=== PATIENT | male | born 1970 | race Caucasian/White ===

== ENCOUNTER 2016-11-04 14:49 | Emergency (ER) | payer MEDICARE ==
[2016-11-04] MEDS ORDERED: Adacel Vial IM ONE ×2 (14:58→15:15)
[2016-11-04] MEDS ORDERED: XYLOCAINE 1% HCL 20 ML MDV IJ ONE (15:23)
[2016-11-04 15:24] LABS: Mean Cell Volume 90.4 fl (78-100); Mean Corpuscular Hemoglobin 28.9 pg (26-32); Mean Platelet Volume 10.5 fl (6-9.5); Platelet Count 55 K/mm3 (150-450); Red Blood Count 3.56 M/mm3 (4.1-5.6); Red Cell Distribution Width 15.7 % (11.5-14.0)
--- NOTE | 2016-11-04 15:26 | XRAY ---
Indication: Laceration. Comparison: None 2 projections of the right lower leg demonstrates diffuse soft tissue swelling/edema, mild osteopenia, distal tibial enchondroma, moderate tricompartmental knee degenerative changes, pretibial soft tissue calcified granulomas, and posterior heel spur. No other bony, articular, or soft tissue abnormalities.
[2016-11-04 15:32] LABS: INR 1.47 (0.8-3.0); PROTIME 16.3 SECONDS (8.83-12.87)
[2016-11-04] MEDS ORDERED: XYLOCAINE 1% HCL 20 ML MDV ONE (15:33)
--- NOTE | 2016-11-04 15:33 | XRAY ---
Indication: Right rib injury. Laceration. Comparison: None Portable chest demonstrates cardiomegaly and vascular congestion concerning for mild/early cardiac decompensation. Left costophrenic angle not included. No consolidation or large effusion. Bony thorax intact. Impression: Limited portable chest with cardiomegaly and vascular congestion. Rule out mild/early cardiac decompensation. Superimposed pneumonia not completely excluded.
[2016-11-04 15:40] LABS: ALBUMIN 2.5 g/dL (3.4-5.0); ALKALINE PHOSPHATASE 157 U/L (46-116); ANION GAP 10.5 MEQ/L (5-15); BILIRUBIN,TOTAL 0.6 mg/dL (0.2-1.0); BLOOD UREA NITROGEN 6 mg/dL (9-20); CHLORIDE 105 mEq/L (98-107); Carbon Dioxide 27.8 mEq/L (21-32); Glucose 113 MG/DL (70-110); Potassium 3.5 mEq/L (3.5-5.1); SGOT/AST 35 U/L (15-37); SGPT/ALT 14 U/L (12-78); SODIUM 140 mEq/L (136-145); Total Protein 6.3 gm/dL (6.4-8.2)
[2016-11-04 15:49] LABS: BAND 1 % (0.0-2.0); Eosinophil 6 % (0.00-3.0); Total Cells Counted 100
--- NOTE | 2016-11-04 15:52 | ERPHSYRPT ---
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 He uses a walker at home. Fell today. Cut to the right leg. Family placed a dog leash for tourniquette. He has some pain in right ribs. No head injury today but hit his head 10 days ago.Chronic neck pain. He has no back pain. He has some pain at the right knee. Unsure last tetanus. No diff breathing. He has been recently in the hospital for his liver disease. Timing/Duration: today Allergies/Adverse Reactions: No Known Drug Allergies Allergy (Unverified 11/04/16 15:03) Home Medications: Atenolol 50 mg [Tenormin 50 mg] 50 mg PO DAILY 11/04/16 [History] Bumetanide 1 mg [Bumex 1 mg] 1 mg PO BID 11/04/16 [History] Gabapentin [Neurontin] 600 mg PO TID 11/04/16 [History] Levothyroxine Sodium [Synthroid] 200 mcg PO DAILY 11/04/16 [History] Lisinopril 10 mg [Zestril 10 MG] 10 mg PO DAILY 11/04/16 [History] Omeprazole 20 MG [Prilosec 20 mg] 20 mg PO BID 11/04/16 [History] Oxcarbazepine 300 mg [Trileptal 300 MG Tablet] 300 mg PO BID 11/04/16 [ History] Oxybutynin Chloride Xl 5 mg [Ditropan XL 5 MG] 5 mg PO BID 11/04/16 [ History] Oxycodone HCl Cr 20 mg [Oxycontin 20 MG] 20 mg PO UD 11/04/16 [History] Potassium Chloride 20 Meq [Klor-Con 20 MEQ] 20 meq PO BID 11/04/16 [History] Promethazine HCl 25 mg [Phenergan 25 mg] 25 mg PO UD 11/04/16 [History] Quetiapine Fumarate [Seroquel Xr] 300 mg PO HS 11/04/16 [History] Rifaximin [Xifaxan] 550 mg PO BID 11/04/16 [History] Sertraline HCl [Zoloft] 100 mg PO BID 11/04/16 [History] Tizanidine HCl 4 mg [Zanaflex 4 MG] 4 mg PO TID 11/04/16 [History] Hx Tetanus, Diphtheria Vaccination/Date Given: No Hx Influenza Vaccination/Date Given: Yes (2015) Hx Pneumococcal Vaccination/Date Given: No Immunizations Up to Date: Yes - Review of Systems Constitutional: No Fever, No Chills Eyes: No Symptoms Ears, Nose, & Throat: No Symptoms Respiratory: Dyspnea on Exertion ([place]) (chronic), No Cough Cardiac: Chest Pain (right ribs) Abdominal/Gastrointestinal: No Abdominal Pain, No Nausea, No Vomiting Musculoskeletal: Injury (right lower leg), No Back Pain, No Neck Pain Neurological: No Focal Weakness, No Headache, No Parasthesia All Other Systems: Reviewed and Negative - Past Medical History Pertinent Past Medical History: Yes Endocrine Medical History: Hypothyroidism GI Medical History: Cirrhosis, Hepatitis - Past Surgical History Past Surgical History: Yes Gastrointestinal: Cholecystectomy - Social History Smoking Status: Current every day smoker How long have you smoked: YRS Exposure to second hand smoke: No Drug Use: none Patient Lives Alone: No - Nursing Vital Signs Nursing Vital Signs: Initial Vital Signs Temperature 98.8 F Temperature Source Oral Pulse Rate 60 Respiratory Rate 22 Blood Pressure [] 106/58 Pain Intensity 0 - Physical Exam General Appearance: alert, obese, other (edematous with leaking fluid from legs) Eye Exam: PERRL/EOMI Ears, Nose, Throat Exam: moist mucous membranes Neck Exam: normal inspection, non-tender, supple, No midline tenderness Respiratory Exam: normal breath sounds, lungs clear Cardiovascular Exam: regular rate/rhythm Gastrointestinal/Abdomen Exam: soft, No tenderness, No distention Back Exam: normal inspection, No vertebral tenderness Extremity Exam: lacerations (2 verticle right lower pretibial lacerations) Neurologic Exam: alert, oriented x 3, cooperative, No motor deficits Skin Exam: warm, dry SpO2 Interpretation: normal SpO2: 96 Oxygen Delivery: Room Air Procedures - Laceration/Wound Repair right lower leg pretibial area Wound Location: Right, lower leg Wound Length (cm): 9 Wound's Depth, Shape: linear, into subcut Wound Explored: no foreign body noted Irrigated: Yes Hibiclens Prep: Yes Anesthesia: local, 1% Lidocaine Volume Anesthetic (ccs): 10 Wound Repaired With: sutures Suture Size/Type: 4-0, prolene Progress: 11/04/16 16:35 4 cm vertical laceration closed with 4-0 prolene simple interupted and horizontal mattress sutures #4. 5cm vertical laceration closed with 4-0 prolene simple interupted and horizontal mattress sutures #7. The leg is leaking large clear serous fluid from edematous state. - Course Nursing assessment & vital signs reviewed: Yes - Radiology Exams right lower leg X-ray Interpretation: Discussed w/ radiologist, No Fracture cxr X-ray Interpretation: Discussed w/ radiologist (CM with possible cardiac decompensation) - CT Exams head, cervical CT Interpretation: Negative, Tele-radiologist Report Ordered Tests: Active Orders 24 hr Category Date Time Status Clean Catch Urine Specimen STAT Care 11/04/16 18:21 Active IV Insertion STAT Care 11/04/16 14:58 Active Prepare for Sutures STAT Care 11/04/16 15:23 Active Sutures STAT Care 11/04/16 15:24 Active Wound Care STAT Care 11/04/16 14:58 Active CERVICAL SPINE WO CONTRAST [CT] Stat Exams 11/04/16 16:33 Completed CHEST 1 VIEW (PORTABLE) Stat Exams 11/04/16 14:58 Completed HEAD WITHOUT CONTRAST [CT] Stat Exams 11/04/16 16:32 Completed LOWER LEG Stat Exams 11/04/16 14:58 Completed CBC W DIFF Stat Lab 11/04/16 15:05 Completed CMP Stat Lab 11/04/16 15:05 Completed MAG [MAGNESIUM] Stat Lab 11/04/16 16:18 Completed Manual Differential NC Stat Lab 11/04/16 15:05 Completed PROTIME WITH INR Stat Lab 11/04/16 15:05 Completed PTT Stat Lab 11/04/16 15:05 Completed Urine Triage Profile Stat Lab 11/04/16 18:21 Ordered Medication Summary Discontinued Medications Generic Name Dose Route Start Last Admin Trade Name Lonnie PRN Reason Stop Dose Admin Diphtheria/Tetanus/Acell Pertussis 0.5 ml 11/04/16 14:58 11/04/16 15:16 Adacel Vial IM 11/04/16 14:59 0.5 ml .ONCE ONE Administration Diphtheria/Tetanus/Acell Pertussis Confirm 11/04/16 15:15 Adacel Vial Administered 11/04/16 15:16 Dose 0.5 ml IM .STK-MED ONE Doxycycline Hyclate 100 mg 11/04/16 18:07 11/04/16 18:22 Vibramycin 100 Mg PO 11/04/16 18:08 100 mg STAT ONE Administration Doxycycline Hyclate Confirm 11/04/16 18:20 Vibramycin 100 Mg Administered 11/04/16 18:21 Dose 100 mg .ROUTE .STK-MED ONE Lidocaine HCl 5 ml 11/04/16 15:23 11/04/16 15:35 Xylocaine 1% Hcl 20 Ml Mdv IJ 11/04/16 15:24 5 ml STAT ONE Administration Lidocaine HCl Confirm 11/04/16 15:33 Xylocaine 1% Hcl 20 Ml Mdv Administered 11/04/16 15:34 Dose 5 ml .ROUTE .STK-MED ONE Lab/Rad Data: Laboratory Result Diagrams 11/04/16 15:05 11/04/16 15:05 Laboratory Results 11/04/16 11/04/16 11/04/16 Range/Units 16:18 16:18 15:05 WBC (4.0-10.5) K/mm3 RBC (4.1-5.6) M/mm3 Hgb (12.5-18.0) gm/dl Hct (42-50) % MCV (78-100) fl MCH (26-32) pg MCHC (32-36) g/dl RDW (11.5-14.0) % Plt Count (150-450) K/mm3 MPV (6-9.5) fl Segmented Neutrophils (36.-66.) % Band Neutrophils (0.0-2.0) % Lymphocytes (Manual) (24-44) % Monocytes (Manual) (0.0-12.0) % Eosinophils (Manual) (0.00-3.0) % Differential Comment Platelet Estimate (NORMAL) INR 1.47 (0.8-3.0) PTT 38.0 H (24.1-36.1) SECONDS Sodium (136-145) mEq/L Potassium (3.5-5.1) mEq/L Chloride (98-107) mEq/L Carbon Dioxide (21-32) mEq/L Anion Gap (5-15) MEQ/L BUN (9-20) mg/dL Creatinine (0.55-1.30) mg/dl Estimated GFR ML/MIN Glucose (70-110) MG/DL Calcium (8.5-10.1) mg/dL Magnesium 1.5 L (1.8-2.4) mg/dL Total Bilirubin (0.2-1.0) mg/dL AST (15-37) U/L ALT (12-78) U/L Alkaline Phosphatase (46-116) U/L Ammonia 55 H (11-32) MMOL/l Serum Total Protein (6.4-8.2) gm/dL Albumin (3.4-5.0) g/dL 11/04/16 11/04/16 Range/Units 15:05 15:05 WBC 4.0 (4.0-10.5) K/mm3 RBC 3.56 L (4.1-5.6) M/mm3 Hgb 10.3 L (12.5-18.0) gm/dl Hct 32.2 L (42-50) % MCV 90.4 (78-100) fl MCH 28.9 (26-32) pg MCHC 32.0 (32-36) g/dl RDW 15.7 H (11.5-14.0) % Plt Count 55 L (150-450) K/mm3 MPV 10.5 H (6-9.5) fl Segmented Neutrophils 50 (36.-66.) % Band Neutrophils 1 (0.0-2.0) % Lymphocytes (Manual) 38 (24-44) % Monocytes (Manual) 5 (0.0-12.0) % Eosinophils (Manual) 6 H (0.00-3.0) % Differential Comment NORMAL Platelet Estimate DECREASED (NORMAL) INR (0.8-3.0) PTT (24.1-36.1) SECONDS Sodium 140 (136-145) mEq/L Potassium 3.5 (3.5-5.1) mEq/L Chloride 105 (98-107) mEq/L Carbon Dioxide 27.8 (21-32) mEq/L Anion Gap 10.5 (5-15) MEQ/L BUN 6 L (9-20) mg/dL Creatinine 0.81 (0.55-1.30) mg/dl Estimated GFR > 60 ML/MIN Glucose 113 H (70-110) MG/DL Calcium 7.8 L (8.5-10.1) mg/dL Magnesium (1.8-2.4) mg/dL Total Bilirubin 0.6 (0.2-1.0) mg/dL AST 35 (15-37) U/L ALT 14 (12-78) U/L Alkaline Phosphatase 157 H (46-116) U/L Ammonia (11-32) MMOL/l Serum Total Protein 6.3 L (6.4-8.2) gm/dL Albumin 2.5 L (3.4-5.0) g/dL - Progress Progress Note: 11/04/16 16:36 While closing wound he is drowsy and has some lethargy. Ammonia and CT ordered. 11/04/16 18:37 Pt father here. He is stable. Explained wound will have likely risk of infection and poor healing. He has C. Called Dr Dia who advised labs are stable and release home with C. He advised send urine tox and start doxycycline. Nurses have contacted patient's home health care. Counseled pt/family regarding: lab results, diagnosis, need for follow-up, rad results - Departure Time of Disposition: 18:38 Departure Disposition: Home Clinical Impression: Laceration of leg not thigh, right, complicated, Cirrhosis, Anasarca Condition: Fair Critical Care Time: No Referrals: RAFAEL FAGAN [Primary Care Provider] - DEEPALI DIA MD [COURTESY STAFF] - Instructions: Care for a Laceration After Repair Additional Instructions: Elevate legs. Home health to change dressings. Change leg dressings daily. Keep dry dressings on leg. Call DR Dia tomorrow for further instructions. Rx doxycycline next dose in AM. Return to ER for further concerns. Follow up with Dr Dia for wound care. Prescriptions: Doxycycline Hyclate 100 mg [Vibramycin 100 MG] 1 tab PO BID #20 tab
[2016-11-04 15:53] LABS: Platelet Estimate DECREASED (NORMAL)
--- NOTE | 2016-11-04 17:12 | XRAY ---
Indication: Acute mental status change. Posterior head injury 6 days ago following fall. Multiple contiguous axial images obtained through the cervical spine. Sagittal and coronal reformatted images obtained. Comparison: None Axial images negative for acute fracture, suspicious bony lesions, or spinal canal stenosis. Moderate atlantoaxial degenerative changes. Mild C5-C7 degenerative endplate spurring and minimal bilateral degenerative facet arthropathy. Sagittal and coronal reformatted images demonstrates lordotic reversal, positional versus paraspinal muscular spasm. C6-C7 disc space narrowing. Small inferior C2 and opposing C4-C5 Schmorl nodes. No acute compression fracture, subluxation, or jump facet. Normal appearing craniocervical junction. Visualized noncontrasted soft tissues including lung apices unremarkable. Patient is edentulous. CT had reported separately. Impression: 1. Lordotic reversal, positional versus paraspinal spasm. 2. Negative for acute fracture/subluxation. 3. C5-C7 degenerative disc disease. 4. C2/C4/C5 Schmorl nodes. CTDI 72.86
--- NOTE | 2016-11-04 17:13 | XRAY ---
Indication: Acute mental status change. Posterior head injury 6 days ago following fall. Multiple contiguous axial images obtained through the head without contrast. Comparison: None Lateral ventricles are mildly asymmetric presumed developmental. Acute intracranial hemorrhage, abnormal extra-axial fluid collection, or mass effect. Fourth ventricle is midline without hydrocephalus. Cote-white matter differentiation preserved. Bony calvarium intact. Minimal mucosal thickening of both ethmoid sinuses. Mastoid air cells are clear. Impression: No acute intracranial abnormalities. Minimal paranasal sinus disease. CTDI 51.90
[2016-11-04] MEDS ORDERED: Vibramycin 100 MG PO ONE (18:07)
[2016-11-04] MEDS ORDERED: Vibramycin 100 MG ONE (18:20)
[2016-11-04] MEDS ORDERED: Lasix 40 MG/4 ML ONE (18:40)
[2016-11-04 18:41] VITALS: O2SAT 96
[2016-11-04] MEDS ORDERED: Lasix 40 MG/4 ML IV ONE (18:41)
[2016-11-04 19:33] VITALS: BP 108/57; PULSE 90
== END 2016-11-04 19:33 | disposition home or self-care (01) ==
LOC: MERGE 14:49 → ED 14:49
PROC: 0HQKXZZ Repair Right Lower Leg Skin, External Approach (ICD-10-PCS; principal; 2016-11-04)
DX: S81.811A Laceration without foreign body, right lower leg, initial encounter (principal); W10.9XXA Fall (on) (from) unspecified stairs and steps, initial encounter; K74.60 Unspecified cirrhosis of liver; R60.1 Generalized edema
CPT/HCPCS: 99284; 36000; 85610; 85730; 36415; 83735; 82140; 85025; 80053; 71010; 73590; 70450; 72125; 12004; A9270; 90471; 90715; 96374; J1940

== ENCOUNTER 2016-11-08 20:36 | Emergency (ER) | payer MEDICARE ==
--- NOTE | 2016-11-08 21:18 | ERPHSYRPT ---
- History of Present Illness Time Seen by Provider: 11/08/16 21:00 Source: patient Exam Limitations: clinical condition Patient Subjective Stated Complaint: pt states he feeel on wednesday and had sutures put in his rt leg, states they busted open today Triage Nursing Assessment: pt alert and oriented, answers questions approp. respirations nonlabored. transfer to stretcher from wheelchair with asssist of 1 , limping gait noted. lower ext oz and tight with lacerations to rt le, weeping noted from lacs. open wound noted to top of lt foot. no drainage. Physician History: PATIENT FELL AND SUSTAINED LACERATIONS OVER HIS RIGHT MID SOLOMON, EVALUATED IN EMERGENCY NOVEMBER 04, 2016, HAD WOUNDS SUTURED, NOW STATES SOME STITCHES HAVE PULLED THROUGH THE WOUND. DENIES FEVER OR CHILLS. Method of Injury: fell (4 DAYS AGO) Severity of Pain-Max: mild Severity of Pain-Current: mild Lower Extremities Pain: leg: right Modifying Factors: Improves With: nothing Associated Symptoms: none Allergies/Adverse Reactions: No Known Drug Allergies Allergy (Verified 11/08/16 21:20) Home Medications: Atenolol 50 mg [Tenormin 50 mg] 50 mg PO DAILY 11/04/16 [History] Bumetanide 1 mg [Bumex 1 mg] 1 mg PO BID 11/04/16 [History] Gabapentin [Neurontin] 600 mg PO TID 11/04/16 [History] Levothyroxine Sodium [Synthroid] 200 mcg PO DAILY 11/04/16 [History] Lisinopril 10 mg [Zestril 10 MG] 10 mg PO DAILY 11/04/16 [History] Omeprazole 20 MG [Prilosec 20 mg] 20 mg PO BID 11/04/16 [History] Oxcarbazepine 300 mg [Trileptal 300 MG Tablet] 300 mg PO BID 11/04/16 [ History] Oxybutynin Chloride Xl 5 mg [Ditropan XL 5 MG] 5 mg PO BID 11/04/16 [ History] Oxycodone HCl Cr 20 mg [Oxycontin 20 MG] 20 mg PO UD 11/04/16 [History] Potassium Chloride 20 Meq [Klor-Con 20 MEQ] 20 meq PO BID 11/04/16 [History] Promethazine HCl 25 mg [Phenergan 25 mg] 25 mg PO UD 11/04/16 [History] Quetiapine Fumarate [Seroquel Xr] 300 mg PO HS 11/04/16 [History] Rifaximin [Xifaxan] 550 mg PO BID 11/04/16 [History] Sertraline HCl [Zoloft] 100 mg PO BID 11/04/16 [History] Tizanidine HCl 4 mg [Zanaflex 4 MG] 4 mg PO TID 11/04/16 [History] Hx Tetanus, Diphtheria Vaccination/Date Given: No Hx Influenza Vaccination/Date Given: Yes (2015) Hx Pneumococcal Vaccination/Date Given: No Immunizations Up to Date: Yes - Review of Systems Constitutional: No Fever, No Chills Eyes: No Symptoms Ears, Nose, & Throat: No Symptoms Respiratory: No Cough, No Dyspnea Cardiac: No Chest Pain, No Edema, No Syncope Abdominal/Gastrointestinal: No Abdominal Pain, No Nausea, No Vomiting, No Diarrhea Genitourinary Symptoms: No Dysuria Musculoskeletal: Other (WOUND DRAINAGE), No Back Pain, No Neck Pain Skin: No Rash Neurological: No Dizziness, No Focal Weakness, No Sensory Changes Psychological: No Symptoms Endocrine: No Symptoms All Other Systems: Reviewed and Negative - Past Medical History Pertinent Past Medical History: Yes Cardiac History: Coronary Artery Disease, Hypertension Endocrine Medical History: Hypothyroidism Musculoskeletal History: Osteoarthritis GI Medical History: Hepatitis, Cirrhosis Other Medical History: frequent cellutlitis in lower ext - Past Surgical History Past Surgical History: Yes Gastrointestinal: Cholecystectomy Musculoskeletal: Orthopedic Surgery - Social History Smoking Status: Current every day smoker How long have you smoked: YRS Exposure to second hand smoke: No Drug Use: none Patient Lives Alone: No - Nursing Vital Signs Nursing Vital Signs: Initial Vital Signs Temperature 98.7 F Temperature Source Oral Pulse Rate 63 Respiratory Rate 18 Blood Pressure [Right Arm] 110/48 Pain Intensity 9 - Physical Exam General Appearance: alert Eyes, Ears, Nose, Throat Exam: moist mucous membranes Neck Exam: non-tender, supple Cardiovascular/Respiratory Exam: chest non-tender, normal breath sounds, regular rate/rhythm, no respiratory distress Back Exam: No vertebral tenderness Legs Exam: right leg: other (RIGHT INCISIONAL WOUND EDGES INTACT, SOME OF STITCHES PULLED THROUGH WOUND EDGES, NO ERYTHEMA OF WOUND EDGES) Foot Exam: bilateral foot: other (BILATERAL PEDIS PULSES 2+) Neuro/Tendon Exam: normal sensation, normal motor functions Mental Status Exam: alert, oriented x 3, cooperative Skin Exam: normal color, warm, dry SpO2: 99 Oxygen Delivery: Room Air - Progress Counseled pt/family regarding: diagnosis, need for follow-up - Departure Time of Disposition: 21:35 Departure Disposition: Home Clinical Impression: WOUND RECHECK Condition: Stable Critical Care Time: No Referrals: RAFAEL FAGAN [Primary Care Provider] - Additional Instructions: CONTINUE ANTIBIOTIC PRESCRIBED. ELEVATE FEET WHILE SUPINE OR SITTING POSITION. CLEANSE WOUNDS WITH SOAP AND WATER TWICE DAILY. CONTINUE DRESSING CHANGES EVERY 6 HOURS NEEDED. MAY USE BACITRACIN OINTMENT OVER WOUND AFTER CLEANSING WITH SOAP AND WATER. CONSULT YOUR FAMILY PHYSICIAN FOR EVALUATION IN 4 -5 DAYS. RETURN TO EMERGENCY FOR ONSET OF FEVER OR CHILLS.
[2016-11-08 21:57] VITALS: BP 110/60; PULSE 64; O2SAT 100
== END 2016-11-08 21:57 | disposition home or self-care (01) ==
LOC: ED 20:36
DX: T81.33XA Disruption of traumatic injury wound repair, initial encounter (principal)
CPT/HCPCS: 99281

== ENCOUNTER 2016-12-26 23:36 | Emergency (ER) | payer MEDICARE ==
[2016-12-27] MEDS ORDERED: Hydromorphone 1 mg/ml Ampule IV ONE ×2 (00:29→03:29)
[2016-12-27] MEDS ORDERED: FEVERALL 650 MG PR STA (00:29)
[2016-12-27] MEDS ORDERED: Sodium Chloride 0.9% 1000 ML 1,000 ML IV SCH (00:30)
[2016-12-27] MEDS ORDERED: ROCEPHIN 2 Gm-D5w 50ML BAG** 50 ML IV ONE ×2 (00:33→00:48)
[2016-12-27] MEDS ORDERED: Zofran 4 MG/2 ML VIAL IV ONE (00:37)
--- NOTE | 2016-12-27 00:37 | ERPHSYRPT ---
- History of Present Illness Time Seen by Provider: 12/27/16 00:14 Historian: patient, family Patient Subjective Stated Complaint: states that he has had fever on and off for the last 9 days - nausea and vomiting x 3 days x multiple episodes - called liver specialist in [facility], who advised him to be seen - is awaiting a liver transplant - states that he also quit taking his Percocet and MS x 3 weeks ago Triage Nursing Assessment: wc to treatment area - assisted to cart per EMS personnel - moves all extremities with some rigidity. alert/oriented - flat affect. skin hot/dry - no rash - states that he fell a few days ago et has some injury on the left anterior foot as a result. res Physician History: CC: fever, abd pain Hx: 46 y/o male patient of Dr Pelaez/Minerv[place]. He has hx of stage 4 cirrhosis and ascites with hx of hepatic encephalopathy. He reports recent fall with rib fractures. He has had fevers for the past 9 nights. [facility] has visited. He now has abd pain. Decreased urination 3 times today and occasional incontinence. No shortness of breath. Not confused. Timing/Duration: today (worse) Severity of Pain-Max: moderate Severity of Pain-Current: moderate Allergies/Adverse Reactions: No Known Drug Allergies Allergy (Verified 12/26/16 23:46) Home Medications: Atenolol 50 mg [Tenormin 50 mg] 50 mg PO DAILY 11/04/16 [History] Bumetanide 1 mg [Bumex 1 mg] 1 mg PO BID 11/04/16 [History] Levothyroxine Sodium [Synthroid] 200 mcg PO DAILY 11/04/16 [History] Lisinopril 10 mg [Zestril 10 MG] 10 mg PO DAILY 11/04/16 [History] Omeprazole 20 MG [Prilosec 20 mg] 20 mg PO BID 11/04/16 [History] Oxcarbazepine 300 mg [Trileptal 300 MG Tablet] 300 mg PO BID 11/04/16 [ History] Oxybutynin Chloride Xl 5 mg [Ditropan XL 5 MG] 5 mg PO BID 11/04/16 [ History] Potassium Chloride 20 Meq [Klor-Con 20 MEQ] 40 meq PO BID 11/04/16 [History] Promethazine HCl 25 mg [Phenergan 25 mg] 25 mg PO UD PRN 11/04/16 [History ] Quetiapine Fumarate [Seroquel Xr] 75 mg PO DAILY 11/04/16 [History] Rifaximin [Xifaxan] 550 mg PO BID 11/04/16 [History] Tizanidine HCl 4 mg [Zanaflex 4 MG] 4 mg PO TID 11/04/16 [History] Cephalexin Monohydrate [Cephalexin] 500 mg PO QID 11/08/16 [History] Lactulose 10 gm PO QID 11/08/16 [History] Polyethylene Glycol 3350 17 gm [Miralax Powder 17GM PACKET] 17 gm PO QID 08/15 [History] Hx Tetanus, Diphtheria Vaccination/Date Given: Yes Hx Influenza Vaccination/Date Given: Yes Hx Pneumococcal Vaccination/Date Given: No Immunizations Up to Date: Yes - Review of Systems Constitutional: Fever, Chills, Fatigue, Malaise Eyes: No Symptoms Ears, Nose, & Throat: No Symptoms Respiratory: No Cough Cardiac: No Chest Pain Abdominal/Gastrointestinal: Abdominal Pain, Nausea, No Vomiting, No Diarrhea Genitourinary Symptoms: Incontinence, No Dysuria Musculoskeletal: No Back Pain Skin: No Rash Neurological: No Headache All Other Systems: Reviewed and Negative - Past Medical History Pertinent Past Medical History: Yes Cardiac History: Coronary Artery Disease, Hypertension Endocrine Medical History: Hypothyroidism Musculoskeletal History: Osteoarthritis GI Medical History: Hepatitis, Cirrhosis Other Medical History: frequent cellutlitis in lower ext - Past Surgical History Past Surgical History: Yes Gastrointestinal: Cholecystectomy Musculoskeletal: Orthopedic Surgery - Social History Smoking Status: Former smoker How long have you smoked: YRS Exposure to second hand smoke: No Drug Use: none Patient Lives Alone: No - Nursing Vital Signs Nursing Vital Signs: Initial Vital Signs Temperature 100.6 F Temperature Source Oral Pulse Rate 95 Respiratory Rate 20 Blood Pressure [] 142/73 Pain Intensity 0 - Physical Exam General Appearance: alert Eye Exam: PERRL/EOMI, No scleral icterus Ears, Nose, Throat Exam: normal ENT inspection, dry mucous membranes Neck Exam: normal inspection, supple Respiratory Exam: normal breath sounds, chest tenderness Cardiovascular Exam: regular rate/rhythm, No murmur Gastrointestinal/Abdomen Exam: soft, tenderness (diffuse without point tenderness) Male Genitalia Exam: No testicular tenderness Back Exam: normal inspection Extremity Exam: normal range of motion, pedal edema, other (brawny edema, no rosette cellulitis, venous stasis changes) Neurologic Exam: alert, oriented x 3, cooperative, welt beater II-XII nml as tested, sensation nml, No motor deficits Skin Exam: dry, other (hot skin) SpO2 Interpretation: normal SpO2: 94 Oxygen Delivery: Room Air - Course Nursing assessment & vital signs reviewed: Yes - Radiology Exams cxr X-ray Interpretation: Reviewed by me (mild congestion) - CT Exams abd/pelvis CT Interpretation: Tele-radiologist Report (cirrhosis, ascites, inflammation of dudodenum and pancreas, multiple healing rib fractures, severe splenomegaly) Ordered Tests: Active Orders 24 hr Category Date Time Status Catheter-[place] Reyes STAT Care 12/27/16 00:28 Active Clean Catch Urine Specimen STAT Care 12/27/16 00:19 Active IV Insertion STAT Care 12/27/16 00:19 Active NPO (ED) STAT Care 12/27/16 00:19 Active Rectal Temperature STAT Care 12/27/16 00:29 Active ABDOMEN AND PELVIS W/0 CONTRAS [CT] Stat Exams 12/27/16 00:29 Taken CHEST 1 VIEW (PORTABLE) Stat Exams 12/27/16 00:29 Taken BLOOD CULTURE Stat Lab 12/27/16 00:56 Received BMP Stat Lab 12/27/16 00:40 Completed CBC W DIFF Stat Lab 12/27/16 00:40 Completed CULTURE,URINE Stat Lab 12/27/16 01:30 Received HEPATIC FUNCTION PANEL Stat Lab 12/27/16 00:40 Completed LIPASE Stat Lab 12/27/16 00:40 Completed Lactic Acid Urgent Lab 12/27/16 00:45 Completed Manual Differential NC Stat Lab 12/27/16 00:40 Completed PROTIME WITH INR Stat Lab 12/27/16 00:40 Completed UA W/ MICROSCOPIC Stat Lab 12/27/16 01:30 Completed Medication Summary Generic Name Dose Route Start Last Admin Trade Name Freq PRN Reason Stop Dose Admin Sodium Chloride 1,000 mls @ 100 mls/hr 12/27/16 00:30 12/27/16 00:50 Sodium Chloride 0.9% 1000 Ml IV 01/26/17 00:29 100 mls/hr .Q10H MENDEL Administration Discontinued Medications Generic Name Dose Route Start Last Admin Trade Name Lonnie PRN Reason Stop Dose Admin Acetaminophen 975 mg 12/27/16 00:29 12/27/16 01:05 Feverall 650 Mg MD 12/27/16 00:30 975 mg STAT STA Administration Acetaminophen Confirm 12/27/16 00:48 Feverall 650 Mg Administered 12/27/16 00:49 Dose 1,300 mg .ROUTE .STK-MED ONE Famotidine 20 mg 12/27/16 01:56 12/27/16 02:01 Pepcid 20 Mg Vial IV 12/27/16 01:57 20 mg STAT ONE Administration Famotidine Confirm 12/27/16 01:59 Pepcid 20 Mg Vial Administered 12/27/16 02:00 Dose 20 mg IV .STK-MED ONE Hydromorphone HCl 1 mg 12/27/16 00:29 12/27/16 01:00 Hydromorphone 1 Mg/Ml Ampule IV 12/27/16 00:30 1 mg STAT ONE Administration Hydromorphone HCl Confirm 12/27/16 00:48 Hydromorphone 1 Mg/Ml Ampule Administered 12/27/16 00:49 Dose 1 mg .ROUTE .STK-MED ONE Ceftriaxone Sodium/Dextrose 50 mls @ 100 mls/hr 12/27/16 00:33 12/27/16 00:50 Rocephin 2 Gm-D5w 50ml Bag IV 12/27/16 01:02 100 mls/hr STAT ONE Administration Ceftriaxone Sodium/Dextrose Confirm 12/27/16 00:48 Rocephin 2 Gm-D5w 50ml Bag Administered 12/27/16 00:49 Dose 50 mls @ ud IV .STK-MED ONE Ondansetron HCl 4 mg 12/27/16 00:37 12/27/16 01:00 Zofran 4 Mg/2 Ml Vial IV 12/27/16 00:38 4 mg STAT ONE Administration Ondansetron HCl Confirm 12/27/16 00:48 Zofran 4 Mg/2 Ml Vial Administered 12/27/16 00:49 Dose 4 mg .ROUTE .STK-MED ONE Lab/Rad Data: Laboratory Result Diagrams 12/27/16 00:40 12/27/16 00:40 Laboratory Results 12/27/16 12/27/16 12/27/16 Range/Units 01:30 00:45 00:40 WBC (4.0-10.5) K/mm3 RBC (4.1-5.6) M/mm3 Hgb (12.5-18.0) gm/dl Hct (42-50) % MCV (78-100) fl MCH (26-32) pg MCHC (32-36) g/dl RDW (11.5-14.0) % Plt Count (150-450) K/mm3 MPV (6-9.5) fl Segmented Neutrophils (36.-66.) % Lymphocytes (Manual) (24-44) % Monocytes (Manual) (0.0-12.0) % Eosinophils (Manual) (0.00-3.0) % Differential Comment Platelet Estimate (NORMAL) INR (0.8-3.0) Sodium (136-145) mEq/L Potassium (3.5-5.1) mEq/L Chloride (98-107) mEq/L Carbon Dioxide (21-32) mEq/L Anion Gap (5-15) MEQ/L BUN (9-20) mg/dL Creatinine (0.55-1.30) mg/dl Estimated GFR ML/MIN Glucose (70-110) MG/DL Lactic Acid 1.1 (0.4-2.0) Calcium (8.5-10.1) mg/dL Total Bilirubin (0.2-1.0) mg/dL Direct Bilirubin (0.0-0.2) MG/DL AST (15-37) U/L ALT (12-78) U/L Alkaline Phosphatase (46-116) U/L Ammonia 28 (11-32) MMOL/l Serum Total Protein (6.4-8.2) gm/dL Albumin (3.4-5.0) g/dL Lipase (73-393) U/L Ur Collection Type CATH Urine Color KIERA (YELLOW) Urine Appearance CLEAR (CLEAR) Urine pH 9.0 (5-6) Ur Specific [place] 1.015 (1.005-1.025) Urine Protein 30 (Negative) Urine Glucose (UA) NEGATIVE (NEGATIVE) mg/dL Urine Ketones NEGATIVE (NEGATIVE) Urine Nitrite NEGATIVE (NEGATIVE) Urine Bilirubin NEGATIVE (NEGATIVE) Urine Urobilinogen 2 (0-1) mg/dL Urine WBC (Auto) NEGATIVE (NEGATIVE) Urine RBC (Auto) NEGATIVE (0-5) Christopher/ul Urine Bacteria RARE (NEGATIVE) /HPF Urine Mucus SLIGHT (NEGATIVE) /HPF Specimen Received 12/27/16:0130 12/27/16 12/27/16 12/27/16 Range/Units 00:40 00:40 00:40 WBC 9.1 (4.0-10.5) K/mm3 RBC 3.98 L (4.1-5.6) M/mm3 Hgb 11.3 L (12.5-18.0) gm/dl Hct 34.6 L (42-50) % MCV 86.9 (78-100) fl MCH 28.3 (26-32) pg MCHC 32.7 (32-36) g/dl RDW 16.8 H (11.5-14.0) % Plt Count 44 L (150-450) K/mm3 MPV 10.4 H (6-9.5) fl Segmented Neutrophils 86 H (36.-66.) % Lymphocytes (Manual) 6 L (24-44) % Monocytes (Manual) 6 (0.0-12.0) % Eosinophils (Manual) 2 (0.00-3.0) % Differential Comment NORMAL Platelet Estimate DECREASED (NORMAL) INR 1.46 (0.8-3.0) Sodium 138 (136-145) mEq/L Potassium 4.5 (3.5-5.1) mEq/L Chloride 105 (98-107) mEq/L Carbon Dioxide 27.3 (21-32) mEq/L Anion Gap 10.1 (5-15) MEQ/L BUN 6 L (9-20) mg/dL Creatinine 0.69 (0.55-1.30) mg/dl Estimated GFR > 60 ML/MIN Glucose 113 H (70-110) MG/DL Lactic Acid (0.4-2.0) Calcium 8.5 (8.5-10.1) mg/dL Total Bilirubin 1.3 H (0.2-1.0) mg/dL Direct Bilirubin 0.35 H (0.0-0.2) MG/DL AST 31 (15-37) U/L ALT 17 (12-78) U/L Alkaline Phosphatase 138 H (46-116) U/L Ammonia (11-32) MMOL/l Serum Total Protein 6.5 (6.4-8.2) gm/dL Albumin 2.4 L (3.4-5.0) g/dL Lipase 191 (73-393) U/L Ur Collection Type Urine Color (YELLOW) Urine Appearance (CLEAR) Urine pH (5-6) Ur Specific [place] (1.005-1.025) Urine Protein (Negative) Urine Glucose (UA) (NEGATIVE) mg/dL Urine Ketones (NEGATIVE) Urine Nitrite (NEGATIVE) Urine Bilirubin (NEGATIVE) Urine Urobilinogen (0-1) mg/dL Urine WBC (Auto) (NEGATIVE) Urine RBC (Auto) (0-5) Christopher/ul Urine Bacteria (NEGATIVE) /HPF Urine Mucus (NEGATIVE) /HPF Specimen Received - Progress Progress Note: 12/27/16 02:27 Pt stable here. He requests admission at [facility] as that is the hospital he usually goes to and he sees Dr Palma. Called [facility] one call and spoke to Dr Palma who advised pt should be admitted to hospitalist. Spoke to hospitalist Dr Patten who accepts pt. Cultures sent. Rocephin given. He needs coverage for SBP. Counseled pt/family regarding: lab results, diagnosis, need for follow-up, rad results - Departure Time of Disposition: 02:29 Departure Disposition: Transfer Clinical Impression: Spontaneous bacterial peritonitis, Cirrhosis, Fever Condition: Fair Critical Care Time: No
[2016-12-27] MEDS ORDERED: FEVERALL 650 MG ONE (00:48)
[2016-12-27] MEDS ORDERED: Hydromorphone 1 mg/ml Ampule ONE ×2 (00:48→04:05)
[2016-12-27] MEDS ORDERED: Sodium Chloride 0.9% 1000 ML 1,000 ML ONE (00:48)
[2016-12-27] MEDS ORDERED: Zofran 4 MG/2 ML VIAL ONE (00:48)
[2016-12-27 01:00] LABS: Mean Cell Volume 86.9 fl (78-100); Mean Platelet Volume 10.4 fl (6-9.5); Platelet Count 44 K/mm3 (150-450); Red Blood Count 3.98 M/mm3 (4.1-5.6); Red Cell Distribution Width 16.8 % (11.5-14.0); White Blood Count 9.1 K/mm3 (4.0-10.5)
[2016-12-27 01:06] LABS: Mean Corpuscular Hemoglobin 28.3 pg (26-32)
[2016-12-27 01:11] LABS: INR 1.46 (0.8-3.0); PROTIME 16.2 SECONDS (8.83-12.87)
[2016-12-27 01:20] LABS: ALBUMIN 2.4 g/dL (3.4-5.0); ALKALINE PHOSPHATASE 138 U/L (46-116); ANION GAP 10.1 MEQ/L (5-15); BILIRUBIN,TOTAL 1.3 mg/dL (0.2-1.0); BLOOD UREA NITROGEN 6 mg/dL (9-20); CHLORIDE 105 mEq/L (98-107); Carbon Dioxide 27.3 mEq/L (21-32); Direct Bilirubin 0.35 MG/DL (0.0-0.2); Glucose 113 MG/DL (70-110); LIPASE 191 U/L (73-393); Potassium 4.5 mEq/L (3.5-5.1); SGOT/AST 31 U/L (15-37); SGPT/ALT 17 U/L (12-78); SODIUM 138 mEq/L (136-145); Total Protein 6.5 gm/dL (6.4-8.2)
[2016-12-27 01:48] LABS: Bacteria RARE /HPF (NEGATIVE); COMPLETE URINE MICROSCOPIC? YES; Collection Type CATH; Mucus SLIGHT /HPF (NEGATIVE)
[2016-12-27 01:49] LABS: Eosinophil 2 % (0.00-3.0); Platelet Estimate DECREASED (NORMAL); Total Cells Counted 100
[2016-12-27] MEDS ORDERED: Pepcid 20 MG VIAL IV ONE ×2 (01:56→01:59)
[2016-12-27 02:05] VITALS: O2SAT 94
[2016-12-27 03:36] VITALS: BP 149/71; PULSE 94
--- NOTE | 2016-12-27 08:52 | XRAY ---
Indication: Fever and productive cough. Comparison: None Portable apical lordotic chest clear. Heart and mediastinal structures within normal limits. Bony thorax intact. Impression: Nonacute chest.
--- NOTE | 2016-12-27 08:57 | XRAY ---
Indication: Nausea and vomiting. Chronic intermittent fever for 9 months. Awaiting liver transplant. Multiple contiguous axial images obtained through the abdomen and pelvis without contrast as ordered. Comparison: None Study slightly degraded due to patient body habitus. Lung bases are clear. Heart is not enlarged. Diffusely cirrhotic liver with small abdominal/pelvic ascites predominantly around the liver. Diffuse mesenteric congestion. Spleen is enlarged measuring 20 cm in greatest axial dimension. No walled off fluid collection or free air. Stomach is distended with food/fluid. Noncontrasted bowel loops appear nonobstructed. There is moderate circumferential wall thickening involving the distal descending and transverse duodenum favoring duodenitis. Pancreatic head demonstrates subtle hypoattenuation suggesting pancreatitis. Previous cholecystectomy. Reyes catheter empties the bladder. Small centimeter/subcentimeter periaortic nodes. Scattered 1 cm inguinal lymph nodes bilaterally. Remaining adrenal glands, kidneys, ureters, and aorta appear unremarkable. Minimal iliac artery calcifications. Osseous structures intact with mild degenerative changes throughout the spine greatest at the L4-L5 level. Small multilevel Schmorl nodes, largest T8. Healing bilateral lower rib fractures. Impression: 1. Limited exam due to body habitus. 2. Inflammation involving the head of the pancreas and duodenum as detailed favoring duodenitis and pancreatitis. 3. Cirrhotic liver with abdominal/pelvic ascites, mesenteric congestion, and splenomegaly. 4. Nonspecific scattered small periaortic and bilateral inguinal lymph nodes. Comment: Preliminary interpretation was made by C. No critical discrepancy CTDI 23.68
== END 2016-12-27 04:35 | disposition short-term general hospital (02) ==
LOC: ED 23:36
DX: K65.2 Spontaneous bacterial peritonitis (principal); K74.60 Unspecified cirrhosis of liver; R50.9 Fever, unspecified; I25.10 Atherosclerotic heart disease of native coronary artery without angina pectoris; I10 Essential (primary) hypertension; E03.9 Hypothyroidism, unspecified; Z79.899 Other long term (current) drug therapy; M19.90 Unspecified osteoarthritis, unspecified site
CPT/HCPCS: 36000; 36415; 51702; 71010; 74176; 80048; 80076; 81000; 82140; 83605; 83690; 85025; 85610; 87040; 87086; 96360; 96365; 96374; 96375; 96376; 99285; J0696; J1170; J2405; A9270-GY

== ENCOUNTER 2018-11-03 19:23 | Observation (INO) | payer MEDICARE ==
[2018-11-03] MEDS ORDERED: Zofran 4 MG/2 ML VIAL IV ONE (20:01)
[2018-11-03] MEDS ORDERED: Pepcid 20 MG VIAL IV ONE ×2 (20:01→20:38)
[2018-11-03] MEDS ORDERED: Sodium Chloride 0.9% 1000 ML 1,000 ML IV STA ×2 (20:01→21:29)
--- NOTE | 2018-11-03 20:01 | ERPHSYRPT ---
- History of Present Illness Time Seen by Provider: 11/03/18 20:00 Historian: patient, family Exam Limitations: no limitations Physician History: 48 y/o white male presents with 9 days nausea, vomiting and diarrhea. pt has had a mild cough. sx not improving. pt began with fever today. pt has not taken any meds to tx fever. no cp, no abd pain. denies earaches, denies sore throat. Timing/Duration: day(s) (9 n/v/d.) Abdominal Pain Onset Location: other (no abd pain) Severity of Pain-Max: none Severity of Pain-Current: none Modifying Factors: Improves With: coughing, vomiting Associated Symptoms: diarrhea, loss of appetite, nausea, vomiting, weakness, No shortness of breath Previous symptoms: no prior history Allergies/Adverse Reactions: nitrofurantoin [From Macrobid] Allergy (Verified 11/03/18 19:35) Home Medications: Atenolol 50 mg [Tenormin 50 mg] 50 mg PO DAILY 11/04/16 [History] Bumetanide 1 mg [Bumex 1 mg] 1 mg PO BID 11/04/16 [History] Levothyroxine Sodium [Synthroid] 200 mcg PO DAILY 11/04/16 [History] Lisinopril 10 mg [Zestril 10 MG] 10 mg PO DAILY 11/04/16 [History] Omeprazole 20 MG [Prilosec 20 mg] 20 mg PO BID 11/04/16 [History] Oxcarbazepine 300 mg [Trileptal 300 MG Tablet] 300 mg PO BID 11/04/16 [ History] Oxybutynin Chloride Xl 5 mg [Ditropan XL 5 MG] 5 mg PO BID 11/04/16 [ History] Potassium Chloride 20 Meq [Klor-Con 20 MEQ] 40 meq PO BID 11/04/16 [History] Promethazine HCl 25 mg [Phenergan 25 mg] 25 mg PO UD PRN 11/04/16 [History ] Quetiapine Fumarate [Seroquel Xr] 75 mg PO DAILY 11/04/16 [History] Rifaximin [Xifaxan] 550 mg PO BID 11/04/16 [History] Tizanidine HCl 4 mg [Zanaflex 4 MG] 4 mg PO TID 11/04/16 [History] Cephalexin Monohydrate [Cephalexin] 500 mg PO QID 11/08/16 [History] Lactulose 10 gm PO QID 11/08/16 [History] Polyethylene Glycol 3350 17 gm [Miralax Powder 17GM PACKET] 17 gm PO QID 08/15 [History] Hx Tetanus, Diphtheria Vaccination/Date Given: Yes Hx Influenza Vaccination/Date Given: Yes Hx Pneumococcal Vaccination/Date Given: No - Review of Systems Constitutional: Fever, Weakness Eyes: No Symptoms Ears, Nose, & Throat: No Symptoms Respiratory: Cough Cardiac: No Symptoms Abdominal/Gastrointestinal: Nausea, Vomiting, Diarrhea, No Abdominal Pain Genitourinary Symptoms: No Symptoms, No Dysuria, No Frequency, No Hematuria Musculoskeletal: Arthralgias, Myalgias Neurological: No Symptoms Psychological: No Symptoms Endocrine: No Symptoms Hematologic/Lymphatic: No Symptoms Immunological/Allergic: No Symptoms All Other Systems: Reviewed and Negative - Past Medical History Pertinent Past Medical History: Yes Neurological History: No Pertinent History ENT History: No Pertinent History Cardiac History: Coronary Artery Disease, Hypertension Respiratory History: No Pertinent History Endocrine Medical History: Hypothyroidism Musculoskeletal History: Osteoarthritis GI Medical History: Hepatitis, Cirrhosis History: No Pertinent History Psycho-Social History: No Pertinent History Other Medical History: frequent cellutlitis in lower ext - Past Surgical History Past Surgical History: Yes Neuro Surgical History: No Pertinent History Cardiac: No Pertinent History Respiratory: No Pertinent History Gastrointestinal: Cholecystectomy Musculoskeletal: Orthopedic Surgery - Social History Smoking Status: Former smoker How long have you smoked: YRS Exposure to second hand smoke: No Drug Use: none Patient Lives Alone: No - Nursing Vital Signs Nursing Vital Signs: Initial Vital Signs Temperature 101.7 F 11/03/18 19:35 Pulse Rate 58 L 11/03/18 19:35 Respiratory Rate 20 11/03/18 19:35 Blood Pressure 176/90 11/03/18 19:35 O2 Sat by Pulse Oximetry 95 11/03/18 19:35 Pain Scale Pain Intensity 6 - Physical Exam General Appearance: mild distress, alert, anxiety Eye Exam: PERRL/EOMI, eyes nml inspection Ears, Nose, Throat Exam: normal ENT inspection, TMs normal, pharynx normal, dry mucous membranes Neck Exam: normal inspection, non-tender, supple, full range of motion Respiratory Exam: normal breath sounds, lungs clear, airway intact, No chest tenderness, No respiratory distress, No diminished breath sounds, No accessory muscle use Cardiovascular Exam: regular rate/rhythm, normal heart sounds, normal peripheral pulses Gastrointestinal/Abdomen Exam: soft, normal bowel sounds, No tenderness, No guarding, No rebound Rectal Exam: not done Back Exam: normal inspection, normal range of motion, No CVA tenderness, No vertebral tenderness Extremity Exam: normal inspection, normal range of motion, pelvis stable Neurologic Exam: alert, oriented x 3, cooperative, jewelry setter II-XII nml as tested Skin Exam: normal color, warm, dry Lymphatic Exam: No adenopathy SpO2 Interpretation: normal O2 Delivery: Room Air - Course Nursing assessment & vital signs reviewed: Yes Ordered Tests: Active Orders 24 hr Category Date Time Status Clean Catch Urine Specimen STAT Care 11/03/18 20:01 Active IV Insertion STAT Care 11/03/18 20:01 Active CHEST 1 VIEW (PORTABLE) Stat Exams 11/03/18 20:02 Taken AMYLASE Stat Lab 11/03/18 20:44 Completed BLOOD CULTURE Stat Lab 11/03/18 20:44 Received CBC W DIFF Stat Lab 11/03/18 20:44 Completed CMP Stat Lab 11/03/18 20:44 Completed LIPASE Stat Lab 11/03/18 20:44 Completed Lactic Acid Stat Lab 11/03/18 20:37 Completed Mccormick Screen Stat Lab 11/03/18 20:44 Completed UA W/RFX UR CULTURE Stat Lab 11/03/18 20:34 Completed Peak Expiratory Flow Rate DAILY RT 11/03/18 21:55 Active Respiratory Therapy Assessment DAILY RT 11/03/18 21:56 Active Medication Summary Discontinued Medications Generic Name Dose Route Start Last Admin Trade Name Freq PRN Reason Stop Dose Admin Hydrocodone Bitart/Acetaminophen 10 ml 11/03/18 20:28 11/03/18 20:42 Hydrocodone-Acetamin 2.5-108/5 Ml Solution PO 11/03/18 20:29 10 ml STAT STA Administration Hydrocodone Bitart/Acetaminophen Confirm 11/03/18 20:38 Hydrocodone-Acetamin 2.5-108/5 Ml Solution Administered 11/03/18 20:39 Dose 10 ml .ROUTE .STK-MED ONE Albuterol/Ipratropium 3 ml 11/03/18 21:50 11/03/18 21:53 Duoneb 0.5-3 Mg/3 Ml Neb IH 11/03/18 21:51 3 ml STAT ONE Administration Albuterol/Ipratropium Confirm 11/03/18 21:52 Duoneb 0.5-3 Mg/3 Ml Neb Administered 11/03/18 21:53 Dose 3 ml IH .STK-MED ONE Famotidine 40 mg 11/03/18 20:01 11/03/18 20:43 Pepcid 20 Mg Vial IV 11/03/18 20:02 40 mg STAT ONE Administration Famotidine Confirm 11/03/18 20:38 Pepcid 20 Mg Vial Administered 11/03/18 20:39 Dose 40 mg IV .STK-MED ONE Sodium Chloride 1,000 mls @ 999 mls/hr 11/03/18 20:01 11/03/18 21:45 Sodium Chloride 0.9% 1000 Ml IV 11/03/18 21:01 Infused .Q1H1M STA Infusion Sodium Chloride Confirm 11/03/18 20:38 Sodium Chloride 0.9% 1000 Ml Administered 11/03/18 20:39 Dose 1,000 mls @ ud .ROUTE .STK-MED ONE Sodium Chloride 1,000 mls @ 999 mls/hr 11/03/18 21:29 11/03/18 22:38 Sodium Chloride 0.9% 1000 Ml IV 11/03/18 22:29 Infused .Q1H1M STA Infusion Sodium Chloride Confirm 11/03/18 21:34 Sodium Chloride 0.9% 1000 Ml Administered 11/03/18 21:35 Dose 1,000 mls @ ud .ROUTE .STK-MED ONE Ibuprofen 600 mg 11/03/18 20:27 11/03/18 20:42 Motrin 600 Mg PO 11/03/18 20:28 600 mg STAT ONE Administration Ibuprofen Confirm 11/03/18 20:38 Motrin 600 Mg Administered 11/03/18 20:39 Dose 600 mg .ROUTE .STK-MED ONE Ondansetron HCl 4 mg 11/03/18 20:01 11/03/18 20:43 Zofran 4 Mg/2 Ml Vial IV 11/03/18 20:02 4 mg STAT ONE Administration Ondansetron HCl Confirm 11/03/18 20:37 Zofran 4 Mg/2 Ml Vial Administered 11/03/18 20:38 Dose 4 mg .[facility]TE [facility] Oseltamivir Phosphate 75 mg 11/03/18 21:28 11/03/18 21:37 Tamiflu 75mg Capsule PO 11/03/18 21:29 75 mg STAT ONE Administration Oseltamivir Phosphate Confirm 11/03/18 21:34 Tamiflu 75mg Capsule Administered 11/03/18 21:35 Dose 75 mg PO .[employer] ONE Lab/Rad Data: Laboratory Result Diagrams 11/03/18 20:44 11/03/18 20:44 Laboratory Results 11/03/18 11/03/18 11/03/18 Range/Units 20:44 20:44 20:44 WBC (4.0-10.5) K/mm3 RBC (4.1-5.6) M/mm3 Hgb (12.5-18.0) gm/dl Hct (42-50) % MCV (78-100) fl MCH (26-32) pg MCHC (32-36) g/dl RDW (11.5-14.0) % Plt Count (150-450) K/mm3 MPV (6-9.5) fl Gran % (36.0-66.0) % Eos # (Auto) (0-0.5) Absolute Lymphs (auto) (1.0-4.6) Absolute Monos (auto) (0.0-1.3) Lymphocytes % (24.0-44.0) % Monocytes % (0.0-12.0) % Eosinophils % (0.00-5.0) % Basophils % (0.0-0.4) % Absolute Granulocytes (1.4-6.9) Basophils # (0-0.4) Sodium 137 (137-145) mmol/L Potassium 3.8 (3.5-5.1) mmol/L Chloride 99 (98-107) mmol/L Carbon Dioxide 32 H (22-30) mmol/L Anion Gap 10.2 (5-15) MEQ/L BUN 6 L (9-20) mg/dL Creatinine 0.62 L (0.66-1.25) mg/dL Estimated GFR > 60.0 ML/MIN Glucose 96 (74-106) mg/dL Lactic Acid (0.4-2.0) Calcium 8.1 L (8.4-10.2) mg/dL Total Bilirubin 1.10 (0.2-1.3) mg/dL AST 75 H (17-59) U/L ALT 30 (0-50) U/L Alkaline Phosphatase 98 (38-126) U/L Serum Total Protein 7.1 (6.3-8.2) g/dL Albumin 3.3 L (3.5-5.0) g/dL Amylase 72 (30-110) U/L Lipase 108 (23-300) U/L Urine Color (YELLOW) Urine Appearance (CLEAR) Urine pH (5-6) Ur Specific Monarch (1.005-1.025) Urine Protein (Negative) Urine Ketones (NEGATIVE) Urine Blood (0-5) Christopher/ul Urine Nitrite (NEGATIVE) Urine Bilirubin (NEGATIVE) Urine Urobilinogen (0-1) mg/dL Ur Leukocyte Esterase (NEGATIVE) Urine WBC (Auto) (0-5) /HPF Urine RBC (Auto) (0-2) /HPF U Epithel Cells (Auto) (FEW) /HPF Urine Mucus (Auto) (NEGATIVE) /HPF Urine Culture Reflexed (NO) Urine Glucose (NEGATIVE) mg/dL Monoscreen POSITIVE (Negative) Influenza Type A Ag POSITIVE (NEGATIVE) Influenza Type B Ag NEGATIVE (NEGATIVE) RSV (PCR) NEGATIVE (Negative) Group A Strep Antibody NEGATIVE (NEGATIVE) Slides for Path Review 11/03/18 11/03/18 11/03/18 Range/Units 20:44 20:37 20:34 WBC 4.2 (4.0-10.5) K/mm3 RBC 4.33 (4.1-5.6) M/mm3 Hgb 13.1 (12.5-18.0) gm/dl Hct 40.5 L (42-50) % MCV 93.5 (78-100) fl MCH 30.3 (26-32) pg MCHC 32.3 (32-36) g/dl RDW 17.2 H (11.5-14.0) % Plt Count 36 L (150-450) K/mm3 MPV 11.3 H (6-9.5) fl Gran % 63.4 (36.0-66.0) % Eos # (Auto) 0.02 (0-0.5) Absolute Lymphs (auto) 0.92 L (1.0-4.6) Absolute Monos (auto) 0.60 (0.0-1.3) Lymphocytes % 21.7 L (24.0-44.0) % Monocytes % 14.2 H (0.0-12.0) % Eosinophils % 0.5 (0.00-5.0) % Basophils % 0.2 (0.0-0.4) % Absolute Granulocytes 2.68 (1.4-6.9) Basophils # 0.01 (0-0.4) Sodium (137-145) mmol/L Potassium (3.5-5.1) mmol/L Chloride (98-107) mmol/L Carbon Dioxide (22-30) mmol/L Anion Gap (5-15) MEQ/L BUN (9-20) mg/dL Creatinine (0.66-1.25) mg/dL Estimated GFR ML/MIN Glucose (74-106) mg/dL Lactic Acid 1.6 (0.4-2.0) Calcium (8.4-10.2) mg/dL Total Bilirubin (0.2-1.3) mg/dL AST (17-59) U/L ALT (0-50) U/L Alkaline Phosphatase (38-126) U/L Serum Total Protein (6.3-8.2) g/dL Albumin (3.5-5.0) g/dL Amylase (30-110) U/L Lipase (23-300) U/L Urine Color YELLOW (YELLOW) Urine Appearance CLEAR (CLEAR) Urine pH 7.0 (5-6) Ur Specific Monarch 1.008 (1.005-1.025) Urine Protein NEGATIVE (Negative) Urine Ketones NEGATIVE (NEGATIVE) Urine Blood NEGATIVE (0-5) Christopher/ul Urine Nitrite NEGATIVE (NEGATIVE) Urine Bilirubin NEGATIVE (NEGATIVE) Urine Urobilinogen 4 (0-1) mg/dL Ur Leukocyte Esterase NEGATIVE (NEGATIVE) Urine WBC (Auto) NONE (0-5) /HPF Urine RBC (Auto) NONE (0-2) /HPF U Epithel Cells (Auto) NONE (FEW) /HPF Urine Mucus (Auto) SLIGHT (NEGATIVE) /HPF Urine Culture Reflexed NO (NO) Urine Glucose NEGATIVE (NEGATIVE) mg/dL Monoscreen (Negative) Influenza Type A Ag (NEGATIVE) Influenza Type B Ag (NEGATIVE) RSV (PCR) (Negative) Group A Strep Antibody (NEGATIVE) Slides for Path Review YES - Progress Progress: improved, re-examined Progress Note: 11/03/18 23:07 cxr-increased bilat bronchial markings. cardiomegaly. Counseled pt/family regarding: lab results, diagnosis, need for follow-up, rad results - Departure Time of Disposition: 23:08 Departure Disposition: Home, Observation Clinical Impression: Influenza A H1N1 infection, Mononucleosis, Vomiting Condition: Stable Critical Care Time: No Referrals: KETAN ECHEVARRIA [Primary Care Provider] -
[2018-11-03] MEDS ORDERED: MOTRIN 600 MG PO ONE (20:27)
[2018-11-03] MEDS ORDERED: HYDROCODONE-ACETAMIN 2.5-108/5 ML SOLUTION PO STA (20:28)
[2018-11-03 20:35] LABS: BASOPHIL % 0.2 % (0.0-0.4); Basophil (Absolute #) 0.01 (0-0.4); Eosinophil % 0.5 % (0.00-5.0); Eosinophil (Absolute #) 0.02 (0-0.5); Granulocyte Absolute (ANC) 2.68 (1.4-6.9); Granulocytes % 63.4 % (36.0-66.0); Hematocrit 40.5 % (42-50); Hemoglobin 13.1 gm/dl (12.5-18.0); Lymphocyte (Absolute #) 0.92 (1.0-4.6); Lymphocytes % 21.7 % (24.0-44.0); Mean Cell Volume 93.5 fl (78-100); Mean Corpuscular Hemoglobin 30.3 pg (26-32); Mean Corpuscular Hgb Concent. 32.3 g/dl (32-36); Mean Platelet Volume 11.3 fl (6-9.5); Monocytes % 14.2 % (0.0-12.0); Platelet Count 36 K/mm3 (150-450); Red Blood Count 4.33 M/mm3 (4.1-5.6); Red Cell Distribution Width 17.2 % (11.5-14.0); White Blood Count 4.2 K/mm3 (4.0-10.5)
[2018-11-03] MEDS ORDERED: Zofran 4 MG/2 ML VIAL ONE (20:37)
[2018-11-03] MEDS ORDERED: HYDROCODONE-ACETAMIN 2.5-108/5 ML SOLUTION ONE (20:38)
[2018-11-03] MEDS ORDERED: Sodium Chloride 0.9% 1000 ML 1,000 ML ONE ×2 (20:38→21:34)
[2018-11-03] MEDS ORDERED: MOTRIN 600 MG ONE (20:38)
[2018-11-03 20:58] LABS: Appearance CLEAR (CLEAR); Bilirubin NEGATIVE (NEGATIVE); Blood NEGATIVE Ery/ul (0-5); Glucose NEGATIVE (NEGATIVE); Ketones NEGATIVE (NEGATIVE); Leukocyte Esterase NEGATIVE (NEGATIVE); Mucus SLIGHT /HPF (NEGATIVE); Nitrite NEGATIVE (NEGATIVE); Protein,Urine Dip NEGATIVE (Negative); Specific Gravity 1.008 (1.005-1.025); Urobilinogen 4 mg/dL (0-1)
[2018-11-03 21:03] LABS: ALBUMIN 3.3 g/dL (3.5-5.0); ALKALINE PHOSPHATASE 98 U/L (38-126); AMYLASE 72 U/L (30-110); ANION GAP 10.2 MEQ/L (5-15); BLOOD UREA NITROGEN 6 mg/dL (9-20); CHLORIDE 99 mmol/L (98-107); Calcium 8.1 mg/dL (8.4-10.2); Carbon Dioxide 32 mmol/L (22-30); Creatinine 1 0.62 mg/dL (0.66-1.25); Glucose 96 mg/dL (74-106); LIPASE 108 U/L (23-300); Potassium 3.8 mmol/L (3.5-5.1); SGOT/AST 75 U/L (17-59); SGPT/ALT 30 U/L (0-50); SODIUM 137 mmol/L (137-145); Total Protein 7.1 g/dL (6.3-8.2)
[2018-11-03 21:25] LABS: Group A Strep NEGATIVE (NEGATIVE); INFLUENZA B NEGATIVE (NEGATIVE); RESPIRATORY SYNCTIAL VIRUS NEGATIVE (Negative)
[2018-11-03 21:26] LABS: INFLUENZA A POSITIVE (NEGATIVE)
[2018-11-03] MEDS ORDERED: Tamiflu 75MG Capsule PO ONE ×2 (21:28→21:34)
[2018-11-03] MEDS ORDERED: DUONEB 0.5-3 MG/3 ml Neb IH ONE ×2 (21:50→21:52)
[2018-11-03 22:40] LABS: Slide Review 1 YES
[2018-11-03] MEDS ORDERED: TYLENOL 325 MG PO PRN (23:23)
[2018-11-03] MEDS ORDERED: Zofran 4 MG/2 ML VIAL IV PRN (23:23)
[2018-11-03] MEDS: Sodium Chloride 0.9% 1000 ML 1,000 ML IV SCH (23:31)
[2018-11-04] MEDS ORDERED: DUONEB 0.5-3 MG/3 ml Neb IH PRN (00:39)
[2018-11-04 05:58] LABS: BASOPHIL % 0.3 % (0.0-0.4); Basophil (Absolute #) 0.01 (0-0.4); Eosinophil % 1.3 % (0.00-5.0); Eosinophil (Absolute #) 0.04 (0-0.5); Granulocyte Absolute (ANC) 1.51 (1.4-6.9); Granulocytes % 50.8 % (36.0-66.0); Hematocrit 38.8 % (42-50); Hemoglobin 12.4 gm/dl (12.5-18.0); Lymphocyte (Absolute #) 0.91 (1.0-4.6); Lymphocytes % 30.5 % (24.0-44.0); Mean Cell Volume 94.2 fl (78-100); Mean Platelet Volume 11.9 fl (6-9.5); Monocyte (Absolute #) 0.51 (0.0-1.3); Monocytes % 17.1 % (0.0-12.0); Platelet Count 33 K/mm3 (150-450); Red Blood Count 4.12 M/mm3 (4.1-5.6); Red Cell Distribution Width 17.1 % (11.5-14.0)
[2018-11-04 06:14] LABS: ALBUMIN 2.9 g/dL (3.5-5.0); ALKALINE PHOSPHATASE 91 U/L (38-126); ANION GAP 8.5 MEQ/L (5-15); BLOOD UREA NITROGEN 5 mg/dL (9-20); CHLORIDE 104 mmol/L (98-107); Calcium 7.7 mg/dL (8.4-10.2); Carbon Dioxide 30 mmol/L (22-30); Creatinine 1 0.63 mg/dL (0.66-1.25); Glucose 97 mg/dL (74-106); Potassium 3.7 mmol/L (3.5-5.1); SGOT/AST 69 U/L (17-59); SGPT/ALT 29 U/L (0-50); SODIUM 138 mmol/L (137-145); Total Protein 6.7 g/dL (6.3-8.2)
[2018-11-04] MEDS ORDERED: ZOFRAN ODT 4 MG PO PRN (09:12)
[2018-11-04] MEDS ORDERED: LACTULOSE PO PRN (09:12)
[2018-11-04] MEDS ORDERED: NON-FORMULARY ITEM (Prochlorperazine Maleate 10 Mg [Compazine 10 Mg] 10 MG) PO PRN (09:12)
[2018-11-04] MEDS ORDERED: PHENERGAN 25 MG PO PRN (09:12)
--- NOTE | 2018-11-04 09:13 | XRAY ---
Indication: Fever and cough. Comparison: December 27, 2016. Portable chest demonstrates new bilateral interstitial alveolar opacities without consolidation/large effusion. Heart is not enlarged for AP portable technique. Bony thorax intact.
[2018-11-04] MEDS ORDERED: LACTULOSE 20 GM/30ML UD CUP PO PRN (09:19)
[2018-11-04] MEDS ORDERED: Compazine 5 MG PO PRN (09:21)
[2018-11-04] MEDS ORDERED: ZINC SULFATE 220 MG PO SCH (10:00)
[2018-11-04] MEDS ORDERED: NON-FORMULARY ITEM (Propranolol Hcl [Propranolol Hcl] 40 MG) PO SCH (10:00)
[2018-11-04] MEDS: solu-MEDROL 125 MG IV SCH ×2 (10:00→16:48)
[2018-11-04] MEDS: Xifaxan 200 MG PO SCH ×2 (10:01→21:25)
[2018-11-04] MEDS: BUMEX 1 MG PO SCH ×2 (10:02→16:47)
[2018-11-04] MEDS: Inderal 20 MG PO SCH (10:02)
--- NOTE | 2018-11-04 10:02 | HP ---
CHIEF COMPLAINT: Vomiting, diarrhea, weakness. HISTORY OF PRESENT ILLNESS: The patient is a 48 year-old white male patient who reports that over the past week he has been having problems with nausea and vomiting. He reports he had gotten somewhat better and thought he had it whooped until yesterday when he began having fever again and felt bad enough to present to the emergency room. PAST MEDICAL/SURGICAL HISTORY: Nonalcoholic fatty liver disease. He has low platelets routinely in the 30,000 range. He has history of asthma as well and he is currently actively wheezing as well. MEDICATIONS: His home medications are Tenormin 50 mg a day, Bumex 1 mg b.i.d., Synthroid 100 mcg daily, Zestril 10 mg a day, omeprazole 20 mg a day, Trileptal 300 mg b.i.d., Ditropan 5 mg b.i.d., potassium 20 mEq 2 tablets b.i.d., promethazine 25 mg PRN for nausea, Seroquel 75 mg at night, rifaximin 550 mg b.i.d., Zanaflex 4 mg a day, cephalexin 500 mg four times a day, lactulose 10 mg four times a day, MiraLAX. ALLERGIES: NITROFURANTOIN. PHYSICAL EXAMINATION: Vital signs on admission showed temperature 101.7F, pulse 58, respiratory rate 20, blood pressure 176/90. O2 saturation 95% on room air. HEENT: Normocephalic, atraumatic. Pupils equal round reactive to light. Oropharynx is pink and moist. NECK: Supple without lymphadenopathy, thyromegaly or JVD. CHEST: Reveals bilateral wheezes throughout expiration. HEART: Currently regular rate and rhythm. ABDOMEN: No palpable masses were felt. EXTREMITIES: Without significant cyanosis, clubbing or edema. NEUROLOGIC: The patient is alert and oriented x3. LAB DATA AND TESTS: His laboratory data has shown him to be positive for mononucleosis with 17.1% monocytes. He is somewhat pancytopenic which a white count of 3,000 and hemoglobin 12.4. The patient was also swabbed for flu and being found to be positive influenza A as well. The patient's metabolic panel showed glucose 97, BUN 5, creatinine 0.63. Electrolytes were normal. Liver enzymes were slightly elevated at 69 on AST, bilirubin was 1.5. ASSESSMENT: The patient has been admitted to the hospital due to the recent fever that he has developed even though he has been for a week. We offered to treat him with Tamiflu 75 mg b.i.d. for the positive influenza A due to his wheezing bilaterally and mononucleosis. We decided to treat him with Solu-Medrol 80 mg every 8 hours to help him. He will also receive nebulizer treatments as well. He is receiving IV fluids for rehydration. He will be kept on his usual home medications.
[2018-11-04] MEDS: Oxycontin 10 MG ER PO SCH ×2 (10:03→21:25)
[2018-11-04] MEDS: Tamiflu 75MG Capsule PO SCH ×2 (10:03→21:25)
[2018-11-04] MEDS: SYNTHROID 100 MCG PO SCH (10:03)
[2018-11-04] MEDS: Neurontin 400 MG PO SCH ×2 (10:03→21:25)
[2018-11-04] MEDS: Pepcid 20 MG PO SCH ×2 (10:03→21:25)
[2018-11-04] MEDS: MAG-OX 400 PO SCH (10:03)
[2018-11-04] MEDS: Zinc Gluconate 50 MG PO SCH ×2 (10:03→21:33)
[2018-11-04] MEDS: DUONEB 0.5-3 MG/3 ml Neb IH SCH ×4 (11:21→23:27)
[2018-11-04] MEDS: HYDROCODONE-ACETAMIN 2.5-108/5 ML SOLUTION PO PRN ×2 (13:54→21:26)
[2018-11-04] MEDS: Sodium Chloride 0.9% 1000 ML 1,000 ML IV SCH (16:48)
[2018-11-04] MEDS: Seroquel 25 MG PO SCH (21:24)
[2018-11-04] MEDS: DESYREL 50 MG PO SCH (21:24)
[2018-11-05] MEDS: solu-MEDROL 125 MG IV SCH ×3 (00:12→17:32)
[2018-11-05] MEDS: DUONEB 0.5-3 MG/3 ml Neb IH SCH ×6 (03:44→22:45)
[2018-11-05 05:39] LABS: Basophil (Absolute #) 0 (0-0.4); Eosinophil (Absolute #) 0 (0-0.5); Granulocytes % 80.3 % (36.0-66.0); Hematocrit 43.1 % (42-50); Lymphocyte (Absolute #) 0.51 (1.0-4.6); Lymphocytes % 12.4 % (24.0-44.0); Mean Cell Volume 92.7 fl (78-100); Mean Corpuscular Hemoglobin 30.1 pg (26-32); Mean Corpuscular Hgb Concent. 32.5 g/dl (32-36); Mean Platelet Volume 10.8 fl (6-9.5); Monocytes % 7.3 % (0.0-12.0); Platelet Count 50 K/mm3 (150-450); Red Blood Count 4.65 M/mm3 (4.1-5.6); Red Cell Distribution Width 16.5 % (11.5-14.0); White Blood Count 4.1 K/mm3 (4.0-10.5)
[2018-11-05 05:59] LABS: ALBUMIN 3.5 g/dL (3.5-5.0); ALKALINE PHOSPHATASE 112 U/L (38-126); ANION GAP 12.1 MEQ/L (5-15); BLOOD UREA NITROGEN 6 mg/dL (9-20); CHLORIDE 100 mmol/L (98-107); Calcium 8.2 mg/dL (8.4-10.2); Carbon Dioxide 32 mmol/L (22-30); Creatinine 1 0.58 mg/dL (0.66-1.25); Glucose 148 mg/dL (74-106); Potassium 3.7 mmol/L (3.5-5.1); SGOT/AST 54 U/L (17-59); SGPT/ALT 32 U/L (0-50); SODIUM 141 mmol/L (137-145); Total Protein 7.7 g/dL (6.3-8.2)
[2018-11-05 09:06] LABS: Slide Review 1 YES
[2018-11-05] MEDS: Neurontin 400 MG PO SCH ×2 (09:27→21:52)
[2018-11-05] MEDS: Tamiflu 75MG Capsule PO SCH ×2 (09:27→21:52)
[2018-11-05] MEDS: Oxycontin 10 MG ER PO SCH ×2 (09:27→21:51)
[2018-11-05] MEDS: Inderal 20 MG PO SCH (09:27)
[2018-11-05] MEDS: MAG-OX 400 PO SCH (09:27)
[2018-11-05] MEDS: BUMEX 1 MG PO SCH ×3 (09:28→17:43)
[2018-11-05] MEDS: SYNTHROID 100 MCG PO SCH (09:28)
[2018-11-05] MEDS: Pepcid 20 MG PO SCH ×2 (09:28→21:52)
[2018-11-05] MEDS: Xifaxan 200 MG PO SCH ×2 (09:28→21:52)
[2018-11-05] MEDS: Zinc Gluconate 50 MG PO SCH ×2 (09:29→21:54)
--- NOTE | 2018-11-05 11:04 | PCM.NOTE ---
Date and Time: 11/05/18 1059 Subjective Assessment: Patient reports he does not wear oxygen at home. He states they tried to wean it yesterday but he needed it during the night. He reports he did not sleep well .He has some mild right abdominal pain which he attributes to his liver problems. - Review of Systems Constitutional: Fatigue Eyes: No Symptoms Ears, Nose, & Throat: No Symptoms Respiratory: Short Of Breath Cardiac: No Symptoms Abdominal/Gastrointestinal: Abdominal Pain, No Nausea, No Vomiting, No Diarrhea Genitourinary Symptoms: No Symptoms Musculoskeletal: No Symptoms Skin: Other (chronic discoloration of lower extremities) Objective Exam General Appearance: no apparent distress, alert, other (on oxygen by NC) Neurologic Exam: alert, cooperative Skin Exam: normal color, warm, dry, other (dark colored skin from just below knees to entire feet bilat) Respiratory Exam: normal breath sounds, lungs clear, No accessory muscle use, No crackles/rales, No rhonchi Cardiovascular Exam: regular rate/rhythm, normal heart sounds, No murmur, No friction rub, No gallop Gastrointestinal/Abdomen Exam: soft, normal bowel sounds, tenderness, No distention, No mass, No guarding Extremity Exam: normal inspection, other (no c/c/e) OBJECTIVE DATA Vital Signs: Vital Signs - 24 hr Temp Pulse Resp BP Pulse Ox 11/05/18 08:00 98.6 F 60 24 145/74 92 L 11/05/18 07:44 67 18 97 11/05/18 04:53 66 20 91 L 11/05/18 04:00 98.6 F 60 20 151/72 93 L 11/05/18 00:00 99.0 F 69 20 159/72 92 L 11/04/18 23:30 86 20 92 L 11/04/18 21:05 95 11/04/18 20:00 98.7 F 58 L 20 155/78 95 11/04/18 19:50 58 L 20 95 11/04/18 16:12 98.7 F 58 L 20 140/68 96 11/04/18 15:10 56 L 18 96 11/04/18 12:14 98.5 F 52 L 20 142/78 94 L 11/04/18 11:22 54 L 20 95 Oxygen-Last 24 hours O2 Percentage 3 Liters = 32% Pain Assessment - Last Documented Pain Intensity 0 Pain Scale Used 0-10 Pain Scale Intake and Output: Intake & Output 11/03/18 11/04/18 11/05/18 11/06/18 06:59 06:59 06:59 07:59 Intake Total 1171 3825 Output Total 2250 1715 500 Balance -1079 450 -500 Weight 157.9 kg 153 kg Lab Results: Lab Results-Last 24 Hours 11/05/18 11/05/18 Range/Units 05:34 05:34 WBC 4.1 (4.0-10.5) K/mm3 RBC 4.65 (4.1-5.6) M/mm3 Hgb 14.0 (12.5-18.0) gm/dl Hct 43.1 (42-50) % MCV 92.7 (78-100) fl MCH 30.1 (26-32) pg MCHC 32.5 (32-36) g/dl RDW 16.5 H (11.5-14.0) % Plt Count 50 L D (150-450) K/mm3 MPV 10.8 H (6-9.5) fl Gran % 80.3 H (36.0-66.0) % Eos # (Auto) 0 (0-0.5) Absolute Lymphs (auto) 0.51 L (1.0-4.6) Absolute Monos (auto) 0.30 (0.0-1.3) Lymphocytes % 12.4 L (24.0-44.0) % Monocytes % 7.3 (0.0-12.0) % Eosinophils % 0.0 (0.00-5.0) % Basophils % 0.0 (0.0-0.4) % Absolute Granulocytes 3.30 (1.4-6.9) Basophils # 0 (0-0.4) Sodium 141 (137-145) mmol/L Potassium 3.7 (3.5-5.1) mmol/L Chloride 100 (98-107) mmol/L Carbon Dioxide 32 H (22-30) mmol/L Anion Gap 12.1 (5-15) MEQ/L BUN 6 L (9-20) mg/dL Creatinine 0.58 L (0.66-1.25) mg/dL Estimated GFR > 60.0 ML/MIN Glucose 148 H (74-106) mg/dL Calcium 8.2 L (8.4-10.2) mg/dL Total Bilirubin 1.30 (0.2-1.3) mg/dL AST 54 (17-59) U/L ALT 32 (0-50) U/L Alkaline Phosphatase 112 (38-126) U/L Serum Total Protein 7.7 (6.3-8.2) g/dL Albumin 3.5 (3.5-5.0) g/dL Slides for Path Review YES Radiology Exams: Radiology Procedures Category Date Time Status CHEST 1 VIEW (PORTABLE) Stat Exams 11/03/18 20:02 Completed Assessment/Plan (1) Influenza A H1N1 infection Current Visit: Yes Status: Acute Assessment & Plan: Continue [place] and symptomatic treatment; wean oxygen if tolerated. Pt reports he did have a flu immunization this flu season. Code(s): J10.1 - FLU DUE TO OTH IDENT INFLUENZA VIRUS W OTH RESP MANIFEST (2) Mononucleosis Current Visit: Yes Status: Acute Assessment & Plan: Continue symptomatic treatment. Code(s): B27.90 - INFECTIOUS MONONUCLEOSIS, UNSPECIFIED WITHOUT COMPLICATION (3) Cirrhosis Current Visit: No Status: Chronic Assessment & Plan: Continue home medications. (4) Thrombocytopenia Current Visit: Yes Status: Acute Assessment & Plan: Due to liver disease; improved today.
[2018-11-05] MEDS: HYDROCODONE-ACETAMIN 2.5-108/5 ML SOLUTION PO PRN ×2 (15:38→21:54)
[2018-11-05] MEDS: Sodium Chloride 0.9% 1000 ML 1,000 ML IV SCH (17:41)
[2018-11-05] MEDS: Seroquel 25 MG PO SCH (21:51)
[2018-11-05] MEDS: DESYREL 50 MG PO SCH (21:52)
[2018-11-06] MEDS ORDERED: ENOXAPARIN SODIUM ONE (00:24)
[2018-11-06] MEDS: solu-MEDROL 125 MG IV SCH ×3 (00:47→17:08)
[2018-11-06] MEDS ORDERED: ENOXAPARIN SODIUM SQ SCH (01:00)
[2018-11-06] MEDS: DUONEB 0.5-3 MG/3 ml Neb IH SCH ×7 (03:35→23:30)
[2018-11-06] MEDS: Inderal 20 MG PO SCH (10:09)
[2018-11-06] MEDS: Neurontin 400 MG PO SCH ×2 (10:09→21:13)
[2018-11-06] MEDS: SYNTHROID 100 MCG PO SCH (10:09)
[2018-11-06] MEDS: Tamiflu 75MG Capsule PO SCH ×2 (10:09→21:09)
[2018-11-06] MEDS: MAG-OX 400 PO SCH (10:09)
[2018-11-06] MEDS: BUMEX 1 MG PO SCH ×3 (10:09→17:15)
[2018-11-06] MEDS: Oxycontin 10 MG ER PO SCH ×2 (10:09→21:09)
[2018-11-06] MEDS: Pepcid 20 MG PO SCH ×2 (10:09→21:13)
[2018-11-06] MEDS: Xifaxan 200 MG PO SCH ×2 (10:10→21:13)
[2018-11-06] MEDS: Zinc Gluconate 50 MG PO SCH ×2 (10:10→21:13)
[2018-11-06] MEDS: HYDROCODONE-ACETAMIN 2.5-108/5 ML SOLUTION PO PRN ×2 (10:51→21:09)
--- NOTE | 2018-11-06 11:36 | PCM.NOTE ---
Date and Time: 11/06/18 1133 Subjective Assessment: Patient reports he is feeling a little bit better. He states he is thinking about quitting smoking and only smokes 2 cig per day. He states he was stressed when he asked to go outside and smoke. He declines nicotine patch. He reports continued cough and generalized weakness. - Review of Systems Constitutional: Weakness Eyes: No Symptoms Ears, Nose, & Throat: No Symptoms Respiratory: Cough Cardiac: No Symptoms Abdominal/Gastrointestinal: No Symptoms Genitourinary Symptoms: No Symptoms Musculoskeletal: No Symptoms Skin: Other (discoloration of lower extremities) Objective Exam General Appearance: no apparent distress, other (+ frequent cough) Neurologic Exam: alert, cooperative, normal mood/affect Skin Exam: normal color, warm, dry, other (lower legs with dark discoloration ( brown)) Respiratory Exam: airway intact, other (few scattered wheezes, equal breath sounds), No respiratory distress, No accessory muscle use, No crackles/rales, No rhonchi Cardiovascular Exam: regular rate/rhythm, normal heart sounds, No murmur, No friction rub, No gallop Gastrointestinal/Abdomen Exam: soft, normal bowel sounds, No tenderness, No distention, No mass OBJECTIVE DATA Vital Signs: Vital Signs - 24 hr Temp Pulse Resp BP Pulse Ox 11/06/18 11:31 64 18 94 L 11/06/18 07:37 98.1 F 58 L 18 139/76 94 L 11/06/18 07:26 68 16 94 L 11/06/18 04:32 98.2 F 65 12 140/67 92 L 11/06/18 03:45 72 22 91 L 11/06/18 00:00 97.7 F 79 12 141/61 96 11/05/18 22:49 95 11/05/18 20:00 99.2 F 60 24 148/68 94 L 11/05/18 18:59 63 20 99 11/05/18 16:00 99.1 F 63 20 158/75 94 L 11/05/18 15:36 63 20 97 11/05/18 12:00 98.4 F 56 L 20 142/68 94 L Oxygen-Last 24 hours O2 Percentage 3 Liters = 32% O2 Percentage 3 Liters = 32% Pain Assessment - Last Documented Pain Intensity 4 Pain Scale Used 0-10 Pain Scale,FLACC Intake and Output: Intake & Output 11/04/18 11/05/18 11/06/18 11/07/18 05:59 05:59 06:59 06:59 Intake Total Output Total 1400 Balance -1400 Weight Assessment/Plan (1) Influenza A H1N1 infection Current Visit: Yes Status: Acute Assessment & Plan: Continue with Tamiflu and supportive care. He is currently off of oxygen at this time. Code(s): J10.1 - FLU DUE TO OTH IDENT INFLUENZA VIRUS W OTH RESP MANIFEST (2) Mononucleosis Current Visit: Yes Status: Acute Assessment & Plan: Continue with supportive care. Code(s): B27.90 - INFECTIOUS MONONUCLEOSIS, UNSPECIFIED WITHOUT COMPLICATION (3) Cirrhosis Current Visit: No Status: Chronic Assessment & Plan: Stable at this time. Continue home medications. (4) Thrombocytopenia Current Visit: Yes Status: Acute Assessment & Plan: Stable. (5) Tobacco abuse Current Visit: Yes Status: Acute Assessment & Plan: Patient counseled that he should completely quit smoking. Code(s): Z72.0 - TOBACCO USE
[2018-11-06] MEDS: Sodium Chloride 0.9% 1000 ML 1,000 ML IV SCH (14:46)
[2018-11-06] MEDS: DESYREL 50 MG PO SCH (21:09)
[2018-11-06] MEDS: Seroquel 25 MG PO SCH (21:12)
[2018-11-07] MEDS: solu-MEDROL 125 MG IV SCH (01:09)
[2018-11-07] MEDS: DUONEB 0.5-3 MG/3 ml Neb IH SCH ×6 (03:30→23:52)
[2018-11-07 08:42] LABS: ALBUMIN 3.1 g/dL (3.5-5.0); ALKALINE PHOSPHATASE 174 U/L (38-126); ANION GAP 7.7 MEQ/L (5-15); BLOOD UREA NITROGEN 5 mg/dL (9-20); CHLORIDE 101 mmol/L (98-107); Calcium 8.4 mg/dL (8.4-10.2); Carbon Dioxide 35 mmol/L (22-30); Creatinine 1 0.47 mg/dL (0.66-1.25); Glucose 128 mg/dL (74-106); Potassium 3.7 mmol/L (3.5-5.1); SGOT/AST 95 U/L (17-59); SGPT/ALT 72 U/L (0-50); SODIUM 140 mmol/L (137-145)
--- NOTE | 2018-11-07 09:15 | XRAY ---
Indication: Follow-up infiltrates. Comparison: November 03, 2018. PA/lateral chest demonstrates mild improvement of previous bilateral interstitial alveolar opacities again without consolidation/large effusion. Heart is not enlarged. No new cardiopulmonary abnormalities.
[2018-11-07 09:18] LABS: Hematocrit 42.7 % (42-50); Mean Cell Volume 93.6 fl (78-100); Mean Corpuscular Hemoglobin 30.7 pg (26-32); Mean Corpuscular Hgb Concent. 32.8 g/dl (32-36); Mean Platelet Volume 10.3 fl (6-9.5); Platelet Count 59 K/mm3 (150-450); Red Blood Count 4.56 M/mm3 (4.1-5.6); Red Cell Distribution Width 16.6 % (11.5-14.0); White Blood Count 5.5 K/mm3 (4.0-10.5)
[2018-11-07] MEDS: Tamiflu 75MG Capsule PO SCH ×2 (09:30→22:49)
[2018-11-07] MEDS: DELTASONE 10 MG PO SCH (09:30)
[2018-11-07] MEDS: Inderal 20 MG PO SCH (09:30)
[2018-11-07] MEDS: Xifaxan 200 MG PO SCH ×2 (09:31→22:49)
[2018-11-07] MEDS: Neurontin 400 MG PO SCH ×2 (09:31→22:49)
[2018-11-07] MEDS: SYNTHROID 100 MCG PO SCH (09:31)
[2018-11-07] MEDS: MAG-OX 400 PO SCH (09:31)
[2018-11-07] MEDS: Pepcid 20 MG PO SCH ×2 (09:31→22:49)
[2018-11-07] MEDS: Oxycontin 10 MG ER PO SCH ×2 (09:31→22:48)
[2018-11-07] MEDS: Zinc Gluconate 50 MG PO SCH ×2 (09:32→22:49)
[2018-11-07] MEDS: BUMEX 1 MG PO SCH ×2 (09:40→17:01)
[2018-11-07] MEDS: HYDROCODONE-ACETAMIN 2.5-108/5 ML SOLUTION PO PRN (10:08)
[2018-11-07 10:19] LABS: ANISOCYTOSIS 1+; ATYPICAL LYMPHS 1 %; Lymphocytes 13 % (24-44); Monocyte 2 % (0.0-12.0); Neutrophils 84 % (36.-66.); Platelet Estimate DECREASED (NORMAL); Total Cells Counted 100
[2018-11-07] MEDS: Seroquel 25 MG PO SCH (22:48)
[2018-11-07] MEDS: DESYREL 50 MG PO SCH (22:49)
[2018-11-07] MEDS: Tessalon Perles 100 MG PO PRN (22:49)
[2018-11-08] MEDS: DUONEB 0.5-3 MG/3 ml Neb IH SCH ×2 (05:01→06:52)
[2018-11-08 05:04] VITALS: O2SAT 95
[2018-11-08 07:40] VITALS: BP 136/59; PULSE 55
[2018-11-08] MEDS: Neurontin 400 MG PO SCH (08:57)
[2018-11-08] MEDS: DELTASONE 10 MG PO SCH (08:57)
[2018-11-08] MEDS: Inderal 20 MG PO SCH (08:57)
[2018-11-08] MEDS: Pepcid 20 MG PO SCH (08:58)
[2018-11-08] MEDS: Tamiflu 75MG Capsule PO SCH (08:58)
[2018-11-08] MEDS: Oxycontin 10 MG ER PO SCH (08:58)
[2018-11-08] MEDS: MAG-OX 400 PO SCH (08:58)
[2018-11-08] MEDS: Zinc Gluconate 50 MG PO SCH (08:58)
[2018-11-08] MEDS: Xifaxan 200 MG PO SCH (08:58)
[2018-11-08] MEDS: SYNTHROID 100 MCG PO SCH (08:58)
[2018-11-08] MEDS: Tessalon Perles 100 MG PO PRN (09:20)
--- NOTE | 2018-11-08 12:50 | DS ---
DISCHARGE DIAGNOSES: 1) INFLUENZA. 2) MONONUCLEOSIS. 3) LIVER CIRRHOSIS FROM NONALCOHOLIC FATTY LIVER DISEASE. HOSPITAL COURSE: The patient is a 48 year-old white male patient who began having problems with nausea and vomiting. His health is precarious anyway as he is medically frail from his cirrhosis. The patient was brought into the hospital after he was found to be positive for influenza. He was given IV fluids and IV antiemetic. Being positive for influenza he was given Tamiflu 75 mg b.i.d. as well as IV fluids and IV antiemetic. The patient was slow to recover since he was also positive for mononucleosis on top of his advanced liver disease. He did slowly improve with the above treatment to feel that he was finally ready for discharge home by the morning of 11/08/2018. He was well hydrated by that time. He was afebrile with a pulse of 58, respiratory rate 16, blood pressure 129/69. O2 saturation 95% on room air. The patient's recent laboratory study showed his blood cultures to be no growth. His most recent CBC showed hemoglobin 14.0, white blood cell count 5,500, PLT count 59,000. He is chronically thrombocytopenic as well. His glucose was 128, BUN 5, creatinine 0.47. Electrolytes were normal. Liver enzymes were chronically elevated with AST of 95 and ALT 72 and alkaline phosphatase 174. The patient had a chest x-ray showing bilateral interstitial alveolar opacities without consolidation. His discharge medications were to be essentially to resume his home medications atenolol 50 mg daily, Bumex 1 mg b.i.d., Synthroid 100 mcg daily, lisinopril 10 mg daily, omeprazole 20 mg a day, Trileptal 300 mg b.i.d., Ditropan 5 mg b.i.d., potassium 20 mEq 2 tablets b.i.d., Promethazine 25 mg PRN for nausea, Seroquel 75 mg at night. rifaximin 550 b.i.d., Zanaflex 4 mg a day, lactulose 10 mg four times a day, MiraLAX PRN. He will have follow up appointment in my office in one week and he is to call if he has any further problems in the interim.
== END 2018-11-08 09:40 | disposition home or self-care (01) ==
LOC: ED 19:23 → MED SURG 23:20
PROVIDERS: ADMIT Family Medicine; ATTEND Family Medicine
DX: J10.1 Influenza due to other identified influenza virus with other respiratory manifestations (principal); B27.90 Infectious mononucleosis, unspecified without complication; K74.69 Other cirrhosis of liver; D69.6 Thrombocytopenia, unspecified; R19.7 Diarrhea, unspecified; R53.1 Weakness; R11.2 Nausea with vomiting, unspecified; Z79.899 Other long term (current) drug therapy; R10.9 Unspecified abdominal pain; F17.200 Nicotine dependence, unspecified, uncomplicated
CPT/HCPCS: 36000; 36415; 71045; 71046; 80053; 81001; 82150; 83605; 83690; 85025; 86308; 87040; 87631; 87651; 94150; 94640; 94760; 96360; 96361; 96374; 96375; 99285; G0378; J1650; J2405; J2930; A9270-GY

== ENCOUNTER 2020-04-16 05:59 | Day surgery (SDC) | payer MEDICARE ==
[2020-04-16] MEDS ORDERED: Lactated Ringers 1,000 ML IV SCH (06:30)
[2020-04-16 06:38] LABS: Hematocrit 51.3 % (42-50); Hemoglobin 16.7 gm/dl (12.5-18.0); Mean Cell Volume 93.4 fl (78-100); Mean Corpuscular Hemoglobin 30.4 pg (26-32); Mean Corpuscular Hgb Concent. 32.6 g/dl (32-36); Mean Platelet Volume 12.4 fl (7.5-11.0); Platelet Count 96 K/mm3 (150-450); Red Blood Count 5.49 M/mm3 (4.1-5.6); Red Cell Distribution Width 16.2 % (11.5-14.0); White Blood Count 11.1 K/mm3 (4.0-10.5)
[2020-04-16 06:46] LABS: INR 1.2 (0.8-3.0); PROTIME 13.6 SECONDS (8.83-12.87)
[2020-04-16 06:48] LABS: PTT 35.5 SECONDS (24.1-36.1)
[2020-04-16 06:50] LABS: ALBUMIN 4.2 g/dL (3.5-5.0); ALKALINE PHOSPHATASE 101 U/L (38-126); ANION GAP 9.4 MEQ/L (5-15); BLOOD UREA NITROGEN 7 mg/dL (9-20); CHLORIDE 105 mmol/L (98-107); Calcium 9.4 mg/dL (8.4-10.2); Carbon Dioxide 30 mmol/L (22-30); Creatinine 1 0.65 mg/dL (0.66-1.25); Glucose 64 mg/dL (74-106); Potassium 4.6 mmol/L (3.5-5.1); SGOT/AST 39 U/L (17-59); SGPT/ALT 25 U/L (0-50); SODIUM 140 mmol/L (137-145); Total Protein 8.2 g/dL (6.3-8.2)
[2020-04-16] MEDS ORDERED: D50W 50ML Vial IV ONE (07:03)
[2020-04-16] MEDS ORDERED: DIPRIVAN 200 MG/20 ML IV ONE ×3 (07:21→07:58)
[2020-04-16 08:56] VITALS: BP 145/95; PULSE 55; O2SAT 98
[2020-04-16 11:54] LABS: Slide Review YES
--- NOTE | 2020-04-16 14:23 | OP ---
SURGERY DATE/TIME: 04/16/2020 0740 PREOPERATIVE DIAGNOSES: 1) History of esophageal varices and liver cirrhosis. 2) Screening exam for colon neoplasia. POSTOPERATIVE DIAGNOSES: 1) Hiatal hernia. 2) Mild gastritis. 3) Normal colon. PROCEDURES: 1) Esophagogastroduodenoscopy. 2) Colonoscopy. SURGEON: Dr. Stern. ANESTHESIA: Medications were given by the anesthesia department. HISTORY: The patient is a 49 year old white male patient with history of cirrhosis. He previously had esophageal banding performed and concerned about follow up for this. The patient is also a candidate for liver replacement and needs screening colonoscopy prior to this procedure. The patient was appraised of the risks of the procedure including the risk of perforation, phlebitis, untoward reaction to medication, bleeding and missed lesions. The patient verbalized his understanding and desired to have the procedure performed. DESCRIPTION OF PROCEDURE: The patient was given the medications by the anesthesia department. He had continuous pulse oximetry, ECG monitoring, intermittent blood pressure monitoring and tidal CO2 monitoring during the examination. He was placed in the left lateral decubitus position. A bite block was placed and the flexible Olympus gastroscope was used to intubate the oropharynx. A view of the larynx was obtained and was normal. The scope was easily introduced in the esophagus which appeared to be normal without any significant esophageal varices. The stomach was entered where normal gastric rugal folds were seen and these distended nicely with insufflation of air. The scope was passed along the greater curvature of the stomach which appeared to be mildly erythematous but no erosions or ulcerations were noted. The pylorus encountered and intubated. The duodenum inspected and found to be normal. The scope is withdrawn towards the stomach. Again, a retroflex view was obtained of the lesser curvature, fundus and cardia regions of the stomach and there appeared to be the present of hiatal hernia but otherwise no significant pathology. The scope was then removed from the patient. Next, a digital rectal examination was performed and revealed normal anal sphincter tone, no masses and normal prostate. The flexible Olympus pediatric colonoscope was used to intubate the rectum. A view of the colon was developed sequentially to the cecum. Upon insertion and withdrawal including retroflex view in the rectum, no mucosal lesions were encountered. The scope was removed from the patient who tolerated the procedure well and was sent back to OP recovery in good condition. The prep was noted to be fair throughout the colon.
== END 2020-04-16 09:05 | disposition home or self-care (01) ==
LOC: SDC 05:59
PROVIDERS: ATTEND Family Medicine
DX: Z12.11 Encounter for screening for malignant neoplasm of colon (principal); K44.9 Diaphragmatic hernia without obstruction or gangrene; K29.70 Gastritis, unspecified, without bleeding; E11.9 Type 2 diabetes mellitus without complications; I10 Essential (primary) hypertension; E03.9 Hypothyroidism, unspecified; I25.10 Atherosclerotic heart disease of native coronary artery without angina pectoris; Z87.19 Personal history of other diseases of the digestive system; Z79.899 Other long term (current) drug therapy
CPT/HCPCS: 36415; 80053; 82962; 85027; 85610; 85730; J2704

== ENCOUNTER 2020-06-03 09:22 | Emergency (ER) | payer MEDICARE ==
--- NOTE | 2020-06-03 09:54 | ERPHSYRPT ---
- History of Present Illness Time Seen by Provider: 06/03/20 09:40 Historian: patient Exam Limitations: no limitations Patient Subjective Stated Complaint: Pt states "I am having horrible pain this morning. I usually have a continuous ache, I have end stage fatty liver. I go to [facility]. The pain is horrible today." Triage Nursing Assessment: Pt presented alert and oriented X 3, skin pwd pt ambulates with an upright steady gait, able to speak in clear ufll sentences pt in no apparent respiratory distress. Physician History: This is a 49-year-old obese white male who has "liver disease" described as stage IV fatty liver and presents with sudden onset of right upper quadrant abdominal pain that is lasted for 2 hours. Patient is joking and laughing. Patient states he has intermittent dull aches in his right upper quadrant but today the pain is more sharp and is lasted for 2 hours rather than short-lived. He has had no vomiting no diarrhea but he has had some nausea. He has no chest pain he has no shortness of breath. Activities at Onset: none Quality: sharpness, stabbing Abdominal Pain Onset Location: RUQ Pain Radiation: no radiation Severity of Pain-Max: moderate Severity of Pain-Current: moderate Modifying Factors: Improves With: nothing Associated Symptoms: nausea Previous symptoms: same symptoms as today (Same location however today the pain is sharp instead of dull and the pain has persisted instead of brief), recently seen Allergies/Adverse Reactions: nitrofurantoin [From Macrobid] Allergy (Verified 04/16/20 06:16) Home Medications: Albuterol Common Canister [Ventolin Common Canister] 2 puffs IH Q4HPRN PRN 11/04/18 [History] Bumetanide 2 mg PO BID 11/04/18 [History] Lactulose 15 ml PO QID PRN PRN 11/04/18 [History] Levothyroxine Sodium 200 mcg PO DAILY 11/04/18 [History] Propranolol HCl 40 mg PO DAILY 11/04/18 [History] Rifaximin [Xifaxan] 550 mg PO BID 11/04/18 [History] Diphenhydramine HCl [Benadryl Allergy] 50 mg PO HS PRN PRN 04/11/20 [History] Potassium Chloride [Klor-Con 8] 8 meq PO UD 04/11/20 [History] Hx Tetanus, Diphtheria Vaccination/Date Given: No Hx Influenza Vaccination/Date Given: No Hx Pneumococcal Vaccination/Date Given: No Immunizations Up to Date: Yes Travel Risk - International Travel Have you traveled outside of the country in past 3 weeks: No - Coronavirus Screening Are you exhibiting any of the following symptoms?: No Close contact with a COVID-19 positive Pt in past 14-21 Days: No - Review of Systems Constitutional: No Symptoms Eyes: No Symptoms Ears, Nose, & Throat: No Symptoms Respiratory: No Symptoms Cardiac: No Symptoms Abdominal/Gastrointestinal: Abdominal Pain (Right upper quadrant), Nausea, No Vomiting, No Diarrhea, No Constipation Genitourinary Symptoms: No Symptoms Musculoskeletal: No Symptoms Skin: No Symptoms Neurological: No Symptoms Psychological: No Symptoms Endocrine: No Symptoms Hematologic/Lymphatic: No Symptoms Immunological/Allergic: No Symptoms All Other Systems: Reviewed and Negative - Past Medical History Pertinent Past Medical History: Yes Neurological History: No Pertinent History ENT History: No Pertinent History Cardiac History: Coronary Artery Disease, Hypertension Respiratory History: No Pertinent History Endocrine Medical History: Hypothyroidism Musculoskeletal History: Osteoarthritis GI Medical History: Hepatitis, Cirrhosis History: No Pertinent History Psycho-Social History: No Pertinent History Male Reproductive Disorders: No Pertinent History Other Medical History: frequent cellulitis in lower ext - Past Surgical History Past Surgical History: Yes Neuro Surgical History: No Pertinent History Cardiac: No Pertinent History Respiratory: No Pertinent History Gastrointestinal: Cholecystectomy Genitourinary: No Pertinent History Musculoskeletal: Orthopedic Surgery Male Surgical History: No Pertinent History Other Surgical History: rt knee, - Social History Smoking Status: Current every day smoker How long have you smoked: years Exposure to second hand smoke: Yes Drug Use: none Patient Lives Alone: No - Nursing Vital Signs Nursing Vital Signs: Initial Vital Signs Temperature 98.2 F 06/03/20 09:26 Pulse Rate 64 06/03/20 09:26 Respiratory Rate 22 06/03/20 09:26 Blood Pressure 127/76 06/03/20 09:26 O2 Sat by Pulse Oximetry 96 06/03/20 09:26 Pain Scale Pain Intensity 10 - Physical Exam General Appearance: no apparent distress Eye Exam: PERRL/EOMI, eyes nml inspection Ears, Nose, Throat Exam: normal ENT inspection, moist mucous membranes Neck Exam: normal inspection, non-tender, supple, full range of motion Respiratory Exam: normal breath sounds, lungs clear, airway intact, No chest tenderness, No respiratory distress Cardiovascular Exam: regular rate/rhythm, normal heart sounds, normal peripheral pulses Gastrointestinal/Abdomen Exam: soft, normal bowel sounds, tenderness (Right upper quadrant), No guarding Rectal Exam: not done Back Exam: normal inspection, normal range of motion, No CVA tenderness, No vertebral tenderness Extremity Exam: normal inspection, normal range of motion, pelvis stable Neurologic Exam: alert, oriented x 3, cooperative, etl application developer II-XII nml as tested, normal mood/affect, nml cerebellar function, nml station & gait, sensation nml Skin Exam: normal color, warm, dry Lymphatic Exam: No adenopathy SpO2 Interpretation: normal SpO2: 96 Ordered Tests: Active Orders 24 hr Category Date Time Status IV Insertion STAT Care 06/03/20 09:55 Active ABDOMEN AND PELVIS W/0 CONTRAS [CT] Stat Exams 06/03/20 09:57 Completed AMYLASE Stat Lab 06/03/20 09:36 Completed CBC W DIFF Stat Lab 06/03/20 09:36 Completed CMP Stat Lab 06/03/20 09:36 Completed LIPASE Stat Lab 06/03/20 09:36 Completed Lactic Acid Stat Lab 06/03/20 10:06 Completed UA W/RFX UR CULTURE Stat Lab 06/03/20 09:56 Uncollected Medication Summary Discontinued Medications Generic Name Dose Route Start Last Admin Trade Name Freq PRN Reason Stop Dose Admin Hydromorphone HCl 1 mg 06/03/20 09:55 06/03/20 10:07 Hydromorphone 1 Mg/Ml Injection IV 06/03/20 09:56 1 mg STAT ONE Administration Hydromorphone HCl Confirm 06/03/20 10:05 Hydromorphone 1 Mg/Ml Injection Administered 06/03/20 10:06 Dose 1 mg .ROUTE .STK-MED ONE Sodium Chloride 1,000 mls @ 999 mls/hr 06/03/20 09:55 06/03/20 10:07 Sodium Chloride 0.9% 1000 Ml IV 06/03/20 10:55 999 mls/hr .Q1H1M STA Administration Sodium Chloride Confirm 06/03/20 10:05 Sodium Chloride 0.9% 1000 Ml Administered 06/03/20 10:06 Dose 1,000 mls @ ud .ROUTE .STK-MED ONE Ondansetron HCl 4 mg 06/03/20 09:55 06/03/20 10:07 Zofran 4 Mg/2 Ml Vial IV 06/03/20 09:56 4 mg STAT ONE Administration Ondansetron HCl Confirm 06/03/20 10:05 Zofran 4 Mg/2 Ml Vial Administered 06/03/20 10:06 Dose 4 mg .ROUTE .[facility] ONE Lab/Rad Data: Laboratory Result Diagrams 06/03/20 09:36 06/03/20 09:36 Laboratory Results 06/03/20 06/03/20 06/03/20 Range/Units 10:06 09:36 09:36 WBC 7.3 (4.0-10.5) K/mm3 RBC 5.26 (4.1-5.6) M/mm3 Hgb 16.4 (12.5-18.0) gm/dl Hct 48.5 (42-50) % MCV 92.2 (78-100) fl MCH 31.2 (26-32) pg MCHC 33.8 (32-36) g/dl RDW 16.0 H (11.5-14.0) % Plt Count 75 L (150-450) K/mm3 MPV 12.4 H (7.5-11.0) fl Gran % 60.4 (36.0-66.0) % Eos # (Auto) 0.22 (0-0.5) Absolute Lymphs (auto) 1.78 (1.0-4.6) Absolute Monos (auto) 0.85 (0.0-1.3) Lymphocytes % 24.3 (24.0-44.0) % Monocytes % 11.6 (0.0-12.0) % Eosinophils % 3.0 (0.00-5.0) % Basophils % 0.7 (0.0-0.4) % Absolute Granulocytes 4.44 (1.4-6.9) Basophils # 0.05 (0-0.4) Sodium 135 L (137-145) mmol/L Potassium 3.8 (3.5-5.1) mmol/L Chloride 105 (98-107) mmol/L Carbon Dioxide 25 (22-30) mmol/L Anion Gap 10.7 (5-15) MEQ/L BUN 12 (9-20) mg/dL Creatinine 0.65 L (0.66-1.25) mg/dL Estimated GFR > 60.0 ML/MIN Glucose 102 (74-106) mg/dL Lactic Acid 0.9 (0.4-2.0) Calcium 9.1 (8.4-10.2) mg/dL Total Bilirubin 2.60 H (0.2-1.3) mg/dL AST 96 H (17-59) U/L ALT 29 (0-50) U/L Alkaline Phosphatase 124 (38-126) U/L Serum Total Protein 9.0 H (6.3-8.2) g/dL Albumin 4.6 (3.5-5.0) g/dL Amylase 79 (30-110) U/L Lipase 149 (23-300) U/L Slides for Path Review YES - Progress Progress: improved, pain not gone completely, re-examined Progress Note: 06/03/20 11:08 CAT scan of the abdomen and pelvis shows cirrhotic liver with distal esophageal varices. There are some enlarged mesenteric lymph nodes consistent with mesenteric adenitis. Counseled pt/family regarding: lab results, diagnosis, need for follow-up, rad results - Departure Departure Disposition: Home Clinical Impression: Mesenteric adenitis, Cirrhosis of liver, Esophageal varices in cirrhosis Condition: Stable Critical Care Time: No Referrals: KETAN ECHEVARRIA [Primary Care Provider] - Additional Instructions: Drink plenty of fluids. Follow-up with your primary care doctor and housekeeping worker as well as liver specialist for further management. Prescriptions: Ondansetron HCl [Zofran] 4 mg PO TID PRN #10 tablet PRN Reason: Nausea/Vomiting
[2020-06-03] MEDS ORDERED: Hydromorphone 1 mg/ml Injection IV ONE ×2 (09:55→12:01)
[2020-06-03] MEDS ORDERED: Sodium Chloride 0.9% 1000 ML 1,000 ML IV STA (09:55)
[2020-06-03] MEDS ORDERED: Zofran 4 MG/2 ML VIAL IV ONE ×2 (09:55→12:12)
[2020-06-03] MEDS ORDERED: Sodium Chloride 0.9% 1000 ML 1,000 ML ONE (10:05)
[2020-06-03] MEDS ORDERED: Hydromorphone 1 mg/ml Injection ONE ×2 (10:05→12:08)
[2020-06-03] MEDS ORDERED: Zofran 4 MG/2 ML VIAL ONE ×2 (10:05→12:08)
[2020-06-03 10:10] LABS: Absolute Neutrophil Ct (ANC) 4.44 (1.4-6.9); BASOPHIL % 0.7 % (0.0-0.4); Basophil (Absolute #) 0.05 (0-0.4); Eosinophil (Absolute #) 0.22 (0-0.5); Hematocrit 48.5 % (42-50); Hemoglobin 16.4 gm/dl (12.5-18.0); Lymphocyte (Absolute #) 1.78 (1.0-4.6); Lymphocytes % 24.3 % (24.0-44.0); Mean Cell Volume 92.2 fl (78-100); Mean Corpuscular Hemoglobin 31.2 pg (26-32); Mean Corpuscular Hgb Concent. 33.8 g/dl (32-36); Mean Platelet Volume 12.4 fl (7.5-11.0); Monocyte (Absolute #) 0.85 (0.0-1.3); Monocytes % 11.6 % (0.0-12.0); Neutrophil % 60.4 % (36.0-66.0); Platelet Count 75 K/mm3 (150-450); Red Blood Count 5.26 M/mm3 (4.1-5.6); White Blood Count 7.3 K/mm3 (4.0-10.5)
[2020-06-03 10:26] LABS: ALBUMIN 4.6 g/dL (3.5-5.0); ALKALINE PHOSPHATASE 124 U/L (38-126); AMYLASE 79 U/L (30-110); ANION GAP 10.7 MEQ/L (5-15); BLOOD UREA NITROGEN 12 mg/dL (9-20); CHLORIDE 105 mmol/L (98-107); Calcium 9.1 mg/dL (8.4-10.2); Carbon Dioxide 25 mmol/L (22-30); Creatinine 1 0.65 mg/dL (0.66-1.25); EST GLOMERULAR FILTRATION RATE > 60.0 ML/MIN; Glucose 102 mg/dL (74-106); LIPASE 149 U/L (23-300); SGOT/AST 96 U/L (17-59); SGPT/ALT 29 U/L (0-50); SODIUM 135 mmol/L (137-145)
[2020-06-03 10:29] LABS: Slide Review 1 YES
--- NOTE | 2020-06-03 10:41 | XRAY ---
Indication: Right upper quadrant and right flank pain. Multiple contiguous axial images obtained through the abdomen and pelvis without contrast as ordered. Comparison: December 27, 2016. Lung bases remain clear. Heart is not enlarged. Distal esophagus again demonstrates paraesophageal varices. Noncontrasted stomach and bowel loops appear nonobstructed. Normal appendix. There remains cirrhotic liver, 20 cm splenomegaly, splenorenal varices, and cholecystectomy. No free fluid/air. There remains several subcentimeter midabdomen mesenteric nodes with now minimal stranding favoring adenitis. Remaining liver, pancreas, spleen, adrenal glands, kidneys, ureters, bladder, and aorta appear unremarkable for noncontrast exam. Stable minimal bilateral iliac artery calcifications. Osseous structures intact again with mild degenerative changes throughout the spine, small multilevel thoracolumbar Schmorl nodes, and old bilateral lower rib fractures. Impression: 1. Again cirrhotic liver, splenomegaly, splenorenal varices, and distal paraesophageal varices. No ascites. 2. Several small midabdomen mesenteric nodes with now minimal stranding favoring mesenteric adenitis. 3. Chronic bony findings. 4. Remaining CT abdomen/pelvis without contrast exam is negative.
[2020-06-03 11:01] LABS: Potassium 3.8 mmol/L (3.5-5.1)
[2020-06-03 11:23] VITALS: BP 132/71; PULSE 52; O2SAT 98
[2020-06-03 11:56] LABS: Appearance CLEAR (CLEAR); Bilirubin NEGATIVE (NEGATIVE); Blood NEGATIVE Ery/ul (0-5); Glucose NEGATIVE (NEGATIVE); Ketones NEGATIVE (NEGATIVE); Leukocyte Esterase NEGATIVE (NEGATIVE); Mucus SLIGHT /HPF (NEGATIVE); Nitrite NEGATIVE (NEGATIVE); Protein,Urine Dip NEGATIVE (Negative); Specific Gravity 1.009 (1.005-1.025); Urobilinogen NEGATIVE mg/dL (0-1)
== END 2020-06-03 12:21 | disposition home or self-care (01) ==
LOC: ED 09:22
DX: I88.0 Nonspecific mesenteric lymphadenitis (principal)
CPT/HCPCS: 36415; 74176; 80053; 81001; 82150; 83605; 83690; 85025; 93925; 96374; 96375; 96376; 99284; J1170; J2405

== ENCOUNTER 2020-08-30 18:35 | Observation (INO) | payer MEDICARE ==
[2020-08-30] MEDS: Sodium Chloride 0.9% 1000 ML 1,000 ML IV SCH (19:15)
--- NOTE | 2020-08-30 19:24 | ERPHSYRPT ---
- History of Present Illness Time Seen by Provider: 08/30/20 18:50 Source: patient Exam Limitations: no limitations Patient Subjective Stated Complaint: Confusion Triage Nursing Assessment: Patient ambulated back to ED and transferred self to bed. Patient Alert to self only. Patient's skin pale and clammy. Patient's nephew states patient has became increasinly confused over the past week. Patient has been paranoid thinking people were trying to kill him. Patient's nephew states patient has not been taking his meds correctly and has a hx of c irrhosis. Physician History: Patient is a 50-year-old male with a history of hepatitis and cirrhosis bipolar presents to our ED with his cousin for evaluation of confusion. Patient is here with his cousin. He states that patient lives with his parents. Patient's parents called cousin and informed them that patient is confused. Patient reports that he has not slept in 6 days. Family states that patient is paranoid. Patient states that people are trying to kill him. Patient states he is bipolar. Patient has not been compliant with his home medication regimen. Patient admits that he has not taken his home medications as required. Patient denies pain. No chest pain or shortness of breath. No nausea vomiting or diaphoresis. No fever. Allergies/Adverse Reactions: nitrofurantoin [From Macrobid] Allergy (Verified 08/30/20 18:43) Home Medications: Albuterol Common Canister [Ventolin Common Canister] 2 puffs IH Q4HPRN PRN 11/04/18 [History] Bumetanide 2 mg PO BID 11/04/18 [History] Lactulose 15 ml PO QID PRN PRN 11/04/18 [History] Levothyroxine Sodium 200 mcg PO DAILY 11/04/18 [History] Propranolol HCl 40 mg PO DAILY 11/04/18 [History] Rifaximin [Xifaxan] 550 mg PO BID 11/04/18 [History] Diphenhydramine HCl [Benadryl Allergy] 50 mg PO HS PRN PRN 04/11/20 [History] Potassium Chloride [Klor-Con 8] 8 meq PO UD 04/11/20 [History] Hx Tetanus, Diphtheria Vaccination/Date Given: No Hx Influenza Vaccination/Date Given: Yes Hx Pneumococcal Vaccination/Date Given: No Immunizations Up to Date: Yes Travel Risk - International Travel Have you traveled outside of the country in past 3 weeks: No - Coronavirus Screening Are you exhibiting any of the following symptoms?: No Close contact with a COVID-19 positive Pt in past 14-21 Days: No - Review of Systems All Other Systems: Unable due to condition - Past Medical History Pertinent Past Medical History: Yes Neurological History: No Pertinent History ENT History: No Pertinent History Cardiac History: Coronary Artery Disease, Hypertension Respiratory History: No Pertinent History Endocrine Medical History: Hypothyroidism Musculoskeletal History: Osteoarthritis GI Medical History: Hepatitis, Cirrhosis History: No Pertinent History Psycho-Social History: No Pertinent History Male Reproductive Disorders: No Pertinent History Other Medical History: frequent cellulitis in lower ext - Past Surgical History Past Surgical History: Yes Neuro Surgical History: No Pertinent History Cardiac: No Pertinent History Respiratory: No Pertinent History Gastrointestinal: Cholecystectomy Genitourinary: No Pertinent History Musculoskeletal: Orthopedic Surgery Male Surgical History: No Pertinent History Other Surgical History: rt knee, - Social History Smoking Status: Current every day smoker How long have you smoked: years Exposure to second hand smoke: No Drug Use: marijuana Patient Lives Alone: No - Nursing Vital Signs Nursing Vital Signs: Initial Vital Signs Temperature 98.9 F 08/30/20 18:49 Pulse Rate 127 H 08/30/20 18:49 Respiratory Rate 18 08/30/20 18:49 Blood Pressure 126/90 08/30/20 18:49 O2 Sat by Pulse Oximetry 95 08/30/20 18:49 Pain Scale Pain Intensity 0 - Physical Exam General Appearance: no apparent distress, alert Eye Exam: PERRL/EOMI, eyes nml inspection Ears, Nose, Throat Exam: normal ENT inspection, TMs normal, pharynx normal, moist mucous membranes Neck Exam: normal inspection, non-tender, supple, full range of motion Respiratory Exam: normal breath sounds, lungs clear, No respiratory distress Cardiovascular Exam: regular rate/rhythm, normal heart sounds, normal peripheral pulses Gastrointestinal/Abdomen Exam: soft, normal bowel sounds, No tenderness, No mass Back Exam: normal inspection, normal range of motion, other (Lipoma upper back), No CVA tenderness, No vertebral tenderness Extremity Exam: normal inspection, normal range of motion, pelvis stable, other (Hyperpigmented bilateral lower extremity. Patient attributes this to chronic recurrent cellulitis. No cellulitis currently. Extremity otherwise neurovascular tact distally.) Neurologic Exam: alert, oriented x 3, cooperative, hair weaver II-XII nml as tested, normal mood/affect, nml cerebellar function, nml station & gait, sensation nml, No motor deficits, No sensory deficit, No disoriented (Patient is A&Ox4), No uncooperative, No intoxicated appearance, No facial droop, No slurred speech, No aphasia, No dysarthria, No abnormal gait (Patient ambulated throughout our ED. Patient displayed normal gait pattern no unsteady gait.), No abnormal hair weaver II- XII, No EOM palsy Skin Exam: normal color, warm, dry, No rash Lymphatic Exam: No adenopathy SpO2 Interpretation: normal SpO2: 95 O2 Delivery: Room Air - Course Nursing assessment & vital signs reviewed: Yes EKG Interpreted by Me: RATE (125), A-fib, NORMAL AXIS, NORMAL INTERVALS - CT Exams Head CT Interpretation: Tele-radiologist Report (No acute findings. No significant interval change.) Ordered Tests: Active Orders 24 hr Category Date Time Status Bedrest ROUTINE Activity 08/30/20 22:49 Active Code Status Order ROUTINE Care 08/30/20 22:49 Active EKG-ER Only STAT Care 08/30/20 19:09 Completed IV Care Q6H Care 08/30/20 22:49 Active IV Insertion STAT Care 08/30/20 19:09 Completed Neuro Checks Q4H Care 08/30/20 22:[address] in Observation ROUTINE Care 08/30/20 22:49 Active Telemetry q6h Care 08/30/20 22:49 Active Heart-Healthy Diet Diet 08/30/20 Breakfast Active HEAD WITHOUT CONTRAST [CT] Stat Exams 08/30/20 19:13 Completed ABG [ARTERIAL BLOOD GASES] Stat Lab 08/30/20 19:53 Completed ACETAMINOPHEN Stat Lab 08/30/20 19:20 Completed CBC W DIFF AM.LAB Lab 08/31/20 04:00 Ordered CBC W DIFF Stat Lab 08/30/20 19:20 Completed CMP AM.LAB Lab 08/31/20 04:00 Ordered CMP Stat Lab 08/30/20 19:20 Completed ETHYL ALCOHOL Stat Lab 08/30/20 19:20 Completed LIPASE Stat Lab 08/30/20 19:20 Completed Lactic Acid Stat Lab 08/30/20 19:53 Completed MAGNESIUM Stat Lab 08/30/20 18:40 Completed POCT GLUCOSE Stat Lab 08/30/20 19:11 Completed PROTIME WITH INR Stat Lab 08/30/20 18:40 Completed PTT Stat Lab 08/30/20 18:40 Completed SALICYLATE Stat Lab 08/30/20 19:20 Completed TROPONIN Q3H Lab 08/30/20 19:20 Completed TROPONIN Q3H Lab 08/30/20 22:05 Completed TROPONIN Q3H Lab 08/31/20 01:15 Ordered TROPONIN Q3H Lab 08/31/20 04:15 Ordered TROPONIN Q3H Lab 08/31/20 07:15 Ordered UA W/RFX UR CULTURE Stat Lab 08/30/20 19:12 Completed Urine Triage Profile Stat Lab 08/30/20 19:16 Completed Pulse Oximetry CONTINUOUS RT 08/30/20 22:49 Active Transfer Order Routine Transfer 08/30/20 Completed Medication Summary Generic Name Dose Route Start Last Admin Trade Name Freq PRN Reason Stop Dose Admin Sodium Chloride 1,000 mls @ 100 mls/hr 08/30/20 19:15 08/30/20 19:15 Sodium Chloride 0.9% 1000 Ml IV 09/29/20 19:14 100 mls/hr .Q10H MENDEL Administration Diltiazem HCl 100 mls @ 10 mls/hr 08/30/20 20:22 08/30/20 20:29 Cardizem Drip 100 Mg/100 Ml D5w IV 09/29/20 20:21 10 mg/hr .Q10H PRN 10 mls/hr HEART RATE/ A-FIB Administration Protocol 10 MG/HR Magnesium Sulfate/Dextrose 100 mls @ 100 mls/hr 08/30/20 22:15 08/30/20 22:45 Magnesium 1 Gm / 100 Ml D5w IV 08/31/20 00:14 100 mls/hr Q1H MENDEL Administration Morphine Sulfate 2 mg 08/30/20 22:49 Morphine Sulfate 2 Mg Inj IV 09/04/20 22:48 Q4H PRN PRN PAIN Ondansetron HCl 4 mg 08/30/20 22:49 Zofran 4 Mg/2 Ml Vial IV 09/29/20 22:48 Q6H PRN PRN NAUSEA/VOMITING Discontinued Medications Generic Name Dose Route Start Last Admin Trade Name Freq PRN Reason Stop Dose Admin Diltiazem HCl 15 mg 08/30/20 20:23 08/30/20 20:29 Cardizem Iv 50 Mg/10 Ml IV 08/30/20 20:24 15 mg STAT ONE Administration Diltiazem HCl Confirm 08/30/20 20:28 Cardizem Iv 50 Mg/10 Ml Administered 08/30/20 20:29 Dose 50 mg IV .STK-MED ONE Diphenhydramine HCl 25 mg 08/30/20 22:42 Benadryl 50 Mg/Ml IV 08/30/20 22:43 STAT ONE Enoxaparin Sodium 80 mg 08/30/20 20:27 08/30/20 20:38 Enoxaparin Sodium SQ 08/30/20 20:28 80 mg STAT ONE Administration Enoxaparin Sodium Confirm 08/30/20 20:38 Enoxaparin Sodium Administered 08/30/20 20:39 Dose 80 mg SQ .STK-MED ONE Ceftriaxone Sodium/Dextrose 1 g in 50 mls @ 100 mls/hr 08/30/20 21:47 08/30/20 22:22 Rocephin 1 Gm-D5w 50 Ml Bag IV 08/30/20 22:16 100 mls/hr STAT STA 100 mls/hr Administration Ceftriaxone Sodium/Dextrose Confirm 08/30/20 22:10 Rocephin 1 Gm-D5w 50 Ml Bag Administered 08/30/20 22:11 Dose 1 g in 50 mls @ ud IV .STK-MED ONE Magnesium Sulfate 2 gm 08/30/20 20:58 Magnesium Sulfate 1 Gm/2 Ml Vial IV 08/30/20 20:59 ONCE STA Magnesium Sulfate Confirm 08/30/20 22:10 Magnesium Sulfate 1 Gm/2 Ml Vial Administered 08/30/20 22:11 Dose 1 gm .ROUTE .STK-MED ONE Lab/Rad Data: Laboratory Result Diagrams 08/30/20 19:20 08/30/20 19:20 Laboratory Results 08/30/20 08/30/20 08/30/20 Range/Units 22:05 19:53 19:53 WBC (4.0-10.5) K/mm3 RBC (4.1-5.6) M/mm3 Hgb (12.5-18.0) gm/dl Hct (42-50) % MCV (78-100) fl MCH (26-32) pg MCHC (32-36) g/dl RDW (11.5-14.0) % Plt Count (150-450) K/mm3 MPV (7.5-11.0) fl Gran % (36.0-66.0) % Eos # (Auto) (0-0.5) Absolute Lymphs (auto) (1.0-4.6) Absolute Monos (auto) (0.0-1.3) Lymphocytes % (24.0-44.0) % Monocytes % (0.0-12.0) % Eosinophils % (0.00-5.0) % Basophils % (0.0-0.4) % Absolute Granulocytes (1.4-6.9) Basophils # (0-0.4) PT (8.83-12.87) SECONDS INR (0.8-3.0) APTT (24.1-36.1) SECONDS Puncture Site RIGHT BRACHIAL pCO2 36 (35-45) mmHg pO2 76 (75-100) mmHg Base Excess 1.3 (-2.0-2.0) O2 Saturation 89.0 L (94-100) g/dF ABG pH 7.45 (7.35-7.45) ABG HCO3 25.0 (22-28) ABG O2 Sat (Measured) 97.1 (95-100) % Gideon Test NO A-a Gradient 29 a/A Ratio 0.72 Hemoglobin 18.9 Carboxyhemoglobin 7.0 H* (0.0-6.9) % THgb Methemoglobin 1.3 L (1.4-1.5) % Temperature 37.0 C POC O2 Flow Rate 21 % Sodium (137-145) mmol/L Potassium 3.2 L (3.5-5.1) mmol/L Chloride (98-107) mmol/L Carbon Dioxide (22-30) mmol/L Anion Gap (5-15) MEQ/L BUN (9-20) mg/dL Creatinine (0.66-1.25) mg/dL Estimated GFR ML/MIN Glucose (74-106) mg/dL POC Glucometer (74 to 106) mg/dL Lactic Acid 1.2 (0.4-2.0) Calcium (8.4-10.2) mg/dL Magnesium (1.6-2.3) mg/dL Total Bilirubin (0.2-1.3) mg/dL AST (17-59) U/L ALT (0-50) U/L Alkaline Phosphatase (38-126) U/L Ammonia (9-30) umol/L Troponin I < 0.012 (0.000-0.034) ng/mL Serum Total Protein (6.3-8.2) g/dL Albumin (3.5-5.0) g/dL Lipase (23-300) U/L Urine Color (YELLOW) Urine Appearance (CLEAR) Urine pH (5-6) Ur Specific [place] (1.005-1.025) Urine Protein (Negative) Urine Ketones (NEGATIVE) Urine Blood (0-5) Christopher/ul Urine Nitrite (NEGATIVE) Urine Bilirubin (NEGATIVE) Urine Urobilinogen (0-1) mg/dL Ur Leukocyte Esterase (NEGATIVE) Urine WBC (Auto) (0-5) /HPF Urine RBC (Auto) (0-2) /HPF U Hyaline Cast (Auto) (0-2) /LPF U Epithel Cells (Auto) (FEW) /HPF Urine Bacteria (Auto) (NEGATIVE) /HPF Calcium Oxalate Crystal (NEGATIVE) /HPF Urine Mucus (Auto) (NEGATIVE) /HPF Urine Culture Reflexed (NO) Urine Glucose (NEGATIVE) mg/dL Salicylates (2-20) mg/dL Urine Opiates Level (NEGATIVE) Ur Methadone (NEGATIVE) Acetaminophen (10-30) ug/ml Urine Barbiturates (NEGATIVE) Ur Phencyclidine (PCP) (NEGATIVE) Urine Amphetamine (NEGATIVE) U Benzodiazepine Level (NEGATIVE) Urine Cocaine (NEGATIVE) Urine Marijuana (THC) (NEGATIVE) Ethyl Alcohol (0-10) mg/dL 08/30/20 08/30/20 08/30/20 Range/Units 19:40 19:20 19:20 WBC (4.0-10.5) K/mm3 RBC (4.1-5.6) M/mm3 Hgb (12.5-18.0) gm/dl Hct (42-50) % MCV (78-100) fl MCH (26-32) pg MCHC (32-36) g/dl RDW (11.5-14.0) % Plt Count (150-450) K/mm3 MPV (7.5-11.0) fl Gran % (36.0-66.0) % Eos # (Auto) (0-0.5) Absolute Lymphs (auto) (1.0-4.6) Absolute Monos (auto) (0.0-1.3) Lymphocytes % (24.0-44.0) % Monocytes % (0.0-12.0) % Eosinophils % (0.00-5.0) % Basophils % (0.0-0.4) % Absolute Granulocytes (1.4-6.9) Basophils # (0-0.4) PT (8.83-12.87) SECONDS INR (0.8-3.0) APTT (24.1-36.1) SECONDS Puncture Site pCO2 (35-45) mmHg pO2 (75-100) mmHg Base Excess (-2.0-2.0) O2 Saturation (94-100) g/dF ABG pH (7.35-7.45) ABG HCO3 (22-28) ABG O2 Sat (Measured) (95-100) % Gideon Test A-a Gradient a/A Ratio Hemoglobin Carboxyhemoglobin (0.0-6.9) % THgb Methemoglobin (1.4-1.5) % Temperature C POC O2 Flow Rate % Sodium (137-145) mmol/L Potassium (3.5-5.1) mmol/L Chloride (98-107) mmol/L Carbon Dioxide (22-30) mmol/L Anion Gap (5-15) MEQ/L BUN (9-20) mg/dL Creatinine (0.66-1.25) mg/dL Estimated GFR ML/MIN Glucose (74-106) mg/dL POC Glucometer (74 to 106) mg/dL Lactic Acid (0.4-2.0) Calcium (8.4-10.2) mg/dL Magnesium (1.6-2.3) mg/dL Total Bilirubin (0.2-1.3) mg/dL AST (17-59) U/L ALT (0-50) U/L Alkaline Phosphatase (38-126) U/L Ammonia 22 (9-30) umol/L Troponin I < 0.012 (0.000-0.034) ng/mL Serum Total Protein (6.3-8.2) g/dL Albumin (3.5-5.0) g/dL Lipase (23-300) U/L Urine Color (YELLOW) Urine Appearance (CLEAR) Urine pH (5-6) Ur Specific [place] (1.005-1.025) Urine Protein (Negative) Urine Ketones (NEGATIVE) Urine Blood (0-5) Christopher/ul Urine Nitrite (NEGATIVE) Urine Bilirubin (NEGATIVE) Urine Urobilinogen (0-1) mg/dL Ur Leukocyte Esterase (NEGATIVE) Urine WBC (Auto) (0-5) /HPF Urine RBC (Auto) (0-2) /HPF U Hyaline Cast (Auto) (0-2) /LPF U Epithel Cells (Auto) (FEW) /HPF Urine Bacteria (Auto) (NEGATIVE) /HPF Calcium Oxalate Crystal (NEGATIVE) /HPF Urine Mucus (Auto) (NEGATIVE) /HPF Urine Culture Reflexed (NO) Urine Glucose (NEGATIVE) mg/dL Salicylates < 1.0 L (2-20) mg/dL Urine Opiates Level (NEGATIVE) Ur Methadone (NEGATIVE) Acetaminophen < 10 L (10-30) ug/ml Urine Barbiturates (NEGATIVE) Ur Phencyclidine (PCP) (NEGATIVE) Urine Amphetamine (NEGATIVE) U Benzodiazepine Level (NEGATIVE) Urine Cocaine (NEGATIVE) Urine Marijuana (THC) (NEGATIVE) Ethyl Alcohol < 10 (0-10) mg/dL 08/30/20 08/30/20 08/30/20 Range/Units 19:20 19:20 19:16 WBC 8.4 (4.0-10.5) K/mm3 RBC 6.20 H* (4.1-5.6) M/mm3 Hgb 19.3 H (12.5-18.0) gm/dl Hct 55.0 H (42-50) % MCV 88.7 (78-100) fl MCH 31.1 (26-32) pg MCHC 35.1 (32-36) g/dl RDW 16.8 H (11.5-14.0) % Plt Count 128 L (150-450) K/mm3 MPV 12.4 H (7.5-11.0) fl Gran % 57.1 (36.0-66.0) % Eos # (Auto) 0.19 (0-0.5) Absolute Lymphs (auto) 2.25 (1.0-4.6) Absolute Monos (auto) 1.06 (0.0-1.3) Lymphocytes % 26.9 (24.0-44.0) % Monocytes % 12.7 H (0.0-12.0) % Eosinophils % 2.3 (0.00-5.0) % Basophils % 1.0 (0.0-0.4) % Absolute Granulocytes 4.77 (1.4-6.9) Basophils # 0.08 (0-0.4) PT (8.83-12.87) SECONDS INR (0.8-3.0) APTT (24.1-36.1) SECONDS Puncture Site pCO2 (35-45) mmHg pO2 (75-100) mmHg Base Excess (-2.0-2.0) O2 Saturation (94-100) g/dF ABG pH (7.35-7.45) ABG HCO3 (22-28) ABG O2 Sat (Measured) (95-100) % Gideon Test A-a Gradient a/A Ratio Hemoglobin Carboxyhemoglobin (0.0-6.9) % THgb Methemoglobin (1.4-1.5) % Temperature C POC O2 Flow Rate % Sodium 137 (137-145) mmol/L Potassium 3.5 (3.5-5.1) mmol/L Chloride 107 (98-107) mmol/L Carbon Dioxide 24 (22-30) mmol/L Anion Gap 9.5 (5-15) MEQ/L BUN 14 (9-20) mg/dL Creatinine 0.58 L (0.66-1.25) mg/dL Estimated GFR > 60.0 ML/MIN Glucose 122 H (74-106) mg/dL POC Glucometer (74 to 106) mg/dL Lactic Acid (0.4-2.0) Calcium 9.3 (8.4-10.2) mg/dL Magnesium (1.6-2.3) mg/dL Total Bilirubin 1.00 (0.2-1.3) mg/dL AST 39 (17-59) U/L ALT 30 (0-50) U/L Alkaline Phosphatase 123 (38-126) U/L Ammonia (9-30) umol/L Troponin I (0.000-0.034) ng/mL Serum Total Protein 6.9 (6.3-8.2) g/dL Albumin 3.5 (3.5-5.0) g/dL Lipase 162 (23-300) U/L Urine Color (YELLOW) Urine Appearance (CLEAR) Urine pH (5-6) Ur Specific [place] (1.005-1.025) Urine Protein (Negative) Urine Ketones (NEGATIVE) Urine Blood (0-5) Christopher/ul Urine Nitrite (NEGATIVE) Urine Bilirubin (NEGATIVE) Urine Urobilinogen (0-1) mg/dL Ur Leukocyte Esterase (NEGATIVE) Urine WBC (Auto) (0-5) /HPF Urine RBC (Auto) (0-2) /HPF U Hyaline Cast (Auto) (0-2) /LPF U Epithel Cells (Auto) (FEW) /HPF Urine Bacteria (Auto) (NEGATIVE) /HPF Calcium Oxalate Crystal (NEGATIVE) /HPF Urine Mucus (Auto) (NEGATIVE) /HPF Urine Culture Reflexed (NO) Urine Glucose (NEGATIVE) mg/dL Salicylates (2-20) mg/dL Urine Opiates Level NEGATIVE (NEGATIVE) Ur Methadone NEGATIVE (NEGATIVE) Acetaminophen (10-30) ug/ml Urine Barbiturates NEGATIVE (NEGATIVE) Ur Phencyclidine (PCP) NEGATIVE (NEGATIVE) Urine Amphetamine NEGATIVE (NEGATIVE) U Benzodiazepine Level NEGATIVE (NEGATIVE) Urine Cocaine NEGATIVE (NEGATIVE) Urine Marijuana (THC) POSITIVE (NEGATIVE) Ethyl Alcohol (0-10) mg/dL 08/30/20 08/30/20 08/30/20 Range/Units 19:12 19:11 18:40 WBC (4.0-10.5) K/mm3 RBC (4.1-5.6) M/mm3 Hgb (12.5-18.0) gm/dl Hct (42-50) % MCV (78-100) fl MCH (26-32) pg MCHC (32-36) g/dl RDW (11.5-14.0) % Plt Count (150-450) K/mm3 MPV (7.5-11.0) fl Gran % (36.0-66.0) % Eos # (Auto) (0-0.5) Absolute Lymphs (auto) (1.0-4.6) Absolute Monos (auto) (0.0-1.3) Lymphocytes % (24.0-44.0) % Monocytes % (0.0-12.0) % Eosinophils % (0.00-5.0) % Basophils % (0.0-0.4) % Absolute Granulocytes (1.4-6.9) Basophils # (0-0.4) PT (8.83-12.87) SECONDS INR (0.8-3.0) APTT (24.1-36.1) SECONDS Puncture Site pCO2 (35-45) mmHg pO2 (75-100) mmHg Base Excess (-2.0-2.0) O2 Saturation (94-100) g/dF ABG pH (7.35-7.45) ABG HCO3 (22-28) ABG O2 Sat (Measured) (95-100) % Gideon Test A-a Gradient a/A Ratio Hemoglobin Carboxyhemoglobin (0.0-6.9) % THgb Methemoglobin (1.4-1.5) % Temperature C POC O2 Flow Rate % Sodium (137-145) mmol/L Potassium (3.5-5.1) mmol/L Chloride (98-107) mmol/L Carbon Dioxide (22-30) mmol/L Anion Gap (5-15) MEQ/L BUN (9-20) mg/dL Creatinine (0.66-1.25) mg/dL Estimated GFR ML/MIN Glucose (74-106) mg/dL POC Glucometer 119 H (74 to 106) mg/dL Lactic Acid (0.4-2.0) Calcium (8.4-10.2) mg/dL Magnesium 1.6 (1.6-2.3) mg/dL Total Bilirubin (0.2-1.3) mg/dL AST (17-59) U/L ALT (0-50) U/L Alkaline Phosphatase (38-126) U/L Ammonia (9-30) umol/L Troponin I (0.000-0.034) ng/mL Serum Total Protein (6.3-8.2) g/dL Albumin (3.5-5.0) g/dL Lipase (23-300) U/L Urine Color KIERA (YELLOW) Urine Appearance CLOUDY (CLEAR) Urine pH 5.0 (5-6) Ur Specific [place] 1.029 (1.005-1.025) Urine Protein 100 (Negative) Urine Ketones TRACE (NEGATIVE) Urine Blood NEGATIVE (0-5) Christopher/ul Urine Nitrite NEGATIVE (NEGATIVE) Urine Bilirubin NEGATIVE (NEGATIVE) Urine Urobilinogen 4 (0-1) mg/dL Ur Leukocyte Esterase NEGATIVE (NEGATIVE) Urine WBC (Auto) 6-10 (0-5) /HPF Urine RBC (Auto) 11-15 (0-2) /HPF U Hyaline Cast (Auto) 3-5 (0-2) /LPF U Epithel Cells (Auto) FEW (FEW) /HPF Urine Bacteria (Auto) NONE (NEGATIVE) /HPF Calcium Oxalate Crystal 11-25 (NEGATIVE) /HPF Urine Mucus (Auto) SLIGHT (NEGATIVE) /HPF Urine Culture Reflexed NO (NO) Urine Glucose NEGATIVE (NEGATIVE) mg/dL Salicylates (2-20) mg/dL Urine Opiates Level (NEGATIVE) Ur Methadone (NEGATIVE) Acetaminophen (10-30) ug/ml Urine Barbiturates (NEGATIVE) Ur Phencyclidine (PCP) (NEGATIVE) Urine Amphetamine (NEGATIVE) U Benzodiazepine Level (NEGATIVE) Urine Cocaine (NEGATIVE) Urine Marijuana (THC) (NEGATIVE) Ethyl Alcohol (0-10) mg/dL 08/30/20 Range/Units 18:40 WBC (4.0-10.5) K/mm3 RBC (4.1-5.6) M/mm3 Hgb (12.5-18.0) gm/dl Hct (42-50) % MCV (78-100) fl MCH (26-32) pg MCHC (32-36) g/dl RDW (11.5-14.0) % Plt Count (150-450) K/mm3 MPV (7.5-11.0) fl Gran % (36.0-66.0) % Eos # (Auto) (0-0.5) Absolute Lymphs (auto) (1.0-4.6) Absolute Monos (auto) (0.0-1.3) Lymphocytes % (24.0-44.0) % Monocytes % (0.0-12.0) % Eosinophils % (0.00-5.0) % Basophils % (0.0-0.4) % Absolute Granulocytes (1.4-6.9) Basophils # (0-0.4) PT 14.1 H (8.83-12.87) SECONDS INR 1.25 (0.8-3.0) APTT 32.6 (24.1-36.1) SECONDS Puncture Site pCO2 (35-45) mmHg pO2 (75-100) mmHg Base Excess (-2.0-2.0) O2 Saturation (94-100) g/dF ABG pH (7.35-7.45) ABG HCO3 (22-28) ABG O2 Sat (Measured) (95-100) % Gideon Test A-a Gradient a/A Ratio Hemoglobin Carboxyhemoglobin (0.0-6.9) % THgb Methemoglobin (1.4-1.5) % Temperature C POC O2 Flow Rate % Sodium (137-145) mmol/L Potassium (3.5-5.1) mmol/L Chloride (98-107) mmol/L Carbon Dioxide (22-30) mmol/L Anion Gap (5-15) MEQ/L BUN (9-20) mg/dL Creatinine (0.66-1.25) mg/dL Estimated GFR ML/MIN Glucose (74-106) mg/dL POC Glucometer (74 to 106) mg/dL Lactic Acid (0.4-2.0) Calcium (8.4-10.2) mg/dL Magnesium (1.6-2.3) mg/dL Total Bilirubin (0.2-1.3) mg/dL AST (17-59) U/L ALT (0-50) U/L Alkaline Phosphatase (38-126) U/L Ammonia (9-30) umol/L Troponin I (0.000-0.034) ng/mL Serum Total Protein (6.3-8.2) g/dL Albumin (3.5-5.0) g/dL Lipase (23-300) U/L Urine Color (YELLOW) Urine Appearance (CLEAR) Urine pH (5-6) Ur Specific [place] (1.005-1.025) Urine Protein (Negative) Urine Ketones (NEGATIVE) Urine Blood (0-5) Christopher/ul Urine Nitrite (NEGATIVE) Urine Bilirubin (NEGATIVE) Urine Urobilinogen (0-1) mg/dL Ur Leukocyte Esterase (NEGATIVE) Urine WBC (Auto) (0-5) /HPF Urine RBC (Auto) (0-2) /HPF U Hyaline Cast (Auto) (0-2) /LPF U Epithel Cells (Auto) (FEW) /HPF Urine Bacteria (Auto) (NEGATIVE) /HPF Calcium Oxalate Crystal (NEGATIVE) /HPF Urine Mucus (Auto) (NEGATIVE) /HPF Urine Culture Reflexed (NO) Urine Glucose (NEGATIVE) mg/dL Salicylates (2-20) mg/dL Urine Opiates Level (NEGATIVE) Ur Methadone (NEGATIVE) Acetaminophen (10-30) ug/ml Urine Barbiturates (NEGATIVE) Ur Phencyclidine (PCP) (NEGATIVE) Urine Amphetamine (NEGATIVE) U Benzodiazepine Level (NEGATIVE) Urine Cocaine (NEGATIVE) Urine Marijuana (THC) (NEGATIVE) Ethyl Alcohol (0-10) mg/dL - Progress Progress: improved Progress Note: 08/30/20 21:55 Patient is a 50-year-old male presents to our ED via private vehicle for evaluation of confusion. Patient was found to be in A. fib with RVR. Diltiazem initiated. Neuro exam was normal. Due to reports of confusion CT head was performed. CT head negative for acute pathology. Patient reported that he has not slept in 6 days. Patient has been noncompliant with his medications. We will give patient a dose of Benadryl to help him sleep. UA suggestive of urinary tract infection. Ceftriaxone ordered. EKG suggestive of prolonged QT. Magnesium 1.6. Magnesium replaced with 2 g magnesium sulfate. Case discussed with Dr. Valenzuela covering Dr. Stern. Dr. Valenzuela advised that we admit patient to Dr. Stern however DR. Valenzuela will take call throughout the night. Dr. Valenzuela plan of care discussed with patient. He agrees to admission to [facility] for further evaluation and treatment. Discussed with : Mika - Departure Departure Disposition: Observation Clinical Impression: Tachycardia, Insomnia, Confusion, Atrial fibrillation with rapid ventricular response, Thrombocytopenia, Marijuana use, Prolonged Q-T interval on ECG, Paranoid, UTI (urinary tract infection), Nonadherence to medication Condition: Stable Critical Care Time: No
[2020-08-30 19:28] LABS: Absolute Neutrophil Ct (ANC) 4.77 (1.4-6.9); Basophil (Absolute #) 0.08 (0-0.4); Eosinophil % 2.3 % (0.00-5.0); Eosinophil (Absolute #) 0.19 (0-0.5); Hemoglobin 19.3 gm/dl (12.5-18.0); Lymphocyte (Absolute #) 2.25 (1.0-4.6); Lymphocytes % 26.9 % (24.0-44.0); Mean Cell Volume 88.7 fl (78-100); Mean Corpuscular Hemoglobin 31.1 pg (26-32); Mean Corpuscular Hgb Concent. 35.1 g/dl (32-36); Mean Platelet Volume 12.4 fl (7.5-11.0); Monocyte (Absolute #) 1.06 (0.0-1.3); Monocytes % 12.7 % (0.0-12.0); Neutrophil % 57.1 % (36.0-66.0); Platelet Count 128 K/mm3 (150-450); Red Cell Distribution Width 16.8 % (11.5-14.0); White Blood Count 8.4 K/mm3 (4.0-10.5)
[2020-08-30 19:29] LABS: Appearance CLOUDY (CLEAR); Bilirubin NEGATIVE (NEGATIVE); Blood NEGATIVE Ery/ul (0-5); Epithelial Cells FEW /HPF (FEW); Glucose NEGATIVE (NEGATIVE); Ketones TRACE (NEGATIVE); Leukocyte Esterase NEGATIVE (NEGATIVE); Mucus SLIGHT /HPF (NEGATIVE); Nitrite NEGATIVE (NEGATIVE); Protein,Urine Dip 100 (Negative); Specific Gravity 1.029 (1.005-1.025); Urobilinogen 4 mg/dL (0-1)
[2020-08-30 19:38] LABS: ACETAMINOPHEN < 10 ug/ml (10-30); ETHYL ALCOHOL < 10 mg/dL (0-10); SALICYLATE < 1.0 mg/dL (2-20)
[2020-08-30 19:39] LABS: Amphetamine,Urine NEGATIVE (NEGATIVE); Barbiturate,Urine NEGATIVE (NEGATIVE); Benzodiazepine,Urine NEGATIVE (NEGATIVE); Cocaine,Urine NEGATIVE (NEGATIVE); Methadone,Urine NEGATIVE (NEGATIVE); Opiate,Urine NEGATIVE (NEGATIVE); PCP,Urine NEGATIVE (NEGATIVE); THC,Urine POSITIVE (NEGATIVE)
[2020-08-30 19:54] LABS: ALBUMIN 3.5 g/dL (3.5-5.0); ALKALINE PHOSPHATASE 123 U/L (38-126); ANION GAP 9.5 MEQ/L (5-15); BLOOD UREA NITROGEN 14 mg/dL (9-20); CHLORIDE 107 mmol/L (98-107); Calcium 9.3 mg/dL (8.4-10.2); Carbon Dioxide 24 mmol/L (22-30); Creatinine 1 0.58 mg/dL (0.66-1.25); EST GLOMERULAR FILTRATION RATE > 60.0 ML/MIN; Glucose 122 mg/dL (74-106); LIPASE 162 U/L (23-300); Potassium 3.5 mmol/L (3.5-5.1); SGOT/AST 39 U/L (17-59); SGPT/ALT 30 U/L (0-50); SODIUM 137 mmol/L (137-145); Total Protein 6.9 g/dL (6.3-8.2)
[2020-08-30 19:57] LABS: A-aADO2 29; ABG HEMOGLOBIN 18.9; ABG POTASSIUM 3.2 (3.5-5.1); ARTERIAL BLD GAS O2 SATURATION 97.1 % (95-100); ARTERIAL BLOOD GAS BASE EXCESS 1.3 (-2.0-2.0); ARTERIAL BLOOD GAS FIO2 21 %; ARTERIAL BLOOD GAS PCO2 36 mmHg (35-45); ARTERIAL BLOOD GAS PO2 76 mmHg (75-100); ARTERIAL BLOOD GAS pH 7.45 (7.35-7.45); Methhemoglobin 1.3 % (1.4-1.5); paO2 pAO1 0.72
[2020-08-30 19:59] LABS: ABG SITE RIGHT BRACHIAL; ALLEN TEST OK? NO
[2020-08-30] MEDS ORDERED: Cardizem IV 50 MG/10 ML IV ONE ×2 (20:23→20:28)
[2020-08-30] MEDS ORDERED: ENOXAPARIN SODIUM SQ ONE ×2 (20:27→20:38)
[2020-08-30] MEDS: CARDIZEM DRIP 100 MG/100 ML D5W 100 ML IV PRN (20:29)
[2020-08-30 20:40] LABS: INR 1.25 (0.8-3.0); PROTIME 14.1 SECONDS (8.83-12.87)
[2020-08-30 20:43] LABS: PTT 32.6 SECONDS (24.1-36.1)
[2020-08-30] MEDS ORDERED: Magnesium Sulfate 1 GM/2 ML VIAL IV STA (20:58)
[2020-08-30] MEDS ORDERED: ROCEPHIN 1 Gm-D5w 50 ml Bag** 1 G/50 ML IVPB IV STA (21:47)
--- NOTE | 2020-08-30 21:55 | XRAY ---
Indication: Confusion. Multiple contiguous axial images obtained through the head without contrast. Comparison: November 04, 2016. Stable lateral ventricle asymmetry again right larger than left. No acute intracranial hemorrhage, abnormal extra-axial fluid collection, or mass effect. Fourth ventricle is midline without hydrocephalus. Cote-white matter differentiation preserved. Bony calvarium intact.. Visualized paranasal sinuses and mastoid air cells are clear. Impression: Continued negative CT head without contrast exam. Comment: Preliminary interpretation was made by [facility]. No critical discrepancy.
[2020-08-30] MEDS ORDERED: ROCEPHIN 1 Gm-D5w 50 ml Bag** 1 G/50 ML IVPB IV ONE (22:10)
[2020-08-30] MEDS ORDERED: Magnesium Sulfate 1 GM/2 ML VIAL ONE (22:10)
[2020-08-30] MEDS ORDERED: BENADRYL 50 MG/ML IV ONE (22:42)
[2020-08-30] MEDS: Magnesium 1 Gm / 100 Ml D5W*** 100 ML IV SCH (22:45)
[2020-08-30] MEDS ORDERED: Zofran 4 MG/2 ML VIAL IV PRN (22:49)
[2020-08-30] MEDS ORDERED: MORPHINE SULFATE 2 MG INJ IV PRN (22:49)
[2020-08-30] MEDS ORDERED: FLUZONE QUAD 2020-2021 SYRINGE IM ONE (23:38)
[2020-08-31] MEDS: Magnesium 1 Gm / 100 Ml D5W*** 100 ML IV SCH (00:01)
[2020-08-31] MEDS ORDERED: BENADRYL 25 MG CAPSULE PO PRN (01:21)
[2020-08-31] MEDS: CARDIZEM DRIP 100 MG/100 ML D5W 100 ML IV PRN (03:38)
[2020-08-31 05:01] LABS: Absolute Neutrophil Ct (ANC) 4.24 (1.4-6.9); BASOPHIL % 0.6 % (0.0-0.4); Basophil (Absolute #) 0.05 (0-0.4); Eosinophil % 2.1 % (0.00-5.0); Eosinophil (Absolute #) 0.16 (0-0.5); Hematocrit 51.3 % (42-50); Hemoglobin 17.6 gm/dl (12.5-18.0); Lymphocyte (Absolute #) 2.29 (1.0-4.6); Lymphocytes % 29.6 % (24.0-44.0); Mean Cell Volume 89.5 fl (78-100); Mean Corpuscular Hemoglobin 30.7 pg (26-32); Mean Corpuscular Hgb Concent. 34.3 g/dl (32-36); Mean Platelet Volume 11.2 fl (7.5-11.0); Monocytes % 12.9 % (0.0-12.0); Neutrophil % 54.8 % (36.0-66.0); Platelet Count 91 K/mm3 (150-450); Red Blood Count 5.73 M/mm3 (4.1-5.6); Red Cell Distribution Width 16.2 % (11.5-14.0); White Blood Count 7.7 K/mm3 (4.0-10.5)
[2020-08-31 05:27] LABS: ALBUMIN 3.2 g/dL (3.5-5.0); ALKALINE PHOSPHATASE 88 U/L (38-126); ANION GAP 7.7 MEQ/L (5-15); BLOOD UREA NITROGEN 10 mg/dL (9-20); CHLORIDE 108 mmol/L (98-107); Calcium 8.7 mg/dL (8.4-10.2); Carbon Dioxide 23 mmol/L (22-30); Creatinine 1 0.47 mg/dL (0.66-1.25); EST GLOMERULAR FILTRATION RATE > 60.0 ML/MIN; Glucose 111 mg/dL (74-106); Potassium 3.2 mmol/L (3.5-5.1); SGOT/AST 42 U/L (17-59); SGPT/ALT 27 U/L (0-50); SODIUM 136 mmol/L (137-145); Total Protein 6.3 g/dL (6.3-8.2)
[2020-08-31] MEDS: Sodium Chloride 0.9% 1000 ML 1,000 ML IV SCH (05:48)
[2020-08-31 06:59] LABS: Slide Review 1 YES
[2020-08-31] MEDS: VENTOLIN COMMON CANISTER IH SCH ×4 (07:05→19:26)
--- NOTE | 2020-08-31 07:27 | PCM.HP ---
History of Present Illness - Chief Complaint Chief Complaint: Afib with RVR History of Present Illness: is a 50 year old male.Patient with a history of hepatitis and cirrhosis bipolar presents to our ED with his cousin for evaluation of confusion. Patient is here with his cousin. He states that patient lives with his parents. Patient's parents called cousin and informed them that patient is confused. Patient reports that he has not slept in 6 days. Family states that patient is paranoid. Patient states that people are trying to kill him. Patient states he is bipolar. Patient has not been compliant with his home medication regimen. Patient admits that he has not taken his home medications as required. Patient denies pain. No chest pain or shortness of breath. No nausea vomiting or diaphoresis. No fever. Patient has been depressed recently. - Review of Systems Constitutional: Weakness, No Fever, No Chills Eyes: No Symptoms Ears, Nose, & Throat: No Symptoms Respiratory: No Cough, No Short Of Breath Cardiac: No Chest Pain, No Edema, No Syncope Abdominal/Gastrointestinal: No Abdominal Pain, No Nausea, No Vomiting, No Diarrhea Genitourinary Symptoms: No Dysuria Musculoskeletal: No Back Pain, No Neck Pain Skin: No Rash Neurological: No Dizziness, No Focal Weakness, No Sensory Changes Psychological: Anxiety, Depression, Suicidal Ideations, Emotional Lability, Hallucinations, Mood Changes Endocrine: No Symptoms Hematologic/Lymphatic: No Symptoms Immunological/Allergic: No Symptoms Medications & Allergies Home Medications: Home Medication List Albuterol Common Canister [Ventolin Common Canister] 2 puffs IH Q4HPRN PRN 11/04/18 [History Confirmed 08/31/20] Bumetanide 2 mg PO BID 11/04/18 [History Confirmed 08/31/20] Lactulose 15 ml PO QID PRN PRN 11/04/18 [History Confirmed 08/31/20] Levothyroxine Sodium 200 mcg PO DAILY 11/04/18 [History Confirmed 08/31/20] Propranolol HCl 40 mg PO DAILY 11/04/18 [History Confirmed 08/31/20] Rifaximin [Xifaxan] 550 mg PO BID 11/04/18 [History Confirmed 08/31/20] Diphenhydramine HCl [Benadryl Allergy] 50 mg PO HS PRN PRN 04/11/20 [History Confirmed 08/31/20] Potassium Chloride [Klor-Con 8] 8 meq PO UD 04/11/20 [History Confirmed 08/31/20] Ondansetron HCl [Zofran] 4 mg PO TID PRN #10 tablet 06/03/20 [Rx Confirmed 08/31/20] Allergies/Adverse Reactions: Allergies Allergy/AdvReac Type Severity Reaction Status Date / Time nitrofurantoin Allergy Verified 08/30/20 18:43 [From Macrobid] - Past Medical History Past Medical History: Yes Neurological History: No Pertinent History, Stroke ENT History: No Pertinent History Cardiac History: Coronary Artery Disease, Hypertension Respiratory History: No Pertinent History Endocrine Medical History: Hypothyroidism Musculoskelatal History: Osteoarthritis GI Medical History: Hepatitis, Cirrhosis History: No Pertinent History Pyscho-Social History: Anxiety, Bipolar, Depression Male Reproductive Disorders: No Pertinent History Comment: frequent cellulitis in lower extremities - Past Surgical History Past Surgical History: Yes Neuro Surgical History: No Pertinent History Cardiac History: No Pertinent History, Cardiac Catheterization Respiratory Surgery: No Pertinent History GI Surgical History: Cholecystectomy Genitourinary Surgical Hx: No Pertinent History Musculskeletal Surgical Hx: Orthopedic Surgery Male Surgical History: No Pertinent History Other Surgical History: rt knee,. had cath 5 or 6 years ago. - Social History Smoking Status: Current every day smoker How long have you smoked: years Exposure to second hand smoke: No Alcohol: None Drug Use: marijuana - Physical Exam Vital Signs: Vital Signs - 24 hr Temp Pulse Resp BP BP Pulse Ox 08/31/20 07:06 90 16 94 L 08/31/20 06:00 93 H 18 122/87 939 H 08/31/20 05:00 99.0 F 88 18 135/84 94 L 08/31/20 04:00 92 H 08/31/20 03:38 92 H 17 131/94 08/31/20 03:00 94 H 17 131/94 94 L 08/31/20 02:00 99.0 F 95 H 19 117/70 96 08/31/20 01:51 96 H 14 97 08/31/20 01:00 98 H 17 136/97 93 L 08/31/20 00:00 98.7 F 98 H 19 147/80 95 08/30/20 23:51 98.7 F 98 H 17 129/98 95 08/30/20 23:38 93 H 18 147/80 08/30/20 23:12 95 08/30/20 23:00 99 F 98 H 20 120/89 94 L 08/30/20 22:49 95 08/30/20 22:26 108 H 18 148/84 96 08/30/20 20:29 128 H 20 134/71 08/30/20 20:26 128 H 20 134/71 95 08/30/20 20:05 124 H 18 104/82 94 L 08/30/20 19:19 140 H 20 134/104 08/30/20 18:49 98.9 F 127 H 18 126/90 95 General Appearance: no apparent distress, alert Neurologic Exam: alert, oriented x 3, cooperative, normal mood/affect, nml cerebellar function, nml station & gait, sensation nml, No motor deficits Eye Exam: PERRL/EOMI, eyes nml inspection Ears, Nose, Throat Exam: normal ENT inspection, TMs normal, pharynx normal, moist mucous membranes Neck Exam: normal inspection, non-tender, supple, full range of motion Respiratory Exam: normal breath sounds, lungs clear, No respiratory distress Cardiovascular Exam: normal peripheral pulses, tachycardia Gastrointestinal/Abdomen Exam: soft, normal bowel sounds, No tenderness, No mass Back Exam: normal inspection, normal range of motion, No CVA tenderness, No vertebral tenderness Extremity Exam: normal inspection, normal range of motion, pelvis stable Skin Exam: normal color, warm, dry, No rash Lymphatic Exam: No adenopathy Results - Labs Lab/Micro Results: Lab Results-Last 24 Hours 08/30/20 08/30/20 08/30/20 Range/Units 18:40 18:40 19:11 WBC (4.0-10.5) K/mm3 RBC (4.1-5.6) M/mm3 Hgb (12.5-18.0) gm/dl Hct (42-50) % MCV (78-100) fl MCH (26-32) pg MCHC (32-36) g/dl RDW (11.5-14.0) % Plt Count (150-450) K/mm3 MPV (7.5-11.0) fl Gran % (36.0-66.0) % Eos # (Auto) (0-0.5) Absolute Lymphs (auto) (1.0-4.6) Absolute Monos (auto) (0.0-1.3) Lymphocytes % (24.0-44.0) % Monocytes % (0.0-12.0) % Eosinophils % (0.00-5.0) % Basophils % (0.0-0.4) % Absolute Granulocytes (1.4-6.9) Basophils # (0-0.4) PT 14.1 H (8.83-12.87) SECONDS INR 1.25 (0.8-3.0) APTT 32.6 (24.1-36.1) SECONDS Puncture Site pCO2 (35-45) mmHg pO2 (75-100) mmHg Base Excess (-2.0-2.0) O2 Saturation (94-100) g/dF ABG pH (7.35-7.45) ABG HCO3 (22-28) ABG O2 Sat (Measured) (95-100) % Gideon Test A-a Gradient a/A Ratio Hemoglobin Carboxyhemoglobin (0.0-6.9) % THgb Methemoglobin (1.4-1.5) % Temperature C POC O2 Flow Rate % Sodium (137-145) mmol/L Potassium (3.5-5.1) mmol/L Chloride (98-107) mmol/L Carbon Dioxide (22-30) mmol/L Anion Gap (5-15) MEQ/L BUN (9-20) mg/dL Creatinine (0.66-1.25) mg/dL Estimated GFR ML/MIN Glucose (74-106) mg/dL POC Glucometer 119 H (74 to 106) mg/dL Lactic Acid (0.4-2.0) Calcium (8.4-10.2) mg/dL Magnesium 1.6 (1.6-2.3) mg/dL Total Bilirubin (0.2-1.3) mg/dL AST (17-59) U/L ALT (0-50) U/L Alkaline Phosphatase (38-126) U/L Ammonia (9-30) umol/L Troponin I (0.000-0.034) ng/mL Serum Total Protein (6.3-8.2) g/dL Albumin (3.5-5.0) g/dL Lipase (23-300) U/L Urine Color (YELLOW) Urine Appearance (CLEAR) Urine pH (5-6) Ur Specific [place] (1.005-1.025) Urine Protein (Negative) Urine Ketones (NEGATIVE) Urine Blood (0-5) Christopher/ul Urine Nitrite (NEGATIVE) Urine Bilirubin (NEGATIVE) Urine Urobilinogen (0-1) mg/dL Ur Leukocyte Esterase (NEGATIVE) Urine WBC (Auto) (0-5) /HPF Urine RBC (Auto) (0-2) /HPF U Hyaline Cast (Auto) (0-2) /LPF U Epithel Cells (Auto) (FEW) /HPF Urine Bacteria (Auto) (NEGATIVE) /HPF Calcium Oxalate Crystal (NEGATIVE) /HPF Urine Mucus (Auto) (NEGATIVE) /HPF Urine Culture Reflexed (NO) Urine Glucose (NEGATIVE) mg/dL Salicylates (2-20) mg/dL Urine Opiates Level (NEGATIVE) Ur Methadone (NEGATIVE) Acetaminophen (10-30) ug/ml Urine Barbiturates (NEGATIVE) Ur Phencyclidine (PCP) (NEGATIVE) Urine Amphetamine (NEGATIVE) U Benzodiazepine Level (NEGATIVE) Urine Cocaine (NEGATIVE) Urine Marijuana (THC) (NEGATIVE) Ethyl Alcohol (0-10) mg/dL Slides for Path Review 08/30/20 08/30/20 08/30/20 Range/Units 19:12 19:16 19:20 WBC 8.4 (4.0-10.5) K/mm3 RBC 6.20 H* (4.1-5.6) M/mm3 Hgb 19.3 H (12.5-18.0) gm/dl Hct 55.0 H (42-50) % MCV 88.7 (78-100) fl MCH 31.1 (26-32) pg MCHC 35.1 (32-36) g/dl RDW 16.8 H (11.5-14.0) % Plt Count 128 L (150-450) K/mm3 MPV 12.4 H (7.5-11.0) fl Gran % 57.1 (36.0-66.0) % Eos # (Auto) 0.19 (0-0.5) Absolute Lymphs (auto) 2.25 (1.0-4.6) Absolute Monos (auto) 1.06 (0.0-1.3) Lymphocytes % 26.9 (24.0-44.0) % Monocytes % 12.7 H (0.0-12.0) % Eosinophils % 2.3 (0.00-5.0) % Basophils % 1.0 (0.0-0.4) % Absolute Granulocytes 4.77 (1.4-6.9) Basophils # 0.08 (0-0.4) PT (8.83-12.87) SECONDS INR (0.8-3.0) APTT (24.1-36.1) SECONDS Puncture Site pCO2 (35-45) mmHg pO2 (75-100) mmHg Base Excess (-2.0-2.0) O2 Saturation (94-100) g/dF ABG pH (7.35-7.45) ABG HCO3 (22-28) ABG O2 Sat (Measured) (95-100) % Gideon Test A-a Gradient a/A Ratio Hemoglobin Carboxyhemoglobin (0.0-6.9) % THgb Methemoglobin (1.4-1.5) % Temperature C POC O2 Flow Rate % Sodium (137-145) mmol/L Potassium (3.5-5.1) mmol/L Chloride (98-107) mmol/L Carbon Dioxide (22-30) mmol/L Anion Gap (5-15) MEQ/L BUN (9-20) mg/dL Creatinine (0.66-1.25) mg/dL Estimated GFR ML/MIN Glucose (74-106) mg/dL POC Glucometer (74 to 106) mg/dL Lactic Acid (0.4-2.0) Calcium (8.4-10.2) mg/dL Magnesium (1.6-2.3) mg/dL Total Bilirubin (0.2-1.3) mg/dL AST (17-59) U/L ALT (0-50) U/L Alkaline Phosphatase (38-126) U/L Ammonia (9-30) umol/L Troponin I (0.000-0.034) ng/mL Serum Total Protein (6.3-8.2) g/dL Albumin (3.5-5.0) g/dL Lipase (23-300) U/L Urine Color KIERA (YELLOW) Urine Appearance CLOUDY (CLEAR) Urine pH 5.0 (5-6) Ur Specific [place] 1.029 (1.005-1.025) Urine Protein 100 (Negative) Urine Ketones TRACE (NEGATIVE) Urine Blood NEGATIVE (0-5) Christopher/ul Urine Nitrite NEGATIVE (NEGATIVE) Urine Bilirubin NEGATIVE (NEGATIVE) Urine Urobilinogen 4 (0-1) mg/dL Ur Leukocyte Esterase NEGATIVE (NEGATIVE) Urine WBC (Auto) 6-10 (0-5) /HPF Urine RBC (Auto) 11-15 (0-2) /HPF U Hyaline Cast (Auto) 3-5 (0-2) /LPF U Epithel Cells (Auto) FEW (FEW) /HPF Urine Bacteria (Auto) NONE (NEGATIVE) /HPF Calcium Oxalate Crystal 11-25 (NEGATIVE) /HPF Urine Mucus (Auto) SLIGHT (NEGATIVE) /HPF Urine Culture Reflexed NO (NO) Urine Glucose NEGATIVE (NEGATIVE) mg/dL Salicylates (2-20) mg/dL Urine Opiates Level NEGATIVE (NEGATIVE) Ur Methadone NEGATIVE (NEGATIVE) Acetaminophen (10-30) ug/ml Urine Barbiturates NEGATIVE (NEGATIVE) Ur Phencyclidine (PCP) NEGATIVE (NEGATIVE) Urine Amphetamine NEGATIVE (NEGATIVE) U Benzodiazepine Level NEGATIVE (NEGATIVE) Urine Cocaine NEGATIVE (NEGATIVE) Urine Marijuana (THC) POSITIVE (NEGATIVE) Ethyl Alcohol (0-10) mg/dL Slides for Path Review 08/30/20 08/30/20 08/30/20 Range/Units 19:20 19:20 19:20 WBC (4.0-10.5) K/mm3 RBC (4.1-5.6) M/mm3 Hgb (12.5-18.0) gm/dl Hct (42-50) % MCV (78-100) fl MCH (26-32) pg MCHC (32-36) g/dl RDW (11.5-14.0) % Plt Count (150-450) K/mm3 MPV (7.5-11.0) fl Gran % (36.0-66.0) % Eos # (Auto) (0-0.5) Absolute Lymphs (auto) (1.0-4.6) Absolute Monos (auto) (0.0-1.3) Lymphocytes % (24.0-44.0) % Monocytes % (0.0-12.0) % Eosinophils % (0.00-5.0) % Basophils % (0.0-0.4) % Absolute Granulocytes (1.4-6.9) Basophils # (0-0.4) PT (8.83-12.87) SECONDS INR (0.8-3.0) APTT (24.1-36.1) SECONDS Puncture Site pCO2 (35-45) mmHg pO2 (75-100) mmHg Base Excess (-2.0-2.0) O2 Saturation (94-100) g/dF ABG pH (7.35-7.45) ABG HCO3 (22-28) ABG O2 Sat (Measured) (95-100) % Gideon Test A-a Gradient a/A Ratio Hemoglobin Carboxyhemoglobin (0.0-6.9) % THgb Methemoglobin (1.4-1.5) % Temperature C POC O2 Flow Rate % Sodium 137 (137-145) mmol/L Potassium 3.5 (3.5-5.1) mmol/L Chloride 107 (98-107) mmol/L Carbon Dioxide 24 (22-30) mmol/L Anion Gap 9.5 (5-15) MEQ/L BUN 14 (9-20) mg/dL Creatinine 0.58 L (0.66-1.25) mg/dL Estimated GFR > 60.0 ML/MIN Glucose 122 H (74-106) mg/dL POC Glucometer (74 to 106) mg/dL Lactic Acid (0.4-2.0) Calcium 9.3 (8.4-10.2) mg/dL Magnesium (1.6-2.3) mg/dL Total Bilirubin 1.00 (0.2-1.3) mg/dL AST 39 (17-59) U/L ALT 30 (0-50) U/L Alkaline Phosphatase 123 (38-126) U/L Ammonia (9-30) umol/L Troponin I < 0.012 (0.000-0.034) ng/mL Serum Total Protein 6.9 (6.3-8.2) g/dL Albumin 3.5 (3.5-5.0) g/dL Lipase 162 (23-300) U/L Urine Color (YELLOW) Urine Appearance (CLEAR) Urine pH (5-6) Ur Specific [place] (1.005-1.025) Urine Protein (Negative) Urine Ketones (NEGATIVE) Urine Blood (0-5) Christopher/ul Urine Nitrite (NEGATIVE) Urine Bilirubin (NEGATIVE) Urine Urobilinogen (0-1) mg/dL Ur Leukocyte Esterase (NEGATIVE) Urine WBC (Auto) (0-5) /HPF Urine RBC (Auto) (0-2) /HPF U Hyaline Cast (Auto) (0-2) /LPF U Epithel Cells (Auto) (FEW) /HPF Urine Bacteria (Auto) (NEGATIVE) /HPF Calcium Oxalate Crystal (NEGATIVE) /HPF Urine Mucus (Auto) (NEGATIVE) /HPF Urine Culture Reflexed (NO) Urine Glucose (NEGATIVE) mg/dL Salicylates < 1.0 L (2-20) mg/dL Urine Opiates Level (NEGATIVE) Ur Methadone (NEGATIVE) Acetaminophen < 10 L (10-30) ug/ml Urine Barbiturates (NEGATIVE) Ur Phencyclidine (PCP) (NEGATIVE) Urine Amphetamine (NEGATIVE) U Benzodiazepine Level (NEGATIVE) Urine Cocaine (NEGATIVE) Urine Marijuana (THC) (NEGATIVE) Ethyl Alcohol < 10 (0-10) mg/dL Slides for Path Review 08/30/20 08/30/20 08/30/20 Range/Units 19:40 19:53 19:53 WBC (4.0-10.5) K/mm3 RBC (4.1-5.6) M/mm3 Hgb (12.5-18.0) gm/dl Hct (42-50) % MCV (78-100) fl MCH (26-32) pg MCHC (32-36) g/dl RDW (11.5-14.0) % Plt Count (150-450) K/mm3 MPV (7.5-11.0) fl Gran % (36.0-66.0) % Eos # (Auto) (0-0.5) Absolute Lymphs (auto) (1.0-4.6) Absolute Monos (auto) (0.0-1.3) Lymphocytes % (24.0-44.0) % Monocytes % (0.0-12.0) % Eosinophils % (0.00-5.0) % Basophils % (0.0-0.4) % Absolute Granulocytes (1.4-6.9) Basophils # (0-0.4) PT (8.83-12.87) SECONDS INR (0.8-3.0) APTT (24.1-36.1) SECONDS Puncture Site RIGHT BRACHIAL pCO2 36 (35-45) mmHg pO2 76 (75-100) mmHg Base Excess 1.3 (-2.0-2.0) O2 Saturation 89.0 L (94-100) g/dF ABG pH 7.45 (7.35-7.45) ABG HCO3 25.0 (22-28) ABG O2 Sat (Measured) 97.1 (95-100) % Gideon Test NO A-a Gradient 29 a/A Ratio 0.72 Hemoglobin 18.9 Carboxyhemoglobin 7.0 H* (0.0-6.9) % THgb Methemoglobin 1.3 L (1.4-1.5) % Temperature 37.0 C POC O2 Flow Rate 21 % Sodium (137-145) mmol/L Potassium 3.2 L (3.5-5.1) mmol/L Chloride (98-107) mmol/L Carbon Dioxide (22-30) mmol/L Anion Gap (5-15) MEQ/L BUN (9-20) mg/dL Creatinine (0.66-1.25) mg/dL Estimated GFR ML/MIN Glucose (74-106) mg/dL POC Glucometer (74 to 106) mg/dL Lactic Acid 1.2 (0.4-2.0) Calcium (8.4-10.2) mg/dL Magnesium (1.6-2.3) mg/dL Total Bilirubin (0.2-1.3) mg/dL AST (17-59) U/L ALT (0-50) U/L Alkaline Phosphatase (38-126) U/L Ammonia 22 (9-30) umol/L Troponin I (0.000-0.034) ng/mL Serum Total Protein (6.3-8.2) g/dL Albumin (3.5-5.0) g/dL Lipase (23-300) U/L Urine Color (YELLOW) Urine Appearance (CLEAR) Urine pH (5-6) Ur Specific [place] (1.005-1.025) Urine Protein (Negative) Urine Ketones (NEGATIVE) Urine Blood (0-5) Christopher/ul Urine Nitrite (NEGATIVE) Urine Bilirubin (NEGATIVE) Urine Urobilinogen (0-1) mg/dL Ur Leukocyte Esterase (NEGATIVE) Urine WBC (Auto) (0-5) /HPF Urine RBC (Auto) (0-2) /HPF U Hyaline Cast (Auto) (0-2) /LPF U Epithel Cells (Auto) (FEW) /HPF Urine Bacteria (Auto) (NEGATIVE) /HPF Calcium Oxalate Crystal (NEGATIVE) /HPF Urine Mucus (Auto) (NEGATIVE) /HPF Urine Culture Reflexed (NO) Urine Glucose (NEGATIVE) mg/dL Salicylates (2-20) mg/dL Urine Opiates Level (NEGATIVE) Ur Methadone (NEGATIVE) Acetaminophen (10-30) ug/ml Urine Barbiturates (NEGATIVE) Ur Phencyclidine (PCP) (NEGATIVE) Urine Amphetamine (NEGATIVE) U Benzodiazepine Level (NEGATIVE) Urine Cocaine (NEGATIVE) Urine Marijuana (THC) (NEGATIVE) Ethyl Alcohol (0-10) mg/dL Slides for Path Review 08/30/20 08/31/20 08/31/20 Range/Units 22:05 01:10 04:10 WBC (4.0-10.5) K/mm3 RBC (4.1-5.6) M/mm3 Hgb (12.5-18.0) gm/dl Hct (42-50) % MCV (78-100) fl MCH (26-32) pg MCHC (32-36) g/dl RDW (11.5-14.0) % Plt Count (150-450) K/mm3 MPV (7.5-11.0) fl Gran % (36.0-66.0) % Eos # (Auto) (0-0.5) Absolute Lymphs (auto) (1.0-4.6) Absolute Monos (auto) (0.0-1.3) Lymphocytes % (24.0-44.0) % Monocytes % (0.0-12.0) % Eosinophils % (0.00-5.0) % Basophils % (0.0-0.4) % Absolute Granulocytes (1.4-6.9) Basophils # (0-0.4) PT (8.83-12.87) SECONDS INR (0.8-3.0) APTT (24.1-36.1) SECONDS Puncture Site pCO2 (35-45) mmHg pO2 (75-100) mmHg Base Excess (-2.0-2.0) O2 Saturation (94-100) g/dF ABG pH (7.35-7.45) ABG HCO3 (22-28) ABG O2 Sat (Measured) (95-100) % Gideon Test A-a Gradient a/A Ratio Hemoglobin Carboxyhemoglobin (0.0-6.9) % THgb Methemoglobin (1.4-1.5) % Temperature C POC O2 Flow Rate % Sodium (137-145) mmol/L Potassium (3.5-5.1) mmol/L Chloride (98-107) mmol/L Carbon Dioxide (22-30) mmol/L Anion Gap (5-15) MEQ/L BUN (9-20) mg/dL Creatinine (0.66-1.25) mg/dL Estimated GFR ML/MIN Glucose (74-106) mg/dL POC Glucometer (74 to 106) mg/dL Lactic Acid (0.4-2.0) Calcium (8.4-10.2) mg/dL Magnesium (1.6-2.3) mg/dL Total Bilirubin (0.2-1.3) mg/dL AST (17-59) U/L ALT (0-50) U/L Alkaline Phosphatase (38-126) U/L Ammonia (9-30) umol/L Troponin I < 0.012 < 0.012 < 0.012 (0.000-0.034) ng/mL Serum Total Protein (6.3-8.2) g/dL Albumin (3.5-5.0) g/dL Lipase (23-300) U/L Urine Color (YELLOW) Urine Appearance (CLEAR) Urine pH (5-6) Ur Specific [place] (1.005-1.025) Urine Protein (Negative) Urine Ketones (NEGATIVE) Urine Blood (0-5) Christopher/ul Urine Nitrite (NEGATIVE) Urine Bilirubin (NEGATIVE) Urine Urobilinogen (0-1) mg/dL Ur Leukocyte Esterase (NEGATIVE) Urine WBC (Auto) (0-5) /HPF Urine RBC (Auto) (0-2) /HPF U Hyaline Cast (Auto) (0-2) /LPF U Epithel Cells (Auto) (FEW) /HPF Urine Bacteria (Auto) (NEGATIVE) /HPF Calcium Oxalate Crystal (NEGATIVE) /HPF Urine Mucus (Auto) (NEGATIVE) /HPF Urine Culture Reflexed (NO) Urine Glucose (NEGATIVE) mg/dL Salicylates (2-20) mg/dL Urine Opiates Level (NEGATIVE) Ur Methadone (NEGATIVE) Acetaminophen (10-30) ug/ml Urine Barbiturates (NEGATIVE) Ur Phencyclidine (PCP) (NEGATIVE) Urine Amphetamine (NEGATIVE) U Benzodiazepine Level (NEGATIVE) Urine Cocaine (NEGATIVE) Urine Marijuana (THC) (NEGATIVE) Ethyl Alcohol (0-10) mg/dL Slides for Path Review 08/31/20 08/31/20 Range/Units 04:10 04:10 WBC 7.7 (4.0-10.5) K/mm3 RBC 5.73 H (4.1-5.6) M/mm3 Hgb 17.6 (12.5-18.0) gm/dl Hct 51.3 H (42-50) % MCV 89.5 (78-100) fl MCH 30.7 (26-32) pg MCHC 34.3 (32-36) g/dl RDW 16.2 H (11.5-14.0) % Plt Count 91 L (150-450) K/mm3 MPV 11.2 H (7.5-11.0) fl Gran % 54.8 (36.0-66.0) % Eos # (Auto) 0.16 (0-0.5) Absolute Lymphs (auto) 2.29 (1.0-4.6) Absolute Monos (auto) 1.00 (0.0-1.3) Lymphocytes % 29.6 (24.0-44.0) % Monocytes % 12.9 H (0.0-12.0) % Eosinophils % 2.1 (0.00-5.0) % Basophils % 0.6 (0.0-0.4) % Absolute Granulocytes 4.24 (1.4-6.9) Basophils # 0.05 (0-0.4) PT (8.83-12.87) SECONDS INR (0.8-3.0) APTT (24.1-36.1) SECONDS Puncture Site pCO2 (35-45) mmHg pO2 (75-100) mmHg Base Excess (-2.0-2.0) O2 Saturation (94-100) g/dF ABG pH (7.35-7.45) ABG HCO3 (22-28) ABG O2 Sat (Measured) (95-100) % Gideon Test A-a Gradient a/A Ratio Hemoglobin Carboxyhemoglobin (0.0-6.9) % THgb Methemoglobin (1.4-1.5) % Temperature C POC O2 Flow Rate % Sodium 136 L (137-145) mmol/L Potassium 3.2 L (3.5-5.1) mmol/L Chloride 108 H (98-107) mmol/L Carbon Dioxide 23 (22-30) mmol/L Anion Gap 7.7 (5-15) MEQ/L BUN 10 (9-20) mg/dL Creatinine 0.47 L (0.66-1.25) mg/dL Estimated GFR > 60.0 ML/MIN Glucose 111 H (74-106) mg/dL POC Glucometer (74 to 106) mg/dL Lactic Acid (0.4-2.0) Calcium 8.7 (8.4-10.2) mg/dL Magnesium (1.6-2.3) mg/dL Total Bilirubin 1.30 (0.2-1.3) mg/dL AST 42 (17-59) U/L ALT 27 (0-50) U/L Alkaline Phosphatase 88 (38-126) U/L Ammonia (9-30) umol/L Troponin I (0.000-0.034) ng/mL Serum Total Protein 6.3 (6.3-8.2) g/dL Albumin 3.2 L (3.5-5.0) g/dL Lipase (23-300) U/L Urine Color (YELLOW) Urine Appearance (CLEAR) Urine pH (5-6) Ur Specific [place] (1.005-1.025) Urine Protein (Negative) Urine Ketones (NEGATIVE) Urine Blood (0-5) Christopher/ul Urine Nitrite (NEGATIVE) Urine Bilirubin (NEGATIVE) Urine Urobilinogen (0-1) mg/dL Ur Leukocyte Esterase (NEGATIVE) Urine WBC (Auto) (0-5) /HPF Urine RBC (Auto) (0-2) /HPF U Hyaline Cast (Auto) (0-2) /LPF U Epithel Cells (Auto) (FEW) /HPF Urine Bacteria (Auto) (NEGATIVE) /HPF Calcium Oxalate Crystal (NEGATIVE) /HPF Urine Mucus (Auto) (NEGATIVE) /HPF Urine Culture Reflexed (NO) Urine Glucose (NEGATIVE) mg/dL Salicylates (2-20) mg/dL Urine Opiates Level (NEGATIVE) Ur Methadone (NEGATIVE) Acetaminophen (10-30) ug/ml Urine Barbiturates (NEGATIVE) Ur Phencyclidine (PCP) (NEGATIVE) Urine Amphetamine (NEGATIVE) U Benzodiazepine Level (NEGATIVE) Urine Cocaine (NEGATIVE) Urine Marijuana (THC) (NEGATIVE) Ethyl Alcohol (0-10) mg/dL Slides for Path Review YES Accuchecks Date 08/30/20 Time 19:11 - Radiology Impressions Radiology Exams & Impressions: Radiology Procedures Category Date Time Status HEAD WITHOUT CONTRAST [CT] Stat Exams 08/30/20 19:13 Completed - Other Procedures and Tests Respiratory Therapy 08/31/20 01:51 Respiratory Therapy Assessment DAILY Assessment/Plan (1) Atrial fibrillation with rapid ventricular response Current Visit: Yes Status: Acute Assessment & Plan: Chief Complaint Diagnosis Afib with RVR Allergies Allergy/AdvReac Type Severity Reaction Status Date / Time nitrofurantoin Allergy Verified 08/30/20 18:43 [From Macrobid] Vital Signs (Last 24 hours) Temp Pulse Resp BP BP Pulse Ox 08/31/20 07:06 90 16 94 L 08/31/20 06:00 93 H 18 122/87 939 H 08/31/20 05:00 99.0 F 88 18 135/84 94 L 08/31/20 04:00 92 H 08/31/20 03:38 92 H 17 131/94 08/31/20 03:00 94 H 17 131/94 94 L 08/31/20 02:00 99.0 F 95 H 19 117/70 96 08/31/20 01:51 96 H 14 97 08/31/20 01:00 98 H 17 136/97 93 L 08/31/20 00:00 98.7 F 98 H 19 147/80 95 08/30/20 23:51 98.7 F 98 H 17 129/98 95 08/30/20 23:38 93 H 18 147/80 08/30/20 23:12 95 08/30/20 23:00 99 F 98 H 20 120/89 94 L 08/30/20 22:49 95 08/30/20 22:26 108 H 18 148/84 96 08/30/20 20:29 128 H 20 134/71 08/30/20 20:26 128 H 20 134/71 95 08/30/20 20:05 124 H 18 104/82 94 L 08/30/20 19:19 140 H 20 134/104 08/30/20 18:49 98.9 F 127 H 18 126/90 95 Home Medications Medication Instructions Recorded Confirmed Last Taken Type Fluoxetine HCl 20 mg [Prozac 20 20 mg PO DAILY 08/31/20 08/31/20 Unknown History MG] Current Medications Generic Name Dose Route Start Last Admin Trade Name Freq PRN Reason Stop Dose Admin Albuterol Sulfate 4 puff 08/31/20 07:00 08/31/20 07:05 Ventolin Common Canister IH 09/30/20 06:59 4 puff QIDRT MENEDL Administration Diphenhydramine HCl 50 mg 08/31/20 01:21 Benadryl 25 Mg Capsule PO 09/30/20 01:20 HS PRN PRN INSOMNIA Sodium Chloride 1,000 mls @ 100 mls/hr 08/30/20 19:15 08/31/20 05:48 Sodium Chloride 0.9% 1000 Ml IV 09/29/20 19:14 100 mls/hr .Q10H MENDEL Administration Diltiazem HCl 100 mls @ 10 mls/hr 08/30/20 20:22 08/31/20 03:38 Cardizem Drip 100 Mg/100 Ml D5w IV 09/29/20 20:21 10 mg/hr .Q10H PRN 10 mls/hr HEART RATE/ A-FIB Administration Protocol 10 MG/HR Magnesium Sulfate/Dextrose 100 mls @ 100 mls/hr 08/30/20 22:15 08/31/20 00:01 Magnesium 1 Gm / 100 Ml D5w IV 08/31/20 00:14 100 mls/hr Q1H MENDEL Administration Morphine Sulfate 2 mg 08/30/20 22:49 Morphine Sulfate 2 Mg Inj IV 09/04/20 22:48 Q4H PRN PRN PAIN Ondansetron HCl 4 mg 08/30/20 22:49 Zofran 4 Mg/2 Ml Vial IV 09/29/20 22:48 Q6H PRN PRN NAUSEA/VOMITING Discontinued Medications Generic Name Dose Route Start Last Admin Trade Name Freq PRN Reason Stop Dose Admin Diltiazem HCl 15 mg 08/30/20 20:23 08/30/20 20:29 Cardizem Iv 50 Mg/10 Ml IV 08/30/20 20:24 15 mg STAT ONE Administration Diltiazem HCl Confirm 08/30/20 20:28 Cardizem Iv 50 Mg/10 Ml Administered 08/30/20 20:29 Dose 50 mg IV .STK-MED ONE Diphenhydramine HCl 25 mg 08/30/20 22:42 08/31/20 01:40 Benadryl 50 Mg/Ml IV 08/30/20 22:43 Not Given STAT ONE Enoxaparin Sodium 80 mg 08/30/20 20:27 08/30/20 20:38 Enoxaparin Sodium SQ 08/30/20 20:28 80 mg STAT ONE Administration Enoxaparin Sodium Confirm 08/30/20 20:38 Enoxaparin Sodium Administered 08/30/20 20:39 Dose 80 mg SQ .STK-MED ONE Ceftriaxone Sodium/Dextrose 1 g in 50 mls @ 100 mls/hr 08/30/20 21:47 08/30/20 22:22 Rocephin 1 Gm-D5w 50 Ml Bag IV 08/30/20 22:16 100 mls/hr STAT STA 100 mls/hr Administration Ceftriaxone Sodium/Dextrose Confirm 08/30/20 22:10 Rocephin 1 Gm-D5w 50 Ml Bag Administered 08/30/20 22:11 Dose 1 g in 50 mls @ ud IV .STK-MED ONE Magnesium Sulfate 2 gm 08/30/20 20:58 Magnesium Sulfate 1 Gm/2 Ml Vial IV 08/30/20 20:59 ONCE STA Magnesium Sulfate Confirm 08/30/20 22:10 Magnesium Sulfate 1 Gm/2 Ml Vial Administered 08/30/20 22:11 Dose 1 gm .ROUTE .STK-MED ONE Intake & Output (Last 24 hours) 08/28/20 08/29/20 08/30/20 08/31/20 11:59 11:59 11:59 11:59 Intake Total 3598 Output Total 800 Balance 2798 Weight 290 kg Laboratory Results (Last 24 hours) 08/31/20 08/31/20 08/31/20 06:50 04:10 04:10 WBC 7.7 RBC 5.73 H Hgb 17.6 Hct 51.3 H MCV 89.5 MCH 30.7 MCHC 34.3 RDW 16.2 H Plt Count 91 L MPV 11.2 H Gran % 54.8 Eos # (Auto) 0.16 Absolute Lymphs (auto) 2.29 Absolute Monos (auto) 1.00 Lymphocytes % 29.6 Monocytes % 12.9 H Eosinophils % 2.1 Basophils % 0.6 Absolute Granulocytes 4.24 Basophils # 0.05 PT INR APTT Puncture Site pCO2 pO2 Base Excess O2 Saturation ABG pH ABG HCO3 ABG O2 Sat (Measured) Gideon Test A-a Gradient a/A Ratio Hemoglobin Carboxyhemoglobin Methemoglobin Temperature POC O2 Flow Rate Sodium 136 L Potassium 3.2 L Chloride 108 H Carbon Dioxide 23 Anion Gap 7.7 BUN 10 Creatinine 0.47 L Estimated GFR > 60.0 Glucose 111 H POC Glucometer Lactic Acid Calcium 8.7 Magnesium Total Bilirubin 1.30 AST 42 ALT 27 Alkaline Phosphatase 88 Ammonia Troponin I < 0.012 Serum Total Protein 6.3 Albumin 3.2 L Lipase Urine Color Urine Appearance Urine pH Ur Specific [place] Urine Protein Urine Ketones Urine Blood Urine Nitrite Urine Bilirubin Urine Urobilinogen Ur Leukocyte Esterase Urine WBC (Auto) Urine RBC (Auto) U Hyaline Cast (Auto) U Epithel Cells (Auto) Urine Bacteria (Auto) Calcium Oxalate Crystal Urine Mucus (Auto) Urine Culture Reflexed Urine Glucose Salicylates Urine Opiates Level Ur Methadone Acetaminophen Urine Barbiturates Ur Phencyclidine (PCP) Urine Amphetamine U Benzodiazepine Level Urine Cocaine Urine Marijuana (THC) Ethyl Alcohol Slides for Path Review YES 08/31/20 08/31/20 08/30/20 04:10 01:10 22:05 WBC RBC Hgb Hct MCV MCH MCHC RDW Plt Count MPV Gran % Eos # (Auto) Absolute Lymphs (auto) Absolute Monos (auto) Lymphocytes % Monocytes % Eosinophils % Basophils % Absolute Granulocytes Basophils # PT INR APTT Puncture Site pCO2 pO2 Base Excess O2 Saturation ABG pH ABG HCO3 ABG O2 Sat (Measured) Gideon Test A-a Gradient a/A Ratio Hemoglobin Carboxyhemoglobin Methemoglobin Temperature POC O2 Flow Rate Sodium Potassium Chloride Carbon Dioxide Anion Gap BUN Creatinine Estimated GFR Glucose POC Glucometer Lactic Acid Calcium Magnesium Total Bilirubin AST ALT Alkaline Phosphatase Ammonia Troponin I < 0.012 < 0.012 < 0.012 Serum Total Protein Albumin Lipase Urine Color Urine Appearance Urine pH Ur Specific [place] Urine Protein Urine Ketones Urine Blood Urine Nitrite Urine Bilirubin Urine Urobilinogen Ur Leukocyte Esterase Urine WBC (Auto) Urine RBC (Auto) U Hyaline Cast (Auto) U Epithel Cells (Auto) Urine Bacteria (Auto) Calcium Oxalate Crystal Urine Mucus (Auto) Urine Culture Reflexed Urine Glucose Salicylates Urine Opiates Level Ur Methadone Acetaminophen Urine Barbiturates Ur Phencyclidine (PCP) Urine Amphetamine U Benzodiazepine Level Urine Cocaine Urine Marijuana (THC) Ethyl Alcohol Slides for Path Review 08/30/20 08/30/20 08/30/20 19:53 19:53 19:40 WBC RBC Hgb Hct MCV MCH MCHC RDW Plt Count MPV Gran % Eos # (Auto) Absolute Lymphs (auto) Absolute Monos (auto) Lymphocytes % Monocytes % Eosinophils % Basophils % Absolute Granulocytes Basophils # PT INR APTT Puncture Site RIGHT BRACHIAL pCO2 36 pO2 76 Base Excess 1.3 O2 Saturation 89.0 L ABG pH 7.45 ABG HCO3 25.0 ABG O2 Sat (Measured) 97.1 Gideon Test NO A-a Gradient 29 a/A Ratio 0.72 Hemoglobin 18.9 Carboxyhemoglobin 7.0 H* Methemoglobin 1.3 L Temperature 37.0 POC O2 Flow Rate 21 Sodium Potassium 3.2 L Chloride Carbon Dioxide Anion Gap BUN Creatinine Estimated GFR Glucose POC Glucometer Lactic Acid 1.2 Calcium Magnesium Total Bilirubin AST ALT Alkaline Phosphatase Ammonia 22 Troponin I Serum Total Protein Albumin Lipase Urine Color Urine Appearance Urine pH Ur Specific [place] Urine Protein Urine Ketones Urine Blood Urine Nitrite Urine Bilirubin Urine Urobilinogen Ur Leukocyte Esterase Urine WBC (Auto) Urine RBC (Auto) U Hyaline Cast (Auto) U Epithel Cells (Auto) Urine Bacteria (Auto) Calcium Oxalate Crystal Urine Mucus (Auto) Urine Culture Reflexed Urine Glucose Salicylates Urine Opiates Level Ur Methadone Acetaminophen Urine Barbiturates Ur Phencyclidine (PCP) Urine Amphetamine U Benzodiazepine Level Urine Cocaine Urine Marijuana (THC) Ethyl Alcohol Slides for Path Review 08/30/20 08/30/20 08/30/20 19:20 19:20 19:20 WBC RBC Hgb Hct MCV MCH MCHC RDW Plt Count MPV Gran % Eos # (Auto) Absolute Lymphs (auto) Absolute Monos (auto) Lymphocytes % Monocytes % Eosinophils % Basophils % Absolute Granulocytes Basophils # PT INR APTT Puncture Site pCO2 pO2 Base Excess O2 Saturation ABG pH ABG HCO3 ABG O2 Sat (Measured) Gideon Test A-a Gradient a/A Ratio Hemoglobin Carboxyhemoglobin Methemoglobin Temperature POC O2 Flow Rate Sodium 137 Potassium 3.5 Chloride 107 Carbon Dioxide 24 Anion Gap 9.5 BUN 14 Creatinine 0.58 L Estimated GFR > 60.0 Glucose 122 H POC Glucometer Lactic Acid Calcium 9.3 Magnesium Total Bilirubin 1.00 AST 39 ALT 30 Alkaline Phosphatase 123 Ammonia Troponin I < 0.012 Serum Total Protein 6.9 Albumin 3.5 Lipase 162 Urine Color Urine Appearance Urine pH Ur Specific [place] Urine Protein Urine Ketones Urine Blood Urine Nitrite Urine Bilirubin Urine Urobilinogen Ur Leukocyte Esterase Urine WBC (Auto) Urine RBC (Auto) U Hyaline Cast (Auto) U Epithel Cells (Auto) Urine Bacteria (Auto) Calcium Oxalate Crystal Urine Mucus (Auto) Urine Culture Reflexed Urine Glucose Salicylates < 1.0 L Urine Opiates Level Ur Methadone Acetaminophen < 10 L Urine Barbiturates Ur Phencyclidine (PCP) Urine Amphetamine U Benzodiazepine Level Urine Cocaine Urine Marijuana (THC) Ethyl Alcohol < 10 Slides for Path Review 08/30/20 08/30/20 08/30/20 19:20 19:16 19:12 WBC 8.4 RBC 6.20 H* Hgb 19.3 H Hct 55.0 H MCV 88.7 MCH 31.1 MCHC 35.1 RDW 16.8 H Plt Count 128 L MPV 12.4 H Gran % 57.1 Eos # (Auto) 0.19 Absolute Lymphs (auto) 2.25 Absolute Monos (auto) 1.06 Lymphocytes % 26.9 Monocytes % 12.7 H Eosinophils % 2.3 Basophils % 1.0 Absolute Granulocytes 4.77 Basophils # 0.08 PT INR APTT Puncture Site pCO2 pO2 Base Excess O2 Saturation ABG pH ABG HCO3 ABG O2 Sat (Measured) Gideon Test A-a Gradient a/A Ratio Hemoglobin Carboxyhemoglobin Methemoglobin Temperature POC O2 Flow Rate Sodium Potassium Chloride Carbon Dioxide Anion Gap BUN Creatinine Estimated GFR Glucose POC Glucometer Lactic Acid Calcium Magnesium Total Bilirubin AST ALT Alkaline Phosphatase Ammonia Troponin I Serum Total Protein Albumin Lipase Urine Color KIERA Urine Appearance CLOUDY Urine pH 5.0 Ur Specific [place] 1.029 Urine Protein 100 Urine Ketones TRACE Urine Blood NEGATIVE Urine Nitrite NEGATIVE Urine Bilirubin NEGATIVE Urine Urobilinogen 4 Ur Leukocyte Esterase NEGATIVE Urine WBC (Auto) 6-10 Urine RBC (Auto) 11-15 U Hyaline Cast (Auto) 3-5 U Epithel Cells (Auto) FEW Urine Bacteria (Auto) NONE Calcium Oxalate Crystal 11-25 Urine Mucus (Auto) SLIGHT Urine Culture Reflexed NO Urine Glucose NEGATIVE Salicylates Urine Opiates Level NEGATIVE Ur Methadone NEGATIVE Acetaminophen Urine Barbiturates NEGATIVE Ur Phencyclidine (PCP) NEGATIVE Urine Amphetamine NEGATIVE U Benzodiazepine Level NEGATIVE Urine Cocaine NEGATIVE Urine Marijuana (THC) POSITIVE Ethyl Alcohol Slides for Path Review 08/30/20 08/30/20 08/30/20 19:11 18:40 18:40 WBC RBC Hgb Hct MCV MCH MCHC RDW Plt Count MPV Gran % Eos # (Auto) Absolute Lymphs (auto) Absolute Monos (auto) Lymphocytes % Monocytes % Eosinophils % Basophils % Absolute Granulocytes Basophils # PT 14.1 H INR 1.25 APTT 32.6 Puncture Site pCO2 pO2 Base Excess O2 Saturation ABG pH ABG HCO3 ABG O2 Sat (Measured) Gideon Test A-a Gradient a/A Ratio Hemoglobin Carboxyhemoglobin Methemoglobin Temperature POC O2 Flow Rate Sodium Potassium Chloride Carbon Dioxide Anion Gap BUN Creatinine Estimated GFR Glucose POC Glucometer 119 H Lactic Acid Calcium Magnesium 1.6 Total Bilirubin AST ALT Alkaline Phosphatase Ammonia Troponin I Serum Total Protein Albumin Lipase Urine Color Urine Appearance Urine pH Ur Specific [place] Urine Protein Urine Ketones Urine Blood Urine Nitrite Urine Bilirubin Urine Urobilinogen Ur Leukocyte Esterase Urine WBC (Auto) Urine RBC (Auto) U Hyaline Cast (Auto) U Epithel Cells (Auto) Urine Bacteria (Auto) Calcium Oxalate Crystal Urine Mucus (Auto) Urine Culture Reflexed Urine Glucose Salicylates Urine Opiates Level Ur Methadone Acetaminophen Urine Barbiturates Ur Phencyclidine (PCP) Urine Amphetamine U Benzodiazepine Level Urine Cocaine Urine Marijuana (THC) Ethyl Alcohol Slides for Path Review Orders (Last 24 hours) Category Date Time Status Bedrest ROUTINE Activity 08/30/20 22:49 Active Code Status Order ROUTINE Care 08/30/20 22:49 Active EKG-ER Only STAT Care 08/30/20 19:09 Completed IV Care Q1H Care 08/30/20 22:49 Active IV Insertion STAT Care 08/30/20 19:09 Completed Neuro Checks Q4H Care 08/30/20 22:[address] in Observation ROUTINE Care 08/30/20 22:49 Active Telemetry q6h Care 08/30/20 22:49 Active V/Stol Landing Signal Officer/Discharge Plan ROUTINE Cons 08/30/20 23:38 Active Heart-Healthy Diet Diet 08/30/20 Breakfast Active HEAD WITHOUT CONTRAST [CT] Stat Exams 08/30/20 19:13 Completed ABG [ARTERIAL BLOOD GASES] Stat Lab 08/30/20 19:53 Completed ACETAMINOPHEN Stat Lab 08/30/20 19:20 Completed AMMONIA Stat Lab 08/30/20 19:40 Completed CBC W DIFF AM.LAB Lab 08/31/20 04:10 Completed CBC W DIFF Stat Lab 08/30/20 19:20 Completed CMP AM.LAB Lab 08/31/20 04:10 Completed CMP Stat Lab 08/30/20 19:20 Completed ETHYL ALCOHOL Stat Lab 08/30/20 19:20 Completed LIPASE Stat Lab 08/30/20 19:20 Completed Lactic Acid Stat Lab 08/30/20 19:53 Completed MAGNESIUM Stat Lab 08/30/20 18:40 Completed POCT GLUCOSE Stat Lab 08/30/20 19:11 Completed PROTIME WITH INR Stat Lab 08/30/20 18:40 Completed PTT Stat Lab 08/30/20 18:40 Completed SALICYLATE Stat Lab 08/30/20 19:20 Completed TROPONIN Q3H Lab 08/30/20 19:20 Completed TROPONIN Q3H Lab 08/30/20 22:05 Completed TROPONIN Q3H Lab 08/31/20 01:10 Completed TROPONIN Q3H Lab 08/31/20 04:10 Completed TROPONIN Q3H Lab 08/31/20 06:50 Completed UA W/RFX UR CULTURE Stat Lab 08/30/20 19:12 Completed Urine Triage Profile Stat Lab 08/30/20 19:16 Completed Albuterol Common Canister [Ventolin Common Canister* Med 08/31/20 07:00 Ordered ] 4 puff IH QIDRT Ceftriaxone 1 GM/50 ML PREMIX* [ROCEPHIN 1 Gm-D5w 50 ml Med 08/30/20 21:47 Discontinued Bag] 1 g in 50 ml IV STAT Ceftriaxone 1 GM/50 ML PREMIX* [ROCEPHIN 1 Gm-D5w 50 ml Med 08/30/20 22:10 Discontinued Bag] 1 g in 50 ml IV UD Diltiazem HCl 100 mg/100 ml [Cardizem Drip 100 mg/100 Med 08/30/20 20:22 Ordered ml D5w] 100 ml IV 10 mg/hr Diltiazem HCl 50 mg/10 ml [Cardizem IV 50 MG/10 ML Med 08/30/20 20:23 Discontinued *] 15 mg IV STAT ONE Diltiazem HCl 50 mg/10 ml [Cardizem IV 50 MG/10 ML Med 08/30/20 20:28 Discontinued *] 50 mg IV .STK-MED ONE Diphenhydramine HCl 25 mg [Benadryl 25 mg Capsule Med 08/31/20 01:21 Ordered ] 50 mg PO HS PRN PRN Diphenhydramine HCl 50 mg/ml [Benadryl 50 mg/ml] Med 08/30/20 22:42 Discontinued 25 mg IV STAT ONE Enoxaparin Sodium [Enoxaparin Sodium] Med 08/30/20 20:38 Discontinued 80 mg SQ .STK-MED ONE Enoxaparin Sodium [Enoxaparin Sodium] Med 08/30/20 20:27 Discontinued 80 mg SQ STAT ONE Flu Vacc [id number](6Mos Up)/Pf [Fluzone Quad Med 08/30/20 23:38 Discontinued Syringe] 60 mcg IM .ONCE ONE Magnesium Sulfate 1 gm/100 ml* [Magnesium 1 Gm / 100 Ml Med 08/30/20 22:15 Ordered D5W] 100 ml IV Q1H Magnesium Sulfate 1 gm/2 ml [Magnesium Sulfate 1 GM/ Med 08/30/20 22:10 Discontinued 2 ML VIAL] 1 gm .ROUTE .STK-MED ONE Magnesium Sulfate 1 gm/2 ml [Magnesium Sulfate 1 GM/ Med 08/30/20 20:58 Discontinued 2 ML VIAL] 2 gm IV ONCE STA Morphine Sulfate 2 mg Inj Med 08/30/20 22:49 Ordered 2 mg IV Q4H PRN PRN NaCl 0.9% 1000 ml [Sodium Chloride 0.9% 1000 ML] 1,000 Med 08/30/20 19:15 Ordered ml IV 100 mls/hr Ondansetron HCl 4 mg/2 ml [Zofran 4 MG/2 ML VIAL] Med 08/30/20 22:49 Ordered 4 mg IV Q6H PRN PRN Pulse Oximetry CONTINUOUS RT 01/01/21 22:49 Active RT Screen per Nursing Assess ONCE RT 08/31/20 00:19 Completed Respiratory Therapy Assessment DAILY RT 08/31/20 01:51 Active Smoking Cessation Education ONCE RT 08/31/20 00:19 Completed Code(s): I48.91 - UNSPECIFIED ATRIAL FIBRILLATION (2) Confusion Current Visit: Yes Status: Acute Code(s): R41.0 - DISORIENTATION, UNSPECIFIED (3) Insomnia Current Visit: Yes Status: Acute Code(s): G47.00 - INSOMNIA, UNSPECIFIED (4) Nonadherence to medication Current Visit: Yes Status: Acute Code(s): Z91.14 - PATIENT'S OTHER NONCOMPLIANCE WITH MEDICATION REGIMEN
[2020-08-31] MEDS ORDERED: LACTULOSE PO PRN (07:59)
[2020-08-31] MEDS ORDERED: NON-FORMULARY ITEM (Ondansetron Hcl [Zofran] 4 MG) PO PRN (07:59)
[2020-08-31] MEDS ORDERED: NON-FORMULARY ITEM (Potassium Chloride [Klor-Con 8] 8 MEQ) PO SCH (08:00)
[2020-08-31] MEDS ORDERED: LACTULOSE 20 GM/30ML UD CUP PO PRN (08:12)
[2020-08-31] MEDS ORDERED: ZOFRAN ODT 4 MG PO PRN (08:14)
[2020-08-31] MEDS: Cardizem CD 120 MG PO SCH ×2 (08:23→09:08)
[2020-08-31] MEDS ORDERED: MEDICATION INTERVENTION MC SCH ×2 (08:30→08:45)
[2020-08-31] MEDS: BUMEX 1 MG PO SCH ×2 (09:07→17:44)
--- NOTE | 2020-08-31 09:10 | PCM.DS ---
Discharge Summary Date of Admission: 08/30/20 22:11 Admitting Physician: KETAN ECHEVARRIA Primary Care Provider: KETAN ECHEVARRIA Allergies Allergies nitrofurantoin [From Macrobid] Allergy (Verified 08/30/20 18:43) Hospital Summary - Hospital Course Hospital Course: Chief Complaint Diagnosis Afib with RVR Allergies Allergy/AdvReac Type Severity Reaction Status Date / Time nitrofurantoin Allergy Verified 08/30/20 18:43 [From Macrobid] Vital Signs (Last 24 hours) Temp Pulse Resp BP BP Pulse Ox 08/31/20 08:00 102 H 15 119/85 08/31/20 07:06 90 16 94 L 08/31/20 07:00 98.5 F 103 H 18 122/83 94 L 08/31/20 06:00 93 H 18 122/87 939 H 08/31/20 05:00 99.0 F 88 18 135/84 94 L 08/31/20 04:00 92 H 08/31/20 03:38 92 H 17 131/94 08/31/20 03:00 94 H 17 131/94 94 L 08/31/20 02:00 99.0 F 95 H 19 117/70 96 08/31/20 01:51 96 H 14 97 08/31/20 01:00 98 H 17 136/97 93 L 08/31/20 00:00 98.7 F 98 H 19 147/80 95 08/30/20 23:51 98.7 F 98 H 17 129/98 95 08/30/20 23:38 93 H 18 147/80 08/30/20 23:12 95 08/30/20 23:00 99 F 98 H 20 120/89 94 L 08/30/20 22:49 95 08/30/20 22:26 108 H 18 148/84 96 08/30/20 20:29 128 H 20 134/71 08/30/20 20:26 128 H 20 134/71 95 08/30/20 20:05 124 H 18 104/82 94 L 08/30/20 19:19 140 H 20 134/104 08/30/20 18:49 98.9 F 127 H 18 126/90 95 Home Medications Medication Instructions Recorded Confirmed Last Taken Type Fluoxetine HCl 20 mg [Prozac 20 20 mg PO DAILY 08/31/20 08/31/20 Unknown History MG] Current Medications Generic Name Dose Route Start Last Admin Trade Name Freq PRN Reason Stop Dose Admin Albuterol Sulfate 4 puff 08/31/20 07:00 08/31/20 07:05 Ventolin Common Canister IH 09/30/20 06:59 4 puff QIDRT MENDEL Administration Bumetanide 2 mg 08/31/20 10:00 Bumex 1 Mg PO 09/30/20 09:59 BID DIURETIC MENDEL Diltiazem HCl 120 mg 08/31/20 08:07 08/31/20 08:23 Cardizem Cd 120 Mg PO 09/30/20 08:06 120 mg DAILY MENDEL Administration Diphenhydramine HCl 50 mg 08/31/20 01:21 Benadryl 25 Mg Capsule PO 09/30/20 01:20 HS PRN PRN INSOMNIA Fluoxetine HCl 20 mg 08/31/20 10:00 Prozac 20 Mg PO 09/30/20 09:59 DAILY MENDEL Sodium Chloride 1,000 mls @ 100 mls/hr 08/30/20 19:15 08/31/20 05:48 Sodium Chloride 0.9% 1000 Ml IV 09/29/20 19:14 100 mls/hr .Q10H MENDEL Administration Diltiazem HCl 100 mls @ 10 mls/hr 08/30/20 20:22 08/31/20 03:38 Cardizem Drip 100 Mg/100 Ml D5w IV 09/29/20 20:21 10 mg/hr .Q10H PRN 10 mls/hr HEART RATE/ A-FIB Administration Protocol 10 MG/HR Lactulose 10 gm 08/31/20 08:12 Lactulose 20 Gm/30ml Ud Cup PO 09/30/20 08:11 QID PRN PRN AGITATION Levothyroxine Sodium 200 mcg 08/31/20 10:00 Synthroid 100 Mcg PO 09/30/20 09:59 DAILY MENDEL Miscellaneous Information 0 each 08/31/20 08:30 Medication Intervention 09/30/20 08:29 .RN TO CLARIFY MENDEL Miscellaneous Information 0 each 08/31/20 08:45 Medication Intervention 09/30/20 08:44 .RN TO CHECK WITH PT MENDEL Morphine Sulfate 2 mg 08/30/20 22:49 Morphine Sulfate 2 Mg Inj IV 09/04/20 22:48 Q4H PRN PRN PAIN Ondansetron HCl 4 mg 08/30/20 22:49 Zofran 4 Mg/2 Ml Vial IV 09/29/20 22:48 Q6H PRN PRN NAUSEA/VOMITING Ondansetron HCl 4 mg 08/31/20 08:14 Zofran Odt 4 Mg PO 09/30/20 08:13 TID PRN PRN Propranolol HCl 40 mg 08/31/20 10:00 Inderal 20 Mg PO 09/30/20 09:59 DAILY MENDEL Discontinued Medications Generic Name Dose Route Start Last Admin Trade Name Freq PRN Reason Stop Dose Admin Diltiazem HCl 15 mg 08/30/20 20:23 08/30/20 20:29 Cardizem Iv 50 Mg/10 Ml IV 08/30/20 20:24 15 mg STAT ONE Administration Diltiazem HCl Confirm 08/30/20 20:28 Cardizem Iv 50 Mg/10 Ml Administered 08/30/20 20:29 Dose 50 mg IV .STK-MED ONE Diphenhydramine HCl 25 mg 08/30/20 22:42 08/31/20 01:40 Benadryl 50 Mg/Ml IV 08/30/20 22:43 Not Given STAT ONE Enoxaparin Sodium 80 mg 08/30/20 20:27 08/30/20 20:38 Enoxaparin Sodium SQ 08/30/20 20:28 80 mg STAT ONE Administration Enoxaparin Sodium Confirm 08/30/20 20:38 Enoxaparin Sodium Administered 08/30/20 20:39 Dose 80 mg SQ .STK-MED ONE Ceftriaxone Sodium/Dextrose 1 g in 50 mls @ 100 mls/hr 08/30/20 21:47 08/30/20 22:22 Rocephin 1 Gm-D5w 50 Ml Bag IV 08/30/20 22:16 100 mls/hr STAT STA 100 mls/hr Administration Ceftriaxone Sodium/Dextrose Confirm 08/30/20 22:10 Rocephin 1 Gm-D5w 50 Ml Bag Administered 08/30/20 22:11 Dose 1 g in 50 mls @ ud IV .STK-MED ONE Magnesium Sulfate/Dextrose 100 mls @ 100 mls/hr 08/30/20 22:15 08/31/20 00:01 Magnesium 1 Gm / 100 Ml D5w IV 08/31/20 00:14 100 mls/hr Q1H MENDEL Administration Magnesium Sulfate 2 gm 08/30/20 20:58 Magnesium Sulfate 1 Gm/2 Ml Vial IV 08/30/20 20:59 ONCE STA Magnesium Sulfate Confirm 08/30/20 22:10 Magnesium Sulfate 1 Gm/2 Ml Vial Administered 08/30/20 22:11 Dose 1 gm .ROUTE .STK-MED ONE Rifaximin 550 mg 08/31/20 10:00 Xifaxan 200 Mg PO 09/30/20 09:59 BID MENDEL Intake & Output (Last 24 hours) 08/28/20 08/29/20 08/30/20 08/31/20 11:59 11:59 11:59 11:59 Intake Total 3598 Output Total 800 Balance 2798 Weight 290 kg Laboratory Results (Last 24 hours) 08/31/20 08/31/20 08/31/20 06:50 04:10 04:10 WBC 7.7 RBC 5.73 H Hgb 17.6 Hct 51.3 H MCV 89.5 MCH 30.7 MCHC 34.3 RDW 16.2 H Plt Count 91 L MPV 11.2 H Gran % 54.8 Eos # (Auto) 0.16 Absolute Lymphs (auto) 2.29 Absolute Monos (auto) 1.00 Lymphocytes % 29.6 Monocytes % 12.9 H Eosinophils % 2.1 Basophils % 0.6 Absolute Granulocytes 4.24 Basophils # 0.05 PT INR APTT Puncture Site pCO2 pO2 Base Excess O2 Saturation ABG pH ABG HCO3 ABG O2 Sat (Measured) Gideon Test A-a Gradient a/A Ratio Hemoglobin Carboxyhemoglobin Methemoglobin Temperature POC O2 Flow Rate Sodium 136 L Potassium 3.2 L Chloride 108 H Carbon Dioxide 23 Anion Gap 7.7 BUN 10 Creatinine 0.47 L Estimated GFR > 60.0 Glucose 111 H POC Glucometer Lactic Acid Calcium 8.7 Magnesium Total Bilirubin 1.30 AST 42 ALT 27 Alkaline Phosphatase 88 Ammonia Troponin I < 0.012 Serum Total Protein 6.3 Albumin 3.2 L Lipase Urine Color Urine Appearance Urine pH Ur Specific [place] Urine Protein Urine Ketones Urine Blood Urine Nitrite Urine Bilirubin Urine Urobilinogen Ur Leukocyte Esterase Urine WBC (Auto) Urine RBC (Auto) U Hyaline Cast (Auto) U Epithel Cells (Auto) Urine Bacteria (Auto) Calcium Oxalate Crystal Urine Mucus (Auto) Urine Culture Reflexed Urine Glucose Salicylates Urine Opiates Level Ur Methadone Acetaminophen Urine Barbiturates Ur Phencyclidine (PCP) Urine Amphetamine U Benzodiazepine Level Urine Cocaine Urine Marijuana (THC) Ethyl Alcohol Slides for Path Review YES 08/31/20 08/31/20 08/30/20 04:10 01:10 22:05 WBC RBC Hgb Hct MCV MCH MCHC RDW Plt Count MPV Gran % Eos # (Auto) Absolute Lymphs (auto) Absolute Monos (auto) Lymphocytes % Monocytes % Eosinophils % Basophils % Absolute Granulocytes Basophils # PT INR APTT Puncture Site pCO2 pO2 Base Excess O2 Saturation ABG pH ABG HCO3 ABG O2 Sat (Measured) Gideon Test A-a Gradient a/A Ratio Hemoglobin Carboxyhemoglobin Methemoglobin Temperature POC O2 Flow Rate Sodium Potassium Chloride Carbon Dioxide Anion Gap BUN Creatinine Estimated GFR Glucose POC Glucometer Lactic Acid Calcium Magnesium Total Bilirubin AST ALT Alkaline Phosphatase Ammonia Troponin I < 0.012 < 0.012 < 0.012 Serum Total Protein Albumin Lipase Urine Color Urine Appearance Urine pH Ur Specific [place] Urine Protein Urine Ketones Urine Blood Urine Nitrite Urine Bilirubin Urine Urobilinogen Ur Leukocyte Esterase Urine WBC (Auto) Urine RBC (Auto) U Hyaline Cast (Auto) U Epithel Cells (Auto) Urine Bacteria (Auto) Calcium Oxalate Crystal Urine Mucus (Auto) Urine Culture Reflexed Urine Glucose Salicylates Urine Opiates Level Ur Methadone Acetaminophen Urine Barbiturates Ur Phencyclidine (PCP) Urine Amphetamine U Benzodiazepine Level Urine Cocaine Urine Marijuana (THC) Ethyl Alcohol Slides for Path Review 08/30/20 08/30/20 08/30/20 19:53 19:53 19:40 WBC RBC Hgb Hct MCV MCH MCHC RDW Plt Count MPV Gran % Eos # (Auto) Absolute Lymphs (auto) Absolute Monos (auto) Lymphocytes % Monocytes % Eosinophils % Basophils % Absolute Granulocytes Basophils # PT INR APTT Puncture Site RIGHT BRACHIAL pCO2 36 pO2 76 Base Excess 1.3 O2 Saturation 89.0 L ABG pH 7.45 ABG HCO3 25.0 ABG O2 Sat (Measured) 97.1 Gideon Test NO A-a Gradient 29 a/A Ratio 0.72 Hemoglobin 18.9 Carboxyhemoglobin 7.0 H* Methemoglobin 1.3 L Temperature 37.0 POC O2 Flow Rate 21 Sodium Potassium 3.2 L Chloride Carbon Dioxide Anion Gap BUN Creatinine Estimated GFR Glucose POC Glucometer Lactic Acid 1.2 Calcium Magnesium Total Bilirubin AST ALT Alkaline Phosphatase Ammonia 22 Troponin I Serum Total Protein Albumin Lipase Urine Color Urine Appearance Urine pH Ur Specific [place] Urine Protein Urine Ketones Urine Blood Urine Nitrite Urine Bilirubin Urine Urobilinogen Ur Leukocyte Esterase Urine WBC (Auto) Urine RBC (Auto) U Hyaline Cast (Auto) U Epithel Cells (Auto) Urine Bacteria (Auto) Calcium Oxalate Crystal Urine Mucus (Auto) Urine Culture Reflexed Urine Glucose Salicylates Urine Opiates Level Ur Methadone Acetaminophen Urine Barbiturates Ur Phencyclidine (PCP) Urine Amphetamine U Benzodiazepine Level Urine Cocaine Urine Marijuana (THC) Ethyl Alcohol Slides for Path Review 08/30/20 08/30/20 08/30/20 19:20 19:20 19:20 WBC RBC Hgb Hct MCV MCH MCHC RDW Plt Count MPV Gran % Eos # (Auto) Absolute Lymphs (auto) Absolute Monos (auto) Lymphocytes % Monocytes % Eosinophils % Basophils % Absolute Granulocytes Basophils # PT INR APTT Puncture Site pCO2 pO2 Base Excess O2 Saturation ABG pH ABG HCO3 ABG O2 Sat (Measured) Gideon Test A-a Gradient a/A Ratio Hemoglobin Carboxyhemoglobin Methemoglobin Temperature POC O2 Flow Rate Sodium 137 Potassium 3.5 Chloride 107 Carbon Dioxide 24 Anion Gap 9.5 BUN 14 Creatinine 0.58 L Estimated GFR > 60.0 Glucose 122 H POC Glucometer Lactic Acid Calcium 9.3 Magnesium Total Bilirubin 1.00 AST 39 ALT 30 Alkaline Phosphatase 123 Ammonia Troponin I < 0.012 Serum Total Protein 6.9 Albumin 3.5 Lipase 162 Urine Color Urine Appearance Urine pH Ur Specific [place] Urine Protein Urine Ketones Urine Blood Urine Nitrite Urine Bilirubin Urine Urobilinogen Ur Leukocyte Esterase Urine WBC (Auto) Urine RBC (Auto) U Hyaline Cast (Auto) U Epithel Cells (Auto) Urine Bacteria (Auto) Calcium Oxalate Crystal Urine Mucus (Auto) Urine Culture Reflexed Urine Glucose Salicylates < 1.0 L Urine Opiates Level Ur Methadone Acetaminophen < 10 L Urine Barbiturates Ur Phencyclidine (PCP) Urine Amphetamine U Benzodiazepine Level Urine Cocaine Urine Marijuana (THC) Ethyl Alcohol < 10 Slides for Path Review 08/30/20 08/30/2008/30/21 19:20 19:16 19:12 WBC 8.4 RBC 6.20 H* Hgb 19.3 H Hct 55.0 H MCV 88.7 MCH 31.1 MCHC 35.1 RDW 16.8 H Plt Count 128 L MPV 12.4 H Gran % 57.1 Eos # (Auto) 0.19 Absolute Lymphs (auto) 2.25 Absolute Monos (auto) 1.06 Lymphocytes % 26.9 Monocytes % 12.7 H Eosinophils % 2.3 Basophils % 1.0 Absolute Granulocytes 4.77 Basophils # 0.08 PT INR APTT Puncture Site pCO2 pO2 Base Excess O2 Saturation ABG pH ABG HCO3 ABG O2 Sat (Measured) Gideon Test A-a Gradient a/A Ratio Hemoglobin Carboxyhemoglobin Methemoglobin Temperature POC O2 Flow Rate Sodium Potassium Chloride Carbon Dioxide Anion Gap BUN Creatinine Estimated GFR Glucose POC Glucometer Lactic Acid Calcium Magnesium Total Bilirubin AST ALT Alkaline Phosphatase Ammonia Troponin I Serum Total Protein Albumin Lipase Urine Color KIERA Urine Appearance CLOUDY Urine pH 5.0 Ur Specific [place] 1.029 Urine Protein 100 Urine Ketones TRACE Urine Blood NEGATIVE Urine Nitrite NEGATIVE Urine Bilirubin NEGATIVE Urine Urobilinogen 4 Ur Leukocyte Esterase NEGATIVE Urine WBC (Auto) 6-10 Urine RBC (Auto) 11-15 U Hyaline Cast (Auto) 3-5 U Epithel Cells (Auto) FEW Urine Bacteria (Auto) NONE Calcium Oxalate Crystal 11-25 Urine Mucus (Auto) SLIGHT Urine Culture Reflexed NO Urine Glucose NEGATIVE Salicylates Urine Opiates Level NEGATIVE Ur Methadone NEGATIVE Acetaminophen Urine Barbiturates NEGATIVE Ur Phencyclidine (PCP) NEGATIVE Urine Amphetamine NEGATIVE U Benzodiazepine Level NEGATIVE Urine Cocaine NEGATIVE Urine Marijuana (THC) POSITIVE Ethyl Alcohol Slides for Path Review 08/30/20 08/30/20 08/30/20 19:11 18:40 18:40 WBC RBC Hgb Hct MCV MCH MCHC RDW Plt Count MPV Gran % Eos # (Auto) Absolute Lymphs (auto) Absolute Monos (auto) Lymphocytes % Monocytes % Eosinophils % Basophils % Absolute Granulocytes Basophils # PT 14.1 H INR 1.25 APTT 32.6 Puncture Site pCO2 pO2 Base Excess O2 Saturation ABG pH ABG HCO3 ABG O2 Sat (Measured) Gideon Test A-a Gradient a/A Ratio Hemoglobin Carboxyhemoglobin Methemoglobin Temperature POC O2 Flow Rate Sodium Potassium Chloride Carbon Dioxide Anion Gap BUN Creatinine Estimated GFR Glucose POC Glucometer 119 H Lactic Acid Calcium Magnesium 1.6 Total Bilirubin AST ALT Alkaline Phosphatase Ammonia Troponin I Serum Total Protein Albumin Lipase Urine Color Urine Appearance Urine pH Ur Specific [place] Urine Protein Urine Ketones Urine Blood Urine Nitrite Urine Bilirubin Urine Urobilinogen Ur Leukocyte Esterase Urine WBC (Auto) Urine RBC (Auto) U Hyaline Cast (Auto) U Epithel Cells (Auto) Urine Bacteria (Auto) Calcium Oxalate Crystal Urine Mucus (Auto) Urine Culture Reflexed Urine Glucose Salicylates Urine Opiates Level Ur Methadone Acetaminophen Urine Barbiturates Ur Phencyclidine (PCP) Urine Amphetamine U Benzodiazepine Level Urine Cocaine Urine Marijuana (THC) Ethyl Alcohol Slides for Path Review Orders (Last 24 hours) Category Date Time Status Bedrest ROUTINE Activity 08/30/20 22:49 Active Code Status Order ROUTINE Care 08/30/20 22:49 Active EKG-ER Only STAT Care 08/30/20 19:09 Completed IV Care Q1H Care 08/30/20 22:49 Active IV Insertion STAT Care 08/30/20 19:09 Completed Neuro Checks Q4H Care 08/30/20 22:[address] in Observation ROUTINE Care 08/30/20 22:49 Active Telemetry q6h Care 08/30/20 22:49 Active Certified Paralegal/Discharge Plan ROUTINE Cons 08/30/20 23:38 Active House Regular Diet Diet 08/31/20 Breakfast Active HEAD WITHOUT CONTRAST [CT] Stat Exams 08/30/20 19:13 Completed ABG [ARTERIAL BLOOD GASES] Stat Lab 08/30/20 19:53 Completed ACETAMINOPHEN Stat Lab 08/30/20 19:20 Completed AMMONIA Stat Lab 08/30/20 19:40 Completed CBC W DIFF AM.LAB Lab 08/31/20 04:10 Completed CBC W DIFF Stat Lab 08/30/20 19:20 Completed CMP AM.LAB Lab 08/31/20 04:10 Completed CMP Stat Lab 08/30/20 19:20 Completed ETHYL ALCOHOL Stat Lab 08/30/20 19:20 Completed LIPASE Stat Lab 08/30/20 19:20 Completed Lactic Acid Stat Lab 08/30/20 19:53 Completed MAGNESIUM Stat Lab 08/30/20 18:40 Completed POCT GLUCOSE Stat Lab 08/30/20 19:11 Completed PROTIME WITH INR Stat Lab 08/30/20 18:40 Completed PTT Stat Lab 08/30/20 18:40 Completed SALICYLATE Stat Lab 08/30/20 19:20 Completed TROPONIN Q3H Lab 08/30/20 19:20 Completed TROPONIN Q3H Lab 08/30/20 22:05 Completed TROPONIN Q3H Lab 08/31/20 01:10 Completed TROPONIN Q3H Lab 08/31/20 04:10 Completed TROPONIN Q3H Lab 08/31/20 06:50 Completed UA W/RFX UR CULTURE Stat Lab 08/30/20 19:12 Completed Urine Triage Profile Stat Lab 08/30/20 19:16 Completed Albuterol Common Canister [Ventolin Common Canister* Med 08/31/20 07:00 Active ] 4 puff IH QIDRT Bumetanide 1 mg [Bumex 1 mg] Med 08/31/20 10:00 Active 2 mg PO BID DIURETIC Ceftriaxone 1 GM/50 ML PREMIX* [ROCEPHIN 1 Gm-D5w 50 ml Med 08/30/20 21:47 Discontinued Bag] 1 g in 50 ml IV STAT Ceftriaxone 1 GM/50 ML PREMIX* [ROCEPHIN 1 Gm-D5w 50 ml Med 08/30/20 22:10 Discontinued Bag] 1 g in 50 ml IV UD Diltiazem HCl 100 mg/100 ml [Cardizem Drip 100 mg/100 Med 08/30/20 20:22 Active ml D5w] 100 ml IV 10 mg/hr Diltiazem HCl 120 mg [Cardizem CD 120 MG] Med 08/31/20 08:07 Active 120 mg PO DAILY Diltiazem HCl 50 mg/10 ml [Cardizem IV 50 MG/10 ML Med 08/30/20 20:23 D iscontinued *] 15 mg IV STAT ONE Diltiazem HCl 50 mg/10 ml [Cardizem IV 50 MG/10 ML Med 08/30/20 20:28 Discontinued *] 50 mg IV .STK-MED ONE Diphenhydramine HCl 25 mg [Benadryl 25 mg Capsule Med 08/31/20 01:21 Active ] 50 mg PO HS PRN PRN Diphenhydramine HCl 50 mg/ml [Benadryl 50 mg/ml] Med 08/30/20 22:42 Discontinued 25 mg IV STAT ONE Enoxaparin Sodium [Enoxaparin Sodium] Med 08/30/20 20:38 Discontinued 80 mg SQ .STK-MED ONE Enoxaparin Sodium [Enoxaparin Sodium] Med 08/30/20 20:27 Discontinued 80 mg SQ STAT ONE Flu Vacc [id number](6Mos Up)/Pf [Fluzone Quad Med 08/30/20 23:38 Discontinued Syringe] 60 mcg IM .ONCE ONE Fluoxetine HCl 20 mg [Prozac 20 MG] Med 08/31/20 10:00 Active 20 mg PO DAILY Lactulose [Lactulose 20 gm/30Ml Ud Cup] Med 08/31/20 08:12 Active 10 gm PO QID PRN PRN Levothyroxine Sodium 100 Mcg [Synthroid 100 Mcg] Med 08/31/20 10:00 Active 200 mcg PO DAILY Magnesium Sulfate 1 gm/100 ml* [Magnesium 1 Gm / 100 Ml Med 08/30/20 22:15 Discontinued D5W] 100 ml IV Q1H Magnesium Sulfate 1 gm/2 ml [Magnesium Sulfate 1 GM/ Med 08/30/20 22:10 Discontinued 2 ML VIAL] 1 gm .ROUTE .STK-MED ONE Magnesium Sulfate 1 gm/2 ml [Magnesium Sulfate 1 GM/ Med 08/30/20 20:58 Discontinued 2 ML VIAL] 2 gm IV ONCE STA Medication Intervention Med 08/31/20 08:45 Active 0 each MC .RN TO CHECK WITH PT Medication Intervention Med 08/31/20 08:30 Active 0 each MC .RN TO CLARIFY Morphine Sulfate 2 mg Inj Med 08/30/20 22:49 Active 2 mg IV Q4H PRN PRN NaCl 0.9% 1000 ml [Sodium Chloride 0.9% 1000 ML] 1,000 Med 08/30/20 19:15 Active ml IV 100 mls/hr Ondansetron HCl 4 mg/2 ml [Zofran 4 MG/2 ML VIAL] Med 08/30/20 22:49 Active 4 mg IV Q6H PRN PRN Ondansetron ODT 4 MG [Zofran Odt 4 mg] Med 08/31/20 08:14 Active 4 mg PO TID PRN PRN Propranolol HCl 20 mg [Inderal 20 MG] Med 08/31/20 10:00 Active 40 mg PO DAILY Rifaximin 200 MG [Xifaxan 200 MG] Med 08/31/20 10:00 Discontinued 550 mg PO BID Pulse Oximetry CONTINUOUS RT 08/30/20 22:49 Active RT Screen per Nursing Assess ONCE RT 08/31/20 00:19 Completed Respiratory Therapy Assessment DAILY RT 08/31/20 01:51 Active Smoking Cessation Education ONCE RT 08/31/20 00:19 Completed - Vitals & Intake/Output Vital Signs: Vital Signs Temperature 98.5 F 08/31/20 07:00 Pulse Rate 102 H 08/31/20 08:00 Respiratory Rate 15 08/31/20 08:00 Blood Pressure 119/85 08/31/20 08:00 O2 Sat by Pulse Oximetry 94 L 08/31/20 07:06 Intake & Output: Intake & Output 08/28/20 08/29/20 08/30/20 08/31/20 11:59 11:59 11:59 11:59 Intake Total 3598 Output Total 800 Balance 2798 Weight 290 kg - Lab Result Diagrams: 08/31/20 04:10 08/31/20 16:25 Lab Results-Last 24 Hrs: Lab Results-Last 24 Hours 08/30/20 08/30/20 08/30/20 Range/Units 18:40 18:40 19:11 WBC (4.0-10.5) K/mm3 RBC (4.1-5.6) M/mm3 Hgb (12.5-18.0) gm/dl Hct (42-50) % MCV (78-100) fl MCH (26-32) pg MCHC (32-36) g/dl RDW (11.5-14.0) % Plt Count (150-450) K/mm3 MPV (7.5-11.0) fl Gran % (36.0-66.0) % Eos # (Auto) (0-0.5) Absolute Lymphs (auto) (1.0-4.6) Absolute Monos (auto) (0.0-1.3) Lymphocytes % (24.0-44.0) % Monocytes % (0.0-12.0) % Eosinophils % (0.00-5.0) % Basophils % (0.0-0.4) % Absolute Granulocytes (1.4-6.9) Basophils # (0-0.4) PT 14.1 H (8.83-12.87) SECONDS INR 1.25 (0.8-3.0) APTT 32.6 (24.1-36.1) SECONDS Puncture Site pCO2 (35-45) mmHg pO2 (75-100) mmHg Base Excess (-2.0-2.0) O2 Saturation (94-100) g/dF ABG pH (7.35-7.45) ABG HCO3 (22-28) ABG O2 Sat (Measured) (95-100) % Gideon Test A-a Gradient a/A Ratio Hemoglobin Carboxyhemoglobin (0.0-6.9) % THgb Methemoglobin (1.4-1.5) % Temperature C POC O2 Flow Rate % Sodium (137-145) mmol/L Potassium (3.5-5.1) mmol/L Chloride (98-107) mmol/L Carbon Dioxide (22-30) mmol/L Anion Gap (5-15) MEQ/L BUN (9-20) mg/dL Creatinine (0.66-1.25) mg/dL Estimated GFR ML/MIN Glucose (74-106) mg/dL POC Glucometer 119 H (74 to 106) mg/dL Lactic Acid (0.4-2.0) Calcium (8.4-10.2) mg/dL Magnesium 1.6 (1.6-2.3) mg/dL Total Bilirubin (0.2-1.3) mg/dL AST (17-59) U/L ALT (0-50) U/L Alkaline Phosphatase (38-126) U/L Ammonia (9-30) umol/L Troponin I (0.000-0.034) ng/mL Serum Total Protein (6.3-8.2) g/dL Albumin (3.5-5.0) g/dL Lipase (23-300) U/L Urine Color (YELLOW) Urine Appearance (CLEAR) Urine pH (5-6) Ur Specific [place] (1.005-1.025) Urine Protein (Negative) Urine Ketones (NEGATIVE) Urine Blood (0-5) Christopher/ul Urine Nitrite (NEGATIVE) Urine Bilirubin (NEGATIVE) Urine Urobilinogen (0-1) mg/dL Ur Leukocyte Esterase (NEGATIVE) Urine WBC (Auto) (0-5) /HPF Urine RBC (Auto) (0-2) /HPF U Hyaline Cast (Auto) (0-2) /LPF U Epithel Cells (Auto) (FEW) /HPF Urine Bacteria (Auto) (NEGATIVE) /HPF Calcium Oxalate Crystal (NEGATIVE) /HPF Urine Mucus (Auto) (NEGATIVE) /HPF Urine Culture Reflexed (NO) Urine Glucose (NEGATIVE) mg/dL Salicylates (2-20) mg/dL Urine Opiates Level (NEGATIVE) Ur Methadone (NEGATIVE) Acetaminophen (10-30) ug/ml Urine Barbiturates (NEGATIVE) Ur Phencyclidine (PCP) (NEGATIVE) Urine Amphetamine (NEGATIVE) U Benzodiazepine Level (NEGATIVE) Urine Cocaine (NEGATIVE) Urine Marijuana (THC) (NEGATIVE) Ethyl Alcohol (0-10) mg/dL Slides for Path Review 08/30/20 08/30/20 08/30/20 Range/Units 19:12 19:16 19:20 WBC 8.4 (4.0-10.5) K/mm3 RBC 6.20 H* (4.1-5.6) M/mm3 Hgb 19.3 H (12.5-18.0) gm/dl Hct 55.0 H (42-50) % MCV 88.7 (78-100) fl MCH 31.1 (26-32) pg MCHC 35.1 (32-36) g/dl RDW 16.8 H (11.5-14.0) % Plt Count 128 L (150-450) K/mm3 MPV 12.4 H (7.5-11.0) fl Gran % 57.1 (36.0-66.0) % Eos # (Auto) 0.19 (0-0.5) Absolute Lymphs (auto) 2.25 (1.0-4.6) Absolute Monos (auto) 1.06 (0.0-1.3) Lymphocytes % 26.9 (24.0-44.0) % Monocytes % 12.7 H (0.0-12.0) % Eosinophils % 2.3 (0.00-5.0) % Basophils % 1.0 (0.0-0.4) % Absolute Granulocytes 4.77 (1.4-6.9) Basophils # 0.08 (0-0.4) PT (8.83-12.87) SECONDS INR (0.8-3.0) APTT (24.1-36.1) SECONDS Puncture Site pCO2 (35-45) mmHg pO2 (75-100) mmHg Base Excess (-2.0-2.0) O2 Saturation (94-100) g/dF ABG pH (7.35-7.45) ABG HCO3 (22-28) ABG O2 Sat (Measured) (95-100) % Gideon Test A-a Gradient a/A Ratio Hemoglobin Carboxyhemoglobin (0.0-6.9) % THgb Methemoglobin (1.4-1.5) % Temperature C POC O2 Flow Rate % Sodium (137-145) mmol/L Potassium (3.5-5.1) mmol/L Chloride (98-107) mmol/L Carbon Dioxide (22-30) mmol/L Anion Gap (5-15) MEQ/L BUN (9-20) mg/dL Creatinine (0.66-1.25) mg/dL Estimated GFR ML/MIN Glucose (74-106) mg/dL POC Glucometer (74 to 106) mg/dL Lactic Acid (0.4-2.0) Calcium (8.4-10.2) mg/dL Magnesium (1.6-2.3) mg/dL Total Bilirubin (0.2-1.3) mg/dL AST (17-59) U/L ALT (0-50) U/L Alkaline Phosphatase (38-126) U/L Ammonia (9-30) umol/L Troponin I (0.000-0.034) ng/mL Serum Total Protein (6.3-8.2) g/dL Albumin (3.5-5.0) g/dL Lipase (23-300) U/L Urine Color KIERA (YELLOW) Urine Appearance CLOUDY (CLEAR) Urine pH 5.0 (5-6) Ur Specific [place] 1.029 (1.005-1.025) Urine Protein 100 (Negative) Urine Ketones TRACE (NEGATIVE) Urine Blood NEGATIVE (0-5) Christopher/ul Urine Nitrite NEGATIVE (NEGATIVE) Urine Bilirubin NEGATIVE (NEGATIVE) Urine Urobilinogen 4 (0-1) mg/dL Ur Leukocyte Esterase NEGATIVE (NEGATIVE) Urine WBC (Auto) 6-10 (0-5) /HPF Urine RBC (Auto) 11-15 (0-2) /HPF U Hyaline Cast (Auto) 3-5 (0-2) /LPF U Epithel Cells (Auto) FEW (FEW) /HPF Urine Bacteria (Auto) NONE (NEGATIVE) /HPF Calcium Oxalate Crystal 11-25 (NEGATIVE) /HPF Urine Mucus (Auto) SLIGHT (NEGATIVE) /HPF Urine Culture Reflexed NO (NO) Urine Glucose NEGATIVE (NEGATIVE) mg/dL Salicylates (2-20) mg/dL Urine Opiates Level NEGATIVE (NEGATIVE) Ur Methadone NEGATIVE (NEGATIVE) Acetaminophen (10-30) ug/ml Urine Barbiturates NEGATIVE (NEGATIVE) Ur Phencyclidine (PCP) NEGATIVE (NEGATIVE) Urine Amphetamine NEGATIVE (NEGATIVE) U Benzodiazepine Level NEGATIVE (NEGATIVE) Urine Cocaine NEGATIVE (NEGATIVE) Urine Marijuana (THC) POSITIVE (NEGATIVE) Ethyl Alcohol (0-10) mg/dL Slides for Path Review 08/30/20 08/30/20 08/30/20 Range/Units 19:20 19:20 19:20 WBC (4.0-10.5) K/mm3 RBC (4.1-5.6) M/mm3 Hgb (12.5-18.0) gm/dl Hct (42-50) % MCV (78-100) fl MCH (26-32) pg MCHC (32-36) g/dl RDW (11.5-14.0) % Plt Count (150-450) K/mm3 MPV (7.5-11.0) fl Gran % (36.0-66.0) % Eos # (Auto) (0-0.5) Absolute Lymphs (auto) (1.0-4.6) Absolute Monos (auto) (0.0-1.3) Lymphocytes % (24.0-44.0) % Monocytes % (0.0-12.0) % Eosinophils % (0.00-5.0) % Basophils % (0.0-0.4) % Absolute Granulocytes (1.4-6.9) Basophils # (0-0.4) PT (8.83-12.87) SECONDS INR (0.8-3.0) APTT (24.1-36.1) SECONDS Puncture Site pCO2 (35-45) mmHg pO2 (75-100) mmHg Base Excess (-2.0-2.0) O2 Saturation (94-100) g/dF ABG pH (7.35-7.45) ABG HCO3 (22-28) ABG O2 Sat (Measured) (95-100) % Gideon Test A-a Gradient a/A Ratio Hemoglobin Carboxyhemoglobin (0.0-6.9) % THgb Methemoglobin (1.4-1.5) % Temperature C POC O2 Flow Rate % Sodium 137 (137-145) mmol/L Potassium 3.5 (3.5-5.1) mmol/L Chloride 107 (98-107) mmol/L Carbon Dioxide 24 (22-30) mmol/L Anion Gap 9.5 (5-15) MEQ/L BUN 14 (9-20) mg/dL Creatinine 0.58 L (0.66-1.25) mg/dL Estimated GFR > 60.0 ML/MIN Glucose 122 H (74-106) mg/dL POC Glucometer (74 to 106) mg/dL Lactic Acid (0.4-2.0) Calcium 9.3 (8.4-10.2) mg/dL Magnesium (1.6-2.3) mg/dL Total Bilirubin 1.00 (0.2-1.3) mg/dL AST 39 (17-59) U/L ALT 30 (0-50) U/L Alkaline Phosphatase 123 (38-126) U/L Ammonia (9-30) umol/L Troponin I < 0.012 (0.000-0.034) ng/mL Serum Total Protein 6.9 (6.3-8.2) g/dL Albumin 3.5 (3.5-5.0) g/dL Lipase 162 (23-300) U/L Urine Color (YELLOW) Urine Appearance (CLEAR) Urine pH (5-6) Ur Specific [place] (1.005-1.025) Urine Protein (Negative) Urine Ketones (NEGATIVE) Urine Blood (0-5) Christopher/ul Urine Nitrite (NEGATIVE) Urine Bilirubin (NEGATIVE) Urine Urobilinogen (0-1) mg/dL Ur Leukocyte Esterase (NEGATIVE) Urine WBC (Auto) (0-5) /HPF Urine RBC (Auto) (0-2) /HPF U Hyaline Cast (Auto) (0-2) /LPF U Epithel Cells (Auto) (FEW) /HPF Urine Bacteria (Auto) (NEGATIVE) /HPF Calcium Oxalate Crystal (NEGATIVE) /HPF Urine Mucus (Auto) (NEGATIVE) /HPF Urine Culture Reflexed (NO) Urine Glucose (NEGATIVE) mg/dL Salicylates < 1.0 L (2-20) mg/dL Urine Opiates Level (NEGATIVE) Ur Methadone (NEGATIVE) Acetaminophen < 10 L (10-30) ug/ml Urine Barbiturates (NEGATIVE) Ur Phencyclidine (PCP) (NEGATIVE) Urine Amphetamine (NEGATIVE) U Benzodiazepine Level (NEGATIVE) Urine Cocaine (NEGATIVE) Urine Marijuana (THC) (NEGATIVE) Ethyl Alcohol < 10 (0-10) mg/dL Slides for Path Review 08/30/20 08/30/20 08/30/20 Range/Units 19:40 19:53 19:53 WBC (4.0-10.5) K/mm3 RBC (4.1-5.6) M/mm3 Hgb (12.5-18.0) gm/dl Hct (42-50) % MCV (78-100) fl MCH (26-32) pg MCHC (32-36) g/dl RDW (11.5-14.0) % Plt Count (150-450) K/mm3 MPV (7.5-11.0) fl Gran % (36.0-66.0) % Eos # (Auto) (0-0.5) Absolute Lymphs (auto) (1.0-4.6) Absolute Monos (auto) (0.0-1.3) Lymphocytes % (24.0-44.0) % Monocytes % (0.0-12.0) % Eosinophils % (0.00-5.0) % Basophils % (0.0-0.4) % Absolute Granulocytes (1.4-6.9) Basophils # (0-0.4) PT (8.83-12.87) SECONDS INR (0.8-3.0) APTT (24.1-36.1) SECONDS Puncture Site RIGHT BRACHIAL pCO2 36 (35-45) mmHg pO2 76 (75-100) mmHg Base Excess 1.3 (-2.0-2.0) O2 Saturation 89.0 L (94-100) g/dF ABG pH 7.45 (7.35-7.45) ABG HCO3 25.0 (22-28) ABG O2 Sat (Measured) 97.1 (95-100) % Gideon Test NO A-a Gradient 29 a/A Ratio 0.72 Hemoglobin 18.9 Carboxyhemoglobin 7.0 H* (0.0-6.9) % THgb Methemoglobin 1.3 L (1.4-1.5) % Temperature 37.0 C POC O2 Flow Rate 21 % Sodium (137-145) mmol/L Potassium 3.2 L (3.5-5.1) mmol/L Chloride (98-107) mmol/L Carbon Dioxide (22-30) mmol/L Anion Gap (5-15) MEQ/L BUN (9-20) mg/dL Creatinine (0.66-1.25) mg/dL Estimated GFR ML/MIN Glucose (74-106) mg/dL POC Glucometer (74 to 106) mg/dL Lactic Acid 1.2 (0.4-2.0) Calcium (8.4-10.2) mg/dL Magnesium (1.6-2.3) mg/dL Total Bilirubin (0.2-1.3) mg/dL AST (17-59) U/L ALT (0-50) U/L Alkaline Phosphatase (38-126) U/L Ammonia 22 (9-30) umol/L Troponin I (0.000-0.034) ng/mL Serum Total Protein (6.3-8.2) g/dL Albumin (3.5-5.0) g/dL Lipase (23-300) U/L Urine Color (YELLOW) Urine Appearance (CLEAR) Urine pH (5-6) Ur Specific [place] (1.005-1.025) Urine Protein (Negative) Urine Ketones (NEGATIVE) Urine Blood (0-5) Christopher/ul Urine Nitrite (NEGATIVE) Urine Bilirubin (NEGATIVE) Urine Urobilinogen (0-1) mg/dL Ur Leukocyte Esterase (NEGATIVE) Urine WBC (Auto) (0-5) /HPF Urine RBC (Auto) (0-2) /HPF U Hyaline Cast (Auto) (0-2) /LPF U Epithel Cells (Auto) (FEW) /HPF Urine Bacteria (Auto) (NEGATIVE) /HPF Calcium Oxalate Crystal (NEGATIVE) /HPF Urine Mucus (Auto) (NEGATIVE) /HPF Urine Culture Reflexed (NO) Urine Glucose (NEGATIVE) mg/dL Salicylates (2-20) mg/dL Urine Opiates Level (NEGATIVE) Ur Methadone (NEGATIVE) Acetaminophen (10-30) ug/ml Urine Barbiturates (NEGATIVE) Ur Phencyclidine (PCP) (NEGATIVE) Urine Amphetamine (NEGATIVE) U Benzodiazepine Level (NEGATIVE) Urine Cocaine (NEGATIVE) Urine Marijuana (THC) (NEGATIVE) Ethyl Alcohol (0-10) mg/dL Slides for Path Review 08/30/20 08/31/20 08/31/20 Range/Units 22:05 01:10 04:10 WBC (4.0-10.5) K/mm3 RBC (4.1-5.6) M/mm3 Hgb (12.5-18.0) gm/dl Hct (42-50) % MCV (78-100) fl MCH (26-32) pg MCHC (32-36) g/dl RDW (11.5-14.0) % Plt Count (150-450) K/mm3 MPV (7.5-11.0) fl Gran % (36.0-66.0) % Eos # (Auto) (0-0.5) Absolute Lymphs (auto) (1.0-4.6) Absolute Monos (auto) (0.0-1.3) Lymphocytes % (24.0-44.0) % Monocytes % (0.0-12.0) % Eosinophils % (0.00-5.0) % Basophils % (0.0-0.4) % Absolute Granulocytes (1.4-6.9) Basophils # (0-0.4) PT (8.83-12.87) SECONDS INR (0.8-3.0) APTT (24.1-36.1) SECONDS Puncture Site pCO2 (35-45) mmHg pO2 (75-100) mmHg Base Excess (-2.0-2.0) O2 Saturation (94-100) g/dF ABG pH (7.35-7.45) ABG HCO3 (22-28) ABG O2 Sat (Measured) (95-100) % Gideon Test A-a Gradient a/A Ratio Hemoglobin Carboxyhemoglobin (0.0-6.9) % THgb Methemoglobin (1.4-1.5) % Temperature C POC O2 Flow Rate % Sodium (137-145) mmol/L Potassium (3.5-5.1) mmol/L Chloride (98-107) mmol/L Carbon Dioxide (22-30) mmol/L Anion Gap (5-15) MEQ/L BUN (9-20) mg/dL Creatinine (0.66-1.25) mg/dL Estimated GFR ML/MIN Glucose (74-106) mg/dL POC Glucometer (74 to 106) mg/dL Lactic Acid (0.4-2.0) Calcium (8.4-10.2) mg/dL Magnesium (1.6-2.3) mg/dL Total Bilirubin (0.2-1.3) mg/dL AST (17-59) U/L ALT (0-50) U/L Alkaline Phosphatase (38-126) U/L Ammonia (9-30) umol/L Troponin I < 0.012 < 0.012 < 0.012 (0.000-0.034) ng/mL Serum Total Protein (6.3-8.2) g/dL Albumin (3.5-5.0) g/dL Lipase (23-300) U/L Urine Color (YELLOW) Urine Appearance (CLEAR) Urine pH (5-6) Ur Specific [place] (1.005-1.025) Urine Protein (Negative) Urine Ketones (NEGATIVE) Urine Blood (0-5) Christopher/ul Urine Nitrite (NEGATIVE) Urine Bilirubin (NEGATIVE) Urine Urobilinogen (0-1) mg/dL Ur Leukocyte Esterase (NEGATIVE) Urine WBC (Auto) (0-5) /HPF Urine RBC (Auto) (0-2) /HPF U Hyaline Cast (Auto) (0-2) /LPF U Epithel Cells (Auto) (FEW) /HPF Urine Bacteria (Auto) (NEGATIVE) /HPF Calcium Oxalate Crystal (NEGATIVE) /HPF Urine Mucus (Auto) (NEGATIVE) /HPF Urine Culture Reflexed (NO) Urine Glucose (NEGATIVE) mg/dL Salicylates (2-20) mg/dL Urine Opiates Level (NEGATIVE) Ur Methadone (NEGATIVE) Acetaminophen (10-30) ug/ml Urine Barbiturates (NEGATIVE) Ur Phencyclidine (PCP) (NEGATIVE) Urine Amphetamine (NEGATIVE) U Benzodiazepine Level (NEGATIVE) Urine Cocaine (NEGATIVE) Urine Marijuana (THC) (NEGATIVE) Ethyl Alcohol (0-10) mg/dL Slides for Path Review 08/31/20 08/31/20 08/31/20 Range/Units 04:10 04:10 06:50 WBC 7.7 (4.0-10.5) K/mm3 RBC 5.73 H (4.1-5.6) M/mm3 Hgb 17.6 (12.5-18.0) gm/dl Hct 51.3 H (42-50) % MCV 89.5 (78-100) fl MCH 30.7 (26-32) pg MCHC 34.3 (32-36) g/dl RDW 16.2 H (11.5-14.0) % Plt Count 91 L (150-450) K/mm3 MPV 11.2 H (7.5-11.0) fl Gran % 54.8 (36.0-66.0) % Eos # (Auto) 0.16 (0-0.5) Absolute Lymphs (auto) 2.29 (1.0-4.6) Absolute Monos (auto) 1.00 (0.0-1.3) Lymphocytes % 29.6 (24.0-44.0) % Monocytes % 12.9 H (0.0-12.0) % Eosinophils % 2.1 (0.00-5.0) % Basophils % 0.6 (0.0-0.4) % Absolute Granulocytes 4.24 (1.4-6.9) Basophils # 0.05 (0-0.4) PT (8.83-12.87) SECONDS INR (0.8-3.0) APTT (24.1-36.1) SECONDS Puncture Site pCO2 (35-45) mmHg pO2 (75-100) mmHg Base Excess (-2.0-2.0) O2 Saturation (94-100) g/dF ABG pH (7.35-7.45) ABG HCO3 (22-28) ABG O2 Sat (Measured) (95-100) % Gideon Test A-a Gradient a/A Ratio Hemoglobin Carboxyhemoglobin (0.0-6.9) % THgb Methemoglobin (1.4-1.5) % Temperature C POC O2 Flow Rate % Sodium 136 L (137-145) mmol/L Potassium 3.2 L (3.5-5.1) mmol/L Chloride 108 H (98-107) mmol/L Carbon Dioxide 23 (22-30) mmol/L Anion Gap 7.7 (5-15) MEQ/L BUN 10 (9-20) mg/dL Creatinine 0.47 L (0.66-1.25) mg/dL Estimated GFR > 60.0 ML/MIN Glucose 111 H (74-106) mg/dL POC Glucometer (74 to 106) mg/dL Lactic Acid (0.4-2.0) Calcium 8.7 (8.4-10.2) mg/dL Magnesium (1.6-2.3) mg/dL Total Bilirubin 1.30 (0.2-1.3) mg/dL AST 42 (17-59) U/L ALT 27 (0-50) U/L Alkaline Phosphatase 88 (38-126) U/L Ammonia (9-30) umol/L Troponin I < 0.012 (0.000-0.034) ng/mL Serum Total Protein 6.3 (6.3-8.2) g/dL Albumin 3.2 L (3.5-5.0) g/dL Lipase (23-300) U/L Urine Color (YELLOW) Urine Appearance (CLEAR) Urine pH (5-6) Ur Specific [place] (1.005-1.025) Urine Protein (Negative) Urine Ketones (NEGATIVE) Urine Blood (0-5) Christopher/ul Urine Nitrite (NEGATIVE) Urine Bilirubin (NEGATIVE) Urine Urobilinogen (0-1) mg/dL Ur Leukocyte Esterase (NEGATIVE) Urine WBC (Auto) (0-5) /HPF Urine RBC (Auto) (0-2) /HPF U Hyaline Cast (Auto) (0-2) /LPF U Epithel Cells (Auto) (FEW) /HPF Urine Bacteria (Auto) (NEGATIVE) /HPF Calcium Oxalate Crystal (NEGATIVE) /HPF Urine Mucus (Auto) (NEGATIVE) /HPF Urine Culture Reflexed (NO) Urine Glucose (NEGATIVE) mg/dL Salicylates (2-20) mg/dL Urine Opiates Level (NEGATIVE) Ur Methadone (NEGATIVE) Acetaminophen (10-30) ug/ml Urine Barbiturates (NEGATIVE) Ur Phencyclidine (PCP) (NEGATIVE) Urine Amphetamine (NEGATIVE) U Benzodiazepine Level (NEGATIVE) Urine Cocaine (NEGATIVE) Urine Marijuana (THC) (NEGATIVE) Ethyl Alcohol (0-10) mg/dL Slides for Path Review YES Micro Results-Entire Visit: Accuchecks Date 08/30/20 Time 19:11 - Radiology Exams Ordered Rad Exams-Entire Visit: Radiology Procedures Category Date Time Status HEAD WITHOUT CONTRAST [CT] Stat Exams 08/30/20 19:13 Completed - Procedures and Test Procedures and Tests throughout Hospitalization: Therapy Orders & Screens 08/31/20 00:19 RT Screen per Nursing Assess ONCE Comment: Protocol Order Physician Instructions: Greater than 3 points order RT Admission Screen Reason For Exam: Triggered on Admission Diagnosis: Afib with RVR Diagnosis: Afib with RVR Home O2: No Asthma: Yes Home Nebs/MDI: Yes Total Points: 9 Smoking Cessation Education ONCE Comment: Diagnosis: Afib with RVR Smoking Status: Current every day smoker How long have you smoked: years Have you smoked in the past 12 months: Yes Approximately how many cigarettes per day: 2 pks a day. Do you dip or chew tobacco: No 08/31/20 01:51 Respiratory Therapy Assessment DAILY Comment: Diagnosis: Afib with RVR Discharge Exam General Appearance: no apparent distress, alert Neurologic Exam: alert, oriented x 3, cooperative, normal mood/affect, nml cerebellar function, sensation nml, No motor deficits Eye Exam: PERRL, EOMI, eyes nml inspection Ears, Nose, Throat Exam: normal ENT inspection, pharynx normal, moist mucous membranes Neck Exam: normal inspection, non-tender, supple, full range of motion Respiratory Exam: normal breath sounds, lungs clear, No respiratory distress Cardiovascular Exam: regular rate/rhythm, normal heart sounds Gastrointestinal/Abdomen Exam: soft, No tenderness, No mass Male Genitalia Exam: deferred Rectal Exam: deferred Back Exam: normal inspection, normal range of motion, No CVA tenderness, No vertebral tenderness Extremity Exam: normal inspection, normal range of motion Skin Exam: normal color, warm, dry Final Diagnosis/Problem List - Final Discharge Diagnosis/Problem (1) Atrial fibrillation with rapid ventricular response Current Visit: Yes Status: Resolved Priority: High Assessment & Plan: will start him on cardizem cd 120 mg daily Code(s): I48.91 - UNSPECIFIED ATRIAL FIBRILLATION (2) Confusion Current Visit: Yes Status: Resolved Code(s): R41.0 - DISORIENTATION, UNSPECIFIED (3) Insomnia Current Visit: Yes Status: Chronic Code(s): G47.00 - INSOMNIA, UNSPECIFIED (4) Nonadherence to medication Current Visit: Yes Status: Acute Code(s): Z91.14 - PATIENT'S OTHER NONCOMPLIANCE WITH MEDICATION REGIMEN (5) Liver disease, chronic, with cirrhosis Current Visit: Yes Status: Chronic Code(s): K74.60 - UNSPECIFIED CIRRHOSIS OF LIVER; K76.9 - LIVER DISEASE, UNSPECIFIED (6) Depression, major, in partial remission Current Visit: Yes Status: Acute Code(s): F32.4 - MAJOR DEPRESSV DISORDER, SINGLE EPISODE, IN PARTIAL REMIS - Discharge Discharge Date: 08/31/20 Disposition: XFER OTHER Condition: Stable Prescriptions: New Bumetanide 1 mg [Bumex 1 mg] 2 mg PO BID DIURETIC 30 Days #60 tablet Diltiazem HCl 120 mg [Cardizem CD 120 MG] 120 mg PO DAILY 30 Days #30 cap.sr.24h Continue Propranolol HCl 40 mg PO DAILY Diphenhydramine HCl [Benadryl Allergy] 50 mg PO HS PRN PRN PRN Reason: Insomnia Potassium Chloride [Klor-Con 8] 8 meq PO UD 30 Days #30 tablet Lactulose 15 ml PO QID PRN PRN 30 Days #500 ml PRN Reason: Agitation Levothyroxine Sodium 200 mcg PO DAILY #30 tablet Fluoxetine HCl 20 mg [Prozac 20 MG] 20 mg PO DAILY 30 Days #30 cap Albuterol Common Canister [Ventolin Common Canister] 2 puffs IH Q4HPRN PRN 30 Days #1 puff PRN Reason: Shortness Of Breath/Wheezing Rifaximin [Xifaxan] 550 mg PO BID 30 Days #60 tablet Ondansetron HCl [Zofran] 4 mg PO TID PRN #10 tablet PRN Reason: Nausea/Vomiting Follow up with: KETAN ECHEVARRIA [Primary Care Provider] - 5 Days
[2020-08-31] MEDS ORDERED: SYNTHROID 100 MCG PO SCH (10:00)
[2020-08-31] MEDS ORDERED: Prozac 20 MG PO SCH (10:00)
[2020-08-31] MEDS ORDERED: Xifaxan 200 MG PO SCH (10:00)
[2020-08-31] MEDS ORDERED: NON-FORMULARY ITEM (Propranolol Hcl [Propranolol Hcl] 40 MG) PO SCH (10:00)
[2020-08-31] MEDS ORDERED: Inderal 20 MG PO SCH (10:00)
[2020-08-31 16:39] LABS: ALBUMIN 3.4 g/dL (3.5-5.0); ALKALINE PHOSPHATASE 120 U/L (38-126); ANION GAP 5.7 MEQ/L (5-15); BLOOD UREA NITROGEN 9 mg/dL (9-20); CHLORIDE 105 mmol/L (98-107); Calcium 8.5 mg/dL (8.4-10.2); Carbon Dioxide 31 mmol/L (22-30); Creatinine 1 0.63 mg/dL (0.66-1.25); EST GLOMERULAR FILTRATION RATE > 60.0 ML/MIN; Glucose 105 mg/dL (74-106); Potassium 3.2 mmol/L (3.5-5.1); SGOT/AST 37 U/L (17-59); SGPT/ALT 29 U/L (0-50); SODIUM 138 mmol/L (137-145); Total Protein 6.4 g/dL (6.3-8.2)
[2020-08-31 19:33] VITALS: PULSE 91
[2020-08-31 20:00] VITALS: BP 120/92; O2SAT 93
[2020-08-31 20:39] LABS: Appearance CLEAR (CLEAR); Bilirubin NEGATIVE (NEGATIVE); Blood NEGATIVE Ery/ul (0-5); Glucose NEGATIVE (NEGATIVE); Ketones NEGATIVE (NEGATIVE); Leukocyte Esterase NEGATIVE (NEGATIVE); Mucus SLIGHT /HPF (NEGATIVE); Nitrite NEGATIVE (NEGATIVE); Protein,Urine Dip NEGATIVE (Negative); Urobilinogen 4 mg/dL (0-1)
== END 2020-08-31 22:10 ==
LOC: ED 18:35 → MED SURG 22:11 → ICU 22:12
PROVIDERS: ADMIT Family Medicine; ATTEND Family Medicine
DX: I48.91 Unspecified atrial fibrillation (principal); R41.0 Disorientation, unspecified; Z79.899 Other long term (current) drug therapy; I10 Essential (primary) hypertension; E03.9 Hypothyroidism, unspecified; I25.10 Atherosclerotic heart disease of native coronary artery without angina pectoris; Z91.14 Patient's other noncompliance with medication regimen; G47.00 Insomnia, unspecified; K74.60 Unspecified cirrhosis of liver; K76.9 Liver disease, unspecified; F32.4 Major depressive disorder, single episode, in partial remission
CPT/HCPCS: 36000; 36415; 36600; 70450; 80053; 80307; 81001; 82140; 82375; 82803; 82947; 83605; 83690; 83735; 84484; 85025; 85610; 85730; 90791; 93005; 93268; 94640; 94762; 96360; 96365; 96366; 96372; 96374; 99285; G0378; G0480; Q3014; J0696; J1650; J3475; A9270-GY

== ENCOUNTER 2021-03-05 06:50 | Inpatient (IN) | payer MEDICARE ==
[2021-03-05 07:40] LABS: Absolute Neutrophil Ct (ANC) 2.73 (1.4-6.9); BASOPHIL % 1.1 % (0.0-0.4); Basophil (Absolute #) 0.05 (0-0.4); Eosinophil % 2.4 % (0.00-5.0); Eosinophil (Absolute #) 0.11 (0-0.5); Hematocrit 50.7 % (42-50); Hemoglobin 15.9 gm/dl (12.5-18.0); Lymphocyte (Absolute #) 1.18 (1.0-4.6); Lymphocytes % 25.3 % (24.0-44.0); Mean Cell Volume 95.3 fl (78-100); Mean Corpuscular Hemoglobin 29.9 pg (26-32); Mean Corpuscular Hgb Concent. 31.4 g/dl (32-36); Mean Platelet Volume 11.8 fl (7.5-11.0); Monocytes % 12.8 % (0.0-12.0); Neutrophil % 58.4 % (36.0-66.0); Platelet Count 68 K/mm3 (150-450); Red Blood Count 5.32 M/mm3 (4.1-5.6); Red Cell Distribution Width 17.3 % (11.5-14.0); White Blood Count 4.7 K/mm3 (4.0-10.5)
[2021-03-05 08:00] LABS: ALBUMIN 3.6 g/dL (3.5-5.0); ALKALINE PHOSPHATASE 116 U/L (38-126); ANION GAP 34.5 MEQ/L (5-15); BLOOD UREA NITROGEN 5 mg/dL (9-20); CHLORIDE 104 mmol/L (98-107); Calcium 8.9 mg/dL (8.4-10.2); Carbon Dioxide 28 mmol/L (22-30); Creatinine 1 0.55 mg/dL (0.66-1.25); EST GLOMERULAR FILTRATION RATE > 60.0 ML/MIN; Glucose 178 mg/dL (74-106); MAGNESIUM 1.7 mg/dL (1.6-2.3); NT PRO BNP 483 pg/mL (0-900); Potassium 3.5 mmol/L (3.5-5.1); SGOT/AST 26 U/L (17-59); SGPT/ALT 14 U/L (0-50); Total Protein 6.8 g/dL (6.3-8.2)
--- NOTE | 2021-03-05 08:05 | ERPHSYRPT ---
- History of Present Illness Time Seen by Provider: 03/05/21 07:10 Source: patient Patient Subjective Stated Complaint: "I was sob x2 days but much worse this morning". Triage Nursing Assessment: Pt c/o sob x2 days, but it has gotten much worse and he did not sleep at all last night. Lungs coarse with rhonchi ant/post bilat. Pt has prod cough with thick clear sputum. Physician History: Patient is a 50-year-old male presents to our emergency department for evaluation of shortness of breath. Symptoms started 2 days ago and have been progressive. Patient states that he could not sleep last night. No chest pain. Patient admits to a cough productive of clear sputum. No nausea or vomiting. No diaphoresis. Symptoms are moderate in intensity. No specific worsening or improving factors. Patient denies syncope. Patient voices no other complaints or concerns at this time. Timing/Duration: day(s) (2 days) Activities at Onset: rest Severity of Dyspnea-Max: moderate Severity of Dyspnea-Current: mild Possible Cause: no prior episodes Modifying Factors: Improves With: activity Associated Symptoms: cough, insomnia, No edema, No heaviness, No lightheadedness, No muscle spasms feet Allergies/Adverse Reactions: nitrofurantoin [From Macrobid] Allergy (Verified 03/05/21 07:02) Rash Home Medications: Propranolol HCl 40 mg PO DAILY 11/04/18 [History] Alprazolam [Xanax] 0.5 mg PO BID PRN 03/05/21 [History] Levothyroxine Sodium 175 mcg PO DAILY 03/05/21 [History] OLANZapine [Zyprexa] 50 mg PO HS 03/05/21 [History] Potassium Chloride [Klor-Con 8] 8 meq PO BID 03/05/21 [History] Hx Tetanus, Diphtheria Vaccination/Date Given: Yes Hx Influenza Vaccination/Date Given: Yes Hx Pneumococcal Vaccination/Date Given: No Immunizations Up to Date: Yes Travel Risk - International Travel Have you traveled outside of the country in past 3 weeks: No - Coronavirus Screening Are you exhibiting any of the following symptoms?: No Close contact with a COVID-19 positive Pt in past 14-21 Days: No - Vaccine Status Have you recieved a Covid-19 vaccination: No - Review of Systems Constitutional: No Symptoms, No Fever, No Chills Eyes: No Symptoms Ears, Nose, & Throat: No Symptoms Respiratory: No Symptoms, No Cough, No Dyspnea Cardiac: No Symptoms, No Chest Pain, No Edema, No Syncope Abdominal/Gastrointestinal: No Symptoms, No Abdominal Pain, No Nausea, No Vomiting, No Diarrhea Genitourinary Symptoms: No Symptoms, No Dysuria Musculoskeletal: No Symptoms, No Back Pain, No Neck Pain Skin: No Symptoms, No Rash Neurological: No Symptoms, No Dizziness, No Focal Weakness, No Sensory Changes Psychological: No Symptoms Endocrine: No Symptoms Hematologic/Lymphatic: No Symptoms Immunological/Allergic: No Symptoms All Other Systems: Reviewed and Negative - Past Medical History Pertinent Past Medical History: Yes Neurological History: No Pertinent History, Stroke ENT History: No Pertinent History Cardiac History: Arrhythmia, Coronary Artery Disease, Hypertension Respiratory History: Asthma, Bronchitis, CHF, Pneumonia Endocrine Medical History: Hypothyroidism Musculoskeletal History: Osteoarthritis GI Medical History: Hepatitis, Cirrhosis History: No Pertinent History Psycho-Social History: Anxiety, Bipolar, Depression Male Reproductive Disorders: No Pertinent History Other Medical History: frequent cellulitis in lower extremities - Past Surgical History Past Surgical History: Yes Neuro Surgical History: No Pertinent History Cardiac: No Pertinent History, Cardiac Catheterization Respiratory: No Pertinent History Gastrointestinal: Cholecystectomy Genitourinary: No Pertinent History Musculoskeletal: Orthopedic Surgery Male Surgical History: No Pertinent History Other Surgical History: rt knee,. had cath 5 or 6 years ago. - Social History Smoking Status: Current every day smoker How long have you smoked: 20 yrs Exposure to second hand smoke: Yes Drug Use: none Patient Lives Alone: Yes - Nursing Vital Signs Nursing Vital Signs: Initial Vital Signs Temperature 97.3 F 03/05/21 06:51 Pulse Rate 132 H 03/05/21 06:51 Respiratory Rate 26 H 03/05/21 06:51 Blood Pressure 106/82 03/05/21 06:51 O2 Sat by Pulse Oximetry 95 03/05/21 06:51 Pain Scale Pain Intensity 0 - Physical Exam General Appearance: no apparent distress, alert Eye Exam: PERRL/EOMI Neck Exam: normal inspection, supple Respiratory Exam: prolonged expirations, rhonchi, No lungs clear, No accessory muscle use, No wheezing Cardiovascular/Chest Exam: normal heart sounds, regular rate/rhythm Abdominal/Gastrointestinal Exam: soft, No tenderness, No distention, No mass Extremity Exam: non-tender, normal range of motion, normal inspection, no calf tenderness, no pedal edema Peripheral Pulses Exam: dorsalis-pedis (R): 2+, dorsalis-pedis (L): 2+ Neurologic Exam: alert, oriented x 3, cooperative, beauty counselor II-XII nml as tested, sensation nml, No motor deficits Skin Exam: normal color, warm, No dry SpO2 Interpretation: normal SpO2: 95 O2 Delivery: Room Air - Course Nursing assessment & vital signs reviewed: Yes EKG Interpreted by Me: RATE (132), A-fib, NORMAL AXIS, prolonged QT interval - Radiology Exams Chest X-ray Interpretation: Teleradiologist Report (Portable chest demonstrates bilateral mid to lower lung interstitial alveolar opacities again without consolidation or large effusion. Heart not enlarged. Bony thorax intact with mild degenerative changes.) Ordered Tests: Active Orders 24 hr Category Date Time Status Bedrest with BRP/BSC ROUTINE Activity 03/05/21 11:40 Active Hops Farmworker STAT Care 03/05/21 07:25 Completed Code Status Order ROUTINE Care 03/05/21 11:40 Active EKG-ER Only STAT Care 03/05/21 07:25 Completed IV Care Q6H Care 03/05/21 11:40 Active IV Insertion STAT Care 03/05/21 07:25 Completed Implement Chest Pain Pathway ROUTINE Care 03/05/21 11:[address] in Observation ROUTINE Care 03/05/21 11:40 Active Pulse Oximetry (ED) STAT Care 03/05/21 07:25 Completed Ryann Andrews ROUTINE Care 03/05/21 11:40 Active Weight,Daily 0600 Care 03/05/21 11:40 Active Consistent Carbohydrate Diet 2000 Calorie Diet 03/05/21 Dinner Active CHEST 1 VIEW (PORTABLE) Stat Exams 03/05/21 07:25 Completed ACETAMINOPHEN Stat Lab 03/05/21 09:00 Completed ARTERIAL BLOOD GASES Stat Lab 03/05/21 09:48 Results BLOOD CULTURE Stat Lab 03/05/21 10:10 Received CBC W DIFF Stat Lab 03/05/21 07:00 Completed CMP Stat Lab 03/05/21 07:00 Completed ETHYL ALCOHOL Stat Lab 03/05/21 09:00 Completed LIPID PROFILE AM.LAB Lab 03/06/21 04:00 Ordered Lactic Acid Stat Lab 03/05/21 09:48 Results MAGNESIUM Stat Lab 03/05/21 07:00 Completed NT PRO BNP Stat Lab 03/05/21 07:00 Completed SALICYLATE Stat Lab 03/05/21 09:00 Completed TROPONIN Q3H Lab 03/05/21 07:00 Completed TROPONIN Q3H Lab 03/05/21 10:05 Completed TROPONIN Q3H Lab 03/05/21 13:46 Received TROPONIN Q3H Lab 03/05/21 16:30 Ordered TROPONIN Q3H Lab 03/05/21 19:30 Ordered UA W/RFX UR CULTURE Stat Lab 03/05/21 07:25 Ordered Urine Triage Profile Stat Lab 03/05/21 09:47 Ordered EKG Q8HX2,QAMX3,PRN RT 03/05/21 11:40 Completed Pulse Oximetry Q4H RT 03/05/21 11:40 Active Transfer Order Routine Transfer 03/05/21 Completed Medication Summary Generic Name Dose Route Start Last Admin Trade Name Freq PRN Reason Stop Dose Admin Acetaminophen 650 mg 03/05/21 11:40 Tylenol 325 Mg PO 04/04/21 11:39 Q4H PRN PRN PAIN AND/OR FEVER Al Hydrox/Mg Hydrox/Simethicone 30 ml 03/05/21 11:40 Maalox Es 30 Ml Unit Dose PO 04/04/21 11:39 Q4H PRN PRN INDIGESTION Heparin Sodium (Beef Lung) 0 unit 03/05/21 12:47 Heparin 5000 Units/0.5 Ml (High Risk Med) IV 04/04/21 12:46 UD PRN Diltiazem HCl 100 mls @ 5 mls/hr 03/05/21 09:40 03/05/21 13:23 Cardizem Drip 100 Mg/100 Ml D5w IV 04/04/21 09:39 2 mg/hr .Q20H PRN 2 mls/hr HEART RATE/ A-FIB Titration Protocol 5 MG/HR Heparin Sodium/Dextrose 25,000 units in 250 mls @ 10 mls/hr 03/05/21 13:00 Heparin 25,000 Units/D5w 250ml Premix IV 04/04/21 12:59 .Q24H MENDEL Magnesium Hydroxide 30 - 60 ml 03/05/21 11:40 Milk Of Magnesia 30 Ml PO 04/04/21 11:39 QDP PRN CONSTIPATION Ondansetron HCl 4 mg 03/05/21 11:40 Zofran 4 Mg/2 Ml Vial IV 04/04/21 11:39 Q4H PRN PRN NAUSEA/VOMITING Senna/Docusate Sodium 2 udtab 03/05/21 11:40 Senokot-S Tablet PO 04/04/21 11:39 BID PRN PRN CONSTIPATION Discontinued Medications Generic Name Dose Route Start Last Admin Trade Name Freq PRN Reason Stop Dose Admin Albuterol/Ipratropium 3 ml 03/05/21 09:50 03/05/21 10:08 Duoneb 0.5-3 Mg/3 Ml Neb IH 03/05/21 09:51 3 ml STAT ONE Administration Albuterol/Ipratropium Confirm 03/05/21 10:02 Duoneb 0.5-3 Mg/3 Ml Neb Administered 03/05/21 10:03 Dose 3 ml IH .STK-MED ONE Diltiazem HCl 15 mg 03/05/21 09:40 03/05/21 09:55 Cardizem Iv 50 Mg/10 Ml IV 03/05/21 09:41 15 mg STAT ONE Administration Diltiazem HCl Confirm 03/05/21 09:52 Cardizem Iv 50 Mg/10 Ml Administered 03/05/21 09:53 Dose 50 mg IV .STK-MED ONE Heparin Sodium (Beef Lung) 5,000 unit 03/05/21 12:30 Heparin 5000 Units/0.5 Ml (High Risk Med) IV 03/05/21 12:31 STAT ONE Ceftriaxone Sodium/Dextrose 2 g in 50 mls @ 100 mls/hr 03/05/21 10:37 03/05/21 10:48 Rocephin 2 Gm-D5w 50ml Bag IV 03/05/21 11:06 100 ml/hr STAT STA 100 mls/hr Administration Azithromycin 500 mg in 250 mls @ 250 mls/hr 03/05/21 10:37 03/05/21 13:19 Zithromax 500 Mg/ 250 Ml Nacl Premix IV 03/05/21 11:36 250 mls/hr STAT STA Administration Ceftriaxone Sodium/Dextrose Confirm 03/05/21 10:46 Rocephin 2 Gm-D5w 50ml Bag Administered 03/05/21 10:47 Dose 2 g in 50 mls @ ud IV .STK-MED ONE Methylprednisolone Sodium Succinate 125 mg 03/05/21 09:48 03/05/21 09:55 Solu-Medrol 125 Mg IV 03/05/21 09:49 125 mg STAT ONE Administration Methylprednisolone Sodium Succinate Confirm 03/05/21 09:51 Solu-Medrol 125 Mg Administered 03/05/21 09:52 Dose 125 mg .ROUTE .STK-MED ONE Morphine Sulfate 2 mg 03/05/21 09:10 03/05/21 09:14 Morphine Sulfate 2 Mg Inj IV 03/05/21 09:11 2 mg STAT ONE Administration Morphine Sulfate Confirm 03/05/21 09:12 Morphine Sulfate 2 Mg Inj Administered 03/05/21 09:13 Dose 2 mg .ROUTE .STK-MED ONE Sterile Water Confirm 03/05/21 09:52 Sterile H2o 10 Ml Administered 03/05/21 09:53 Dose 10 ml IJ .STK-MED ONE Lab/Rad Data: Laboratory Result Diagrams 03/05/21 07:00 03/05/21 07:00 Laboratory Results 03/05/21 03/05/21 03/05/21 Range/Units 10:05 09:48 09:00 WBC (4.0-10.5) K/mm3 RBC (4.1-5.6) M/mm3 Hgb (12.5-18.0) gm/dl Hct (42-50) % MCV (78-100) fl MCH (26-32) pg MCHC (32-36) g/dl RDW (11.5-14.0) % Plt Count (150-450) K/mm3 MPV (7.5-11.0) fl Gran % (36.0-66.0) % Eos # (Auto) (0-0.5) Absolute Lymphs (auto) (1.0-4.6) Absolute Monos (auto) (0.0-1.3) Lymphocytes % (24.0-44.0) % Monocytes % (0.0-12.0) % Eosinophils % (0.00-5.0) % Basophils % (0.0-0.4) % Absolute Granulocytes (1.4-6.9) Basophils # (0-0.4) Puncture Site Pending pCO2 50 H (35-45) mmHg pO2 62 L (75-100) mmHg Base Excess 3.4 H (-2.0-2.0) O2 Saturation 88.5 L (94-100) g/dF ABG pH 7.38 (7.35-7.45) ABG HCO3 29.6 H* (22-28) ABG O2 Sat (Measured) 94.9 L (95-100) % Gideon Test RB A-a Gradient 75 a/A Ratio 0.45 Hemoglobin 16.5 Carboxyhemoglobin 5.7 (0.0-6.9) % THgb Methemoglobin 1.0 L (1.4-1.5) % Temperature 37.0 C POC O2 Flow Rate 28 % Sodium (137-145) mmol/L Potassium 3.7 (3.5-5.1) mmol/L Chloride (98-107) mmol/L Carbon Dioxide (22-30) mmol/L Anion Gap (5-15) MEQ/L BUN (9-20) mg/dL Creatinine (0.66-1.25) mg/dL Estimated GFR ML/MIN Glucose (74-106) mg/dL Lactic Acid 1.3 (0.4-2.0) Calcium (8.4-10.2) mg/dL Magnesium (1.6-2.3) mg/dL Total Bilirubin (0.2-1.3) mg/dL AST (17-59) U/L ALT (0-50) U/L Alkaline Phosphatase (38-126) U/L Troponin I < 0.012 (0.000-0.034) ng/mL NT-Pro-B Natriuret Pep (0-900) pg/mL Serum Total Protein (6.3-8.2) g/dL Albumin (3.5-5.0) g/dL Salicylates < 1.0 L (2-20) mg/dL Acetaminophen < 10 L (10-30) ug/ml Ethyl Alcohol < 10 (0-10) mg/dL SARS-CoV-2 (PCR) (NEGATIVE) Slides for Path Review 03/05/21 03/05/21 03/05/21 Range/Units 08:01 07:00 07:00 WBC (4.0-10.5) K/mm3 RBC (4.1-5.6) M/mm3 Hgb (12.5-18.0) gm/dl Hct (42-50) % MCV (78-100) fl MCH (26-32) pg MCHC (32-36) g/dl RDW (11.5-14.0) % Plt Count (150-450) K/mm3 MPV (7.5-11.0) fl Gran % (36.0-66.0) % Eos # (Auto) (0-0.5) Absolute Lymphs (auto) (1.0-4.6) Absolute Monos (auto) (0.0-1.3) Lymphocytes % (24.0-44.0) % Monocytes % (0.0-12.0) % Eosinophils % (0.00-5.0) % Basophils % (0.0-0.4) % Absolute Granulocytes (1.4-6.9) Basophils # (0-0.4) Puncture Site pCO2 (35-45) mmHg pO2 (75-100) mmHg Base Excess (-2.0-2.0) O2 Saturation (94-100) g/dF ABG pH (7.35-7.45) ABG HCO3 (22-28) ABG O2 Sat (Measured) (95-100) % Gideon Test A-a Gradient a/A Ratio Hemoglobin Carboxyhemoglobin (0.0-6.9) % THgb Methemoglobin (1.4-1.5) % Temperature C POC O2 Flow Rate % Sodium 139 (137-145) mmol/L Potassium 3.5 (3.5-5.1) mmol/L Chloride 104 (98-107) mmol/L Carbon Dioxide 28 (22-30) mmol/L Anion Gap 34.5 H (5-15) MEQ/L BUN 5 L (9-20) mg/dL Creatinine 0.55 L (0.66-1.25) mg/dL Estimated GFR > 60.0 ML/MIN Glucose 178 H (74-106) mg/dL Lactic Acid (0.4-2.0) Calcium 8.9 (8.4-10.2) mg/dL Magnesium 1.7 (1.6-2.3) mg/dL Total Bilirubin 0.50 (0.2-1.3) mg/dL AST 26 (17-59) U/L ALT 14 (0-50) U/L Alkaline Phosphatase 116 (38-126) U/L Troponin I < 0.012 (0.000-0.034) ng/mL NT-Pro-B Natriuret Pep 483 (0-900) pg/mL Serum Total Protein 6.8 (6.3-8.2) g/dL Albumin 3.6 (3.5-5.0) g/dL Salicylates (2-20) mg/dL Acetaminophen (10-30) ug/ml Ethyl Alcohol (0-10) mg/dL SARS-CoV-2 (PCR) NEGATIVE (NEGATIVE) Slides for Path Review 03/05/21 Range/Units 07:00 WBC 4.7 (4.0-10.5) K/mm3 RBC 5.32 (4.1-5.6) M/mm3 Hgb 15.9 (12.5-18.0) gm/dl Hct 50.7 H (42-50) % MCV 95.3 (78-100) fl MCH 29.9 (26-32) pg MCHC 31.4 L (32-36) g/dl RDW 17.3 H (11.5-14.0) % Plt Count 68 L (150-450) K/mm3 MPV 11.8 H (7.5-11.0) fl Gran % 58.4 (36.0-66.0) % Eos # (Auto) 0.11 (0-0.5) Absolute Lymphs (auto) 1.18 (1.0-4.6) Absolute Monos (auto) 0.60 (0.0-1.3) Lymphocytes % 25.3 (24.0-44.0) % Monocytes % 12.8 H (0.0-12.0) % Eosinophils % 2.4 (0.00-5.0) % Basophils % 1.1 (0.0-0.4) % Absolute Granulocytes 2.73 (1.4-6.9) Basophils # 0.05 (0-0.4) Puncture Site pCO2 (35-45) mmHg pO2 (75-100) mmHg Base Excess (-2.0-2.0) O2 Saturation (94-100) g/dF ABG pH (7.35-7.45) ABG HCO3 (22-28) ABG O2 Sat (Measured) (95-100) % Gideon Test A-a Gradient a/A Ratio Hemoglobin Carboxyhemoglobin (0.0-6.9) % THgb Methemoglobin (1.4-1.5) % Temperature C POC O2 Flow Rate % Sodium (137-145) mmol/L Potassium (3.5-5.1) mmol/L Chloride (98-107) mmol/L Carbon Dioxide (22-30) mmol/L Anion Gap (5-15) MEQ/L BUN (9-20) mg/dL Creatinine (0.66-1.25) mg/dL Estimated GFR ML/MIN Glucose (74-106) mg/dL Lactic Acid (0.4-2.0) Calcium (8.4-10.2) mg/dL Magnesium (1.6-2.3) mg/dL Total Bilirubin (0.2-1.3) mg/dL AST (17-59) U/L ALT (0-50) U/L Alkaline Phosphatase (38-126) U/L Troponin I (0.000-0.034) ng/mL NT-Pro-B Natriuret Pep (0-900) pg/mL Serum Total Protein (6.3-8.2) g/dL Albumin (3.5-5.0) g/dL Salicylates (2-20) mg/dL Acetaminophen (10-30) ug/ml Ethyl Alcohol (0-10) mg/dL SARS-CoV-2 (PCR) (NEGATIVE) Slides for Path Review YES - Progress Progress: improved Air Movement: good Progress Note: Patient reassessed. He feels better. Patient received 2 mg of morphine. Patient in A. fib with RVR. Cardizem administered. Patient currently on a heparin drip. Patient has an elevated anion gap acidosis. Unclear cause at this point. ABG shows patient is mildly hypoxic. Patient currently on 2 L nasal cannula. Thrombocytopenia observed. Urine tox results pending. Blood cultures obtained. Patient feels better. We will admit to observation. 03/05/21 10:30 03/05/21 10:38 Chest x-ray reveals pulmonary opacities. Blood cultures obtained. Antibiotics infused. Case discussed with Dr. Narvaez covering Dr. Stern who accepts admission to observation. Plan of care discussed with patient. He agrees to admission at [facility] for further evaluation and treatment. 03/05/21 10:52 Patient states that he has had atrial fibrillation in the past. The A. fib resolved spontaneously. It is a likely possibility that patient's A. fib may be triggered by his pneumonia/hypoxemia. Aspirin withheld due to low platelet. 03/05/21 11:08 Patient will be admitted to the ICU as he is on a Cardizem drip. Blood Culture(s) Obtained: No Antibiotics given: No Discussed with DrEva: Shayy Will see patient in: hospital (observation) Counseled pt/family regarding: lab results, diagnosis, rad results - Departure Departure Disposition: Observation Clinical Impression: Thrombocytopenia, High anion gap metabolic acidosis, SOB (shortness of breath), Atrial fibrillation, Bronchitis, Opacity of lung on imaging study, Hypoxemia, Pneumonia Condition: Stable Critical Care Time: No
[2021-03-05 08:14] LABS: SODIUM 139 mmol/L (137-145)
[2021-03-05] MEDS ORDERED: MORPHINE SULFATE 2 MG INJ IV ONE (09:10)
[2021-03-05] MEDS ORDERED: MORPHINE SULFATE 2 MG INJ ONE (09:12)
--- NOTE | 2021-03-05 09:18 | XRAY ---
Indication: Short of breath. Comparison: November 07, 2018. Portable chest again demonstrates bilateral mid to lower lung interstitial alveolar opacities again without consolidation/large effusion. Heart not enlarged. Bony thorax intact with mild degenerative changes.
[2021-03-05 09:37] LABS: Slide Review 1 YES
[2021-03-05] MEDS ORDERED: Cardizem IV 50 MG/10 ML IV ONE ×2 (09:40→09:52)
[2021-03-05] MEDS ORDERED: CARDIZEM DRIP 100 MG/100 ML D5W 100 ML IV PRN (09:40)
[2021-03-05] MEDS ORDERED: solu-MEDROL IV ONE (09:48)
[2021-03-05] MEDS ORDERED: DUONEB 0.5-3 MG/3 ml Neb IH ONE ×2 (09:50→10:02)
[2021-03-05] MEDS ORDERED: solu-MEDROL ONE (09:51)
[2021-03-05] MEDS ORDERED: Sterile H2O 10 ml IJ ONE (09:52)
[2021-03-05 10:04] LABS: ACETAMINOPHEN < 10 ug/ml (10-30); ETHYL ALCOHOL < 10 mg/dL (0-10); SALICYLATE < 1.0 mg/dL (2-20)
[2021-03-05 10:14] LABS: A-aADO2 75; ABG HEMOGLOBIN 16.5; ABG POTASSIUM 3.7 (3.5-5.1); ARTERIAL BLD GAS O2 SATURATION 94.9 % (95-100); ARTERIAL BLOOD GAS BASE EXCESS 3.4 (-2.0-2.0); ARTERIAL BLOOD GAS FIO2 28 %; ARTERIAL BLOOD GAS PCO2 50 mmHg (35-45); ARTERIAL BLOOD GAS PO2 62 mmHg (75-100); ARTERIAL BLOOD GAS pH 7.38 (7.35-7.45); CARBOXYHEMOGLOBIN 5.7 % THgb (0.0-6.9); HCO3- 29.6 (22-28); HGB O2 SAT 88.5 g/dF (94-100); Lactic Acid 1.3 (0.4-2.0)
[2021-03-05] MEDS ORDERED: ROCEPHIN 2 Gm-D5w 50ML BAG** 2 G/50 ML IVPB IV STA (10:37)
[2021-03-05] MEDS ORDERED: Zithromax 500 MG/ 250 ML NaCl Premix 500 MG/250 ML IVPB IV STA (10:37)
[2021-03-05] MEDS ORDERED: ROCEPHIN 2 Gm-D5w 50ML BAG** 2 G/50 ML IVPB IV ONE (10:46)
[2021-03-05] MEDS ORDERED: TYLENOL 325 MG PO PRN (11:40)
[2021-03-05] MEDS ORDERED: MILK OF MAGNESIA 30 ML PO PRN (11:40)
[2021-03-05] MEDS ORDERED: MAALOX ES 30 ML UNIT DOSE PO PRN (11:40)
[2021-03-05] MEDS ORDERED: Zofran 4 MG/2 ML VIAL IV PRN (11:40)
[2021-03-05] MEDS ORDERED: Heparin 5000 UNITS/0.5 ML (HIGH RISK MED) IV ONE (12:30)
[2021-03-05] MEDS ORDERED: Heparin 5000 UNITS/0.5 ML (HIGH RISK MED) IV PRN (12:47)
[2021-03-05] MEDS ORDERED: Heparin 25,000 units/D5W 250ML PREMIX 25,000 UNITS/250 ML BAG IV SCH (13:00)
[2021-03-05 14:26] LABS: INR 1.18 (0.8-3.0); PROTIME 13.9 SECONDS (9.4-12.5)
[2021-03-05 14:29] LABS: PTT 35.5 SECONDS (25.1-36.5)
[2021-03-05] MEDS ORDERED: LACTULOSE PO PRN (15:54)
[2021-03-05] MEDS ORDERED: VENTOLIN COMMON CANISTER IH PRN (15:54)
[2021-03-05 16:16] LABS: Appearance CLEAR (CLEAR); Bilirubin NEGATIVE (NEGATIVE); Blood NEGATIVE Ery/ul (0-5); Glucose NEGATIVE (NEGATIVE); Ketones NEGATIVE (NEGATIVE); Leukocyte Esterase NEGATIVE (NEGATIVE); Nitrite NEGATIVE (NEGATIVE); Protein,Urine Dip NEGATIVE (Negative); Specific Gravity 1.004 (1.005-1.025); Urobilinogen NEGATIVE mg/dL (0-1)
[2021-03-05] MEDS: Inderal 20 MG PO SCH (16:25)
[2021-03-05] MEDS: BUMEX 1 MG PO SCH (16:26)
[2021-03-05] MEDS: SYNTHROID 75 MCG PO SCH (16:26)
[2021-03-05] MEDS: SYNTHROID 100 MCG PO SCH (16:26)
[2021-03-05] MEDS: Prozac 20 MG PO SCH (16:27)
[2021-03-05] MEDS: MORPHINE SULFATE 2 MG INJ IV PRN ×2 (16:29→20:23)
[2021-03-05 16:30] LABS: Amphetamine,Urine NEGATIVE (NEGATIVE); Barbiturate,Urine NEGATIVE (NEGATIVE); Benzodiazepine,Urine POSITIVE (NEGATIVE); Cocaine,Urine NEGATIVE (NEGATIVE); Methadone,Urine NEGATIVE (NEGATIVE); Opiate,Urine NEGATIVE (NEGATIVE); PCP,Urine NEGATIVE (NEGATIVE); THC,Urine NEGATIVE (NEGATIVE)
[2021-03-05] MEDS: ENOXAPARIN SODIUM SQ SCH ×2 (16:40)
[2021-03-05 18:18] LABS: ABG SITE RIGHT BRACHIAL
[2021-03-05 18:19] LABS: ALLEN TEST OK? RB
[2021-03-05] MEDS: Klor Con 10 MEQ PO SCH (21:01)
[2021-03-05] MEDS: zyPREXA 5MG TABLET PO SCH (21:01)
[2021-03-05] MEDS: xanAX 0.5 MG PO PRN (21:01)
[2021-03-05] MEDS: NEURONTIN 300 MG PO SCH (21:06)
[2021-03-05] MEDS ORDERED: OLANZAPINE PO SCH (22:00)
[2021-03-05] MEDS ORDERED: NON-FORMULARY ITEM (Potassium Chloride [Klor-Con 8] 8 MEQ) PO SCH (22:00)
[2021-03-06] MEDS: MORPHINE SULFATE 2 MG INJ IV PRN ×3 (02:59→20:36)
[2021-03-06] MEDS: ENOXAPARIN SODIUM SQ SCH ×2 (04:33)
[2021-03-06 05:24] LABS: Risk Ratio 3.3
[2021-03-06 05:37] LABS: Absolute Neutrophil Ct (ANC) 5.59 (1.4-6.9); BASOPHIL % 0.1 % (0.0-0.4); Basophil (Absolute #) 0.01 (0-0.4); Eosinophil % 0.1 % (0.00-5.0); Eosinophil (Absolute #) 0.01 (0-0.5); Hematocrit 51.7 % (42-50); Hemoglobin 16.5 gm/dl (12.5-18.0); Lymphocyte (Absolute #) 0.69 (1.0-4.6); Lymphocytes % 10.3 % (24.0-44.0); Mean Cell Volume 94.3 fl (78-100); Mean Corpuscular Hemoglobin 30.1 pg (26-32); Mean Corpuscular Hgb Concent. 31.9 g/dl (32-36); Mean Platelet Volume 12.6 fl (7.5-11.0); Monocyte (Absolute #) 0.43 (0.0-1.3); Monocytes % 6.4 % (0.0-12.0); Neutrophil % 83.1 % (36.0-66.0); Platelet Count 66 K/mm3 (150-450); Red Blood Count 5.48 M/mm3 (4.1-5.6); Red Cell Distribution Width 17.2 % (11.5-14.0); White Blood Count 6.7 K/mm3 (4.0-10.5)
[2021-03-06 05:41] LABS: ALBUMIN 3.4 g/dL (3.5-5.0); ALKALINE PHOSPHATASE 93 U/L (38-126); ANION GAP 12.1 MEQ/L (5-15); BLOOD UREA NITROGEN 9 mg/dL (9-20); CHLORIDE 101 mmol/L (98-107); Calcium 8.5 mg/dL (8.4-10.2); Carbon Dioxide 31 mmol/L (22-30); Creatinine 1 0.63 mg/dL (0.66-1.25); EST GLOMERULAR FILTRATION RATE > 60.0 ML/MIN; Glucose 140 mg/dL (74-106); SGOT/AST 25 U/L (17-59); SGPT/ALT 15 U/L (0-50); SODIUM 139 mmol/L (137-145); Total Protein 6.7 g/dL (6.3-8.2)
[2021-03-06] MEDS: VENTOLIN COMMON CANISTER IH PRN ×2 (08:56→19:43)
[2021-03-06] MEDS: Prozac 20 MG PO SCH (09:07)
[2021-03-06] MEDS: NEURONTIN 300 MG PO SCH ×2 (09:07→20:35)
[2021-03-06] MEDS: BUMEX 1 MG PO SCH ×2 (09:07→16:10)
[2021-03-06] MEDS: Cardizem CD 120 MG PO SCH (09:07)
[2021-03-06] MEDS: ELIQUIS 2.5 MG TABLET PO SCH ×2 (09:08→20:35)
[2021-03-06] MEDS: SYNTHROID 75 MCG PO SCH (09:08)
[2021-03-06] MEDS: SYNTHROID 100 MCG PO SCH (09:08)
[2021-03-06] MEDS: Klor Con 10 MEQ PO SCH ×2 (09:08→20:35)
[2021-03-06] MEDS: Inderal 20 MG PO SCH (09:09)
[2021-03-06] MEDS ORDERED: NON-FORMULARY ITEM (Propranolol Hcl [Propranolol Hcl] 40 MG) PO SCH (10:00)
--- NOTE | 2021-03-06 13:52 | XRAY ---
Indication: Bilateral abdomen pain, short of breath, and liver failure. Multiple contiguous images obtained through the chest using 100 cc Isovue 370 contrast and PE protocol. Comparison: None There is adequate opacification of the pulmonary arteries to include the lobar and segmental branches. No pulmonary embolus. Heart is not enlarged. Aorta is minimally arteriosclerotic without aneurysm/dissection. A few tiny mediastinal and left hilar calcified nodes. No pathologic mediastinal/hilar lymphadenopathy. Distal esophagus demonstrates paraesophageal varices. Lungs demonstrates subsegmental atelectasis in the right lower lobe with lesser degree lingula. Patchy groundglass airspace disease seen in both upper lobes. No effusion. Bony thorax demonstrates mild/moderate degenerative changes throughout the spine. Incidental bilateral gynecomastia. CT abdomen/pelvis reported separately. Impression: 1. Negative pulmonary embolus. 2. Patchy groundglass airspace disease in both upper lobes. 3. Incidental chronic bony findings, bilateral gynecomastia, distal paraesophageal varices, and old granulomatous disease.
--- NOTE | 2021-03-06 13:55 | XRAY ---
Indication: Bilateral abdomen pain, short of breath, and liver failure. Multiple contiguous images obtained through the abdomen and pelvis using 100 cc Isovue 370 contrast. Comparison: June 03, 2020. CT chest reported separately. Noncontrasted stomach and bowel loops are nonobstructed. Normal appendix. Midabdomen again demonstrates mesenteric nodes with stranding favoring adenitis. Again incidental cirrhotic liver, 20 cm splenomegaly, splenorenal varices, and cholecystectomy clips. No free fluid/air. Remaining adrenal glands, kidneys, ureters, bladder, and aorta are unremarkable. There remains several tiny periaortic nodes, none pathologically enlarged. Stable minimal bilateral iliac artery calcifications. Osseous structures again demonstrates mild/moderate degenerative changes throughout the thoracolumbar spine and small multilevel thoracolumbar Schmorl nodes. Impression: 1. Again small midabdomen mesenteric nodes with stranding commonly seen with mesenteric atelectasis. 2. Again incidental cirrhotic liver, splenomegaly, splenorenal varices, tiny nonspecific periaortic nodes, and chronic bony findings.
[2021-03-06] MEDS: solu-MEDROL 40 MG IV SCH ×2 (15:53→20:35)
[2021-03-06] MEDS: Levofloxacin 500MG/100ML D5W 500 MG/100 ML BAG IV SCH (15:53)
[2021-03-06] MEDS: TORAdol 30 mg Injection IV PRN (18:44)
[2021-03-06] MEDS: zyPREXA 5MG TABLET PO SCH (20:35)
[2021-03-06] MEDS: xanAX 0.5 MG PO PRN (20:35)
[2021-03-07] MEDS: MORPHINE SULFATE 2 MG INJ IV PRN ×4 (01:57→21:17)
[2021-03-07] MEDS: TORAdol 30 mg Injection IV PRN ×3 (05:06→18:58)
[2021-03-07] MEDS: solu-MEDROL 40 MG IV SCH (05:07)
[2021-03-07 05:46] LABS: Absolute Neutrophil Ct (ANC) 5.08 (1.4-6.9); BASOPHIL % 0.2 % (0.0-0.4); Basophil (Absolute #) 0.01 (0-0.4); Eosinophil (Absolute #) 0 (0-0.5); Hematocrit 50.2 % (42-50); Hemoglobin 15.8 gm/dl (12.5-18.0); Lymphocyte (Absolute #) 0.63 (1.0-4.6); Lymphocytes % 10.6 % (24.0-44.0); Mean Cell Volume 94.9 fl (78-100); Mean Corpuscular Hemoglobin 29.9 pg (26-32); Mean Corpuscular Hgb Concent. 31.5 g/dl (32-36); Mean Platelet Volume 11.9 fl (7.5-11.0); Monocyte (Absolute #) 0.22 (0.0-1.3); Monocytes % 3.7 % (0.0-12.0); Neutrophil % 85.5 % (36.0-66.0); Platelet Count 59 K/mm3 (150-450); Red Blood Count 5.29 M/mm3 (4.1-5.6); Red Cell Distribution Width 17.2 % (11.5-14.0); White Blood Count 5.9 K/mm3 (4.0-10.5)
[2021-03-07 06:24] LABS: ALBUMIN 3.4 g/dL (3.5-5.0); ALKALINE PHOSPHATASE 96 U/L (38-126); ANION GAP 13.1 MEQ/L (5-15); BLOOD UREA NITROGEN 15 mg/dL (9-20); CHLORIDE 101 mmol/L (98-107); Calcium 8.9 mg/dL (8.4-10.2); Carbon Dioxide 31 mmol/L (22-30); EST GLOMERULAR FILTRATION RATE > 60.0 ML/MIN; Glucose 129 mg/dL (74-106); Potassium 4.5 mmol/L (3.5-5.1); SGOT/AST 22 U/L (17-59); SGPT/ALT 15 U/L (0-50); SODIUM 140 mmol/L (137-145); Total Protein 6.7 g/dL (6.3-8.2)
[2021-03-07] MEDS ORDERED: HUMALOG SQ PRN (07:20)
[2021-03-07] MEDS: VENTOLIN COMMON CANISTER IH PRN ×2 (08:24→20:24)
--- NOTE | 2021-03-07 08:42 | XRAY ---
Indication: Follow-up pneumonia. Comparison: March 05, 2021. PA/lateral chest unchanged again demonstrating bilateral mid to lower lung interstitial opacities without focal infiltrate, consolidation, or effusion. Heart and mediastinal structures within normal limits. No new cardiopulmonary abnormalities.
[2021-03-07] MEDS: LACTULOSE 20 GM/30ML UD CUP PO PRN ×2 (09:23→17:18)
[2021-03-07] MEDS: DELTASONE 20 MG PO SCH (09:25)
[2021-03-07] MEDS: SYNTHROID 100 MCG PO SCH (09:25)
[2021-03-07] MEDS: Cardizem CD 120 MG PO SCH (09:25)
[2021-03-07] MEDS: NEURONTIN 300 MG PO SCH ×2 (09:25→21:10)
[2021-03-07] MEDS: Prozac 20 MG PO SCH (09:25)
[2021-03-07] MEDS: SYNTHROID 75 MCG PO SCH (09:25)
[2021-03-07] MEDS: ELIQUIS 2.5 MG TABLET PO SCH ×2 (09:26→21:11)
[2021-03-07] MEDS: Inderal 20 MG PO SCH (09:26)
[2021-03-07] MEDS: BUMEX 1 MG PO SCH ×2 (09:26→17:18)
[2021-03-07] MEDS: Klor Con 10 MEQ PO SCH ×2 (09:26→21:10)
[2021-03-07] MEDS: Levofloxacin 500MG/100ML D5W 500 MG/100 ML BAG IV SCH (10:50)
--- NOTE | 2021-03-07 11:10 | HP ---
CHIEF COMPLAINT: Shortness of breath. HISTORY OF PRESENT ILLNESS: The patient is a 50 year-old white male patient presenting with complaints of shortness of breath for the past couple of days, unable to sleep. He did not have any chest pain although he did report a productive cough with clear sputum. The patient has a medical history significant for liver failure. He has esophageal varices. He apparently had been tested recently and his viral titers were essentially undetectable. He is apparently from what he says on a transplantation list for a liver at [facility]. The patient reports he recently missed a visit there. PAST MEDICAL/SURGICAL HISTORY: The patient reports previous history otherwise of stroke. We found the patient does have a history of atrial fibrillation. He has coronary artery disease, hypertension, asthma, bronchitis, congestive heart failure, pneumonia, hypothyroid, osteoarthritis, hepatitis with cirrhosis, anxiety, depression. HOME MEDICATIONS: Propranolol 40 mg a day, alprazolam 0.5 mg b.i.d., levothyroxine 175 mcg daily, Zyprexa 50 mg at night, potassium 8 mEq b.i.d. ALLERGIES: NITROFURANTOIN. PHYSICAL EXAMINATION: The patient's vital signs on admission showed his temperature 97.3F, pulse 132, respiratory rate 26 and blood pressure 106/82. O2 95% on room air. The patient found on rhythm tracing to be in atrial fibrillation with rapid ventricular response. HEENT: Normocephalic, atraumatic. Pupils equal round reactive to light. Extraocular movements intact. Oropharynx is pink and moist. NECK: Supple without lymphadenopathy or JVD. CHEST: Essentially clear. HEART: Irregular. The patient is on a Cardizem drip currently at a rate of 100. ABDOMEN: Soft. No palpable masses. EXTREMITIES: Without cyanosis, clubbing or edema. NEUROLOGIC: The patient is alert and oriented x3. LAB DATA AND TESTS: His lab studies otherwise show procalcitonin at 0.043 and 0.049 both under normal limits with concern for bacterial infection. The patient's metabolic panel showed a sugar 140, BUN 9, creatinine 0.63. His liver enzymes are not elevated. His albumin was slightly low at 3.4. His white count 6,700, hemoglobin 16.5. His PLT count however is low at 66,000. The patient has had persistent thrombocytopenia. His troponin is less than 0.012. Lipid panel showed a triglyceride of 128, HDL 53, LDL 93. His pH on admission showed 7.38, pCO2 of 50, pO2 of 62. Lactic acid 1.3. A second troponin was less than 0.012. Lab data showed him to be positive for benzodiazepine but otherwise negative on his drug screen. UA was normal. He did have a chest x-ray showing some patchy possible infiltrates. CT scan followed and showed a ground-glass appearance. We did obtain a consultation with Dr. Felice Gallegos who placed the patient on IV steroids and IV antibiotics. His test was negative for pulmonary embolism and showed a patchy ground-glass airspace disease in both upper lobes. ASSESSMENT: The patient currently is being weaned off his Cardizem drip to Cardizem orally. He currently still maintains heart rhythm of atrial fibrillation but the rate is currently in the 60's. The patient has been placed on some medication by the business control specialist who reports that he cannot actually see the patient until 03/08/2021 if he is still in the hospital at that time but he did initiate treatment over the phone.
[2021-03-07] MEDS: Senokot-S Tablet PO PRN (12:31)
[2021-03-07] MEDS: zyPREXA 5MG TABLET PO SCH (21:11)
[2021-03-07] MEDS: xanAX 0.5 MG PO PRN (21:15)
[2021-03-08] MEDS: MORPHINE SULFATE 2 MG INJ IV PRN ×2 (01:50→07:51)
[2021-03-08] MEDS: TORAdol 30 mg Injection IV PRN (05:16)
[2021-03-08] MEDS: Senokot-S Tablet PO PRN (05:17)
[2021-03-08] MEDS: LACTULOSE 20 GM/30ML UD CUP PO PRN (05:18)
[2021-03-08 06:13] LABS: Absolute Neutrophil Ct (ANC) 5.31 (1.4-6.9); BASOPHIL % 0.3 % (0.0-0.4); Basophil (Absolute #) 0.02 (0-0.4); Eosinophil % 0.1 % (0.00-5.0); Eosinophil (Absolute #) 0.01 (0-0.5); Hematocrit 48.3 % (42-50); Hemoglobin 15.1 gm/dl (12.5-18.0); Lymphocyte (Absolute #) 0.96 (1.0-4.6); Lymphocytes % 13.4 % (24.0-44.0); Mean Cell Volume 94.7 fl (78-100); Mean Corpuscular Hemoglobin 29.6 pg (26-32); Mean Corpuscular Hgb Concent. 31.3 g/dl (32-36); Mean Platelet Volume 11.1 fl (7.5-11.0); Monocyte (Absolute #) 0.88 (0.0-1.3); Monocytes % 12.3 % (0.0-12.0); Neutrophil % 73.9 % (36.0-66.0); Platelet Count 64 K/mm3 (150-450); Red Cell Distribution Width 17.3 % (11.5-14.0); White Blood Count 7.2 K/mm3 (4.0-10.5)
[2021-03-08 07:04] LABS: ALBUMIN 3.5 g/dL (3.5-5.0); ALKALINE PHOSPHATASE 104 U/L (38-126); ANION GAP 9.1 MEQ/L (5-15); BLOOD UREA NITROGEN 19 mg/dL (9-20); CHLORIDE 101 mmol/L (98-107); Calcium 8.7 mg/dL (8.4-10.2); Carbon Dioxide 33 mmol/L (22-30); Creatinine 1 0.69 mg/dL (0.66-1.25); EST GLOMERULAR FILTRATION RATE > 60.0 ML/MIN; Glucose 120 mg/dL (74-106); Potassium 4.1 mmol/L (3.5-5.1); SGOT/AST 22 U/L (17-59); SGPT/ALT 16 U/L (0-50); SODIUM 139 mmol/L (137-145); Total Protein 6.8 g/dL (6.3-8.2)
[2021-03-08 07:49] LABS: Slide Review 1 YES
[2021-03-08 08:03] VITALS: BP 119/80
[2021-03-08 08:56] VITALS: PULSE 83; O2SAT 93
[2021-03-08 09:17] LABS: HBsAg Screen Negative (Negative); Hep A Ab, IgM Negative (Negative); Hep B Core Ab, IgM Negative (Negative)
[2021-03-08] MEDS: Levofloxacin 500MG/100ML D5W 500 MG/100 ML BAG IV SCH (09:41)
[2021-03-08] MEDS: BUMEX 1 MG PO SCH (09:42)
[2021-03-08] MEDS: DELTASONE 20 MG PO SCH (09:42)
[2021-03-08] MEDS: SYNTHROID 100 MCG PO SCH (09:42)
[2021-03-08] MEDS: NEURONTIN 300 MG PO SCH (09:42)
[2021-03-08] MEDS: Klor Con 10 MEQ PO SCH (09:42)
[2021-03-08] MEDS: Prozac 20 MG PO SCH (09:42)
[2021-03-08] MEDS: SYNTHROID 75 MCG PO SCH (09:42)
[2021-03-08] MEDS: ELIQUIS 2.5 MG TABLET PO SCH (09:42)
[2021-03-08] MEDS: Cardizem CD 120 MG PO SCH (09:42)
[2021-03-08] MEDS: Inderal 20 MG PO SCH (09:42)
--- NOTE | 2021-03-08 11:25 | PCM.DS ---
Discharge Summary Date of Admission: 03/06/21 17:01 Admitting Physician: BILLY OWEN Consults: Consults on Case 03/06/21 08:41 Consult Pulmonology ROUTINE Primary Care Provider: KETAN ECHEVARRIA Allergies Allergies nitrofurantoin [From Macrobid] Allergy (Verified 03/05/21 07:02) [facility] Summary - Hospital Course Hospital Course: patient was admitted with new onset a fib with rvr, rate controlled on po cardi zem and started on eliquis. he is feeling well, not requiring any oxygen, started on levaquin for groundglass opacity on ct, he is feeling well and requesting discharge today, has a history of cirrhosis and is hemodynamically stable - Vitals & Intake/Output Vital Signs: Vital Signs Temperature 97.8 F 03/08/21 08:00 Pulse Rate 83 03/08/21 08:53 Respiratory Rate 18 03/08/21 08:53 Blood Pressure 119/80 03/08/21 08:00 O2 Sat by Pulse Oximetry 93 L 03/08/21 08:53 Intake & Output: Intake & Output 03/05/21 03/06/21 03/07/21 03/08/21 11:59 11:59 11:59 11:59 Intake Total 3066 3040 1680 Output Total 7150 3450 2200 Balance -7156 -534 -149 Weight 181.8 kg 183 kg 187.9 kg - Lab Result Diagrams: 03/08/21 05:54 03/08/21 05:54 Lab Results-Last 24 Hrs: Lab Results-Last 24 Hours 03/07/21 03/07/21 03/07/21 Range/Units 11:30 16:14 20:33 WBC (4.0-10.5) K/mm3 RBC (4.1-5.6) M/mm3 Hgb (12.5-18.0) gm/dl Hct (42-50) % MCV (78-100) fl MCH (26-32) pg MCHC (32-36) g/dl RDW (11.5-14.0) % Plt Count (150-450) K/mm3 MPV (7.5-11.0) fl Gran % (36.0-66.0) % Eos # (Auto) (0-0.5) Absolute Lymphs (auto) (1.0-4.6) Absolute Monos (auto) (0.0-1.3) Lymphocytes % (24.0-44.0) % Monocytes % (0.0-12.0) % Eosinophils % (0.00-5.0) % Basophils % (0.0-0.4) % Absolute Granulocytes (1.4-6.9) Basophils # (0-0.4) Sodium (137-145) mmol/L Potassium (3.5-5.1) mmol/L Chloride (98-107) mmol/L Carbon Dioxide (22-30) mmol/L Anion Gap (5-15) MEQ/L BUN (9-20) mg/dL Creatinine (0.66-1.25) mg/dL Estimated GFR ML/MIN Glucose (74-106) mg/dL POC Glucometer 198 H 254 H 375 H (74 to 106) mg/dL Calcium (8.4-10.2) mg/dL Total Bilirubin (0.2-1.3) mg/dL AST (17-59) U/L ALT (0-50) U/L Alkaline Phosphatase (38-126) U/L Serum Total Protein (6.3-8.2) g/dL Albumin (3.5-5.0) g/dL Slides for Path Review 03/08/21 03/08/21 03/08/21 Range/Units 05:54 05:54 07:24 WBC 7.2 (4.0-10.5) K/mm3 RBC 5.10 (4.1-5.6) M/mm3 Hgb 15.1 (12.5-18.0) gm/dl Hct 48.3 (42-50) % MCV 94.7 (78-100) fl MCH 29.6 (26-32) pg MCHC 31.3 L (32-36) g/dl RDW 17.3 H (11.5-14.0) % Plt Count 64 L (150-450) K/mm3 MPV 11.1 H (7.5-11.0) fl Gran % 73.9 H (36.0-66.0) % Eos # (Auto) 0.01 (0-0.5) Absolute Lymphs (auto) 0.96 L (1.0-4.6) Absolute Monos (auto) 0.88 (0.0-1.3) Lymphocytes % 13.4 L (24.0-44.0) % Monocytes % 12.3 H (0.0-12.0) % Eosinophils % 0.1 (0.00-5.0) % Basophils % 0.3 (0.0-0.4) % Absolute Granulocytes 5.31 (1.4-6.9) Basophils # 0.02 (0-0.4) Sodium 139 (137-145) mmol/L Potassium 4.1 (3.5-5.1) mmol/L Chloride 101 (98-107) mmol/L Carbon Dioxide 33 H (22-30) mmol/L Anion Gap 9.1 (5-15) MEQ/L BUN 19 (9-20) mg/dL Creatinine 0.69 (0.66-1.25) mg/dL Estimated GFR > 60.0 ML/MIN Glucose 120 H (74-106) mg/dL POC Glucometer 111 H (74 to 106) mg/dL Calcium 8.7 (8.4-10.2) mg/dL Total Bilirubin 0.40 (0.2-1.3) mg/dL AST 22 (17-59) U/L ALT 16 (0-50) U/L Alkaline Phosphatase 104 (38-126) U/L Serum Total Protein 6.8 (6.3-8.2) g/dL Albumin 3.5 (3.5-5.0) g/dL Slides for Path Review YES Micro Results-Entire Visit: Microbiology 03/05/21 10:10 Blood Culture - Preliminary Blood NO GROWTH TO DATE 03/05/21 10:05 Blood Culture - Preliminary Blood NO GROWTH TO DATE Accuchecks Date 03/07/21 Date 03/07/21 Date 03/07/21 - Radiology Exams Ordered Rad Exams-Entire Visit: Radiology Procedures Category Date Time Status ABDOMEN AND PELVIS W CONTRAST [CT] Routine Exams 03/06/21 10:24 Completed CHEST 2 VIEWS (PA AND LAT) DAILY Exams 03/07/21 06:00 Completed CHEST WITH CONTRAST [CT] Routine Exams 03/06/21 10:24 Completed - Procedures and Test Procedures and Tests throughout Hospitalization: Therapy Orders & Screens 03/05/21 10:17 Respiratory Therapy Assessment DAILY Comment: 03/05/21 11:40 EKG Q8HX2,QAMX3,PRN Comment: 03/05/21 12:29 Smoking Cessation Education ONCE Comment: Diagnosis: Atrial fibrillation with RVR Smoking Status: Current every day smoker How long have you smoked: 20yrs Have you smoked in the past 12 months: Yes Approximately how many cigarettes per day: 20 Do you dip or chew tobacco: No 03/05/21 15:45 Oxygen NASAL CANNULA 2 lpm Comment: O2 SAT 88% ON RM AIR Diagnosis: Atrial fibrillation with RVR 03/05/21 16:00 EKG ONCE Comment: Diagnosis: Atrial fibrillation with RVR 03/06/21 05:00 EKG ONCE Comment: Diagnosis: Atrial fibrillation with RVR 03/06/21 15:24 BiPap/CPAP ROUTINE Comment: bipap as needed Diagnosis: Atrial fibrillation with RVR 03/07/21 05:00 EKG ONCE Comment: Diagnosis: Atrial fibrillation with RVR 03/08/21 05:00 EKG ONCE Comment: Diagnosis: Atrial fibrillation with RVR Discharge Exam General Appearance: no apparent distress, obese Neurologic Exam: alert, oriented x 3 Respiratory Exam: normal breath sounds, lungs clear, No respiratory distress Cardiovascular Exam: irregular Gastrointestinal/Abdomen Exam: soft, No tenderness, No mass Extremity Exam: normal inspection, normal range of motion Skin Exam: normal color, warm, dry Final Diagnosis/Problem List - Final Discharge Diagnosis/Problem (1) Atrial fibrillation Current Visit: Yes Status: Acute Assessment & Plan: continue cardizem and eliquis, doing well Code(s): I48.91 - UNSPECIFIED ATRIAL FIBRILLATION (2) Pneumonia Current Visit: Yes Status: Acute Assessment & Plan: home on levaquin, no oxygen requirment, afebrile and feeling better Code(s): J18.9 - PNEUMONIA, UNSPECIFIED ORGANISM (3) Cirrhosis Current Visit: No Status: Chronic Assessment & Plan: stable - Discharge Disposition: Home, Self-Care Condition: Stable Prescriptions: New Diltiazem HCl 120 mg [Cardizem CD 120 MG] 240 mg PO DAILY #30 cap.sr.24h Prednisone 20 mg [Deltasone 20 mg] 20 mg PO DAILY #7 tablet Apixaban [Eliquis] 5 mg PO BID #60 tablet Levofloxacin [Levaquin] 500 mg PO DAILY #7 tablet Continue Propranolol HCl 40 mg PO DAILY Bumetanide 1 mg [Bumex 1 mg] 2 mg PO BID DIURETIC 30 Days #60 tablet Lactulose 15 ml PO QID PRN PRN 30 Days #500 ml PRN Reason: Agitation Fluoxetine HCl 20 mg [Prozac 20 MG] 20 mg PO DAILY 30 Days #30 cap Albuterol Common Canister [Ventolin Common Canister] 2 puffs IH Q4HPRN PRN 30 Days #1 puff PRN Reason: Shortness Of Breath/Wheezing Rifaximin [Xifaxan] 550 mg PO BID 30 Days #60 tablet Potassium Chloride [Klor-Con 8] 8 meq PO BID Levothyroxine Sodium 175 mcg PO DAILY OLANZapine [Zyprexa] 50 mg PO HS Alprazolam [Xanax] 0.5 mg PO BID PRN Gabapentin 300 mg [Neurontin 300 mg] 600 mg PO TID PRN PRN Reason: Pain Follow up with: KETAN ECHEVARRIA [Primary Care Provider] - 03/14/21 1:15 pm
[2021-03-08 13:51] LABS: HIV Screen 4th Generation wRfx Non Reactive (Non Reactive); Hep C Virus Ab >11.0 s/co ratio (0.0-0.9)
== END 2021-03-08 12:34 | disposition home or self-care (01) | DRG 308 ==
LOC: ED 06:50 → ICU 11:34 → OBSVTOIN 03-06 17:01
PROVIDERS: ADMIT Family Medicine; ATTEND Family Medicine
DX: I48.91 Unspecified atrial fibrillation (principal); J18.9 Pneumonia, unspecified organism; D69.6 Thrombocytopenia, unspecified; K74.60 Unspecified cirrhosis of liver; Z79.899 Other long term (current) drug therapy; E03.9 Hypothyroidism, unspecified; I10 Essential (primary) hypertension; Z86.79 Personal history of other diseases of the circulatory system; F17.200 Nicotine dependence, unspecified, uncomplicated; Z20.828 Contact with and (suspected) exposure to other viral communicable diseases; Z79.01 Long term (current) use of anticoagulants
CPT/HCPCS: 36000; 36415; 36600; 71045; 71046; 71260; 74177; 80053; 80061; 80074; 80307; 81001; 82140; 82375; 82803; 82947; 83036; 83605; 83721; 83735; 83880; 84145; 84484; 85025; 85610; 85730; 87040; 87389; 93005; 93041; 93268; 94002; 94003; 94640; 94760; 94762; 96365; 96367; 96374; 96375; 96376; 99285; G0378; G0480; U0003; J0456; J0696; J1650; J1817; J1885; J1956; J2270; J2920; J2930; A9270-GY

== ENCOUNTER 2021-03-10 06:02 | Emergency (ER) | payer MEDICARE ==
[2021-03-10] MEDS ORDERED: DUONEB 0.5-3 MG/3 ml Neb IH ONE ×2 (06:16→06:37)
[2021-03-10] MEDS ORDERED: solu-MEDROL 125 MG, Sterile H2O 10 ml 2 ML IV ONE ×2 (06:16)
[2021-03-10] MEDS ORDERED: solu-MEDROL ONE (06:35)
--- NOTE | 2021-03-10 06:45 | ERPHSYRPT ---
- History of Present Illness Time Seen by Provider: 03/10/21 06:06 Source: patient Exam Limitations: no limitations Patient Subjective Stated Complaint: pt states he was dc'd from [facility] on wednesday after being diagnosed with pne. states he has been getting progressively short of breath since Triage Nursing Assessment: pt alert and oriented, answers questions approp. pt back per wheelchair, transfers to stretcher per self. pt short of breath with exertion. exp wheezes noted. skin warm and dry. Physician History: 50 years old male with history of cirrhosis, recently diagnosed atrial fibrillation on Cardizem/Eliquis, COPD, tobacco abuse, congestive heart failure who was admitted last week for shortness of breath with bilateral pneumonia, dischargeD 2 days ago presented back with increasing shortness of breath paulie cially with lying down, exertion and cough productive of clear to yellow sputum. Patient reports minimal chest discomfort. Denies fever or chills. Timing/Duration: week(s) (1), gradual onset, worse Activities at Onset: rest Severity of Dyspnea-Max: moderate Severity of Dyspnea-Current: moderate Modifying Factors: Improves With: lying down Associated Symptoms: cough, chest pain/discomfort, edema, ankle swelling, tightness Allergies/Adverse Reactions: nitrofurantoin [From Macrobid] Allergy (Verified 03/05/21 07:02) Rash Home Medications: Propranolol HCl 40 mg PO DAILY 11/04/18 [History] Alprazolam [Xanax] 0.5 mg PO BID PRN 03/05/21 [History] Gabapentin 300 mg [Neurontin 300 mg] 600 mg PO TID PRN 03/05/21 [History] Levothyroxine Sodium 175 mcg PO DAILY 03/05/21 [History] OLANZapine [Zyprexa] 50 mg PO HS 03/05/21 [History] Potassium Chloride [Klor-Con 8] 8 meq PO BID 03/05/21 [History] Hx Tetanus, Diphtheria Vaccination/Date Given: Yes Hx Influenza Vaccination/Date Given: Yes Hx Pneumococcal Vaccination/Date Given: No Immunizations Up to Date: Yes Travel Risk - International Travel Have you traveled outside of the country in past 3 weeks: No - Coronavirus Screening Are you exhibiting any of the following symptoms?: No Close contact with a COVID-19 positive Pt in past 14-21 Days: No - Vaccine Status Have you recieved a Covid-19 vaccination: No - Review of Systems Constitutional: Fatigue, Weakness Eyes: No Symptoms Ears, Nose, & Throat: No Symptoms Respiratory: Cough, Dyspnea, Dyspnea on Exertion ([place]), Wheezing Cardiac: Edema, Palpitations Abdominal/Gastrointestinal: Abdominal Pain (Right upper quadrant chronic) Genitourinary Symptoms: No Symptoms Musculoskeletal: No Symptoms Skin: No Symptoms Neurological: No Symptoms Psychological: No Symptoms Hematologic/Lymphatic: No Symptoms Immunological/Allergic: No Symptoms - Past Medical History Pertinent Past Medical History: Yes Neurological History: No Pertinent History ENT History: No Pertinent History Cardiac History: Arrhythmia, Coronary Artery Disease, Hypertension Respiratory History: Asthma, Bronchitis, CHF, Pneumonia Endocrine Medical History: Hypothyroidism Musculoskeletal History: Osteoarthritis GI Medical History: Hepatitis, Cirrhosis History: No Pertinent History Psycho-Social History: Anxiety, Bipolar, Depression Male Reproductive Disorders: No Pertinent History Other Medical History: frequent cellulitis in lower extremities - Past Surgical History Past Surgical History: Yes Neuro Surgical History: No Pertinent History Cardiac: No Pertinent History, Cardiac Catheterization Respiratory: No Pertinent History Gastrointestinal: Cholecystectomy Genitourinary: No Pertinent History Musculoskeletal: Orthopedic Surgery Male Surgical History: No Pertinent History Other Surgical History: rt knee,. had cath 5 or 6 years ago. - Social History Smoking Status: Current every day smoker How long have you smoked: 20 yrs Exposure to second hand smoke: Yes Drug Use: none Patient Lives Alone: No - Nursing Vital Signs Nursing Vital Signs: Initial Vital Signs Temperature 98.1 F 03/10/21 06:13 Pulse Rate 106 H 03/10/21 06:13 Respiratory Rate 22 03/10/21 06:13 Blood Pressure 130/76 03/10/21 06:13 O2 Sat by Pulse Oximetry 95 03/10/21 06:13 Pain Scale Pain Intensity 6 - Physical Exam General Appearance: no apparent distress, alert, anxiety Eye Exam: PERRL/EOMI, eyes nml inspection Ears, Nose, Throat Exam: hearing grossly normal, pharyngeal erythema Neck Exam: normal inspection, non-tender, full range of motion Respiratory Exam: diminished breath sounds, rhonchi, wheezing Cardiovascular/Chest Exam: normal heart sounds, tachycardia, irregular Abdominal/Gastrointestinal Exam: soft, normal bowel sounds, tenderness (Right upper quadrant) Extremity Exam: non-tender, normal range of motion, swelling (Chronic venous stasis bilaterally) Neurologic Exam: alert, oriented x 3, cooperative Skin Exam: normal color SpO2 Interpretation: normal SpO2: 95 O2 Delivery: Room Air - Course EKG Interpreted by Me: RATE (108), A-fib, NORMAL AXIS, prolonged QT interval, Non-specific ST Changes Ordered Tests: Medication Summary Discontinued Medications Generic Name Dose Route Start Last Admin Trade Name Lonnie PRN Reason Stop Dose Admin Albuterol/Ipratropium 3 ml 03/10/21 06:16 03/10/21 06:50 Duoneb 0.5-3 Mg/3 Ml Neb IH 03/10/21 06:17 3 ml STAT ONE Administration Albuterol/Ipratropium Confirm 03/10/21 06:37 Duoneb 0.5-3 Mg/3 Ml Neb Administered 03/10/21 06:38 Dose 3 ml IH .STK-MED ONE Methylprednisolone Sodium 0 mg 03/10/21 06:16 03/10/21 06:39 Succinate 125 mg/ Sterile IV 03/10/21 06:17 125 mg Water 2 ml STAT ONE Administration Furosemide 20 mg 03/10/21 09:21 03/10/21 09:57 Lasix 20 Mg/2 Ml IV 03/10/21 09:22 20 mg ONCE STA Administration Furosemide Confirm 03/10/21 09:56 Lasix 40 Mg/4 Ml Administered 03/10/21 09:57 Dose 40 mg .ROUTE .STK-MED ONE Sodium Chloride 1,000 mls @ 999 mls/hr 03/10/21 07:30 03/10/21 07:38 Sodium Chloride 0.9% 1000 Ml IV 03/10/21 08:30 999 mls/hr .Q1H1M STA Administration Sodium Chloride Confirm 03/10/21 07:36 Sodium Chloride 0.9% 1000 Ml Administered 03/10/21 07:37 Dose 1,000 mls @ ud .ROUTE .STK-MED ONE Methylprednisolone Sodium Succinate Confirm 03/10/21 06:35 Solu-Medrol Administered 03/10/21 06:36 Dose 125 mg .ROUTE .STK-MED ONE Morphine Sulfate 4 mg 03/10/21 07:12 03/10/21 07:31 Morphine Sulfate 4 Mg Inj IV 03/10/21 07:13 4 mg STAT ONE Administration Morphine Sulfate Confirm 03/10/21 07:27 Morphine Sulfate 4 Mg Inj Administered 03/10/21 07:28 Dose 4 mg .ROUTE .STK-MED ONE Potassium Chloride 40 meq 03/10/21 07:14 03/10/21 07:31 Klor Con 10 Meq PO 03/10/21 07:15 40 meq STAT ONE Administration Potassium Chloride Confirm 03/10/21 07:26 Klor Con 10 Meq Administered 03/10/21 07:27 Dose 40 meq PO .STK-MED ONE Lab/Rad Data: Laboratory Result Diagrams 03/10/21 06:40 03/10/21 06:40 Laboratory Results 03/10/21 03/10/21 03/10/21 Range/Units 09:05 09:00 09:00 WBC (4.0-10.5) K/mm3 RBC (4.1-5.6) M/mm3 Hgb (12.5-18.0) gm/dl Hct (42-50) % MCV (78-100) fl MCH (26-32) pg MCHC (32-36) g/dl RDW (11.5-14.0) % Plt Count (150-450) K/mm3 MPV (7.5-11.0) fl Gran % (36.0-66.0) % Eos # (Auto) (0-0.5) Absolute Lymphs (auto) (1.0-4.6) Absolute Monos (auto) (0.0-1.3) Lymphocytes % (24.0-44.0) % Monocytes % (0.0-12.0) % Eosinophils % (0.00-5.0) % Basophils % (0.0-0.4) % Absolute Granulocytes (1.4-6.9) Basophils # (0-0.4) pO2/FiO2 Ratio 21.0 % VBG pH 7.46 H (7.32-7.42) VBG pCO2 at Pat Temp 50 (42-55) mm/Hg VBG pO2 at Pat Temp 56 H (25-40) mm/Hg VBG HCO3 35.6 H* (22-28) meq/L VBG O2 Sat (Tom) 93.3 L (95-100) VBG Base Excess 10.1 H (-2.0-2.0) VBG Hemoglobin 16.0 VBG Carboxyhemoglobin 7.7 H* (0.0-6.9) % T HGB POC Potassium 3.6 (3.5-5.1) Sodium (137-145) mmol/L Potassium (3.5-5.1) mmol/L Chloride (98-107) mmol/L Carbon Dioxide (22-30) mmol/L Anion Gap (5-15) MEQ/L BUN (9-20) mg/dL Creatinine (0.66-1.25) mg/dL Estimated GFR ML/MIN Glucose (74-106) mg/dL Lactic Acid 1.4 (0.4-2.0) Calcium (8.4-10.2) mg/dL Magnesium (1.6-2.3) mg/dL Total Bilirubin (0.2-1.3) mg/dL AST (17-59) U/L ALT (0-50) U/L Alkaline Phosphatase (38-126) U/L Troponin I < 0.012 (0.000-0.034) ng/mL NT-Pro-B Natriuret Pep (0-900) pg/mL Serum Total Protein (6.3-8.2) g/dL Albumin (3.5-5.0) g/dL Slides for Path Review 03/10/21 03/10/21 03/10/21 Range/Units 06:55 06:40 06:40 WBC (4.0-10.5) K/mm3 RBC (4.1-5.6) M/mm3 Hgb (12.5-18.0) gm/dl Hct (42-50) % MCV (78-100) fl MCH (26-32) pg MCHC (32-36) g/dl RDW (11.5-14.0) % Plt Count (150-450) K/mm3 MPV (7.5-11.0) fl Gran % (36.0-66.0) % Eos # (Auto) (0-0.5) Absolute Lymphs (auto) (1.0-4.6) Absolute Monos (auto) (0.0-1.3) Lymphocytes % (24.0-44.0) % Monocytes % (0.0-12.0) % Eosinophils % (0.00-5.0) % Basophils % (0.0-0.4) % Absolute Granulocytes (1.4-6.9) Basophils # (0-0.4) pO2/FiO2 Ratio % VBG pH (7.32-7.42) VBG pCO2 at Pat Temp (42-55) mm/Hg VBG pO2 at Pat Temp (25-40) mm/Hg VBG HCO3 (22-28) meq/L VBG O2 Sat (Tom) (95-100) VBG Base Excess (-2.0-2.0) VBG Hemoglobin VBG Carboxyhemoglobin (0.0-6.9) % T HGB POC Potassium (3.5-5.1) Sodium 145 (137-145) mmol/L Potassium 2.9 L* (3.5-5.1) mmol/L Chloride 95 L (98-107) mmol/L Carbon Dioxide 38 H (22-30) mmol/L Anion Gap 15.1 H (5-15) MEQ/L BUN 16 (9-20) mg/dL Creatinine 0.65 L (0.66-1.25) mg/dL Estimated GFR > 60.0 ML/MIN Glucose 144 H (74-106) mg/dL Lactic Acid 2.4 H (0.4-2.0) Calcium 8.8 (8.4-10.2) mg/dL Magnesium 1.9 (1.6-2.3) mg/dL Total Bilirubin 0.40 (0.2-1.3) mg/dL AST 26 (17-59) U/L ALT 20 (0-50) U/L Alkaline Phosphatase 142 H (38-126) U/L Troponin I < 0.012 (0.000-0.034) ng/mL NT-Pro-B Natriuret Pep 265 (0-900) pg/mL Serum Total Protein 6.7 (6.3-8.2) g/dL Albumin 3.5 (3.5-5.0) g/dL Slides for Path Review 03/10/21 Range/Units 06:40 WBC 6.7 (4.0-10.5) K/mm3 RBC 5.10 (4.1-5.6) M/mm3 Hgb 15.2 (12.5-18.0) gm/dl Hct 47.3 (42-50) % MCV 92.7 (78-100) fl MCH 29.8 (26-32) pg MCHC 32.1 (32-36) g/dl RDW 16.9 H (11.5-14.0) % Plt Count 70 L (150-450) K/mm3 MPV 11.0 (7.5-11.0) fl Gran % 65.3 (36.0-66.0) % Eos # (Auto) 0.16 (0-0.5) Absolute Lymphs (auto) 1.31 (1.0-4.6) Absolute Monos (auto) 0.82 (0.0-1.3) Lymphocytes % 19.6 L (24.0-44.0) % Monocytes % 12.3 H (0.0-12.0) % Eosinophils % 2.4 (0.00-5.0) % Basophils % 0.4 (0.0-0.4) % Absolute Granulocytes 4.37 (1.4-6.9) Basophils # 0.03 (0-0.4) pO2/FiO2 Ratio % VBG pH (7.32-7.42) VBG pCO2 at Pat Temp (42-55) mm/Hg VBG pO2 at Pat Temp (25-40) mm/Hg VBG HCO3 (22-28) meq/L VBG O2 Sat (Tom) (95-100) VBG Base Excess (-2.0-2.0) VBG Hemoglobin VBG Carboxyhemoglobin (0.0-6.9) % T HGB POC Potassium (3.5-5.1) Sodium (137-145) mmol/L Potassium (3.5-5.1) mmol/L Chloride (98-107) mmol/L Carbon Dioxide (22-30) mmol/L Anion Gap (5-15) MEQ/L BUN (9-20) mg/dL Creatinine (0.66-1.25) mg/dL Estimated GFR ML/MIN Glucose (74-106) mg/dL Lactic Acid (0.4-2.0) Calcium (8.4-10.2) mg/dL Magnesium (1.6-2.3) mg/dL Total Bilirubin (0.2-1.3) mg/dL AST (17-59) U/L ALT (0-50) U/L Alkaline Phosphatase (38-126) U/L Troponin I (0.000-0.034) ng/mL NT-Pro-B Natriuret Pep (0-900) pg/mL Serum Total Protein (6.3-8.2) g/dL Albumin (3.5-5.0) g/dL Slides for Path Review YES - Progress Progress Note: 03/10/21 06:54 Is given Solu-Medrol/neb treatment. EKG showed atrial fibrillation without any acute ischemic changes. Rest of the work-up is pending, care is transferred to Dr. He at shift change - Departure Clinical Impression: SOB (shortness of breath), Thrombocytopenia, Lactic acidosis, Hypokalemia, H ypoxia Condition: Stable Referrals: KETAN ECHEVARRIA [Primary Care Provider] -
[2021-03-10 06:47] LABS: Absolute Neutrophil Ct (ANC) 4.37 (1.4-6.9); BASOPHIL % 0.4 % (0.0-0.4); Basophil (Absolute #) 0.03 (0-0.4); Eosinophil % 2.4 % (0.00-5.0); Eosinophil (Absolute #) 0.16 (0-0.5); Hematocrit 47.3 % (42-50); Hemoglobin 15.2 gm/dl (12.5-18.0); Lymphocyte (Absolute #) 1.31 (1.0-4.6); Lymphocytes % 19.6 % (24.0-44.0); Mean Cell Volume 92.7 fl (78-100); Mean Corpuscular Hemoglobin 29.8 pg (26-32); Mean Corpuscular Hgb Concent. 32.1 g/dl (32-36); Monocyte (Absolute #) 0.82 (0.0-1.3); Monocytes % 12.3 % (0.0-12.0); Neutrophil % 65.3 % (36.0-66.0); Platelet Count 70 K/mm3 (150-450); Red Cell Distribution Width 16.9 % (11.5-14.0); White Blood Count 6.7 K/mm3 (4.0-10.5)
[2021-03-10 07:08] LABS: ALBUMIN 3.5 g/dL (3.5-5.0); ALKALINE PHOSPHATASE 142 U/L (38-126); ANION GAP 15.1 MEQ/L (5-15); BLOOD UREA NITROGEN 16 mg/dL (9-20); CHLORIDE 95 mmol/L (98-107); Calcium 8.8 mg/dL (8.4-10.2); Carbon Dioxide 38 mmol/L (22-30); Creatinine 1 0.65 mg/dL (0.66-1.25); EST GLOMERULAR FILTRATION RATE > 60.0 ML/MIN; Glucose 144 mg/dL (74-106); MAGNESIUM 1.9 mg/dL (1.6-2.3); NT PRO BNP 265 pg/mL (0-900); SGOT/AST 26 U/L (17-59); SGPT/ALT 20 U/L (0-50); SODIUM 145 mmol/L (137-145); Total Protein 6.7 g/dL (6.3-8.2)
[2021-03-10 07:12] LABS: Slide Review 1 YES
[2021-03-10] MEDS ORDERED: MORPHINE SULFATE 4 MG INJ IV ONE (07:12)
[2021-03-10 07:14] LABS: Potassium 2.9 mmol/L (3.5-5.1)
[2021-03-10] MEDS ORDERED: Klor Con 10 MEQ PO ONE ×2 (07:14→07:26)
[2021-03-10] MEDS ORDERED: MORPHINE SULFATE 4 MG INJ ONE (07:27)
[2021-03-10] MEDS ORDERED: Sodium Chloride 0.9% 1000 ML 1,000 ML IV STA (07:30)
[2021-03-10] MEDS ORDERED: Sodium Chloride 0.9% 1000 ML 1,000 ML ONE (07:36)
[2021-03-10] MEDS ORDERED: Lasix 20 MG/2 ML IV STA (09:21)
[2021-03-10 09:47] LABS: VBG BASE EXCESS 10.1 (-2.0-2.0); VBG CARBOXYHEMOGLOBIN 7.7 % T HGB (0.0-6.9); VBG HCO3- 35.6 meq/L (22-28); VBG O2 SATURATION 93.3 (95-100); VBG POTASSIUM 3.6 (3.5-5.1); VBG pH 7.46 (7.32-7.42)
[2021-03-10] MEDS ORDERED: Lasix 40 MG/4 ML ONE (09:56)
--- NOTE | 2021-03-10 09:59 | XRAY ---
Exam: AP upright portable chest film from 03/10/2021 Comparison: Two-view chest from 03/07/2021. Indication: Shortness of breath. Findings: Lung volumes appear toward the lower limits of normal. The heart size is within normal limits for this AP portable technique. Mild vascular congestive changes seen within the lower lung sims on 03/07/2021 appear slightly improved. I see no air space infiltrates, pneumothorax, or pleural fluid. No gross skeletal abnormality is seen. Impression: 1. Slight improvement of bilateral lower lung field mild vascular congestive changes seen on 03/07/2021. I detect no new air space infiltrates or pleural fluid. Heart size remains within normal limits.
[2021-03-10 10:41] VITALS: BP 124/84; PULSE 88
[2021-03-12 17:40] VITALS: O2SAT 95
== END 2021-03-10 10:41 | disposition short-term general hospital (02) ==
LOC: ED 06:02
DX: I50.9 Heart failure, unspecified (principal); D69.6 Thrombocytopenia, unspecified; E87.2 Acidosis; E87.6 Hypokalemia; R09.02 Hypoxemia; I48.91 Unspecified atrial fibrillation; Z79.01 Long term (current) use of anticoagulants; Z79.899 Other long term (current) drug therapy; J44.9 Chronic obstructive pulmonary disease, unspecified; F17.200 Nicotine dependence, unspecified, uncomplicated
CPT/HCPCS: 36000; 36415; 71045; 80053; 82805; 83605; 83735; 83880; 84484; 85025; 87040; 93005; 94640; 96374; 96375; 96376; 99285; J1940; J2270; J2930; A9270-GY

== ENCOUNTER 2022-03-17 10:33 | Emergency (ER) | payer MEDICARE ==
--- NOTE | 2022-03-17 11:07 | ERPHSYRPT ---
- History of Present Illness Time Seen by Provider: 03/17/22 11:06 Source: patient Exam Limitations: no limitations Patient Subjective Stated Complaint: sob and cough since last night Triage Nursing Assessment: . Physician History: This is a morbidly obese 51-year-old white male patient of Dr. Stern who stated that he had cough, shortness of breath and fever of 102.0 F that began last night. Patient denies chest pain. Patient has right upper quadrant abdominal pain. He has had no nausea vomiting or diarrhea. He has no known exposures to individuals with similar symptoms or with viral illness. Patient is a daily smoker of cigarettes. He has had a COVID vaccination in the past. He does have a history of atrial fibrillation. Patient's room air oxygen saturation levels 96%. Patient has a history of coronary artery disease, hypertension, CHF, asthma, bronchitis, cirrhosis and bipolar disorder. Timing/Duration: yesterday Activities at Onset: none Severity of Dyspnea-Max: mild Severity of Dyspnea-Current: mild Possible Cause: occasional episodes Associated Symptoms: cough (Nonproductive), fever Allergies/Adverse Reactions: nitrofurantoin [From Macrobid] Allergy (Verified 03/05/21 07:02) Rash Home Medications: Propranolol HCl 40 mg PO DAILY 11/04/18 [History] Alprazolam [Xanax] 0.5 mg PO BID PRN 03/05/21 [History] Gabapentin [Neurontin ] 600 mg PO TID PRN 03/05/21 [History] Levothyroxine Sodium 175 mcg PO DAILY 03/05/21 [History] OLANZapine [Zyprexa] 50 mg PO HS 03/05/21 [History] Potassium Chloride [Klor-Con 8] 8 meq PO BID 03/05/21 [History] Hx Tetanus, Diphtheria Vaccination/Date Given: Yes Hx Influenza Vaccination/Date Given: Yes Hx Pneumococcal Vaccination/Date Given: No Travel Risk - International Travel Have you traveled outside of the country in past 3 weeks: No - Coronavirus Screening Are you exhibiting any of the following symptoms?: Yes Symptoms: Cough: New Onset, Shortness of Breath - Vaccine Status Have you recieved a Covid-19 vaccination: Yes 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: [employer] - Vaccination Dates Date of 2cond Vaccination (if applicable): 2020 - Review of Systems Constitutional: Fever (At home but not here) Eyes: No Symptoms Ears, Nose, & Throat: No Symptoms Respiratory: Cough, Dyspnea on Exertion ([place]) Cardiac: No Symptoms Abdominal/Gastrointestinal: Abdominal Pain (Right upper quadrant) Genitourinary Symptoms: No Symptoms Musculoskeletal: No Symptoms Skin: No Symptoms Neurological: No Symptoms Psychological: No Symptoms Endocrine: No Symptoms Hematologic/Lymphatic: No Symptoms Immunological/Allergic: No Symptoms All Other Systems: Reviewed and Negative - Past Medical History Pertinent Past Medical History: Yes Neurological History: No Pertinent History ENT History: No Pertinent History Cardiac History: Arrhythmia, Coronary Artery Disease, Hypertension Respiratory History: Asthma, Bronchitis, CHF, Pneumonia Endocrine Medical History: Hypothyroidism Musculoskeletal History: Osteoarthritis GI Medical History: Hepatitis, Cirrhosis History: No Pertinent History Psycho-Social History: Anxiety, Bipolar, Depression Male Reproductive Disorders: No Pertinent History Other Medical History: frequent cellulitis in lower extremities - Past Surgical History Past Surgical History: Yes Neuro Surgical History: No Pertinent History Cardiac: No Pertinent History, Cardiac Catheterization Respiratory: No Pertinent History Gastrointestinal: Cholecystectomy Genitourinary: No Pertinent History Musculoskeletal: Orthopedic Surgery Male Surgical History: No Pertinent History Other Surgical History: rt knee,. had cath 5 or 6 years ago. - Social History Smoking Status: Current every day smoker How long have you smoked: 20 yrs Exposure to second hand smoke: Yes Drug Use: none Patient Lives Alone: No - Nursing Vital Signs Nursing Vital Signs: Initial Vital Signs Temperature 98.5 F 03/17/22 10:35 Pulse Rate 104 H 03/17/22 10:35 Respiratory Rate 22 03/17/22 10:35 Blood Pressure 160/117 03/17/22 10:35 O2 Sat by Pulse Oximetry 94 L 03/17/22 10:35 Pain Scale Pain Intensity 4 - Physical Exam General Appearance: no apparent distress, alert, anxiety, obese Eye Exam: PERRL/EOMI, eyes nml inspection Ears, Nose, Throat Exam: hearing grossly normal Neck Exam: normal inspection, non-tender, supple, full range of motion Respiratory Exam: normal breath sounds, lungs clear, airway intact, No chest tenderness, No respiratory distress Cardiovascular/Chest Exam: irregular Abdominal/Gastrointestinal Exam: soft, normal bowel sounds, tenderness (Mild to palpation right upper quadrant), No guarding, No rebound Rectal Exam: not done Extremity Exam: non-tender, normal range of motion, normal inspection Neurologic Exam: alert, oriented x 3, cooperative, 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, normal mood/affect, nml cerebellar function, nml station & gait, sensation nml Skin Exam: normal color, warm, dry Lymphatic Exam: No adenopathy SpO2 Interpretation: borderline oxygenation SpO2: 94 O2 Delivery: Room Air - Course Nursing assessment & vital signs reviewed: Yes EKG Interpreted by Me: RATE (103), A-fib, Other (No acute ischemic changes on today's EKG.) Ordered Tests: Active Orders 24 hr Category Date Time Status Produce Weigher STAT Care 03/17/22 11:18 Active EKG-ER Only STAT Care 03/17/22 11:18 Active IV Insertion STAT Care 03/17/22 11:18 Active Pulse Oximetry (ED) STAT Care 03/17/22 11:18 Active CHEST 1 VIEW (PORTABLE) Stat Exams 03/17/22 11:18 Completed CHEST WITH CONTRAST [CT] Stat Exams 03/17/22 13:06 Completed BLOOD CULTURE Stat Lab 03/17/22 12:41 Received CBC W DIFF Stat Lab 03/17/22 12:00 Completed CMP Stat Lab 03/17/22 12:00 Completed D-DIMER QUANTITATIVE Stat Lab 03/17/22 12:00 Completed Lactic Acid Stat Lab 03/17/22 11:18 Completed [place] Screen Stat Lab 03/17/22 12:00 Completed NT PRO BNP Stat Lab 03/17/22 12:00 Completed TROPONIN Q3H Lab 03/17/22 12:00 Completed TROPONIN Q3H Lab 03/17/22 14:30 Ordered TROPONIN Q3H Lab 03/17/22 17:30 Ordered TROPONIN Q3H Lab 03/17/22 20:30 Ordered TROPONIN Q3H Lab 03/17/22 23:30 Ordered Medication Summary Discontinued Medications Generic Name Dose Route Start Last Admin Trade Name Freq PRN Reason Stop Dose Admin Hydrocodone Bitart/Acetaminophen 10 ml 03/17/22 11:58 03/17/22 12:08 Hydrocodone/Acetaminophen 5 Ml Udcup PO 03/17/22 11:59 10 ml STAT STA Administration Hydrocodone Bitart/Acetaminophen Confirm 03/17/22 12:07 Hydrocodone/Acetaminophen 5 Ml Udcup Administered 03/17/22 12:08 Dose 10 ml .ROUTE .STK-MED ONE Sodium Chloride 500 mls @ 500 mls/hr 03/17/22 13:06 03/17/22 13:09 Sodium Chloride 0.9% 500 Ml IV 03/17/22 14:05 500 mls/hr .Q1H ONE Administration Sodium Chloride Confirm 03/17/22 13:08 Sodium Chloride 0.9% 500 Ml Administered 03/17/22 13:09 Dose 500 mls @ ud IV .STK-MED ONE Lab/Rad Data: Laboratory Result Diagrams 03/17/22 12:00 03/17/22 12:00 Laboratory Results 03/17/22 03/17/22 03/17/22 Range/Units 12:00 12:00 12:00 WBC (4.0-10.5) x10^3/uL RBC (4.1-5.6) x10^6/uL Hgb (12.5-18.0) g/dL Hct (42-50) % MCV (78-100) fL MCH (26-32) pg MCHC (32-36) g/dL RDW (11.5-14.0) % Plt Count (150-450) x10^3/uL MPV (7.5-11.0) fL Gran % (36.0-66.0) % Immature Gran % (Auto) (0.00-0.4) % Nucleat RBC Rel Count (0.00-0.1) % Eos # (Auto) (0-0.5) x10^3/uL Immature Gran # (Auto) (0.00-0.03) x10^3u/L Absolute Lymphs (auto) (1.0-4.6) x10^3/uL Absolute Monos (auto) (0.0-1.3) x10^3/uL Absolute Nucleated RBC (0.00-0.01) x10^3u/L Lymphocytes % (24.0-44.0) % Monocytes % (0.0-12.0) % Eosinophils % (0.00-5.0) % Basophils % (0.0-0.4) % Absolute Granulocytes (1.4-6.9) x10^3/uL Basophils # (0-0.4) x10^3/uL D-Dimer (0.0-0.50) mg/L Sodium (137-145) mmol/L Potassium (3.5-5.1) mmol/L Chloride (98-107) mmol/L Carbon Dioxide (22-30) mmol/L Anion Gap (5-15) MEQ/L BUN (9-20) mg/dL Creatinine (0.66-1.25) mg/dL Estimated GFR ML/MIN Glucose (74-106) mg/dL Lactic Acid (0.4-2.0) Calcium (8.4-10.2) mg/dL Total Bilirubin (0.2-1.3) mg/dL AST (17-59) U/L ALT (0-50) U/L Alkaline Phosphatase (38-126) U/L Troponin I (0.000-0.034) ng/mL NT-Pro-B Natriuret Pep (0-900) pg/mL Serum Total Protein (6.3-8.2) g/dL Albumin (3.5-5.0) g/dL Monoscreen NEGATIVE (Negative) Influenza Type A Ag NEGATIVE (NEGATIVE) Influenza Type B Ag NEGATIVE (NEGATIVE) RSV (PCR) NEGATIVE (Negative) SARS-CoV-2 (PCR) NEGATIVE (NEGATIVE) Group A Strep Antibody NOT DETECTED (NEGATIVE) 03/17/22 03/17/22 03/17/22 Range/Units 12:00 12:00 12:00 WBC (4.0-10.5) x10^3/uL RBC (4.1-5.6) x10^6/uL Hgb (12.5-18.0) g/dL Hct (42-50) % MCV (78-100) fL MCH (26-32) pg MCHC (32-36) g/dL RDW (11.5-14.0) % Plt Count (150-450) x10^3/uL MPV (7.5-11.0) fL Gran % (36.0-66.0) % Immature Gran % (Auto) (0.00-0.4) % Nucleat RBC Rel Count (0.00-0.1) % Eos # (Auto) (0-0.5) x10^3/uL Immature Gran # (Auto) (0.00-0.03) x10^3u/L Absolute Lymphs (auto) (1.0-4.6) x10^3/uL Absolute Monos (auto) (0.0-1.3) x10^3/uL Absolute Nucleated RBC (0.00-0.01) x10^3u/L Lymphocytes % (24.0-44.0) % Monocytes % (0.0-12.0) % Eosinophils % (0.00-5.0) % Basophils % (0.0-0.4) % Absolute Granulocytes (1.4-6.9) x10^3/uL Basophils # (0-0.4) x10^3/uL D-Dimer 0.95 H* (0.0-0.50) mg/L Sodium 137 (137-145) mmol/L Potassium 3.8 (3.5-5.1) mmol/L Chloride 106 (98-107) mmol/L Carbon Dioxide 27 (22-30) mmol/L Anion Gap 8.8 (5-15) MEQ/L BUN 8 L (9-20) mg/dL Creatinine 0.63 L (0.66-1.25) mg/dL Estimated GFR > 60.0 ML/MIN Glucose 109 H (74-106) mg/dL Lactic Acid (0.4-2.0) Calcium 9.0 (8.4-10.2) mg/dL Total Bilirubin 1.20 (0.2-1.3) mg/dL AST 29 (17-59) U/L ALT 17 (0-50) U/L Alkaline Phosphatase 120 (38-126) U/L Troponin I < 0.012 (0.000-0.034) ng/mL NT-Pro-B Natriuret Pep 397 (0-900) pg/mL Serum Total Protein 7.0 (6.3-8.2) g/dL Albumin 3.3 L (3.5-5.0) g/dL Monoscreen (Negative) Influenza Type A Ag (NEGATIVE) Influenza Type B Ag (NEGATIVE) RSV (PCR) (Negative) SARS-CoV-2 (PCR) (NEGATIVE) Group A Strep Antibody (NEGATIVE) 03/17/22 03/17/22 Range/Units 12:00 11:18 WBC 5.7 (4.0-10.5) x10^3/uL RBC 5.44 (4.1-5.6) x10^6/uL Hgb 17.2 (12.5-18.0) g/dL Hct 51.3 H (42-50) % MCV 94.3 (78-100) fL MCH 31.6 (26-32) pg MCHC 33.5 (32-36) g/dL RDW 14.5 H (11.5-14.0) % Plt Count 82 L (150-450) x10^3/uL MPV 11.1 H (7.5-11.0) fL Gran % 58.9 (36.0-66.0) % Immature Gran % (Auto) 0.4 (0.00-0.4) % Nucleat RBC Rel Count 0.0 (0.00-0.1) % Eos # (Auto) 0.19 (0-0.5) x10^3/uL Immature Gran # (Auto) 0.02 (0.00-0.03) x10^3u/L Absolute Lymphs (auto) 1.52 (1.0-4.6) x10^3/uL Absolute Monos (auto) 0.51 (0.0-1.3) x10^3/uL Absolute Nucleated RBC 0.00 (0.00-0.01) x10^3u/L Lymphocytes % 26.9 (24.0-44.0) % Monocytes % 9.0 (0.0-12.0) % Eosinophils % 3.4 (0.00-5.0) % Basophils % 1.4 (0.0-0.4) % Absolute Granulocytes 3.33 (1.4-6.9) x10^3/uL Basophils # 0.08 (0-0.4) x10^3/uL D-Dimer (0.0-0.50) mg/L Sodium (137-145) mmol/L Potassium (3.5-5.1) mmol/L Chloride (98-107) mmol/L Carbon Dioxide (22-30) mmol/L Anion Gap (5-15) MEQ/L BUN (9-20) mg/dL Creatinine (0.66-1.25) mg/dL Estimated GFR ML/MIN Glucose (74-106) mg/dL Lactic Acid 1.3 (0.4-2.0) Calcium (8.4-10.2) mg/dL Total Bilirubin (0.2-1.3) mg/dL AST (17-59) U/L ALT (0-50) U/L Alkaline Phosphatase (38-126) U/L Troponin I (0.000-0.034) ng/mL NT-Pro-B Natriuret Pep (0-900) pg/mL Serum Total Protein (6.3-8.2) g/dL Albumin (3.5-5.0) g/dL Monoscreen (Negative) Influenza Type A Ag (NEGATIVE) Influenza Type B Ag (NEGATIVE) RSV (PCR) (Negative) SARS-CoV-2 (PCR) (NEGATIVE) Group A Strep Antibody (NEGATIVE) - Progress Progress: improved, re-examined Air Movement: good Progress Note: 03/17/22 12:16 Chest x-ray shows no acute cardiopulmonary process. 03/17/22 14:11 CTA of the chest shows no pulmonary embolus. There is recurrent patchy groundglass appearance in bilateral upper lobes. The radiologist mentions that there are pills within the stomach. He mentions overdose. However, the patient took his oral medication just prior to arrival to the emergency department. This was discussed with the patient and he denies any attempt of overdose. 03/17/22 14:13 Medical decision making: The patient's COVID test is negative. However, there is the patient's symptoms of cough and mild shortness of breath. He does have patchy groundglass appearance in bilateral upper lobes which is recurrent. I will treat this patient as an outpatient with a Z-You and prednisone. Patient can follow-up with his primary care physician for further evaluation and management. Blood Culture(s) Obtained: Yes Counseled pt/family regarding: lab results, diagnosis, need for follow-up, rad results - Departure Departure Disposition: Home Clinical Impression: Pulmonary infiltrate on chest x-ray Condition: Stable Critical Care Time: No Referrals: KETAN STERN [Primary Care Provider] - Follow up/PCP as directed Additional Instructions: Take your medications as prescribed. Call your primary care physician's office today to make arrangements for follow-up appointment for further evaluation and management. Prescriptions: Prednisone 10 mg [Deltasone 10 mg] 10 mg PO TID #12 tablet Azithromycin 250 mg [Zithromax 250 MG TABLET] 250 mg PO ZPACK #6 tablet
--- NOTE | 2022-03-17 11:44 | XRAY ---
Indication: Short of breath. Asthma. Comparison: March 10, 2021 Portable apical lordotic chest clear. Heart and mediastinal structures within normal limits. Bony thorax intact again with mild osteopenia. Impression: Nonacute chest.
[2022-03-17] MEDS ORDERED: HYDROCODONE-ACETAMIN 2.5-108/5 ML SOLUTION PO STA (11:58)
[2022-03-17] MEDS ORDERED: HYDROCODONE-ACETAMIN 2.5-108/5 ML SOLUTION ONE (12:07)
[2022-03-17 12:18] LABS: Absolute Neutrophil Ct (ANC) 3.33 x10^3/uL (1.4-6.9); Basophil (Absolute #) 0.08 x10^3/uL (0-0.4); Eosinophil % 3.4 % (0.00-5.0); Eosinophil (Absolute #) 0.19 x10^3/uL (0-0.5); Hematocrit 51.3 % (42-50); Hemoglobin 17.2 g/dL (12.5-18.0); Lymphocyte (Absolute #) 1.52 x10^3/uL (1.0-4.6); Lymphocytes % 26.9 % (24.0-44.0); Mean Cell Volume 94.3 fL (78-100); Mean Corpuscular Hemoglobin 31.6 pg (26-32); Mean Corpuscular Hgb Concent. 33.5 g/dL (32-36); Mean Platelet Volume 11.1 fL (7.5-11.0); Monocyte (Absolute #) 0.51 x10^3/uL (0.0-1.3); Neutrophil % 58.9 % (36.0-66.0); Platelet Count 82 x10^3/uL (150-450); Red Blood Count 5.44 x10^6/uL (4.1-5.6); Red Cell Distribution Width 14.5 % (11.5-14.0); White Blood Count 5.7 x10^3/uL (4.0-10.5)
[2022-03-17 12:43] LABS: ALBUMIN 3.3 g/dL (3.5-5.0); ALKALINE PHOSPHATASE 120 U/L (38-126); ANION GAP 8.8 MEQ/L (5-15); BLOOD UREA NITROGEN 8 mg/dL (9-20); CHLORIDE 106 mmol/L (98-107); Carbon Dioxide 27 mmol/L (22-30); Creatinine 1 0.63 mg/dL (0.66-1.25); EST GLOMERULAR FILTRATION RATE > 60.0 ML/MIN; Glucose 109 mg/dL (74-106); NT PRO BNP 397 pg/mL (0-900); Potassium 3.8 mmol/L (3.5-5.1); SGOT/AST 29 U/L (17-59); SGPT/ALT 17 U/L (0-50); SODIUM 137 mmol/L (137-145)
[2022-03-17 12:58] LABS: INFLUENZA A NEGATIVE (NEGATIVE); INFLUENZA B NEGATIVE (NEGATIVE); RESPIRATORY SYNCTIAL VIRUS NEGATIVE (Negative); SARS-CoV-2 Xpert Express NEGATIVE (NEGATIVE)
[2022-03-17] MEDS ORDERED: Sodium Chloride 0.9% 500 ML 500 ML IV ONE ×2 (13:06→13:08)
--- NOTE | 2022-03-17 13:57 | XRAY ---
Indication: Short of breath. Elevated d-dimer. Multiple contiguous axial images obtained through the chest using 100 cc Isovue 370 contrast and PE protocol. Comparison: March 06, 2021. Good opacification of the pulmonary arteries to include the lobar and segmental branches. No pulmonary embolus. Heart not enlarged. Aorta normal in course and caliber. Stable tiny mediastinal and left hilar calcified nodes. No pathologic mediastinal/hilar lymphadenopathy. Stable distal paraesophageal varices. Lungs again demonstrate minimal patchy groundglass airspace disease in both upper lobes anteriorly without consolidation/effusion. Bony thorax intact again with degenerative changes throughout the thoracolumbar spine, small multilevel thoracic Schmorl nodes, remote T7 superior endplate fracture, and remote bilateral anterior rib fractures. Again bilateral gynecomastia Limited upper abdomen again demonstrates cirrhotic liver, splenorenal varices, and 16.5 cm splenomegaly. Stomach now demonstrates numerous medications/pills. Impression: 1. Continued negative pulmonary embolus. 2. Recurrent minimal bilaterally patchy groundglass airspace disease in both upper lobes. 3. Numerous medications/pills in stomach. Rule out overdose. 4. Chronic findings including cirrhosis, splenomegaly, distal paraesophageal varices, chronic bony findings, and bilateral gynecomastia.
[2022-03-17 14:30] VITALS: BP 160/112; PULSE 88; O2SAT 96
[2022-03-17 14:50] LABS: Slide Review 1 YES
== END 2022-03-17 14:37 | disposition home or self-care (01) ==
LOC: ED 10:33
DX: R91.8 Other nonspecific abnormal finding of lung field (principal); R05.9 Cough, unspecified; R06.02 Shortness of breath; R50.9 Fever, unspecified; R10.31 Right lower quadrant pain; I11.0 Hypertensive heart disease with heart failure; I50.9 Heart failure, unspecified; Z72.0 Tobacco use; Z79.899 Other long term (current) drug therapy; Z79.52 Long term (current) use of systemic steroids
CPT/HCPCS: 0241U; 36000; 36415; 71045; 71260; 80053; 83605; 83880; 84484; 85025; 85379; 86308; 87040; 87651; 93005; 93041; 94760; 99284; A9270-GY

== ENCOUNTER 2022-03-31 10:16 | Day surgery (SDC) | payer MEDICARE | END 2022-03-31 11:00 | disposition home or self-care (01) | LOC: SDC 10:16 | PROVIDERS: ATTEND Podiatrist Foot & Ankle Surgery | DX: Z53.8 Procedure and treatment not carried out for other reasons (principal) ==

== ENCOUNTER 2022-05-01 12:08 | Inpatient (IN) | payer MEDICARE ==
[2022-05-01] MEDS ORDERED: solu-MEDROL 125 MG, Sterile H2O 10 ml 2 ML IV ONE ×2 (12:34)
[2022-05-01] MEDS ORDERED: DUONEB 0.5-3 MG/3 ml Neb IH ONE ×2 (12:34→12:39)
[2022-05-01] MEDS ORDERED: solu-MEDROL ONE (12:37)
[2022-05-01] MEDS ORDERED: Sterile H2O 10 ml IJ ONE (12:37)
[2022-05-01 12:59] LABS: Absolute Neutrophil Ct (ANC) 3.12 x10^3/uL (1.4-6.9); Basophil (Absolute #) 0.08 x10^3/uL (0-0.4); Eosinophil % 2.3 % (0.00-5.0); Eosinophil (Absolute #) 0.13 x10^3/uL (0-0.5); Hematocrit 51.3 % (42-50); Hemoglobin 16.6 g/dL (12.5-18.0); Lymphocyte (Absolute #) 1.62 x10^3/uL (1.0-4.6); Lymphocytes % 28.8 % (24.0-44.0); Mean Cell Volume 95.9 fL (78-100); Mean Corpuscular Hgb Concent. 32.4 g/dL (32-36); Mean Platelet Volume 10.8 fL (7.5-11.0); Monocyte (Absolute #) 0.63 x10^3/uL (0.0-1.3); Monocytes % 11.2 % (0.0-12.0); Neutrophil % 55.6 % (36.0-66.0); Platelet Count 79 x10^3/uL (150-450); Red Blood Count 5.35 x10^6/uL (4.1-5.6); Red Cell Distribution Width 15.9 % (11.5-14.0); White Blood Count 5.6 x10^3/uL (4.0-10.5)
[2022-05-01 13:20] LABS: ALBUMIN 3.5 g/dL (3.5-5.0); ALKALINE PHOSPHATASE 106 U/L (38-126); BLOOD UREA NITROGEN 9 mg/dL (9-20); CHLORIDE 106 mmol/L (98-107); Calcium 8.3 mg/dL (8.4-10.2); Carbon Dioxide 30 mmol/L (22-30); Creatinine 1 0.81 mg/dL (0.66-1.25); EST GLOMERULAR FILTRATION RATE > 60.0 ML/MIN; Glucose 122 mg/dL (74-106); MAGNESIUM 1.7 mg/dL (1.6-2.3); NT PRO BNP 1040 pg/mL (0-900); Potassium 4.2 mmol/L (3.5-5.1); SGOT/AST 31 U/L (17-59); SGPT/ALT 15 U/L (0-50); SODIUM 140 mmol/L (137-145); Total Protein 7.1 g/dL (6.3-8.2)
--- NOTE | 2022-05-01 13:26 | XRAY ---
Indication: Short of breath. Comparison: March 17, 2022 Portable chest demonstrates new hazy right infrahilar interstitial alveolar opacity without consolidation/large effusion. Remaining heart, left lung, and bony thorax unremarkable.
--- NOTE | 2022-05-01 13:29 | ERPHSYRPT ---
- History of Present Illness Time Seen by Provider: 05/01/22 12:24 Source: patient Exam Limitations: no limitations Patient Subjective Stated Complaint: Pt was SOB and so he went to [facility] and then they sent him to the ER, pt was 89% on room air and 89-90% on 2 L NC, Pt had began feeling SOB since Wednesday Triage Nursing Assessment: Pt brought to the ER by his dad, hypoxic, rates "liver" pain as 04/08, states that he is in stage 4 liver failure, right side lungs coarse and crackles, clear thick sputum, tight chato lower ext without pitting, afib, can hear his lungs from across the room whistling Physician History: 51 years old morbidly obese male with history of atrial fibrillation on Eliquis, COPD, tobacco abuse presented in the ER with chief complaint of worsening shortness of breath and cough for the last 5 days. Patient reports cough productive of clear to yellow sputum moderate in amount with increasing shortness of breath especially with activity and partial relief with resting. Patient was seen earlier today at [facility], oxygen saturation was dropping and upper 80s, sent in here for further evaluation. Patient is currently on 4 L oxygen with sats around 93%. Has bilateral rhonchi wheezing. No fever or chills reported. Timing/Duration: day(s) (5), gradual onset, worse Severity of Dyspnea-Max: moderate Severity of Dyspnea-Current: moderate Possible Cause: unknown cause Modifying Factors: Improves With: oxygen. Worsens With: coughing, exertion Associated Symptoms: cough, chest pain/discomfort, edema, wheezing, productive cough, tightness, No fever Allergies/Adverse Reactions: nitrofurantoin [From Macrobid] Allergy (Verified 05/01/22 15:55) Rash adhesive tape Adverse Reaction (Verified 05/01/22 15:55) Home Medications: Propranolol HCl 40 mg PO DAILY 11/04/18 [History] Alprazolam [Xanax] 0.5 mg PO TID 03/05/21 [History] Levothyroxine Sodium 175 mcg PO DAILY 03/05/21 [History] OLANZapine [Zyprexa] 20 mg PO HS 03/05/21 [History] Potassium Chloride [Klor-Con 8] 8 meq PO DAILY PRN PRN 03/05/21 [History] Bumetanide 1 mg [Bumex 1 mg] 2 mg PO BID 03/24/22 [History] Cholestyramine (with Sugar) [Questran Powder] 1 scoop PO DAILY PRN PRN 03/24/22 [History] Promethazine HCl 25 mg [Phenergan 25 mg] 25 mg PO DAILY 03/24/22 [History] Gabapentin 600 mg PO TID 05/01/22 [History] Hydroxyzine HCl 25 mg [Atarax 25 mg] 25 mg PO TID PRN 05/01/22 [History] Metoprolol Tartrate 50 mg [Lopressor 50 MG] 50 mg PO BID 05/01/22 [History] Tizanidine HCl 4 mg [Zanaflex 4 MG] 4 mg PO Q8H PRN 05/01/22 [History] Hx Tetanus, Diphtheria Vaccination/Date Given: Yes Hx Influenza Vaccination/Date Given: Yes Hx Pneumococcal Vaccination/Date Given: No Travel Risk - International Travel Have you traveled outside of the country in past 3 weeks: No - Coronavirus Screening Are you exhibiting any of the following symptoms?: Yes Symptoms: Cough: New Onset, Shortness of Breath Close contact with a COVID-19 positive Pt in past 14-21 Days: No - Vaccine Status Have you recieved a Covid-19 vaccination: Yes 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 - Vaccination Dates Date of 2cond Vaccination (if applicable): 2020 - Review of Systems Constitutional: No Symptoms Eyes: No Symptoms Ears, Nose, & Throat: No Symptoms Respiratory: Cough, Dyspnea, Dyspnea on Exertion ([place]), Wheezing Cardiac: Edema Abdominal/Gastrointestinal: No Symptoms Genitourinary Symptoms: No Symptoms Musculoskeletal: No Symptoms Skin: No Symptoms Neurological: No Symptoms Psychological: No Symptoms Endocrine: No Symptoms Hematologic/Lymphatic: No Symptoms Immunological/Allergic: No Symptoms - Past Medical History Pertinent Past Medical History: Yes Neurological History: No Pertinent History ENT History: No Pertinent History Cardiac History: Arrhythmia, Coronary Artery Disease, Hypertension Respiratory History: Asthma, Bronchitis, CHF, COPD, Pneumonia Endocrine Medical History: Hypothyroidism Musculoskeletal History: Osteoarthritis GI Medical History: Hepatitis, Cirrhosis History: No Pertinent History Psycho-Social History: Anxiety, Bipolar, Depression Male Reproductive Disorders: No Pertinent History Other Medical History: frequent cellulitis in lower extremities - Past Surgical History Past Surgical History: Yes Neuro Surgical History: No Pertinent History Cardiac: No Pertinent History, Cardiac Catheterization Respiratory: No Pertinent History Gastrointestinal: Cholecystectomy Genitourinary: No Pertinent History Musculoskeletal: Orthopedic Surgery Male Surgical History: No Pertinent History Other Surgical History: rt knee,. had cath 5 or 6 years ago. - Social History Smoking Status: Current every day smoker How long have you smoked: 20 yrs Exposure to second hand smoke: Yes Drug Use: none Patient Lives Alone: No - Nursing Vital Signs Nursing Vital Signs: Initial Vital Signs Temperature 97.9 F 05/01/22 12:17 Pulse Rate 94 H 05/01/22 12:17 Respiratory Rate 20 05/01/22 12:17 Blood Pressure 122/85 05/01/22 12:17 O2 Sat by Pulse Oximetry 89 L 05/01/22 12:17 Pain Scale Pain Intensity 8 - Physical Exam General Appearance: no apparent distress, alert Eye Exam: PERRL/EOMI, eyes nml inspection Ears, Nose, Throat Exam: hearing grossly normal, normal ENT inspection Neck Exam: normal inspection, non-tender, full range of motion Respiratory Exam: diminished breath sounds, rhonchi, wheezing Cardiovascular/Chest Exam: normal heart sounds, irregular Abdominal/Gastrointestinal Exam: soft, No tenderness Extremity Exam: non-tender, normal range of motion Neurologic Exam: alert, oriented x 3, cooperative Skin Exam: normal color SpO2 Interpretation: O2 applied SpO2: 94 O2 Delivery: Nasal Cannula (4 L) - Course EKG Interpreted by Me: RATE (83), A-fib, NORMAL AXIS, NORMAL INTERVALS, Non- specific ST Changes Ordered Tests: Active Orders 24 hr Category Date Time Status Bedrest ROUTINE Activity 05/01/22 15:39 Active Up With Assistance ROUTINE Activity 05/01/22 15:39 Active Admit as Inpatient ROUTINE Care 05/01/22 15:39 Active Edging Machine Feeder STAT Care 05/01/22 12:51 Completed Code Status Order ROUTINE Care 05/01/22 15:39 Active EKG-ER Only STAT Care 05/01/22 12:51 Completed Fall Protocol Q1H Care 05/01/22 15:39 Active IV Care Q6H Care 05/01/22 15:39 Active IV Insertion STAT Care 05/01/22 12:51 Completed Oxygen-ED Only Nasal Cannula 4 lpm Care 05/01/22 12:51 Completed Mauro Phelan, Apply ROUTINE Care 05/01/22 15:39 Active Weight,Daily 0600 Care 05/01/22 15:39 Active Heart-Healthy Diet Diet 05/01/22 Dinner Active CHEST 1 VIEW (PORTABLE) Stat Exams 05/01/22 13:14 Completed BLOOD CULTURE Stat Lab 05/01/22 12:55 Received CBC W DIFF AM.LAB Lab 05/02/22 04:00 Ordered CBC W DIFF Stat Lab 05/01/22 12:56 Completed CMP AM.LAB Lab 05/02/22 04:00 Ordered CMP Stat Lab 05/01/22 12:56 Completed CULTURE,URINE Stat Lab 05/01/22 13:52 Received Lactic Acid Stat Lab 05/01/22 12:51 Completed MAGNESIUM Stat Lab 05/01/22 12:56 Completed NT PRO BNP Stat Lab 05/01/22 12:56 Completed PROCALCITONIN Stat Lab 05/01/22 12:56 Completed TROPONIN Q4H Lab 05/01/22 12:56 Completed TROPONIN Q4H Lab 05/01/22 17:50 Completed TROPONIN Q4H Lab 05/01/22 21:45 Received UA W/RFX CULTURE Stat Lab 05/01/22 13:52 Completed Respiratory Therapy Assessment DAILY RT 05/01/22 12:43 Completed Transfer Order Routine Transfer 05/01/22 Completed Medication Summary Generic Name Dose Route Start Last Admin Trade Name Freq PRN Reason Stop Dose Admin Acetaminophen 650 mg 05/01/22 15:39 Acetaminophen 325 Mg Tablet PO 05/31/22 15:38 Q4H PRN PRN PAIN AND/OR FEVER Albuterol Sulfate 4 puff 05/01/22 19:00 05/01/22 19:10 Albuterol Common Canister Inhaler IH 05/31/22 18:59 4 puff QIDRT MENDEL Administration Alprazolam 0.5 mg 05/01/22 22:00 05/01/22 21:43 Alprazolam 0.5 Mg Tablet PO 05/31/22 21:59 0.5 mg TID MENDEL Administration Apixaban 5 mg 05/01/22 22:00 05/01/22 21:43 Apixaban 2.5 Mg Tablet PO 05/31/22 21:59 5 mg BID MENDEL Administration Bumetanide 2 mg 05/01/22 17:00 05/01/22 17:30 Bumetanide 1 Mg Tablet PO 05/31/22 16:59 Not Given BID DIURETIC MENDEL Bumetanide 2 mg 05/01/22 17:36 Bumetanide 1 Mg Tablet PO 05/31/22 17:35 BIDPRN PRN EDEMA Cholestyramine Resin 4 gm 05/01/22 17:04 Cholestyramine Light 4 Gm Packet PO 05/31/22 17:03 DAILY PRN PRN DIARRHEA Methylprednisolone Sodium 0 mg 05/01/22 18:00 05/01/22 17:41 Succinate 60 mg/ Sterile Water IV 05/31/22 17:59 60 mg 2 ml Q6HT MENDEL Administration Fluoxetine HCl 20 mg 05/01/22 10:00 05/01/22 17:30 Fluoxetine Hcl 20 Mg Cap PO 05/31/22 09:59 Not Given DAILY MENDEL Gabapentin 600 mg 05/01/22 22:00 05/01/22 21:43 Gabapentin 300 Mg Capsule PO 05/31/22 21:59 600 mg TID MENDEL Administration Hydroxyzine HCl 25 mg 05/01/22 16:43 Hydroxyzine Hcl 25 Mg Tablet PO 05/31/22 16:42 TIDPRN PRN ITCHING Azithromycin 500 mg in 250 mls @ 250 mls/hr 05/02/22 10:00 Zithromax 500 Mg/ 250 Ml Nacl Premix IV 06/01/22 09:59 Q24H10 MENDEL Ceftriaxone Sodium/Dextrose 2 g in 50 mls @ 100 mls/hr 05/02/22 10:00 Rocephin 2 Gm-D5w 50ml Bag IV 05/05/22 09:59 Q24H10 MENDEL Levothyroxine Sodium 150 mcg 05/02/22 10:00 Levothyroxine Sodium 150 Mcg Tablet PO 06/01/22 09:59 DAILY MENDEL Levothyroxine Sodium 25 mcg 05/02/22 10:00 Levothyroxine Sodium 25 Mcg Tablet PO 06/01/22 09:59 DAILY MENDEL Metoprolol Tartrate 50 mg 05/01/22 22:00 05/01/22 21:43 Metoprolol Tartrate 50 Mg Tablet PO 05/31/22 21:59 50 mg BID MENDEL Administration Miscellaneous Information 1 each 05/01/22 18:30 Medication Intervention 1 Each Each 05/31/22 18:29 .RN TO CHECK MENDEL Morphine Sulfate 2 mg 05/01/22 15:39 Morphine Sulfate 2 Mg/Ml Inj IV 05/06/22 15:38 Q4H PRN PRN PAIN Olanzapine 20 mg 05/01/22 22:00 05/01/22 21:43 Olanzapine 5 Mg Tab PO 05/31/22 21:59 20 mg HS MENDEL Administration Ondansetron HCl 4 mg 05/01/22 15:39 Ondansetron Hcl 4 Mg/2 Ml Vial IV 05/31/22 15:38 Q6H PRN PRN NAUSEA/VOMITING Pantoprazole Sodium 40 mg 05/01/22 16:30 05/01/22 17:30 Pantoprazole 40 Mg Vial IV 05/31/22 16:29 Not Given Q24H10 MENDEL Potassium Chloride 10 meq 05/01/22 17:38 Potassium Chloride Tab 10 Meq Tab PO 05/31/22 17:37 BIDPRN PRN WITH DIURETIC Promethazine HCl 25 mg 05/01/22 10:00 05/01/22 17:29 Promethazine Hcl 25 Mg Tablet PO 05/31/22 09:59 Not Given DAILY MENDEL Propranolol HCl 40 mg 05/02/22 10:00 Propranolol Hcl 20 Mg Tablet PO 06/01/22 09:59 DAILY MENDEL Fluticasone/Salmeterol 2 puff 05/01/22 19:00 05/01/22 19:10 Fluticasone/Salmeterol 115/21 - 120 Puff Common Canister IH 05/31/22 18:59 2 puff BIDRT MENDEL Administration Tizanidine HCl 4 mg 05/01/22 16:43 Tizanidine Hcl 4 Mg Tablet PO 05/31/22 16:42 Q8HPRN PRN PAIN Discontinued Medications Generic Name Dose Route Start Last Admin Trade Name Freq PRN Reason Stop Dose Admin Albuterol/Ipratropium 3 ml 05/01/22 12:34 05/01/22 12:40 Ipratropium/Albuterol Sulfate 3 Ml Ampul.Neb IH 05/01/22 12:35 3 ml STAT ONE Administration Albuterol/Ipratropium Confirm 05/01/22 12:39 Ipratropium/Albuterol Sulfate 3 Ml Ampul.Neb Administered 05/01/22 12:40 Dose 3 ml IH .STK-MED ONE Methylprednisolone Sodium 0 mg 05/01/22 12:34 05/01/22 12:41 Succinate 125 mg/ Sterile IV 05/01/22 12:35 125 mg Water 2 ml STAT ONE Administration Fluoxetine HCl 20 mg 05/01/22 17:00 05/01/22 17:40 Fluoxetine Hcl 20 Mg Cap PO 05/31/22 16:59 Not Given DAILY MENDEL Furosemide 40 mg 05/01/22 14:54 05/01/22 14:55 Furosemide 40 Mg/4 Ml Vial IV 05/01/22 14:55 40 mg STAT ONE Administration Furosemide Confirm 05/01/22 14:53 Furosemide 40 Mg/4 Ml Vial Administered 05/01/22 14:54 Dose 40 mg .ROUTE .STK-MED ONE Azithromycin 500 mg in 250 mls @ 250 mls/hr 05/01/22 13:32 05/01/22 14:55 Zithromax 500 Mg/ 250 Ml Nacl Premix IV 05/01/22 14:31 250 ml/hr STAT STA 250 mls/hr Administration Ceftriaxone Sodium/Dextrose 2 g in 50 mls @ 100 mls/hr 05/01/22 13:32 05/01/22 14:46 Rocephin 2 Gm-D5w 50ml Bag IV 05/01/22 14:01 Infused STAT STA Infusion Ceftriaxone Sodium/Dextrose Confirm 05/01/22 14:15 Rocephin 2 Gm-D5w 50ml Bag Administered 05/01/22 14:16 Dose 2 g in 50 mls @ ud IV .STK-MED ONE Azithromycin Confirm 05/01/22 14:49 Zithromax 500 Mg/ 250 Ml Nacl Premix Administered 05/01/22 14:50 Dose 500 mg in 250 mls @ ud IV .STK-MED ONE Methylprednisolone Sodium Succinate Confirm 05/01/22 12:37 Methylprednis Sod Succ 125 Mg/2 Ml Vial Administered 05/01/22 12:38 Dose 125 mg .ROUTE .STK-MED ONE Promethazine HCl 25 mg 05/01/22 17:00 05/01/22 17:40 Promethazine Hcl 25 Mg Tablet PO 05/31/22 16:59 Not Given DAILY MENDEL Rifaximin 550 mg 05/01/22 22:00 Rifaximin 200 Mg Tablet PO 05/31/22 21:59 BID MENDEL Sterile Water Confirm 05/01/22 12:37 Water For Injection,Sterile 10 Ml Vial Administered 05/01/22 12:38 Dose 10 ml IJ .K-MED ONE Lab/Rad Data: Laboratory Result Diagrams 05/01/22 12:56 05/01/22 12:56 Laboratory Results 05/01/22 05/01/22 05/01/22 Range/Units 15:00 13:52 12:56 WBC (4.0-10.5) x10^3/uL RBC (4.1-5.6) x10^6/uL Hgb (12.5-18.0) g/dL Hct (42-50) % MCV (78-100) fL MCH (26-32) pg MCHC (32-36) g/dL RDW (11.5-14.0) % Plt Count (150-450) x10^3/uL MPV (7.5-11.0) fL Gran % (36.0-66.0) % Immature Gran % (Auto) (0.00-0.4) % Nucleat RBC Rel Count (0.00-0.1) % Eos # (Auto) (0-0.5) x10^3/uL Immature Gran # (Auto) (0.00-0.03) x10^3u/L Absolute Lymphs (auto) (1.0-4.6) x10^3/uL Absolute Monos (auto) (0.0-1.3) x10^3/uL Absolute Nucleated RBC (0.00-0.01) x10^3u/L Lymphocytes % (24.0-44.0) % Monocytes % (0.0-12.0) % Eosinophils % (0.00-5.0) % Basophils % (0.0-0.4) % Absolute Granulocytes (1.4-6.9) x10^3/uL Basophils # (0-0.4) x10^3/uL Sodium (137-145) mmol/L Potassium (3.5-5.1) mmol/L Chloride (98-107) mmol/L Carbon Dioxide (22-30) mmol/L Anion Gap (5-15) MEQ/L BUN (9-20) mg/dL Creatinine (0.66-1.25) mg/dL Estimated GFR ML/MIN Glucose (74-106) mg/dL Lactic Acid (0.4-2.0) Calcium (8.4-10.2) mg/dL Magnesium (1.6-2.3) mg/dL Total Bilirubin (0.2-1.3) mg/dL AST (17-59) U/L ALT (0-50) U/L Alkaline Phosphatase (38-126) U/L Troponin I (0.000-0.034) ng/mL NT-Pro-B Natriuret Pep (0-900) pg/mL Serum Total Protein (6.3-8.2) g/dL Albumin (3.5-5.0) g/dL Procalcitonin 0.119 H (0.030-0.080) ng/mL Urinalys Dipstick Clnc MAIN LAB Urine Color YELLOW (YELLOW) Urine Appearance CLEAR (CLEAR) Urine pH 7.5 (5-6) Ur Specific [place] 1.015 (1.005-1.025) POC Urine Protein Conf >=300 (Negative) Urine Ketones NEGATIVE (NEGATIVE) Urine Nitrite NEGATIVE (NEGATIVE) Urine Bilirubin NEGATIVE (NEGATIVE) Urine Urobilinogen 0.2 (0-1) mg/dL Urine Leukocytes NEGATIVE (NEGATIVE) Urine WBC (Auto) 6-10 (0-5) /HPF Urine RBC (Auto) 0-2 (0-2) /HPF U Epithel Cells (Auto) NONE (FEW) /HPF Urine Bacteria (Auto) NONE (NEGATIVE) /HPF Urine RBC MODERATE (0-5) Christopher/ul Unidentified Crystals 2-5 (NEGATIVE) /HPF Ur Culture Indicated? YES Urine Glucose NEGATIVE (NEGATIVE) mg/dL Influenza Type A Ag NEGATIVE (NEGATIVE) Influenza Type B Ag NEGATIVE (NEGATIVE) RSV (PCR) NEGATIVE (Negative) SARS-CoV-2 (PCR) NEGATIVE (NEGATIVE) Slides for Path Review 05/01/22 05/01/22 05/01/22 Range/Units 12:56 12:56 12:56 WBC 5.6 (4.0-10.5) x10^3/uL RBC 5.35 (4.1-5.6) x10^6/uL Hgb 16.6 (12.5-18.0) g/dL Hct 51.3 H (42-50) % MCV 95.9 (78-100) fL MCH 31.0 (26-32) pg MCHC 32.4 (32-36) g/dL RDW 15.9 H (11.5-14.0) % Plt Count 79 L (150-450) x10^3/uL MPV 10.8 (7.5-11.0) fL Gran % 55.6 (36.0-66.0) % Immature Gran % (Auto) 0.7 H (0.00-0.4) % Nucleat RBC Rel Count 0.0 (0.00-0.1) % Eos # (Auto) 0.13 (0-0.5) x10^3/uL Immature Gran # (Auto) 0.04 H (0.00-0.03) x10^3u/L Absolute Lymphs (auto) 1.62 (1.0-4.6) x10^3/uL Absolute Monos (auto) 0.63 (0.0-1.3) x10^3/uL Absolute Nucleated RBC 0.00 (0.00-0.01) x10^3u/L Lymphocytes % 28.8 (24.0-44.0) % Monocytes % 11.2 (0.0-12.0) % Eosinophils % 2.3 (0.00-5.0) % Basophils % 1.4 (0.0-0.4) % Absolute Granulocytes 3.12 (1.4-6.9) x10^3/uL Basophils # 0.08 (0-0.4) x10^3/uL Sodium 140 (137-145) mmol/L Potassium 4.2 (3.5-5.1) mmol/L Chloride 106 (98-107) mmol/L Carbon Dioxide 30 (22-30) mmol/L Anion Gap 8.0 (5-15) MEQ/L BUN 9 (9-20) mg/dL Creatinine 0.81 (0.66-1.25) mg/dL Estimated GFR > 60.0 ML/MIN Glucose 122 H (74-106) mg/dL Lactic Acid (0.4-2.0) Calcium 8.3 L (8.4-10.2) mg/dL Magnesium 1.7 (1.6-2.3) mg/dL Total Bilirubin 1.00 (0.2-1.3) mg/dL AST 31 (17-59) U/L ALT 15 (0-50) U/L Alkaline Phosphatase 106 (38-126) U/L Troponin I < 0.012 (0.000-0.034) ng/mL NT-Pro-B Natriuret Pep 1040 H (0-900) pg/mL Serum Total Protein 7.1 (6.3-8.2) g/dL Albumin 3.5 (3.5-5.0) g/dL Procalcitonin (0.030-0.080) ng/mL Urinalys Dipstick Clnc Urine Color (YELLOW) Urine Appearance (CLEAR) Urine pH (5-6) Ur Specific [place] (1.005-1.025) POC Urine Protein Conf (Negative) Urine Ketones (NEGATIVE) Urine Nitrite (NEGATIVE) Urine Bilirubin (NEGATIVE) Urine Urobilinogen (0-1) mg/dL Urine Leukocytes (NEGATIVE) Urine WBC (Auto) (0-5) /HPF Urine RBC (Auto) (0-2) /HPF U Epithel Cells (Auto) (FEW) /HPF Urine Bacteria (Auto) (NEGATIVE) /HPF Urine RBC (0-5) Christopher/ul Unidentified Crystals (NEGATIVE) /HPF Ur Culture Indicated? Urine Glucose (NEGATIVE) mg/dL Influenza Type A Ag (NEGATIVE) Influenza Type B Ag (NEGATIVE) RSV (PCR) (Negative) SARS-CoV-2 (PCR) (NEGATIVE) Slides for Path Review YES 05/01/22 Range/Units 12:51 WBC (4.0-10.5) x10^3/uL RBC (4.1-5.6) x10^6/uL Hgb (12.5-18.0) g/dL Hct (42-50) % MCV (78-100) fL MCH (26-32) pg MCHC (32-36) g/dL RDW (11.5-14.0) % Plt Count (150-450) x10^3/uL MPV (7.5-11.0) fL Gran % (36.0-66.0) % Immature Gran % (Auto) (0.00-0.4) % Nucleat RBC Rel Count (0.00-0.1) % Eos # (Auto) (0-0.5) x10^3/uL Immature Gran # (Auto) (0.00-0.03) x10^3u/L Absolute Lymphs (auto) (1.0-4.6) x10^3/uL Absolute Monos (auto) (0.0-1.3) x10^3/uL Absolute Nucleated RBC (0.00-0.01) x10^3u/L Lymphocytes % (24.0-44.0) % Monocytes % (0.0-12.0) % Eosinophils % (0.00-5.0) % Basophils % (0.0-0.4) % Absolute Granulocytes (1.4-6.9) x10^3/uL Basophils # (0-0.4) x10^3/uL Sodium (137-145) mmol/L Potassium (3.5-5.1) mmol/L Chloride (98-107) mmol/L Carbon Dioxide (22-30) mmol/L Anion Gap (5-15) MEQ/L BUN (9-20) mg/dL Creatinine (0.66-1.25) mg/dL Estimated GFR ML/MIN Glucose (74-106) mg/dL Lactic Acid 1.3 (0.4-2.0) Calcium (8.4-10.2) mg/dL Magnesium (1.6-2.3) mg/dL Total Bilirubin (0.2-1.3) mg/dL AST (17-59) U/L ALT (0-50) U/L Alkaline Phosphatase (38-126) U/L Troponin I (0.000-0.034) ng/mL NT-Pro-B Natriuret Pep (0-900) pg/mL Serum Total Protein (6.3-8.2) g/dL Albumin (3.5-5.0) g/dL Procalcitonin (0.030-0.080) ng/mL Urinalys Dipstick Clnc Urine Color (YELLOW) Urine Appearance (CLEAR) Urine pH (5-6) Ur Specific [place] (1.005-1.025) POC Urine Protein Conf (Negative) Urine Ketones (NEGATIVE) Urine Nitrite (NEGATIVE) Urine Bilirubin (NEGATIVE) Urine Urobilinogen (0-1) mg/dL Urine Leukocytes (NEGATIVE) Urine WBC (Auto) (0-5) /HPF Urine RBC (Auto) (0-2) /HPF U Epithel Cells (Auto) (FEW) /HPF Urine Bacteria (Auto) (NEGATIVE) /HPF Urine RBC (0-5) Christopher/ul Unidentified Crystals (NEGATIVE) /HPF Ur Culture Indicated? Urine Glucose (NEGATIVE) mg/dL Influenza Type A Ag (NEGATIVE) Influenza Type B Ag (NEGATIVE) RSV (PCR) (Negative) SARS-CoV-2 (PCR) (NEGATIVE) Slides for Path Review - Progress Progress: re-examined Air Movement: fair Progress Note: 05/01/22 13:36 51 years old is evaluated for worsening shortness of breath and cough. Patient was hypoxic on presentation, placed on 4 L oxygen. Has normal white count, elevated procalcitonin with chest x-ray showing some opacities, started on antibiotics. Has normal lactate. Negative initial troponin. Patient is on Eliquis. Discussed with Dr. Gaona, Reviewed history, work-up and patient is excepted for admission. 05/01/22 13:45 Blood Culture(s) Obtained: Yes Antibiotics given: Yes Discussed with Dr.: Brennan Counseled pt/family regarding: lab results, diagnosis, rad results - Departure Departure Disposition: In-patient Admission Clinical Impression: Respiratory failure Qualifiers: Chronicity: acute Respiratory failure complication: hypoxia Qualified Code(s): J96.01 - Acute respiratory failure with hypoxia Pneumonia Qualifiers: Pneumonia type: due to Pneumococcus Laterality: bilateral Lung location: lower lobe of lung Qualified Code(s): J13 - Pneumonia due to Streptococcus pneumoniae Condition: Stable Critical Care Time: No
[2022-05-01] MEDS ORDERED: ROCEPHIN 2 Gm-D5w 50ML BAG** 2 G/50 ML IVPB IV STA (13:32)
[2022-05-01] MEDS ORDERED: Zithromax 500 MG/ 250 ML NaCl Premix 500 MG/250 ML IVPB IV STA (13:32)
[2022-05-01 14:09] LABS: RBC 0-2 /HPF (0-2)
[2022-05-01 14:10] LABS: Appearance CLEAR (CLEAR); Bilirubin NEGATIVE (NEGATIVE); Dipstick done @ ? MAIN LAB; Glucose NEGATIVE (NEGATIVE); Ketones NEGATIVE (NEGATIVE); Nitrite NEGATIVE (NEGATIVE); Ph 7.5 (5-6); Protein,Urine Dip >=300 (Negative); RBC MODERATE Ery/ul (0-5); Specific Gravity 1.015 (1.005-1.025); Urobilinogen 0.2 mg/dL (0-1)
[2022-05-01] MEDS ORDERED: ROCEPHIN 2 Gm-D5w 50ML BAG** 2 G/50 ML IVPB IV ONE (14:15)
[2022-05-01 14:20] LABS: Urine Cultured Indicated? YES
[2022-05-01] MEDS ORDERED: Zithromax 500 MG/ 250 ML NaCl Premix 500 MG/250 ML IVPB IV ONE (14:49)
[2022-05-01] MEDS ORDERED: Lasix 40 MG/4 ML ONE (14:53)
[2022-05-01] MEDS ORDERED: Lasix 40 MG/4 ML IV ONE (14:54)
[2022-05-01 15:19] LABS: INFLUENZA A NEGATIVE (NEGATIVE); INFLUENZA B NEGATIVE (NEGATIVE); RESPIRATORY SYNCTIAL VIRUS NEGATIVE (Negative); SARS-CoV-2 Xpert Express NEGATIVE (NEGATIVE)
[2022-05-01] MEDS ORDERED: TYLENOL 325 MG PO PRN (15:39)
[2022-05-01] MEDS ORDERED: Zofran 4 MG/2 ML VIAL IV PRN (15:39)
[2022-05-01 15:54] LABS: Slide Review 1 YES
[2022-05-01] MEDS ORDERED: [UNRECOGNIZED DRUG - OTHER] PO PRN (16:43)
[2022-05-01] MEDS ORDERED: ATARAX 25 MG PO PRN (16:43)
[2022-05-01] MEDS ORDERED: Zanaflex 4 MG PO PRN (16:43)
[2022-05-01] MEDS ORDERED: CHOLESTYRAMINE 378 GM PO PRN (16:43)
[2022-05-01] MEDS ORDERED: NON-FORMULARY ITEM (Potassium Chloride [Klor-Con 8] 8 MEQ Tablet.Er) PO PRN (16:43)
[2022-05-01] MEDS ORDERED: Prozac 20 MG PO SCH (17:00)
[2022-05-01] MEDS ORDERED: PHENERGAN 25 MG PO SCH (17:00)
[2022-05-01] MEDS ORDERED: QUESTRAN Light 4 GM Packet PO PRN (17:04)
[2022-05-01] MEDS: PHENERGAN 25 MG PO SCH (17:29)
[2022-05-01] MEDS: PROTONIX 40 MG IV IV SCH (17:30)
[2022-05-01] MEDS: Prozac 20 MG PO SCH (17:30)
[2022-05-01] MEDS: BUMEX 1 MG PO SCH (17:30)
[2022-05-01] MEDS: MORPHINE SULFATE 2 MG INJ IV PRN ×2 (17:32→17:35)
[2022-05-01] MEDS ORDERED: BUMEX 1 MG PO PRN (17:36)
[2022-05-01] MEDS ORDERED: Klor Con PO PRN (17:38)
[2022-05-01] MEDS: solu-MEDROL 60 MG, Sterile H2O 10 ml 2 ML IV SCH ×4 (17:41→23:48)
--- NOTE | 2022-05-01 18:21 | PCM.HP ---
History of Present Illness - Chief Complaint Chief Complaint: shortness of breath and fever for 2-3 days History of Present Illness: is a 51 year old male.morbidly obese male with history of atrial fibrillation on Eliquis, COPD, tobacco abuse presented in the ER with chief complaint of worsening shortness of breath and cough for the last 5 days. Patient reports cough productive of clear to yellow sputum moderate in amount with increasing shortness of breath especially with activity and partial relief with resting. Patient was seen earlier today at [facility], oxygen saturation was dropping and upper 80s, sent in here for further evaluation. Patient is currently on 4 L oxygen with sats around 93%. Has bilateral rhonchi wheezing. No fever or chills reported. Timing/Duration: day(s) (5), gradual onset, worse Severity of Dyspnea-Max: moderate Severity of Dyspnea-Current: moderate Possible Cause: unknown cause Modifying Factors: Improves With: oxygen. Worsens With: coughing, exertion Associated Symptoms: cough, chest pain/discomfort, edema, wheezing, productive cough, tightness, No fever - Review of Systems Constitutional: Fever, Chills Eyes: No Symptoms Ears, Nose, & Throat: No Symptoms Respiratory: Cough, Short Of Breath Cardiac: No Chest Pain, No Edema, No Syncope Abdominal/Gastrointestinal: No Abdominal Pain, No Nausea, No Vomiting, No Diarrhea Genitourinary Symptoms: No Dysuria Musculoskeletal: No Back Pain, No Neck Pain Skin: No Rash Neurological: No Dizziness, No Focal Weakness, No Sensory Changes Psychological: No Symptoms Endocrine: No Symptoms Hematologic/Lymphatic: No Symptoms Immunological/Allergic: No Symptoms Medications & Allergies Home Medications: Home Medication List Propranolol HCl 40 mg PO DAILY 11/04/18 [History Confirmed 05/01/22] Albuterol Common Canister [Ventolin Common Canister] 2 puffs IH Q4HPRN PRN 30 Days #1 puff 08/31/20 [Rx Confirmed 05/01/22] Fluoxetine HCl 20 mg [Prozac 20 MG] 20 mg PO DAILY 30 Days #30 cap 08/31/20 [Rx Confirmed 05/01/22] Rifaximin [Xifaxan] 550 mg PO BID 30 Days #60 tablet 08/31/20 [Rx Confirmed 05/01/22] Alprazolam [Xanax] 0.5 mg PO TID 03/05/21 [History Confirmed 05/01/22] Levothyroxine Sodium 175 mcg PO DAILY 03/05/21 [History Confirmed 05/01/22] OLANZapine [Zyprexa] 20 mg PO HS 03/05/21 [History Confirmed 05/01/22] Potassium Chloride [Klor-Con 8] 8 meq PO DAILY PRN PRN 03/05/21 [History Confirmed 05/01/22] Apixaban [Eliquis] 5 mg PO BID #60 tablet 03/08/21 [Rx Confirmed 05/01/22] Bumetanide 1 mg [Bumex 1 mg] 2 mg PO BID 03/24/22 [History Confirmed 05/01/22] Cholestyramine (with Sugar) [Questran Powder] 1 scoop PO DAILY PRN PRN 03/24/22 [History Confirmed 05/01/22] Promethazine HCl 25 mg [Phenergan 25 mg] 25 mg PO DAILY 03/24/22 [History Confirmed 05/01/22] Gabapentin 600 mg PO TID 05/01/22 [History Confirmed 05/01/22] Hydroxyzine HCl 25 mg [Atarax 25 mg] 25 mg PO TID PRN 05/01/22 [History Confirmed 05/01/22] Metoprolol Tartrate 50 mg [Lopressor 50 MG] 50 mg PO BID 05/01/22 [History Confirmed 05/01/22] Tizanidine HCl 4 mg [Zanaflex 4 MG] 4 mg PO Q8H PRN 05/01/22 [History Confi rmed 05/01/22] Allergies/Adverse Reactions: Allergies Allergy/AdvReac Type Severity Reaction Status Date / Time nitrofurantoin Allergy Rash Verified 05/01/22 15:55 [From Macrobid] adhesive tape AdvReac Verified 05/01/22 15:55 - Past Medical History Past Medical History: Yes Neurological History: No Pertinent History ENT History: No Pertinent History Cardiac History: Arrhythmia, Coronary Artery Disease, Hypertension Respiratory History: Asthma, Bronchitis, CHF, COPD, Pneumonia Endocrine Medical History: Hypothyroidism Musculoskelatal History: Osteoarthritis GI Medical History: Hepatitis, Cirrhosis History: No Pertinent History Pyscho-Social History: Anxiety, Bipolar, Depression Male Reproductive Disorders: No Pertinent History Comment: frequent cellulitis in lower extremities - Past Surgical History Past Surgical History: Yes Neuro Surgical History: No Pertinent History Cardiac History: No Pertinent History, Cardiac Catheterization Respiratory Surgery: No Pertinent History GI Surgical History: Cholecystectomy Genitourinary Surgical Hx: No Pertinent History Musculskeletal Surgical Hx: Orthopedic Surgery Male Surgical History: No Pertinent History Other Surgical History: rt knee,. had cath 5 or 6 years ago. - Social History Smoking Status: Current every day smoker How long have you smoked: 20 yrs Exposure to second hand smoke: Yes Alcohol: None Drug Use: none - Physical Exam Vital Signs: Vital Signs - 24 hr Temp Pulse Resp BP Pulse Ox 05/01/22 16:52 100 H 18 91 L 05/01/22 15:57 97.1 F 87 21 137/83 90 L 05/01/22 14:29 98 H 17 135/109 94 L 05/01/22 13:48 94 L 05/01/22 12:43 98 H 18 94 L 05/01/22 12:17 97.9 F 94 H 20 122/85 92 L General Appearance: no apparent distress, alert Neurologic Exam: alert, oriented x 3, cooperative, normal mood/affect, sensation nml, No motor deficits Eye Exam: PERRL/EOMI, eyes nml inspection Ears, Nose, Throat Exam: normal ENT inspection, TMs normal, pharynx normal, moist mucous membranes Neck Exam: normal inspection, non-tender, supple, full range of motion Respiratory Exam: diminished breath sounds, crackles/rales, rhonchi, wheezing, No respiratory distress Cardiovascular Exam: regular rate/rhythm, normal heart sounds, normal peripheral pulses Gastrointestinal/Abdomen Exam: soft, normal bowel sounds, No tenderness, No mass Back Exam: normal inspection, normal range of motion, No CVA tenderness, No vertebral tenderness Extremity Exam: normal inspection, normal range of motion, pelvis stable Skin Exam: normal color, warm, dry, No rash Lymphatic Exam: No adenopathy Results - Labs Lab/Micro Results: Lab Results-Last 24 Hours 05/01/22 05/01/22 05/01/22 Range/Units 12:51 12:56 12:56 WBC 5.6 (4.0-10.5) x10^3/uL RBC 5.35 (4.1-5.6) x10^6/uL Hgb 16.6 (12.5-18.0) g/dL Hct 51.3 H (42-50) % MCV 95.9 (78-100) fL MCH 31.0 (26-32) pg MCHC 32.4 (32-36) g/dL RDW 15.9 H (11.5-14.0) % Plt Count 79 L (150-450) x10^3/uL MPV 10.8 (7.5-11.0) fL Gran % 55.6 (36.0-66.0) % Immature Gran % (Auto) 0.7 H (0.00-0.4) % Nucleat RBC Rel Count 0.0 (0.00-0.1) % Eos # (Auto) 0.13 (0-0.5) x10^3/uL Immature Gran # (Auto) 0.04 H (0.00-0.03) x10^3u/L Absolute Lymphs (auto) 1.62 (1.0-4.6) x10^3/uL Absolute Monos (auto) 0.63 (0.0-1.3) x10^3/uL Absolute Nucleated RBC 0.00 (0.00-0.01) x10^3u/L Lymphocytes % 28.8 (24.0-44.0) % Monocytes % 11.2 (0.0-12.0) % Eosinophils % 2.3 (0.00-5.0) % Basophils % 1.4 (0.0-0.4) % Absolute Granulocytes 3.12 (1.4-6.9) x10^3/uL Basophils # 0.08 (0-0.4) x10^3/uL Sodium 140 (137-145) mmol/L Potassium 4.2 (3.5-5.1) mmol/L Chloride 106 (98-107) mmol/L Carbon Dioxide 30 (22-30) mmol/L Anion Gap 8.0 (5-15) MEQ/L BUN 9 (9-20) mg/dL Creatinine 0.81 (0.66-1.25) mg/dL Estimated GFR > 60.0 ML/MIN Glucose 122 H (74-106) mg/dL Lactic Acid 1.3 (0.4-2.0) Calcium 8.3 L (8.4-10.2) mg/dL Magnesium 1.7 (1.6-2.3) mg/dL Total Bilirubin 1.00 (0.2-1.3) mg/dL AST 31 (17-59) U/L ALT 15 (0-50) U/L Alkaline Phosphatase 106 (38-126) U/L Troponin I (0.000-0.034) ng/mL NT-Pro-B Natriuret Pep 1040 H (0-900) pg/mL Serum Total Protein 7.1 (6.3-8.2) g/dL Albumin 3.5 (3.5-5.0) g/dL Procalcitonin (0.030-0.080) ng/mL Urinalys Dipstick Clnc Urine Color (YELLOW) Urine Appearance (CLEAR) Urine pH (5-6) Ur Specific Vass (1.005-1.025) POC Urine Protein Conf (Negative) Urine Ketones (NEGATIVE) Urine Nitrite (NEGATIVE) Urine Bilirubin (NEGATIVE) Urine Urobilinogen (0-1) mg/dL Urine Leukocytes (NEGATIVE) Urine WBC (Auto) (0-5) /HPF Urine RBC (Auto) (0-2) /HPF U Epithel Cells (Auto) (FEW) /HPF Urine Bacteria (Auto) (NEGATIVE) /HPF Urine RBC (0-5) Christopher/ul Unidentified Crystals (NEGATIVE) /HPF Ur Culture Indicated? Urine Glucose (NEGATIVE) mg/dL Influenza Type A Ag (NEGATIVE) Influenza Type B Ag (NEGATIVE) RSV (PCR) (Negative) SARS-CoV-2 (PCR) (NEGATIVE) Slides for Path Review YES 05/01/22 05/01/22 05/01/22 Range/Units 12:56 12:56 13:52 WBC (4.0-10.5) x10^3/uL RBC (4.1-5.6) x10^6/uL Hgb (12.5-18.0) g/dL Hct (42-50) % MCV (78-100) fL MCH (26-32) pg MCHC (32-36) g/dL RDW (11.5-14.0) % Plt Count (150-450) x10^3/uL MPV (7.5-11.0) fL Gran % (36.0-66.0) % Immature Gran % (Auto) (0.00-0.4) % Nucleat RBC Rel Count (0.00-0.1) % Eos # (Auto) (0-0.5) x10^3/uL Immature Gran # (Auto) (0.00-0.03) x10^3u/L Absolute Lymphs (auto) (1.0-4.6) x10^3/uL Absolute Monos (auto) (0.0-1.3) x10^3/uL Absolute Nucleated RBC (0.00-0.01) x10^3u/L Lymphocytes % (24.0-44.0) % Monocytes % (0.0-12.0) % Eosinophils % (0.00-5.0) % Basophils % (0.0-0.4) % Absolute Granulocytes (1.4-6.9) x10^3/uL Basophils # (0-0.4) x10^3/uL Sodium (137-145) mmol/L Potassium (3.5-5.1) mmol/L Chloride (98-107) mmol/L Carbon Dioxide (22-30) mmol/L Anion Gap (5-15) MEQ/L BUN (9-20) mg/dL Creatinine (0.66-1.25) mg/dL Estimated GFR ML/MIN Glucose (74-106) mg/dL Lactic Acid (0.4-2.0) Calcium (8.4-10.2) mg/dL Magnesium (1.6-2.3) mg/dL Total Bilirubin (0.2-1.3) mg/dL AST (17-59) U/L ALT (0-50) U/L Alkaline Phosphatase (38-126) U/L Troponin I < 0.012 (0.000-0.034) ng/mL NT-Pro-B Natriuret Pep (0-900) pg/mL Serum Total Protein (6.3-8.2) g/dL Albumin (3.5-5.0) g/dL Procalcitonin 0.119 H (0.030-0.080) ng/mL Urinalys Dipstick Clnc MAIN LAB Urine Color YELLOW (YELLOW) Urine Appearance CLEAR (CLEAR) Urine pH 7.5 (5-6) Ur Specific Vass 1.015 (1.005-1.025) POC Urine Protein Conf >=300 (Negative) Urine Ketones NEGATIVE (NEGATIVE) Urine Nitrite NEGATIVE (NEGATIVE) Urine Bilirubin NEGATIVE (NEGATIVE) Urine Urobilinogen 0.2 (0-1) mg/dL Urine Leukocytes NEGATIVE (NEGATIVE) Urine WBC (Auto) 6-10 (0-5) /HPF Urine RBC (Auto) 0-2 (0-2) /HPF U Epithel Cells (Auto) NONE (FEW) /HPF Urine Bacteria (Auto) NONE (NEGATIVE) /HPF Urine RBC MODERATE (0-5) Christopher/ul Unidentified Crystals 2-5 (NEGATIVE) /HPF Ur Culture Indicated? YES Urine Glucose NEGATIVE (NEGATIVE) mg/dL Influenza Type A Ag (NEGATIVE) Influenza Type B Ag (NEGATIVE) RSV (PCR) (Negative) SARS-CoV-2 (PCR) (NEGATIVE) Slides for Path Review 05/01/22 Range/Units 15:00 WBC (4.0-10.5) x10^3/uL RBC (4.1-5.6) x10^6/uL Hgb (12.5-18.0) g/dL Hct (42-50) % MCV (78-100) fL MCH (26-32) pg MCHC (32-36) g/dL RDW (11.5-14.0) % Plt Count (150-450) x10^3/uL MPV (7.5-11.0) fL Gran % (36.0-66.0) % Immature Gran % (Auto) (0.00-0.4) % Nucleat RBC Rel Count (0.00-0.1) % Eos # (Auto) (0-0.5) x10^3/uL Immature Gran # (Auto) (0.00-0.03) x10^3u/L Absolute Lymphs (auto) (1.0-4.6) x10^3/uL Absolute Monos (auto) (0.0-1.3) x10^3/uL Absolute Nucleated RBC (0.00-0.01) x10^3u/L Lymphocytes % (24.0-44.0) % Monocytes % (0.0-12.0) % Eosinophils % (0.00-5.0) % Basophils % (0.0-0.4) % Absolute Granulocytes (1.4-6.9) x10^3/uL Basophils # (0-0.4) x10^3/uL Sodium (137-145) mmol/L Potassium (3.5-5.1) mmol/L Chloride (98-107) mmol/L Carbon Dioxide (22-30) mmol/L Anion Gap (5-15) MEQ/L BUN (9-20) mg/dL Creatinine (0.66-1.25) mg/dL Estimated GFR ML/MIN Glucose (74-106) mg/dL Lactic Acid (0.4-2.0) Calcium (8.4-10.2) mg/dL Magnesium (1.6-2.3) mg/dL Total Bilirubin (0.2-1.3) mg/dL AST (17-59) U/L ALT (0-50) U/L Alkaline Phosphatase (38-126) U/L Troponin I (0.000-0.034) ng/mL NT-Pro-B Natriuret Pep (0-900) pg/mL Serum Total Protein (6.3-8.2) g/dL Albumin (3.5-5.0) g/dL Procalcitonin (0.030-0.080) ng/mL Urinalys Dipstick Clnc Urine Color (YELLOW) Urine Appearance (CLEAR) Urine pH (5-6) Ur Specific Vass (1.005-1.025) POC Urine Protein Conf (Negative) Urine Ketones (NEGATIVE) Urine Nitrite (NEGATIVE) Urine Bilirubin (NEGATIVE) Urine Urobilinogen (0-1) mg/dL Urine Leukocytes (NEGATIVE) Urine WBC (Auto) (0-5) /HPF Urine RBC (Auto) (0-2) /HPF U Epithel Cells (Auto) (FEW) /HPF Urine Bacteria (Auto) (NEGATIVE) /HPF Urine RBC (0-5) Christopher/ul Unidentified Crystals (NEGATIVE) /HPF Ur Culture Indicated? Urine Glucose (NEGATIVE) mg/dL Influenza Type A Ag NEGATIVE (NEGATIVE) Influenza Type B Ag NEGATIVE (NEGATIVE) RSV (PCR) NEGATIVE (Negative) SARS-CoV-2 (PCR) NEGATIVE (NEGATIVE) Slides for Path Review - Radiology Impressions Radiology Exams & Impressions: Radiology Procedures Category Date Time Status CHEST 1 VIEW (PORTABLE) Stat Exams 05/01/22 13:14 Completed - Other Procedures and Tests Respiratory Therapy 05/01/22 15:58 Respiratory Therapy Assessment DAILY 05/01/22 15:59 Oxygen Nasal Cannula 1 lpm Assessment/Plan (1) Respiratory failure Current Visit: Yes Status: Acute Qualifiers: Chronicity: acute Respiratory failure complication: hypoxia Qualified Code(s): J96.01 - Acute respiratory failure with hypoxia Assessment & Plan: Chief Complaint Diagnosis Respiratory failure Allergies Allergy/AdvReac Type Severity Reaction Status Date / Time nitrofurantoin Allergy Rash Verified 05/01/22 15:55 [From Macrobid] adhesive tape AdvReac Verified 05/01/22 15:55 Vital Signs (Last 24 hours) Temp Pulse Resp BP Pulse Ox 05/01/22 16:52 100 H 18 91 L 05/01/22 15:57 97.1 F 87 21 137/83 90 L 05/01/22 14:29 98 H 17 135/109 94 L 05/01/22 13:48 94 L 05/01/22 12:43 98 H 18 94 L 05/01/22 12:17 97.9 F 94 H 20 122/85 92 L Home Medications Medication Instructions Recorded Confirmed Last Taken Type Gabapentin 600 mg PO TID 05/01/22 05/01/22 05/01/22 09:00 History Hydroxyzine HCl 25 mg [Atarax 25 mg PO TID PRN 05/01/22 05/01/22 Unknown History 25 mg] Metoprolol Tartrate 50 mg 50 mg PO BID 05/01/22 05/01/22 05/01/22 09:00 History [Lopressor 50 MG] Tizanidine HCl 4 mg [Zanaflex 4 4 mg PO Q8H PRN 05/01/22 05/01/22 04/30/22 21:00 History MG] Current Medications Generic Name Dose Route Start Last Admin Trade Name Freq PRN Reason Stop Dose Admin Acetaminophen 650 mg 05/01/22 15:39 Acetaminophen 325 Mg Tablet PO 05/31/22 15:38 Q4H PRN PRN PAIN AND/OR FEVER Albuterol Sulfate 4 puff 05/01/22 19:00 Albuterol Common Canister Inhaler 05/31/22 18:59 QIDRT MENDEL Albuterol/Ipratropium 3 ml 05/01/22 19:00 Ipratropium/Albuterol Sulfate 3 Ml Ampul.Neb IH 05/31/22 18:59 Q6HRT MENDEL Alprazolam 0.5 mg 05/01/22 22:00 Alprazolam 0.5 Mg Tablet PO 05/31/22 21:59 TID MENDEL Apixaban 5 mg 05/01/22 22:00 Apixaban 2.5 Mg Tablet PO 05/31/22 21:59 BID MENDEL Bumetanide 2 mg 05/01/22 17:00 05/01/22 17:30 Bumetanide 1 Mg Tablet PO 05/31/22 16:59 Not Given BID DIURETIC MENDEL Bumetanide 2 mg 05/01/22 17:36 Bumetanide 1 Mg Tablet PO 05/31/22 17:35 BIDPRN PRN EDEMA Cholestyramine Resin 4 gm 05/01/22 17:04 Cholestyramine Light 4 Gm Packet PO 05/31/22 17:03 DAILY PRN PRN DIARRHEA Methylprednisolone Sodium 0 mg 05/01/22 18:00 05/01/22 17:41 Succinate 60 mg/ Sterile Water IV 05/31/22 17:59 60 mg 2 ml Q6HT MENDEL Administration Fluoxetine HCl 20 mg 05/01/22 10:00 05/01/22 17:30 Fluoxetine Hcl 20 Mg Cap PO 05/31/22 09:59 Not Given DAILY MENDEL Gabapentin 600 mg 05/01/22 22:00 Gabapentin 300 Mg Capsule PO 05/31/22 21:59 TID MENDEL Hydroxyzine HCl 25 mg 05/01/22 16:43 Hydroxyzine Hcl 25 Mg Tablet PO 05/31/22 16:42 TIDPRN PRN ITCHING Azithromycin 500 mg in 250 mls @ 250 mls/hr 05/02/22 10:00 Zithromax 500 Mg/ 250 Ml Nacl Premix IV 06/01/22 09:59 Q24H10 MENDEL Ceftriaxone Sodium/Dextrose 2 g in 50 mls @ 100 mls/hr 05/02/22 10:00 Rocephin 2 Gm-D5w 50ml Bag IV 05/05/22 09:59 Q24H10 MENDEL Levothyroxine Sodium 150 mcg 05/02/22 10:00 Levothyroxine Sodium 150 Mcg Tablet PO 06/01/22 09:59 DAILY MENDEL Levothyroxine Sodium 25 mcg 05/02/22 10:00 Levothyroxine Sodium 25 Mcg Tablet PO 06/01/22 09:59 DAILY MENDEL Metoprolol Tartrate 50 mg 05/01/22 22:00 Metoprolol Tartrate 50 Mg Tablet PO 05/31/22 21:59 BID MENDEL Morphine Sulfate 2 mg 05/01/22 15:39 Morphine Sulfate 2 Mg/Ml Inj IV 05/06/22 15:38 Q4H PRN PRN PAIN Olanzapine 20 mg 05/01/22 22:00 Olanzapine 5 Mg Tab PO 05/31/22 21:59 HS MENDEL Ondansetron HCl 4 mg 05/01/22 15:39 Ondansetron Hcl 4 Mg/2 Ml Vial IV 05/31/22 15:38 Q6H PRN PRN NAUSEA/VOMITING Pantoprazole Sodium 40 mg 05/01/22 16:30 05/01/22 17:30 Pantoprazole 40 Mg Vial IV 05/31/22 16:29 Not Given Q24H10 MENDEL Potassium Chloride 10 meq 05/01/22 17:38 Potassium Chloride Tab 10 Meq Tab PO 05/31/22 17:37 BIDPRN PRN WITH DIURETIC Promethazine HCl 25 mg 05/01/22 10:00 05/01/22 17:29 Promethazine Hcl 25 Mg Tablet PO 05/31/22 09:59 Not Given DAILY MENDEL Propranolol HCl 40 mg 05/02/22 10:00 Propranolol Hcl 20 Mg Tablet PO 06/01/22 09:59 DAILY MENDEL Rifaximin 550 mg 05/01/22 22:00 Rifaximin 200 Mg Tablet PO 05/31/22 21:59 BID MENDEL Fluticasone/Salmeterol 2 puff 05/01/22 19:00 Fluticasone/Salmeterol 115/21 - 120 Puff Common Canister IH 05/31/22 18:59 BIDRT MENDEL Tizanidine HCl 4 mg 05/01/22 16:43 Tizanidine Hcl 4 Mg Tablet PO 05/31/22 16:42 Q8HPRN PRN PAIN Discontinued Medications Generic Name Dose Route Start Last Admin Trade Name Freq PRN Reason Stop Dose Admin Albuterol/Ipratropium 3 ml 05/01/22 12:34 05/01/22 12:40 Ipratropium/Albuterol Sulfate 3 Ml Ampul.Neb IH 05/01/22 12:35 3 ml STAT ONE Administration Albuterol/Ipratropium Confirm 05/01/22 12:39 Ipratropium/Albuterol Sulfate 3 Ml Ampul.Neb Administered 05/01/22 12:40 Dose 3 ml IH .STK-MED ONE Methylprednisolone Sodium 0 mg 05/01/22 12:34 05/01/22 12:41 Succinate 125 mg/ Sterile IV 05/01/22 12:35 125 mg Water 2 ml STAT ONE Administration Fluoxetine HCl 20 mg 05/01/22 17:00 05/01/22 17:40 Fluoxetine Hcl 20 Mg Cap PO 05/31/22 16:59 Not Given DAILY MENDEL Furosemide 40 mg 05/01/22 14:54 05/01/22 14:55 Furosemide 40 Mg/4 Ml Vial IV 05/01/22 14:55 40 mg STAT ONE Administration Furosemide Confirm 05/01/22 14:53 Furosemide 40 Mg/4 Ml Vial Administered 05/01/22 14:54 Dose 40 mg .ROUTE .STK-MED ONE Azithromycin 500 mg in 250 mls @ 250 mls/hr 05/01/22 13:32 05/01/22 14:55 Zithromax 500 Mg/ 250 Ml Nacl Premix IV 05/01/22 14:31 250 ml/hr STAT STA 250 mls/hr Administration Ceftriaxone Sodium/Dextrose 2 g in 50 mls @ 100 mls/hr 05/01/22 13:32 05/01/22 14:46 Rocephin 2 Gm-D5w 50ml Bag IV 05/01/22 14:01 Infused STAT STA Infusion Ceftriaxone Sodium/Dextrose Confirm 05/01/22 14:15 Rocephin 2 Gm-D5w 50ml Bag Administered 05/01/22 14:16 Dose 2 g in 50 mls @ ud IV .STK-MED ONE Azithromycin Confirm 05/01/22 14:49 Zithromax 500 Mg/ 250 Ml Nacl Premix Administered 05/01/22 14:50 Dose 500 mg in 250 mls @ ud IV .STK-MED ONE Methylprednisolone Sodium Succinate Confirm 05/01/22 12:37 Methylprednis Sod Succ 125 Mg/2 Ml Vial Administered 05/01/22 12:38 Dose 125 mg .ROUTE .STK-MED ONE Promethazine HCl 25 mg 05/01/22 17:00 05/01/22 17:40 Promethazine Hcl 25 Mg Tablet PO 05/31/22 16:59 Not Given DAILY MENDEL Sterile Water Confirm 05/01/22 12:37 Water For Injection,Sterile 10 Ml Vial Administered 05/01/22 12:38 Dose 10 ml IJ .STK-MED ONE Intake & Output (Last 24 hours) 04/29/22 04/30/22 05/01/22 05/02/22 11:59 11:59 11:59 11:59 Intake Total 480 Output Total 1700 Balance -1220 Weight 203.5 kg Microbiology Results (Last 24 hours) 05/01/22 13:52 Urine, Void Urine Culture - Pending 05/01/22 12:55 Blood Blood Culture Gram Stain - Pending 05/01/22 12:55 Blood Blood Culture - Pending 05/01/22 13:00 Blood Blood Culture Gram Stain - Pending 05/01/22 13:00 Blood Blood Culture - Pending Laboratory Results (Last 24 hours) 05/01/22 05/01/22 05/01/22 15:00 13:52 12:56 WBC RBC Hgb Hct MCV MCH MCHC RDW Plt Count MPV Gran % Immature Gran % (Auto) Nucleat RBC Rel Count Eos # (Auto) Immature Gran # (Auto) Absolute Lymphs (auto) Absolute Monos (auto) Absolute Nucleated RBC Lymphocytes % Monocytes % Eosinophils % Basophils % Absolute Granulocytes Basophils # Sodium Potassium Chloride Carbon Dioxide Anion Gap BUN Creatinine Estimated GFR Glucose Lactic Acid Calcium Magnesium Total Bilirubin AST ALT Alkaline Phosphatase Troponin I NT-Pro-B Natriuret Pep Serum Total Protein Albumin Procalcitonin 0.119 H Urinalys Dipstick Clnc MAIN LAB Urine Color YELLOW Urine Appearance CLEAR Urine pH 7.5 Ur Specific Vass 1.015 POC Urine Protein Conf >=300 Urine Ketones NEGATIVE Urine Nitrite NEGATIVE Urine Bilirubin NEGATIVE Urine Urobilinogen 0.2 Urine Leukocytes NEGATIVE Urine WBC (Auto) 6-10 Urine RBC (Auto) 0-2 U Epithel Cells (Auto) NONE Urine Bacteria (Auto) NONE Urine RBC MODERATE Unidentified Crystals 2-5 Ur Culture Indicated? YES Urine Glucose NEGATIVE Influenza Type A Ag NEGATIVE Influenza Type B Ag NEGATIVE RSV (PCR) NEGATIVE SARS-CoV-2 (PCR) NEGATIVE Slides for Path Review 05/01/22 05/01/22 05/01/22 12:56 12:56 12:56 WBC 5.6 RBC 5.35 Hgb 16.6 Hct 51.3 H MCV 95.9 MCH 31.0 MCHC 32.4 RDW 15.9 H Plt Count 79 L MPV 10.8 Gran % 55.6 Immature Gran % (Auto) 0.7 H Nucleat RBC Rel Count 0.0 Eos # (Auto) 0.13 Immature Gran # (Auto) 0.04 H Absolute Lymphs (auto) 1.62 Absolute Monos (auto) 0.63 Absolute Nucleated RBC 0.00 Lymphocytes % 28.8 Monocytes % 11.2 Eosinophils % 2.3 Basophils % 1.4 Absolute Granulocytes 3.12 Basophils # 0.08 Sodium 140 Potassium 4.2 Chloride 106 Carbon Dioxide 30 Anion Gap 8.0 BUN 9 Creatinine 0.81 Estimated GFR > 60.0 Glucose 122 H Lactic Acid Calcium 8.3 L Magnesium 1.7 Total Bilirubin 1.00 AST 31 ALT 15 Alkaline Phosphatase 106 Troponin I < 0.012 NT-Pro-B Natriuret Pep 1040 H Serum Total Protein 7.1 Albumin 3.5 Procalcitonin Urinalys Dipstick Clnc Urine Color Urine Appearance Urine pH Ur Specific Vass POC Urine Protein Conf Urine Ketones Urine Nitrite Urine Bilirubin Urine Urobilinogen Urine Leukocytes Urine WBC (Auto) Urine RBC (Auto) U Epithel Cells (Auto) Urine Bacteria (Auto) Urine RBC Unidentified Crystals Ur Culture Indicated? Urine Glucose Influenza Type A Ag Influenza Type B Ag RSV (PCR) SARS-CoV-2 (PCR) Slides for Path Review YES 05/01/22 12:51 WBC RBC Hgb Hct MCV MCH MCHC RDW Plt Count MPV Gran % Immature Gran % (Auto) Nucleat RBC Rel Count Eos # (Auto) Immature Gran # (Auto) Absolute Lymphs (auto) Absolute Monos (auto) Absolute Nucleated RBC Lymphocytes % Monocytes % Eosinophils % Basophils % Absolute Granulocytes Basophils # Sodium Potassium Chloride Carbon Dioxide Anion Gap BUN Creatinine Estimated GFR Glucose Lactic Acid 1.3 Calcium Magnesium Total Bilirubin AST ALT Alkaline Phosphatase Troponin I NT-Pro-B Natriuret Pep Serum Total Protein Albumin Procalcitonin Urinalys Dipstick Clnc Urine Color Urine Appearance Urine pH Ur Specific Vass POC Urine Protein Conf Urine Ketones Urine Nitrite Urine Bilirubin Urine Urobilinogen Urine Leukocytes Urine WBC (Auto) Urine RBC (Auto) U Epithel Cells (Auto) Urine Bacteria (Auto) Urine RBC Unidentified Crystals Ur Culture Indicated? 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 STAT Care 05/01/22 12:51 Completed Code Status Order ROUTINE Care 05/01/22 15:39 Active EKG-ER Only STAT Care 05/01/22 12:51 Completed Fall Protocol Q1H Care 05/01/22 15:39 Active IV Care Q6H Care 05/01/22 15:39 Active IV Insertion STAT Care 05/01/22 12:51 Completed Oxygen-ED Only Nasal Cannula 4 lpm Care 05/01/22 12:51 Completed Mauro Brunildae, Apply ROUTINE Care 05/01/22 15:39 Active Telemetry q6h Care 05/01/22 15:36 Active Weight,Daily 0600 Care 05/01/22 15:39 Active Heart-Healthy Diet Diet 05/01/22 Dinner Active CHEST 1 VIEW (PORTABLE) Stat Exams 05/01/22 13:14 Completed BLOOD CULTURE Stat Lab 05/01/22 12:55 Received CBC W DIFF AM.LAB Lab 05/02/22 04:00 Ordered CBC W DIFF Stat Lab 05/01/22 12:56 Completed CMP AM.LAB Lab 05/02/22 04:00 Ordered CMP Stat Lab 05/01/22 12:56 Completed COVID/FLU/RSV Panel Stat Lab 05/01/22 15:00 Completed CULTURE,URINE Stat Lab 05/01/22 13:52 Received Lactic Acid Stat Lab 05/01/22 12:51 Completed MAGNESIUM Stat Lab 05/01/22 12:56 Completed NT PRO BNP Stat Lab 05/01/22 12:56 Completed PROCALCITONIN Stat Lab 05/01/22 12:56 Completed TROPONIN Q4H Lab 05/01/22 12:56 Completed TROPONIN Q4H Lab 05/01/22 17:50 Received TROPONIN Q4H Lab 05/01/22 21:00 Ordered UA W/RFX CULTURE Stat Lab 05/01/22 13:52 Completed ALPRAZolam 0.5 MG [xanAX 0.5 MG] Med 05/01/22 22:00 Active 0.5 mg PO TID Acetaminophen 325 mg [Tylenol 325 mg] Med 05/01/22 15:39 Active 650 mg PO Q4H PRN PRN Albuterol Common Canister [Ventolin Common Canister* Med 05/01/22 19:00 Active ] 4 puff IH QIDRT Albuterol/Ipratropium 3ml Neb* [DUONEB 0.5-3 MG/3 ml Med 05/01/22 12:39 Discontinued Neb] 3 ml IH .STK-MED ONE Albuterol/Ipratropium 3ml Neb* [DUONEB 0.5-3 MG/3 ml Med 05/01/22 19:00 Active Neb] 3 ml IH Q6HRT Albuterol/Ipratropium 3ml Neb* [DUONEB 0.5-3 MG/3 ml Med 05/01/22 12:34 Discontinued Neb] 3 ml IH STAT ONE Apixaban [Eliquis 2.5 mg Tablet] Med 05/01/22 22:00 Active 5 mg PO BID Azithromycin 500 mg/250 ml [Zithromax 500 MG/ 250 ML Med 05/02/22 10:00 Active NaCl Premix] 500 mg in 250 ml IV Q24H10 Azithromycin 500 mg/250 ml [Zithromax 500 MG/ 250 ML Med 05/01/22 13:32 Discontinued NaCl Premix] 500 mg in 250 ml IV STAT Azithromycin 500 mg/250 ml [Zithromax 500 MG/ 250 ML Med 05/01/22 14:49 Discontinued NaCl Premix] 500 mg in 250 ml IV UD Bumetanide 1 mg [Bumex 1 mg] Med 05/01/22 17:00 Active 2 mg PO BID DIURETIC Bumetanide 1 mg [Bumex 1 mg] Med 05/01/22 17:36 Active 2 mg PO BIDPRN PRN Ceftriaxone 2 GM/50 ML PREMIX* [ROCEPHIN 2 Gm-D5w 50ML Med 05/02/22 10:00 Active BAG] 2 g in 50 ml IV Q24H10 Ceftriaxone 2 GM/50 ML PREMIX* [ROCEPHIN 2 Gm-D5w 50ML Med 05/01/22 13:32 Discontinued BAG] 2 g in 50 ml IV STAT Ceftriaxone 2 GM/50 ML PREMIX* [ROCEPHIN 2 Gm-D5w 50ML Med 05/01/22 14:15 Discontinued BAG] 2 g in 50 ml IV UD Cholestyramine Light 4 gm [QUESTRAN Light 4 GM Med 05/01/22 17:04 Active Packet] 4 gm PO DAILY PRN PRN Fluoxetine HCl 20 mg [Prozac 20 MG] Med 05/01/22 10:00 Active 20 mg PO DAILY Fluoxetine HCl 20 mg [Prozac 20 MG] Med 05/01/22 17:00 Discontinued 20 mg PO DAILY Fluticasone/Salmeterol 115/21 [Advair Hfa 115/21 Common Med 05/01/22 19:00 Active canister*] 2 puff IH BIDRT Furosemide 40 mg/4 ml [Lasix 40 MG/4 ML] Med 05/01/22 14:53 Discontinued 40 mg .ROUTE .STK-MED ONE Furosemide 40 mg/4 ml [Lasix 40 MG/4 ML] Med 05/01/22 14:54 Discontinued 40 mg IV STAT ONE Gabapentin [Neurontin ] Med 05/01/22 22:00 Active 600 mg PO TID Hydroxyzine HCl 25 mg [Atarax 25 mg] Med 05/01/22 16:43 Active 25 mg PO TIDPRN PRN Levothyroxine Sodium 150 Mcg [Synthroid 150 Mcg] Med 05/02/22 10:00 Active 150 mcg PO DAILY Levothyroxine Sodium 25 Mcg [Synthroid 25 Mcg] Med 05/02/22 10:00 Active 25 mcg PO DAILY Methylprednis Sod Succ 125 mg* [solu-MEDROL] Med 05/01/22 12:37 Discontinued 125 mg .ROUTE .STK-MED ONE Methylprednis Sod Succ 125 mg* [solu-MEDROL] 125 mg Med 05/01/22 12:34 Discontinued Water For Injection,Sterile [Sterile H2O 10 ml] 2 ml IV STAT Methylprednis Sod Succ 125 mg* [solu-MEDROL] 60 mg Med 05/01/22 18:00 Active Water For Injection,Sterile [Sterile H2O 10 ml] 2 ml IV Q6HT Metoprolol Tartrate 50 mg [Lopressor 50 MG] Med 05/01/22 22:00 Active 50 mg PO BID Morphine Sulfate 2 mg Inj Med 05/01/22 15:39 Active 2 mg IV Q4H PRN PRN Olanzapine 5 mg [zyPREXA 5MG TABLET] Med 05/01/22 22:00 Active 20 mg PO HS Ondansetron HCl 4 mg/2 ml [Zofran 4 MG/2 ML VIAL] Med 05/01/22 15:39 Active 4 mg IV Q6H PRN PRN Pantoprazole 40 mg [Protonix 40 mg IV] Med 05/01/22 16:30 Active 40 mg IV Q24H10 Potassium Chloride Tab* [Klor Con] Med 05/01/22 17:38 Active 10 meq PO BIDPRN PRN Promethazine HCl 25 mg [Phenergan 25 mg] Med 05/01/22 10:00 Active 25 mg PO DAILY Promethazine HCl 25 mg [Phenergan 25 mg] Med 05/01/22 17:00 Discontinued 25 mg PO DAILY Propranolol HCl [Inderal ] Med 05/02/22 10:00 Active 40 mg PO DAILY Rifaximin 200 MG [Xifaxan 200 MG] Med 05/01/22 22:00 Active 550 mg PO BID Tizanidine HCl 4 mg [Zanaflex 4 MG] Med 05/01/22 16:43 Active 4 mg PO Q8HPRN PRN Water For Injection,Sterile [Sterile H2O 10 ml] Med 05/01/22 12:37 Discontinued 10 ml IJ .STK-MED ONE Oxygen Nasal Cannula 1 lpm RT 05/01/22 15:59 Active Pulse Oximetry .continuos RT 05/01/22 16:00 Active Respiratory Therapy Assessment DAILY RT 05/01/22 12:43 Completed Respiratory Therapy Assessment DAILY RT 05/01/22 15:58 Active Transfer Order Routine Transfer 05/01/22 Completed Code(s): J96.90 - RESPIRATORY FAILURE, UNSP, UNSP W HYPOXIA OR HYPERCAPNIA (2) Pneumonia Current Visit: Yes Status: Acute Qualifiers: Pneumonia type: due to Pneumococcus Laterality: bilateral Lung location: lower lobe of lung Qualified Code(s): J13 - Pneumonia due to Streptococcus pneumoniae Code(s): J18.9 - PNEUMONIA, UNSPECIFIED ORGANISM (3) Atrial fibrillation Current Visit: Yes Status: Chronic Qualifiers: Atrial fibrillation type: paroxysmal Qualified Code(s): I48.0 - Paroxysmal atrial fibrillation Code(s): I48.91 - UNSPECIFIED ATRIAL FIBRILLATION
[2022-05-01] MEDS ORDERED: MEDICATION INTERVENTION MC SCH (18:30)
[2022-05-01] MEDS ORDERED: DUONEB 0.5-3 MG/3 ml Neb IH SCH (19:00)
[2022-05-01] MEDS: Advair Hfa 115/21 Common canister IH SCH (19:10)
[2022-05-01] MEDS: VENTOLIN COMMON CANISTER IH SCH (19:10)
[2022-05-01] MEDS: NEURONTIN PO SCH (21:43)
[2022-05-01] MEDS: Lopressor 50 MG PO SCH (21:43)
[2022-05-01] MEDS: ELIQUIS 2.5 MG TABLET PO SCH (21:43)
[2022-05-01] MEDS: xanAX 0.5 MG PO SCH (21:43)
[2022-05-01] MEDS ORDERED: NON-FORMULARY ITEM (Rifaximin [Xifaxan] 550 MG Tablet) PO SCH (22:00)
[2022-05-01] MEDS ORDERED: zyPREXA 5MG TABLET PO SCH (22:00)
[2022-05-01] MEDS ORDERED: Xifaxan 200 MG PO SCH (22:00)
[2022-05-01] MEDS ORDERED: NON-FORMULARY ITEM (Apixaban [Eliquis] 5 MG Tablet) PO SCH (22:00)
[2022-05-01] MEDS ORDERED: OLANZAPINE 20 MG PO SCH (22:00)
[2022-05-02] MEDS: solu-MEDROL 60 MG, Sterile H2O 10 ml 2 ML IV SCH ×4 (05:46→13:01)
[2022-05-02 06:29] LABS: Absolute Neutrophil Ct (ANC) 4.47 x10^3/uL (1.4-6.9); Basophil (Absolute #) 0.01 x10^3/uL (0-0.4); Eosinophil (Absolute #) 0 x10^3/uL (0-0.5); Hematocrit 51.3 % (42-50); Hemoglobin 16.7 g/dL (12.5-18.0); Lymphocyte (Absolute #) 0.63 x10^3/uL (1.0-4.6); Lymphocytes % 11.9 % (24.0-44.0); Mean Cell Volume 95.5 fL (78-100); Mean Corpuscular Hemoglobin 31.1 pg (26-32); Mean Corpuscular Hgb Concent. 32.6 g/dL (32-36); Mean Platelet Volume 11.8 fL (7.5-11.0); Monocyte (Absolute #) 0.17 x10^3/uL (0.0-1.3); Monocytes % 3.2 % (0.0-12.0); Neutrophil % 84.1 % (36.0-66.0); Platelet Count 62 x10^3/uL (150-450); Red Blood Count 5.37 x10^6/uL (4.1-5.6); Red Cell Distribution Width 15.8 % (11.5-14.0); White Blood Count 5.3 x10^3/uL (4.0-10.5)
[2022-05-02 06:47] LABS: ALBUMIN 3.3 g/dL (3.5-5.0); ALKALINE PHOSPHATASE 107 U/L (38-126); ANION GAP 7.5 MEQ/L (5-15); BLOOD UREA NITROGEN 7 mg/dL (9-20); CHLORIDE 106 mmol/L (98-107); Calcium 8.3 mg/dL (8.4-10.2); Carbon Dioxide 30 mmol/L (22-30); Creatinine 1 0.68 mg/dL (0.66-1.25); EST GLOMERULAR FILTRATION RATE > 60.0 ML/MIN; Glucose 238 mg/dL (74-106); Potassium 4.1 mmol/L (3.5-5.1); SGOT/AST 24 U/L (17-59); SGPT/ALT 16 U/L (0-50); SODIUM 140 mmol/L (137-145); Total Protein 6.9 g/dL (6.3-8.2)
[2022-05-02] MEDS: VENTOLIN COMMON CANISTER IH SCH ×2 (07:09→11:18)
[2022-05-02] MEDS ORDERED: PROVENTIL 2.5 MG/3 ML NEB IH ONE (07:09)
[2022-05-02] MEDS: Advair Hfa 115/21 Common canister IH SCH (07:10)
[2022-05-02] MEDS ORDERED: Inderal PO SCH (10:00)
[2022-05-02] MEDS ORDERED: SYNTHROID 25 MCG PO SCH (10:00)
[2022-05-02] MEDS ORDERED: ROCEPHIN 2 Gm-D5w 50ML BAG** 2 G/50 ML IVPB IV SCH (10:00)
[2022-05-02] MEDS ORDERED: LEVOTHYROXINE SODIUM 200 MCG PO SCH (10:00)
[2022-05-02] MEDS ORDERED: SYNTHROID 150 MCG PO SCH (10:00)
[2022-05-02] MEDS ORDERED: Zithromax 500 MG/ 250 ML NaCl Premix 500 MG/250 ML IVPB IV SCH (10:00)
[2022-05-02] MEDS ORDERED: PROPRANOLOL HCL 40 MG PO SCH (10:00)
[2022-05-02] MEDS: Prozac 20 MG PO SCH (10:06)
[2022-05-02] MEDS: NEURONTIN PO SCH (10:06)
[2022-05-02] MEDS: ELIQUIS 2.5 MG TABLET PO SCH (10:06)
[2022-05-02] MEDS: xanAX 0.5 MG PO SCH (10:06)
[2022-05-02] MEDS: BUMEX 1 MG PO SCH (10:06)
[2022-05-02] MEDS: Lopressor 50 MG PO SCH (10:06)
[2022-05-02] MEDS: PHENERGAN 25 MG PO SCH (10:07)
[2022-05-02] MEDS: PROTONIX 40 MG IV IV SCH (10:07)
[2022-05-02 12:09] VITALS: BP 130/90; PULSE 101; O2SAT 90
--- NOTE | 2022-05-02 13:14 | PCM.DS ---
Discharge Summary Date of Admission: 05/01/22 15:36 Admitting Physician: KIRA ELKINS Primary Care Provider: KETAN ECHEVARRIA Allergies Allergies nitrofurantoin [From Macrobid] Allergy (Verified 05/01/22 15:55) Rash adhesive tape Adverse Reaction (Verified 05/01/22 15:55) Hospital Summary - Hospital Course Hospital Course: Chief Complaint Diagnosis shortness of breath and fever for 2-3 days Allergies Allergy/AdvReac Type Severity Reaction Status Date / Time nitrofurantoin Allergy Rash Verified 05/01/22 15:55 [From Macrobid] adhesive tape AdvReac Verified 05/01/22 15:55 Vital Signs (Last 24 hours) Temp Pulse Resp BP Pulse Ox 05/02/22 12:08 97.3 F 101 H 18 130/90 90 L 05/02/22 11:20 108 H 18 93 L 05/02/22 07:52 96.9 F 98 H 20 129/78 91 L 05/02/22 07:11 105 H 20 91 L 05/02/22 05:45 97.1 F 96 H 20 118/79 93 L 05/02/22 00:00 98.9 F 89 20 105/66 90 L 05/01/22 22:40 94 L 05/01/22 20:00 96.6 F 103 H 20 163/11 95 05/01/22 19:10 88 20 90 L 05/01/22 16:52 100 H 18 91 L 05/01/22 15:57 97.1 F 87 21 137/83 90 L 05/01/22 14:29 98 H 17 135/109 94 L Home Medications Medication Instructions Recorded Confirmed Last Taken Type Gabapentin 600 mg PO TID 05/01/22 05/01/22 05/01/22 09:00 History Hydroxyzine HCl 25 mg [Atarax 25 mg PO TID PRN 05/01/22 05/01/22 Unknown History 25 mg] Metoprolol Tartrate 50 mg 50 mg PO BID 05/01/22 05/01/22 05/01/22 09:00 History [Lopressor 50 MG] Tizanidine HCl 4 mg [Zanaflex 4 4 mg PO Q8H PRN 05/01/22 05/01/22 04/30/22 21:00 History MG] Levofloxacin [Levofloxacin 500 500 mg PO DAILY #7 tablet 05/02/22 Unknown Rx MG Tablet] Methylprednisolone Packet 4 mg PO DAILY #1 packet 05/02/22 Unknown Rx [Medrol Dosepack] Current Medications Discontinued Medications Generic Name Dose Route Start Last Admin Trade Name Freq PRN Reason Stop Dose Admin Acetaminophen 650 mg 05/01/22 15:39 Acetaminophen 325 Mg Tablet PO 05/31/22 15:38 Q4H PRN PRN PAIN AND/OR FEVER Albuterol Sulfate 4 puff 05/01/22 19:00 05/02/22 11:18 Albuterol Common Canister Inhaler IH 05/31/22 18:59 4 puff QIDRT MENDEL Administration Albuterol Sulfate Confirm 05/02/22 07:09 Albuterol Sulfate 2.5 Mg/3 Ml Neb Administered 05/02/22 07:10 Dose 2.5 mg IH .STK-MED ONE Albuterol/Ipratropium 3 ml 05/01/22 12:34 05/01/22 12:40 Ipratropium/Albuterol Sulfate 3 Ml Ampul.Neb IH 05/01/22 12:35 3 ml STAT ONE Administration Albuterol/Ipratropium Confirm 05/01/22 12:39 Ipratropium/Albuterol Sulfate 3 Ml Ampul.Neb Administered 05/01/22 12:40 Dose 3 ml IH .STK-MED ONE Alprazolam 0.5 mg 05/01/22 22:00 05/02/22 10:06 Alprazolam 0.5 Mg Tablet PO 05/31/22 21:59 Not Given TID MENDEL Apixaban 5 mg 05/01/22 22:00 05/02/22 10:06 Apixaban 2.5 Mg Tablet PO 05/31/22 21:59 5 mg BID MENDEL Administration Bumetanide 2 mg 05/01/22 17:00 05/02/22 10:06 Bumetanide 1 Mg Tablet PO 05/31/22 16:59 Not Given BID DIURETIC MENDEL Bumetanide 2 mg 05/01/22 17:36 Bumetanide 1 Mg Tablet PO 05/31/22 17:35 BIDPRN PRN EDEMA Cholestyramine Resin 4 gm 05/01/22 17:04 Cholestyramine Light 4 Gm Packet PO 05/31/22 17:03 DAILY PRN PRN DIARRHEA Methylprednisolone Sodium 0 mg 05/01/22 12:34 05/01/22 12:41 Succinate 125 mg/ Sterile IV 05/01/22 12:35 125 mg Water 2 ml STAT ONE Administration Methylprednisolone Sodium 0 mg 05/01/22 18:00 05/02/22 13:01 Succinate 60 mg/ Sterile Water IV 05/31/22 17:59 Not Given 2 ml Q6HT MENDEL Fluoxetine HCl 20 mg 05/01/22 17:00 05/01/22 17:40 Fluoxetine Hcl 20 Mg Cap PO 05/31/22 16:59 Not Given DAILY MENDEL Fluoxetine HCl 20 mg 05/01/22 10:00 05/02/22 10:06 Fluoxetine Hcl 20 Mg Cap PO 05/31/22 09:59 20 mg DAILY MENDEL Administration Furosemide 40 mg 05/01/22 14:54 05/01/22 14:55 Furosemide 40 Mg/4 Ml Vial IV 05/01/22 14:55 40 mg STAT ONE Administration Furosemide Confirm 05/01/22 14:53 Furosemide 40 Mg/4 Ml Vial Administered 05/01/22 14:54 Dose 40 mg .ROUTE .STK-MED ONE Gabapentin 600 mg 05/01/22 22:00 05/02/22 10:06 Gabapentin 300 Mg Capsule PO 05/31/22 21:59 600 mg TID MENDEL Administration Hydroxyzine HCl 25 mg 05/01/22 16:43 Hydroxyzine Hcl 25 Mg Tablet PO 05/31/22 16:42 TIDPRN PRN ITCHING Azithromycin 500 mg in 250 mls @ 250 mls/hr 05/01/22 13:32 05/01/22 14:55 Zithromax 500 Mg/ 250 Ml Nacl Premix IV 05/01/22 14:31 250 ml/hr STAT STA 250 mls/hr Administration Ceftriaxone Sodium/Dextrose 2 g in 50 mls @ 100 mls/hr 05/01/22 13:32 05/01/22 14:46 Rocephin 2 Gm-D5w 50ml Bag IV 05/01/22 14:01 Infused STAT STA Infusion Ceftriaxone Sodium/Dextrose Confirm 05/01/22 14:15 Rocephin 2 Gm-D5w 50ml Bag Administered 05/01/22 14:16 Dose 2 g in 50 mls @ ud IV .STK-MED ONE Azithromycin Confirm 05/01/22 14:49 Zithromax 500 Mg/ 250 Ml Nacl Premix Administered 05/01/22 14:50 Dose 500 mg in 250 mls @ ud IV .STK-MED ONE Azithromycin 500 mg in 250 mls @ 250 mls/hr 05/02/22 10:00 05/02/22 10:13 Zithromax 500 Mg/ 250 Ml Nacl Premix IV 06/01/22 09:59 Not Given Q24H10 MENDEL Ceftriaxone Sodium/Dextrose 2 g in 50 mls @ 100 mls/hr 05/02/22 10:00 05/02/22 10:12 Rocephin 2 Gm-D5w 50ml Bag IV 05/05/22 09:59 Not Given Q24H10 MENDEL Levothyroxine Sodium 150 mcg 05/02/22 10:00 05/02/22 10:07 Levothyroxine Sodium 150 Mcg Tablet PO 06/01/22 09:59 150 mcg DAILY MENDEL Administration Levothyroxine Sodium 25 mcg 05/02/22 10:00 05/02/22 10:06 Levothyroxine Sodium 25 Mcg Tablet PO 06/01/22 09:59 25 mcg DAILY MENDEL Administration Methylprednisolone Sodium Succinate Confirm 05/01/22 12:37 Methylprednis Sod Succ 125 Mg/2 Ml Vial Administered 05/01/22 12:38 Dose 125 mg .ROUTE .STK-MED ONE Metoprolol Tartrate 50 mg 05/01/22 22:00 05/02/22 10:06 Metoprolol Tartrate 50 Mg Tablet PO 05/31/22 21:59 50 mg BID MENDEL Administration Miscellaneous Information 1 each 05/01/22 18:30 Medication Intervention 1 Each Each 05/31/22 18:29 .RN TO CHECK MENDEL Morphine Sulfate 2 mg 05/01/22 15:39 Morphine Sulfate 2 Mg/Ml Inj IV 05/06/22 15:38 Q4H PRN PRN PAIN Olanzapine 20 mg 05/01/22 22:00 05/01/22 21:43 Olanzapine 5 Mg Tab PO 05/31/22 21:59 20 mg HS MENDEL Administration Ondansetron HCl 4 mg 05/01/22 15:39 Ondansetron Hcl 4 Mg/2 Ml Vial IV 05/31/22 15:38 Q6H PRN PRN NAUSEA/VOMITING Pantoprazole Sodium 40 mg 05/01/22 16:30 05/02/22 10:07 Pantoprazole 40 Mg Vial IV 05/31/22 16:29 Not Given Q24H10 MENDEL Potassium Chloride 10 meq 05/01/22 17:38 Potassium Chloride Tab 10 Meq Tab PO 05/31/22 17:37 BIDPRN PRN WITH DIURETIC Promethazine HCl 25 mg 05/01/22 17:00 05/01/22 17:40 Promethazine Hcl 25 Mg Tablet PO 05/31/22 16:59 Not Given DAILY MENDEL Promethazine HCl 25 mg 05/01/22 10:00 05/02/22 10:07 Promethazine Hcl 25 Mg Tablet PO 05/31/22 09:59 Not Given DAILY MENDEL Propranolol HCl 40 mg 05/02/22 10:00 05/02/22 10:06 Propranolol Hcl 20 Mg Tablet PO 06/01/22 09:59 40 mg DAILY MENDEL Administration Rifaximin 550 mg 05/01/22 22:00 Rifaximin 200 Mg Tablet PO 05/31/22 21:59 BID MENDEL Fluticasone/Salmeterol 2 puff 05/01/22 19:00 05/02/22 07:10 Fluticasone/Salmeterol 115/21 - 120 Puff Common Canister IH 05/31/22 18:59 2 puff BIDRT MENDEL Administration Sterile Water Confirm 05/01/22 12:37 Water For Injection,Sterile 10 Ml Vial Administered 05/01/22 12:38 Dose 10 ml IJ .STK-MED ONE Tizanidine HCl 4 mg 05/01/22 16:43 Tizanidine Hcl 4 Mg Tablet PO 05/31/22 16:42 Q8HPRN PRN PAIN Intake & Output (Last 24 hours) 04/30/22 05/01/22 05/02/22 05/03/22 11:59 11:59 11:59 11:59 Intake Total 720 240 Output Total 4100 Balance -3380 240 Weight 202.5 kg Microbiology Results (Last 24 hours) 05/01/22 13:52 Urine, Void Urine Culture - Pending 05/01/22 12:55 Blood Blood Culture Gram Stain - Pending 05/01/22 12:55 Blood Blood Culture - Pending 05/01/22 13:00 Blood Blood Culture Gram Stain - Pending 05/01/22 13:00 Blood Blood Culture - Pending Laboratory Results (Last 24 hours) 05/02/22 05/02/22 05/01/22 06:02 06:02 21:45 WBC 5.3 RBC 5.37 Hgb 16.7 Hct 51.3 H MCV 95.5 MCH 31.1 MCHC 32.6 RDW 15.8 H Plt Count 62 L MPV 11.8 H Gran % 84.1 H Immature Gran % (Auto) 0.6 H Nucleat RBC Rel Count 0.0 Eos # (Auto) 0 Immature Gran # (Auto) 0.03 Absolute Lymphs (auto) 0.63 L Absolute Monos (auto) 0.17 Absolute Nucleated RBC 0.00 Lymphocytes % 11.9 L Monocytes % 3.2 Eosinophils % 0.0 Basophils % 0.2 Absolute Granulocytes 4.47 Basophils # 0.01 Sodium 140 Potassium 4.1 Chloride 106 Carbon Dioxide 30 Anion Gap 7.5 BUN 7 L Creatinine 0.68 Estimated GFR > 60.0 Glucose 238 H Calcium 8.3 L Magnesium Total Bilirubin 0.60 AST 24 ALT 16 Alkaline Phosphatase 107 Troponin I < 0.012 NT-Pro-B Natriuret Pep Serum Total Protein 6.9 Albumin 3.3 L Procalcitonin Urinalys Dipstick Clnc Urine Color Urine Appearance Urine pH Ur Specific [place] POC Urine Protein Conf Urine Ketones Urine Nitrite Urine Bilirubin Urine Urobilinogen Urine Leukocytes Urine WBC (Auto) Urine RBC (Auto) U Epithel Cells (Auto) Urine Bacteria (Auto) Urine RBC Unidentified Crystals Ur Culture Indicated? Urine Glucose Influenza Type A Ag Influenza Type B Ag RSV (PCR) SARS-CoV-2 (PCR) Slides for Path Review 05/01/22 05/01/22 05/01/22 17:50 15:00 13:52 WBC RBC Hgb Hct MCV MCH MCHC RDW Plt Count MPV Gran % Immature Gran % (Auto) Nucleat RBC Rel Count Eos # (Auto) Immature Gran # (Auto) Absolute Lymphs (auto) Absolute Monos (auto) Absolute Nucleated RBC Lymphocytes % Monocytes % Eosinophils % Basophils % Absolute Granulocytes Basophils # Sodium Potassium Chloride Carbon Dioxide Anion Gap BUN Creatinine Estimated GFR Glucose Calcium Magnesium Total Bilirubin AST ALT Alkaline Phosphatase Troponin I < 0.012 NT-Pro-B Natriuret Pep Serum Total Protein Albumin Procalcitonin Urinalys Dipstick Clnc MAIN LAB Urine Color YELLOW Urine Appearance CLEAR Urine pH 7.5 Ur Specific [place] 1.015 POC Urine Protein Conf >=300 Urine Ketones NEGATIVE Urine Nitrite NEGATIVE Urine Bilirubin NEGATIVE Urine Urobilinogen 0.2 Urine Leukocytes NEGATIVE Urine WBC (Auto) 6-10 Urine RBC (Auto) 0-2 U Epithel Cells (Auto) NONE Urine Bacteria (Auto) NONE Urine RBC MODERATE Unidentified Crystals 2-5 Ur Culture Indicated? YES Urine Glucose NEGATIVE Influenza Type A Ag NEGATIVE Influenza Type B Ag NEGATIVE RSV (PCR) NEGATIVE SARS-CoV-2 (PCR) NEGATIVE Slides for Path Review 05/01/22 05/01/22 05/01/22 12:56 12:56 12:56 WBC RBC Hgb Hct MCV MCH MCHC RDW Plt Count MPV Gran % Immature Gran % (Auto) Nucleat RBC Rel Count Eos # (Auto) Immature Gran # (Auto) Absolute Lymphs (auto) Absolute Monos (auto) Absolute Nucleated RBC Lymphocytes % Monocytes % Eosinophils % Basophils % Absolute Granulocytes Basophils # Sodium 140 Potassium 4.2 Chloride 106 Carbon Dioxide 30 Anion Gap 8.0 BUN 9 Creatinine 0.81 Estimated GFR > 60.0 Glucose 122 H Calcium 8.3 L Magnesium 1.7 Total Bilirubin 1.00 AST 31 ALT 15 Alkaline Phosphatase 106 Troponin I < 0.012 NT-Pro-B Natriuret Pep 1040 H Serum Total Protein 7.1 Albumin 3.5 Procalcitonin 0.119 H Urinalys Dipstick Clnc Urine Color Urine Appearance Urine pH Ur Specific [place] POC Urine Protein Conf Urine Ketones Urine Nitrite Urine Bilirubin Urine Urobilinogen Urine Leukocytes Urine WBC (Auto) Urine RBC (Auto) U Epithel Cells (Auto) Urine Bacteria (Auto) Urine RBC Unidentified Crystals Ur Culture Indicated? Urine Glucose Influenza Type A Ag Influenza Type B Ag RSV (PCR) SARS-CoV-2 (PCR) Slides for Path Review 05/01/22 12:56 WBC RBC Hgb Hct MCV MCH MCHC RDW Plt Count MPV Gran % Immature Gran % (Auto) Nucleat RBC Rel Count Eos # (Auto) Immature Gran # (Auto) Absolute Lymphs (auto) Absolute Monos (auto) Absolute Nucleated RBC Lymphocytes % Monocytes % Eosinophils % Basophils % Absolute Granulocytes Basophils # Sodium Potassium Chloride Carbon Dioxide Anion Gap BUN Creatinine Estimated GFR Glucose Calcium Magnesium Total Bilirubin AST ALT Alkaline Phosphatase Troponin I NT-Pro-B Natriuret Pep Serum Total Protein Albumin Procalcitonin Urinalys Dipstick Clnc Urine Color Urine Appearance Urine pH Ur Specific [place] POC Urine Protein Conf Urine Ketones Urine Nitrite Urine Bilirubin Urine Urobilinogen Urine Leukocytes Urine WBC (Auto) Urine RBC (Auto) U Epithel Cells (Auto) Urine Bacteria (Auto) Urine RBC Unidentified Crystals Ur Culture Indicated? Urine Glucose Influenza Type A Ag Influenza Type B Ag RSV (PCR) SARS-CoV-2 (PCR) Slides for Path Review YES Orders (Last 24 hours) Category Date Time Status Bedrest ROUTINE Activity 05/01/22 15:39 Completed Up With Assistance ROUTINE Activity 05/01/22 15:39 Completed Admit as Inpatient ROUTINE Care 05/01/22 15:39 Completed Sole Stitcher Hand STAT Care 05/01/22 12:51 Completed Code Status Order ROUTINE Care 05/01/22 15:39 Completed EKG-ER Only STAT Care 05/01/22 12:51 Completed Fall Protocol Q1H Care 05/01/22 15:39 Completed IV Care Q6H Care 05/01/22 15:39 Completed IV Insertion STAT Care 05/01/22 12:51 Completed Oxygen-ED Only Nasal Cannula 4 lpm Care 05/01/22 12:51 Completed Mauro Hose, Apply ROUTINE Care 05/01/22 15:39 Completed Telemetry q6h Care 05/01/22 15:36 Completed Weight,Daily 0600 Care 05/01/22 15:39 Completed Heart-Healthy Diet Diet 05/01/22 Dinner Completed Discharge Routine Discharge 05/02/22 Ordered CHEST 1 VIEW (PORTABLE) Stat Exams 05/01/22 13:14 Completed BLOOD CULTURE Stat Lab 05/01/22 12:55 Received CBC W DIFF AM.LAB Lab 05/02/22 06:02 Completed CBC W DIFF Stat Lab 05/01/22 12:56 Completed CMP AM.LAB Lab 05/02/22 06:02 Completed CMP Stat Lab 05/01/22 12:56 Completed COVID/FLU/RSV Panel Stat Lab 05/01/22 15:00 Completed CULTURE,URINE Stat Lab 05/01/22 13:52 Received Lactic Acid Stat Lab 05/01/22 12:51 Completed MAGNESIUM Stat Lab 05/01/22 12:56 Completed NT PRO BNP Stat Lab 05/01/22 12:56 Completed PROCALCITONIN Stat Lab 05/01/22 12:56 Completed TROPONIN Q4H Lab 05/01/22 12:56 Completed TROPONIN Q4H Lab 05/01/22 17:50 Completed TROPONIN Q4H Lab 05/01/22 21:45 Completed UA W/RFX CULTURE Stat Lab 05/01/22 13:52 Completed ALPRAZolam 0.5 MG [xanAX 0.5 MG] Med 05/01/22 22:00 Discontinued 0.5 mg PO TID Acetaminophen 325 mg [Tylenol 325 mg] Med 05/01/22 15:39 Discontinued 650 mg PO Q4H PRN PRN Albuterol 2.5 mg/3 ml Neb [Proventil 2.5 mg/3 ml Neb Med 05/02/22 07:09 Discontinued ] 2.5 mg IH .STK-MED ONE Albuterol Common Canister [Ventolin Common Canister* Med 05/01/22 19:00 Discontinued ] 4 puff IH QIDRT Albuterol/Ipratropium 3ml Neb* [DUONEB 0.5-3 MG/3 ml Med 05/01/22 12:39 Di scontinued Neb] 3 ml IH .STK-MED ONE Albuterol/Ipratropium 3ml Neb* [DUONEB 0.5-3 MG/3 ml Med 05/01/22 12:34 Discontinued Neb] 3 ml IH STAT ONE Apixaban [Eliquis 2.5 mg Tablet] Med 05/01/22 22:00 Discontinued 5 mg PO BID Azithromycin 500 mg/250 ml [Zithromax 500 MG/ 250 ML Med 05/02/22 10:00 Discontinued NaCl Premix] 500 mg in 250 ml IV Q24H10 Azithromycin 500 mg/250 ml [Zithromax 500 MG/ 250 ML Med 05/01/22 13:32 Discontinued NaCl Premix] 500 mg in 250 ml IV STAT Azithromycin 500 mg/250 ml [Zithromax 500 MG/ 250 ML Med 05/01/22 14:49 Discontinued NaCl Premix] 500 mg in 250 ml IV UD Bumetanide 1 mg [Bumex 1 mg] Med 05/01/22 17:00 Discontinued 2 mg PO BID DIURETIC Bumetanide 1 mg [Bumex 1 mg] Med 05/01/22 17:36 Discontinued 2 mg PO BIDPRN PRN Ceftriaxone 2 GM/50 ML PREMIX* [ROCEPHIN 2 Gm-D5w 50ML Med 05/02/22 10:00 Discontinued BAG] 2 g in 50 ml IV Q24H10 Ceftriaxone 2 GM/50 ML PREMIX* [ROCEPHIN 2 Gm-D5w 50ML Med 05/01/22 13:32 Discontinued BAG] 2 g in 50 ml IV STAT Ceftriaxone 2 GM/50 ML PREMIX* [ROCEPHIN 2 Gm-D5w 50ML Med 05/01/22 14:15 Discontinued BAG] 2 g in 50 ml IV UD Cholestyramine Light 4 gm [QUESTRAN Light 4 GM Med 05/01/22 17:04 Discontinued Packet] 4 gm PO DAILY PRN PRN Fluoxetine HCl 20 mg [Prozac 20 MG] Med 05/01/22 17:00 Discontinued 20 mg PO DAILY Fluticasone/Salmeterol [Advair Hfa 115/21 Common Med 05/01/22 19:00 Discontinued canister*] 2 puff IH BIDRT Furosemide 40 mg/4 ml [Lasix 40 MG/4 ML] Med 05/01/22 14:53 Discontinued 40 mg .ROUTE .STK-MED ONE Furosemide 40 mg/4 ml [Lasix 40 MG/4 ML] Med 05/01/22 14:54 Discontinued 40 mg IV STAT ONE Gabapentin [Neurontin ] Med 05/01/22 22:00 Discontinued 600 mg PO TID Hydroxyzine HCl 25 mg [Atarax 25 mg] Med 05/01/22 16:43 Discontinued 25 mg PO TIDPRN PRN Levothyroxine Sodium 150 Mcg [Synthroid 150 Mcg] Med 05/02/22 10:00 Discontinued 150 mcg PO DAILY Levothyroxine Sodium 25 Mcg [Synthroid 25 Mcg] Med 05/02/22 10:00 Discontinued 25 mcg PO DAILY Medication Intervention Med 05/01/22 18:30 Discontinued 1 each MC .RN TO CHECK Methylprednis Sod Succ 125 mg* [solu-MEDROL] Med 05/01/22 12:37 Discontinued 125 mg .ROUTE .STK-MED ONE Methylprednis Sod Succ 125 mg* [solu-MEDROL] 125 mg Med 05/01/22 12:34 Discontinued Water For Injection,Sterile [Sterile H2O 10 ml] 2 ml IV STAT Methylprednis Sod Succ 125 mg* [solu-MEDROL] 60 mg Med 05/01/22 18:00 Discontinued Water For Injection,Sterile [Sterile H2O 10 ml] 2 ml IV Q6HT Metoprolol Tartrate 50 mg [Lopressor 50 MG] Med 05/01/22 22:00 Discontinued 50 mg PO BID Morphine Sulfate 2 mg Inj Med 05/01/22 15:39 Discontinued 2 mg IV Q4H PRN PRN Olanzapine 5 mg [zyPREXA 5MG TABLET] Med 05/01/22 22:00 Discontinued 20 mg PO HS Ondansetron HCl 4 mg/2 ml [Zofran 4 MG/2 ML VIAL] Med 05/01/22 15:39 Discontinued 4 mg IV Q6H PRN PRN Pantoprazole 40 mg [Protonix 40 mg IV] Med 05/01/22 16:30 Discontinued 40 mg IV Q24H10 Potassium Chloride Tab* [Klor Con] Med 05/01/22 17:38 Discontinued 10 meq PO BIDPRN PRN Promethazine HCl 25 mg [Phenergan 25 mg] Med 05/01/22 17:00 Discontinued 25 mg PO DAILY Propranolol HCl [Inderal ] Med 05/02/22 10:00 Discontinued 40 mg PO DAILY Rifaximin 200 MG [Xifaxan 200 MG] Med 05/01/22 22:00 Discontinued 550 mg PO BID Tizanidine HCl 4 mg [Zanaflex 4 MG] Med 05/01/22 16:43 Discontinued 4 mg PO Q8HPRN PRN Water For Injection,Sterile [Sterile H2O 10 ml] Med 05/01/22 12:37 Discontinued 10 ml IJ .STK-MED ONE Oxygen Nasal Cannula 1 lpm RT 05/01/22 15:59 Completed Pulse Oximetry .continuos RT 05/01/22 16:00 Completed Respiratory Therapy Assessment DAILY RT 05/01/22 12:43 Completed Respiratory Therapy Assessment DAILY RT 05/01/22 15:58 Completed - Vitals & Intake/Output Vital Signs: Vital Signs Temperature 97.3 F 05/02/22 12:08 Pulse Rate 101 H 05/02/22 12:08 Respiratory Rate 18 05/02/22 12:08 Blood Pressure 130/90 05/02/22 12:08 O2 Sat by Pulse Oximetry 90 L 05/02/22 12:08 Intake & Output: Intake & Output 04/30/22 05/01/22 05/02/22 05/03/22 11:59 11:59 11:59 11:59 Intake Total 720 240 Output Total 4100 Balance -3380 240 Weight 202.5 kg - Lab Result Diagrams: 05/02/22 06:02 05/02/22 06:02 Lab Results-Last 24 Hrs: Lab Results-Last 24 Hours 05/01/22 05/01/22 05/01/22 Range/Units 12:56 12:56 12:56 WBC (4.0-10.5) x10^3/uL RBC (4.1-5.6) x10^6/uL Hgb (12.5-18.0) g/dL Hct (42-50) % MCV (78-100) fL MCH (26-32) pg MCHC (32-36) g/dL RDW (11.5-14.0) % Plt Count (150-450) x10^3/uL MPV (7.5-11.0) fL Gran % (36.0-66.0) % Immature Gran % (Auto) (0.00-0.4) % Nucleat RBC Rel Count (0.00-0.1) % Eos # (Auto) (0-0.5) x10^3/uL Immature Gran # (Auto) (0.00-0.03) x10^3u/L Absolute Lymphs (auto) (1.0-4.6) x10^3/uL Absolute Monos (auto) (0.0-1.3) x10^3/uL Absolute Nucleated RBC (0.00-0.01) x10^3u/L Lymphocytes % (24.0-44.0) % Monocytes % (0.0-12.0) % Eosinophils % (0.00-5.0) % Basophils % (0.0-0.4) % Absolute Granulocytes (1.4-6.9) x10^3/uL Basophils # (0-0.4) x10^3/uL Sodium 140 (137-145) mmol/L Potassium 4.2 (3.5-5.1) mmol/L Chloride 106 (98-107) mmol/L Carbon Dioxide 30 (22-30) mmol/L Anion Gap 8.0 (5-15) MEQ/L BUN 9 (9-20) mg/dL Creatinine 0.81 (0.66-1.25) mg/dL Estimated GFR > 60.0 ML/MIN Glucose 122 H (74-106) mg/dL Calcium 8.3 L (8.4-10.2) mg/dL Magnesium 1.7 (1.6-2.3) mg/dL Total Bilirubin 1.00 (0.2-1.3) mg/dL AST 31 (17-59) U/L ALT 15 (0-50) U/L Alkaline Phosphatase 106 (38-126) U/L Troponin I < 0.012 (0.000-0.034) ng/mL NT-Pro-B Natriuret Pep 1040 H (0-900) pg/mL Serum Total Protein 7.1 (6.3-8.2) g/dL Albumin 3.5 (3.5-5.0) g/dL Procalcitonin (0.030-0.080) ng/mL Urinalys Dipstick Clnc Urine Color (YELLOW) Urine Appearance (CLEAR) Urine pH (5-6) Ur Specific [place] (1.005-1.025) POC Urine Protein Conf (Negative) Urine Ketones (NEGATIVE) Urine Nitrite (NEGATIVE) Urine Bilirubin (NEGATIVE) Urine Urobilinogen (0-1) mg/dL Urine Leukocytes (NEGATIVE) Urine WBC (Auto) (0-5) /HPF Urine RBC (Auto) (0-2) /HPF U Epithel Cells (Auto) (FEW) /HPF Urine Bacteria (Auto) (NEGATIVE) /HPF Urine RBC (0-5) Christopher/ul Unidentified Crystals (NEGATIVE) /HPF Ur Culture Indicated? Urine Glucose (NEGATIVE) mg/dL Influenza Type A Ag (NEGATIVE) Influenza Type B Ag (NEGATIVE) RSV (PCR) (Negative) SARS-CoV-2 (PCR) (NEGATIVE) Slides for Path Review YES 05/01/22 05/01/22 05/01/22 Range/Units 12:56 13:52 15:00 WBC (4.0-10.5) x10^3/uL RBC (4.1-5.6) x10^6/uL Hgb (12.5-18.0) g/dL Hct (42-50) % MCV (78-100) fL MCH (26-32) pg MCHC (32-36) g/dL RDW (11.5-14.0) % Plt Count (150-450) x10^3/uL MPV (7.5-11.0) fL Gran % (36.0-66.0) % Immature Gran % (Auto) (0.00-0.4) % Nucleat RBC Rel Count (0.00-0.1) % Eos # (Auto) (0-0.5) x10^3/uL Immature Gran # (Auto) (0.00-0.03) x10^3u/L Absolute Lymphs (auto) (1.0-4.6) x10^3/uL Absolute Monos (auto) (0.0-1.3) x10^3/uL Absolute Nucleated RBC (0.00-0.01) x10^3u/L Lymphocytes % (24.0-44.0) % Monocytes % (0.0-12.0) % Eosinophils % (0.00-5.0) % Basophils % (0.0-0.4) % Absolute Granulocytes (1.4-6.9) x10^3/uL Basophils # (0-0.4) x10^3/uL Sodium (137-145) mmol/L Potassium (3.5-5.1) mmol/L Chloride (98-107) mmol/L Carbon Dioxide (22-30) mmol/L Anion Gap (5-15) MEQ/L BUN (9-20) mg/dL Creatinine (0.66-1.25) mg/dL Estimated GFR ML/MIN Glucose (74-106) mg/dL Calcium (8.4-10.2) mg/dL Magnesium (1.6-2.3) mg/dL Total Bilirubin (0.2-1.3) mg/dL AST (17-59) U/L ALT (0-50) U/L Alkaline Phosphatase (38-126) U/L Troponin I (0.000-0.034) ng/mL NT-Pro-B Natriuret Pep (0-900) pg/mL Serum Total Protein (6.3-8.2) g/dL Albumin (3.5-5.0) g/dL Procalcitonin 0.119 H (0.030-0.080) ng/mL Urinalys Dipstick Clnc MAIN LAB Urine Color YELLOW (YELLOW) Urine Appearance CLEAR (CLEAR) Urine pH 7.5 (5-6) Ur Specific [place] 1.015 (1.005-1.025) POC Urine Protein Conf >=300 (Negative) Urine Ketones NEGATIVE (NEGATIVE) Urine Nitrite NEGATIVE (NEGATIVE) Urine Bilirubin NEGATIVE (NEGATIVE) Urine Urobilinogen 0.2 (0-1) mg/dL Urine Leukocytes NEGATIVE (NEGATIVE) Urine WBC (Auto) 6-10 (0-5) /HPF Urine RBC (Auto) 0-2 (0-2) /HPF U Epithel Cells (Auto) NONE (FEW) /HPF Urine Bacteria (Auto) NONE (NEGATIVE) /HPF Urine RBC MODERATE (0-5) Christopher/ul Unidentified Crystals 2-5 (NEGATIVE) /HPF Ur Culture Indicated? YES Urine Glucose NEGATIVE (NEGATIVE) mg/dL Influenza Type A Ag NEGATIVE (NEGATIVE) Influenza Type B Ag NEGATIVE (NEGATIVE) RSV (PCR) NEGATIVE (Negative) SARS-CoV-2 (PCR) NEGATIVE (NEGATIVE) Slides for Path Review 05/01/22 05/01/22 05/02/22 Range/Units 17:50 21:45 06:02 WBC 5.3 (4.0-10.5) x10^3/uL RBC 5.37 (4.1-5.6) x10^6/uL Hgb 16.7 (12.5-18.0) g/dL Hct 51.3 H (42-50) % MCV 95.5 (78-100) fL MCH 31.1 (26-32) pg MCHC 32.6 (32-36) g/dL RDW 15.8 H (11.5-14.0) % Plt Count 62 L (150-450) x10^3/uL MPV 11.8 H (7.5-11.0) fL Gran % 84.1 H (36.0-66.0) % Immature Gran % (Auto) 0.6 H (0.00-0.4) % Nucleat RBC Rel Count 0.0 (0.00-0.1) % Eos # (Auto) 0 (0-0.5) x10^3/uL Immature Gran # (Auto) 0.03 (0.00-0.03) x10^3u/L Absolute Lymphs (auto) 0.63 L (1.0-4.6) x10^3/uL Absolute Monos (auto) 0.17 (0.0-1.3) x10^3/uL Absolute Nucleated RBC 0.00 (0.00-0.01) x10^3u/L Lymphocytes % 11.9 L (24.0-44.0) % Monocytes % 3.2 (0.0-12.0) % Eosinophils % 0.0 (0.00-5.0) % Basophils % 0.2 (0.0-0.4) % Absolute Granulocytes 4.47 (1.4-6.9) x10^3/uL Basophils # 0.01 (0-0.4) x10^3/uL Sodium (137-145) mmol/L Potassium (3.5-5.1) mmol/L Chloride (98-107) mmol/L Carbon Dioxide (22-30) mmol/L Anion Gap (5-15) MEQ/L BUN (9-20) mg/dL Creatinine (0.66-1.25) mg/dL Estimated GFR ML/MIN Glucose (74-106) mg/dL Calcium (8.4-10.2) mg/dL Magnesium (1.6-2.3) mg/dL Total Bilirubin (0.2-1.3) mg/dL AST (17-59) U/L ALT (0-50) U/L Alkaline Phosphatase (38-126) U/L Troponin I < 0.012 < 0.012 (0.000-0.034) ng/mL NT-Pro-B Natriuret Pep (0-900) pg/mL Serum Total Protein (6.3-8.2) g/dL Albumin (3.5-5.0) g/dL Procalcitonin (0.030-0.080) ng/mL Urinalys Dipstick Clnc Urine Color (YELLOW) Urine Appearance (CLEAR) Urine pH (5-6) Ur Specific [place] (1.005-1.025) POC Urine Protein Conf (Negative) Urine Ketones (NEGATIVE) Urine Nitrite (NEGATIVE) Urine Bilirubin (NEGATIVE) Urine Urobilinogen (0-1) mg/dL Urine Leukocytes (NEGATIVE) Urine WBC (Auto) (0-5) /HPF Urine RBC (Auto) (0-2) /HPF U Epithel Cells (Auto) (FEW) /HPF Urine Bacteria (Auto) (NEGATIVE) /HPF Urine RBC (0-5) Christopher/ul Unidentified Crystals (NEGATIVE) /HPF Ur Culture Indicated? Urine Glucose (NEGATIVE) mg/dL Influenza Type A Ag (NEGATIVE) Influenza Type B Ag (NEGATIVE) RSV (PCR) (Negative) SARS-CoV-2 (PCR) (NEGATIVE) Slides for Path Review 05/02/22 Range/Units 06:02 WBC (4.0-10.5) x10^3/uL RBC (4.1-5.6) x10^6/uL Hgb (12.5-18.0) g/dL Hct (42-50) % MCV (78-100) fL MCH (26-32) pg MCHC (32-36) g/dL RDW (11.5-14.0) % Plt Count (150-450) x10^3/uL MPV (7.5-11.0) fL Gran % (36.0-66.0) % Immature Gran % (Auto) (0.00-0.4) % Nucleat RBC Rel Count (0.00-0.1) % Eos # (Auto) (0-0.5) x10^3/uL Immature Gran # (Auto) (0.00-0.03) x10^3u/L Absolute Lymphs (auto) (1.0-4.6) x10^3/uL Absolute Monos (auto) (0.0-1.3) x10^3/uL Absolute Nucleated RBC (0.00-0.01) x10^3u/L Lymphocytes % (24.0-44.0) % Monocytes % (0.0-12.0) % Eosinophils % (0.00-5.0) % Basophils % (0.0-0.4) % Absolute Granulocytes (1.4-6.9) x10^3/uL Basophils # (0-0.4) x10^3/uL Sodium 140 (137-145) mmol/L Potassium 4.1 (3.5-5.1) mmol/L Chloride 106 (98-107) mmol/L Carbon Dioxide 30 (22-30) mmol/L Anion Gap 7.5 (5-15) MEQ/L BUN 7 L (9-20) mg/dL Creatinine 0.68 (0.66-1.25) mg/dL Estimated GFR > 60.0 ML/MIN Glucose 238 H (74-106) mg/dL Calcium 8.3 L (8.4-10.2) mg/dL Magnesium (1.6-2.3) mg/dL Total Bilirubin 0.60 (0.2-1.3) mg/dL AST 24 (17-59) U/L ALT 16 (0-50) U/L Alkaline Phosphatase 107 (38-126) U/L Troponin I (0.000-0.034) ng/mL NT-Pro-B Natriuret Pep (0-900) pg/mL Serum Total Protein 6.9 (6.3-8.2) g/dL Albumin 3.3 L (3.5-5.0) g/dL Procalcitonin (0.030-0.080) ng/mL Urinalys Dipstick Clnc Urine Color (YELLOW) Urine Appearance (CLEAR) Urine pH (5-6) Ur Specific [place] (1.005-1.025) POC Urine Protein Conf (Negative) Urine Ketones (NEGATIVE) Urine Nitrite (NEGATIVE) Urine Bilirubin (NEGATIVE) Urine Urobilinogen (0-1) mg/dL Urine Leukocytes (NEGATIVE) Urine WBC (Auto) (0-5) /HPF Urine RBC (Auto) (0-2) /HPF U Epithel Cells (Auto) (FEW) /HPF Urine Bacteria (Auto) (NEGATIVE) /HPF Urine RBC (0-5) Christopher/ul Unidentified Crystals (NEGATIVE) /HPF Ur Culture Indicated? Urine Glucose (NEGATIVE) mg/dL Influenza Type A Ag (NEGATIVE) Influenza Type B Ag (NEGATIVE) RSV (PCR) (Negative) SARS-CoV-2 (PCR) (NEGATIVE) Slides for Path Review - Radiology Exams Ordered Rad Exams-Entire Visit: Radiology Procedures Category Date Time Status CHEST 1 VIEW (PORTABLE) Stat Exams 05/01/22 13:14 Completed - Procedures and Test Procedures and Tests throughout Hospitalization: Therapy Orders & Screens 05/01/22 12:43 Respiratory Therapy Assessment DAILY Comment: 05/01/22 15:58 Respiratory Therapy Assessment DAILY Comment: Diagnosis: Respiratory failure 05/01/22 15:59 Oxygen Nasal Cannula 1 lpm Comment: Diagnosis: Respiratory failure Discharge Exam General Appearance: no apparent distress, alert Neurologic Exam: alert, oriented x 3, cooperative, normal mood/affect, nml cerebellar function, sensation nml, No motor deficits Eye Exam: PERRL, EOMI, eyes nml inspection Ears, Nose, Throat Exam: normal ENT inspection, pharynx normal, moist mucous membranes Neck Exam: normal inspection, non-tender, supple, full range of motion Respiratory Exam: normal breath sounds, lungs clear, No respiratory distress Cardiovascular Exam: regular rate/rhythm, normal heart sounds Gastrointestinal/Abdomen Exam: soft, No tenderness, No mass Male Genitalia Exam: deferred Rectal Exam: deferred Back Exam: normal inspection, normal range of motion, No CVA tenderness, No vertebral tenderness Extremity Exam: normal inspection, normal range of motion Skin Exam: normal color, warm, dry Final Diagnosis/Problem List - Final Discharge Diagnosis/Problem (1) Respiratory failure Status: Resolved Code(s): J96.90 - RESPIRATORY FAILURE, UNSP, UNSP W HYPOXIA OR HYPERCAPNIA (2) Pneumonia Status: Acute Assessment & Plan: improved. doing much better Code(s): J18.9 - PNEUMONIA, UNSPECIFIED ORGANISM (3) Atrial fibrillation Status: Chronic Code(s): I48.91 - UNSPECIFIED ATRIAL FIBRILLATION - Discharge Discharge Date: 05/02/22 Disposition: Home, Self-Care Condition: Stable Prescriptions: New Levofloxacin [Levofloxacin 500 MG Tablet] 500 mg PO DAILY #7 tablet Methylprednisolone Packet [Medrol Dosepack] 4 mg PO DAILY #1 packet Continue Propranolol HCl 40 mg PO DAILY Fluoxetine HCl 20 mg [Prozac 20 MG] 20 mg PO DAILY 30 Days #30 cap Albuterol Common Canister [Ventolin Common Canister] 2 puffs IH Q4HPRN PRN 30 Days #1 puff PRN Reason: Shortness Of Breath/Wheezing Rifaximin [Xifaxan] 550 mg PO BID 30 Days #60 tablet Potassium Chloride [Klor-Con 8] 8 meq PO DAILY PRN PRN PRN Reason: Muscle Spasms Levothyroxine Sodium 175 mcg PO DAILY OLANZapine [Zyprexa] 20 mg PO HS Alprazolam [Xanax] 0.5 mg PO TID Apixaban [Eliquis] 5 mg PO BID #60 tablet Bumetanide 1 mg [Bumex 1 mg] 2 mg PO BID Promethazine HCl 25 mg [Phenergan 25 mg] 25 mg PO DAILY Cholestyramine (with Sugar) [Questran Powder] 1 scoop PO DAILY PRN PRN PRN Reason: Diarrhea Metoprolol Tartrate 50 mg [Lopressor 50 MG] 50 mg PO BID Tizanidine HCl 4 mg [Zanaflex 4 MG] 4 mg PO Q8H PRN PRN Reason: Pain Hydroxyzine HCl 25 mg [Atarax 25 mg] 25 mg PO TID PRN PRN Reason: Itching Gabapentin 600 mg PO TID Instructions: Pneumonia, Adult (DC) Follow up with: KETAN ECHEVARRIA [Primary Care Provider] - 05/11/22 9:30 am
== END 2022-05-02 11:05 | disposition home or self-care (01) | DRG 189 ==
LOC: ED 12:08 → MED SURG 15:36
PROVIDERS: ADMIT General Practice; ATTEND General Practice
DX: J96.90 Respiratory failure, unspecified, unspecified whether with hypoxia or hypercapnia (principal); J18.9 Pneumonia, unspecified organism; I48.91 Unspecified atrial fibrillation; I25.10 Atherosclerotic heart disease of native coronary artery without angina pectoris; I10 Essential (primary) hypertension; J44.9 Chronic obstructive pulmonary disease, unspecified; Z79.899 Other long term (current) drug therapy; Z20.828 Contact with and (suspected) exposure to other viral communicable diseases; Z79.01 Long term (current) use of anticoagulants; Z72.0 Tobacco use
CPT/HCPCS: 0241U; 36000; 36415; 71045; 80053; 81015; 83605; 83735; 83880; 84145; 84484; 85025; 87040; 87086; 93005; 93041; 94640; 94760; 94762; 96374; 96375; 99285; J0456; J0696; J1940; J2270; J2930; J7609; A9270-GY

== ENCOUNTER 2022-05-06 16:32 | Inpatient (IN) | payer MEDICARE ==
--- NOTE | 2022-05-06 16:38 | ERPHSYRPT ---
- History of Present Illness Source: patient Exam Limitations: no limitations Timing/Duration: worse Activities at Onset: activity Severity of Dyspnea-Max: moderate Severity of Dyspnea-Current: moderate Possible Cause: frequent episodes Modifying Factors: Improves With: activity (Worsens) Associated Symptoms: ankle swelling, No chest pain/discomfort Hx Tetanus, Diphtheria Vaccination/Date Given: Yes Hx Influenza Vaccination/Date Given: Yes Hx Pneumococcal Vaccination/Date Given: No - History of Present Illness Time Seen by Provider: 05/06/22 16:38 Physician History: This is a morbidly obese 51-year-old white male patient of Who has had a COVID-19 vaccination in the past. Patient was discharged to home a few days ago from the hospital after being in the hospital for couple days. He was diagnosed with a pneumonia. In the last 30 days, patient states he has gained 33 pounds. He does have a history of atrial fibrillation, coronary artery disease, hypertension, CHF, asthma, bronchitis, cirrhosis, hypothyroidism and bipolar disorder. Patient smokes cigarettes daily. Patient states he is not feeling any better. He does not have chest pain or abdominal pain. Patient states that he was given Rocephin and azithromycin antibiotics in the hospital. However, he was discharged with Levaquin. He still has a few pills remaining to take. (TD MONDRAGON) Allergies/Adverse Reactions: nitrofurantoin [From Macrobid] Allergy (Verified 05/01/22 15:55) Rash adhesive tape Adverse Reaction (Verified 05/01/22 15:55) Home Medications: Propranolol HCl 40 mg PO DAILY 11/04/18 [History] Alprazolam [Xanax] 0.5 mg PO TID 03/05/21 [History] Levothyroxine Sodium 175 mcg PO DAILY 03/05/21 [History] OLANZapine [Zyprexa] 20 mg PO HS 03/05/21 [History] Potassium Chloride [Klor-Con 8] 8 meq PO DAILY PRN PRN 03/05/21 [History] Bumetanide 1 mg [Bumex 1 mg] 2 mg PO BID 03/24/22 [History] Cholestyramine (with Sugar) [Questran Powder] 1 scoop PO DAILY PRN PRN 03/24/22 [History] Promethazine HCl 25 mg [Phenergan 25 mg] 25 mg PO DAILY 03/24/22 [History] Gabapentin 600 mg PO TID 05/01/22 [History] Hydroxyzine HCl 25 mg [Atarax 25 mg] 25 mg PO TID PRN 05/01/22 [History] Metoprolol Tartrate 50 mg [Lopressor 50 MG] 50 mg PO BID 05/01/22 [History] Tizanidine HCl 4 mg [Zanaflex 4 MG] 4 mg PO Q8H PRN 05/01/22 [History] Travel Risk - International Travel Have you traveled outside of the country in past 3 weeks: No - Coronavirus Screening Are you exhibiting any of the following symptoms?: No Close contact with a COVID-19 positive Pt in past 14-21 Days: No - Vaccine Status Have you recieved a Covid-19 vaccination: Yes 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[employer] - Vaccination Dates Date of 2cond Vaccination (if applicable): 2020 - Review of Systems Constitutional: No Symptoms Eyes: No Symptoms Ears, Nose, & Throat: No Symptoms Respiratory: Dyspnea on Exertion ([place]) Cardiac: No Symptoms Abdominal/Gastrointestinal: No Symptoms Genitourinary Symptoms: No Symptoms Musculoskeletal: No Symptoms Skin: No Symptoms Neurological: No Symptoms Psychological: No Symptoms Endocrine: No Symptoms Hematologic/Lymphatic: No Symptoms Immunological/Allergic: No Symptoms All Other Systems: Reviewed and Negative - Past Medical History Pertinent Past Medical History: Yes Neurological History: No Pertinent History ENT History: No Pertinent History Cardiac History: Arrhythmia, Coronary Artery Disease, Hypertension Respiratory History: Asthma, Bronchitis, CHF, COPD, Pneumonia Endocrine Medical History: Hypothyroidism Musculoskeletal History: Osteoarthritis GI Medical History: Hepatitis, Cirrhosis History: No Pertinent History Psycho-Social History: Anxiety, Bipolar, Depression Male Reproductive Disorders: No Pertinent History Other Medical History: frequent cellulitis in lower extremities - Past Surgical History Past Surgical History: Yes Neuro Surgical History: No Pertinent History Cardiac: No Pertinent History, Cardiac Catheterization Respiratory: No Pertinent History Gastrointestinal: Cholecystectomy Genitourinary: No Pertinent History Musculoskeletal: Orthopedic Surgery Male Surgical History: No Pertinent History Other Surgical History: rt knee,. had cath 5 or 6 years ago. - Social History Smoking Status: Current every day smoker How long have you smoked: 20 yrs Exposure to second hand smoke: Yes Drug Use: none Patient Lives Alone: No - Physical Exam General Appearance: mild distress, alert, anxiety, obese Eye Exam: PERRL/EOMI, eyes nml inspection Ears, Nose, Throat Exam: hearing grossly normal, normal ENT inspection, normal pharynx Neck Exam: normal inspection, non-tender, supple, full range of motion Respiratory Exam: normal breath sounds, lungs clear, airway intact, No chest tenderness, No respiratory distress Cardiovascular/Chest Exam: irregular Abdominal/Gastrointestinal Exam: soft, normal bowel sounds, No tenderness Rectal Exam: not done Extremity Exam: non-tender, normal range of motion, pedal edema (Patient has significant below the knee bilateral chronic venous stasis disease.) Neurologic Exam: alert, oriented x 3, cooperative, 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 as tested, normal mood/affect, nml cerebellar function, nml station & gait, sensation nml Skin Exam: other (Bilateral chronic venous stasis discoloration/disease) Lymphatic Exam: No adenopathy SpO2 Interpretation: borderline oxygenation O2 Delivery: Room Air - Nursing Vital Signs Nursing Vital Signs: Initial Vital Signs Temperature 98.3 F 05/06/22 16:33 Pulse Rate 118 H 05/06/22 16:33 Respiratory Rate 26 H 05/06/22 16:33 Blood Pressure 136/94 05/06/22 16:33 O2 Sat by Pulse Oximetry 92 L 05/06/22 16:33 Pain Scale Pain Intensity 0 - Course Nursing assessment & vital signs reviewed: Yes EKG Interpreted by Me: RATE (118), A-fib, prolonged QT interval, NORMAL QRS, NORMAL ST-T, Other (No acute ischemic changes on today's EKG. I do not appreciate the minimal ST depression in the inferior leads that the EKG is interpreting by the computer. No significant change from the EKG dated 03/17/2022) Ordered Tests: Active Orders 24 hr Category Date Time Status Dye Line Operator STAT Care 05/06/22 16:53 Active EKG-ER Only STAT Care 05/06/22 16:53 Active IV Insertion STAT Care 05/06/22 16:53 Active Pulse Oximetry (ED) STAT Care 05/06/22 16:53 Active CHEST 1 VIEW (PORTABLE) Stat Exams 05/06/22 17:08 Completed CHEST WITH CONTRAST [CT] Stat Exams 05/06/22 19:13 Taken BLOOD CULTURE Stat Lab 05/06/22 17:10 Received CBC W DIFF Stat Lab 05/06/22 16:50 Completed CMP Stat Lab 05/06/22 16:50 Completed CULTURE,SPUTUM Stat Lab 05/06/22 16:53 Ordered D-DIMER QUANTITATIVE Stat Lab 05/06/22 16:50 Completed Lactic Acid Stat Lab 05/06/22 16:53 Completed Lactic Acid Stat Lab 05/06/22 19:09 Received NT PRO BNP Stat Lab 05/06/22 16:50 Completed TROPONIN Q4H Lab 05/06/22 16:50 Completed TROPONIN Q4H Lab 05/06/22 21:00 Ordered TROPONIN Q4H Lab 05/07/22 01:00 Ordered Medication Summary Generic Name Dose Route Start Last Admin Trade Name Freq PRN Reason Stop Dose Admin Vancomycin HCl 1 gm in 200 mls @ 125 mls/hr 05/06/22 20:37 Vancomycin 1 Gram/200 Ml Bag IV 05/06/22 22:12 STAT ONE Piperacillin Sod/Tazobactam 100 mls @ 200 mls/hr 05/06/22 20:38 05/06/22 20:44 Sod 3.375 gm/ Sodium Chloride IV 05/06/22 21:07 200 mls/hr STAT ONE Administration Discontinued Medications Generic Name Dose Route Start Last Admin Trade Name Freq PRN Reason Stop Dose Admin Bumetanide 2 mg 05/06/22 17:34 05/06/22 19:28 Bumetanide 0.25 Mg/Ml 4ml Vial IV 05/06/22 17:35 2 mg STAT STA Administration Bumetanide Confirm 05/06/22 19:23 Bumetanide 0.25 Mg/Ml 4ml Vial Administered 05/06/22 19:24 Dose 2 mg .ROUTE .STK-MED ONE Sodium Chloride 500 mls @ 500 mls/hr 05/06/22 19:14 05/06/22 20:13 Sodium Chloride 0.9% 500 Ml IV 05/06/22 20:13 500 mls/hr .Q1H ONE Administration Sodium Chloride Confirm 05/06/22 20:12 Sodium Chloride 0.9% 500 Ml Administered 05/06/22 20:13 Dose 500 mls @ ud IV .STK-MED ONE Sodium Chloride Confirm 05/06/22 20:43 Sodium Chloride 100ml Mini-Bag Plus Administered 05/06/22 20:44 Dose 100 mls @ ud IV .STK-MED ONE Vancomycin HCl Confirm 05/06/22 20:43 Vancomycin 1 Gram/200 Ml Bag Administered 05/06/22 20:44 Dose 1 gm in 200 mls @ ud IV .STK-MED ONE Metoprolol Tartrate 5 mg 05/06/22 17:34 05/06/22 19:27 Metoprolol Tartrate 5 Mg/5 Ml Vial IV 05/06/22 17:35 5 mg STAT ONE Administration Metoprolol Tartrate Confirm 05/06/22 19:23 Metoprolol Tartrate 5 Mg/5 Ml Vial Administered 05/06/22 19:24 Dose 5 mg IV .STK-MED ONE Piperacillin Sod/Tazobactam Sod Confirm 05/06/22 20:42 Piperacillin/Tazobactam Sodium 3.375 Gm Vial Administered 05/06/22 20:43 Dose 3.375 gm IV .STK-MED ONE Piperacillin Sod/Tazobactam Sod Confirm 05/06/22 20:43 Piperacillin/Tazobactam Sodium 3.375 Gm Vial Administered 05/06/22 20:44 Dose 3.375 gm IV .STK-MED ONE Lab/Rad Data: Laboratory Result Diagrams 05/06/22 16:50 05/06/22 16:50 Laboratory Results 05/06/22 05/06/22 05/06/22 Range/Units 18:00 16:53 16:50 WBC (4.0-10.5) x10^3/uL RBC (4.1-5.6) x10^6/uL Hgb (12.5-18.0) g/dL Hct (42-50) % MCV (78-100) fL MCH (26-32) pg MCHC (32-36) g/dL RDW (11.5-14.0) % Plt Count (150-450) x10^3/uL MPV (7.5-11.0) fL Gran % (36.0-66.0) % Immature Gran % (Auto) (0.00-0.4) % Nucleat RBC Rel Count (0.00-0.1) % Eos # (Auto) (0-0.5) x10^3/uL Immature Gran # (Auto) (0.00-0.03) x10^3u/L Absolute Lymphs (auto) (1.0-4.6) x10^3/uL Absolute Monos (auto) (0.0-1.3) x10^3/uL Absolute Nucleated RBC (0.00-0.01) x10^3u/L Lymphocytes % (24.0-44.0) % Monocytes % (0.0-12.0) % Eosinophils % (0.00-5.0) % Basophils % (0.0-0.4) % Absolute Granulocytes (1.4-6.9) x10^3/uL Basophils # (0-0.4) x10^3/uL D-Dimer (0.0-0.50) mg/L Sodium (137-145) mmol/L Potassium (3.5-5.1) mmol/L Chloride (98-107) mmol/L Carbon Dioxide (22-30) mmol/L Anion Gap (5-15) MEQ/L BUN (9-20) mg/dL Creatinine (0.66-1.25) mg/dL Estimated GFR ML/MIN Glucose (74-106) mg/dL Lactic Acid 2.3 H (0.4-2.0) Calcium (8.4-10.2) mg/dL Total Bilirubin (0.2-1.3) mg/dL AST (17-59) U/L ALT (0-50) U/L Alkaline Phosphatase (38-126) U/L Troponin I < 0.012 (0.000-0.034) ng/mL NT-Pro-B Natriuret Pep (0-900) pg/mL Serum Total Protein (6.3-8.2) g/dL Albumin (3.5-5.0) g/dL Influenza Type A Ag NEGATIVE (NEGATIVE) Influenza Type B Ag NEGATIVE (NEGATIVE) RSV (PCR) NEGATIVE (Negative) SARS-CoV-2 (PCR) NEGATIVE (NEGATIVE) 05/06/22 05/06/22 05/06/22 Range/Units 16:50 16:50 16:50 WBC 8.0 (4.0-10.5) x10^3/uL RBC 5.43 (4.1-5.6) x10^6/uL Hgb 16.9 (12.5-18.0) g/dL Hct 53.1 H (42-50) % MCV 97.8 (78-100) fL MCH 31.1 (26-32) pg MCHC 31.8 L (32-36) g/dL RDW 15.9 H (11.5-14.0) % Plt Count 72 L (150-450) x10^3/uL MPV 11.1 H (7.5-11.0) fL Gran % 82.5 H (36.0-66.0) % Immature Gran % (Auto) 0.6 H (0.00-0.4) % Nucleat RBC Rel Count 0.0 (0.00-0.1) % Eos # (Auto) 0.05 (0-0.5) x10^3/uL Immature Gran # (Auto) 0.05 H (0.00-0.03) x10^3u/L Absolute Lymphs (auto) 0.78 L (1.0-4.6) x10^3/uL Absolute Monos (auto) 0.50 (0.0-1.3) x10^3/uL Absolute Nucleated RBC 0.00 (0.00-0.01) x10^3u/L Lymphocytes % 9.7 L (24.0-44.0) % Monocytes % 6.2 (0.0-12.0) % Eosinophils % 0.6 (0.00-5.0) % Basophils % 0.4 (0.0-0.4) % Absolute Granulocytes 6.60 (1.4-6.9) x10^3/uL Basophils # 0.03 (0-0.4) x10^3/uL D-Dimer 1.74 H* (0.0-0.50) mg/L Sodium 139 (137-145) mmol/L Potassium 3.6 (3.5-5.1) mmol/L Chloride 102 (98-107) mmol/L Carbon Dioxide 33 H (22-30) mmol/L Anion Gap 7.9 (5-15) MEQ/L BUN 11 (9-20) mg/dL Creatinine 0.70 (0.66-1.25) mg/dL Estimated GFR > 60.0 ML/MIN Glucose 149 H (74-106) mg/dL Lactic Acid (0.4-2.0) Calcium 8.5 (8.4-10.2) mg/dL Total Bilirubin 0.80 (0.2-1.3) mg/dL AST 34 (17-59) U/L ALT 21 (0-50) U/L Alkaline Phosphatase 128 H (38-126) U/L Troponin I (0.000-0.034) ng/mL NT-Pro-B Natriuret Pep 343 (0-900) pg/mL Serum Total Protein 7.0 (6.3-8.2) g/dL Albumin 3.4 L (3.5-5.0) g/dL Influenza Type A Ag (NEGATIVE) Influenza Type B Ag (NEGATIVE) RSV (PCR) (Negative) SARS-CoV-2 (PCR) (NEGATIVE) - Progress Progress: improved, re-examined Air Movement: fair Blood Culture(s) Obtained: Yes Antibiotics given: Yes Counseled pt/family regarding: lab results, diagnosis, rad results - Progress Progress Note: 05/06/22 17:32 Chest x-ray shows worsening right infrahilar airspace disease with new patchy left lung hazy airspace disease. 05/06/22 19:15 Patient care being transferred to Dr. Richard He at shift change. He will follow-up on test results and make final disposition. (TD MONDRAGON) Patient endorsed to Dr. He at approximately [address] He advised to follow- up on pending CTA chest. Patient is a 51-year-old male presents to our ED with shortness of breath. Patient was seen last in our ED. He was diagnosed with pneumonia. Patient was treated with Levaquin on outpatient basis. In spite of this treatment patient symptoms progressed. Today's chest x-ray reveals worsening pneumonia. D-dimer positive. CTA ordered and pending. Blood cultures obtained. Antibiotics infusing. Patient will require admission for further evaluation and treatment of shortness of breath and pneumonia. COVID-negative. Plan of care discussed with patient. He agrees to admission to [facility] for further evaluation and treatment. Dr. Haile will be notified pending results of CTA chest. 05/06/22 20:45 CTA chest reveals mild respiration artifact which limits PE evaluation. No obvious PE. No infiltrate or effusion. Stable cirrhosis, splenomegaly and distal periesophageal varices. New small abdominal ascites 05/06/22 20:[address] Haile accepts admission to observation. Patient has a history of COPD. On exam today patient is wheezing. Solu-Medrol and breathing treatments added to his regimen. Portions of this note were created with voice recognition technology. There may be grammatical, spelling, punctuation or sound alike errors 05/06/22 20:58 (RICHARD HE) - Departure Departure Disposition: In-patient Admission Critical Care Time: No - Departure Clinical Impression: Pneumonia, Thrombocytopenia, Lactic acidosis, Abdominal ascites, Wheezing, COPD exacerbation, tachycardia , SOB (shortness of breath) Condition: Stable Referrals: KETAN ECHEVARRIA [Primary Care Provider] - Follow up/PCP as directed Instructions: Chronic Obstructive Pulmonary Disease
--- NOTE | 2022-05-06 17:20 | XRAY ---
Indication: Cough and short of breath. Comparison: May 01, 2022 Portable chest demonstrates minimally worsening right infrahilar airspace disease with new diffuse patchy left lung hazy air space disease. Again no consolidation/large effusion. Heart not enlarged.
[2022-05-06 17:24] LABS: Basophil (Absolute #) 0.03 x10^3/uL (0-0.4); Eosinophil % 0.6 % (0.00-5.0); Eosinophil (Absolute #) 0.05 x10^3/uL (0-0.5); Hematocrit 53.1 % (42-50); Hemoglobin 16.9 g/dL (12.5-18.0); Lymphocyte (Absolute #) 0.78 x10^3/uL (1.0-4.6); Lymphocytes % 9.7 % (24.0-44.0); Mean Cell Volume 97.8 fL (78-100); Mean Corpuscular Hemoglobin 31.1 pg (26-32); Mean Corpuscular Hgb Concent. 31.8 g/dL (32-36); Mean Platelet Volume 11.1 fL (7.5-11.0); Monocytes % 6.2 % (0.0-12.0); Neutrophil % 82.5 % (36.0-66.0); Platelet Count 72 x10^3/uL (150-450); Red Blood Count 5.43 x10^6/uL (4.1-5.6); Red Cell Distribution Width 15.9 % (11.5-14.0)
[2022-05-06] MEDS ORDERED: LOPRESSOR INJECTION IV ONE ×2 (17:34→19:23)
[2022-05-06] MEDS ORDERED: BUMEX 1 MG IV STA (17:34)
[2022-05-06 18:13] LABS: ALBUMIN 3.4 g/dL (3.5-5.0); ALKALINE PHOSPHATASE 128 U/L (38-126); ANION GAP 7.9 MEQ/L (5-15); BLOOD UREA NITROGEN 11 mg/dL (9-20); CHLORIDE 102 mmol/L (98-107); Calcium 8.5 mg/dL (8.4-10.2); Carbon Dioxide 33 mmol/L (22-30); EST GLOMERULAR FILTRATION RATE > 60.0 ML/MIN; Glucose 149 mg/dL (74-106); NT PRO BNP 343 pg/mL (0-900); Potassium 3.6 mmol/L (3.5-5.1); SGOT/AST 34 U/L (17-59); SGPT/ALT 21 U/L (0-50); SODIUM 139 mmol/L (137-145)
[2022-05-06 18:26] LABS: INFLUENZA A NEGATIVE (NEGATIVE); INFLUENZA B NEGATIVE (NEGATIVE); RESPIRATORY SYNCTIAL VIRUS NEGATIVE (Negative); SARS-CoV-2 Xpert Express NEGATIVE (NEGATIVE)
[2022-05-06] MEDS ORDERED: Sodium Chloride 0.9% 500 ML 500 ML IV ONE ×2 (19:14→20:12)
[2022-05-06] MEDS ORDERED: BUMEX 1 MG ONE (19:23)
[2022-05-06] MEDS ORDERED: VANCOMYCIN 1 GRAM/200 ML BAG 1 GM/200 ML PIGGYBACK IV ONE ×2 (20:37→20:43)
[2022-05-06] MEDS ORDERED: PIPERACILLIN/TAZOBACTAM 3.375 GM in Sodium Chloride 100ML MINI-BAG PLUS 100 ML IV ONE (20:38)
[2022-05-06] MEDS ORDERED: PIPERACILLIN/TAZOBACTAM IV ONE ×2 (20:42→20:43)
[2022-05-06] MEDS ORDERED: Sodium Chloride 100ML MINI-BAG PLUS 100 ML IV ONE (20:43)
[2022-05-06] MEDS ORDERED: PROVENTIL 2.5 MG/3 ML NEB IH ONE ×2 (20:50→21:23)
[2022-05-06] MEDS ORDERED: solu-MEDROL 125 MG, Sterile H2O 10 ml 2 ML IV ONE ×2 (20:52)
[2022-05-06] MEDS ORDERED: solu-MEDROL ONE (21:51)
[2022-05-06] MEDS ORDERED: Sterile H2O 10 ml IJ ONE (21:51)
[2022-05-06] MEDS ORDERED: VANCOMYCIN 1 GRAM/200 ML BAG 1 GM/200 ML PIGGYBACK IV SCH (21:58)
[2022-05-06] MEDS ORDERED: ATARAX 25 MG PO PRN (23:25)
[2022-05-06] MEDS ORDERED: Zanaflex 4 MG PO PRN (23:27)
[2022-05-06] MEDS: PROVENTIL 2.5 MG/3 ML NEB IH SCH (23:30)
[2022-05-06] MEDS: Prozac 20 MG PO SCH (23:42)
[2022-05-06] MEDS: xanAX 0.5 MG PO SCH (23:42)
[2022-05-06 23:59] LABS: Slide Review 1 YES
[2022-05-07] MEDS: solu-MEDROL 80 MG, Sterile H2O 10 ml 2 ML IV SCH ×10 (00:46→23:43)
[2022-05-07] MEDS: PIPERACILLIN/TAZOBACTAM 3.375 GM in Sodium Chloride 100ML MINI-BAG PLUS 100 ML IV SCH ×2 (01:21→06:22)
[2022-05-07] MEDS: PROVENTIL 2.5 MG/3 ML NEB IH SCH ×6 (03:39→22:33)
[2022-05-07] MEDS ORDERED: Sterile H2O 10 ml IJ ONE (05:25)
[2022-05-07] MEDS ORDERED: solu-MEDROL ONE (05:25)
[2022-05-07] MEDS ORDERED: PIPERACILLIN/TAZOBACTAM IV ONE (06:15)
[2022-05-07] MEDS ORDERED: Sodium Chloride 100ML MINI-BAG PLUS 100 ML IV ONE (06:16)
[2022-05-07 07:03] LABS: Hematocrit 53.4 % (42-50); Hemoglobin 16.9 g/dL (12.5-18.0); Mean Cell Volume 98.2 fL (78-100); Mean Corpuscular Hemoglobin 31.1 pg (26-32); Mean Corpuscular Hgb Concent. 31.6 g/dL (32-36); Mean Platelet Volume 10.8 fL (7.5-11.0); Platelet Count 54 x10^3/uL (150-450); Red Blood Count 5.44 x10^6/uL (4.1-5.6); Red Cell Distribution Width 15.9 % (11.5-14.0); White Blood Count 5.3 x10^3/uL (4.0-10.5)
[2022-05-07] MEDS: Advair Hfa 115/21 Common canister IH SCH ×2 (07:12→18:42)
--- NOTE | 2022-05-07 08:39 | PCM.HP ---
History of Present Illness - Chief Complaint Chief Complaint: PNE History of Present Illness: is a 51 year old male who presented to the ER with cough and worsening shortness of breath, he normally follows with Dr Stern. He is morbidly obese and a smoker, has a history of copd. has oxygen 1L he uses at night PRN, dry cough, no fever but shortness of breath and wheezing. xray shows pneumonia, he has been on levaquin, chest ct negative for PE and no true infiltrate. - Review of Systems Constitutional: No Fever, No Chills Respiratory: Cough, Short Of Breath, Wheezing Cardiac: No Chest Pain, No Edema, No Syncope Abdominal/Gastrointestinal: No Abdominal Pain, No Nausea, No Vomiting, No Diarrhea Genitourinary Symptoms: No Dysuria Skin: No Rash Neurological: No Dizziness, No Focal Weakness, No Sensory Changes Medications & Allergies Home Medications: Home Medication List Propranolol HCl 40 mg PO DAILY 11/04/18 [History Confirmed 05/06/22] Albuterol Common Canister [Ventolin Common Canister] 2 puffs IH Q4HPRN PRN 30 Days #1 puff 08/31/20 [Rx Confirmed 05/06/22] Rifaximin [Xifaxan] 550 mg PO BID 30 Days #60 tablet 08/31/20 [Rx Confirmed 05/06/22] Alprazolam [Xanax] 0.5 mg PO TID 03/05/21 [History Confirmed 05/06/22] Levothyroxine Sodium 175 mcg PO DAILY 03/05/21 [History Confirmed 05/06/22] OLANZapine [Zyprexa] 20 mg PO DAILY 03/05/21 [History Confirmed 05/06/22] Potassium Chloride [Klor-Con 8] 8 meq PO DAILY PRN PRN 03/05/21 [History Confirmed 05/06/22] Apixaban [Eliquis] 5 mg PO BID #60 tablet 03/08/21 [Rx Confirmed 05/06/22] Bumetanide 1 mg [Bumex 1 mg] 2 mg PO BID 03/24/22 [History Confirmed 05/06/22] Cholestyramine (with Sugar) [Questran Powder] 1 scoop PO DAILY PRN PRN 03/24/22 [History Confirmed 05/06/22] Promethazine HCl 25 mg [Phenergan 25 mg] 25 mg PO Q4H PRN PRN 03/24/22 [History Confirmed 05/06/22] Gabapentin 600 mg PO TID 05/01/22 [History Confirmed 05/06/22] Hydroxyzine HCl 25 mg [Atarax 25 mg] 25 mg PO TID PRN 05/01/22 [History Confirmed 05/06/22] Metoprolol Tartrate 50 mg [Lopressor 50 MG] 50 mg PO BID 05/01/22 [History Confirmed 05/06/22] Tizanidine HCl 4 mg [Zanaflex 4 MG] 4 mg PO Q8H PRN 05/01/22 [History Confirmed 05/06/22] Fluoxetine HCl 20 mg [Prozac 20 MG] 20 mg PO HS 05/06/22 [History Confirmed 05/06/22] Allergies/Adverse Reactions: Allergies Allergy/AdvReac Type Severity Reaction Status Date / Time nitrofurantoin Allergy Rash Verified 05/01/22 15:55 [From Macrobid] adhesive tape AdvReac Verified 05/01/22 15:55 - Past Medical History Past Medical History: Yes Neurological History: No Pertinent History ENT History: No Pertinent History Cardiac History: Arrhythmia, Coronary Artery Disease, Hypertension Respiratory History: Asthma, Bronchitis, CHF, COPD, Pneumonia Endocrine Medical History: Hypothyroidism Musculoskelatal History: Osteoarthritis GI Medical History: Hepatitis, Cirrhosis History: No Pertinent History Pyscho-Social History: Anxiety, Bipolar, Depression Male Reproductive Disorders: No Pertinent History Comment: frequent cellulitis in lower extremities - Past Surgical History Past Surgical History: Yes Neuro Surgical History: No Pertinent History Cardiac History: No Pertinent History, Cardiac Catheterization Respiratory Surgery: No Pertinent History GI Surgical History: Cholecystectomy Genitourinary Surgical Hx: No Pertinent History Musculskeletal Surgical Hx: Orthopedic Surgery Male Surgical History: No Pertinent History Other Surgical History: rt knee,. had cath 5 or 6 years ago. - Social History Smoking Status: Current every day smoker How long have you smoked: 20 yrs Exposure to second hand smoke: Yes Alcohol: None Drug Use: none - Physical Exam Vital Signs: Vital Signs - 24 hr Temp Pulse Resp BP Pulse Ox 05/07/22 07:18 107 H 18 87 L 05/07/22 06:57 96.2 F 98 H 20 129/92 92 L 05/07/22 06:00 91 L 05/07/22 04:00 96.8 F 104 H 23 134/94 91 L 05/07/22 03:39 104 H 23 91 L 05/06/22 23:32 102 H 19 90 L 05/06/22 23:28 94 L 05/06/22 22:36 97.8 F 120 H 26 H 110/75 93 L 05/06/22 21:27 72 24 93 L 05/06/22 16:33 98.3 F 118 H 26 H 136/94 90 L General Appearance: no apparent distress, obese Neurologic Exam: alert, oriented x 3 Respiratory Exam: wheezing Cardiovascular Exam: regular rate/rhythm, normal heart sounds, normal peripheral pulses Gastrointestinal/Abdomen Exam: soft, normal bowel sounds, No tenderness, No mass Extremity Exam: normal inspection, normal range of motion, pelvis stable Skin Exam: normal color, warm, dry, No rash Results - Labs Lab/Micro Results: Lab Results-Last 24 Hours 05/06/22 05/06/22 05/06/22 Range/Units 16:50 16:50 16:50 WBC 8.0 (4.0-10.5) x10^3/uL RBC 5.43 (4.1-5.6) x10^6/uL Hgb 16.9 (12.5-18.0) g/dL Hct 53.1 H (42-50) % MCV 97.8 (78-100) fL MCH 31.1 (26-32) pg MCHC 31.8 L (32-36) g/dL RDW 15.9 H (11.5-14.0) % Plt Count 72 L (150-450) x10^3/uL MPV 11.1 H (7.5-11.0) fL Gran % 82.5 H (36.0-66.0) % Immature Gran % (Auto) 0.6 H (0.00-0.4) % Nucleat RBC Rel Count 0.0 (0.00-0.1) % Eos # (Auto) 0.05 (0-0.5) x10^3/uL Immature Gran # (Auto) 0.05 H (0.00-0.03) x10^3u/L Absolute Lymphs (auto) 0.78 L (1.0-4.6) x10^3/uL Absolute Monos (auto) 0.50 (0.0-1.3) x10^3/uL Absolute Nucleated RBC 0.00 (0.00-0.01) x10^3u/L Lymphocytes % 9.7 L (24.0-44.0) % Monocytes % 6.2 (0.0-12.0) % Eosinophils % 0.6 (0.00-5.0) % Basophils % 0.4 (0.0-0.4) % Absolute Granulocytes 6.60 (1.4-6.9) x10^3/uL Basophils # 0.03 (0-0.4) x10^3/uL D-Dimer 1.74 H* (0.0-0.50) mg/L Sodium 139 (137-145) mmol/L Potassium 3.6 (3.5-5.1) mmol/L Chloride 102 (98-107) mmol/L Carbon Dioxide 33 H (22-30) mmol/L Anion Gap 7.9 (5-15) MEQ/L BUN 11 (9-20) mg/dL Creatinine 0.70 (0.66-1.25) mg/dL Estimated GFR > 60.0 ML/MIN Glucose 149 H (74-106) mg/dL Lactic Acid (0.4-2.0) Calcium 8.5 (8.4-10.2) mg/dL Total Bilirubin 0.80 (0.2-1.3) mg/dL AST 34 (17-59) U/L ALT 21 (0-50) U/L Alkaline Phosphatase 128 H (38-126) U/L Troponin I (0.000-0.034) ng/mL NT-Pro-B Natriuret Pep 343 (0-900) pg/mL Serum Total Protein 7.0 (6.3-8.2) g/dL Albumin 3.4 L (3.5-5.0) g/dL Influenza Type A Ag (NEGATIVE) Influenza Type B Ag (NEGATIVE) RSV (PCR) (Negative) SARS-CoV-2 (PCR) (NEGATIVE) Slides for Path Review YES 05/06/22 05/06/22 05/06/22 Range/Units 16:50 16:53 18:00 WBC (4.0-10.5) x10^3/uL RBC (4.1-5.6) x10^6/uL Hgb (12.5-18.0) g/dL Hct (42-50) % MCV (78-100) fL MCH (26-32) pg MCHC (32-36) g/dL RDW (11.5-14.0) % Plt Count (150-450) x10^3/uL MPV (7.5-11.0) fL Gran % (36.0-66.0) % Immature Gran % (Auto) (0.00-0.4) % Nucleat RBC Rel Count (0.00-0.1) % Eos # (Auto) (0-0.5) x10^3/uL Immature Gran # (Auto) (0.00-0.03) x10^3u/L Absolute Lymphs (auto) (1.0-4.6) x10^3/uL Absolute Monos (auto) (0.0-1.3) x10^3/uL Absolute Nucleated RBC (0.00-0.01) x10^3u/L Lymphocytes % (24.0-44.0) % Monocytes % (0.0-12.0) % Eosinophils % (0.00-5.0) % Basophils % (0.0-0.4) % Absolute Granulocytes (1.4-6.9) x10^3/uL Basophils # (0-0.4) x10^3/uL D-Dimer (0.0-0.50) mg/L Sodium (137-145) mmol/L Potassium (3.5-5.1) mmol/L Chloride (98-107) mmol/L Carbon Dioxide (22-30) mmol/L Anion Gap (5-15) MEQ/L BUN (9-20) mg/dL Creatinine (0.66-1.25) mg/dL Estimated GFR ML/MIN Glucose (74-106) mg/dL Lactic Acid 2.3 H (0.4-2.0) Calcium (8.4-10.2) mg/dL Total Bilirubin (0.2-1.3) mg/dL AST (17-59) U/L ALT (0-50) U/L Alkaline Phosphatase (38-126) U/L Troponin I < 0.012 (0.000-0.034) ng/mL NT-Pro-B Natriuret Pep (0-900) pg/mL Serum Total Protein (6.3-8.2) g/dL Albumin (3.5-5.0) g/dL Influenza Type A Ag NEGATIVE (NEGATIVE) Influenza Type B Ag NEGATIVE (NEGATIVE) RSV (PCR) NEGATIVE (Negative) SARS-CoV-2 (PCR) NEGATIVE (NEGATIVE) Slides for Path Review 05/06/22 05/07/22 05/07/22 Range/Units 21:25 02:20 06:58 WBC 5.3 (4.0-10.5) x10^3/uL RBC 5.44 (4.1-5.6) x10^6/uL Hgb 16.9 (12.5-18.0) g/dL Hct 53.4 H (42-50) % MCV 98.2 (78-100) fL MCH 31.1 (26-32) pg MCHC 31.6 L (32-36) g/dL RDW 15.9 H (11.5-14.0) % Plt Count 54 L (150-450) x10^3/uL MPV 10.8 (7.5-11.0) fL Gran % (36.0-66.0) % Immature Gran % (Auto) (0.00-0.4) % Nucleat RBC Rel Count (0.00-0.1) % Eos # (Auto) (0-0.5) x10^3/uL Immature Gran # (Auto) (0.00-0.03) x10^3u/L Absolute Lymphs (auto) (1.0-4.6) x10^3/uL Absolute Monos (auto) (0.0-1.3) x10^3/uL Absolute Nucleated RBC (0.00-0.01) x10^3u/L Lymphocytes % (24.0-44.0) % Monocytes % (0.0-12.0) % Eosinophils % (0.00-5.0) % Basophils % (0.0-0.4) % Absolute Granulocytes (1.4-6.9) x10^3/uL Basophils # (0-0.4) x10^3/uL D-Dimer (0.0-0.50) mg/L Sodium (137-145) mmol/L Potassium (3.5-5.1) mmol/L Chloride (98-107) mmol/L Carbon Dioxide (22-30) mmol/L Anion Gap (5-15) MEQ/L BUN (9-20) mg/dL Creatinine (0.66-1.25) mg/dL Estimated GFR ML/MIN Glucose (74-106) mg/dL Lactic Acid (0.4-2.0) Calcium (8.4-10.2) mg/dL Total Bilirubin (0.2-1.3) mg/dL AST (17-59) U/L ALT (0-50) U/L Alkaline Phosphatase (38-126) U/L Troponin I < 0.012 < 0.012 (0.000-0.034) ng/mL NT-Pro-B Natriuret Pep (0-900) pg/mL Serum Total Protein (6.3-8.2) g/dL Albumin (3.5-5.0) g/dL Influenza Type A Ag (NEGATIVE) Influenza Type B Ag (NEGATIVE) RSV (PCR) (Negative) SARS-CoV-2 (PCR) (NEGATIVE) Slides for Path Review - Radiology Impressions Radiology Exams & Impressions: Radiology Procedures Category Date Time Status CHEST 1 VIEW (PORTABLE) Stat Exams 05/06/22 17:08 Completed CHEST WITH CONTRAST [CT] Stat Exams 05/06/22 19:13 Taken - Other Procedures and Tests Respiratory Therapy 05/06/22 21:27 Respiratory Therapy Assessment DAILY 05/06/22 23:32 Oxygen Nasal Cannula 3 lpm Assessment/Plan (1) COPD exacerbation Current Visit: Yes Status: Acute Assessment & Plan: IV solu medrol, nebs and rocephin/zithromax. will d/c vanc and zosyn as I feel he is a true copd exacerbation as opposed to pneumonia based on CT findings. Code(s): J44.1 - CHRONIC OBSTRUCTIVE PULMONARY DISEASE W (ACUTE) EXACERBATION (2) Atrial fibrillation Current Visit: No Status: Chronic Qualifiers: Assessment & Plan: continue eliquis and metoprolol. no changes Code(s): I48.91 - UNSPECIFIED ATRIAL FIBRILLATION (3) Morbid obesity Current Visit: Yes Status: Acute Code(s): E66.01 - MORBID (SEVERE) OBESITY DUE TO EXCESS CALORIES
--- NOTE | 2022-05-07 08:44 | XRAY ---
Indication: Short of breath and cough. Elevated d-dimer. Multiple contiguous axial images obtained through the chest using 125 cc Isovue 370 contrast and PE protocol. Comparison: March 17, 2022 Adequate opacification of the pulmonary arteries. However mild diffuse respiration artifact limits evaluation of the more distal lobar and segmental branches. No obvious pulmonary embolus. Heart not enlarged. Aorta is normal in course and caliber. Stable tiny mediastinal and left hilar calcified nodes. No pathologic mediastinal/hilar lymphadenopathy. Grossly stable distal paraesophageal varices. Lungs again demonstrate minimal bilateral peripheral fibrosis/scarring. No suspicious pulmonary mass, infiltrate, consolidation, or effusion. Bony thorax intact again with mild/moderate degenerative changes throughout the thoracolumbar spine, remote T7 superior endplate fracture, and remote bilateral rib fractures. Again incidental bilateral gynecomastia. Limited upper abdomen again demonstrates cirrhotic liver and 17 cm splenomegaly. New incompletely visualized small abdominal ascites. Impression: 1. Pulmonary most evaluation limited by respiration artifact. No obvious pulmonary embolus. 2. No new/acute cardiopulmonary abnormalities. 3. Again cirrhotic liver, splenomegaly, and distal paraesophageal varices. New incompletely visualized ascites. 4. Chronic findings including pulmonary fibrosis/scarring, chronic bony findings, bilateral gynecomastia, and old granulomatous disease.
[2022-05-07 09:11] LABS: Slide Review YES
[2022-05-07] MEDS ORDERED: NON-FORMULARY ITEM (Potassium Chloride [Klor-Con 8] 8 MEQ Tablet.Er) PO PRN (09:17)
[2022-05-07] MEDS ORDERED: Klor Con PO PRN (09:34)
[2022-05-07 09:39] LABS: ALBUMIN 3.4 g/dL (3.5-5.0); ALKALINE PHOSPHATASE 124 U/L (38-126); ANION GAP 10.1 MEQ/L (5-15); BLOOD UREA NITROGEN 13 mg/dL (9-20); CHLORIDE 98 mmol/L (98-107); Calcium 8.1 mg/dL (8.4-10.2); Carbon Dioxide 35 mmol/L (22-30); Creatinine 1 0.66 mg/dL (0.66-1.25); EST GLOMERULAR FILTRATION RATE > 60.0 ML/MIN; Glucose 288 mg/dL (74-106); Potassium 3.7 mmol/L (3.5-5.1); SGOT/AST 28 U/L (17-59); SGPT/ALT 23 U/L (0-50); SODIUM 139 mmol/L (137-145); Total Protein 6.9 g/dL (6.3-8.2)
[2022-05-07] MEDS ORDERED: MEDICATION INTERVENTION MC SCH (09:45)
[2022-05-07] MEDS ORDERED: VANCOMYCIN 2 GRAM/400 ML BAG 2 GM/400 ML PIGGYBACK IV SCH (10:00)
[2022-05-07] MEDS ORDERED: OLANZAPINE 20 MG PO SCH (10:00)
[2022-05-07] MEDS ORDERED: NON-FORMULARY ITEM (Rifaximin [Xifaxan] 550 MG Tablet) PO SCH (10:00)
[2022-05-07] MEDS ORDERED: LEVOTHYROXINE SODIUM 200 MCG PO SCH (10:00)
[2022-05-07] MEDS ORDERED: PROPRANOLOL HCL 40 MG PO SCH (10:00)
[2022-05-07] MEDS ORDERED: FLUZONE QUAD 2022-2023 SYRINGE IM ONE ×2 (10:00→13:19)
[2022-05-07] MEDS ORDERED: NON-FORMULARY ITEM (Apixaban [Eliquis] 5 MG Tablet) PO SCH (10:00)
[2022-05-07] MEDS: BUMEX 1 MG PO SCH ×2 (10:19→21:10)
[2022-05-07] MEDS: ELIQUIS 2.5 MG TABLET PO SCH ×2 (10:20→21:10)
[2022-05-07] MEDS: NEURONTIN PO SCH ×3 (10:20→21:10)
[2022-05-07] MEDS: Lopressor 50 MG PO SCH ×2 (10:20→21:10)
[2022-05-07] MEDS: Inderal PO SCH (10:20)
[2022-05-07] MEDS: Zithromax 500 MG/ 250 ML NaCl Premix 500 MG/250 ML IVPB IV SCH (10:21)
[2022-05-07] MEDS: ROCEPHIN 1 Gm-D5w 50 ml Bag** 1 G/50 ML IVPB IV SCH (10:21)
[2022-05-07] MEDS: SYNTHROID 100 MCG PO SCH (10:21)
[2022-05-07] MEDS: SYNTHROID 75 MCG PO SCH (10:21)
[2022-05-07] MEDS: zyPREXA 5MG TABLET PO SCH (10:21)
[2022-05-07] MEDS: xanAX 0.5 MG PO SCH ×3 (10:22→21:10)
[2022-05-07] MEDS ORDERED: PIPERACILLIN/TAZOBACTAM 3.375 GM in Sodium Chloride 100ML MINI-BAG PLUS 100 ML IV SCH (12:00)
[2022-05-07] MEDS: Prozac 20 MG PO SCH (21:10)
[2022-05-07] MEDS: Zanaflex 4 MG PO PRN (23:47)
[2022-05-08] MEDS: PROVENTIL 2.5 MG/3 ML NEB IH SCH ×6 (03:10→22:56)
[2022-05-08 06:07] LABS: Absolute Neutrophil Ct (ANC) 6.33 x10^3/uL (1.4-6.9); Basophil (Absolute #) 0.01 x10^3/uL (0-0.4); Eosinophil (Absolute #) 0 x10^3/uL (0-0.5); Hematocrit 51.8 % (42-50); Hemoglobin 16.6 g/dL (12.5-18.0); Lymphocyte (Absolute #) 0.45 x10^3/uL (1.0-4.6); Lymphocytes % 6.3 % (24.0-44.0); Mean Cell Volume 95.7 fL (78-100); Mean Corpuscular Hemoglobin 30.7 pg (26-32); Mean Platelet Volume 10.7 fL (7.5-11.0); Monocyte (Absolute #) 0.33 x10^3/uL (0.0-1.3); Monocytes % 4.6 % (0.0-12.0); Neutrophil % 88.4 % (36.0-66.0); Platelet Count 55 x10^3/uL (150-450); Red Blood Count 5.41 x10^6/uL (4.1-5.6); White Blood Count 7.2 x10^3/uL (4.0-10.5)
[2022-05-08] MEDS: solu-MEDROL 80 MG, Sterile H2O 10 ml 2 ML IV SCH ×6 (06:13→18:45)
[2022-05-08] MEDS: Advair Hfa 115/21 Common canister IH SCH ×2 (06:46→19:03)
[2022-05-08 06:47] LABS: ALBUMIN 3.2 g/dL (3.5-5.0); ALKALINE PHOSPHATASE 125 U/L (38-126); BLOOD UREA NITROGEN 13 mg/dL (9-20); CHLORIDE 96 mmol/L (98-107); Calcium 8.2 mg/dL (8.4-10.2); Creatinine 1 0.53 mg/dL (0.66-1.25); EST GLOMERULAR FILTRATION RATE > 60.0 ML/MIN; Glucose 179 mg/dL (74-106); Potassium 3.7 mmol/L (3.5-5.1); SGOT/AST 24 U/L (17-59); SGPT/ALT 24 U/L (0-50); SODIUM 137 mmol/L (137-145); Total Protein 6.5 g/dL (6.3-8.2)
[2022-05-08 06:54] LABS: Carbon Dioxide 37 mmol/L (22-30)
[2022-05-08 06:55] LABS: ANION GAP 7.7 MEQ/L (5-15)
[2022-05-08 08:09] LABS: Slide Review 1 YES
--- NOTE | 2022-05-08 08:22 | PCM.NOTE ---
Date and Time: 05/08/22820 Subjective Assessment: patient notes improvement in his dyspnea, oxygen decreased from 5L to 4L this am. able to go to restroom easier with his breathing and walk short distances etc Objective Exam General Appearance: no apparent distress, obese Neurologic Exam: alert, oriented x 3 Respiratory Exam: prolonged expirations, wheezing Cardiovascular Exam: regular rate/rhythm, normal heart sounds Gastrointestinal/Abdomen Exam: soft, No tenderness, No mass Extremity Exam: normal inspection, normal range of motion OBJECTIVE DATA Vital Signs: Vital Signs - 24 hr Temp Pulse Resp BP Pulse Ox 05/08/22 07:58 97.3 F 88 17 144/87 94 L 05/08/22 06:47 82 18 92 L 05/08/22 03:52 97.3 F 91 H 26 H 131/88 94 L 05/08/22 03:24 96 H 20 94 L 05/08/22 00:00 97.3 F 86 20 135/97 95 05/07/22 22:33 96 H 18 93 L 05/07/22 20:00 97.1 F 100 H 20 159/101 90 L 05/07/22 18:42 103 H 18 93 L 05/07/22 16:00 97.1 F 93 H 18 139/98 90 L 05/07/22 14:59 103 H 17 91 L 05/07/22 11:58 97.3 F 96 H 20 147/86 92 L 05/07/22 10:59 119 H 19 93 L Pain Assessment - Last Documented Pain Intensity 2 Intake and Output: Intake & Output 05/05/22 05/06/22 05/07/22 05/08/22 11:59 11:59 11:59 11:59 Intake Total 600 4460 Output Total 1800 8650 Balance -1200 -4190 Weight 202 kg Lab Results: Lab Results-Last 24 Hours 05/07/22 05/07/22 05/08/22 Range/Units 06:58 06:58 05:25 WBC 7.2 (4.0-10.5) x10^3/uL RBC 5.41 (4.1-5.6) x10^6/uL Hgb 16.6 (12.5-18.0) g/dL Hct 51.8 H (42-50) % MCV 95.7 (78-100) fL MCH 30.7 (26-32) pg MCHC 32.0 (32-36) g/dL RDW 16.0 H (11.5-14.0) % Plt Count 55 L (150-450) x10^3/uL MPV 10.7 (7.5-11.0) fL Gran % 88.4 H (36.0-66.0) % Immature Gran % (Auto) 0.6 H (0.00-0.4) % Nucleat RBC Rel Count 0.0 (0.00-0.1) % Eos # (Auto) 0 (0-0.5) x10^3/uL Immature Gran # (Auto) 0.04 H (0.00-0.03) x10^3u/L Absolute Lymphs (auto) 0.45 L (1.0-4.6) x10^3/uL Absolute Monos (auto) 0.33 (0.0-1.3) x10^3/uL Absolute Nucleated RBC 0.00 (0.00-0.01) x10^3u/L Lymphocytes % 6.3 L (24.0-44.0) % Monocytes % 4.6 (0.0-12.0) % Eosinophils % 0.0 (0.00-5.0) % Basophils % 0.1 (0.0-0.4) % Absolute Granulocytes 6.33 (1.4-6.9) x10^3/uL Basophils # 0.01 (0-0.4) x10^3/uL Sodium 139 (137-145) mmol/L Potassium 3.7 (3.5-5.1) mmol/L Chloride 98 (98-107) mmol/L Carbon Dioxide 35 H (22-30) mmol/L Anion Gap 10.1 (5-15) MEQ/L BUN 13 (9-20) mg/dL Creatinine 0.66 (0.66-1.25) mg/dL Estimated GFR > 60.0 ML/MIN Glucose 288 H (74-106) mg/dL Calcium 8.1 L (8.4-10.2) mg/dL Total Bilirubin 0.70 (0.2-1.3) mg/dL AST 28 (17-59) U/L ALT 23 (0-50) U/L Alkaline Phosphatase 124 (38-126) U/L Serum Total Protein 6.9 (6.3-8.2) g/dL Albumin 3.4 L (3.5-5.0) g/dL Slides for Path Review YES YES 05/08/22 Range/Units 05:25 WBC (4.0-10.5) x10^3/uL RBC (4.1-5.6) x10^6/uL Hgb (12.5-18.0) g/dL Hct (42-50) % MCV (78-100) fL MCH (26-32) pg MCHC (32-36) g/dL RDW (11.5-14.0) % Plt Count (150-450) x10^3/uL MPV (7.5-11.0) fL Gran % (36.0-66.0) % Immature Gran % (Auto) (0.00-0.4) % Nucleat RBC Rel Count (0.00-0.1) % Eos # (Auto) (0-0.5) x10^3/uL Immature Gran # (Auto) (0.00-0.03) x10^3u/L Absolute Lymphs (auto) (1.0-4.6) x10^3/uL Absolute Monos (auto) (0.0-1.3) x10^3/uL Absolute Nucleated RBC (0.00-0.01) x10^3u/L Lymphocytes % (24.0-44.0) % Monocytes % (0.0-12.0) % Eosinophils % (0.00-5.0) % Basophils % (0.0-0.4) % Absolute Granulocytes (1.4-6.9) x10^3/uL Basophils # (0-0.4) x10^3/uL Sodium 137 (137-145) mmol/L Potassium 3.7 (3.5-5.1) mmol/L Chloride 96 L (98-107) mmol/L Carbon Dioxide 37 H (22-30) mmol/L Anion Gap 7.7 (5-15) MEQ/L BUN 13 (9-20) mg/dL Creatinine 0.53 L (0.66-1.25) mg/dL Estimated GFR > 60.0 ML/MIN Glucose 179 H (74-106) mg/dL Calcium 8.2 L (8.4-10.2) mg/dL Total Bilirubin 0.60 (0.2-1.3) mg/dL AST 24 (17-59) U/L ALT 24 (0-50) U/L Alkaline Phosphatase 125 (38-126) U/L Serum Total Protein 6.5 (6.3-8.2) g/dL Albumin 3.2 L (3.5-5.0) g/dL Slides for Path Review Radiology Exams: Radiology Procedures Category Date Time Status CHEST 1 VIEW (PORTABLE) Stat Exams 05/06/22 17:08 Completed CHEST WITH CONTRAST [CT] Stat Exams 05/06/22 19:13 Completed Multi-Disciplinary Progress Notes: Multi-Disciplinary Progress Notes 05/07/22 17:27 Physical Therapy Note by Adelaida(L#[id number]),Alka Aguayo HELD @ THIS TIME D/T DECLINE IN MEDICAL STATUS. Initialized on 05/07/22 17:27 - END OF NOTE 05/07/22 11:16 Case Management Note by Charmaine Barahona THIS NURSE TRIED TO TALK WITH PATIENT ABOUT DC NEEDS- PATIENT UNABLE TO STAY AWAKE FOR CONVERSATION. NURSE NOTIFIED TO LET CM KNOW WHEN PATIENT IS MORE AWAKE Initialized on 05/07/22 11:16 - END OF NOTE Assessment/Plan (1) COPD exacerbation Current Visit: Yes Status: Acute Assessment & Plan: continue IV steroids, nebs and rocephin/zithromax. clinically improving slowly. Code(s): J44.1 - CHRONIC OBSTRUCTIVE PULMONARY DISEASE W (ACUTE) EXACERBATION (2) Atrial fibrillation Current Visit: No Status: Chronic Qualifiers: Assessment & Plan: stable, continue home meds. Code(s): I48.91 - UNSPECIFIED ATRIAL FIBRILLATION (3) Morbid obesity Current Visit: Yes Status: Acute Code(s): E66.01 - MORBID (SEVERE) OBESITY DUE TO EXCESS CALORIES
[2022-05-08] MEDS: ELIQUIS 2.5 MG TABLET PO SCH ×2 (10:36→21:27)
[2022-05-08] MEDS: NEURONTIN PO SCH ×3 (10:36→21:27)
[2022-05-08] MEDS: BUMEX 1 MG PO SCH ×2 (10:36→21:27)
[2022-05-08] MEDS: Lopressor 50 MG PO SCH ×2 (10:36→21:27)
[2022-05-08] MEDS: Inderal PO SCH (10:36)
[2022-05-08] MEDS: SYNTHROID 75 MCG PO SCH (10:37)
[2022-05-08] MEDS: ROCEPHIN 1 Gm-D5w 50 ml Bag** 1 G/50 ML IVPB IV SCH (10:37)
[2022-05-08] MEDS: SYNTHROID 100 MCG PO SCH (10:37)
[2022-05-08] MEDS: Zithromax 500 MG/ 250 ML NaCl Premix 500 MG/250 ML IVPB IV SCH (10:37)
[2022-05-08] MEDS: xanAX 0.5 MG PO SCH ×4 (10:37→21:28)
[2022-05-08] MEDS: zyPREXA 5MG TABLET PO SCH (10:38)
[2022-05-08] MEDS: Zanaflex 4 MG PO PRN (16:35)
[2022-05-08] MEDS: Prozac 20 MG PO SCH (21:28)
[2022-05-09] MEDS: Zanaflex 4 MG PO PRN ×2 (00:27→21:37)
[2022-05-09] MEDS: solu-MEDROL 80 MG, Sterile H2O 10 ml 2 ML IV SCH ×6 (00:28→12:27)
[2022-05-09] MEDS: PROVENTIL 2.5 MG/3 ML NEB IH SCH ×6 (03:15→23:20)
[2022-05-09] MEDS ORDERED: solu-MEDROL ONE ×2 (05:21→21:07)
[2022-05-09 06:10] LABS: Absolute Neutrophil Ct (ANC) 5.25 x10^3/uL (1.4-6.9); Basophil (Absolute #) 0 x10^3/uL (0-0.4); Eosinophil (Absolute #) 0 x10^3/uL (0-0.5); Hematocrit 50.8 % (42-50); Hemoglobin 16.1 g/dL (12.5-18.0); Lymphocyte (Absolute #) 0.47 x10^3/uL (1.0-4.6); Lymphocytes % 7.6 % (24.0-44.0); Mean Cell Volume 96.4 fL (78-100); Mean Corpuscular Hemoglobin 30.6 pg (26-32); Mean Corpuscular Hgb Concent. 31.7 g/dL (32-36); Monocyte (Absolute #) 0.36 x10^3/uL (0.0-1.3); Monocytes % 5.8 % (0.0-12.0); Neutrophil % 85.3 % (36.0-66.0); Platelet Count 67 x10^3/uL (150-450); Red Blood Count 5.27 x10^6/uL (4.1-5.6); Red Cell Distribution Width 15.9 % (11.5-14.0); White Blood Count 6.2 x10^3/uL (4.0-10.5)
[2022-05-09 07:10] LABS: BLOOD UREA NITROGEN 15 mg/dL (9-20); CHLORIDE 94 mmol/L (98-107); Calcium 8.1 mg/dL (8.4-10.2); Creatinine 1 0.59 mg/dL (0.66-1.25); EST GLOMERULAR FILTRATION RATE > 60.0 ML/MIN; Glucose 167 mg/dL (74-106); Potassium 3.6 mmol/L (3.5-5.1); SODIUM 138 mmol/L (137-145)
[2022-05-09 07:30] LABS: Carbon Dioxide 37 mmol/L (22-30)
[2022-05-09] MEDS: Advair Hfa 115/21 Common canister IH SCH ×2 (07:42→19:15)
[2022-05-09 07:48] LABS: ANION GAP 10.6 MEQ/L (5-15)
[2022-05-09 08:11] LABS: Slide Review 1 YES
[2022-05-09] MEDS: SYNTHROID 100 MCG PO SCH (08:39)
[2022-05-09] MEDS: BUMEX 1 MG PO SCH ×2 (08:39→18:50)
[2022-05-09] MEDS: ELIQUIS 2.5 MG TABLET PO SCH ×2 (08:40→21:37)
[2022-05-09] MEDS: xanAX 0.5 MG PO SCH ×3 (08:40→21:36)
[2022-05-09] MEDS: ROCEPHIN 1 Gm-D5w 50 ml Bag** 1 G/50 ML IVPB IV SCH (08:40)
[2022-05-09] MEDS: SYNTHROID 75 MCG PO SCH (08:40)
[2022-05-09] MEDS: Lopressor 50 MG PO SCH ×2 (08:40→21:37)
[2022-05-09] MEDS: zyPREXA 5MG TABLET PO SCH (08:40)
[2022-05-09] MEDS: Inderal PO SCH (08:40)
[2022-05-09] MEDS: NEURONTIN PO SCH ×3 (08:40→21:38)
[2022-05-09] MEDS: Zithromax 500 MG/ 250 ML NaCl Premix 500 MG/250 ML IVPB IV SCH (10:14)
--- NOTE | 2022-05-09 16:54 | PCM.NOTE ---
Date and Time: 05/09/22 165 Subjective Assessment: Pt is feeling much better. Has 1 L O2 prn at home (which he typically doesn't wear). Is maurizio po. - Review of Systems Constitutional: No Fever Respiratory: Short Of Breath Objective Exam General Appearance: no apparent distress, alert, obese (morbidly) Skin Exam: normal color, warm, dry, No rash Eye Exam: eyes nml inspection Ears, Nose, Throat Exam: moist mucous membranes Neck Exam: normal inspection Respiratory Exam: diminished breath sounds (good air exchange), wheezing (faint exp, scattered), No crackles/rales, No rhonchi Cardiovascular Exam: regular rate/rhythm, normal heart sounds, No murmur Gastrointestinal/Abdomen Exam: soft, normal bowel sounds, No tenderness, No mass, No guarding, No rebound Extremity Exam: swelling (trace pretibial edema), No normal inspection (chronic venous stasis change) OBJECTIVE DATA Vital Signs: Vital Signs - 24 hr Temp Pulse Resp BP Pulse Ox 05/09/22 16:00 97.1 F 88 24 124/83 94 L 05/09/22 15:54 94 L 05/09/22 15:40 76 18 91 L 05/09/22 11:43 73 18 91 L 05/09/22 11:00 97.1 F 86 21 144/77 91 L 05/09/22 07:18 71 18 91 L 05/09/22 07:00 96.9 F 73 23 113/77 92 L 05/09/22 03:15 98 H 20 91 L 05/09/22 03:00 97.3 F 81 24 129/86 98 05/08/22 23:00 97.8 F 99 H 20 119/81 92 L 05/08/22 22:57 99 H 20 92 L 05/08/22 19:00 97.7 F 100 H 20 117/76 90 L 05/08/22 18:51 100 H 20 90 L Pain Assessment - Last Documented Pain Intensity 0 Intake and Output: Intake & Output 05/07/22 05/08/22 05/09/22 05/10/22 11:59 11:59 11:59 11:59 Intake Total 600 4460 1942 360 Output Total 1800 9750 1400 2000 Balance -1200 -1330 542 -1640 Weight 202 kg 202 kg 201.8 kg Lab Results: Lab Results-Last 24 Hours 05/09/22 05/09/22 05/09/22 Range/Units 05:30 05:30 05:30 WBC 6.2 (4.0-10.5) x10^3/uL RBC 5.27 (4.1-5.6) x10^6/uL Hgb 16.1 (12.5-18.0) g/dL Hct 50.8 H (42-50) % MCV 96.4 (78-100) fL MCH 30.6 (26-32) pg MCHC 31.7 L (32-36) g/dL RDW 15.9 H (11.5-14.0) % Plt Count 67 L (150-450) x10^3/uL MPV 11.0 (7.5-11.0) fL Gran % 85.3 H (36.0-66.0) % Immature Gran % (Auto) 1.3 H (0.00-0.4) % Nucleat RBC Rel Count 0.0 (0.00-0.1) % Eos # (Auto) 0 (0-0.5) x10^3/uL Immature Gran # (Auto) 0.08 H (0.00-0.03) x10^3u/L Absolute Lymphs (auto) 0.47 L (1.0-4.6) x10^3/uL Absolute Monos (auto) 0.36 (0.0-1.3) x10^3/uL Absolute Nucleated RBC 0.00 (0.00-0.01) x10^3u/L Lymphocytes % 7.6 L (24.0-44.0) % Monocytes % 5.8 (0.0-12.0) % Eosinophils % 0.0 (0.00-5.0) % Basophils % 0.0 (0.0-0.4) % Absolute Granulocytes 5.25 (1.4-6.9) x10^3/uL Basophils # 0 (0-0.4) x10^3/uL Sodium 138 (137-145) mmol/L Potassium 3.6 (3.5-5.1) mmol/L Chloride 94 L (98-107) mmol/L Carbon Dioxide 37 H (22-30) mmol/L Anion Gap 10.6 (5-15) MEQ/L BUN 15 (9-20) mg/dL Creatinine 0.59 L (0.66-1.25) mg/dL Estimated GFR > 60.0 ML/MIN Glucose 167 H (74-106) mg/dL Hemoglobin A1c 5.85 (4.5-6.0) % Calcium 8.1 L (8.4-10.2) mg/dL Slides for Path Review YES Assessment/Plan (1) COPD exacerbation Current Visit: Yes Status: Acute Assessment & Plan: On rocephin and zithromax day #3. On steroids 80mg IV q6 - decreasing to 40mg IV q8h. If doing well tomorrow, may be able to d/c to home. Code(s): J44.1 - CHRONIC OBSTRUCTIVE PULMONARY DISEASE W (ACUTE) EXACERBATION (2) Morbid obesity Current Visit: Yes Status: Chronic Code(s): E66.01 - MORBID (SEVERE) OBESITY DUE TO EXCESS CALORIES (3) Liver disease, chronic, with cirrhosis Current Visit: No Status: Chronic Code(s): K74.60 - UNSPECIFIED CIRRHOSIS OF LIVER; K76.9 - LIVER DISEASE, UNSPECIFIED (4) Thrombocytopenia Current Visit: Yes Status: Chronic Assessment & Plan: likely related to liver dz
[2022-05-09] MEDS ORDERED: Sterile H2O 10 ml IJ ONE (21:08)
[2022-05-09] MEDS: solu-MEDROL 40 MG, Sterile H2O 10 ml 1 ML IV SCH ×2 (21:36)
[2022-05-09] MEDS: Prozac 20 MG PO SCH (21:38)
[2022-05-10] MEDS: PROVENTIL 2.5 MG/3 ML NEB IH SCH ×4 (03:15→15:08)
[2022-05-10] MEDS ORDERED: Sterile H2O 10 ml IJ ONE (05:37)
[2022-05-10] MEDS ORDERED: solu-MEDROL ONE (05:37)
[2022-05-10 06:01] LABS: Absolute Neutrophil Ct (ANC) 5.06 x10^3/uL (1.4-6.9); Basophil (Absolute #) 0.01 x10^3/uL (0-0.4); Eosinophil (Absolute #) 0 x10^3/uL (0-0.5); Hematocrit 49.1 % (42-50); Hemoglobin 16.1 g/dL (12.5-18.0); Lymphocyte (Absolute #) 0.37 x10^3/uL (1.0-4.6); Lymphocytes % 6.1 % (24.0-44.0); Mean Cell Volume 94.8 fL (78-100); Mean Corpuscular Hemoglobin 31.1 pg (26-32); Mean Corpuscular Hgb Concent. 32.8 g/dL (32-36); Mean Platelet Volume 11.4 fL (7.5-11.0); Monocyte (Absolute #) 0.53 x10^3/uL (0.0-1.3); Monocytes % 8.7 % (0.0-12.0); Neutrophil % 83.4 % (36.0-66.0); Platelet Count 64 x10^3/uL (150-450); Red Blood Count 5.18 x10^6/uL (4.1-5.6); Red Cell Distribution Width 16.3 % (11.5-14.0); White Blood Count 6.1 x10^3/uL (4.0-10.5)
[2022-05-10] MEDS: solu-MEDROL 40 MG, Sterile H2O 10 ml 1 ML IV SCH ×4 (06:21→15:19)
[2022-05-10 06:36] LABS: BLOOD UREA NITROGEN 18 mg/dL (9-20); CHLORIDE 94 mmol/L (98-107); Calcium 8.1 mg/dL (8.4-10.2); Creatinine 1 0.58 mg/dL (0.66-1.25); EST GLOMERULAR FILTRATION RATE > 60.0 ML/MIN; Glucose 204 mg/dL (74-106); Potassium 3.6 mmol/L (3.5-5.1); SODIUM 135 mmol/L (137-145)
[2022-05-10 06:42] LABS: Carbon Dioxide 36 mmol/L (22-30); Slide Review 1 YES
[2022-05-10 06:54] LABS: ANION GAP 8.6 MEQ/L (5-15)
[2022-05-10] MEDS: Advair Hfa 115/21 Common canister IH SCH (07:15)
[2022-05-10] MEDS: ELIQUIS 2.5 MG TABLET PO SCH (07:55)
[2022-05-10] MEDS: NEURONTIN PO SCH ×2 (07:55→16:07)
[2022-05-10] MEDS: Lopressor 50 MG PO SCH (07:55)
[2022-05-10] MEDS: zyPREXA 5MG TABLET PO SCH (07:55)
[2022-05-10] MEDS: SYNTHROID 100 MCG PO SCH (07:56)
[2022-05-10] MEDS: BUMEX 1 MG PO SCH (07:56)
[2022-05-10] MEDS: xanAX 0.5 MG PO SCH ×2 (07:56→16:07)
[2022-05-10] MEDS: Inderal PO SCH (07:56)
[2022-05-10] MEDS: SYNTHROID 75 MCG PO SCH (07:56)
[2022-05-10] MEDS: ROCEPHIN 1 Gm-D5w 50 ml Bag** 1 G/50 ML IVPB IV SCH (07:56)
[2022-05-10] MEDS: Zithromax 500 MG/ 250 ML NaCl Premix 500 MG/250 ML IVPB IV SCH (08:57)
[2022-05-10 12:41] VITALS: BP 127/81
--- NOTE | 2022-05-10 14:00 | PCM.DS ---
Discharge Summary Date of Admission: 05/06/22 21:54 Admitting Physician: MEEK HERR Primary Care Provider: KETAN STERN Allergies Allergies nitrofurantoin [From Macrobid] Allergy (Verified 05/01/22 15:55) Rash adhesive tape Adverse Reaction (Verified 05/01/22 15:55) Hospital Summary - Hospital Course Hospital Course: Pt is a [address] pt [address] Stern'rachel, admitted by Dr. Herr, with COPD, chronic liver disease, and morbid obesity (has 1L O2 for night time use but rarely uses). Was admitted through ER with COPD exacerbation. Had been on levaquin so was started on IV rocephin and zithromax; today is day #4. He is feeling better, was on 5L NC initially but now down to 2L NC. Tolerating po well. His platelets were low throughout his stay (64 today). Will discharge to home on po augmentin, with prednisone. F/u with Dr. Stern in 1 week. - Vitals & Intake/Output Vital Signs: Vital Signs Temperature 97.5 F 05/10/22 12:00 Pulse Rate 92 H 05/10/22 12:00 Respiratory Rate 16 05/10/22 12:00 Blood Pressure 127/81 05/10/22 12:00 O2 Sat by Pulse Oximetry 92 L 05/10/22 12:00 Intake & Output: Intake & Output 05/08/22 05/09/22 05/10/22 05/11/22 11:59 11:59 11:59 11:59 Intake Total 4460 1942 3720 360 Output Total 9750 1400 1999 Balance -5290 542 1720 360 Weight 202 kg 201.8 kg 204.7 kg - Lab Result Diagrams: 05/10/22 05:05 05/10/22 05:05 Lab Results-Last 24 Hrs: Lab Results-Last 24 Hours 05/10/22 05/10/22 Range/Units 05:05 05:05 WBC 6.1 (4.0-10.5) x10^3/uL RBC 5.18 (4.1-5.6) x10^6/uL Hgb 16.1 (12.5-18.0) g/dL Hct 49.1 (42-50) % MCV 94.8 (78-100) fL MCH 31.1 (26-32) pg MCHC 32.8 (32-36) g/dL RDW 16.3 H (11.5-14.0) % Plt Count 64 L (150-450) x10^3/uL MPV 11.4 H (7.5-11.0) fL Gran % 83.4 H (36.0-66.0) % Immature Gran % (Auto) 1.6 H (0.00-0.4) % Nucleat RBC Rel Count 0.0 (0.00-0.1) % Eos # (Auto) 0 (0-0.5) x10^3/uL Immature Gran # (Auto) 0.10 H (0.00-0.03) x10^3u/L Absolute Lymphs (auto) 0.37 L (1.0-4.6) x10^3/uL Absolute Monos (auto) 0.53 (0.0-1.3) x10^3/uL Absolute Nucleated RBC 0.00 (0.00-0.01) x10^3u/L Lymphocytes % 6.1 L (24.0-44.0) % Monocytes % 8.7 (0.0-12.0) % Eosinophils % 0.0 (0.00-5.0) % Basophils % 0.2 (0.0-0.4) % Absolute Granulocytes 5.06 (1.4-6.9) x10^3/uL Basophils # 0.01 (0-0.4) x10^3/uL Sodium 135 L (137-145) mmol/L Potassium 3.6 (3.5-5.1) mmol/L Chloride 94 L (98-107) mmol/L Carbon Dioxide 36 H (22-30) mmol/L Anion Gap 8.6 (5-15) MEQ/L BUN 18 (9-20) mg/dL Creatinine 0.58 L (0.66-1.25) mg/dL Estimated GFR > 60.0 ML/MIN Glucose 204 H (74-106) mg/dL Calcium 8.1 L (8.4-10.2) mg/dL Slides for Path Review YES Micro Results-Entire Visit: Microbiology 05/06/22 17:10 Blood Culture - Preliminary Blood NO GROWTH TO DATE 05/06/22 16:50 Blood Culture - Preliminary Blood NO GROWTH TO DATE - Procedures and Test Procedures and Tests throughout Hospitalization: Therapy Orders & Screens 05/06/22 21:27 Respiratory Therapy Assessment DAILY Comment: 05/06/22 22:49 RT Screen per Nursing Assess ONCE Comment: Protocol Order Physician Instructions: Greater than 3 points order RT Admission Screen Reason For Exam: Triggered on Admission Diagnosis: PNE Diagnosis: PNE Pneumonia: Yes Home O2: Yes Asthma: No CHF: No Home CPAP/BIPAP: No Home Nebs/MDI: Yes Total Points: 13 05/06/22 23:32 Oxygen Nasal Cannula 3 lpm Comment: Diagnosis: PNE 05/07/22 09:19 Smoking Cessation Education ONCE Comment: Diagnosis: PNE Smoking Status: Current every day smoker How long have you smoked: 20 yrs Have you smoked in the past 12 months: Yes Approximately how many cigarettes per day: 20 Do you dip or chew tobacco: No If,Former Smoker,when did you quit: 5 days ago Discharge Exam General Appearance: no apparent distress, obese (morbidly), other (sitting on side of bed, eating lunch) Neurologic Exam: oriented x 3, cooperative, normal mood/affect Eye Exam: eyes nml inspection Ears, Nose, Throat Exam: moist mucous membranes Neck Exam: normal inspection Respiratory Exam: normal breath sounds, lungs clear, No crackles/rales, No rhonchi, No wheezing Cardiovascular Exam: regular rate/rhythm, normal heart sounds, No murmur Gastrointestinal/Abdomen Exam: soft, normal bowel sounds Extremity Exam: No normal inspection (chronic venous stasis changes bilat) Final Diagnosis/Problem List - Final Discharge Diagnosis/Problem (1) COPD exacerbation Current Visit: Yes Status: Acute Assessment & Plan: Much improved, d/c on augmentin with lactobacillus. Prednisone x 7d. Code(s): J44.1 - CHRONIC OBSTRUCTIVE PULMONARY DISEASE W (ACUTE) EXACERBATION (2) Morbid obesity Current Visit: Yes Status: Chronic Code(s): E66.01 - MORBID (SEVERE) OBESITY DUE TO EXCESS CALORIES (3) Liver disease, chronic, with cirrhosis Current Visit: No Status: Chronic Code(s): K74.60 - UNSPECIFIED CIRRHOSIS OF LIVER; K76.9 - LIVER DISEASE, UNSPECIFIED (4) Thrombocytopenia Current Visit: Yes Status: Chronic - Discharge Disposition: Home, Self-Care Condition: Good Prescriptions: New Lactobacillus Acidophilus [Acidophilus TABLET] 1 tab PO BID #8 tablet Fluticasone/Salmeterol 115/21 [Advair Hfa 115/21 Common canister*] 2 puff IH BIDRT #1 inhaler Amox Tr/Potass Clav. 875 mg [Augmentin 875-125 Tablet] 875 mg PO BID #8 tablet Prednisone 20 mg [Deltasone 20 mg] 20 mg PO DAILY 7 Days #17 tablet Continue Propranolol HCl 40 mg PO DAILY Albuterol Common Canister [Ventolin Common Canister] 2 puffs IH Q4HPRN PRN 30 Days #1 puff PRN Reason: Shortness Of Breath/Wheezing Rifaximin [Xifaxan] 550 mg PO BID 30 Days #60 tablet Potassium Chloride [Klor-Con 8] 8 meq PO DAILY PRN PRN PRN Reason: Muscle Spasms Levothyroxine Sodium 175 mcg PO DAILY OLANZapine [Zyprexa] 20 mg PO DAILY Alprazolam [Xanax] 0.5 mg PO TID Apixaban [Eliquis] 5 mg PO BID #60 tablet Bumetanide 1 mg [Bumex 1 mg] 2 mg PO BID Promethazine HCl 25 mg [Phenergan 25 mg] 25 mg PO Q4H PRN PRN PRN Reason: Nausea Cholestyramine (with Sugar) [Questran Powder] 1 scoop PO DAILY PRN PRN PRN Reason: Diarrhea Metoprolol Tartrate 50 mg [Lopressor 50 MG] 50 mg PO BID Tizanidine HCl 4 mg [Zanaflex 4 MG] 4 mg PO Q8H PRN PRN Reason: Pain Hydroxyzine HCl 25 mg [Atarax 25 mg] 25 mg PO TID PRN PRN Reason: Itching Gabapentin 600 mg PO TID Fluoxetine HCl 20 mg [Prozac 20 MG] 20 mg PO HS Follow up with: KETAN STERN [Primary Care Provider] -
[2022-05-10 15:12] VITALS: PULSE 89; O2SAT 91
== END 2022-05-10 16:02 | disposition home or self-care (01) | DRG 192 ==
LOC: ED 16:32 → MED SURG 21:54
PROVIDERS: ADMIT Family Medicine; ATTEND Family Medicine
DX: J44.1 Chronic obstructive pulmonary disease with (acute) exacerbation (principal); E66.01 Morbid (severe) obesity due to excess calories; K74.60 Unspecified cirrhosis of liver; D69.6 Thrombocytopenia, unspecified; Z79.899 Other long term (current) drug therapy
CPT/HCPCS: 0241U; 36415; 71045; 71260; 80048; 80053; 83036; 83605; 83880; 84484; 85025; 85027; 85379; 87040; 87070; 94640; 94762; 96360; 96365; 96374; 96375; 99284; G0008; 90686; J0456; J0696; J2920; J2930; J7609; A9270-GY; J3370

== ENCOUNTER 2022-05-21 17:54 | Emergency (ER) | payer MEDICARE ==
[2022-05-21] MEDS ORDERED: DUONEB 0.5-3 MG/3 ml Neb IH ONE ×4 (17:57→18:51)
--- NOTE | 2022-05-21 17:59 | ERPHSYRPT ---
- History of Present Illness Time Seen by Provider: 05/21/22 17:58 Source: patient Exam Limitations: no limitations Physician History: This is a morbidly obese 51-year-old white male patient of Dr. Stern who has history of atrial fibrillation, hypertension, coronary artery disease, asthma, bronchitis, CHF, COPD, recurrent pneumonias, hepatitis, cirrhosis, bipolar dis ease, anxiety, hypothyroidism and hyperlipidemia and presents with 2-week history of intermittent shortness of breath and recurrent pneumonias. His symptoms of shortness of breath worsened today. He has completed his antibiotic treatment. Patient was last discharged to home on May 10, 2022. Patient does not have chest pain. He denies abdominal pain. He said no fevers. He has had no nausea vomiting or diarrhea. Patient presents to the emergency department with hypoxia and his room air oxygenation level in the 83 to 89% range. Patient is taking Eliquis. His client account assistant is Keenan Fierro Timing/Duration: week(s), intermittent, worse Severity of Dyspnea-Max: moderate Severity of Dyspnea-Current: moderate Possible Cause: frequent episodes Modifying Factors: Improves With: albuterol nebulizer, oxygen, rest Associated Symptoms: anxiety, heart racing, No chest pain/discomfort Allergies/Adverse Reactions: nitrofurantoin [From Macrobid] Allergy (Verified 05/21/22 17:56) Rash adhesive tape Adverse Reaction (Verified 05/21/22 17:56) Home Medications: Propranolol HCl 40 mg PO DAILY 11/04/18 [History] Alprazolam [Xanax] 0.5 mg PO TID 03/05/21 [History] Levothyroxine Sodium 175 mcg PO DAILY 03/05/21 [History] OLANZapine [Zyprexa] 20 mg PO DAILY 03/05/21 [History] Potassium Chloride [Klor-Con 8] 8 meq PO DAILY PRN PRN 03/05/21 [History] Bumetanide 1 mg [Bumex 1 mg] 2 mg PO BID 03/24/22 [History] Cholestyramine (with Sugar) [Questran Powder] 1 scoop PO DAILY PRN PRN 03/24/22 [History] Gabapentin 600 mg PO TID 05/01/22 [History] Hydroxyzine HCl 25 mg [Atarax 25 mg] 25 mg PO TID PRN 05/01/22 [History] Metoprolol Tartrate 50 mg [Lopressor 50 MG] 50 mg PO BID 05/01/22 [History] Tizanidine HCl 4 mg [Zanaflex 4 MG] 4 mg PO Q8H PRN 05/01/22 [History] Fluoxetine HCl 20 mg [Prozac 20 MG] 20 mg PO HS 05/06/22 [History] Hx Tetanus, Diphtheria Vaccination/Date Given: Yes Hx Influenza Vaccination/Date Given: Yes Hx Pneumococcal Vaccination/Date Given: No Travel Risk - International Travel Have you traveled outside of the country in past 3 weeks: No - Coronavirus Screening Are you exhibiting any of the following symptoms?: No Close contact with a COVID-19 positive Pt in past 14-21 Days: No - Vaccine Status Have you recieved a Covid-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[employer]: [employer] - Vaccination Dates Date of 2cond Vaccination (if applicable): 2020 - Review of Systems Constitutional: No Symptoms Eyes: No Symptoms Ears, Nose, & Throat: No Symptoms Respiratory: Dyspnea Cardiac: Palpitations Abdominal/Gastrointestinal: No Symptoms Genitourinary Symptoms: No Symptoms Musculoskeletal: No Symptoms Skin: No Symptoms Neurological: No Symptoms Psychological: No Symptoms Endocrine: No Symptoms Hematologic/Lymphatic: No Symptoms Immunological/Allergic: No Symptoms All Other Systems: Reviewed and Negative - Past Medical History Pertinent Past Medical History: Yes Neurological History: No Pertinent History ENT History: No Pertinent History Cardiac History: Arrhythmia, Coronary Artery Disease, Hypertension Respiratory History: Asthma, Bronchitis, CHF, COPD, Pneumonia Endocrine Medical History: Hypothyroidism Musculoskeletal History: Osteoarthritis GI Medical History: Hepatitis, Cirrhosis History: No Pertinent History Psycho-Social History: Anxiety, Bipolar, Depression Male Reproductive Disorders: No Pertinent History Other Medical History: frequent cellulitis in lower extremities - Past Surgical History Past Surgical History: Yes Neuro Surgical History: No Pertinent History Cardiac: No Pertinent History, Cardiac Catheterization Respiratory: No Pertinent History Gastrointestinal: Cholecystectomy Genitourinary: No Pertinent History Musculoskeletal: Orthopedic Surgery Male Surgical History: No Pertinent History Other Surgical History: rt knee,. had cath 5 or 6 years ago. - Social History Smoking Status: Current every day smoker How long have you smoked: 20 yrs Exposure to second hand smoke: Yes Drug Use: none Patient Lives Alone: No - Nursing Vital Signs Nursing Vital Signs: Initial Vital Signs Temperature 97.2 F 05/21/22 17:59 Pulse Rate 101 H 05/21/22 17:59 Blood Pressure 180/166 05/21/22 17:59 O2 Sat by Pulse Oximetry 83 L 05/21/22 17:59 Pain Scale Pain Intensity 0 - Physical Exam General Appearance: mild distress, alert, anxiety, obese Eye Exam: PERRL/EOMI, eyes nml inspection Ears, Nose, Throat Exam: hearing grossly normal, normal ENT inspection, normal pharynx Neck Exam: normal inspection, non-tender, supple, full range of motion Respiratory Exam: respiratory distress, airway intact, diminished breath sounds (Bilateral bases), No chest tenderness Cardiovascular/Chest Exam: tachycardia Abdominal/Gastrointestinal Exam: soft, normal bowel sounds, No tenderness Rectal Exam: not done Extremity Exam: non-tender, normal range of motion, pedal edema (Patient has significant bilateral lower extremity chronic venous stasis disease) Neurologic Exam: alert, oriented x 3, cooperative, insurance claims clerk II-XII nml as tested, other (Anxious) Skin Exam: normal color, warm, dry Lymphatic Exam: No adenopathy SpO2 Interpretation: normal O2 Delivery: Room Air - Course Nursing assessment & vital signs reviewed: Yes EKG Interpreted by Me: RATE (98), A-fib, NORMAL INTERVALS, NORMAL QRS, NORMAL ST-T, Other (No acute ischemic changes) Ordered Tests: Active Orders 24 hr Category Date Time Status Licensed Psychiatric Technician STAT Care 05/21/22 18:12 Active EKG-ER Only STAT Care 05/21/22 18:12 Active IV Insertion STAT Care 05/21/22 18:12 Active Pulse Oximetry (ED) STAT Care 05/21/22 18:12 Active CHEST 1 VIEW (PORTABLE) Stat Exams 05/21/22 18:12 Taken CHEST WITH CONTRAST [CT] Stat Exams 05/21/22 19:37 Ordered ARTERIAL BLOOD GASES Stat Lab 05/21/22 18:23 Completed BLOOD CULTURE Stat Lab 05/21/22 18:26 Received CBC W DIFF Stat Lab 05/21/22 18:11 Completed CMP Stat Lab 05/21/22 18:11 Completed D-DIMER QUANTITATIVE Stat Lab 05/21/22 18:11 Completed Lactic Acid Stat Lab 05/21/22 18:23 Completed [place] Screen Stat Lab 05/21/22 18:11 Completed NT PRO BNP Stat Lab 05/21/22 18:11 Completed T4 (Thyroxine) Stat Lab 05/21/22 18:36 Received TROPONIN Q4H Lab 05/21/22 18:11 Completed TROPONIN Q4H Lab 05/21/22 22:15 Ordered TROPONIN Q4H Lab 05/22/22 02:15 Ordered TSH [TSH, 3RD Generation] Stat Lab 05/21/22 18:36 Received UA W/RFX CULTURE Stat Lab 05/21/22 20:09 Completed BiPap/CPAP STAT RT 05/21/22 18:12 Active Respiratory Therapy Assessment ONCE RT 05/21/22 18:08 Active Medication Summary Discontinued Medications Generic Name Dose Route Start Last Admin Trade Name Freq PRN Reason Stop Dose Admin Albuterol/Ipratropium Confirm 05/21/22 17:57 Ipratropium/Albuterol Sulfate 3 Ml Ampul.Neb Administered 05/21/22 17:58 Dose 3 ml IH .STK-MED ONE Albuterol/Ipratropium 3 ml 05/21/22 18:00 05/21/22 18:09 Ipratropium/Albuterol Sulfate 3 Ml Ampul.Neb IH 05/21/22 18:01 3 ml STAT ONE Administration Albuterol/Ipratropium Confirm 05/21/22 18:30 Ipratropium/Albuterol Sulfate 3 Ml Ampul.Neb Administered 05/21/22 18:31 Dose 3 ml IH .STK-MED ONE Albuterol/Ipratropium 3 ml 05/21/22 18:51 05/21/22 18:52 Ipratropium/Albuterol Sulfate 3 Ml Ampul.Neb IH 05/21/22 18:52 3 ml STAT ONE Administration Bumetanide 1 mg 05/21/22 19:38 05/21/22 19:59 Bumetanide 0.25 Mg/Ml 4ml Vial IV 05/21/22 19:39 1 mg STAT ONE Administration Bumetanide Confirm 05/21/22 19:55 Bumetanide 0.25 Mg/Ml 4ml Vial Administered 05/21/22 19:56 Dose 1 mg .ROUTE .STK-MED ONE Methylprednisolone Sodium 0 mg 05/21/22 18:12 05/21/22 18:40 Succinate 125 mg/ Sterile IV 05/21/22 18:13 125 mg Water 2 ml STAT ONE Administration Methylprednisolone Sodium Succinate Confirm 05/21/22 18:36 Methylprednis Sod Succ 125 Mg/2 Ml Vial Administered 05/21/22 18:37 Dose 125 mg .ROUTE .STK-MED ONE Metoprolol Tartrate 5 mg 05/21/22 19:39 Metoprolol Tartrate 5 Mg/5 Ml Vial IV 05/21/22 19:40 STAT ONE Metoprolol Tartrate Confirm 05/21/22 19:55 Metoprolol Tartrate 5 Mg/5 Ml Vial Administered 05/21/22 19:56 Dose 5 mg IV .STK-MED ONE Sterile Water Confirm 05/21/22 18:36 Water For Injection,Sterile 10 Ml Vial Administered 05/21/22 18:37 Dose 10 ml IJ .STK-MED ONE Lab/Rad Data: Laboratory Result Diagrams 05/21/22 18:11 05/21/22 18:11 Laboratory Results 05/21/22 05/21/22 05/21/22 Range/Units 20:09 18:33 18:33 WBC (4.0-10.5) x10^3/uL RBC (4.1-5.6) x10^6/uL Hgb (12.5-18.0) g/dL Hct (42-50) % MCV (78-100) fL MCH (26-32) pg MCHC (32-36) g/dL RDW (11.5-14.0) % Plt Count (150-450) x10^3/uL MPV (7.5-11.0) fL Gran % (36.0-66.0) % Immature Gran % (Auto) (0.00-0.4) % Nucleat RBC Rel Count (0.00-0.1) % Eos # (Auto) (0-0.5) x10^3/uL Immature Gran # (Auto) (0.00-0.03) x10^3u/L Absolute Lymphs (auto) (1.0-4.6) x10^3/uL Absolute Monos (auto) (0.0-1.3) x10^3/uL Absolute Nucleated RBC (0.00-0.01) x10^3u/L Lymphocytes % (24.0-44.0) % Monocytes % (0.0-12.0) % Eosinophils % (0.00-5.0) % Basophils % (0.0-0.4) % Absolute Granulocytes (1.4-6.9) x10^3/uL Basophils # (0-0.4) x10^3/uL D-Dimer (0.0-0.50) mg/L Puncture Site pCO2 (35-45) mmHg pO2 (75-100) mmHg Base Excess (-2.0-2.0) O2 Saturation (94-100) g/dF ABG pH (7.35-7.45) ABG HCO3 (22-28) ABG O2 Sat (Measured) (95-100) % Gideon Test A-a Gradient a/A Ratio Hemoglobin Carboxyhemoglobin (0.0-6.9) % THgb Methemoglobin (1.4-1.5) % Temperature C POC O2 Flow Rate % Sodium (137-145) mmol/L Potassium (3.5-5.1) mmol/L Chloride (98-107) mmol/L Carbon Dioxide (22-30) mmol/L Anion Gap (5-15) MEQ/L BUN (9-20) mg/dL Creatinine (0.66-1.25) mg/dL Estimated GFR ML/MIN Glucose (74-106) mg/dL Lactic Acid (0.4-2.0) Calcium (8.4-10.2) mg/dL Total Bilirubin (0.2-1.3) mg/dL AST (17-59) U/L ALT (0-50) U/L Alkaline Phosphatase (38-126) U/L Troponin I (0.000-0.034) ng/mL NT-Pro-B Natriuret Pep (0-900) pg/mL Serum Total Protein (6.3-8.2) g/dL Albumin (3.5-5.0) g/dL Urinalys Dipstick Clnc MAIN LAB Urine Color YELLOW (YELLOW) Urine Appearance CLEAR (CLEAR) Urine pH 6.5 (5-6) Ur Specific [place] 1.010 (1.005-1.025) POC Urine Protein Conf 30 (Negative) Urine Ketones NEGATIVE (NEGATIVE) Urine Nitrite NEGATIVE (NEGATIVE) Urine Bilirubin NEGATIVE (NEGATIVE) Urine Urobilinogen 1 (0-1) mg/dL Urine Leukocytes NEGATIVE (NEGATIVE) Urine WBC (Auto) 3-5 (0-5) /HPF Urine RBC (Auto) 0-2 (0-2) /HPF U Epithel Cells (Auto) RARE (FEW) /HPF Urine Bacteria (Auto) RARE (NEGATIVE) /HPF Urine RBC TRACE-INTACT (0-5) Christopher/ul Ur Culture Indicated? NO Urine Glucose NEGATIVE (NEGATIVE) mg/dL Monoscreen (Negative) Influenza Type A Ag NEGATIVE (NEGATIVE) Influenza Type B Ag NEGATIVE (NEGATIVE) RSV (PCR) NEGATIVE (Negative) SARS-CoV-2 (PCR) NEGATIVE (NEGATIVE) Group A Strep Antibody NOT DETECTED (NEGATIVE) 05/21/22 05/21/22 05/21/22 Range/Units 18:23 18:23 18:11 WBC (4.0-10.5) x10^3/uL RBC (4.1-5.6) x10^6/uL Hgb (12.5-18.0) g/dL Hct (42-50) % MCV (78-100) fL MCH (26-32) pg MCHC (32-36) g/dL RDW (11.5-14.0) % Plt Count (150-450) x10^3/uL MPV (7.5-11.0) fL Gran % (36.0-66.0) % Immature Gran % (Auto) (0.00-0.4) % Nucleat RBC Rel Count (0.00-0.1) % Eos # (Auto) (0-0.5) x10^3/uL Immature Gran # (Auto) (0.00-0.03) x10^3u/L Absolute Lymphs (auto) (1.0-4.6) x10^3/uL Absolute Monos (auto) (0.0-1.3) x10^3/uL Absolute Nucleated RBC (0.00-0.01) x10^3u/L Lymphocytes % (24.0-44.0) % Monocytes % (0.0-12.0) % Eosinophils % (0.00-5.0) % Basophils % (0.0-0.4) % Absolute Granulocytes (1.4-6.9) x10^3/uL Basophils # (0-0.4) x10^3/uL D-Dimer (0.0-0.50) mg/L Puncture Site LEFT RADIAL pCO2 53 H (35-45) mmHg pO2 76 (75-100) mmHg Base Excess 2.5 H (-2.0-2.0) O2 Saturation 88.6 L (94-100) g/dF ABG pH 7.35 (7.35-7.45) ABG HCO3 29.3 H* (22-28) ABG O2 Sat (Measured) 96.9 (95-100) % Gideon Test YES A-a Gradient 57 a/A Ratio 0.57 Hemoglobin 17.1 Carboxyhemoglobin 7.7 H* (0.0-6.9) % THgb Methemoglobin 0.9 L (1.4-1.5) % Temperature 37.0 C POC O2 Flow Rate 28 % Sodium (137-145) mmol/L Potassium 4.4 (3.5-5.1) mmol/L Chloride (98-107) mmol/L Carbon Dioxide (22-30) mmol/L Anion Gap (5-15) MEQ/L BUN (9-20) mg/dL Creatinine (0.66-1.25) mg/dL Estimated GFR ML/MIN Glucose (74-106) mg/dL Lactic Acid 1.6 (0.4-2.0) Calcium (8.4-10.2) mg/dL Total Bilirubin (0.2-1.3) mg/dL AST (17-59) U/L ALT (0-50) U/L Alkaline Phosphatase (38-126) U/L Troponin I (0.000-0.034) ng/mL NT-Pro-B Natriuret Pep (0-900) pg/mL Serum Total Protein (6.3-8.2) g/dL Albumin (3.5-5.0) g/dL Urinalys Dipstick Clnc Urine Color (YELLOW) Urine Appearance (CLEAR) Urine pH (5-6) Ur Specific [place] (1.005-1.025) POC Urine Protein Conf (Negative) Urine Ketones (NEGATIVE) Urine Nitrite (NEGATIVE) Urine Bilirubin (NEGATIVE) Urine Urobilinogen (0-1) mg/dL Urine Leukocytes (NEGATIVE) Urine WBC (Auto) (0-5) /HPF Urine RBC (Auto) (0-2) /HPF U Epithel Cells (Auto) (FEW) /HPF Urine Bacteria (Auto) (NEGATIVE) /HPF Urine RBC (0-5) Christopher/ul Ur Culture Indicated? Urine Glucose (NEGATIVE) mg/dL Monoscreen NEGATIVE (Negative) Influenza Type A Ag (NEGATIVE) Influenza Type B Ag (NEGATIVE) RSV (PCR) (Negative) SARS-CoV-2 (PCR) (NEGATIVE) Group A Strep Antibody (NEGATIVE) 05/21/22 05/21/22 05/21/22 Range/Units 18:11 18:11 18:11 WBC (4.0-10.5) x10^3/uL RBC (4.1-5.6) x10^6/uL Hgb (12.5-18.0) g/dL Hct (42-50) % MCV (78-100) fL MCH (26-32) pg MCHC (32-36) g/dL RDW (11.5-14.0) % Plt Count (150-450) x10^3/uL MPV (7.5-11.0) fL Gran % (36.0-66.0) % Immature Gran % (Auto) (0.00-0.4) % Nucleat RBC Rel Count (0.00-0.1) % Eos # (Auto) (0-0.5) x10^3/uL Immature Gran # (Auto) (0.00-0.03) x10^3u/L Absolute Lymphs (auto) (1.0-4.6) x10^3/uL Absolute Monos (auto) (0.0-1.3) x10^3/uL Absolute Nucleated RBC (0.00-0.01) x10^3u/L Lymphocytes % (24.0-44.0) % Monocytes % (0.0-12.0) % Eosinophils % (0.00-5.0) % Basophils % (0.0-0.4) % Absolute Granulocytes (1.4-6.9) x10^3/uL Basophils # (0-0.4) x10^3/uL D-Dimer 0.68 H* (0.0-0.50) mg/L Puncture Site pCO2 (35-45) mmHg pO2 (75-100) mmHg Base Excess (-2.0-2.0) O2 Saturation (94-100) g/dF ABG pH (7.35-7.45) ABG HCO3 (22-28) ABG O2 Sat (Measured) (95-100) % Gideon Test A-a Gradient a/A Ratio Hemoglobin Carboxyhemoglobin (0.0-6.9) % THgb Methemoglobin (1.4-1.5) % Temperature C POC O2 Flow Rate % Sodium 140 (137-145) mmol/L Potassium 4.5 (3.5-5.1) mmol/L Chloride 105 (98-107) mmol/L Carbon Dioxide 31 H (22-30) mmol/L Anion Gap 8.5 (5-15) MEQ/L BUN 17 (9-20) mg/dL Creatinine 0.72 (0.66-1.25) mg/dL Estimated GFR > 60.0 ML/MIN Glucose 202 H (74-106) mg/dL Lactic Acid (0.4-2.0) Calcium 8.6 (8.4-10.2) mg/dL Total Bilirubin 1.30 (0.2-1.3) mg/dL AST 36 (17-59) U/L ALT 37 (0-50) U/L Alkaline Phosphatase 109 (38-126) U/L Troponin I 0.074 H* (0.000-0.034) ng/mL NT-Pro-B Natriuret Pep 987 H (0-900) pg/mL Serum Total Protein 6.9 (6.3-8.2) g/dL Albumin 3.6 (3.5-5.0) g/dL Urinalys Dipstick Clnc Urine Color (YELLOW) Urine Appearance (CLEAR) Urine pH (5-6) Ur Specific [place] (1.005-1.025) POC Urine Protein Conf (Negative) Urine Ketones (NEGATIVE) Urine Nitrite (NEGATIVE) Urine Bilirubin (NEGATIVE) Urine Urobilinogen (0-1) mg/dL Urine Leukocytes (NEGATIVE) Urine WBC (Auto) (0-5) /HPF Urine RBC (Auto) (0-2) /HPF U Epithel Cells (Auto) (FEW) /HPF Urine Bacteria (Auto) (NEGATIVE) /HPF Urine RBC (0-5) Christopher/ul Ur Culture Indicated? Urine Glucose (NEGATIVE) mg/dL Monoscreen (Negative) Influenza Type A Ag (NEGATIVE) Influenza Type B Ag (NEGATIVE) RSV (PCR) (Negative) SARS-CoV-2 (PCR) (NEGATIVE) Group A Strep Antibody (NEGATIVE) 05/21/22 Range/Units 18:11 WBC 9.6 (4.0-10.5) x10^3/uL RBC 5.44 (4.1-5.6) x10^6/uL Hgb 16.8 (12.5-18.0) g/dL Hct 53.6 H (42-50) % MCV 98.5 (78-100) fL MCH 30.9 (26-32) pg MCHC 31.3 L (32-36) g/dL RDW 17.5 H (11.5-14.0) % Plt Count 59 L (150-450) x10^3/uL MPV 11.4 H (7.5-11.0) fL Gran % 86.0 H (36.0-66.0) % Immature Gran % (Auto) 1.0 H (0.00-0.4) % Nucleat RBC Rel Count 0.0 (0.00-0.1) % Eos # (Auto) 0.03 (0-0.5) x10^3/uL Immature Gran # (Auto) 0.10 H (0.00-0.03) x10^3u/L Absolute Lymphs (auto) 0.69 L (1.0-4.6) x10^3/uL Absolute Monos (auto) 0.48 (0.0-1.3) x10^3/uL Absolute Nucleated RBC 0.00 (0.00-0.01) x10^3u/L Lymphocytes % 7.2 L (24.0-44.0) % Monocytes % 5.0 (0.0-12.0) % Eosinophils % 0.3 (0.00-5.0) % Basophils % 0.5 (0.0-0.4) % Absolute Granulocytes 8.23 H (1.4-6.9) x10^3/uL Basophils # 0.05 (0-0.4) x10^3/uL D-Dimer (0.0-0.50) mg/L Puncture Site pCO2 (35-45) mmHg pO2 (75-100) mmHg Base Excess (-2.0-2.0) O2 Saturation (94-100) g/dF ABG pH (7.35-7.45) ABG HCO3 (22-28) ABG O2 Sat (Measured) (95-100) % Gideon Test A-a Gradient a/A Ratio Hemoglobin Carboxyhemoglobin (0.0-6.9) % THgb Methemoglobin (1.4-1.5) % Temperature C POC O2 Flow Rate % Sodium (137-145) mmol/L Potassium (3.5-5.1) mmol/L Chloride (98-107) mmol/L Carbon Dioxide (22-30) mmol/L Anion Gap (5-15) MEQ/L BUN (9-20) mg/dL Creatinine (0.66-1.25) mg/dL Estimated GFR ML/MIN Glucose (74-106) mg/dL Lactic Acid (0.4-2.0) Calcium (8.4-10.2) mg/dL Total Bilirubin (0.2-1.3) mg/dL AST (17-59) U/L ALT (0-50) U/L Alkaline Phosphatase (38-126) U/L Troponin I (0.000-0.034) ng/mL NT-Pro-B Natriuret Pep (0-900) pg/mL Serum Total Protein (6.3-8.2) g/dL Albumin (3.5-5.0) g/dL Urinalys Dipstick Clnc Urine Color (YELLOW) Urine Appearance (CLEAR) Urine pH (5-6) Ur Specific [place] (1.005-1.025) POC Urine Protein Conf (Negative) Urine Ketones (NEGATIVE) Urine Nitrite (NEGATIVE) Urine Bilirubin (NEGATIVE) Urine Urobilinogen (0-1) mg/dL Urine Leukocytes (NEGATIVE) Urine WBC (Auto) (0-5) /HPF Urine RBC (Auto) (0-2) /HPF U Epithel Cells (Auto) (FEW) /HPF Urine Bacteria (Auto) (NEGATIVE) /HPF Urine RBC (0-5) Christopher/ul Ur Culture Indicated? Urine Glucose (NEGATIVE) mg/dL Monoscreen (Negative) Influenza Type A Ag (NEGATIVE) Influenza Type B Ag (NEGATIVE) RSV (PCR) (Negative) SARS-CoV-2 (PCR) (NEGATIVE) Group A Strep Antibody (NEGATIVE) - Progress Progress: improved, re-examined Air Movement: fair Progress Note: 05/21/22 20:47 Medical decision making: This patient has multiple medical issues. His client account assistant practices out of [facility]. I spoke with Dr. Jimenez the emergency room doctor at [facility]. He accepts the patient in transfer. Blood Culture(s) Obtained: Yes Antibiotics given: Yes Counseled pt/family regarding: lab results, diagnosis, rad results - Departure Departure Disposition: Transfer Clinical Impression: Hypoxia, Shortness of breath, Atrial fibrillation, Opacities of both lungs present on chest x-ray, Elevated troponin, Thrombocytopenia, CHF (congestive heart failure) Condition: Fair Critical Care Time: Yes Critical Care Time(excluding separately billable procedures): Critical 30-74 mins (30 minutes) Referrals: KETAN STERN [Primary Care Provider] - Follow up/PCP as directed Instructions: Heart Failure
[2022-05-21] MEDS ORDERED: solu-MEDROL 125 MG, Sterile H2O 10 ml 2 ML IV ONE ×2 (18:12)
[2022-05-21 18:36] LABS: A-aADO2 57; ABG HEMOGLOBIN 17.1; ABG POTASSIUM 4.4 (3.5-5.1); ARTERIAL BLD GAS O2 SATURATION 96.9 % (95-100); ARTERIAL BLOOD GAS BASE EXCESS 2.5 (-2.0-2.0); ARTERIAL BLOOD GAS FIO2 28 %; ARTERIAL BLOOD GAS PCO2 53 mmHg (35-45); ARTERIAL BLOOD GAS PO2 76 mmHg (75-100); ARTERIAL BLOOD GAS pH 7.35 (7.35-7.45); CARBOXYHEMOGLOBIN 7.7 % THgb (0.0-6.9); HCO3- 29.3 (22-28); HGB O2 SAT 88.6 g/dF (94-100); Methhemoglobin 0.9 % (1.4-1.5)
[2022-05-21] MEDS ORDERED: Sterile H2O 10 ml IJ ONE (18:36)
[2022-05-21] MEDS ORDERED: solu-MEDROL ONE (18:36)
[2022-05-21 18:37] LABS: ABG SITE LEFT RADIAL; ALLEN TEST OK? YES
[2022-05-21 18:50] LABS: Absolute Neutrophil Ct (ANC) 8.23 x10^3/uL (1.4-6.9); Basophil (Absolute #) 0.05 x10^3/uL (0-0.4); Eosinophil % 0.3 % (0.00-5.0); Eosinophil (Absolute #) 0.03 x10^3/uL (0-0.5); Hematocrit 53.6 % (42-50); Hemoglobin 16.8 g/dL (12.5-18.0); Lymphocyte (Absolute #) 0.69 x10^3/uL (1.0-4.6); Lymphocytes % 7.2 % (24.0-44.0); Mean Cell Volume 98.5 fL (78-100); Mean Corpuscular Hemoglobin 30.9 pg (26-32); Mean Corpuscular Hgb Concent. 31.3 g/dL (32-36); Mean Platelet Volume 11.4 fL (7.5-11.0); Monocyte (Absolute #) 0.48 x10^3/uL (0.0-1.3); Platelet Count 59 x10^3/uL (150-450); Red Blood Count 5.44 x10^6/uL (4.1-5.6); Red Cell Distribution Width 17.5 % (11.5-14.0); White Blood Count 9.6 x10^3/uL (4.0-10.5)
[2022-05-21 19:19] LABS: INFLUENZA A NEGATIVE (NEGATIVE); INFLUENZA B NEGATIVE (NEGATIVE); RESPIRATORY SYNCTIAL VIRUS NEGATIVE (Negative); SARS-CoV-2 Xpert Express NEGATIVE (NEGATIVE)
[2022-05-21 19:19] LABS: ALBUMIN 3.6 g/dL (3.5-5.0); ALKALINE PHOSPHATASE 109 U/L (38-126); ANION GAP 8.5 MEQ/L (5-15); BLOOD UREA NITROGEN 17 mg/dL (9-20); CHLORIDE 105 mmol/L (98-107); Calcium 8.6 mg/dL (8.4-10.2); Carbon Dioxide 31 mmol/L (22-30); Creatinine 1 0.72 mg/dL (0.66-1.25); EST GLOMERULAR FILTRATION RATE > 60.0 ML/MIN; Glucose 202 mg/dL (74-106); NT PRO BNP 987 pg/mL (0-900); Potassium 4.5 mmol/L (3.5-5.1); SGOT/AST 36 U/L (17-59); SGPT/ALT 37 U/L (0-50); SODIUM 140 mmol/L (137-145); Total Protein 6.9 g/dL (6.3-8.2)
[2022-05-21] MEDS ORDERED: BUMEX 1 MG IV ONE (19:38)
[2022-05-21] MEDS ORDERED: LOPRESSOR INJECTION IV ONE ×2 (19:39→19:55)
[2022-05-21] MEDS ORDERED: BUMEX 1 MG ONE (19:55)
[2022-05-21 20:22] VITALS: BP 135/86; PULSE 105; O2SAT 95
[2022-05-21 20:33] LABS: Appearance CLEAR (CLEAR); Bilirubin NEGATIVE (NEGATIVE); Dipstick done @ ? MAIN LAB; Glucose NEGATIVE (NEGATIVE); Ketones NEGATIVE (NEGATIVE); Nitrite NEGATIVE (NEGATIVE); Ph 6.5 (5-6); Protein,Urine Dip 30 (Negative); RBC TRACE-INTACT Ery/ul (0-5); Urobilinogen 1 mg/dL (0-1)
[2022-05-21 20:34] LABS: Bacteria RARE /HPF (NEGATIVE); Epithelial Cells RARE /HPF (FEW); RBC 0-2 /HPF (0-2); Urine Cultured Indicated? NO
[2022-05-21 21:03] LABS: T4 (Thyroxine) 8.41 ug/dL (5.53-10.96); TSH, 3RD Generation 1.01 mIU/L (0.47-4.68)
--- NOTE | 2022-05-22 08:48 | XRAY ---
Indication: Short of breath. Comparison: May 06, 2022 Portable chest demonstrates mild clearing of previous right infrahilar and diffuse patchy left lung airspace disease which still persists. No consolidation/large effusion. Heart not enlarged. No new cardiopulmonary abnormalities.
== END 2022-05-21 21:15 | disposition short-term general hospital (02) ==
LOC: ED 17:54
DX: I11.0 Hypertensive heart disease with heart failure (principal); I50.9 Heart failure, unspecified; R09.02 Hypoxemia; R06.02 Shortness of breath; I48.91 Unspecified atrial fibrillation; R91.8 Other nonspecific abnormal finding of lung field; R77.8 Other specified abnormalities of plasma proteins; D69.6 Thrombocytopenia, unspecified; J44.9 Chronic obstructive pulmonary disease, unspecified; E78.5 Hyperlipidemia, unspecified; Z72.0 Tobacco use; Z79.01 Long term (current) use of anticoagulants; Z79.899 Other long term (current) drug therapy; Z20.828 Contact with and (suspected) exposure to other viral communicable diseases
CPT/HCPCS: 0241U; 36000; 36415; 36600; 71045; 80053; 81015; 82375; 82803; 83605; 83880; 84436; 84443; 84484; 85025; 85379; 86308; 87040; 87651; 93005; 93041; 94002; 94640; 94760; 96374; 96375; 99285; 99291; J2930; A9270-GY

== ENCOUNTER 2022-08-11 17:32 | Inpatient (IN) | payer MEDICARE ==
[2022-08-11] MEDS ORDERED: DUONEB 0.5-3 MG/3 ml Neb IH ONE (17:38)
[2022-08-11 18:09] LABS: Basophil (Absolute #) 0.08 x10^3/uL (0-0.4); Eosinophil % 1.3 % (0.00-5.0); Eosinophil (Absolute #) 0.09 x10^3/uL (0-0.5); Hematocrit 56.6 % (42-50); Hemoglobin 17.5 g/dL (12.5-18.0); Lymphocyte (Absolute #) 1.05 x10^3/uL (1.0-4.6); Lymphocytes % 15.6 % (24.0-44.0); Mean Cell Volume 96.1 fL (78-100); Mean Corpuscular Hemoglobin 29.7 pg (26-32); Mean Corpuscular Hgb Concent. 30.9 g/dL (32-36); Mean Platelet Volume 11.2 fL (7.5-11.0); Monocyte (Absolute #) 0.77 x10^3/uL (0.0-1.3); Monocytes % 11.4 % (0.0-12.0); Neutrophil % 69.9 % (36.0-66.0); Platelet Count 106 x10^3/uL (150-450); Red Blood Count 5.89 x10^6/uL (4.1-5.6); Red Cell Distribution Width 14.9 % (11.5-14.0); White Blood Count 6.7 x10^3/uL (4.0-10.5)
[2022-08-11 18:38] LABS: ALBUMIN 3.7 g/dL (3.5-5.0); ALKALINE PHOSPHATASE 101 U/L (38-126); ANION GAP 5.4 MEQ/L (5-15); BLOOD UREA NITROGEN 8 mg/dL (9-20); CHLORIDE 100 mmol/L (98-107); Calcium 8.5 mg/dL (8.4-10.2); Carbon Dioxide 36 mmol/L (22-30); Cholesterol 164 mg/dL (50-200); Creatinine 1 0.62 mg/dL (0.66-1.25); EST GLOMERULAR FILTRATION RATE > 60.0 ML/MIN; Glucose 125 mg/dL (74-106); HDL CHOLESTEROL 34 mg/dL (40-60); LDL, DIRECT 106 mg/dL (30-100); NT PRO BNP 790 pg/mL (0-900); Potassium 3.9 mmol/L (3.5-5.1); Risk Ratio 4.9; SGOT/AST 33 U/L (17-59); SGPT/ALT 19 U/L (0-50); SODIUM 137 mmol/L (137-145); TRIGLYCERIDE 100 mg/dL (30-150); Total Protein 7.7 g/dL (6.3-8.2)
--- NOTE | 2022-08-11 18:39 | ERPHSYRPT ---
- History of Present Illness Source: patient Exam Limitations: clinical condition Patient Subjective Stated Complaint: pt here for increase sob since yesterday, with cough and congestion, Triage Nursing Assessment: pt arrived per wc from clinic with sat of 79%, pt wears home o2 at night only, alert, resp labored, skin w/d/p. has swelling to lower legs, lungs with rales heard, pt placed on oximask Timing/Duration: yesterday Activities at Onset: activity Severity of Dyspnea-Max: moderate Severity of Dyspnea-Current: moderate Possible Cause: frequent episodes, smoke exposure Modifying Factors: Improves With: coughing Associated Symptoms: cough, No chest pain/discomfort Hx Tetanus, Diphtheria Vaccination/Date Given: Yes Hx Influenza Vaccination/Date Given: Yes Hx Pneumococcal Vaccination/Date Given: No Immunizations Up to Date: Yes <TD MONDRAGON - Last Filed: 08/11/22 19:05> <RICHARD HE - Last Filed: 08/11/22 22:32> - History of Present Illness Time Seen by Provider: 08/11/22 17:45 Physician History: This is a morbidly obese 52-year-old white male patient of Dr. Echevarria who is oxygen dependent at night for sleep apnea and COPD. Patient has a history of atrial fibrillation, hypertension, coronary artery disease, bronchitis, CHF, recurrent pneumonias and hypothyroidism. He is a current daily smoker of cigarettes. Patient states that several members of family have been ill with viral/flulike illnesses. He began having cough and congestion yesterday and worsening shortness of breath. He does not know what his normal room air oxygenation level is. However he does know that when he wears his oxygen at night he runs approximately 93 to 94%. Patient went to [facility] care prior to arrival to the emergency department was found to have a room air oxygenation saturation level 79%. (TD MONDRAGON) Allergies/Adverse Reactions: nitrofurantoin [From Macrobid] Allergy (Verified 08/11/22 17:43) Rash adhesive tape Adverse Reaction (Verified 08/11/22 17:43) Home Medications: Propranolol HCl 40 mg PO DAILY 11/04/18 [History] Alprazolam [Xanax] 0.5 mg PO TID 03/05/21 [History] Levothyroxine Sodium 175 mcg PO DAILY 03/05/21 [History] OLANZapine [Zyprexa] 20 mg PO DAILY 03/05/21 [History] Potassium Chloride [Klor-Con 8] 8 meq PO DAILY PRN PRN 03/05/21 [History] Bumetanide 1 mg [Bumex 1 mg] 2 mg PO BID 03/24/22 [History] Cholestyramine (with Sugar) [Questran Powder] 1 scoop PO DAILY PRN PRN 03/24/22 [History] Gabapentin 600 mg PO TID 05/01/22 [History] Hydroxyzine HCl 25 mg [Atarax 25 mg] 25 mg PO TID PRN 05/01/22 [History] Metoprolol Tartrate 50 mg [Lopressor 50 MG] 50 mg PO BID 05/01/22 [History] Tizanidine HCl 4 mg [Zanaflex 4 MG] 4 mg PO Q8H PRN 05/01/22 [History] Fluoxetine HCl 20 mg [Prozac 20 MG] 20 mg PO HS 05/06/22 [History] Fluticasone/Umeclidin/Vilanter [Trelegy Ellipta 200-62.5-25] 2 puffs DAILY 08/11/22 [History] Travel Risk - International Travel Have you traveled outside of the country in past 3 weeks: No - Coronavirus Screening Are you exhibiting any of the following symptoms?: Yes Symptoms: Cough: New Onset, Shortness of Breath Close contact with a COVID-19 positive Pt in past 14-21 Days: No - Vaccine Status Have you recieved a Covid-19 vaccination: Yes 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: [employer] - Vaccination Dates Date of 2cond Vaccination (if applicable): 2020 Dates if Unknown: 2021 <TD MONDRAGON - Last Filed: 08/11/22 19:05> - Review of Systems Constitutional: No Symptoms Eyes: No Symptoms Ears, Nose, & Throat: No Symptoms Respiratory: Cough, Dyspnea Cardiac: No Symptoms Abdominal/Gastrointestinal: No Symptoms Genitourinary Symptoms: No Symptoms Musculoskeletal: No Symptoms Skin: No Symptoms Neurological: No Symptoms Psychological: No Symptoms Endocrine: No Symptoms Hematologic/Lymphatic: No Symptoms Immunological/Allergic: No Symptoms <TD MONDRAGON - Last Filed: 08/11/22 19:05> - Past Medical History Pertinent Past Medical History: Yes Neurological History: No Pertinent History ENT History: No Pertinent History Cardiac History: Arrhythmia, Coronary Artery Disease, Hypertension Respiratory History: Asthma, Bronchitis, CHF, COPD, Pneumonia Endocrine Medical History: Hypothyroidism Musculoskeletal History: Osteoarthritis GI Medical History: Hepatitis, Cirrhosis History: No Pertinent History Psycho-Social History: Anxiety, Bipolar, Depression Male Reproductive Disorders: No Pertinent History Other Medical History: frequent cellulitis in lower extremities - Past Surgical History Past Surgical History: Yes Neuro Surgical History: No Pertinent History Cardiac: No Pertinent History, Cardiac Catheterization Respiratory: No Pertinent History Gastrointestinal: Cholecystectomy Genitourinary: No Pertinent History Musculoskeletal: Orthopedic Surgery Male Surgical History: No Pertinent History Other Surgical History: rt knee,. had cath 5 or 6 years ago. - Social History Smoking Status: Current every day smoker How long have you smoked: 20 yrs Exposure to second hand smoke: Yes Drug Use: none Patient Lives Alone: No <TD MONDRAGON - Last Filed: 08/11/22 19:05> - Physical Exam General Appearance: mild distress, alert, anxiety, obese Eye Exam: PERRL/EOMI, eyes nml inspection Ears, Nose, Throat Exam: hearing grossly normal, normal ENT inspection, normal pharynx Neck Exam: normal inspection, non-tender, supple, full range of motion Respiratory Exam: lungs clear, respiratory distress, airway intact (Mild), diminished breath sounds, No chest tenderness Cardiovascular/Chest Exam: irregular Abdominal/Gastrointestinal Exam: soft, normal bowel sounds, tenderness Rectal Exam: not done Extremity Exam: non-tender, normal range of motion, pedal edema (Skin of bilateral lower extremities is very dry and there is evidence of chronic venous stasis disease) Neurologic Exam: alert, oriented x 3, cooperative, 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 nml as tested, n ormal mood/affect, nml cerebellar function, nml station & gait, sensation nml Skin Exam: normal color, warm, dry, other (Chronic venous stasis disease bilateral lower extremities below the knee) Lymphatic Exam: No adenopathy SpO2 Interpretation: ABG ordered, O2 applied SpO2: 92 O2 Delivery: Aerosol Mask <TD MONDRAGON - Last Filed: 08/11/22 19:05> - Nursing Vital Signs Nursing Vital Signs: Initial Vital Signs Temperature 97.2 F 12/13/22 17:33 Pulse Rate 107 H 08/11/22 17:33 Respiratory Rate 22 08/11/22 17:33 Blood Pressure 129/96 08/11/22 17:33 O2 Sat by Pulse Oximetry 79 L 08/11/22 17:33 Pain Scale Pain Intensity 0 - Course Nursing assessment & vital signs reviewed: Yes EKG Interpreted by Me: RATE (108), A-fib, Other (No acute ischemic changes present) <TD MONDRAGON - Last Filed: 08/11/22 19:05> - CT Exams Chest CT Interpretation: Tele-radiologist Report (Continued negative PE compared to 03/17/2022 and 05/06/2022. Again scattered fibrosis/scarring, periesophageal varices, cirrhosis, splenomegaly and bilateral gynecomastia no new acute findings) <RICHARD HE - Last Filed: 08/11/22 22:32> Ordered Tests: Active Orders 24 hr Category Date Time Status Correctional Sergeant STAT Care 08/11/22 17:50 Active EKG-ER Only STAT Care 08/11/22 17:49 Active IV Insertion STAT Care 08/11/22 17:51 Active Pulse Oximetry (ED) STAT Care 08/11/22 17:49 Active CHEST 1 VIEW (PORTABLE) Stat Exams 08/11/22 17:51 Taken CHEST WITH CONTRAST [CT] Stat Exams 08/11/22 20:41 Taken ABG [ARTERIAL BLOOD GASES] Stat Lab 08/11/22 18:40 Completed BLOOD CULTURE Stat Lab 08/11/22 19:46 Received CBC W DIFF Stat Lab 08/11/22 18:04 Completed CMP Stat Lab 08/11/22 18:04 Completed D-DIMER QUANTITATIVE Stat Lab 08/11/22 17:50 Completed LIPID PROFILE Stat Lab 08/11/22 18:04 Completed NT PRO BNP Stat Lab 08/11/22 18:04 Completed TROPONIN Q4H Lab 08/11/22 18:04 Completed TROPONIN Q4H Lab 08/11/22 21:10 Completed Respiratory Therapy Assessment DAILY RT 08/11/22 17:39 Active Medication Summary Discontinued Medications Generic Name Dose Route Start Last Admin Trade Name Freq PRN Reason Stop Dose Admin Albuterol/Ipratropium 3 ml 08/11/22 17:38 08/11/22 17:35 Ipratropium/Albuterol Sulfate 3 Ml Ampul.Neb IH 08/11/22 17:39 3 ml STAT ONE Administration Ceftriaxone Sodium 1,000 mg 08/11/22 19:48 08/11/22 20:13 Ceftriaxone Sodium 1000 Mg Inj Vial IM 08/11/22 19:49 Not Given STAT ONE Methylprednisolone Sodium 0 mg 08/11/22 19:46 08/11/22 19:52 Succinate 125 mg/ Sterile IV 08/11/22 19:47 125 mg Water 2 ml STAT ONE Administration Azithromycin 500 mg in 250 mls @ 250 mls/hr 08/11/22 19:53 08/11/22 22:24 Zithromax 500 Mg/ 250 Ml Nacl Premix IV 08/11/22 20:52 Infused STAT STA Infusion Ceftriaxone Sodium/Dextrose 1 g in 50 mls @ 100 mls/hr 08/11/22 20:11 21:33 Rocephin 1 Gm-D5w 50 Ml Bag IV 08/11/22 20:40 Infused STAT STA Infusion Ceftriaxone Sodium/Dextrose Confirm 08/11/22 20:13 Rocephin 1 Gm-D5w 50 Ml Bag Administered 08/11/22 20:14 Dose 1 g in 50 mls @ ud IV .STK-MED ONE Azithromycin Confirm 08/11/22 20:49 Zithromax 500 Mg/ 250 Ml Nacl Premix Administered 08/11/22 20:50 Dose 500 mg in 250 mls @ ud IV .STK-MED ONE Methylprednisolone Sodium Succinate Confirm 08/11/22 19:49 Methylprednis Sod Succ 125 Mg/2 Ml Vial Administered 08/11/22 19:50 Dose 125 mg .ROUTE .STK-MED ONE Sterile Water Confirm 08/11/22 19:49 Water For Injection,Sterile 10 Ml Vial Administered 08/11/22 19:50 Dose 10 ml IJ .STK-MED ONE Lab/Rad Data: Laboratory Result Diagrams 08/11/22 18:04 08/11/22 18:04 Laboratory Results 08/11/22 08/11/22 08/11/22 Range/Units 21:10 18:40 18:04 WBC (4.0-10.5) x10^3/uL RBC (4.1-5.6) x10^6/uL Hgb (12.5-18.0) g/dL Hct (42-50) % MCV (78-100) fL MCH (26-32) pg MCHC (32-36) g/dL RDW (11.5-14.0) % Plt Count (150-450) x10^3/uL MPV (7.5-11.0) fL Gran % (36.0-66.0) % Immature Gran % (Auto) (0.00-0.4) % Nucleat RBC Rel Count (0.00-0.1) % Eos # (Auto) (0-0.5) x10^3/uL Immature Gran # (Auto) (0.00-0.03) x10^3u/L Absolute Lymphs (auto) (1.0-4.6) x10^3/uL Absolute Monos (auto) (0.0-1.3) x10^3/uL Absolute Nucleated RBC (0.00-0.01) x10^3u/L Lymphocytes % (24.0-44.0) % Monocytes % (0.0-12.0) % Eosinophils % (0.00-5.0) % Basophils % (0.0-0.4) % Absolute Granulocytes (1.4-6.9) x10^3/uL Basophils # (0-0.4) x10^3/uL D-Dimer (0.0-0.50) mg/L Puncture Site RIGHT RADIAL pCO2 62 H* (35-45) mmHg pO2 67 L (75-100) mmHg Base Excess 5.8 H (-2.0-2.0) O2 Saturation 87.7 L (94-100) g/dF ABG pH 7.35 (7.35-7.45) ABG HCO3 34.2 H* (22-28) ABG O2 Sat (Measured) 94.8 L (95-100) % Gideon Test YES A-a Gradient 355 a/A Ratio 0.16 Hemoglobin 17.9 Carboxyhemoglobin 6.5 (0.0-6.9) % THgb Methemoglobin 1.1 L (1.4-1.5) % Temperature 37.0 C POC O2 Flow Rate 70 % Sodium (137-145) mmol/L Potassium 3.9 (3.5-5.1) mmol/L Chloride (98-107) mmol/L Carbon Dioxide (22-30) mmol/L Anion Gap (5-15) MEQ/L BUN (9-20) mg/dL Creatinine (0.66-1.25) mg/dL Estimated GFR ML/MIN Glucose (74-106) mg/dL Calcium (8.4-10.2) mg/dL Total Bilirubin (0.2-1.3) mg/dL AST (17-59) U/L ALT (0-50) U/L Alkaline Phosphatase (38-126) U/L Troponin I < 0.012 < 0.012 (0.000-0.034) ng/mL NT-Pro-B Natriuret Pep (0-900) pg/mL Serum Total Protein (6.3-8.2) g/dL Albumin (3.5-5.0) g/dL Triglycerides (30-150) mg/dL Cholesterol (50-200) mg/dL LDL Cholesterol (30-100) mg/dL HDL Cholesterol (40-60) mg/dL Heart Disease Risk Ratio Influenza Type A Ag (NEGATIVE) Influenza Type B Ag (NEGATIVE) RSV (PCR) (Negative) SARS-CoV-2 (PCR) (NEGATIVE) 08/11/22 08/11/22 08/11/22 Range/Units 18:04 18:04 18:00 WBC 6.7 (4.0-10.5) x10^3/uL RBC 5.89 H (4.1-5.6) x10^6/uL Hgb 17.5 (12.5-18.0) g/dL Hct 56.6 H (42-50) % MCV 96.1 (78-100) fL MCH 29.7 (26-32) pg MCHC 30.9 L (32-36) g/dL RDW 14.9 H (11.5-14.0) % Plt Count 106 L (150-450) x10^3/uL MPV 11.2 H (7.5-11.0) fL Gran % 69.9 H (36.0-66.0) % Immature Gran % (Auto) 0.6 H (0.00-0.4) % Nucleat RBC Rel Count 0.0 (0.00-0.1) % Eos # (Auto) 0.09 (0-0.5) x10^3/uL Immature Gran # (Auto) 0.04 H (0.00-0.03) x10^3u/L Absolute Lymphs (auto) 1.05 (1.0-4.6) x10^3/uL Absolute Monos (auto) 0.77 (0.0-1.3) x10^3/uL Absolute Nucleated RBC 0.00 (0.00-0.01) x10^3u/L Lymphocytes % 15.6 L (24.0-44.0) % Monocytes % 11.4 (0.0-12.0) % Eosinophils % 1.3 (0.00-5.0) % Basophils % 1.2 (0.0-0.4) % Absolute Granulocytes 4.70 (1.4-6.9) x10^3/uL Basophils # 0.08 (0-0.4) x10^3/uL D-Dimer (0.0-0.50) mg/L Puncture Site pCO2 (35-45) mmHg pO2 (75-100) mmHg Base Excess (-2.0-2.0) O2 Saturation (94-100) g/dF ABG pH (7.35-7.45) ABG HCO3 (22-28) ABG O2 Sat (Measured) (95-100) % Gideon Test A-a Gradient a/A Ratio Hemoglobin Carboxyhemoglobin (0.0-6.9) % THgb Methemoglobin (1.4-1.5) % Temperature C POC O2 Flow Rate % Sodium 137 (137-145) mmol/L Potassium 3.9 (3.5-5.1) mmol/L Chloride 100 (98-107) mmol/L Carbon Dioxide 36 H (22-30) mmol/L Anion Gap 5.4 (5-15) MEQ/L BUN 8 L (9-20) mg/dL Creatinine 0.62 L (0.66-1.25) mg/dL Estimated GFR > 60.0 ML/MIN Glucose 125 H (74-106) mg/dL Calcium 8.5 (8.4-10.2) mg/dL Total Bilirubin 1.50 H (0.2-1.3) mg/dL AST 33 (17-59) U/L ALT 19 (0-50) U/L Alkaline Phosphatase 101 (38-126) U/L Troponin I (0.000-0.034) ng/mL NT-Pro-B Natriuret Pep 790 (0-900) pg/mL Serum Total Protein 7.7 (6.3-8.2) g/dL Albumin 3.7 (3.5-5.0) g/dL Triglycerides 100 (30-150) mg/dL Cholesterol 164 (50-200) mg/dL LDL Cholesterol 106 H (30-100) mg/dL HDL Cholesterol 34 L (40-60) mg/dL Heart Disease Risk Ratio 4.9 Influenza Type A Ag NEGATIVE (NEGATIVE) Influenza Type B Ag NEGATIVE (NEGATIVE) RSV (PCR) NEGATIVE (Negative) SARS-CoV-2 (PCR) NEGATIVE (NEGATIVE) 08/11/22 Range/Units 17:50 WBC (4.0-10.5) x10^3/uL RBC (4.1-5.6) x10^6/uL Hgb (12.5-18.0) g/dL Hct (42-50) % MCV (78-100) fL MCH (26-32) pg MCHC (32-36) g/dL RDW (11.5-14.0) % Plt Count (150-450) x10^3/uL MPV (7.5-11.0) fL Gran % (36.0-66.0) % Immature Gran % (Auto) (0.00-0.4) % Nucleat RBC Rel Count (0.00-0.1) % Eos # (Auto) (0-0.5) x10^3/uL Immature Gran # (Auto) (0.00-0.03) x10^3u/L Absolute Lymphs (auto) (1.0-4.6) x10^3/uL Absolute Monos (auto) (0.0-1.3) x10^3/uL Absolute Nucleated RBC (0.00-0.01) x10^3u/L Lymphocytes % (24.0-44.0) % Monocytes % (0.0-12.0) % Eosinophils % (0.00-5.0) % Basophils % (0.0-0.4) % Absolute Granulocytes (1.4-6.9) x10^3/uL Basophils # (0-0.4) x10^3/uL D-Dimer 0.89 H* (0.0-0.50) mg/L Puncture Site pCO2 (35-45) mmHg pO2 (75-100) mmHg Base Excess (-2.0-2.0) O2 Saturation (94-100) g/dF ABG pH (7.35-7.45) ABG HCO3 (22-28) ABG O2 Sat (Measured) (95-100) % Gideon Test A-a Gradient a/A Ratio Hemoglobin Carboxyhemoglobin (0.0-6.9) % THgb Methemoglobin (1.4-1.5) % Temperature C POC O2 Flow Rate % Sodium (137-145) mmol/L Potassium (3.5-5.1) mmol/L Chloride (98-107) mmol/L Carbon Dioxide (22-30) mmol/L Anion Gap (5-15) MEQ/L BUN (9-20) mg/dL Creatinine (0.66-1.25) mg/dL Estimated GFR ML/MIN Glucose (74-106) mg/dL Calcium (8.4-10.2) mg/dL Total Bilirubin (0.2-1.3) mg/dL AST (17-59) U/L ALT (0-50) U/L Alkaline Phosphatase (38-126) U/L Troponin I (0.000-0.034) ng/mL NT-Pro-B Natriuret Pep (0-900) pg/mL Serum Total Protein (6.3-8.2) g/dL Albumin (3.5-5.0) g/dL Triglycerides (30-150) mg/dL Cholesterol (50-200) mg/dL LDL Cholesterol (30-100) mg/dL HDL Cholesterol (40-60) mg/dL Heart Disease Risk Ratio Influenza Type A Ag (NEGATIVE) Influenza Type B Ag (NEGATIVE) RSV (PCR) (Negative) SARS-CoV-2 (PCR) (NEGATIVE) - Progress Air Movement: fair Blood Culture(s) Obtained: No Antibiotics given: No Counseled pt/family regarding: lab results, diagnosis, need for follow-up, rad results <TD MONDRAGON - Last Filed: 08/11/22 19:05> - Progress Progress: improved <RICHARD HE - Last Filed: 08/11/22 22:32> - Progress Progress Note: 08/11/22 19:06 Patient care is being transferred to Dr. He at shift change. He will follow- up with the laboratory results and radiographic studies results. He will make final disposition. (TD MONDRAGON) Patient endorsed Dr. He at approximately [address] He advised to follow-up on pending CTA chest. D-dimer positive. CTA chest negative for PE. Patient has history of COPD. Patient symptoms consistent with COPD exacerbation. Blood cultures obtained. Antibiotics administered. Patient received Solu-Medrol as well as breathing treatment. He feels much better. Patient stable. Will admit for COPD exacerbation. Case discussed with Dr. Sams who accepts admission to observation. Plan of care discussed with patient. He agrees to admission [facility] for further evaluation and treatment. Portions of this note were created with voice recognition technology. There may be grammatical, spelling, punctuation or sound alike errors 08/11/22 22:30 (RICHARD HE) - Departure Departure Disposition: Observation Critical Care Time: Yes Critical Care Time(excluding separately billable procedures): Critical 30-74 mins (45 minutes) <TD MONDRAGON - Last Filed: 08/11/22 19:05> <RICHARD HE - Last Filed: 08/11/22 22:32> - Departure Clinical Impression: Shortness of breath, Cough, Hypoxia Condition: Fair Referrals: KETAN ECHEVARRIA [Primary Care Provider] - Follow up/PCP as directed
[2022-08-11 18:43] LABS: INFLUENZA A NEGATIVE (NEGATIVE); INFLUENZA B NEGATIVE (NEGATIVE); RESPIRATORY SYNCTIAL VIRUS NEGATIVE (Negative); SARS-CoV-2 Xpert Express NEGATIVE (NEGATIVE)
[2022-08-11 18:46] LABS: A-aADO2 355; ABG HEMOGLOBIN 17.9; ABG POTASSIUM 3.9 (3.5-5.1); ABG SITE RIGHT RADIAL; ALLEN TEST OK? YES; ARTERIAL BLD GAS O2 SATURATION 94.8 % (95-100); ARTERIAL BLOOD GAS BASE EXCESS 5.8 (-2.0-2.0); ARTERIAL BLOOD GAS FIO2 70 %; ARTERIAL BLOOD GAS PCO2 62 mmHg (35-45); ARTERIAL BLOOD GAS PO2 67 mmHg (75-100); ARTERIAL BLOOD GAS pH 7.35 (7.35-7.45); CARBOXYHEMOGLOBIN 6.5 % THgb (0.0-6.9); HCO3- 34.2 (22-28); HGB O2 SAT 87.7 g/dF (94-100); Methhemoglobin 1.1 % (1.4-1.5)
[2022-08-11] MEDS ORDERED: solu-MEDROL 125 MG, Sterile H2O 10 ml 2 ML IV ONE ×2 (19:46)
[2022-08-11] MEDS ORDERED: Rocephin 1000 MG INJ IM ONE (19:48)
[2022-08-11] MEDS ORDERED: solu-MEDROL ONE (19:49)
[2022-08-11] MEDS ORDERED: Sterile H2O 10 ml IJ ONE (19:49)
[2022-08-11] MEDS ORDERED: Zithromax 500 MG/ 250 ML NaCl Premix 500 MG/250 ML IVPB IV STA (19:53)
[2022-08-11] MEDS ORDERED: ROCEPHIN 1 Gm-D5w 50 ml Bag** 1 G/50 ML IVPB IV STA (20:11)
[2022-08-11] MEDS ORDERED: ROCEPHIN 1 Gm-D5w 50 ml Bag** 1 G/50 ML IVPB IV ONE (20:13)
[2022-08-11] MEDS ORDERED: Zithromax 500 MG/ 250 ML NaCl Premix 500 MG/250 ML IVPB IV ONE (20:49)
[2022-08-11] MEDS: PROVENTIL 2.5 MG/3 ML NEB IH SCH (23:54)
[2022-08-11] MEDS ORDERED: Xifaxan 200 MG PO SCH (23:56)
[2022-08-12] MEDS ORDERED: solu-MEDROL ONE ×5 (00:56→23:58)
[2022-08-12] MEDS: NEURONTIN PO SCH ×4 (01:04→22:23)
[2022-08-12] MEDS: solu-MEDROL 80 MG, Sterile H2O 10 ml 2 ML IV SCH ×8 (01:04→17:59)
[2022-08-12] MEDS: ELIQUIS 2.5 MG TABLET PO SCH ×3 (01:05→22:23)
[2022-08-12] MEDS: Prozac 20 MG PO SCH ×2 (01:05→22:24)
[2022-08-12] MEDS: Lopressor 50 MG PO SCH ×3 (01:05→22:23)
[2022-08-12] MEDS: zyPREXA 5MG TABLET PO SCH ×2 (01:05→22:23)
[2022-08-12] MEDS: PROVENTIL 2.5 MG/3 ML NEB IH SCH ×6 (03:41→22:46)
[2022-08-12 05:26] LABS: Hematocrit 56.7 % (42-50); Hemoglobin 17.5 g/dL (12.5-18.0); Mean Cell Volume 96.6 fL (78-100); Mean Corpuscular Hemoglobin 29.8 pg (26-32); Mean Corpuscular Hgb Concent. 30.9 g/dL (32-36); Platelet Count 79 x10^3/uL (150-450); Red Blood Count 5.87 x10^6/uL (4.1-5.6); Red Cell Distribution Width 14.9 % (11.5-14.0); White Blood Count 3.5 x10^3/uL (4.0-10.5)
[2022-08-12 06:01] LABS: ALBUMIN 3.6 g/dL (3.5-5.0); ALKALINE PHOSPHATASE 94 U/L (38-126); BLOOD UREA NITROGEN 8 mg/dL (9-20); CHLORIDE 103 mmol/L (98-107); Calcium 8.6 mg/dL (8.4-10.2); Carbon Dioxide 33 mmol/L (22-30); Creatinine 1 0.56 mg/dL (0.66-1.25); EST GLOMERULAR FILTRATION RATE > 60.0 ML/MIN; Glucose 174 mg/dL (74-106); SGOT/AST 31 U/L (17-59); SGPT/ALT 19 U/L (0-50); Total Protein 7.6 g/dL (6.3-8.2)
[2022-08-12 06:03] LABS: SODIUM 139 mmol/L (137-145)
[2022-08-12 07:20] LABS: Slide Review YES
[2022-08-12] MEDS: Advair Hfa 115/21 Common canister IH SCH ×2 (07:49→19:06)
--- NOTE | 2022-08-12 08:37 | XRAY ---
Indication: Short of breath, congestion, and nausea. Elevated d-dimer. Multiple contiguous axial images obtained through the chest using 125 cc Isovue 370 contrast and PE protocol. Comparison: May 06, 2022 There is adequate opacification of the lower lobe segmental branches. No pulmonary embolus. Heart not enlarged. Aorta is normal in course and caliber. Stable tiny mediastinal and left hilar calcified nodes. No pathologic mediastinal/hilar lymphadenopathy. Grossly stable distal paraesophageal varices. Lungs demonstrates minimal scattered bilateral peripheral fibrosis/scarring, greatest right middle lobe. Mild bilateral dependent atelectasis. No suspicious pulmonary mass, infiltrate, consolidation, or effusion.. Bony thorax intact again with mild/moderate degenerative changes throughout the spine, remote T7 superior endplate fracture, and remote bilateral rib fractures. Again incidental bilateral gynecomastia and 3 cm subcutaneous cyst posterior to T4-T5. Limited upper abdomen again demonstrates cirrhotic liver, 15.8 cm splenomegaly, and cholecystectomy clips. No ascites.. Impression: 1. Continued negative pulmonary embolus. No acute cardiopulmonary abnormalities. 2. Again chronic findings including scattered pulmonary fibrosis/scarring, cirrhotic liver, splenomegaly, distal paraesophageal varices, chronic bony findings, bilateral gynecomastia, and posterior subcutaneous cyst.
--- NOTE | 2022-08-12 08:59 | XRAY ---
Indication: Short of breath. Comparison: May 21, 2022 Portable chest again demonstrates chronic lung markings without focal infiltrate, consolidation, or large effusion. Heart not enlarged for AP portable technique. Bony thorax intact again with mild osteopenia and degenerative changes. Impression: Nonacute chest with chronic features.
--- NOTE | 2022-08-12 09:13 | PCM.HP ---
History of Present Illness - Chief Complaint Chief Complaint: COPD exacerbation History of Present Illness: is a 52 year old male pt of Dr. Stern with COPD, afib, HTN, CAD, CHF, Steatohepatitis (sees hvac service tech), recurrent PNA, and hypothyroidism who was admitted through ER with COPD exacerbation. CXR and CT chest nonacute, neg for PE. Pt felt fine over the weekend, then Wednesday morning (2d ago) felt ill with cough and SOB but did not have a ride to the doctor. Yesterday went to [facility] and was found to have pulse ox 79% so was sent over to ER. Given steroid, antibiotics, and nebs and withO2 sats are in the upper 80s and lower 90s. At home, he wears O2 at night (2L NC). Pt denies any fever at home. Cough is productive but he's unable to characterize it. Sees Dr. Gallegos. Does smoke TOB. Denies alcohol use. Lives with parents. - Review of Systems Constitutional: No Fever Respiratory: Cough, Short Of Breath Abdominal/Gastrointestinal: Abdominal Pain (chronic, due to fatty liver per pt), Diarrhea (chronic) Psychological: Anxiety, Depression (controlled with meds), No Suicidal Ideations, No Homicidal Ideations All Other Systems: Reviewed and Negative Medications & Allergies Home Medications: Home Medication List Propranolol HCl 40 mg PO DAILY 11/04/18 [History Confirmed 08/11/22] Albuterol Common Canister [Ventolin Common Canister] 2 puffs IH Q4HPRN PRN 30 Days #1 puff 08/31/20 [Rx Confirmed 08/11/22] Rifaximin [Xifaxan] 550 mg PO BID 30 Days #60 tablet 08/31/20 [Rx Confirmed 08/11/22] Potassium Chloride [Klor-Con 8] 8 meq PO DAILY 03/05/21 [History Confirmed 08/11/22] Apixaban [Eliquis] 5 mg PO BID #60 tablet 03/08/21 [Rx Confirmed 08/11/22] Bumetanide 1 mg [Bumex 1 mg] 2 mg PO BID 03/24/22 [History Confirmed 08/11/22] Gabapentin 600 mg PO TID 05/01/22 [History Confirmed 08/11/22] Hydroxyzine HCl 25 mg [Atarax 25 mg] 25 mg PO TID PRN PRN 05/01/22 [History Confirmed 08/11/22] Metoprolol Tartrate 50 mg [Lopressor 50 MG] 50 mg PO BID 05/01/22 [History Confirmed 08/11/22] Tizanidine HCl 4 mg [Zanaflex 4 MG] 4 mg PO Q8H PRN PRN 05/01/22 [History Confirmed 08/11/22] Fluoxetine HCl 20 mg [Prozac 20 MG] 20 mg PO HS 05/06/22 [History Confirmed 08/11/22] Alprazolam [Xanax Xr] 1.5 mg PO QHS 08/11/22 [History Confirmed 08/11/22] Fluticasone/Umeclidin/Vilanter [Trelegy Ellipta 200-62.5-25] 1 puffs IH DAILY 08/11/22 [History Confirmed 08/11/22] Levothyroxine Sodium [Levothyroxine] 175 mcg PO DAILY 08/11/22 [History Confirmed 08/11/22] OLANZapine [Zyprexa] 15 mg PO QHS 08/11/22 [History Confirmed 08/11/22] Ropinirole HCl 0.5 mg [Requip 0.5 MG] 0.5 mg PO QHS 08/11/22 [History Confirmed 08/11/22] Allergies/Adverse Reactions: Allergies Allergy/AdvReac Type Severity Reaction Status Date / Time nitrofurantoin Allergy Rash Verified 08/11/22 23:10 [From Macrobid] adhesive tape AdvReac Verified 08/11/22 23:10 - Past Medical History Past Medical History: Yes Neurological History: No Pertinent History ENT History: No Pertinent History Cardiac History: Arrhythmia, Congestive Heart Failure, Coronary Artery Disease, Hypertension Respiratory History: Asthma, Bronchitis, CHF, COPD, Pneumonia Endocrine Medical History: Hypothyroidism Musculoskelatal History: Osteoarthritis GI Medical History: Hepatitis, Cirrhosis History: No Pertinent History Pyscho-Social History: Anxiety, Bipolar, Depression Male Reproductive Disorders: No Pertinent History Comment: hepatitis A, B, C according to pt report. - Past Surgical History Past Surgical History: Yes Neuro Surgical History: No Pertinent History Cardiac History: Cardiac Catheterization Respiratory Surgery: No Pertinent History GI Surgical History: Cholecystectomy Genitourinary Surgical Hx: No Pertinent History Musculskeletal Surgical Hx: Orthopedic Surgery Male Surgical History: No Pertinent History Other Surgical History: right knee arthroscopy. heart cath appx 5 years ago. - Social History Smoking Status: Current every day smoker How long have you smoked: 35 years Exposure to second hand smoke: Yes Alcohol: None Drug Use: none - Physical Exam Vital Signs: Vital Signs - 24 hr Temp Pulse Resp BP Pulse Ox 08/12/22 07:42 76 18 95 08/12/22 07:29 97.5 F 91 H 20 136/91 94 L 08/12/22 04:00 98.2 F 83 20 116/78 87 L 08/12/22 03:42 86 14 85 L 08/11/22 23:54 113 H 16 90 L 08/11/22 23:28 97 F 105 H 24 129/94 95 08/11/22 22:00 101 H 22 130/94 92 L 08/11/22 21:00 108 H 22 130/94 108 H 08/11/22 20:00 97 H 18 129/83 105 H 08/11/22 19:07 92 L 08/11/22 19:00 110 H 20 138/81 93 L 08/11/22 17:59 92 L 08/11/22 17:42 91 L 08/11/22 17:40 107 H 22 79 L 08/11/22 17:33 97.2 F 107 H 22 129/96 79 L General Appearance: no apparent distress, obese Neurologic Exam: oriented x 3, cooperative Eye Exam: eyes nml inspection Ears, Nose, Throat Exam: moist mucous membranes Neck Exam: normal inspection, non-tender, No lymphadenopathy, No subcutaneous emphysema, No thyromegaly Respiratory Exam: lungs clear, diminished breath sounds (fair to good air exchange), wheezing (scattered expiratory), No crackles/rales, No rhonchi Cardiovascular Exam: normal heart sounds, irregular, No murmur Gastrointestinal/Abdomen Exam: soft, normal bowel sounds, other (morbidly obese), No tenderness, No mass, No guarding, No rebound Back Exam: normal inspection, No rash Extremity Exam: other (chronic venous stasis change.) Skin Exam: warm, dry, No rash Results - Labs Lab/Micro Results: Lab Results-Last 24 Hours 08/11/22 08/11/22 08/11/22 Range/Units 17:50 18:00 18:04 WBC 6.7 (4.0-10.5) x10^3/uL RBC 5.89 H (4.1-5.6) x10^6/uL Hgb 17.5 (12.5-18.0) g/dL Hct 56.6 H (42-50) % MCV 96.1 (78-100) fL MCH 29.7 (26-32) pg MCHC 30.9 L (32-36) g/dL RDW 14.9 H (11.5-14.0) % Plt Count 106 L (150-450) x10^3/uL MPV 11.2 H (7.5-11.0) fL Gran % 69.9 H (36.0-66.0) % Immature Gran % (Auto) 0.6 H (0.00-0.4) % Nucleat RBC Rel Count 0.0 (0.00-0.1) % Eos # (Auto) 0.09 (0-0.5) x10^3/uL Immature Gran # (Auto) 0.04 H (0.00-0.03) x10^3u/L Absolute Lymphs (auto) 1.05 (1.0-4.6) x10^3/uL Absolute Monos (auto) 0.77 (0.0-1.3) x10^3/uL Absolute Nucleated RBC 0.00 (0.00-0.01) x10^3u/L Lymphocytes % 15.6 L (24.0-44.0) % Monocytes % 11.4 (0.0-12.0) % Eosinophils % 1.3 (0.00-5.0) % Basophils % 1.2 (0.0-0.4) % Absolute Granulocytes 4.70 (1.4-6.9) x10^3/uL Basophils # 0.08 (0-0.4) x10^3/uL D-Dimer 0.89 H* (0.0-0.50) mg/L Puncture Site pCO2 (35-45) mmHg pO2 (75-100) mmHg Base Excess (-2.0-2.0) O2 Saturation (94-100) g/dF ABG pH (7.35-7.45) ABG HCO3 (22-28) ABG O2 Sat (Measured) (95-100) % Gideon Test A-a Gradient a/A Ratio Hemoglobin Carboxyhemoglobin (0.0-6.9) % THgb Methemoglobin (1.4-1.5) % Temperature C POC O2 Flow Rate % Sodium (137-145) mmol/L Potassium (3.5-5.1) mmol/L Chloride (98-107) mmol/L Carbon Dioxide (22-30) mmol/L Anion Gap (5-15) MEQ/L BUN (9-20) mg/dL Creatinine (0.66-1.25) mg/dL Estimated GFR ML/MIN Glucose (74-106) mg/dL Calcium (8.4-10.2) mg/dL Total Bilirubin (0.2-1.3) mg/dL AST (17-59) U/L ALT (0-50) U/L Alkaline Phosphatase (38-126) U/L Troponin I (0.000-0.034) ng/mL NT-Pro-B Natriuret Pep (0-900) pg/mL Serum Total Protein (6.3-8.2) g/dL Albumin (3.5-5.0) g/dL Triglycerides (30-150) mg/dL Cholesterol (50-200) mg/dL LDL Cholesterol (30-100) mg/dL HDL Cholesterol (40-60) mg/dL Heart Disease Risk Ratio Influenza Type A Ag NEGATIVE (NEGATIVE) Influenza Type B Ag NEGATIVE (NEGATIVE) RSV (PCR) NEGATIVE (Negative) SARS-CoV-2 (PCR) NEGATIVE (NEGATIVE) Slides for Path Review 08/11/22 08/11/22 08/11/22 Range/Units 18:04 18:04 18:40 WBC (4.0-10.5) x10^3/uL RBC (4.1-5.6) x10^6/uL Hgb (12.5-18.0) g/dL Hct (42-50) % MCV (78-100) fL MCH (26-32) pg MCHC (32-36) g/dL RDW (11.5-14.0) % Plt Count (150-450) x10^3/uL MPV (7.5-11.0) fL Gran % (36.0-66.0) % Immature Gran % (Auto) (0.00-0.4) % Nucleat RBC Rel Count (0.00-0.1) % Eos # (Auto) (0-0.5) x10^3/uL Immature Gran # (Auto) (0.00-0.03) x10^3u/L Absolute Lymphs (auto) (1.0-4.6) x10^3/uL Absolute Monos (auto) (0.0-1.3) x10^3/uL Absolute Nucleated RBC (0.00-0.01) x10^3u/L Lymphocytes % (24.0-44.0) % Monocytes % (0.0-12.0) % Eosinophils % (0.00-5.0) % Basophils % (0.0-0.4) % Absolute Granulocytes (1.4-6.9) x10^3/uL Basophils # (0-0.4) x10^3/uL D-Dimer (0.0-0.50) mg/L Puncture Site RIGHT RADIAL pCO2 62 H* (35-45) mmHg pO2 67 L (75-100) mmHg Base Excess 5.8 H (-2.0-2.0) O2 Saturation 87.7 L (94-100) g/dF ABG pH 7.35 (7.35-7.45) ABG HCO3 34.2 H* (22-28) ABG O2 Sat (Measured) 94.8 L (95-100) % Gideon Test YES A-a Gradient 355 a/A Ratio 0.16 Hemoglobin 17.9 Carboxyhemoglobin 6.5 (0.0-6.9) % THgb Methemoglobin 1.1 L (1.4-1.5) % Temperature 37.0 C POC O2 Flow Rate 70 % Sodium 137 (137-145) mmol/L Potassium 3.9 3.9 (3.5-5.1) mmol/L Chloride 100 (98-107) mmol/L Carbon Dioxide 36 H (22-30) mmol/L Anion Gap 5.4 (5-15) MEQ/L BUN 8 L (9-20) mg/dL Creatinine 0.62 L (0.66-1.25) mg/dL Estimated GFR > 60.0 ML/MIN Glucose 125 H (74-106) mg/dL Calcium 8.5 (8.4-10.2) mg/dL Total Bilirubin 1.50 H (0.2-1.3) mg/dL AST 33 (17-59) U/L ALT 19 (0-50) U/L Alkaline Phosphatase 101 (38-126) U/L Troponin I < 0.012 (0.000-0.034) ng/mL NT-Pro-B Natriuret Pep 790 (0-900) pg/mL Serum Total Protein 7.7 (6.3-8.2) g/dL Albumin 3.7 (3.5-5.0) g/dL Triglycerides 100 (30-150) mg/dL Cholesterol 164 (50-200) mg/dL LDL Cholesterol 106 H (30-100) mg/dL HDL Cholesterol 34 L (40-60) mg/dL Heart Disease Risk Ratio 4.9 Influenza Type A Ag (NEGATIVE) Influenza Type B Ag (NEGATIVE) RSV (PCR) (Negative) SARS-CoV-2 (PCR) (NEGATIVE) Slides for Path Review 08/11/22 08/12/22 08/12/22 Range/Units 21:10 05:25 05:25 WBC 3.5 L (4.0-10.5) x10^3/uL RBC 5.87 H (4.1-5.6) x10^6/uL Hgb 17.5 (12.5-18.0) g/dL Hct 56.7 H (42-50) % MCV 96.6 (78-100) fL MCH 29.8 (26-32) pg MCHC 30.9 L (32-36) g/dL RDW 14.9 H (11.5-14.0) % Plt Count 79 L (150-450) x10^3/uL MPV 11.0 (7.5-11.0) fL Gran % (36.0-66.0) % Immature Gran % (Auto) (0.00-0.4) % Nucleat RBC Rel Count (0.00-0.1) % Eos # (Auto) (0-0.5) x10^3/uL Immature Gran # (Auto) (0.00-0.03) x10^3u/L Absolute Lymphs (auto) (1.0-4.6) x10^3/uL Absolute Monos (auto) (0.0-1.3) x10^3/uL Absolute Nucleated RBC (0.00-0.01) x10^3u/L Lymphocytes % (24.0-44.0) % Monocytes % (0.0-12.0) % Eosinophils % (0.00-5.0) % Basophils % (0.0-0.4) % Absolute Granulocytes (1.4-6.9) x10^3/uL Basophils # (0-0.4) x10^3/uL D-Dimer (0.0-0.50) mg/L Puncture Site pCO2 (35-45) mmHg pO2 (75-100) mmHg Base Excess (-2.0-2.0) O2 Saturation (94-100) g/dF ABG pH (7.35-7.45) ABG HCO3 (22-28) ABG O2 Sat (Measured) (95-100) % Gideon Test A-a Gradient a/A Ratio Hemoglobin Carboxyhemoglobin (0.0-6.9) % THgb Methemoglobin (1.4-1.5) % Temperature C POC O2 Flow Rate % Sodium 139 (137-145) mmol/L Potassium 4.0 (3.5-5.1) mmol/L Chloride 103 (98-107) mmol/L Carbon Dioxide 33 H (22-30) mmol/L Anion Gap 10.0 (5-15) MEQ/L BUN 8 L (9-20) mg/dL Creatinine 0.56 L (0.66-1.25) mg/dL Estimated GFR > 60.0 ML/MIN Glucose 174 H (74-106) mg/dL Calcium 8.6 (8.4-10.2) mg/dL Total Bilirubin 0.90 (0.2-1.3) mg/dL AST 31 (17-59) U/L ALT 19 (0-50) U/L Alkaline Phosphatase 94 (38-126) U/L Troponin I < 0.012 (0.000-0.034) ng/mL NT-Pro-B Natriuret Pep (0-900) pg/mL Serum Total Protein 7.6 (6.3-8.2) g/dL Albumin 3.6 (3.5-5.0) g/dL Triglycerides (30-150) mg/dL Cholesterol (50-200) mg/dL LDL Cholesterol (30-100) mg/dL HDL Cholesterol (40-60) mg/dL Heart Disease Risk Ratio Influenza Type A Ag (NEGATIVE) Influenza Type B Ag (NEGATIVE) RSV (PCR) (Negative) SARS-CoV-2 (PCR) (NEGATIVE) Slides for Path Review YES - Radiology Impressions Radiology Exams & Impressions: Radiology Procedures Category Date Time Status CHEST 1 VIEW (PORTABLE) Stat Exams 08/11/22 17:51 Completed CHEST WITH CONTRAST [CT] Stat Exams 08/11/22 20:41 Completed - Other Procedures and Tests Respiratory Therapy 08/11/22 17:39 Respiratory Therapy Assessment DAILY 08/11/22 23:53 Oxygen Nasal Cannula 2 lpm Assessment/Plan (1) COPD exacerbation Current Visit: No Status: Acute Assessment & Plan: On IV antibiotics, rocephin and zithromax, with IV steroid 80mg q6h. Anticipate several days before he is ready to d/c to home. Code(s): J44.1 - CHRONIC OBSTRUCTIVE PULMONARY DISEASE W (ACUTE) EXACERBATION (2) Hypoxia Current Visit: Yes Status: Acute Code(s): R09.02 - HYPOXEMIA (3) Atrial fibrillation Current Visit: No Status: Chronic Qualifiers: Atrial fibrillation type: unspecified Qualified Code(s): I48.91 - Unspecified atrial fibrillation Code(s): I48.91 - UNSPECIFIED ATRIAL FIBRILLATION (4) Cirrhosis Current Visit: No Status: Chronic Qualifiers: Hepatic cirrhosis type: other cirrhosis Qualified Code(s): K74.69 - Other cirrhosis of liver (5) Thrombocytopenia Current Visit: No Status: Chronic
[2022-08-12] MEDS ORDERED: VENTOLIN COMMON CANISTER IH PRN (09:40)
[2022-08-12] MEDS ORDERED: NON-FORMULARY ITEM (Potassium Chloride [Klor-Con 8] 8 MEQ Tablet.Er) PO SCH (10:00)
[2022-08-12] MEDS ORDERED: LEVOTHYROXINE SODIUM 175 MCG PO SCH (10:00)
[2022-08-12] MEDS ORDERED: PROPRANOLOL HCL 40 MG PO SCH (10:00)
[2022-08-12] MEDS ORDERED: NON-FORMULARY ITEM (Rifaximin [Xifaxan] 550 MG Tablet) PO SCH (10:00)
[2022-08-12] MEDS ORDERED: MEDICATION INTERVENTION MC SCH (10:15)
[2022-08-12] MEDS: Inderal PO SCH (10:51)
[2022-08-12] MEDS: BUMEX 1 MG PO SCH ×2 (10:51→16:04)
[2022-08-12] MEDS: Klor Con PO SCH (10:52)
[2022-08-12] MEDS: SYNTHROID 75 MCG PO SCH (10:52)
[2022-08-12] MEDS: SYNTHROID 100 MCG PO SCH (10:52)
[2022-08-12] MEDS ORDERED: zyPREXA 5MG TABLET PO SCH (22:00)
[2022-08-12] MEDS ORDERED: OLANZAPINE 15 MG PO SCH (22:00)
[2022-08-12] MEDS ORDERED: ALPRAZOLAM 0.5 MG PO SCH (22:00)
[2022-08-12] MEDS: Zithromax 500 MG/ 250 ML NaCl Premix 500 MG/250 ML IVPB IV SCH (22:22)
[2022-08-12] MEDS: ROCEPHIN 1 Gm-D5w 50 ml Bag** 1 G/50 ML IVPB IV SCH (22:22)
[2022-08-12] MEDS: xanAX 0.5 MG PO SCH (22:23)
[2022-08-12] MEDS: Requip 0.5 MG PO SCH (22:24)
[2022-08-12] MEDS: Zanaflex 4 MG PO PRN (22:30)
[2022-08-13] MEDS: solu-MEDROL 80 MG, Sterile H2O 10 ml 2 ML IV SCH ×10 (00:09→23:00)
[2022-08-13] MEDS: PROVENTIL 2.5 MG/3 ML NEB IH SCH ×6 (02:38→22:21)
[2022-08-13] MEDS ORDERED: solu-MEDROL ONE (05:50)
[2022-08-13] MEDS: Advair Hfa 115/21 Common canister IH SCH ×2 (06:55→18:55)
[2022-08-13 08:17] LABS: Hematocrit 56.3 % (42-50); Hemoglobin 16.7 g/dL (12.5-18.0); Mean Cell Volume 101.4 fL (78-100); Mean Corpuscular Hemoglobin 30.1 pg (26-32); Mean Corpuscular Hgb Concent. 29.7 g/dL (32-36); Mean Platelet Volume 11.9 fL (7.5-11.0); Platelet Count 71 x10^3/uL (150-450); Red Blood Count 5.55 x10^6/uL (4.1-5.6); Red Cell Distribution Width 14.6 % (11.5-14.0); White Blood Count 7.1 x10^3/uL (4.0-10.5)
[2022-08-13 08:31] LABS: ANION GAP 5.5 MEQ/L (5-15); BLOOD UREA NITROGEN 11 mg/dL (9-20); CHLORIDE 104 mmol/L (98-107); Calcium 8.4 mg/dL (8.4-10.2); Carbon Dioxide 33 mmol/L (22-30); Creatinine 1 0.46 mg/dL (0.66-1.25); EST GLOMERULAR FILTRATION RATE > 60.0 ML/MIN; Glucose 171 mg/dL (74-106); SODIUM 138 mmol/L (137-145)
--- NOTE | 2022-08-13 08:56 | PCM.NOTE ---
Date and Time: 08/13/22 0850 Subjective Assessment: He says he feels like his breathing is better. He has been a little more difficult to wake up today for the aide and for me (woke to touch). Up to the bathroom ok. Jose A po. - Review of Systems Constitutional: No Fever Respiratory: Cough, Short Of Breath Objective Exam General Appearance: no apparent distress, other (initially sleeping; wakes to touch and loud voice, but then is awake for the entire interview and exam.) Neurologic Exam: alert, cooperative Skin Exam: normal color, warm, dry, No rash Eye Exam: eyes nml inspection Ears, Nose, Throat Exam: moist mucous membranes Neck Exam: normal inspection Respiratory Exam: diminished breath sounds (fair air exchange), wheezing (throughout), No crackles/rales, No rhonchi Cardiovascular Exam: normal heart sounds, irregular, No murmur Gastrointestinal/Abdomen Exam: soft, normal bowel sounds, No tenderness, No distention, No mass, No guarding Extremity Exam: other (chronic venous stasis change) OBJECTIVE DATA Vital Signs: Vital Signs - 24 hr Temp Pulse Resp BP Pulse Ox 08/13/22 07:01 97.0 F 75 19 129/95 91 L 08/13/22 06:56 76 16 92 L 08/13/22 03:48 96.9 F 72 18 118/65 90 L 08/13/22 02:42 111 H 18 90 L 08/12/22 23:41 97.1 F 97 H 19 124/74 08/12/22 22:48 86 18 92 L 08/12/22 19:49 97.0 F 105 H 19 123/83 90 L 08/12/22 19:09 101 H 20 94 L 08/12/22 16:00 97.8 F 85 20 123/95 94 L 08/12/22 15:57 94 L 08/12/22 15:55 92 H 18 94 L 08/12/22 11:54 93 H 20 94 L 08/12/22 11:34 97.8 F 91 H 20 129/77 94 L Pain Assessment - Last Documented Pain Intensity 0 Intake and Output: Intake & Output 08/10/22 08/11/22 08/12/22 08/13/22 11:59 11:59 11:59 11:59 Intake Total 600 2400 Output Total 1000 2000 Balance -400 400 Weight 209.3 kg 210 kg Lab Results: Lab Results-Last 24 Hours 08/13/22 08/13/22 Range/Units 07:50 07:50 WBC 7.1 (4.0-10.5) x10^3/uL RBC 5.55 (4.1-5.6) x10^6/uL Hgb 16.7 (12.5-18.0) g/dL Hct 56.3 H (42-50) % MCV 101.4 H (78-100) fL MCH 30.1 (26-32) pg MCHC 29.7 L (32-36) g/dL RDW 14.6 H (11.5-14.0) % Plt Count 71 L (150-450) x10^3/uL MPV 11.9 H (7.5-11.0) fL Sodium 138 (137-145) mmol/L Potassium 4.0 (3.5-5.1) mmol/L Chloride 104 (98-107) mmol/L Carbon Dioxide 33 H (22-30) mmol/L Anion Gap 5.5 (5-15) MEQ/L BUN 11 (9-20) mg/dL Creatinine 0.46 L (0.66-1.25) mg/dL Estimated GFR > 60.0 ML/MIN Glucose 171 H (74-106) mg/dL Calcium 8.4 (8.4-10.2) mg/dL Radiology Exams: Radiology Procedures Category Date Time Status CHEST 1 VIEW (PORTABLE) Stat Exams 08/11/22 17:51 Completed CHEST WITH CONTRAST [CT] Stat Exams 08/11/22 20:41 Completed Multi-Disciplinary Progress Notes: Multi-Disciplinary Progress Notes 08/12/22 11:03 Case Management Note by Charmaine Barahona S/W [facility]- PATIENT HAS ORDERS FOR 2L/NC 22/03 WITH A PORTABLE CONCENTRATOR. D/T PATIENT STATING HE DOES NOT KNOW HOW TO USE/CHARGE PORTABLE CONCENTRATOR-NEW OXYGEN TANK ORDERED VIA [employer] FOR [facility]. THIS WILL BE DELIVERED TO [facility]. [facility] SAID WHEN THEY DELIVER THE PORTABLE TANK THEY WILL TEACH PATIENT HOW TO CHARGE HIS PORTABLE CONCENTRATOR Initialized on 08/12/22 11:03 - END OF NOTE Assessment/Plan (1) COPD exacerbation Current Visit: No Status: Acute Assessment & Plan: He is still on 3L, oxymizer this morning and was on oxymask yesterday. Will consult Dr. Gallegos, who is the patients' swim coach. Code(s): J44.1 - CHRONIC OBSTRUCTIVE PULMONARY DISEASE W (ACUTE) EXACERBATION (2) Hypoxia Current Visit: Yes Status: Acute Code(s): R09.02 - HYPOXEMIA (3) Atrial fibrillation Current Visit: No Status: Chronic Qualifiers: Atrial fibrillation type: unspecified Qualified Code(s): I48.91 - Unspecified atrial fibrillation Code(s): I48.91 - UNSPECIFIED ATRIAL FIBRILLATION (4) Cirrhosis Current Visit: No Status: Chronic Qualifiers: Hepatic cirrhosis type: other cirrhosis Qualified Code(s): K74.69 - Other cirrhosis of liver Assessment & Plan: He has an appointment on Wednesday with hepatology in [place]. (5) Thrombocytopenia Current Visit: No Status: Chronic Assessment & Plan: Slowly decreasing, will keep monitoring. Likely related to cirrhosis. 70 this morning.
[2022-08-13] MEDS: Inderal PO SCH (10:11)
[2022-08-13] MEDS: NEURONTIN PO SCH ×3 (10:11→21:07)
[2022-08-13] MEDS: Klor Con PO SCH (10:11)
[2022-08-13] MEDS: BUMEX 1 MG PO SCH ×2 (10:11→18:47)
[2022-08-13] MEDS: SYNTHROID 75 MCG PO SCH (10:12)
[2022-08-13] MEDS: Lopressor 50 MG PO SCH ×2 (10:12→21:07)
[2022-08-13] MEDS: ELIQUIS 2.5 MG TABLET PO SCH ×2 (10:12→21:08)
[2022-08-13] MEDS: SYNTHROID 100 MCG PO SCH (10:12)
[2022-08-13 10:24] LABS: Slide Review YES
--- NOTE | 2022-08-13 13:11 | CONS ---
CONSULT DATE: 08/13/2022 HISTORY: Luis Alston is a 52-year-old male with history of chronic obstructive pulmonary disease along with many other comorbidities and morbid obesity, known to me, seen and followed in the office after hospitalization at [facility], who has been sick for the past three to four days. The patient has been admitted to [facility] under the care of Dr. Chandler. He does report feeling better since admission. He has cough which has been nonproductive. He denies any chest pain. He is currently on oxygen at night. He has been on oxygen at home. He is somewhat noncompliant to outpatient medical management. PAST MEDICAL HISTORY: Positive for chronic obstructive pulmonary disease, atrial fibrillation, chronic hypoxemia, congestive heart failure, hypertension, anxiety, morbid obesity and hypothyroidism. PAST SURGICAL HISTORY: No recent surgery. PERSONAL AND SOCIAL HISTORY: He has been a smoker. MEDICATIONS: Home and current medications are reviewed. ALLERGIES: NITROFURANTOIN (RASH). ADHESIVE TAPE. PHYSICAL EXAMINATION: A middle aged male sitting in bed appears comfortable, able to carry out a conversation. VITAL SIGNS: Temperature 97.5F, heart rate 90, blood pressure 136/90 mmHg saturating 94% on nasal cannula. HEENT: Normocephalic. Oral exam shows small oropharynx. NECK: Short, supple. CVS: First and second heart sounds are normal, regular, rhythmic with some irregularity. RESPIRATORY: Shows diminished breath sounds, scattered rhonchi heard. ABDOMEN: Obese. EXTREMITIES: 1+ edema is noted. LABORATORY DATA AND TESTS: White count 7.1, hemoglobin 16.7, hematocrit 56, PLT count 71,000. Sodium 138, potassium 4.0, chloride 104, bicarb 33, glucose 171, BUN 11, creatinine 0.46. Cultures are negative to date. CT chest was negative for pulmonary embolus or acute cardiopulmonary disease. Chronic changes of pulmonary fibrosis, cirrhosis of liver, splenomegaly and distal paraesophageal varices are noted. ASSESSMENT: This is a 52-year-old man admitted with: 1) Chronic obstructive pulmonary disease with acute exacerbation. 2) Acute bronchitis. 3) Chronic hypoxic respiratory failure. 4) Chronic atrial fibrillation on anticoagulation. 5) Thrombocytopenia likely from cirrhosis and hypertension. 6) Morbid obesity. 7) Anxiety/depression. RECOMMENDATIONS: 1) I agree with present treatment. 2) Continue supplemental oxygen, continue steroids with gradual taper, continue bronchodilators and also offer deep vein thrombosis prophylaxis. 3) Need for improved compliance was discussed. Will follow up in outpatient setting upon discharge from hospital.
[2022-08-13] MEDS: Zanaflex 4 MG PO PRN ×2 (14:49→22:56)
[2022-08-13] MEDS: Prozac 20 MG PO SCH (21:07)
[2022-08-13] MEDS: xanAX 0.5 MG PO SCH (21:07)
[2022-08-13] MEDS: Requip 0.5 MG PO SCH (21:08)
[2022-08-13] MEDS: zyPREXA 5MG TABLET PO SCH (21:08)
[2022-08-13] MEDS: ROCEPHIN 1 Gm-D5w 50 ml Bag** 1 G/50 ML IVPB IV SCH (21:15)
[2022-08-13] MEDS: Zithromax 500 MG/ 250 ML NaCl Premix 500 MG/250 ML IVPB IV SCH (21:59)
[2022-08-14] MEDS: PROVENTIL 2.5 MG/3 ML NEB IH SCH ×6 (03:15→23:01)
[2022-08-14 04:53] LABS: Hematocrit 51.2 % (42-50); Hemoglobin 15.9 g/dL (12.5-18.0); Mean Corpuscular Hemoglobin 30.1 pg (26-32); Mean Corpuscular Hgb Concent. 31.1 g/dL (32-36); Mean Platelet Volume 11.5 fL (7.5-11.0); Platelet Count 68 x10^3/uL (150-450); Red Blood Count 5.28 x10^6/uL (4.1-5.6); Red Cell Distribution Width 14.9 % (11.5-14.0); White Blood Count 6.1 x10^3/uL (4.0-10.5)
[2022-08-14 05:21] LABS: ALBUMIN 3.1 g/dL (3.5-5.0); ALKALINE PHOSPHATASE 118 U/L (38-126); ANION GAP 3.2 MEQ/L (5-15); BLOOD UREA NITROGEN 14 mg/dL (9-20); CHLORIDE 99 mmol/L (98-107); Carbon Dioxide 39 mmol/L (22-30); Creatinine 1 0.48 mg/dL (0.66-1.25); EST GLOMERULAR FILTRATION RATE > 60.0 ML/MIN; Glucose 178 mg/dL (74-106); Potassium 3.4 mmol/L (3.5-5.1); SGOT/AST 28 U/L (17-59); SGPT/ALT 21 U/L (0-50); SODIUM 138 mmol/L (137-145); Total Protein 6.6 g/dL (6.3-8.2)
[2022-08-14] MEDS ORDERED: solu-MEDROL ONE (05:59)
[2022-08-14] MEDS: solu-MEDROL 80 MG, Sterile H2O 10 ml 2 ML IV SCH ×6 (06:01→20:35)
[2022-08-14] MEDS: Advair Hfa 115/21 Common canister IH SCH ×2 (06:52→19:27)
[2022-08-14 07:30] LABS: Slide Review YES
--- NOTE | 2022-08-14 08:01 | PCM.NOTE ---
Date and Time: 08/14/22 0759 Subjective Assessment: patient is feeling some better he states, still requiring 5L oxygen this morning. was seen by pulm for consult with no major changes Objective Exam General Appearance: no apparent distress, obese Neurologic Exam: alert, oriented x 3 Respiratory Exam: prolonged expirations, wheezing Cardiovascular Exam: regular rate/rhythm, normal heart sounds Gastrointestinal/Abdomen Exam: soft, No tenderness, No mass Extremity Exam: normal inspection, normal range of motion OBJECTIVE DATA Vital Signs: Vital Signs - 24 hr Temp Pulse Resp BP Pulse Ox 08/14/22 07:10 96.9 F 125 H 20 117/70 95 08/14/22 06:53 69 18 94 L 08/14/22 04:00 96.9 F 73 19 114/75 91 L 08/14/22 03:17 88 18 92 L 08/13/22 23:42 97.1 F 83 18 121/66 91 L 08/13/22 22:23 101 H 22 94 L 08/13/22 19:59 96.8 F 89 18 141/70 92 L 08/13/22 18:54 85 18 94 L 08/13/22 15:12 97.5 F 90 20 121/72 92 L 08/13/22 14:49 77 20 97 08/13/22 11:39 97.0 F 80 18 144/94 95 08/13/22 10:42 78 20 92 L Pain Assessment - Last Documented Pain Intensity 5 Intake and Output: Intake & Output 08/11/22 08/12/22 08/13/22 08/14/22 11:59 11:59 11:59 11:59 Intake Total 600 2400 360 Output Total 1000 2000 Balance -400 400 360 Weight 209.3 kg 210 kg 211 kg Lab Results: Lab Results-Last 24 Hours 08/13/22 08/13/22 08/14/22 Range/Units 07:50 07:50 04:26 WBC 7.1 6.1 (4.0-10.5) x10^3/uL RBC 5.55 5.28 (4.1-5.6) x10^6/uL Hgb 16.7 15.9 (12.5-18.0) g/dL Hct 56.3 H 51.2 H (42-50) % MCV 101.4 H 97.0 (78-100) fL MCH 30.1 30.1 (26-32) pg MCHC 29.7 L 31.1 L (32-36) g/dL RDW 14.6 H 14.9 H (11.5-14.0) % Plt Count 71 L 68 L (150-450) x10^3/uL MPV 11.9 H 11.5 H (7.5-11.0) fL Sodium 138 (137-145) mmol/L Potassium 4.0 (3.5-5.1) mmol/L Chloride 104 (98-107) mmol/L Carbon Dioxide 33 H (22-30) mmol/L Anion Gap 5.5 (5-15) MEQ/L BUN 11 (9-20) mg/dL Creatinine 0.46 L (0.66-1.25) mg/dL Estimated GFR > 60.0 ML/MIN Glucose 171 H (74-106) mg/dL Calcium 8.4 (8.4-10.2) mg/dL Total Bilirubin (0.2-1.3) mg/dL AST (17-59) U/L ALT (0-50) U/L Alkaline Phosphatase (38-126) U/L Serum Total Protein (6.3-8.2) g/dL Albumin (3.5-5.0) g/dL Slides for Path Review YES YES 08/14/22 Range/Units 04:26 WBC (4.0-10.5) x10^3/uL RBC (4.1-5.6) x10^6/uL Hgb (12.5-18.0) g/dL Hct (42-50) % MCV (78-100) fL MCH (26-32) pg MCHC (32-36) g/dL RDW (11.5-14.0) % Plt Count (150-450) x10^3/uL MPV (7.5-11.0) fL Sodium 138 (137-145) mmol/L Potassium 3.4 L (3.5-5.1) mmol/L Chloride 99 (98-107) mmol/L Carbon Dioxide 39 H (22-30) mmol/L Anion Gap 3.2 L (5-15) MEQ/L BUN 14 (9-20) mg/dL Creatinine 0.48 L (0.66-1.25) mg/dL Estimated GFR > 60.0 ML/MIN Glucose 178 H (74-106) mg/dL Calcium 8.0 L (8.4-10.2) mg/dL Total Bilirubin 0.50 (0.2-1.3) mg/dL AST 28 (17-59) U/L ALT 21 (0-50) U/L Alkaline Phosphatase 118 (38-126) U/L Serum Total Protein 6.6 (6.3-8.2) g/dL Albumin 3.1 L (3.5-5.0) g/dL Slides for Path Review Multi-Disciplinary Progress Notes: Multi-Disciplinary Progress Notes 08/13/22 10:26 Case Management Note by Charmaine Barahona [email or web address] THEY WILL NEED NOTIFIED AT TIME OF DC AT [phone]. THEY WILL NEED FAXED THE DC INSTRUCTIONS, DC MED LIST AND DC SUMMARY ( IF AVAILABLE) TO [phone] Initialized on 08/13/22 10:26 - END OF NOTE 08/13/22 10:20 Case Management Note by Charmaine Barahona S/W PATIENT THIS AM- HE IS AGREEABLE TO [facility] THRU HIS MEDICARE. NO PREFERENCE ON COMPANY- WILL SEND TO READILY AVAILABLE, [employer]. HE ALREADY HAS HOME OXYGEN AT HOME AT 2L 24/7 AND [facility] ALREADY DELIVERED A PORTABLE FOR TRANSPORT HOME. HE REPORTS HE IS WALKING BACK AND FORTH TO THE BATHROOM WITHOUT DIFFICULTY. NO NEW NEEDS IDENTIFIED AT THIS TIME. HE PLANS TO RETURN HOME TO HIS F AT TIME OF DC Initialized on 08/13/22 10:20 - END OF NOTE Assessment/Plan (1) COPD exacerbation Current Visit: No Status: Acute Assessment & Plan: continue rocephin/zithromax and IV solu medrol with nebulizer treatments. still has significant wheezing on exam with significant oxygen requirements, he is normally on 2L flow at home Code(s): J44.1 - CHRONIC OBSTRUCTIVE PULMONARY DISEASE W (ACUTE) EXACERBATION (2) Morbid obesity Current Visit: Yes Status: Acute Code(s): E66.01 - MORBID (SEVERE) OBESITY DUE TO EXCESS CALORIES (3) CHF (congestive heart failure) Current Visit: No Status: Acute Code(s): I50.9 - HEART FAILURE, UNSPECIFIED (4) Atrial fibrillation Current Visit: No Status: Chronic Qualifiers: Atrial fibrillation type: unspecified Qualified Code(s): I48.91 - Uns pecified atrial fibrillation Code(s): I48.91 - UNSPECIFIED ATRIAL FIBRILLATION
[2022-08-14] MEDS: SYNTHROID 75 MCG PO SCH (09:33)
[2022-08-14] MEDS: ELIQUIS 2.5 MG TABLET PO SCH ×2 (09:33→20:45)
[2022-08-14] MEDS: BUMEX 1 MG PO SCH ×2 (09:33→16:49)
[2022-08-14] MEDS: NEURONTIN PO SCH ×3 (09:34→20:46)
[2022-08-14] MEDS: Klor Con PO SCH (09:34)
[2022-08-14] MEDS: SYNTHROID 100 MCG PO SCH (09:34)
[2022-08-14] MEDS: Lopressor 50 MG PO SCH ×2 (09:34→20:45)
[2022-08-14] MEDS: Inderal PO SCH (09:34)
[2022-08-14] MEDS: ROCEPHIN 1 Gm-D5w 50 ml Bag** 1 G/50 ML IVPB IV SCH (20:36)
[2022-08-14] MEDS: zyPREXA 5MG TABLET PO SCH (20:44)
[2022-08-14] MEDS: xanAX 0.5 MG PO SCH (20:44)
[2022-08-14] MEDS: Requip 0.5 MG PO SCH (20:45)
[2022-08-14] MEDS: Prozac 20 MG PO SCH (20:46)
[2022-08-14] MEDS: Zithromax 500 MG/ 250 ML NaCl Premix 500 MG/250 ML IVPB IV SCH (20:52)
[2022-08-14] MEDS: ATARAX 25 MG PO PRN (22:08)
[2022-08-14] MEDS: Zanaflex 4 MG PO PRN (22:08)
[2022-08-15] MEDS: solu-MEDROL 80 MG, Sterile H2O 10 ml 2 ML IV SCH ×8 (00:50→18:56)
[2022-08-15] MEDS: PROVENTIL 2.5 MG/3 ML NEB IH SCH ×6 (02:54→22:52)
[2022-08-15 06:22] LABS: Hematocrit 54.8 % (42-50); Hemoglobin 16.8 g/dL (12.5-18.0); Mean Cell Volume 96.5 fL (78-100); Mean Corpuscular Hemoglobin 29.6 pg (26-32); Mean Corpuscular Hgb Concent. 30.7 g/dL (32-36); Mean Platelet Volume 10.3 fL (7.5-11.0); Platelet Count 73 x10^3/uL (150-450); Red Blood Count 5.68 x10^6/uL (4.1-5.6); Red Cell Distribution Width 15.1 % (11.5-14.0); White Blood Count 5.3 x10^3/uL (4.0-10.5)
[2022-08-15 07:04] LABS: ALBUMIN 3.5 g/dL (3.5-5.0); ALKALINE PHOSPHATASE 105 U/L (38-126); ANION GAP 6.6 MEQ/L (5-15); BLOOD UREA NITROGEN 16 mg/dL (9-20); CHLORIDE 96 mmol/L (98-107); Calcium 8.3 mg/dL (8.4-10.2); Carbon Dioxide 38 mmol/L (22-30); Creatinine 1 0.43 mg/dL (0.66-1.25); EST GLOMERULAR FILTRATION RATE > 60.0 ML/MIN; Glucose 155 mg/dL (74-106); Potassium 3.8 mmol/L (3.5-5.1); SGOT/AST 38 U/L (17-59); SGPT/ALT 30 U/L (0-50); SODIUM 137 mmol/L (137-145)
[2022-08-15] MEDS: Advair Hfa 115/21 Common canister IH SCH ×2 (07:27→19:05)
[2022-08-15] MEDS: BUMEX 1 MG PO SCH ×2 (09:26→15:35)
[2022-08-15] MEDS: NEURONTIN PO SCH ×3 (09:27→21:48)
[2022-08-15] MEDS: ELIQUIS 2.5 MG TABLET PO SCH ×2 (09:27→21:47)
[2022-08-15] MEDS: Klor Con PO SCH (09:27)
[2022-08-15] MEDS: Lopressor 50 MG PO SCH ×2 (09:27→21:48)
[2022-08-15] MEDS: SYNTHROID 100 MCG PO SCH (09:27)
[2022-08-15] MEDS: Inderal PO SCH (09:27)
[2022-08-15] MEDS: SYNTHROID 75 MCG PO SCH (09:27)
[2022-08-15 12:12] LABS: Slide Review YES
--- NOTE | 2022-08-15 17:27 | PCM.NOTE ---
Date and Time: 08/15/221726 Subjective Assessment: Patient states he is starting to feel better finally,breathing easier/deeper.Is on 5L. At home wears 2L at bed but is not on Cpap.Dr Gallegos follows. Objective Exam General Appearance: no apparent distress, other (morbidly obese) Neurologic Exam: alert, oriented x 3, cooperative, normal mood/affect (pleasant) Skin Exam: normal color, warm, dry Ears, Nose, Throat Exam: normal ENT inspection (O2 at 5L), moist mucous membranes Respiratory Exam: diminished breath sounds, wheezing (eew left mid and scattered) Cardiovascular Exam: irregular (rate 70s) OBJECTIVE DATA Vital Signs: Vital Signs - 24 hr Temp Pulse Resp BP Pulse Ox 08/15/22 16:00 96.9 F 77 18 169/95 91 L 08/15/22 14:51 83 18 94 L 08/15/22 12:00 97.8 F 88 20 137/77 94 L 08/15/22 11:34 95 H 18 90 L 08/15/22 07:28 118 H 20 94 L 08/15/22 07:25 96.7 F 70 19 113/58 94 L 08/15/22 04:00 97.3 F 74 16 129/72 94 L 08/15/22 02:54 92 H 12 96 08/15/22 00:00 97.5 F 73 15 94/53 89 L 08/14/22 23:01 91 H 12 92 L 08/14/22 20:00 97.5 F 93 H 19 134/77 95 08/14/22 19:22 93 H 19 95 Pain Assessment - Last Documented Pain Intensity 0 Intake and Output: Intake & Output 08/13/22 08/14/22 08/15/22 08/16/22 11:59 11:59 11:59 11:59 Intake Total 2400 360 3760 Output Total 2000 Balance 505 622 6978 Weight 210 kg 211 kg 210.9 kg Lab Results: Lab Results-Last 24 Hours 08/15/22 08/15/22 Range/Units 06:13 06:13 WBC 5.3 (4.0-10.5) x10^3/uL RBC 5.68 H (4.1-5.6) x10^6/uL Hgb 16.8 (12.5-18.0) g/dL Hct 54.8 H (42-50) % MCV 96.5 (78-100) fL MCH 29.6 (26-32) pg MCHC 30.7 L (32-36) g/dL RDW 15.1 H (11.5-14.0) % Plt Count 73 L (150-450) x10^3/uL MPV 10.3 (7.5-11.0) fL Sodium 137 (137-145) mmol/L Potassium 3.8 (3.5-5.1) mmol/L Chloride 96 L (98-107) mmol/L Carbon Dioxide 38 H (22-30) mmol/L Anion Gap 6.6 (5-15) MEQ/L BUN 16 (9-20) mg/dL Creatinine 0.43 L (0.66-1.25) mg/dL Estimated GFR > 60.0 ML/MIN Glucose 155 H (74-106) mg/dL Calcium 8.3 L (8.4-10.2) mg/dL Total Bilirubin 0.70 (0.2-1.3) mg/dL AST 38 (17-59) U/L ALT 30 (0-50) U/L Alkaline Phosphatase 105 (38-126) U/L Serum Total Protein 7.0 (6.3-8.2) g/dL Albumin 3.5 (3.5-5.0) g/dL Slides for Path Review YES Assessment/Plan (1) COPD exacerbation Current Visit: No Status: Acute Assessment & Plan: Acute on chronic - improved still on O2 5L and solumedrol and antibiotics. RT following Code(s): J44.1 - CHRONIC OBSTRUCTIVE PULMONARY DISEASE W (ACUTE) EXACERBATION (2) Hypoxia Current Visit: Yes Status: Acute Assessment & Plan: RT monitoring Code(s): R09.02 - HYPOXEMIA
[2022-08-15] MEDS: xanAX 0.5 MG PO SCH (21:47)
[2022-08-15] MEDS: Prozac 20 MG PO SCH (21:47)
[2022-08-15] MEDS: ROCEPHIN 1 Gm-D5w 50 ml Bag** 1 G/50 ML IVPB IV SCH (21:47)
[2022-08-15] MEDS: Requip 0.5 MG PO SCH (21:47)
[2022-08-15] MEDS: zyPREXA 5MG TABLET PO SCH (21:47)
[2022-08-15] MEDS: Zithromax 500 MG/ 250 ML NaCl Premix 500 MG/250 ML IVPB IV SCH (22:25)
[2022-08-16] MEDS: solu-MEDROL 80 MG, Sterile H2O 10 ml 2 ML IV SCH ×8 (00:49→19:37)
[2022-08-16] MEDS: Zanaflex 4 MG PO PRN (01:43)
[2022-08-16] MEDS: ATARAX 25 MG PO PRN (01:43)
[2022-08-16] MEDS: PROVENTIL 2.5 MG/3 ML NEB IH SCH ×4 (03:22→16:00)
[2022-08-16 05:51] LABS: Hematocrit 51.1 % (42-50); Mean Cell Volume 97.3 fL (78-100); Mean Corpuscular Hemoglobin 30.5 pg (26-32); Mean Corpuscular Hgb Concent. 31.3 g/dL (32-36); Mean Platelet Volume 11.5 fL (7.5-11.0); Platelet Count 70 x10^3/uL (150-450); Red Blood Count 5.25 x10^6/uL (4.1-5.6); Red Cell Distribution Width 14.7 % (11.5-14.0); White Blood Count 3.8 x10^3/uL (4.0-10.5)
[2022-08-16 06:01] LABS: ALBUMIN 3.1 g/dL (3.5-5.0); ALKALINE PHOSPHATASE 100 U/L (38-126); ANION GAP 3.8 MEQ/L (5-15); BLOOD UREA NITROGEN 14 mg/dL (9-20); CHLORIDE 97 mmol/L (98-107); Calcium 8.3 mg/dL (8.4-10.2); Carbon Dioxide 40 mmol/L (22-30); Creatinine 1 0.43 mg/dL (0.66-1.25); EST GLOMERULAR FILTRATION RATE > 60.0 ML/MIN; Glucose 211 mg/dL (74-106); Potassium 3.6 mmol/L (3.5-5.1); SGOT/AST 30 U/L (17-59); SGPT/ALT 31 U/L (0-50); SODIUM 136 mmol/L (137-145); Total Protein 6.2 g/dL (6.3-8.2)
[2022-08-16] MEDS: Advair Hfa 115/21 Common canister IH SCH (07:29)
[2022-08-16] MEDS: Inderal PO SCH (08:26)
[2022-08-16] MEDS: NEURONTIN PO SCH ×2 (08:26→15:12)
[2022-08-16] MEDS: SYNTHROID 75 MCG PO SCH (08:27)
[2022-08-16] MEDS: BUMEX 1 MG PO SCH ×2 (08:27→13:34)
[2022-08-16] MEDS: Klor Con PO SCH (08:27)
[2022-08-16] MEDS: Lopressor 50 MG PO SCH (08:27)
[2022-08-16] MEDS: ELIQUIS 2.5 MG TABLET PO SCH (08:27)
[2022-08-16] MEDS: SYNTHROID 100 MCG PO SCH (08:27)
[2022-08-16 09:15] LABS: Slide Review YES
[2022-08-16 15:34] VITALS: BP 166/86
[2022-08-16 16:04] VITALS: PULSE 73; O2SAT 95
--- NOTE | 2022-08-16 19:01 | PCM.DS ---
Discharge Summary Date of Admission: 08/12/22 09:08 Date of Discharge: 08/16/22 Admitting Physician: LISA MART Consults: Consults on Case 08/13/22 08:49 Consult Pulmonology ROUTINE Primary Care Provider: KETAN ECHEVARRIA Allergies Allergies nitrofurantoin [From Macrobid] Allergy (Verified 08/11/22 23:10) Rash adhesive tape Adverse Reaction (Verified 08/11/22 23:10) Hospital Summary - Vitals & Intake/Output Vital Signs: Vital Signs Temperature 97.5 F 08/16/22 15:32 Pulse Rate 73 08/16/22 16:00 Respiratory Rate 20 08/16/22 16:00 Blood Pressure 166/86 08/16/22 15:32 O2 Sat by Pulse Oximetry 95 08/16/22 16:00 Intake & Output: Intake & Output 08/14/22 08/15/22 08/16/22 08/17/22 11:59 11:59 11:59 11:59 Intake Total 360 3760 3600 1040 Balance 360 3760 3600 1040 Weight 211 kg 210.9 kg 212.4 kg - Lab Result Diagrams: 08/16/22 05:24 08/16/22 05:24 Lab Results-Last 24 Hrs: Lab Results-Last 24 Hours 08/15/22 08/16/22 08/16/22 Range/Units 16:00 05:24 05:24 WBC 3.8 L (4.0-10.5) x10^3/uL RBC 5.25 (4.1-5.6) x10^6/uL Hgb 16.0 (12.5-18.0) g/dL Hct 51.1 H (42-50) % MCV 97.3 (78-100) fL MCH 30.5 (26-32) pg MCHC 31.3 L (32-36) g/dL RDW 14.7 H (11.5-14.0) % Plt Count 70 L (150-450) x10^3/uL MPV 11.5 H (7.5-11.0) fL Sodium 136 L (137-145) mmol/L Potassium 3.6 (3.5-5.1) mmol/L Chloride 97 L (98-107) mmol/L Carbon Dioxide 40 H (22-30) mmol/L Anion Gap 3.8 L (5-15) MEQ/L BUN 14 (9-20) mg/dL Creatinine 0.43 L (0.66-1.25) mg/dL Estimated GFR > 60.0 ML/MIN Glucose 211 H (74-106) mg/dL Calcium 8.3 L (8.4-10.2) mg/dL Total Bilirubin 0.70 (0.2-1.3) mg/dL AST 30 (17-59) U/L ALT 31 (0-50) U/L Alkaline Phosphatase 100 (38-126) U/L Serum Total Protein 6.2 L (6.3-8.2) g/dL Albumin 3.1 L (3.5-5.0) g/dL TSH 3rd Generation 0.169 L (0.47-4.68) mIU/L Slides for Path Review YES Micro Results-Entire Visit: Microbiology 08/11/22 21:10 Blood Culture Gram Stain - Final Blood Not Reportable Blood Culture - Final NO GROWTH 08/11/22 21:10 Blood Culture Gram Stain - Final Blood Not Reportable Blood Culture - Final NO GROWTH - Procedures and Test Procedures and Tests throughout Hospitalization: Therapy Orders & Screens 08/11/22 17:39 Respiratory Therapy Assessment DAILY Comment: 08/11/22 23:53 Oxygen Nasal Cannula 2 lpm Comment: PT STATES HE ONLY WEARS 2LPM HS Diagnosis: COPD exacerbation 08/12/22 00:00 RT Screen per Nursing Assess ONCE Comment: Protocol Order Physician Instructions: Greater than 3 points order RT Admission Screen Reason For Exam: Triggered on Admission Diagnosis: COPD exacerbation Diagnosis: COPD exacerbation Pneumonia: No Home O2: Yes: 2L NC at HS only Asthma: No CHF: Yes Home CPAP/BIPAP: No Home Nebs/MDI: Yes Total Points: 13 Smoking Cessation Education ONCE Comment: Diagnosis: COPD exacerbation Smoking Status: Current every day smoker How long have you smoked: 35 years Have you smoked in the past 12 months: Yes Approximately how many cigarettes per day: 10 Do you dip or chew tobacco: No If,Former Smoker,when did you quit: 5 days ago Final Diagnosis/Problem List - Final Discharge Diagnosis/Problem (1) COPD exacerbation Current Visit: No Status: Acute Code(s): J44.1 - CHRONIC OBSTRUCTIVE PULMONARY DISEASE W (ACUTE) EXACERBATION (2) Hypoxia Current Visit: Yes Status: Acute Code(s): R09.02 - HYPOXEMIA - Discharge Disposition: HOME HEALTH SERVICE Condition: Fair Prescriptions: Continue Propranolol HCl 40 mg PO DAILY Albuterol Common Canister [Ventolin Common Canister] 2 puffs IH Q4HPRN PRN 30 Days #1 puff PRN Reason: Shortness Of Breath/Wheezing Rifaximin [Xifaxan] 550 mg PO BID 30 Days #60 tablet Potassium Chloride [Klor-Con 8] 8 meq PO DAILY Apixaban [Eliquis] 5 mg PO BID #60 tablet Bumetanide 1 mg [Bumex 1 mg] 2 mg PO BID Metoprolol Tartrate 50 mg [Lopressor 50 MG] 50 mg PO BID Tizanidine HCl 4 mg [Zanaflex 4 MG] 4 mg PO Q8H PRN PRN PRN Reason: Muscle Spasms Hydroxyzine HCl 25 mg [Atarax 25 mg] 25 mg PO TID PRN PRN PRN Reason: Itching Gabapentin 600 mg PO TID Fluoxetine HCl 20 mg [Prozac 20 MG] 20 mg PO HS Fluticasone/Umeclidin/Vilanter [Trelegy Ellipta 200-62.5-25] 1 puffs IH DAILY Alprazolam [Xanax Xr] 1.5 mg PO QHS Levothyroxine Sodium [Levothyroxine] 175 mcg PO DAILY OLANZapine [Zyprexa] 15 mg PO QHS Ropinirole HCl 0.5 mg [Requip 0.5 MG] 0.5 mg PO QHS Instructions: Exacerbation of COPD (DC) Additional Instructions: [facility] WILL CONTACT YOU TO ARRANGE A VISIT. THEIR PHONE NUMBER IS [phone]. WEAR 2L O2 AT ALL TIMES FOLLOW UP WITH PRIMARY CARE PHYSICIAN IN 1 WEEK Follow up with: KETAN ECHEVARRIA [Primary Care Provider] - SUMIT SCHULZ [ACTIVE STAFF] - 09/02/22 3:00 pm
== END 2022-08-16 19:10 | disposition home health service (06) | DRG 192 ==
LOC: ED 17:32 → MED SURG 22:47 → OBSVTOIN 08-12 09:08
PROVIDERS: ADMIT Family Medicine; ATTEND Family Medicine
DX: J44.1 Chronic obstructive pulmonary disease with (acute) exacerbation (principal); R09.02 Hypoxemia; I11.0 Hypertensive heart disease with heart failure; I50.9 Heart failure, unspecified; I48.91 Unspecified atrial fibrillation; I25.10 Atherosclerotic heart disease of native coronary artery without angina pectoris; E03.9 Hypothyroidism, unspecified; K74.69 Other cirrhosis of liver; D69.6 Thrombocytopenia, unspecified; Z99.81 Dependence on supplemental oxygen; Z72.0 Tobacco use; Z79.899 Other long term (current) drug therapy; Z20.828 Contact with and (suspected) exposure to other viral communicable diseases
CPT/HCPCS: 0241U; 36000; 36415; 36600; 71045; 71260; 80048; 80053; 80061; 82375; 82803; 83721; 83880; 84443; 84484; 85025; 85027; 85379; 87040; 93005; 93041; 93268; 94640; 94760; 94762; 96365; 96367; 96374; 99285; 99291; G0378; J0456; J0696; J2930; J7609; A9270-GY

== ENCOUNTER 2023-11-02 06:23 | Day surgery (SDC) | payer MEDICARE ==
[2023-11-02] MEDS ORDERED: Lactated Ringers 1,000 ML IV ONE ×2 (07:07→10:20)
[2023-11-02] MEDS: Lactated Ringers 1,000 ML IV SCH (07:28)
[2023-11-02] MEDS: KEFZOL 1 GM** 3 G in Sodium Chloride 0.9% 50 ML 50 ML IV SCH (07:28)
[2023-11-02 07:30] LABS: Absolute Neutrophil Ct (ANC) 6.12 x10^3/uL (1.4-6.9); BASOPHIL % 0.9 % (0.0-0.4); Basophil (Absolute #) 0.08 x10^3/uL (0-0.4); Eosinophil % 2.3 % (0.00-5.0); Hematocrit 54.6 % (42-50); Hemoglobin 17.9 g/dL (12.5-18.0); IMMATURE GRAN # 0.06 x10^3u/L (0.00-0.03); IMMATURE GRAN % 0.7 % (0.00-0.4); Lymphocyte (Absolute #) 1.67 x10^3/uL (1.0-4.6); Lymphocytes % 18.8 % (24.0-44.0); Mean Cell Volume 93.3 fL (78-100); Mean Corpuscular Hemoglobin 30.6 pg (26-32); Mean Corpuscular Hgb Concent. 32.8 g/dL (32-36); Mean Platelet Volume 11.1 fL (7.5-11.0); Monocyte (Absolute #) 0.74 x10^3/uL (0.0-1.3); Monocytes % 8.3 % (0.0-12.0); Platelet Count 114 x10^3/uL (150-450); Red Blood Count 5.85 x10^6/uL (4.1-5.6); White Blood Count 8.9 x10^3/uL (4.0-10.5)
[2023-11-02 07:41] LABS: ALBUMIN 3.6 g/dL (3.5-5.0); ANION GAP 11.1 MEQ/L (5-15); BILIRUBIN,TOTAL 1.1 mg/dL (0.2-1.3); Creatinine 1 0.51 mg/dL (0.66-1.25); Direct Bilirubin 0.1 mg/dL (0.0-0.4); EST GLOMERULAR FILTRATION RATE 120.5 ML/MIN; Potassium 3.9 mmol/L (3.5-5.1); Total Protein 7.6 g/dL (6.3-8.2)
[2023-11-02 07:43] LABS: INR 1.19 (0.8-3.0); PROTIME 12.8 SECONDS (9.4-12.5); PTT 30.8 SECONDS (25.1-36.5)
[2023-11-02] MEDS ORDERED: Marcaine Mpf 0.5% Vial 30 Ml ONE (09:14)
[2023-11-02] MEDS ORDERED: XYLOCAINE 1% HCL 20 ML MDV ONE (09:14)
[2023-11-02] MEDS ORDERED: DIPRIVAN 200 MG/20 ML IV ONE (09:30)
[2023-11-02] MEDS ORDERED: SUBLIMAZE 100 MCG/2 ML ONE (09:30)
[2023-11-02] MEDS ORDERED: Versed 2 MG/2 ML Injection ONE ×2 (09:30→10:09)
[2023-11-02] MEDS ORDERED: Xylocaine-Mpf 2% 5 Ml Vial ONE (09:33)
[2023-11-02] MEDS ORDERED: DEXMEDETOMIDINE 80 MCG/20ML-NS IV ONE (09:54)
--- NOTE | 2023-11-02 10:55 | XRAY ---
Indication: Right 2nd toe hammertoe correction. Intraoperative fluoroscopy provided for 33 seconds. 17 digital spot images submitted for interpretation ultimately demonstrates 2nd metatarsal head shereen osteotomy and fusion 2nd toe both with intact screws. Correlate with intraoperative findings/report.
[2023-11-02 11:42] VITALS: RESP 18
[2023-11-02 12:00] VITALS: BP 141/104; PULSE 73; TEMP 96.5; O2SAT 93
--- NOTE | 2023-11-02 12:15 | XRAY ---
33 seconds of fluoroscopy was used in surgery for a right 2nd toe hammertoe correction.
--- NOTE | 2023-11-04 09:48 | OP ---
SURGERY DATE/TIME: 11/02/2023 0919 PREOPERATIVE DIAGNOSES: 1) Severe rigid hammer toe right foot. 2) Right foot pain. 3) Metatarsal deformity. POSTOPERATIVE DIAGNOSES: 1) Severe rigid hammer toe right foot. 2) Right foot pain. 3) Metatarsal deformity. PROCEDURE: Deanna osteotomy second metatarsal and hammer toe correction second digit right foot. SURGEON: Schuyler Hansen DPM. DIE CUTTER DIAMOND: None. ANESTHESIA: Monitored anesthesia care. HEMOSTASIS: Ankle tourniquet set to 250 mm of Mercury for approximately 25 total tourniquet minutes. ESTIMATED BLOOD LOSS: Minimal. MATERIALS: 2.0 x 14 partially threaded headed screw for the Deanna. 3.0 x 40 screw for the hammer toe correction. 4-0 Monocryl, 3-0 Nylon. INJECTABLES: 30 cc injection of 1:1 mixture of 1% lidocaine plain and 0.5% bupivacaine plain was injected in a metatarsal block-type fashion to the right lower extremity. INDICATIONS FOR PROCEDURE: Luis is a very pleasant 53-year-old male who has been having pain specifically to the distal tip and the dorsal aspect of the right second proximal interphalangeal joint secondary to a severely rigid contracture for a long time now. The patient has failed all conservative modalities and would like to proceed with surgical intervention. The patient understands all risks, complications and benefits of surgical intervention at this time including but not limited to infection, hematoma, seroma, possibility of delayed wound healing, nonwound healing and possible failure of surgical intervention. Plenty of time was allowed for the patient to ask questions which were answered to his apparent satisfaction. It is at this time we decided to proceed. DESCRIPTION OF PROCEDURE AND FINDINGS: The patient was brought into the OR and placed on the OR table in the supine position. At this time, monitored anesthesia care was administered until the patient was adequately sedated. From this standpoint, the right lower extremity was prepped and draped in the typical sterile fashion. A well-padded ankle tourniquet was applied to the patient's right ankle and set to 250 mm of Mercury. The lower extremity was then prepped and draped and lowered onto the surgical field. At this time, 30 cc injection of 1:1 mixture of 1% lidocaine plain and 0.5% bupivacaine plain was injected in a metatarsal block-type fashion to the right lower extremity. After a sufficient amount of time, Esmarch was utilized to exsanguinate the foot and the tourniquet was inflated. A linear incision was made over the dorsal aspect of the metatarsal and the proximal and distal interphalangeal joints this was carried down to the extensor tendon. A Z-lengthening tenotomy was performed which was carried out of the way and retracted with pressure held underneath the metatarsal head. The toe was distracted. The capsular dissection took place and once again the position was severely contracted. At this time a Deanna osteotomy was performed pushing the metatarsal head back dropping the second digit in relationship with the metatarsal. From this standpoint, a 2.0 x 14 partially threaded headed screw was introduced into the capital fragment holding its position. The dorsal overhang was then resected. Following this, attention was directed to the proximal interphalangeal joint and the distal interphalangeal joint where the joints were resected utilizing 18 mm sagittal saw holding the toe in the appropriate position this was retrograded out of the tip of the toe and anterograded down to the proximal phalanx checking on multiple views to be within the bone. At this time, a 3.0 x 40 mm screw was introduced from the distal tip and deemed to be in an adequate position. Following this, copious amounts of sterile saline were utilized to flush the surgical sites. 4-0 Monocryl was utilized to coapt the subcutaneous skin edges, 3-0 Nylon was utilized to coapt the skin edges in a simple interrupted-type fashion. A dressing consisting of Betadine, Adaptic, 4x4, Kerlix and GABRIEL was applied to the patient's right lower extremity. The patient was then reversed from anesthesia and returned to the postoperative anesthesia care unit with vital signs stable and vascular status intact. The patient handled the anesthesia as well as the procedure without significant complication. Postoperative orders as indicated in the patient's discharge chart.
== END 2023-11-02 11:58 | disposition home or self-care (01) ==
LOC: SDC 06:23
PROVIDERS: ATTEND Podiatrist Foot & Ankle Surgery
DX: M20.41 Other hammer toe(s) (acquired), right foot (principal); M79.671 Pain in right foot; M21.961 Unspecified acquired deformity of right lower leg; I10 Essential (primary) hypertension; Z79.01 Long term (current) use of anticoagulants
CPT/HCPCS: 28285; 28308; 36415; 73630; 76000; 80053; 82248; 85025; 85610; 85730; J0690; J2250; J2704; J3010

== ENCOUNTER 2023-11-20 14:41 | Emergency (ER) | payer MEDICARE ==
[2023-11-20 15:13] VITALS: TEMP 95.1; O2SAT 94
--- NOTE | 2023-11-20 15:43 | ERPHSYRPT ---
- History of Present Illness Time Seen by Provider: 11/20/23 15:38 Source: patient, family Exam Limitations: clinical condition Patient Subjective Stated Complaint: Confusion and auditory hallucinations Triage Nursing Assessment: Patient reports to ER with c/o confusion, visual hallucinations, nausea, dizziness and sleep disturbances x 4 days. Patient also reports that he has not had his psych medications x 4 days because he ran out. Patient reports pain 8/10 at this time to right foot due to surgery a couple of weeks ago. Removed dressing to right foot and noted 11 intact sutures to 2nd digit- no redness or drainage present. Patient has history of chronic liver disease and takes lactulose - patient and nephew state that patient has not had a bowel movement in 5-6 days. Abdomen appears distended and patient reports tenderness with palpation. Bowel sounds active x 4 quads and patient reports that he is passing gas. Physician History: Patient reports to ER with c/o confusion, visual hallucinations, nausea, d izziness and sleep disturbances x 4 days. Patient also reports that he has not had his psych medications x 4 days because he ran out. Patient reports pain 8/10 at this time to right foot due to surgery a couple of weeks ago. Removed dressing to right foot and noted 11 intact sutures to 2nd digit- no redness or drainage present. Patient has history of chronic liver disease and takes lactulose - patient and nephew state that patient has not had a bowel movement in 5-6 days. Patient is 53-year-old male with significant past medical history of morbid obesity hypertension liver cirrhosis severe peripheral vascular disease started having confusion visual hallucination nausea vomiting dizziness and sleep disturbance for last 4 to 5 days. Patient also does not have any bowel movement for last 3-4 5 to 6 days. Patient also has not taken his psychiatric medication for last 4 to 5 days. Patient also started having abdominal distention and confusion show he was brought into the emergency room by his nephew. Timing/Duration: day(s) Severity: moderate Associated Symptoms: nausea, weakness, No abdominal pain, No shortness of breath, No chest pain Allergies/Adverse Reactions: nitrofurantoin [From Macrobid] Allergy (Verified 11/20/23 15:19) Rash adhesive tape Adverse Reaction (Verified 11/20/23 15:19) Home Medications: Gabapentin 600 mg PO TID 05/01/22 [History] Metoprolol Tartrate 50 mg [Lopressor 50 MG] 100 mg PO BID 05/01/22 [History] Tizanidine HCl 4 mg [Zanaflex 4 MG] 4 mg PO Q8H PRN PRN 05/01/22 [History] Alprazolam [Xanax Xr] 1.5 mg PO QHS 08/11/22 [History] Fluticasone/Umeclidin/Vilanter [Trelegy Ellipta 200-62.5-25] 1 puffs IH DAILY 08/11/22 [History] Levothyroxine Sodium 175 mcg PO DAILY 08/11/22 [History] Ropinirole HCl 0.5 mg [Requip 0.5 MG] 0.5 mg PO QHS 08/11/22 [History] Hx Tetanus, Diphtheria Vaccination/Date Given: Yes Hx Influenza Vaccination/Date Given: Yes Hx Pneumococcal Vaccination/Date Given: No Immunizations Up to Date: Yes Travel Risk - International Travel Have you traveled outside of the country in past 3 weeks: No - Emerging Infectious Disease Are you exhibiting symptoms associated with any current EIDs: No - Review of Systems Constitutional: Fatigue, Lethargy, Weakness Eyes: No Symptoms Ears, Nose, & Throat: No Symptoms Respiratory: No Symptoms Cardiac: No Symptoms, No Chest Pain, No Palpitations, No Syncope, No Orthopnea Abdominal/Gastrointestinal: Nausea, No Abdominal Pain Genitourinary Symptoms: No Symptoms Musculoskeletal: No Symptoms Skin: Cellulitis Neurological: Irritability, Speech Changes Psychological: Hallucinations Endocrine: No Symptoms Hematologic/Lymphatic: No Symptoms Immunological/Allergic: No Symptoms - Past Medical History Pertinent Past Medical History: Yes Neurological History: No Pertinent History ENT History: No Pertinent History Cardiac History: Arrhythmia, Congestive Heart Failure, Coronary Artery Disease, Hypertension Respiratory History: Asthma, Bronchitis, CHF, COPD, Pneumonia Endocrine Medical History: Hypothyroidism Musculoskeletal History: Osteoarthritis GI Medical History: Hepatitis, Cirrhosis History: No Pertinent History Psycho-Social History: Anxiety, Bipolar, Depression Male Reproductive Disorders: No Pertinent History Other Medical History: hepatitis A, B, C according to pt report. - Past Surgical History Past Surgical History: Yes Neuro Surgical History: No Pertinent History Cardiac: Cardiac Catheterization Respiratory: No Pertinent History Gastrointestinal: Cholecystectomy Genitourinary: No Pertinent History Musculoskeletal: Orthopedic Surgery Male Surgical History: No Pertinent History Other Surgical History: right knee arthroscopy. heart cath appx 5 years ago. - Social History Smoking Status: Current every day smoker How long have you smoked: 40 Exposure to second hand smoke: Yes Drug Use: none Patient Lives Alone: No - Nursing Vital Signs Nursing Vital Signs: Initial Vital Signs Temperature 95.1 F 11/20/23 14:50 Pulse Rate 92 H 11/20/23 14:50 Respiratory Rate 18 11/20/23 14:50 Blood Pressure 124/92 11/20/23 14:50 O2 Sat by Pulse Oximetry 94 L 11/20/23 14:50 Pain Scale Pain Intensity 8 - Physical Exam General Appearance: mild distress, alert Eye Exam: PERRL/EOMI, eyes nml inspection Ears, Nose, Throat Exam: normal ENT inspection, TMs normal, pharynx normal, moist mucous membranes Neck Exam: normal inspection, non-tender, supple, full range of motion Respiratory Exam: diminished breath sounds, crackles/rales, rhonchi, No respiratory distress Cardiovascular Exam: regular rate/rhythm, normal heart sounds, normal peripheral pulses Gastrointestinal/Abdomen Exam: distention, No tenderness, No mass Back Exam: normal inspection, normal range of motion, No CVA tenderness, No vertebral tenderness Extremity Exam: normal inspection, normal range of motion, pelvis stable, infla mmation Neurologic Exam: alert, oriented x 3, cooperative, intoxicated appearance, slurred speech, No motor deficits Skin Exam: normal color, warm, dry, No rash Lymphatic Exam: No adenopathy SpO2: 94 - Course Nursing assessment & vital signs reviewed: Yes - CT Exams Abdomen/Pelvis CT Interpretation: Tele-radiologist Report Ordered Tests: Active Orders 24 hr Category Date Time Status ABDOMEN AND PELVIS W/0 CONTRAS [CT] Stat Exams 11/20/23 15:12 Completed AMYLASE Stat Lab 11/20/23 15:42 Completed CBC W DIFF Stat Lab 11/20/23 15:42 Completed CMP Stat Lab 11/20/23 15:42 Completed LIPASE Stat Lab 11/20/23 15:42 Completed UA W/RFX UR CULTURE Stat Lab 11/20/23 15:11 Ordered Medication Summary Discontinued Medications Generic Name Dose Route Start Last Admin Trade Name Freq PRN Reason Stop Dose Admin Sodium Chloride 1,000 mls @ 999 mls/hr 11/20/23 15:11 11/20/23 16:54 Sodium Chloride 0.9% 1000 Ml IV 11/20/23 16:11 999 mls/hr .Q1H1M STA Administration Sodium Chloride Confirm 11/20/23 16:53 Sodium Chloride 0.9% 1000 Ml Administered 11/20/23 16:54 Dose 1,000 mls @ ud .ROUTE .STK-MED ONE Lab/Rad Data: Laboratory Result Diagrams 11/20/23 15:42 11/20/23 15:42 Laboratory Results 11/20/23 11/20/23 11/20/23 Range/Units 15:42 15:42 15:42 WBC 11.3 H (4.0-10.5) x10^3/uL RBC 6.08 H (4.1-5.6) x10^6/uL Hgb 18.8 H (12.5-18.0) g/dL Hct 56.1 H (42-50) % MCV 92.3 (78-100) fL MCH 30.9 (26-32) pg MCHC 33.5 (32-36) g/dL RDW 15.8 H (11.5-14.0) % Plt Count 122 L (150-450) x10^3/uL MPV 11.5 H (7.5-11.0) fL Gran % 66.5 H (36.0-66.0) % Immature Gran % (Auto) 0.4 (0.00-0.4) % Nucleat RBC Rel Count 0.0 (0.00-0.1) % Eos # (Auto) 0.18 (0-0.5) x10^3/uL Immature Gran # (Auto) 0.05 H (0.00-0.03) x10^3u/L Absolute Lymphs (auto) 2.29 (1.0-4.6) x10^3/uL Absolute Monos (auto) 1.15 (0.0-1.3) x10^3/uL Absolute Nucleated RBC 0.00 (0.00-0.01) x10^3u/L Lymphocytes % 20.2 L (24.0-44.0) % Monocytes % 10.2 (0.0-12.0) % Eosinophils % 1.6 (0.00-5.0) % Basophils % 1.1 (0.0-0.4) % Absolute Granulocytes 7.51 H (1.4-6.9) x10^3/uL Basophils # 0.13 (0-0.4) x10^3/uL Sodium 139 (135-145) mmol/L Potassium 3.6 (3.5-5.1) mmol/L Chloride 104 (98-107) mmol/L Carbon Dioxide 25 (22-30) mmol/L Anion Gap 13.8 (5-15) MEQ/L BUN 10 (9-20) mg/dL Creatinine 0.79 (0.66-1.25) mg/dL Estimated GFR 105.6 ML/MIN Glucose 107 H (74-106) mg/dL Calcium 9.1 (8.4-10.2) mg/dL Total Bilirubin 1.80 H (0.2-1.3) mg/dL AST 37 (17-59) U/L ALT 23 (0-50) U/L Alkaline Phosphatase 96 (38-126) U/L Ammonia 17 (9-30) umol/L Troponin 0.09 H (0.00-0.03) ng/mL Serum Total Protein 7.8 (6.3-8.2) g/dL Albumin 3.6 (3.5-5.0) g/dL Amylase 46 (30-110) U/L Lipase 37 (23-300) U/L CT/ABDOMEN AND PELVIS W/0 CONTRAS CLINICAL HISTORY: abdominal distension TECHNIQUE: A CT scan of the abdomen and pelvis was performed without IV contrast. Coronal and sagittal reconstructive images were also obtained. COMPARISON: None FINDINGS: Cirrhotic liver configuration manifested by bossy nodular outline, hypertrophied left and caudate lobe, and shrunken right hepatic lobe. The parenchyma can't be properly assessed for the presence of focal lesions due to lack of contrast injection yet there is no obvious hypo or hyperdense lesions based on non-contrast study. The intrahepatic biliary radicles are not dilated. The portal vein appears dilated measuring about 16 mm. The gall bladder is not visualized, likely surgically removed with surgical waldo seen. Normal CT of both kidneys showing preserved parenchymal thickness. No stones or hydronephrotic changes. No obstructing stones seen along the course of both ureters. Retroaortic left renal vein (normal variant) The spleen is enlarged measuring about 16 cm in long axis The adrenal glands are unremarkable. Fatty atrophic changes of the pancreas. Unremarkable prostate and seminal vesicles. Few pelvic phleboli. Dolicho sigmoid colon with no exophytic masses. The ascending colon, the transverse colon, the descending colon, visualized small bowel loops are unremarkable. Normal appearing appendix. No Ascites. There is no evidence of significant enlargement of the mesenteric or retroperitoneal lymph nodes. No evidence of pelvic lymphadenopathy. The urinary bladder is partially distended. Right pelvic phlebolith not to be mistaken as stone. Atheromatous calcifications of the abdominal aorta and iliac vessels. Scanned lung bases showed the left lower lobe a few ground glass nodules/branching nodules. Dorsolumbar spondylosis with multilevel Schmorl's nodes surrounded by degenerative sclerosis. IMPRESSION: 1. Limited organ parenchymal evaluation within the limitations of non-contrast study. 2. Cirrhotic liver configuration. The parenchyma can't be properly assessed for the presence of focal lesions within the limitations of non-contrast study. 3. Splenomegaly. 4. A Portal vein appears dilated measuring about 16 mm. 5. Dolicho sigmoid colon with no exophytic masses. 6. Scanned lung bases showed the left lower lobe a few ground glass nodules/branching nodules, possibly inflammatory, laboratory and clinical correlation is advised. - Progress Progress: improved Progress Note: 11/20/23 17:30 Patient all labs are unremarkable including CAT scan of the abdomen and pelvis but troponin is 0.09 normal ranges 0.03 patient denies any chest pain or any other heart related symptoms patient is alert awake EKG appears normal no acute changes. Counseled pt/family regarding: lab results, diagnosis, need for follow-up, rad results Medical Desision Making - Independent Historian Additional History obtained from: Family - Diagnostic Testing Diagnostic test were ordered, analyzed, and reviewed by me: Yes Radiological Interpretation: Teleradiologist Report - Risk of complications Low Risk: Low risk of morbidity from additional dx testing or treatment - Departure Departure Disposition: Home Clinical Impression: Confusion and disorientation, Hallucinations, unspecified, Morbid (severe) obesity with alveolar hypoventilation, Liver disease, chronic, with cirrhosis, Nonadherence to medication, Elevated troponin level not due myocardial infarction Cirrhosis Qualifiers: Hepatic cirrhosis type: alcoholic cirrhosis Ascites presence: unspecified Qualified Code(s): K70.30 - Alcoholic cirrhosis of liver without ascites Depression, major, in partial remission Qualifiers: Major depression recurrence: unspecified whether recurrent Qualified Code(s): F32.4 - Major depressive disorder, single episode, in partial remission Condition: Stable Critical Care Time: No Referrals: KETAN ECHEVARRIA [Primary Care Provider] - Follow up/PCP as directed Instructions: Delirium (Confusion) (DC) Additional Instructions: Discharge/Care Plan JUAN DAVID CAMPOS was seen on 11/20/23 in the Emergency Room. The patient was counseled regarding Diagnosis,Lab results, Imaging studies, need for follow up and when to return to the Emergency Room. Prescriptions given: Discharge Note I have spoken with the patient and/or caregivers. I have explained the patient's condition, diagnosis and treatment plan based on the information available to me at this time. I have answered the patient's and/or caregiver's questions and addressed any concerns. The patient and/or caregivers have as good understanding of the patient's diagnosis, condition and treatment plan as can be expected at this point. The vital signs have been stable. The patient's condition is stable and appropriate for discharge from the emergency department. The patient will pursue further outpatient evaluation with the primary care physician or other designated or consulting physician as outlined in the discharge instructions. The patient and/or caregivers are agreeable to this plan of care and follow-up instructions have been explained in detail. The patient and/or caregivers have received these instruction. The patient/and or caregivers are aware that any significant change in condition or worsening of symptoms should prompt an immediate return to this or the closest emergency department or call 911. JUAN DAVID CAMPOS was seen on 11/20/23 n the Emergency Room. At that time you were treated for an emergent condition, during your visit Laboratory, Radiology and/or other procedures may have been ordered. It is very important that you follow-up with your Primary Care Physician KETAN ECHEVARRIA within the next 24-48 hours to review your Emergency Room visit and the final results of testing that was ordered. Some test results such as Urine Cultures, Blood Cultures, and other cultures if ordered will not be finalized for 24-48 hours. If you do not have a Primary Care Provider please call the medical records department at [phone] ext [phone] to obtain a copy of your results or you may sign into our patient portal to obtain these results by visiting us @ [email or web address] and completing the following steps: 1. Click on the Patient Portal link 2. Click the Patient Self Enrollment Link to complete the enrollment form and entering your 3. Once the enrollment form is completed you will receive an email with a tempor rhonda ID and password at the email address you provided. 4. Next choose a user name and password. Your user name must be at least 4 characters long and your password must be at least 4 characters long. 5. Choose a security question from the list and provide your answer to the question. If you already have signed into the Health Portal you may access your Health Care Information 22/03 by the following steps: 1. Login to our website @ [email or web address] 2. Enter your original user name and password. FAQS The [facility] Portal is an online tool that contains your Lab Results, Radiology Reports, Visit History, Discharge Instructions and Health Summary Lab and Radiology Results will not be available for 72 hours on the portal. The Portal is a secure site, passwords are encryted and URLs are re-written so they cannot be copied and pasted. You and authorized family members are the only ones who can access your Portal. Also there is a timeout feature that protects your information if you leave the Portal page open. If you have technical difficulty please use the Contact Us link on the page this will allow you to submit any questions you have regarding the Portal or you may contact the Medical Record Department at [phone]. Prescriptions: Hydroxyzine HCl 25 mg [Atarax 25 mg] 25 mg PO TID PRN PRN #45 tablet PRN Reason: Itching Fluoxetine HCl 20 mg [Prozac 20 MG] 20 mg PO HS #30 cap
[2023-11-20 15:47] LABS: Absolute Neutrophil Ct (ANC) 7.51 x10^3/uL (1.4-6.9); BASOPHIL % 1.1 % (0.0-0.4); Basophil (Absolute #) 0.13 x10^3/uL (0-0.4); Eosinophil % 1.6 % (0.00-5.0); Eosinophil (Absolute #) 0.18 x10^3/uL (0-0.5); Hematocrit 56.1 % (42-50); Hemoglobin 18.8 g/dL (12.5-18.0); IMMATURE GRAN # 0.05 x10^3u/L (0.00-0.03); IMMATURE GRAN % 0.4 % (0.00-0.4); Lymphocyte (Absolute #) 2.29 x10^3/uL (1.0-4.6); Lymphocytes % 20.2 % (24.0-44.0); Mean Cell Volume 92.3 fL (78-100); Mean Corpuscular Hemoglobin 30.9 pg (26-32); Mean Corpuscular Hgb Concent. 33.5 g/dL (32-36); Mean Platelet Volume 11.5 fL (7.5-11.0); Monocyte (Absolute #) 1.15 x10^3/uL (0.0-1.3); Monocytes % 10.2 % (0.0-12.0); Neutrophil % 66.5 % (36.0-66.0); Platelet Count 122 x10^3/uL (150-450); Red Blood Count 6.08 x10^6/uL (4.1-5.6); Red Cell Distribution Width 15.8 % (11.5-14.0); White Blood Count 11.3 x10^3/uL (4.0-10.5)
[2023-11-20 16:03] LABS: ALBUMIN 3.6 g/dL (3.5-5.0); ANION GAP 13.8 MEQ/L (5-15); BILIRUBIN,TOTAL 1.8 mg/dL (0.2-1.3); Calcium 9.1 mg/dL (8.4-10.2); Creatinine 1 0.79 mg/dL (0.66-1.25); EST GLOMERULAR FILTRATION RATE 105.6 ML/MIN; Potassium 3.6 mmol/L (3.5-5.1); Total Protein 7.8 g/dL (6.3-8.2)
[2023-11-20 16:24] LABS: ISTAT cTNI 0.09 ng/mL (0.00-0.03)
[2023-11-20] MEDS ORDERED: Sodium Chloride 0.9% 1000 ML 1,000 ML ONE (16:53)
[2023-11-20] MEDS: Sodium Chloride 0.9% 1000 ML 1,000 ML IV STA (16:54)
--- NOTE | 2023-11-20 17:01 | XRAY ---
CLINICAL HISTORY: abdominal distension TECHNIQUE: A CT scan of the abdomen and pelvis was performed without IV contrast. Coronal and sagittal reconstructive images were also obtained. COMPARISON: None FINDINGS: Cirrhotic liver configuration manifested by bossy nodular outline, hypertrophied left and caudate lobe, and shrunken right hepatic lobe. The parenchyma can't be properly assessed for the presence of focal lesions due to lack of contrast injection yet there is no obvious hypo or hyperdense lesions based on non-contrast study. The intrahepatic biliary radicles are not dilated. The portal vein appears dilated measuring about 16 mm. The gall bladder is not visualized, likely surgically removed with surgical waldo seen. Normal CT of both kidneys showing preserved parenchymal thickness. No stones or hydronephrotic changes. No obstructing stones seen along the course of both ureters. Retroaortic left renal vein (normal variant) The spleen is enlarged measuring about 16 cm in long axis The adrenal glands are unremarkable. Fatty atrophic changes of the pancreas. Unremarkable prostate and seminal vesicles. Few pelvic phleboli. Dolicho sigmoid colon with no exophytic masses. The ascending colon, the transverse colon, the descending colon, visualized small bowel loops are unremarkable. Normal appearing appendix. No Ascites. There is no evidence of significant enlargement of the mesenteric or retroperitoneal lymph nodes. No evidence of pelvic lymphadenopathy. The urinary bladder is partially distended. Right pelvic phlebolith not to be mistaken as stone. Atheromatous calcifications of the abdominal aorta and iliac vessels. Scanned lung bases showed the left lower lobe a few ground glass nodules/branching nodules. Dorsolumbar spondylosis with multilevel Schmorl's nodes surrounded by degenerative sclerosis. IMPRESSION: 1. Limited organ parenchymal evaluation within the limitations of non-contrast study. 2. Cirrhotic liver configuration. The parenchyma can't be properly assessed for the presence of focal lesions within the limitations of non-contrast study. 3. Splenomegaly. 4. A Portal vein appears dilated measuring about 16 mm. 5. Dolicho sigmoid colon with no exophytic masses. 6. Scanned lung bases showed the left lower lobe a few ground glass nodules/branching nodules, possibly inflammatory, laboratory and clinical correlation is advised. Electronically Signed by: Shannan Head MD. (11/20/2023 16:57:14 EDT)
[2023-11-20 17:35] VITALS: PULSE 96; RESP 17
[2023-11-20 17:44] LABS: Slide Review 1 YES
[2023-11-20 18:01] LABS: Appearance Clear (Clear); Bacteria None Seen /HPF (None Seen); Bilirubin Negative (Negative); Blood Negative (Negative); Epithelial Cells None Seen /HPF (None Seen); Glucose, Urine Negative (Negative); Hyaline Casts NONE SEEN /LPF (0-2); Ketones Negative (Negative); Leukocyte Esterase Negative (Negative); Nitrite Negative (Negative); Protein,Urine Dip Negative (Negative); RBC 0-2 /HPF (0-5); Specific Gravity <=1.005 (1.005-1.030); WBC 0-2 /HPF (0-5)
[2023-11-20 18:02] LABS: ADD URINE CULTURE? NO (NO)
[2023-11-20 18:38] VITALS: BP 112/89
== END 2023-11-20 18:49 | disposition home or self-care (01) ==
LOC: ED 14:41
DX: R41.0 Disorientation, unspecified (principal); R44.3 Hallucinations, unspecified; E66.2 Morbid (severe) obesity with alveolar hypoventilation; Z91.148 Patient's other noncompliance with medication regimen for other reason; R77.8 Other specified abnormalities of plasma proteins; K70.30 Alcoholic cirrhosis of liver without ascites; F32.4 Major depressive disorder, single episode, in partial remission; R11.0 Nausea; R42 Dizziness and giddiness; G47.9 Sleep disorder, unspecified; I11.0 Hypertensive heart disease with heart failure; I50.9 Heart failure, unspecified; Z79.899 Other long term (current) drug therapy; Z72.0 Tobacco use
CPT/HCPCS: 36000; 36415; 74176; 80053; 81001; 82140; 82150; 83690; 84484; 85025; 99284

== ENCOUNTER 2024-07-12 08:23 | Inpatient (IN) | payer MEDICARE ==
[2024-07-12] MEDS ORDERED: DUONEB 0.5-3 MG/3 ml Neb IH ONE ×2 (08:28→12:47)
--- NOTE | 2024-07-12 08:37 | ERPHSYRPT ---
- History of Present Illness Time Seen by Provider: 07/12/24 08:35 Source: patient Exam Limitations: clinical condition Patient Subjective Stated Complaint: Pt c/o of cough and shortness of breath that began yesterday Triage Nursing Assessment: Pt brought to the ER by a family member, hypertensive, tachycardic, rates chest and back pain when he coughs as 06/08, reports that the cough and SOB just began yesterday, lungs coarse, pulses normal, pt looked dior upon arrival and has pinked up, doesn't appear to be in any distress Physician History: This is a morbidly obese 54-year-old white male patient who arrives by private vehicle and is a patient of primary care provider Jarred and harbor master Keenan Fierro and presents with fever, shortness of breath and coughing that began yesterday. He has no known exposures to individuals similar symptoms or who have been diagnosed with flu's. Ordinarily, the patient wears 2 L of oxygen via nasal cannula. However, last evening he needed to increase the oxygen level to 6 L. He is a daily smoker of cigarettes. He does have a history of arrhythmia and is on Eliquis. He has a history of oxygen dependent COPD, hypothyroidism, depression, anxiety, cirrhosis and hepatitis, coronary disease, CHF, hypertension. He currently does not have chest pain or abdominal pain. His oxygen saturation levels 91% on 6 L of oxygen via nasal cannula Timing/Duration: yesterday Activities at Onset: none Severity of Dyspnea-Max: moderate Severity of Dyspnea-Current: moderate Possible Cause: frequent episodes Modifying Factors: Improves With: coughing, oxygen, rest Associated Symptoms: cough, No chest pain/discomfort Allergies/Adverse Reactions: nitrofurantoin [From Macrobid] Allergy (Verified 07/12/24 08:34) Rash adhesive tape Adverse Reaction (Verified 07/12/24 08:34) Home Medications: Gabapentin 600 mg PO TID 05/01/22 [History] Metoprolol Tartrate 50 mg [Lopressor 50 MG] 100 mg PO BID 05/01/22 [History] Levothyroxine Sodium 175 mcg PO DAILY 08/11/22 [History] Ropinirole HCl 0.5 mg [Requip 0.5 MG] 0.5 mg PO QHS 08/11/22 [History] ALPRAZolam [Alprazolam] 0.5 mg PO TID PRN 07/12/24 [History] Fluoxetine HCl 20 mg [Prozac 20 MG] 40 mg PO HS 07/12/24 [History] Quetiapine Fumarate [Seroquel] 50 mg PO HS 07/12/24 [History] Trazodone HCl 100 mg PO HS 07/12/24 [History] Hx Tetanus, Diphtheria Vaccination/Date Given: Yes Hx Influenza Vaccination/Date Given: Yes Hx Pneumococcal Vaccination/Date Given: No Travel Risk - International Travel Have you traveled outside of the country in past 3 weeks: No - Emerging Infectious Disease Are you exhibiting symptoms associated with any current EIDs: Yes Symptoms: Cough: New Onset, Shortness of Breath - Review of Systems Constitutional: Fever (Fever at home but not here in the emergency department) Eyes: No Symptoms Ears, Nose, & Throat: No Symptoms Respiratory: Cough, Dyspnea Cardiac: No Symptoms Abdominal/Gastrointestinal: No Symptoms Genitourinary Symptoms: No Symptoms Musculoskeletal: No Symptoms Skin: No Symptoms Neurological: No Symptoms Psychological: No Symptoms Endocrine: No Symptoms Hematologic/Lymphatic: No Symptoms Immunological/Allergic: No Symptoms All Other Systems: Reviewed and Negative - Past Medical History Pertinent Past Medical History: Yes Neurological History: No Pertinent History ENT History: No Pertinent History Cardiac History: Arrhythmia, Congestive Heart Failure, Coronary Artery Disease, Hypertension Respiratory History: Asthma, Bronchitis, CHF, COPD, Pneumonia Endocrine Medical History: Hypothyroidism Musculoskeletal History: Osteoarthritis GI Medical History: Hepatitis, Cirrhosis History: No Pertinent History Psycho-Social History: Anxiety, Bipolar, Depression Male Reproductive Disorders: No Pertinent History Other Medical History: hepatitis A, B, C according to pt report. - Past Surgical History Past Surgical History: Yes Neuro Surgical History: No Pertinent History Cardiac: Cardiac Catheterization Respiratory: No Pertinent History Gastrointestinal: Cholecystectomy Genitourinary: No Pertinent History Musculoskeletal: Orthopedic Surgery Male Surgical History: No Pertinent History Other Surgical History: right knee arthroscopy. heart cath appx 5 years ago. - Social History Smoking Status: Former smoker How long have you smoked: 40 Exposure to second hand smoke: No Drug Use: none Patient Lives Alone: No - Social Determinants of Health Will the patient participate in the screening: Yes Do you worry about a steady place to live?: No Do you have any problems with any of the following?: No known problems In the past 12 months,have you had to go without utilities?: No Transportation Issues: No Has anyone in your support network made you feel unsafe?: No Have you or anyone in your house had to go without enough: No - Nursing Vital Signs Nursing Vital Signs: Initial Vital Signs Temperature 98.7 F 07/12/24 08:24 Pulse Rate 105 H 07/12/24 08:24 Respiratory Rate 10 L 07/12/24 08:24 Blood Pressure 139/84 07/12/24 08:24 O2 Sat by Pulse Oximetry 91 L 07/12/24 08:24 Pain Scale Pain Intensity 4 - Physical Exam General Appearance: mild distress, alert, obese Eye Exam: PERRL/EOMI, eyes nml inspection Ears, Nose, Throat Exam: hearing grossly normal, normal ENT inspection, normal pharynx Neck Exam: normal inspection, non-tender, supple, full range of motion Respiratory Exam: respiratory distress, rhonchi (Mild bilateral), No chest tenderness Cardiovascular/Chest Exam: tachycardia Abdominal/Gastrointestinal Exam: soft, normal bowel sounds, No tenderness Rectal Exam: not done Extremity Exam: non-tender, normal range of motion, normal inspection, normal capillary refill, no calf tenderness, no pedal edema, pelvis stable Neurologic Exam: alert, oriented x 3, cooperative, restorative rehab aide II-XII nml as tested, nml cerebellar function, nml station & gait, sensation nml Skin Exam: normal color, warm, dry Lymphatic Exam: No adenopathy SpO2 Interpretation: hypoxic, ABG ordered SpO2: 91 O2 Delivery: Nasal Cannula (Even on an increase of 6 L oxygen via nasal cannula) - Course Nursing assessment & vital signs reviewed: Yes Ordered Tests: Active Orders 24 hr Category Date Time Status Ampoule Inspector STAT Care 07/12/24 08:38 Active EKG-ER Only STAT Care 07/12/24 08:37 Active IV Insertion STAT Care 07/12/24 08:37 Active Pulse Oximetry (ED) STAT Care 07/12/24 08:37 Active CHEST 1 VIEW (PORTABLE) Stat Exams 07/12/24 08:38 Completed CHEST WITH CONTRAST [CT] Stat Exams 07/12/24 11:45 Completed ARTERIAL BLOOD GASES Stat Lab 07/12/24 08:48 Completed BLOOD CULTURE Stat Lab 07/12/24 09:10 Received CBC W DIFF Stat Lab 07/12/24 09:10 Completed CMP Stat Lab 07/12/24 09:10 Completed CULTURE,SPUTUM Stat Lab 07/12/24 10:45 Received Lactic Acid Stat Lab 07/12/24 08:48 Completed Lactic Acid Stat Lab 07/12/24 10:51 Completed MAGNESIUM Stat Lab 07/12/24 09:10 Completed NT PRO BNPII Stat Lab 07/12/24 09:10 Completed TROPONIN Q4H Lab 07/12/24 09:10 Completed TROPONIN Q4H Lab 07/12/24 12:43 Completed TROPONIN Q4H Lab 07/12/24 16:45 Ordered Respiratory Therapy Assessment DAILY RT 07/12/24 08:42 Active Medication Summary Generic Name Dose Route Start Last Admin Trade Name Freq PRN Reason Stop Dose Admin Sodium Chloride 250 mls @ 250 mls/hr 07/12/24 12:00 07/12/24 12:42 Sodium Chloride 0.9% 250 Ml IV 07/12/24 12:59 250 mls/hr .Q1H MENDEL Administration Discontinued Medications Generic Name Dose Route Start Last Admin Trade Name Freq PRN Reason Stop Dose Admin Hydrocodone Bitart/Acetaminophen 10 ml 07/12/24 10:57 07/12/24 11:02 Hydrocodone/Acetaminophen 5 Ml Udcup PO 07/12/24 10:58 10 ml STAT STA Administration Hydrocodone Bitart/Acetaminophen Confirm 07/12/24 11:00 Hydrocodone/Acetaminophen 5 Ml Udcup Administered 07/12/24 11:01 Dose 10 ml .ROUTE .STK-MED ONE Albuterol/Ipratropium Confirm 07/12/24 08:28 Ipratropium/Albuterol Sulfate 3 Ml Ampul.Neb Administered 07/12/24 08:29 Dose 3 ml IH .STK-MED ONE Albuterol/Ipratropium 3 ml 07/12/24 08:40 07/12/24 08:41 Ipratropium/Albuterol Sulfate 3 Ml Ampul.Neb IH 07/12/24 08:41 3 ml STAT ONE Administration Albuterol/Ipratropium Confirm 07/12/24 12:47 Ipratropium/Albuterol Sulfate 3 Ml Ampul.Neb Administered 07/12/24 12:48 Dose 3 ml IH .STK-MED ONE Albuterol/Ipratropium 3 ml 07/12/24 12:50 07/12/24 12:51 Ipratropium/Albuterol Sulfate 3 Ml Ampul.Neb IH 07/12/24 12:51 3 ml STAT ONE Administration Methylprednisolone Sodium 0 mg 07/12/24 08:37 07/12/24 09:10 Succinate 125 mg/ Sterile IV 07/12/24 08:38 125 mg Water 2 ml STAT ONE Administration Furosemide 40 mg 07/12/24 13:12 07/12/24 13:16 Furosemide 40 Mg/4 Ml Vial IV 07/12/24 13:13 40 mg STAT ONE Administration Furosemide Confirm 07/12/24 13:15 Furosemide 40 Mg/4 Ml Vial Administered 07/12/24 13:16 Dose 40 mg .ROUTE .STK-MED ONE Methylprednisolone Sodium Succinate Confirm 07/12/24 09:08 Methylprednis Sod Succ 125 Mg/2 Ml Vial Administered 07/12/24 09:09 Dose 125 mg .ROUTE .STK-MED ONE Ondansetron HCl 4 mg 07/12/24 10:57 07/12/24 11:02 Ondansetron Hcl 4 Mg/2 Ml Vial IV 07/12/24 10:58 4 mg STAT ONE Administration Ondansetron HCl Confirm 07/12/24 11:00 Ondansetron Hcl 4 Mg/2 Ml Vial Administered 07/12/24 11:01 Dose 4 mg .ROUTE .STK-MED ONE Sterile Water Confirm 07/12/24 09:08 Water For Injection,Sterile 10 Ml Vial Administered 07/12/24 09:09 Dose 10 ml IJ .STK-MED ONE Lab/Rad Data: Laboratory Result Diagrams 07/12/24 09:10 07/12/24 09:10 Laboratory Results 07/12/24 07/12/24 07/12/24 Range/Units 12:43 10:51 09:10 WBC (4.23-9.07) x10^3/uL RBC (4.63-6.08) x10^6/uL Hgb (13.7-17.5) g/dL Hct (40.1-51.0) % MCV (79.0-92.2) fL MCH (25.7-32.2) pg MCHC (32.3-36.5) g/dL RDW (11.6-14.4) % Plt Count (163-337) x10^3/uL MPV (9.4-12.4) fL Gran % (34.0-67.9) % Immature Gran % (Auto) (0.001-0.429) % Nucleat RBC Rel Count (0.00-0.2) % Eos # (Auto) (0.04-0.54) x10^3/uL Immature Gran # (Auto) (0.001-0.031) x10^3u/L Absolute Lymphs (auto) (1.32-3.57) x10^3/uL Absolute Monos (auto) (0.30-0.82) x10^3/uL Absolute Nucleated RBC (0.00-0.012) x10^3u/L Lymphocytes % (21.8-53.1) % Monocytes % (5.3-12.2) % Eosinophils % (0.8-7.0) % Basophils % (0.2-1.2) % Absolute Granulocytes (1.78-5.38) x10^3/uL Basophils # (0.01-0.08) x10^3/uL Puncture Site pCO2 (35-45) mmHg pO2 (75-100) mmHg Base Excess (-2.0-2.0) O2 Saturation (94-100) g/dF ABG pH (7.35-7.45) ABG HCO3 (22-28) ABG O2 Sat (Measured) (95-100) % Gideon Test A-a Gradient a/A Ratio Hemoglobin Carboxyhemoglobin (0.0-6.9) % THgb Methemoglobin (1.4-1.5) % Potassium (3.5-5.1) Temperature C POC O2 Flow Rate % Sodium (135-145) mmol/L Chloride (98-107) mmol/L Carbon Dioxide (22-30) mmol/L Anion Gap (5-15) MEQ/L BUN (9-20) mg/dL Creatinine (0.66-1.25) mg/dL Estimated GFR ML/MIN Glucose (74-106) mg/dL Lactic Acid 3.9 H (0.4-2.0) Calcium (8.4-10.2) mg/dL Magnesium (1.6-2.3) mg/dL Total Bilirubin (0.2-1.3) mg/dL AST (17-59) U/L ALT (0-50) U/L Alkaline Phosphatase (38-126) U/L Troponin I < 0.012 (0.000-0.033) ng/mL NT-Pro-B Natriuret Pep (<300) pg/mL Serum Total Protein (6.3-8.2) g/dL Albumin (3.5-5.0) g/dL Influenza Type A Ag NEGATIVE (NEGATIVE) Influenza Type B Ag NEGATIVE (NEGATIVE) RSV (PCR) NEGATIVE (NEGATIVE) SARS-CoV-2 (PCR) NEGATIVE (NEGATIVE) 07/12/24 07/12/24 07/12/24 Range/Units 09:10 09:10 09:10 WBC 5.4 (4.23-9.07) x10^3/uL RBC 5.32 (4.63-6.08) x10^6/uL Hgb 16.1 (13.7-17.5) g/dL Hct 49.6 (40.1-51.0) % MCV 93.2 H (79.0-92.2) fL MCH 30.3 (25.7-32.2) pg MCHC 32.5 (32.3-36.5) g/dL RDW 15.9 H (11.6-14.4) % Plt Count 54 L (163-337) x10^3/uL MPV 12.5 H (9.4-12.4) fL Gran % 79.3 H (34.0-67.9) % Immature Gran % (Auto) 0.2 (0.001-0.429) % Nucleat RBC Rel Count 0.0 (0.00-0.2) % Eos # (Auto) 0.03 L (0.04-0.54) x10^3/uL Immature Gran # (Auto) 0.01 (0.001-0.031) x10^3u/L Absolute Lymphs (auto) 0.51 L (1.32-3.57) x10^3/uL Absolute Monos (auto) 0.51 (0.30-0.82) x10^3/uL Absolute Nucleated RBC 0.00 (0.00-0.012) x10^3u/L Lymphocytes % 9.5 L (21.8-53.1) % Monocytes % 9.5 (5.3-12.2) % Eosinophils % 0.6 L (0.8-7.0) % Basophils % 0.9 (0.2-1.2) % Absolute Granulocytes 4.24 (1.78-5.38) x10^3/uL Basophils # 0.05 (0.01-0.08) x10^3/uL Puncture Site pCO2 (35-45) mmHg pO2 (75-100) mmHg Base Excess (-2.0-2.0) O2 Saturation (94-100) g/dF ABG pH (7.35-7.45) ABG HCO3 (22-28) ABG O2 Sat (Measured) (95-100) % Gideon Test A-a Gradient a/A Ratio Hemoglobin Carboxyhemoglobin (0.0-6.9) % THgb Methemoglobin (1.4-1.5) % Potassium 3.7 (3.5-5.1) Temperature C POC O2 Flow Rate % Sodium 139 (135-145) mmol/L Chloride 99 (98-107) mmol/L Carbon Dioxide 34 H (22-30) mmol/L Anion Gap 9.4 (5-15) MEQ/L BUN 4 L (9-20) mg/dL Creatinine 0.65 L (0.66-1.25) mg/dL Estimated GFR 111.3 ML/MIN Glucose 114 H (74-106) mg/dL Lactic Acid (0.4-2.0) Calcium 8.5 (8.4-10.2) mg/dL Magnesium 1.4 L (1.6-2.3) mg/dL Total Bilirubin 1.20 (0.2-1.3) mg/dL AST 42 (17-59) U/L ALT 28 (0-50) U/L Alkaline Phosphatase 88 (38-126) U/L Troponin I < 0.012 (0.000-0.033) ng/mL NT-Pro-B Natriuret Pep 1680 (<300) pg/mL Serum Total Protein 7.2 (6.3-8.2) g/dL Albumin 3.2 L (3.5-5.0) g/dL Influenza Type A Ag (NEGATIVE) Influenza Type B Ag (NEGATIVE) RSV (PCR) (NEGATIVE) SARS-CoV-2 (PCR) (NEGATIVE) 07/12/24 Range/Units 08:48 WBC (4.23-9.07) x10^3/uL RBC (4.63-6.08) x10^6/uL Hgb (13.7-17.5) g/dL Hct (40.1-51.0) % MCV (79.0-92.2) fL MCH (25.7-32.2) pg MCHC (32.3-36.5) g/dL RDW (11.6-14.4) % Plt Count (163-337) x10^3/uL MPV (9.4-12.4) fL Gran % (34.0-67.9) % Immature Gran % (Auto) (0.001-0.429) % Nucleat RBC Rel Count (0.00-0.2) % Eos # (Auto) (0.04-0.54) x10^3/uL Immature Gran # (Auto) (0.001-0.031) x10^3u/L Absolute Lymphs (auto) (1.32-3.57) x10^3/uL Absolute Monos (auto) (0.30-0.82) x10^3/uL Absolute Nucleated RBC (0.00-0.012) x10^3u/L Lymphocytes % (21.8-53.1) % Monocytes % (5.3-12.2) % Eosinophils % (0.8-7.0) % Basophils % (0.2-1.2) % Absolute Granulocytes (1.78-5.38) x10^3/uL Basophils # (0.01-0.08) x10^3/uL Puncture Site LEFT RADIAL pCO2 40 (35-45) mmHg pO2 68 L (75-100) mmHg Base Excess 5.0 H (-2.0-2.0) O2 Saturation 91.8 L (94-100) g/dF ABG pH 7.47 H (7.35-7.45) ABG HCO3 29.1 H* (22-28) ABG O2 Sat (Measured) 95.7 (95-100) % Gideon Test YES A-a Gradient 196 a/A Ratio 0.26 Hemoglobin 16.8 Carboxyhemoglobin 2.8 (0.0-6.9) % THgb Methemoglobin 1.4 (1.4-1.5) % Potassium 3.5 (3.5-5.1) Temperature 37.0 C POC O2 Flow Rate 44 % Sodium (135-145) mmol/L Chloride (98-107) mmol/L Carbon Dioxide (22-30) mmol/L Anion Gap (5-15) MEQ/L BUN (9-20) mg/dL Creatinine (0.66-1.25) mg/dL Estimated GFR ML/MIN Glucose (74-106) mg/dL Lactic Acid 2.8 H (0.4-2.0) Calcium (8.4-10.2) mg/dL Magnesium (1.6-2.3) mg/dL Total Bilirubin (0.2-1.3) mg/dL AST (17-59) U/L ALT (0-50) U/L Alkaline Phosphatase (38-126) U/L Troponin I (0.000-0.033) ng/mL NT-Pro-B Natriuret Pep (<300) pg/mL Serum Total Protein (6.3-8.2) g/dL Albumin (3.5-5.0) g/dL Influenza Type A Ag (NEGATIVE) Influenza Type B Ag (NEGATIVE) RSV (PCR) (NEGATIVE) SARS-CoV-2 (PCR) (NEGATIVE) - Progress Progress: improved, re-examined Air Movement: fair Progress Note: 07/12/24 08:58 My medical decision making and the assignment of moderate to high complexity of this patient's medical issue today is based on review of the patient's past medical history, review of the patient's medication list, review patient drug allergy list, history present illness and physical findings on examination. The workup in this patient includes placement of intravenous line, respiratory therapy evaluation and management, CBC, CMP, lactic acid level, ABG, troponin level, BNP, viral swabs, chest x-ray. Differential diagnosis includes but is not limited to CHF exacerbation, COPD exacerbation, pneumonia, arrhythmia, myocardial infarction, viral illness 07/12/24 09:46 The chest x-ray was interpreted by the radiologist and I reviewed the impression. The impression states nonacute limited chest 07/12/24 13:43 I interpreted the patient's laboratory data results. Based on the laboratory data results this patient may have mild CHF. There are no other acute findings. CT scan of the chest with contrast was interpreted by the radiologist and I reviewed the impression. The impression states continued negative pulmonary embolus. No acute cardiopulmonary abnormalities. Clinically, the patient has not significantly improved with her interventions including respiratory therapy nebulizer treatments x 2, Solu-Medrol intravenously and furosemide. His radiographic and laboratory studies did not show anything acute or emergent. Patient was hypoxic when he came into the hospital and his lung sounds still show bilateral rhonchi. I spoke with telehospitalist, Dr. Strickland. I reviewed the patient history, presenting complaint, workup performed and the results and his current clinical condition. I do not feel this patient is ready to be discharged to home. Dr. Strickland agrees and we will place this patient in observation Blood Culture(s) Obtained: Yes Antibiotics given: No Discussed with Dr.: Other (Dr. Strickland) Counseled pt/family regarding: lab results, diagnosis, rad results Medical Desision Making - Independent Historian Additional History obtained from: Family - Discussion of managment Care discussed with:: hospitalist Reviewed:: Test results, Need for additional workup Agreed on:: place in obs Will see patient: in hospital - Diagnostic Testing Diagnostic test were ordered, analyzed, and reviewed by me: Yes Radiological Interpretation: Reviewed by me, Teleradiologist Report - Risk of complications The pt has a high risk of morbidity or mortality based on: Decision regarding hospitilization or escalation of hosp level of care - Departure Departure Disposition: Observation Clinical Impression: Hypoxia, Mild congestive heart failure, Rhonchi at both lung bases Condition: Fair Critical Care Time: Yes Critical Care Time(excluding separately billable procedures): Critical 30-74 mins (40) Referrals: KETAN ECHEVARRIA [Primary Care Provider] - Follow up/PCP as directed Instructions: Heart Failure
[2024-07-12] MEDS: DUONEB 0.5-3 MG/3 ml Neb IH ONE ×2 (08:41→12:51)
[2024-07-12 08:50] LABS: A-aADO2 196; ABG HEMOGLOBIN 16.8; ABG POTASSIUM 3.5 (3.5-5.1); ARTERIAL BLD GAS O2 SATURATION 95.7 % (95-100); ARTERIAL BLOOD GAS FIO2 44 %; ARTERIAL BLOOD GAS PCO2 40 mmHg (35-45); ARTERIAL BLOOD GAS PO2 68 mmHg (75-100); ARTERIAL BLOOD GAS pH 7.47 (7.35-7.45); CARBOXYHEMOGLOBIN 2.8 % THgb (0.0-6.9); HCO3- 29.1 (22-28); HGB O2 SAT 91.8 g/dF (94-100); Lactic Acid 2.8 (0.4-2.0); Methhemoglobin 1.4 % (1.4-1.5); paO2 pAO1 0.26
[2024-07-12 08:51] LABS: ABG SITE LEFT RADIAL; ALLEN TEST OK? YES
--- NOTE | 2024-07-12 09:02 | XRAY ---
Indication: Short of breath. Fever. Cough. Comparison: October 23, 2022 Portable apical lordotic chest limited as both costophrenic angles not completely included. Also minimal respiration artifact. Heart remains borderline enlarged. Grossly stable chronic lung markings without focal infiltrate, consolidation, or large effusion. Bony thorax intact. Impression: Nonacute limited chest.
[2024-07-12] MEDS ORDERED: Sterile H2O 10 ml IJ ONE ×2 (09:08→21:46)
[2024-07-12] MEDS ORDERED: solu-MEDROL ONE ×2 (09:08→21:46)
[2024-07-12] MEDS: solu-MEDROL 125 MG, Sterile H2O 10 ml 2 ML IV ONE (09:10)
[2024-07-12 09:27] LABS: Absolute Neutrophil Ct (ANC) 4.24 x10^3/uL (1.78-5.38); BASOPHIL % 0.9 % (0.2-1.2); Basophil (Absolute #) 0.05 x10^3/uL (0.01-0.08); Eosinophil % 0.6 % (0.8-7.0); Eosinophil (Absolute #) 0.03 x10^3/uL (0.04-0.54); Hematocrit 49.6 % (40.1-51.0); Hemoglobin 16.1 g/dL (13.7-17.5); IMMATURE GRAN # 0.01 x10^3u/L (0.001-0.031); IMMATURE GRAN % 0.2 % (0.001-0.429); Lymphocyte (Absolute #) 0.51 x10^3/uL (1.32-3.57); Lymphocytes % 9.5 % (21.8-53.1); Mean Cell Volume 93.2 fL (79.0-92.2); Mean Corpuscular Hemoglobin 30.3 pg (25.7-32.2); Mean Corpuscular Hgb Concent. 32.5 g/dL (32.3-36.5); Mean Platelet Volume 12.5 fL (9.4-12.4); Monocyte (Absolute #) 0.51 x10^3/uL (0.30-0.82); Monocytes % 9.5 % (5.3-12.2); Neutrophil % 79.3 % (34.0-67.9); Platelet Count 54 x10^3/uL (163-337); Red Blood Count 5.32 x10^6/uL (4.63-6.08); Red Cell Distribution Width 15.9 % (11.6-14.4); White Blood Count 5.4 x10^3/uL (4.23-9.07)
[2024-07-12 09:48] LABS: ALBUMIN 3.2 g/dL (3.5-5.0); ANION GAP 9.4 MEQ/L (5-15); BILIRUBIN,TOTAL 1.2 mg/dL (0.2-1.3); Calcium 8.5 mg/dL (8.4-10.2); Creatinine 1 0.65 mg/dL (0.66-1.25); EST GLOMERULAR FILTRATION RATE 111.3 ML/MIN; MAGNESIUM 1.4 mg/dL (1.6-2.3); Potassium 3.7 mmol/L (3.5-5.1); Total Protein 7.2 g/dL (6.3-8.2)
[2024-07-12 10:03] LABS: INFLUENZA A NEGATIVE (NEGATIVE); INFLUENZA B NEGATIVE (NEGATIVE); RESPIRATORY SYNCTIAL VIRUS NEGATIVE (NEGATIVE); SARS-CoV-2 Xpert Express NEGATIVE (NEGATIVE)
[2024-07-12] MEDS ORDERED: Zofran 4 MG/2 ML VIAL ONE (11:00)
[2024-07-12] MEDS ORDERED: HYDROCODONE-ACETAMIN 2.5-108/5 ML SOLUTION ONE (11:00)
[2024-07-12] MEDS: HYDROCODONE-ACETAMIN 2.5-108/5 ML SOLUTION PO STA (11:02)
[2024-07-12] MEDS: Zofran 4 MG/2 ML VIAL IV ONE (11:02)
[2024-07-12] MEDS ORDERED: Sodium Chloride 0.9% 250 ML 250 ML IV ONE (12:39)
[2024-07-12] MEDS: Sodium Chloride 0.9% 250 ML 250 ML IV SCH (12:42)
--- NOTE | 2024-07-12 13:10 | XRAY ---
Indication: Hypoxia. Cough. Obese. Multiple contiguous axial images obtained through the chest using 100 cc Isovue 370 contrast and PE protocol. Comparison: August 11, 2022. Adequate opacification pulmonary arteries to includes the lobar and segmental branches. No pulmonary embolus. Heart not enlarged. Aorta is normal in course and caliber. Stable tiny mediastinal and left hilar calcified nodes. No pathologic mediastinal/hilar lymphadenopathy. Grossly stable distal paraesophageal varices. Lungs again demonstrates minimal scattered bilateral peripheral fibrosis/scarring. New inferior lingula and lesser degree bibasilar subsegmental atelectasis. No suspicious pulmonary mass/nodule, infiltrate, or effusion. Bony thorax intact again with osteopenia, mild/moderate degenerative changes throughout spine, remote T7 superior endplate fracture, remote bilateral rib fractures, and small multilevel thoracic Schmorl nodes. Again incidental bilateral gynecomastia and 3 cm subcutaneous cyst posterior to T4-T5. Limited upper abdomen again demonstrates cirrhotic liver, splenorenal varices, and 17.7 cm splenomegaly. New tiny perihepatic ascites. Impression: 1. Continue negative pulmonary embolus. No acute cardiopulmonary abnormalities. 2. Again chronic findings including pulmonary fibrosis/scarring, cirrhotic liver with tiny perihepatic ascites, splenomegaly, splenorenal varices, distal paraesophageal varices, chronic bony findings, bilateral gynecomastia, and mid back subcutaneous cyst.
[2024-07-12] MEDS ORDERED: Lasix 40 MG/4 ML ONE (13:15)
[2024-07-12] MEDS: Lasix 40 MG/4 ML IV ONE (13:16)
[2024-07-12 14:09] LABS: Slide Review 1 YES
[2024-07-12] MEDS ORDERED: TYLENOL 325 MG PO PRN (14:46)
--- NOTE | 2024-07-12 15:07 | PCM.HP ---
History of Present Illness - Chief Complaint Chief Complaint: fever, cough, sob Date: 07/12/24 History of Present Illness: Mr. Alston is a 54 year old male with a pmhx of AFIB (Eliquis), COPD(2L at baseline), hypothyroidism, depression/anxiety, cirrhosis, hepatitis, CAD, CHF, and hypertension who presented to ED 07/12/24 with complaints of fever, wheezing, cough and shortness of breath. Patient reports that symptoms began last night. He states that he has been experiencing a productive cough with yellow sputum, sore throat, fever Tmax of 101.6, and progressive shortness of breath. At baseline he is on 2L of oxygen but was requiring 6L which prompted him to report to ED. He endorses chronic RUQ pain and occasional nausea. Denies urinary frequency, dysuria, retention, or hematuria. Does state that he experiences nocturnal urinary incontinence. Of note he did quit smoking one week ago. Upon arrival to ED patient was tachycardic with spo2 at 88% on 5L, patient placed on 6L with spo2 at 92%. CT chest w/contrast negative for PE and acute cardiopulmonary processes. Lab findings remarkable for lactic acidosis, and hypomagnesemia. BNP elevated at 1680. COVID/FLU/RSV negative. Patient given 250ml fluid bolus, solumedrol, DuoNeb treatment, and lasix in ED. Admit patient for COPD exacerbation. - Review of Systems Constitutional: Fever Eyes: No Symptoms Ears, Nose, & Throat: Throat Pain Respiratory: Cough, Short Of Breath, Wheezing Cardiac: No Symptoms Abdominal/Gastrointestinal: Abdominal Pain, Nausea, Diarrhea (lactulose) Genitourinary Symptoms: Incontinence (at night) Musculoskeletal: Back Pain (chronic) Skin: No Symptoms Neurological: No Symptoms Psychological: No Symptoms Endocrine: No Symptoms Hematologic/Lymphatic: No Symptoms Immunological/Allergic: No Symptoms Medications & Allergies Home Medications: Home Medication List Rifaximin [Xifaxan] 550 mg PO BID 30 Days #60 tablet 08/31/20 [Rx Confirmed 07/12/24] Apixaban [Eliquis] 5 mg PO BID #60 tablet 03/08/21 [Rx Confirmed 07/12/24] Gabapentin 600 mg PO TID 05/01/22 [History Confirmed 07/12/24] Metoprolol Tartrate 50 mg [Lopressor 50 MG] 100 mg PO BID 05/01/22 [History Confirmed 07/12/24] Levothyroxine Sodium 175 mcg PO DAILY 08/11/22 [History Confirmed 07/12/24] Ropinirole HCl 0.5 mg [Requip 0.5 MG] 0.5 mg PO QHS 08/11/22 [History Confirmed 07/12/24] Hydroxyzine HCl 25 mg [Atarax 25 mg] 25 mg PO TID PRN PRN #45 tablet 11/20/23 [Rx Confirmed 07/12/24] ALPRAZolam [Alprazolam] 0.5 mg PO TID PRN 07/12/24 [History Confirmed 07/12/24] Fluoxetine HCl 20 mg [Prozac 20 MG] 40 mg PO HS 07/12/24 [History Confirmed 07/12/24] Quetiapine Fumarate [Seroquel] 50 mg PO HS 07/12/24 [History Confirmed 07/12/24] Trazodone HCl 100 mg PO HS 07/12/24 [History Confirmed 07/12/24] Allergies/Adverse Reactions: Allergies Allergy/AdvReac Type Severity Reaction Status Date / Time nitrofurantoin Allergy Rash Verified 07/12/24 08:34 [From Macrobid] adhesive tape AdvReac Verified 07/12/24 08:34 - Past Medical History Past Medical History: Yes Neurological History: No Pertinent History ENT History: No Pertinent History Cardiac History: Arrhythmia, Congestive Heart Failure, Coronary Artery Disease, Hypertension Respiratory History: Asthma, Bronchitis, CHF, COPD, Pneumonia Endocrine Medical History: Hypothyroidism Musculoskelatal History: Osteoarthritis GI Medical History: Hepatitis, Cirrhosis History: No Pertinent History Pyscho-Social History: Anxiety, Bipolar, Depression Male Reproductive Disorders: No Pertinent History Comment: hepatitis A, B, C according to pt report. - Past Surgical History Past Surgical History: Yes Neuro Surgical History: No Pertinent History Cardiac History: Cardiac Catheterization Respiratory Surgery: No Pertinent History GI Surgical History: Cholecystectomy Genitourinary Surgical Hx: No Pertinent History Musculskeletal Surgical Hx: Orthopedic Surgery Male Surgical History: No Pertinent History Other Surgical History: right knee arthroscopy. heart cath appx 5 years ago. Significant Family History: heart disease (Dad), cancer (mom- breast uterine) - Social History Smoking Status: Former smoker (quit one week ago) How long have you smoked: 40 Exposure to second hand smoke: No Alcohol: None Drug Use: none - Social Determinants of Health Will the patient participate in the screening: Yes Do you worry about a steady place to live?: No Do you have any problems with any of the following?: No known problems In the past 12 months,have you had to go without utilities?: No Have you or anyone in your house had to go without enough: No Transportation Issues: No Has anyone in your support network made you feel unsafe?: No - Physical Exam Vital Signs: Vital Signs - 24 hr Temp Pulse Resp BP BP Pulse Ox 07/12/24 14:56 92 L 07/12/24 14:30 83 129/90 92 L 07/12/24 14:01 83 20 121/96 89 L 07/12/24 13:50 91 L 07/12/24 13:30 80 18 127/99 89 L 07/12/24 13:16 124/79 92 L 07/12/24 13:15 92 L 07/12/24 13:10 91 L 07/12/24 13:00 92 L 07/12/24 12:52 109 H 22 92 L 07/12/24 12:50 90 L 07/12/24 12:40 89 L 07/12/24 12:30 106 H 22 90 L 07/12/24 12:26 91 L 07/12/24 12:00 109 H 19 07/12/24 11:50 120 H 20 07/12/24 11:40 115 H 21 07/12/24 11:30 110 H 21 07/12/24 11:20 106 H 25 H 108/49 96 07/12/24 11:10 103 H 20 07/12/24 11:00 121 H 23 07/12/24 10:50 108 H 20 07/12/24 10:40 114 H 27 H 07/12/24 10:30 126 H 20 07/12/24 10:20 112 H 18 07/12/24 10:10 110 H 17 07/12/24 10:00 118 H 20 07/12/24 09:50 107 H 18 07/12/24 09:40 113 H 21 07/12/24 09:30 110 H 22 07/12/24 09:20 114 H 20 07/12/24 09:10 123 H 24 07/12/24 09:03 107 H 15 07/12/24 08:58 90 L 07/12/24 08:42 112 H 18 90 L 07/12/24 08:31 113 H 13 142/74 90 L 07/12/24 08:26 10 L 91 L 07/12/24 08:24 98.7 F 105 H 10 L 139/84 91 L General Appearance: no apparent distress Neurologic Exam: alert, oriented x 3, cooperative Eye Exam: PERRL/EOMI Ears, Nose, Throat Exam: normal ENT inspection Neck Exam: normal inspection Respiratory Exam: crackles/rales, rhonchi, wheezing Cardiovascular Exam: irregular Gastrointestinal/Abdomen Exam: soft, normal bowel sounds Rectal Exam: deferred Back Exam: normal inspection Skin Exam: normal color Results - Labs Lab/Micro Results: Lab Results-Last 24 Hours 07/12/24 07/12/24 07/12/24 Range/Units 08:48 09:10 09:10 WBC 5.4 (4.23-9.07) x10^3/uL RBC 5.32 (4.63-6.08) x10^6/uL Hgb 16.1 (13.7-17.5) g/dL Hct 49.6 (40.1-51.0) % MCV 93.2 H (79.0-92.2) fL MCH 30.3 (25.7-32.2) pg MCHC 32.5 (32.3-36.5) g/dL RDW 15.9 H (11.6-14.4) % Plt Count 54 L (163-337) x10^3/uL MPV 12.5 H (9.4-12.4) fL Gran % 79.3 H (34.0-67.9) % Immature Gran % (Auto) 0.2 (0.001-0.429) % Nucleat RBC Rel Count 0.0 (0.00-0.2) % Eos # (Auto) 0.03 L (0.04-0.54) x10^3/uL Immature Gran # (Auto) 0.01 (0.001-0.031) x10^3u/L Absolute Lymphs (auto) 0.51 L (1.32-3.57) x10^3/uL Absolute Monos (auto) 0.51 (0.30-0.82) x10^3/uL Absolute Nucleated RBC 0.00 (0.00-0.012) x10^3u/L Lymphocytes % 9.5 L (21.8-53.1) % Monocytes % 9.5 (5.3-12.2) % Eosinophils % 0.6 L (0.8-7.0) % Basophils % 0.9 (0.2-1.2) % Absolute Granulocytes 4.24 (1.78-5.38) x10^3/uL Basophils # 0.05 (0.01-0.08) x10^3/uL Puncture Site LEFT RADIAL pCO2 40 (35-45) mmHg pO2 68 L (75-100) mmHg Base Excess 5.0 H (-2.0-2.0) O2 Saturation 91.8 L (94-100) g/dF ABG pH 7.47 H (7.35-7.45) ABG HCO3 29.1 H* (22-28) ABG O2 Sat (Measured) 95.7 (95-100) % Gideon Test YES A-a Gradient 196 a/A Ratio 0.26 Hemoglobin 16.8 Carboxyhemoglobin 2.8 (0.0-6.9) % THgb Methemoglobin 1.4 (1.4-1.5) % Potassium 3.5 3.7 (3.5-5.1) Temperature 37.0 C POC O2 Flow Rate 44 % Sodium 139 (135-145) mmol/L Chloride 99 (98-107) mmol/L Carbon Dioxide 34 H (22-30) mmol/L Anion Gap 9.4 (5-15) MEQ/L BUN 4 L (9-20) mg/dL Creatinine 0.65 L (0.66-1.25) mg/dL Estimated GFR 111.3 ML/MIN Glucose 114 H (74-106) mg/dL Lactic Acid 2.8 H (0.4-2.0) Calcium 8.5 (8.4-10.2) mg/dL Magnesium 1.4 L (1.6-2.3) mg/dL Total Bilirubin 1.20 (0.2-1.3) mg/dL AST 42 (17-59) U/L ALT 28 (0-50) U/L Alkaline Phosphatase 88 (38-126) U/L Troponin I (0.000-0.033) ng/mL NT-Pro-B Natriuret Pep 1680 (<300) pg/mL Serum Total Protein 7.2 (6.3-8.2) g/dL Albumin 3.2 L (3.5-5.0) g/dL Influenza Type A Ag (NEGATIVE) Influenza Type B Ag (NEGATIVE) RSV (PCR) (NEGATIVE) SARS-CoV-2 (PCR) (NEGATIVE) Slides for Path Review YES 07/12/24 07/12/24 07/12/24 Range/Units 09:10 09:10 10:51 WBC (4.23-9.07) x10^3/uL RBC (4.63-6.08) x10^6/uL Hgb (13.7-17.5) g/dL Hct (40.1-51.0) % MCV (79.0-92.2) fL MCH (25.7-32.2) pg MCHC (32.3-36.5) g/dL RDW (11.6-14.4) % Plt Count (163-337) x10^3/uL MPV (9.4-12.4) fL Gran % (34.0-67.9) % Immature Gran % (Auto) (0.001-0.429) % Nucleat RBC Rel Count (0.00-0.2) % Eos # (Auto) (0.04-0.54) x10^3/uL Immature Gran # (Auto) (0.001-0.031) x10^3u/L Absolute Lymphs (auto) (1.32-3.57) x10^3/uL Absolute Monos (auto) (0.30-0.82) x10^3/uL Absolute Nucleated RBC (0.00-0.012) x10^3u/L Lymphocytes % (21.8-53.1) % Monocytes % (5.3-12.2) % Eosinophils % (0.8-7.0) % Basophils % (0.2-1.2) % Absolute Granulocytes (1.78-5.38) x10^3/uL Basophils # (0.01-0.08) x10^3/uL Puncture Site pCO2 (35-45) mmHg pO2 (75-100) mmHg Base Excess (-2.0-2.0) O2 Saturation (94-100) g/dF ABG pH (7.35-7.45) ABG HCO3 (22-28) ABG O2 Sat (Measured) (95-100) % Gideon Test A-a Gradient a/A Ratio Hemoglobin Carboxyhemoglobin (0.0-6.9) % THgb Methemoglobin (1.4-1.5) % Potassium (3.5-5.1) Temperature C POC O2 Flow Rate % Sodium (135-145) mmol/L Chloride (98-107) mmol/L Carbon Dioxide (22-30) mmol/L Anion Gap (5-15) MEQ/L BUN (9-20) mg/dL Creatinine (0.66-1.25) mg/dL Estimated GFR ML/MIN Glucose (74-106) mg/dL Lactic Acid 3.9 H (0.4-2.0) Calcium (8.4-10.2) mg/dL Magnesium (1.6-2.3) mg/dL Total Bilirubin (0.2-1.3) mg/dL AST (17-59) U/L ALT (0-50) U/L Alkaline Phosphatase (38-126) U/L Troponin I < 0.012 (0.000-0.033) ng/mL NT-Pro-B Natriuret Pep (<300) pg/mL Serum Total Protein (6.3-8.2) g/dL Albumin (3.5-5.0) g/dL Influenza Type A Ag NEGATIVE (NEGATIVE) Influenza Type B Ag NEGATIVE (NEGATIVE) RSV (PCR) NEGATIVE (NEGATIVE) SARS-CoV-2 (PCR) NEGATIVE (NEGATIVE) Slides for Path Review 07/12/24 Range/Units 12:43 WBC (4.23-9.07) x10^3/uL RBC (4.63-6.08) x10^6/uL Hgb (13.7-17.5) g/dL Hct (40.1-51.0) % MCV (79.0-92.2) fL MCH (25.7-32.2) pg MCHC (32.3-36.5) g/dL RDW (11.6-14.4) % Plt Count (163-337) x10^3/uL MPV (9.4-12.4) fL Gran % (34.0-67.9) % Immature Gran % (Auto) (0.001-0.429) % Nucleat RBC Rel Count (0.00-0.2) % Eos # (Auto) (0.04-0.54) x10^3/uL Immature Gran # (Auto) (0.001-0.031) x10^3u/L Absolute Lymphs (auto) (1.32-3.57) x10^3/uL Absolute Monos (auto) (0.30-0.82) x10^3/uL Absolute Nucleated RBC (0.00-0.012) x10^3u/L Lymphocytes % (21.8-53.1) % Monocytes % (5.3-12.2) % Eosinophils % (0.8-7.0) % Basophils % (0.2-1.2) % Absolute Granulocytes (1.78-5.38) x10^3/uL Basophils # (0.01-0.08) x10^3/uL Puncture Site pCO2 (35-45) mmHg pO2 (75-100) mmHg Base Excess (-2.0-2.0) O2 Saturation (94-100) g/dF ABG pH (7.35-7.45) ABG HCO3 (22-28) ABG O2 Sat (Measured) (95-100) % Gideon Test A-a Gradient a/A Ratio Hemoglobin Carboxyhemoglobin (0.0-6.9) % THgb Methemoglobin (1.4-1.5) % Potassium (3.5-5.1) Temperature C POC O2 Flow Rate % Sodium (135-145) mmol/L Chloride (98-107) mmol/L Carbon Dioxide (22-30) mmol/L Anion Gap (5-15) MEQ/L BUN (9-20) mg/dL Creatinine (0.66-1.25) mg/dL Estimated GFR ML/MIN Glucose (74-106) mg/dL Lactic Acid (0.4-2.0) Calcium (8.4-10.2) mg/dL Magnesium (1.6-2.3) mg/dL Total Bilirubin (0.2-1.3) mg/dL AST (17-59) U/L ALT (0-50) U/L Alkaline Phosphatase (38-126) U/L Troponin I < 0.012 (0.000-0.033) ng/mL NT-Pro-B Natriuret Pep (<300) pg/mL Serum Total Protein (6.3-8.2) g/dL Albumin (3.5-5.0) g/dL Influenza Type A Ag (NEGATIVE) Influenza Type B Ag (NEGATIVE) RSV (PCR) (NEGATIVE) SARS-CoV-2 (PCR) (NEGATIVE) Slides for Path Review - Radiology Impressions Radiology Exams & Impressions: Radiology Procedures Category Date Time Status CHEST 1 VIEW (PORTABLE) Stat Exams 07/12/24 08:38 Completed CHEST WITH CONTRAST [CT] Stat Exams 07/12/24 11:45 Completed - Other Procedures and Tests Respiratory Therapy 07/12/24 14:46 EKG REPEAT IN AM 07/12/24 14:51 Oxygen Oxymask LPM 6 lpm Respiratory Therapy Assessment DAILY Assessment/Plan (1) COPD exacerbation Current Visit: Yes Status: Acute Assessment & Plan: -Oxygen at baseline 2L - supplemental oxygen with goal spo2 88-92% - now on 6L - wean as appropriate -DuoNeb -CT chest w/contrast reviewed and negative for PE and acute cardiopulmonary processes -COVID/Flu/RSV negative -Solumedrol 40mg q8H -titrate -Azithromycin -ABG with significant hypoxia/lethargy +flu shot/pneumococcal on discharge if appropriate -consider pulm consult (patient follows with Dr. Gallegos) if no improvement Code(s): J44.1 - CHRONIC OBSTRUCTIVE PULMONARY DISEASE W (ACUTE) EXACERBATION (2) Acute respiratory failure with hypoxia Current Visit: Yes Status: Acute Assessment & Plan: -secondary to copd exac - see above Code(s): J96.01 - ACUTE RESPIRATORY FAILURE WITH HYPOXIA (3) Afib Current Visit: Yes Status: Acute Assessment & Plan: -continue home meds Eliquis/metoprolol -check TSH -EKG with AFIB HR 112 no acute ischemic changes Code(s): I48.91 - UNSPECIFIED ATRIAL FIBRILLATION (4) Hypothyroid Current Visit: Yes Status: Acute Assessment & Plan: --continue levothyroxine -check TSH Code(s): E03.9 - HYPOTHYROIDISM, UNSPECIFIED (5) Cirrhosis Current Visit: Yes Status: Acute Assessment & Plan: -Follows with GI at [facility]. Yu -continue Xifaxan/lactulose (6) Depression with anxiety Current Visit: Yes Status: Acute Assessment & Plan: -continue Prozac/alprazolam Code(s): F41.8 - OTHER SPECIFIED ANXIETY DISORDERS (7) Obesities, morbid Current Visit: Yes Status: Acute Assessment & Plan: -advised diet and exercise Code(s): E66.01 - MORBID (SEVERE) OBESITY DUE TO EXCESS CALORIES (8) CAD (coronary artery disease) Current Visit: Yes Status: Acute Assessment & Plan: -Follows with Mateo Fierro -continue home meds -Denies chest pain -trops reviewed and WNL x 2 -BNP reviewed and at 1680 -No acute cardiopulmonary on chest CT Code(s): I25.10 - ATHSCL HEART DISEASE OF [place] CORONARY ARTERY W/O ANG PCTRS (9) CHF (congestive heart failure) Current Visit: Yes Status: Acute Assessment & Plan: -No recent echo on file -does not appear to be in exacerbation -Lasix given in ED -BNP at 1680 -No effusions/infiltrates noted on CT chest -Daily weights/elevate HOB -strict I&O -continue home meds Code(s): I50.9 - HEART FAILURE, UNSPECIFIED (10) HTN (hypertension) Current Visit: Yes Status: Acute Assessment & Plan: -BP stable, continue home meds VTE: Eliquis PPI: Protonic Dispo: 1-2 days Code Status: Full Code(s): I10 - ESSENTIAL (PRIMARY) HYPERTENSION Telemedicine Encounter - Telemedicine Encounter Telemedicine Encounter: "The entirety of this encounter was performed via Telemedicine" This visit was performed using real-time audio and video connection between my location and thepatients locationwith the assistance of a surrogateat the patients location. Written or verbal consent was obtained from the patient/g uardian to perform this visit [facility] technology. Any patient questions regarding the telemedicine interaction were answered.
[2024-07-12] MEDS ORDERED: ATARAX 25 MG PO PRN (15:32)
[2024-07-12] MEDS ORDERED: MEDICATION INTERVENTION MC SCH (16:00)
[2024-07-12] MEDS: NEURONTIN PO SCH (16:36)
[2024-07-12] MEDS: Zithromax 500 MG/ 250 ML NaCl Premix 500 MG/250 ML IVPB IV SCH (16:36)
[2024-07-12] MEDS: SYNTHROID 75 MCG PO SCH (16:36)
[2024-07-12] MEDS: SYNTHROID 100 MCG PO SCH (16:37)
[2024-07-12] MEDS: Protonix 40MG Tablet PO SCH (16:37)
[2024-07-12] MEDS: MAGNESIUM SULF 2 G/50 ML BAG 2 GM/50 ML PIGGYBACK IV ONE (16:42)
[2024-07-12] MEDS: Zofran 4 MG/2 ML VIAL IV PRN (16:51)
[2024-07-12] MEDS: DUONEB 0.5-3 MG/3 ml Neb IH PRN (17:13)
[2024-07-12 17:26] LABS: Appearance Clear (Clear); Bacteria None Seen /HPF (None Seen); Bilirubin Negative (Negative); Blood Negative (Negative); Epithelial Cells None Seen /HPF (None Seen); Glucose, Urine Negative (Negative); Hyaline Casts NONE SEEN /LPF (0-2); Ketones Negative (Negative); Leukocyte Esterase Negative (Negative); Nitrite Negative (Negative); Ph 5.5 (4.6-8.0); Protein,Urine Dip Negative (Negative); RBC 0-2 /HPF (0-5); Specific Gravity >=1.030 (1.005-1.030); WBC 0-2 /HPF (0-5)
[2024-07-12 18:53] LABS: A-aADO2 416; ABG HEMOGLOBIN 17.3; ABG POTASSIUM 3.3 (3.5-5.1); ARTERIAL BLD GAS O2 SATURATION 92.6 % (95-100); ARTERIAL BLOOD GAS BASE EXCESS -0.1 (-2.0-2.0); ARTERIAL BLOOD GAS FIO2 75 %; ARTERIAL BLOOD GAS PCO2 46 mmHg (35-45); ARTERIAL BLOOD GAS PO2 61 mmHg (75-100); ARTERIAL BLOOD GAS pH 7.36 (7.35-7.45); HGB O2 SAT 89.9 g/dF (94-100); Methhemoglobin 0.9 % (1.4-1.5); paO2 pAO1 0.13
[2024-07-12 18:54] LABS: ABG SITE LEFT RADIAL; ALLEN TEST OK? YES
[2024-07-12] MEDS: DUONEB 0.5-3 MG/3 ml Neb IH SCH (19:15)
[2024-07-12] MEDS: Advair Hfa 230/21 Mcg COMMON CANISTER IH SCH (19:15)
[2024-07-12 20:09] LABS: Amphetamine,Urine NEGATIVE (NEGATIVE); Barbiturate,Urine NEGATIVE (NEGATIVE); Benzodiazepine,Urine NEGATIVE (NEGATIVE); Cocaine,Urine NEGATIVE (NEGATIVE); Methadone,Urine NEGATIVE (NEGATIVE); Opiate,Urine POSITIVE (NEGATIVE); PCP,Urine NEGATIVE (NEGATIVE); THC,Urine NEGATIVE (NEGATIVE)
[2024-07-12] MEDS: Seroquel 25 MG PO SCH (21:53)
[2024-07-12] MEDS: DESYREL 50 MG PO SCH (21:53)
[2024-07-12] MEDS: ELIQUIS 2.5 MG TABLET PO SCH (21:53)
[2024-07-12] MEDS: Requip 0.5 MG PO SCH (21:53)
[2024-07-12] MEDS: Lopressor 50 MG PO SCH (21:53)
[2024-07-12] MEDS: Prozac 20 MG PO SCH (21:53)
[2024-07-12] MEDS ORDERED: solu-MEDROL 40 MG, Sterile H2O 10 ml 1 ML IV SCH (22:00)
[2024-07-12] MEDS ORDERED: NON-FORMULARY ITEM (Rifaximin [Xifaxan] 550 MG Tablet) PO SCH (22:00)
[2024-07-12] MEDS: solu-MEDROL 60 MG, Sterile H2O 10 ml 1 ML IV SCH (22:13)
[2024-07-13 05:16] LABS: Absolute Neutrophil Ct (ANC) 6.23 x10^3/uL (1.78-5.38); BASOPHIL % 0.1 % (0.2-1.2); Basophil (Absolute #) 0.01 x10^3/uL (0.01-0.08); Eosinophil (Absolute #) 0 x10^3/uL (0.04-0.54); Hematocrit 49.2 % (40.1-51.0); Hemoglobin 16.1 g/dL (13.7-17.5); IMMATURE GRAN # 0.02 x10^3u/L (0.001-0.031); IMMATURE GRAN % 0.3 % (0.001-0.429); Lymphocyte (Absolute #) 0.55 x10^3/uL (1.32-3.57); Lymphocytes % 7.7 % (21.8-53.1); Mean Cell Volume 91.6 fL (79.0-92.2); Mean Corpuscular Hgb Concent. 32.7 g/dL (32.3-36.5); Mean Platelet Volume 11.4 fL (9.4-12.4); Monocyte (Absolute #) 0.32 x10^3/uL (0.30-0.82); Monocytes % 4.5 % (5.3-12.2); Neutrophil % 87.4 % (34.0-67.9); Platelet Count 51 x10^3/uL (163-337); Red Blood Count 5.37 x10^6/uL (4.63-6.08); Red Cell Distribution Width 16.4 % (11.6-14.4); White Blood Count 7.1 x10^3/uL (4.23-9.07)
--- NOTE | 2024-07-13 05:22 | PCM.NOTE ---
Date and Time: 07/13/24 0520 Subjective Assessment: Mr. Alston is a 54 year old male with a pmhx of AFIB (Eliquis), COPD(2L at baseline), hypothyroidism, depression/anxiety, cirrhosis, hepatitis, CAD, CHF, and hypertension who presented to ED 07/12/24 with complaints of fever, wheezing, cough and shortness of breath. Patient reports that symptoms began las t night. He states that he has been experiencing a productive cough with yellow sputum, sore throat, fever Tmax of 101.6, and progressive shortness of breath. At baseline he is on 2L of oxygen but was requiring 6L which prompted him to report to ED. He endorses chronic RUQ pain and occasional nausea. Denies urinary frequency, dysuria, retention, or hematuria. Does state that he experiences nocturnal urinary incontinence. Of note he did quit smoking one week ago. Upon arrival to ED patient was tachycardic with spo2 at 88% on 5L, patient placed on 6L with spo2 at 92%. CT chest w/contrast negative for PE and acute cardiopulmonary processes. Lab findings remarkable for lactic acidosis, and hypomagnesemia. BNP elevated at 1680. COVID/FLU/RSV negative. Patient given 250ml fluid bolus, solumedrol, DuoNeb treatment, and lasix in ED. Admit patient for COPD exacerbation. Patient now on BIPAP. Pulmonology consult unavailable at this time. 07/13/24: Met with patient bedside. Endorses improvement in dyspnea and cough. Patient of BIPAP now on 11L. Lung sounds coarse on auscultation with exp wheezing. Pulmonology unavailable for consult. Plan to continue abx and steroid. Most likely will be here for a few more days. Denies fever, cp, CASAS, dizziness, N/V/. - Review of Systems Constitutional: No Symptoms Eyes: No Symptoms Ears, Nose, & Throat: Nose Congestion Respiratory: Cough, Short Of Breath, Wheezing Cardiac: No Symptoms Abdominal/Gastrointestinal: Abdominal Pain, Diarrhea Genitourinary Symptoms: No Symptoms Musculoskeletal: No Symptoms Neurological: No Symptoms Psychological: No Symptoms Endocrine: No Symptoms Hematologic/Lymphatic: No Symptoms Immunological/Allergic: No Symptoms Objective Exam General Appearance: no apparent distress Neurologic Exam: alert, oriented x 3, cooperative Skin Exam: normal color, other (BLE with vascular insufficiency) Eye Exam: PERRL Ears, Nose, Throat Exam: normal ENT inspection Neck Exam: normal inspection Respiratory Exam: diminished breath sounds, crackles/rales, wheezing Cardiovascular Exam: irregular Gastrointestinal/Abdomen Exam: soft, normal bowel sounds Extremity Exam: normal inspection Back Exam: normal inspection Male Genitalia Exam: deferred Rectal Exam: deferred Objective Data Vital Signs: Vital Signs - 24 hr Temp Pulse Resp BP BP Pulse Ox 07/13/24 04:00 97.8 F 97 H 26 H 129/83 95 07/13/24 00:56 89 22 98 07/13/24 00:00 98.5 F 98 H 24 102/69 98 07/12/24 20:00 98.6 F 96 H 24 117/69 97 07/12/24 19:15 117 H 23 97 07/12/24 17:13 119 H 19 88 L 07/12/24 15:00 96.8 F 120 H 15 138/59 93 L 07/12/24 14:56 92 L 07/12/24 14:51 98.7 F 112 H 20 125/82 88 L 07/12/24 14:30 83 129/90 92 L 07/12/24 14:01 83 20 121/96 89 L 07/12/24 13:50 91 L 07/12/24 13:30 80 18 127/99 89 L 07/12/24 13:16 124/79 92 L 07/12/24 13:15 92 L 07/12/24 13:10 91 L 07/12/24 13:00 92 L 07/12/24 12:52 109 H 22 92 L 07/12/24 12:50 90 L 07/12/24 12:40 89 L 07/12/24 12:30 106 H 22 90 L 07/12/24 12:26 91 L 07/12/24 12:00 109 H 19 07/12/24 11:50 120 H 20 07/12/24 11:40 115 H 21 07/12/24 11:30 110 H 21 07/12/24 11:20 106 H 25 H 108/49 96 07/12/24 11:10 103 H 20 07/12/24 11:00 121 H 23 07/12/24 10:50 108 H 20 07/12/24 10:40 114 H 27 H 07/12/24 10:30 126 H 20 11/13/24 10:20 112 H 18 07/12/24 10:10 110 H 17 07/12/24 10:00 118 H 20 07/12/24 09:50 107 H 18 07/12/24 09:40 113 H 21 07/12/24 09:30 110 H 22 07/12/24 09:20 114 H 20 07/12/24 09:10 123 H 24 07/12/24 09:03 107 H 15 07/12/24 08:58 90 L 07/12/24 08:42 112 H 18 90 L 07/12/24 08:31 113 H 13 142/74 90 L 07/12/24 08:26 10 L 91 L 07/12/24 08:24 98.7 F 105 H 10 L 139/84 91 L Pain Assessment - Last Documented Pain Intensity 4 Intake and Output: Intake & Output 07/10/24 07/11/24 07/12/24 07/13/24 11:59 11:59 11:59 11:59 Intake Total 0 Output Total 2575 Balance -2575 Weight 192.4 kg 192.4 kg Lab Results: Lab Results-Last 24 Hours 07/12/24 07/12/24 07/12/24 Range/Units 08:48 09:10 09:10 WBC 5.4 (4.23-9.07) x10^3/uL RBC 5.32 (4.63-6.08) x10^6/uL Hgb 16.1 (13.7-17.5) g/dL Hct 49.6 (40.1-51.0) % MCV 93.2 H (79.0-92.2) fL MCH 30.3 (25.7-32.2) pg MCHC 32.5 (32.3-36.5) g/dL RDW 15.9 H (11.6-14.4) % Plt Count 54 L (163-337) x10^3/uL MPV 12.5 H (9.4-12.4) fL Gran % 79.3 H (34.0-67.9) % Immature Gran % (Auto) 0.2 (0.001-0.429) % Nucleat RBC Rel Count 0.0 (0.00-0.2) % Eos # (Auto) 0.03 L (0.04-0.54) x10^3/uL Immature Gran # (Auto) 0.01 (0.001-0.031) x10^3u/L Absolute Lymphs (auto) 0.51 L (1.32-3.57) x10^3/uL Absolute Monos (auto) 0.51 (0.30-0.82) x10^3/uL Absolute Nucleated RBC 0.00 (0.00-0.012) x10^3u/L Lymphocytes % 9.5 L (21.8-53.1) % Monocytes % 9.5 (5.3-12.2) % Eosinophils % 0.6 L (0.8-7.0) % Basophils % 0.9 (0.2-1.2) % Absolute Granulocytes 4.24 (1.78-5.38) x10^3/uL Basophils # 0.05 (0.01-0.08) x10^3/uL Puncture Site LEFT RADIAL pCO2 40 (35-45) mmHg pO2 68 L (75-100) mmHg Base Excess 5.0 H (-2.0-2.0) O2 Saturation 91.8 L (94-100) g/dF ABG pH 7.47 H (7.35-7.45) ABG HCO3 29.1 H* (22-28) ABG O2 Sat (Measured) 95.7 (95-100) % Gideon Test YES A-a Gradient 196 a/A Ratio 0.26 Hemoglobin 16.8 Carboxyhemoglobin 2.8 (0.0-6.9) % THgb Methemoglobin 1.4 (1.4-1.5) % Potassium 3.5 3.7 (3.5-5.1) Temperature 37.0 C POC O2 Flow Rate 44 % Sodium 139 (135-145) mmol/L Chloride 99 (98-107) mmol/L Carbon Dioxide 34 H (22-30) mmol/L Anion Gap 9.4 (5-15) MEQ/L BUN 4 L (9-20) mg/dL Creatinine 0.65 L (0.66-1.25) mg/dL Estimated GFR 111.3 ML/MIN Glucose 114 H (74-106) mg/dL Lactic Acid 2.8 H (0.4-2.0) Calcium 8.5 (8.4-10.2) mg/dL Magnesium 1.4 L (1.6-2.3) mg/dL Total Bilirubin 1.20 (0.2-1.3) mg/dL AST 42 (17-59) U/L ALT 28 (0-50) U/L Alkaline Phosphatase 88 (38-126) U/L Troponin I (0.000-0.033) ng/mL NT-Pro-B Natriuret Pep 1680 (<300) pg/mL Serum Total Protein 7.2 (6.3-8.2) g/dL Albumin 3.2 L (3.5-5.0) g/dL Procalcitonin (0.030-0.080) ng/mL TSH 3rd Generation (0.470-4.680) mIU/L Urine Color (Yellow) Urine Appearance (Clear) Urine pH (4.6-8.0) Ur Specific [place] (1.005-1.030) Urine Protein (Negative) Urine Glucose (UA) (Negative) mg/dL Urine Ketones (Negative) Urine Blood (Negative) Urine Nitrite (Negative) Urine Bilirubin (Negative) Urine Urobilinogen (0.2) mg/dL Ur Leukocyte Esterase (Negative) U Hyaline Cast (Auto) (0-2) /LPF Urine Microscopic RBC (0-5) /HPF Urine Microscopic WBC (0-5) /HPF Ur Epithelial Cells (None Seen) /HPF Urine Bacteria (None Seen) /HPF Urine Culture Reflexed (NO) Urine Opiates Level (NEGATIVE) Ur Methadone (NEGATIVE) Urine Barbiturates (NEGATIVE) Ur Phencyclidine (PCP) (NEGATIVE) Urine Amphetamine (NEGATIVE) U Benzodiazepine Level (NEGATIVE) Urine Cocaine (NEGATIVE) Urine Marijuana (THC) (NEGATIVE) Influenza Type A Ag (NEGATIVE) Influenza Type B Ag (NEGATIVE) RSV (PCR) (NEGATIVE) SARS-CoV-2 (PCR) (NEGATIVE) Slides for Path Review YES 07/12/24 07/12/24 07/12/24 Range/Units 09:10 09:10 10:51 WBC (4.23-9.07) x10^3/uL RBC (4.63-6.08) x10^6/uL Hgb (13.7-17.5) g/dL Hct (40.1-51.0) % MCV (79.0-92.2) fL MCH (25.7-32.2) pg MCHC (32.3-36.5) g/dL RDW (11.6-14.4) % Plt Count (163-337) x10^3/uL MPV (9.4-12.4) fL Gran % (34.0-67.9) % Immature Gran % (Auto) (0.001-0.429) % Nucleat RBC Rel Count (0.00-0.2) % Eos # (Auto) (0.04-0.54) x10^3/uL Immature Gran # (Auto) (0.001-0.031) x10^3u/L Absolute Lymphs (auto) (1.32-3.57) x10^3/uL Absolute Monos (auto) (0.30-0.82) x10^3/uL Absolute Nucleated RBC (0.00-0.012) x10^3u/L Lymphocytes % (21.8-53.1) % Monocytes % (5.3-12.2) % Eosinophils % (0.8-7.0) % Basophils % (0.2-1.2) % Absolute Granulocytes (1.78-5.38) x10^3/uL Basophils # (0.01-0.08) x10^3/uL Puncture Site pCO2 (35-45) mmHg pO2 (75-100) mmHg Base Excess (-2.0-2.0) O2 Saturation (94-100) g/dF ABG pH (7.35-7.45) ABG HCO3 (22-28) ABG O2 Sat (Measured) (95-100) % Gideon Test A-a Gradient a/A Ratio Hemoglobin Carboxyhemoglobin (0.0-6.9) % THgb Methemoglobin (1.4-1.5) % Potassium (3.5-5.1) Temperature C POC O2 Flow Rate % Sodium (135-145) mmol/L Chloride (98-107) mmol/L Carbon Dioxide (22-30) mmol/L Anion Gap (5-15) MEQ/L BUN (9-20) mg/dL Creatinine (0.66-1.25) mg/dL Estimated GFR ML/MIN Glucose (74-106) mg/dL Lactic Acid 3.9 H (0.4-2.0) Calcium (8.4-10.2) mg/dL Magnesium (1.6-2.3) mg/dL Total Bilirubin (0.2-1.3) mg/dL AST (17-59) U/L ALT (0-50) U/L Alkaline Phosphatase (38-126) U/L Troponin I < 0.012 (0.000-0.033) ng/mL NT-Pro-B Natriuret Pep (<300) pg/mL Serum Total Protein (6.3-8.2) g/dL Albumin (3.5-5.0) g/dL Procalcitonin (0.030-0.080) ng/mL TSH 3rd Generation (0.470-4.680) mIU/L Urine Color (Yellow) Urine Appearance (Clear) Urine pH (4.6-8.0) Ur Specific [place] (1.005-1.030) Urine Protein (Negative) Urine Glucose (UA) (Negative) mg/dL Urine Ketones (Negative) Urine Blood (Negative) Urine Nitrite (Negative) Urine Bilirubin (Negative) Urine Urobilinogen (0.2) mg/dL Ur Leukocyte Esterase (Negative) U Hyaline Cast (Auto) (0-2) /LPF Urine Microscopic RBC (0-5) /HPF Urine Microscopic WBC (0-5) /HPF Ur Epithelial Cells (None Seen) /HPF Urine Bacteria (None Seen) /HPF Urine Culture Reflexed (NO) Urine Opiates Level (NEGATIVE) Ur Methadone (NEGATIVE) Urine Barbiturates (NEGATIVE) Ur Phencyclidine (PCP) (NEGATIVE) Urine Amphetamine (NEGATIVE) U Benzodiazepine Level (NEGATIVE) Urine Cocaine (NEGATIVE) Urine Marijuana (THC) (NEGATIVE) Influenza Type A Ag NEGATIVE (NEGATIVE) Influenza Type B Ag NEGATIVE (NEGATIVE) RSV (PCR) NEGATIVE (NEGATIVE) SARS-CoV-2 (PCR) NEGATIVE (NEGATIVE) Slides for Path Review 07/12/24 07/12/24 07/12/24 Range/Units 12:43 17:16 17:16 WBC (4.23-9.07) x10^3/uL RBC (4.63-6.08) x10^6/uL Hgb (13.7-17.5) g/dL Hct (40.1-51.0) % MCV (79.0-92.2) fL MCH (25.7-32.2) pg MCHC (32.3-36.5) g/dL RDW (11.6-14.4) % Plt Count (163-337) x10^3/uL MPV (9.4-12.4) fL Gran % (34.0-67.9) % Immature Gran % (Auto) (0.001-0.429) % Nucleat RBC Rel Count (0.00-0.2) % Eos # (Auto) (0.04-0.54) x10^3/uL Immature Gran # (Auto) (0.001-0.031) x10^3u/L Absolute Lymphs (auto) (1.32-3.57) x10^3/uL Absolute Monos (auto) (0.30-0.82) x10^3/uL Absolute Nucleated RBC (0.00-0.012) x10^3u/L Lymphocytes % (21.8-53.1) % Monocytes % (5.3-12.2) % Eosinophils % (0.8-7.0) % Basophils % (0.2-1.2) % Absolute Granulocytes (1.78-5.38) x10^3/uL Basophils # (0.01-0.08) x10^3/uL Puncture Site pCO2 (35-45) mmHg pO2 (75-100) mmHg Base Excess (-2.0-2.0) O2 Saturation (94-100) g/dF ABG pH (7.35-7.45) ABG HCO3 (22-28) ABG O2 Sat (Measured) (95-100) % Gideon Test A-a Gradient a/A Ratio Hemoglobin Carboxyhemoglobin (0.0-6.9) % THgb Methemoglobin (1.4-1.5) % Potassium (3.5-5.1) Temperature C POC O2 Flow Rate % Sodium (135-145) mmol/L Chloride (98-107) mmol/L Carbon Dioxide (22-30) mmol/L Anion Gap (5-15) MEQ/L BUN (9-20) mg/dL Creatinine (0.66-1.25) mg/dL Estimated GFR ML/MIN Glucose (74-106) mg/dL Lactic Acid (0.4-2.0) Calcium (8.4-10.2) mg/dL Magnesium (1.6-2.3) mg/dL Total Bilirubin (0.2-1.3) mg/dL AST (17-59) U/L ALT (0-50) U/L Alkaline Phosphatase (38-126) U/L Troponin I < 0.012 (0.000-0.033) ng/mL NT-Pro-B Natriuret Pep (<300) pg/mL Serum Total Protein (6.3-8.2) g/dL Albumin (3.5-5.0) g/dL Procalcitonin (0.030-0.080) ng/mL TSH 3rd Generation (0.470-4.680) mIU/L Urine Color Yellow (Yellow) Urine Appearance Clear (Clear) Urine pH 5.5 (4.6-8.0) Ur Specific [place] >=1.030 A (1.005-1.030) Urine Protein Negative (Negative) Urine Glucose (UA) Negative (Negative) mg/dL Urine Ketones Negative (Negative) Urine Blood Negative (Negative) Urine Nitrite Negative (Negative) Urine Bilirubin Negative (Negative) Urine Urobilinogen 1.0 A (0.2) mg/dL Ur Leukocyte Esterase Negative (Negative) U Hyaline Cast (Auto) NONE SEEN (0-2) /LPF Urine Microscopic RBC 0-2 (0-5) /HPF Urine Microscopic WBC 0-2 (0-5) /HPF Ur Epithelial Cells None Seen (None Seen) /HPF Urine Bacteria None Seen (None Seen) /HPF Urine Culture Reflexed NO (NO) Urine Opiates Level POSITIVE A (NEGATIVE) Ur Methadone NEGATIVE (NEGATIVE) Urine Barbiturates NEGATIVE (NEGATIVE) Ur Phencyclidine (PCP) NEGATIVE (NEGATIVE) Urine Amphetamine NEGATIVE (NEGATIVE) U Benzodiazepine Level NEGATIVE (NEGATIVE) Urine Cocaine NEGATIVE (NEGATIVE) Urine Marijuana (THC) NEGATIVE (NEGATIVE) Influenza Type A Ag (NEGATIVE) Influenza Type B Ag (NEGATIVE) RSV (PCR) (NEGATIVE) SARS-CoV-2 (PCR) (NEGATIVE) Slides for Path Review 07/12/24 07/12/24 07/12/24 Range/Units 17:38 17:41 17:41 WBC (4.23-9.07) x10^3/uL RBC (4.63-6.08) x10^6/uL Hgb (13.7-17.5) g/dL Hct (40.1-51.0) % MCV (79.0-92.2) fL MCH (25.7-32.2) pg MCHC (32.3-36.5) g/dL RDW (11.6-14.4) % Plt Count (163-337) x10^3/uL MPV (9.4-12.4) fL Gran % (34.0-67.9) % Immature Gran % (Auto) (0.001-0.429) % Nucleat RBC Rel Count (0.00-0.2) % Eos # (Auto) (0.04-0.54) x10^3/uL Immature Gran # (Auto) (0.001-0.031) x10^3u/L Absolute Lymphs (auto) (1.32-3.57) x10^3/uL Absolute Monos (auto) (0.30-0.82) x10^3/uL Absolute Nucleated RBC (0.00-0.012) x10^3u/L Lymphocytes % (21.8-53.1) % Monocytes % (5.3-12.2) % Eosinophils % (0.8-7.0) % Basophils % (0.2-1.2) % Absolute Granulocytes (1.78-5.38) x10^3/uL Basophils # (0.01-0.08) x10^3/uL Puncture Site pCO2 (35-45) mmHg pO2 (75-100) mmHg Base Excess (-2.0-2.0) O2 Saturation (94-100) g/dF ABG pH (7.35-7.45) ABG HCO3 (22-28) ABG O2 Sat (Measured) (95-100) % Gideon Test A-a Gradient a/A Ratio Hemoglobin Carboxyhemoglobin (0.0-6.9) % THgb Methemoglobin (1.4-1.5) % Potassium (3.5-5.1) Temperature C POC O2 Flow Rate % Sodium (135-145) mmol/L Chloride (98-107) mmol/L Carbon Dioxide (22-30) mmol/L Anion Gap (5-15) MEQ/L BUN (9-20) mg/dL Creatinine (0.66-1.25) mg/dL Estimated GFR ML/MIN Glucose (74-106) mg/dL Lactic Acid (0.4-2.0) Calcium (8.4-10.2) mg/dL Magnesium (1.6-2.3) mg/dL Total Bilirubin (0.2-1.3) mg/dL AST (17-59) U/L ALT (0-50) U/L Alkaline Phosphatase (38-126) U/L Troponin I < 0.012 (0.000-0.033) ng/mL NT-Pro-B Natriuret Pep (<300) pg/mL Serum Total Protein (6.3-8.2) g/dL Albumin (3.5-5.0) g/dL Procalcitonin 0.068 (0.030-0.080) ng/mL TSH 3rd Generation 0.935 (0.470-4.680) mIU/L Urine Color (Yellow) Urine Appearance (Clear) Urine pH (4.6-8.0) Ur Specific [place] (1.005-1.030) Urine Protein (Negative) Urine Glucose (UA) (Negative) mg/dL Urine Ketones (Negative) Urine Blood (Negative) Urine Nitrite (Negative) Urine Bilirubin (Negative) Urine Urobilinogen (0.2) mg/dL Ur Leukocyte Esterase (Negative) U Hyaline Cast (Auto) (0-2) /LPF Urine Microscopic RBC (0-5) /HPF Urine Microscopic WBC (0-5) /HPF Ur Epithelial Cells (None Seen) /HPF Urine Bacteria (None Seen) /HPF Urine Culture Reflexed (NO) Urine Opiates Level (NEGATIVE) Ur Methadone (NEGATIVE) Urine Barbiturates (NEGATIVE) Ur Phencyclidine (PCP) (NEGATIVE) Urine Amphetamine (NEGATIVE) U Benzodiazepine Level (NEGATIVE) Urine Cocaine (NEGATIVE) Urine Marijuana (THC) (NEGATIVE) Influenza Type A Ag (NEGATIVE) Influenza Type B Ag (NEGATIVE) RSV (PCR) (NEGATIVE) SARS-CoV-2 (PCR) (NEGATIVE) Slides for Path Review 07/12/24 07/12/24 07/13/24 Range/Units 18:45 18:45 04:55 WBC (4.23-9.07) x10^3/uL RBC (4.63-6.08) x10^6/uL Hgb (13.7-17.5) g/dL Hct (40.1-51.0) % MCV (79.0-92.2) fL MCH (25.7-32.2) pg MCHC (32.3-36.5) g/dL RDW (11.6-14.4) % Plt Count (163-337) x10^3/uL MPV (9.4-12.4) fL Gran % (34.0-67.9) % Immature Gran % (Auto) (0.001-0.429) % Nucleat RBC Rel Count (0.00-0.2) % Eos # (Auto) (0.04-0.54) x10^3/uL Immature Gran # (Auto) (0.001-0.031) x10^3u/L Absolute Lymphs (auto) (1.32-3.57) x10^3/uL Absolute Monos (auto) (0.30-0.82) x10^3/uL Absolute Nucleated RBC (0.00-0.012) x10^3u/L Lymphocytes % (21.8-53.1) % Monocytes % (5.3-12.2) % Eosinophils % (0.8-7.0) % Basophils % (0.2-1.2) % Absolute Granulocytes (1.78-5.38) x10^3/uL Basophils # (0.01-0.08) x10^3/uL Puncture Site LEFT RADIAL pCO2 46 H (35-45) mmHg pO2 61 L (75-100) mmHg Base Excess -0.1 (-2.0-2.0) O2 Saturation 89.9 L (94-100) g/dF ABG pH 7.36 (7.35-7.45) ABG HCO3 26.0 (22-28) ABG O2 Sat (Measured) 92.6 L (95-100) % Gideon Test YES A-a Gradient 416 a/A Ratio 0.13 Hemoglobin 17.3 Carboxyhemoglobin 2.0 (0.0-6.9) % THgb Methemoglobin 0.9 L (1.4-1.5) % Potassium 3.3 L (3.5-5.1) Temperature 37.0 C POC O2 Flow Rate 75 % Sodium (135-145) mmol/L Chloride (98-107) mmol/L Carbon Dioxide (22-30) mmol/L Anion Gap (5-15) MEQ/L BUN (9-20) mg/dL Creatinine (0.66-1.25) mg/dL Estimated GFR ML/MIN Glucose (74-106) mg/dL Lactic Acid 7.1 H 3.3 H (0.4-2.0) Calcium (8.4-10.2) mg/dL Magnesium (1.6-2.3) mg/dL Total Bilirubin (0.2-1.3) mg/dL AST (17-59) U/L ALT (0-50) U/L Alkaline Phosphatase (38-126) U/L Troponin I (0.000-0.033) ng/mL NT-Pro-B Natriuret Pep (<300) pg/mL Serum Total Protein (6.3-8.2) g/dL Albumin (3.5-5.0) g/dL Procalcitonin (0.030-0.080) ng/mL TSH 3rd Generation (0.470-4.680) mIU/L Urine Color (Yellow) Urine Appearance (Clear) Urine pH (4.6-8.0) Ur Specific [place] (1.005-1.030) Urine Protein (Negative) Urine Glucose (UA) (Negative) mg/dL Urine Ketones (Negative) Urine Blood (Negative) Urine Nitrite (Negative) Urine Bilirubin (Negative) Urine Urobilinogen (0.2) mg/dL Ur Leukocyte Esterase (Negative) U Hyaline Cast (Auto) (0-2) /LPF Urine Microscopic RBC (0-5) /HPF Urine Microscopic WBC (0-5) /HPF Ur Epithelial Cells (None Seen) /HPF Urine Bacteria (None Seen) /HPF Urine Culture Reflexed (NO) Urine Opiates Level (NEGATIVE) Ur Methadone (NEGATIVE) Urine Barbiturates (NEGATIVE) Ur Phencyclidine (PCP) (NEGATIVE) Urine Amphetamine (NEGATIVE) U Benzodiazepine Level (NEGATIVE) Urine Cocaine (NEGATIVE) Urine Marijuana (THC) (NEGATIVE) Influenza Type A Ag (NEGATIVE) Influenza Type B Ag (NEGATIVE) RSV (PCR) (NEGATIVE) SARS-CoV-2 (PCR) (NEGATIVE) Slides for Path Review 07/13/24 Range/Units 05:04 WBC 7.1 (4.23-9.07) x10^3/uL RBC 5.37 (4.63-6.08) x10^6/uL Hgb 16.1 (13.7-17.5) g/dL Hct 49.2 (40.1-51.0) % MCV 91.6 (79.0-92.2) fL MCH 30.0 (25.7-32.2) pg MCHC 32.7 (32.3-36.5) g/dL RDW 16.4 H (11.6-14.4) % Plt Count 51 L (163-337) x10^3/uL MPV 11.4 (9.4-12.4) fL Gran % 87.4 H (34.0-67.9) % Immature Gran % (Auto) 0.3 (0.001-0.429) % Nucleat RBC Rel Count 0.0 (0.00-0.2) % Eos # (Auto) 0 L (0.04-0.54) x10^3/uL Immature Gran # (Auto) 0.02 (0.001-0.031) x10^3u/L Absolute Lymphs (auto) 0.55 L (1.32-3.57) x10^3/uL Absolute Monos (auto) 0.32 (0.30-0.82) x10^3/uL Absolute Nucleated RBC 0.00 (0.00-0.012) x10^3u/L Lymphocytes % 7.7 L (21.8-53.1) % Monocytes % 4.5 L (5.3-12.2) % Eosinophils % 0.0 L (0.8-7.0) % Basophils % 0.1 L (0.2-1.2) % Absolute Granulocytes 6.23 H (1.78-5.38) x10^3/uL Basophils # 0.01 (0.01-0.08) x10^3/uL Puncture Site pCO2 (35-45) mmHg pO2 (75-100) mmHg Base Excess (-2.0-2.0) O2 Saturation (94-100) g/dF ABG pH (7.35-7.45) ABG HCO3 (22-28) ABG O2 Sat (Measured) (95-100) % Gideon Test A-a Gradient a/A Ratio Hemoglobin Carboxyhemoglobin (0.0-6.9) % THgb Methemoglobin (1.4-1.5) % Potassium (3.5-5.1) Temperature C POC O2 Flow Rate % Sodium (135-145) mmol/L Chloride (98-107) mmol/L Carbon Dioxide (22-30) mmol/L Anion Gap (5-15) MEQ/L BUN (9-20) mg/dL Creatinine (0.66-1.25) mg/dL Estimated GFR ML/MIN Glucose (74-106) mg/dL Lactic Acid (0.4-2.0) Calcium (8.4-10.2) mg/dL Magnesium (1.6-2.3) mg/dL Total Bilirubin (0.2-1.3) mg/dL AST (17-59) U/L ALT (0-50) U/L Alkaline Phosphatase (38-126) U/L Troponin I (0.000-0.033) ng/mL NT-Pro-B Natriuret Pep (<300) pg/mL Serum Total Protein (6.3-8.2) g/dL Albumin (3.5-5.0) g/dL Procalcitonin (0.030-0.080) ng/mL TSH 3rd Generation (0.470-4.680) mIU/L Urine Color (Yellow) Urine Appearance (Clear) Urine pH (4.6-8.0) Ur Specific [place] (1.005-1.030) Urine Protein (Negative) Urine Glucose (UA) (Negative) mg/dL Urine Ketones (Negative) Urine Blood (Negative) Urine Nitrite (Negative) Urine Bilirubin (Negative) Urine Urobilinogen (0.2) mg/dL Ur Leukocyte Esterase (Negative) U Hyaline Cast (Auto) (0-2) /LPF Urine Microscopic RBC (0-5) /HPF Urine Microscopic WBC (0-5) /HPF Ur Epithelial Cells (None Seen) /HPF Urine Bacteria (None Seen) /HPF Urine Culture Reflexed (NO) Urine Opiates Level (NEGATIVE) Ur Methadone (NEGATIVE) Urine Barbiturates (NEGATIVE) Ur Phencyclidine (PCP) (NEGATIVE) Urine Amphetamine (NEGATIVE) U Benzodiazepine Level (NEGATIVE) Urine Cocaine (NEGATIVE) Urine Marijuana (THC) (NEGATIVE) Influenza Type A Ag (NEGATIVE) Influenza Type B Ag (NEGATIVE) RSV (PCR) (NEGATIVE) SARS-CoV-2 (PCR) (NEGATIVE) Slides for Path Review Radiology Exams: Radiology Procedures Category Date Time Status CHEST 1 VIEW (PORTABLE) Stat Exams 07/12/24 08:38 Completed CHEST WITH CONTRAST [CT] Stat Exams 07/12/24 11:45 Completed Multi-Disciplinary Progress Notes: Multi-Disciplinary Progress Notes 07/12/24 20:19 Respiratory Note by Loli Trevino DR. REQUESTED PULMONARY CONSULT. RT CONTACTED DR GALLEGOS WHO STATED HE WILL BE OUT OF TOWN AND UNABLE TO CONSULT UNTIL WEDNESDAY. Initialized on 07/12/24 20:19 - END OF NOTE 07/12/24 17:38 Respiratory Note by Medina Sheikh pt placed on 12L oxymizer due to spo2 88% on 11Loxymask Initialized on 07/12/24 17:38 - END OF NOTE 07/12/24 09:01 Respiratory Note by Medina Sheikh pt spo2 88% on 5L. pt placed on oxymask at 6L and spo2 up to 92%. Initialized on 07/12/24 09:01 - END OF NOTE Assessment/Plan (1) COPD exacerbation Current Visit: Yes Status: Acute Assessment & Plan: -Oxygen at baseline 2L - supplemental oxygen with goal spo2 88-92% - now on 6L - wean as appropriate -DuoNeb -CT chest w/contrast reviewed and negative for PE and acute cardiopulmonary processes -COVID/Flu/RSV negative -Solumedrol 40mg q8H -titrate -Azithromycin -ABG with significant hypoxia/lethargy +flu shot/pneumococcal on discharge if appropriate -consider pulm consult (patient follows with Dr. Gallegos) if no improvement 07/13: -Pulm unavailable for consult -Solumedrol 60mg q8H -continue azithromycin -LA reviewed, improving 3.3<7.1 Code(s): J44.1 - CHRONIC OBSTRUCTIVE PULMONARY DISEASE W (ACUTE) EXACERBATION (2) Acute respiratory failure with hypoxia Current Visit: Yes Status: Acute Assessment & Plan: -secondary to copd exac - see above Code(s): J96.01 - ACUTE RESPIRATORY FAILURE WITH HYPOXIA (3) Afib Current Visit: Yes Status: Acute Assessment & Plan: -continue home meds Eliquis/metoprolol -check TSH -EKG with AFIB HR 112 no acute ischemic changes 07/13: -HR controlled -Tsh reviewed, WNL Code(s): I48.91 - UNSPECIFIED ATRIAL FIBRILLATION (4) Hypothyroid Current Visit: Yes Status: Acute Assessment & Plan: --continue levothyroxine -check TSH 07/13: -TSH reviewed and WNL Code(s): E03.9 - HYPOTHYROIDISM, UNSPECIFIED (5) Cirrhosis Current Visit: Yes Status: Acute Assessment & Plan: -Follows with GI at Dr. Yu -continue Xifaxan/lactulose (6) Depression with anxiety Current Visit: Yes Status: Acute Assessment & Plan: -continue Prozac/alprazolam Code(s): F41.8 - OTHER SPECIFIED ANXIETY DISORDERS (7) Obesities, morbid Current Visit: Yes Status: Acute Assessment & Plan: -advised diet and exercise Code(s): E66.01 - MORBID (SEVERE) OBESITY DUE TO EXCESS CALORIES (8) CAD (coronary artery disease) Current Visit: Yes Status: Acute Assessment & Plan: -Follows with Mateoruben Fierro -continue home meds -Denies chest pain -trops reviewed and WNL x 2 -BNP reviewed and at 1680 -No acute cardiopulmonary on chest CT Code(s): I25.10 - ATHSCL HEART DISEASE OF [place] CORONARY ARTERY W/O ANG PCTRS (9) CHF (congestive heart failure) Current Visit: Yes Status: Acute Assessment & Plan: -No recent echo on file -does not appear to be in exacerbation -Lasix given in ED -BNP at 1680 -No effusions/infiltrates noted on CT chest -Daily weights/elevate HOB -strict I&O -continue home meds Code(s): I50.9 - HEART FAILURE, UNSPECIFIED (10) HTN (hypertension) Current Visit: Yes Status: Acute Assessment & Plan: -BP stable, continue home meds VTE: Eliquis PPI: Protonic Dispo: 1-2 days Code Status: Full Code(s): I10 - ESSENTIAL (PRIMARY) HYPERTENSION Code(s): J44.1 - CHRONIC OBSTRUCTIVE PULMONARY DISEASE W (ACUTE) EXACERBATION (2) Acute respiratory failure with hypoxia Current Visit: Yes Status: Acute Code(s): J96.01 - ACUTE RESPIRATORY FAILURE WITH HYPOXIA (3) Afib Current Visit: Yes Status: Acute Code(s): I48.91 - UNSPECIFIED ATRIAL FIBRILLATION (4) Hypothyroid Current Visit: Yes Status: Acute Code(s): E03.9 - HYPOTHYROIDISM, UNSPECIFIED (5) Cirrhosis Current Visit: Yes Status: Acute (6) Depression with anxiety Current Visit: Yes Status: Acute Code(s): F41.8 - OTHER SPECIFIED ANXIETY DISORDERS (7) Obesities, morbid Current Visit: Yes Status: Acute Code(s): E66.01 - MORBID (SEVERE) OBESITY DUE TO EXCESS CALORIES (8) CAD (coronary artery disease) Current Visit: Yes Status: Acute Code(s): I25.10 - ATHSCL HEART DISEASE OF [place] CORONARY ARTERY W/O ANG PCTRS (9) CHF (congestive heart failure) Current Visit: Yes Status: Acute Code(s): I50.9 - HEART FAILURE, UNSPECIFIED (10) HTN (hypertension) Current Visit: Yes Status: Acute Code(s): I10 - ESSENTIAL (PRIMARY) HYPERTENSION
[2024-07-13 05:47] LABS: ALBUMIN 3.1 g/dL (3.5-5.0); ANION GAP 9.1 MEQ/L (5-15); BILIRUBIN,TOTAL 0.7 mg/dL (0.2-1.3); Calcium 8.4 mg/dL (8.4-10.2); Creatinine 1 0.59 mg/dL (0.66-1.25); EST GLOMERULAR FILTRATION RATE 114.6 ML/MIN; MAGNESIUM 1.9 mg/dL (1.6-2.3); Potassium 3.6 mmol/L (3.5-5.1); Total Protein 7.2 g/dL (6.3-8.2)
[2024-07-13] MEDS ORDERED: Sterile H2O 10 ml IJ ONE (06:33)
[2024-07-13] MEDS ORDERED: solu-MEDROL ONE (06:33)
[2024-07-13] MEDS: NORCO 5/325 MG PO PRN (14:06)
[2024-07-13] MEDS: solu-MEDROL 60 MG, Sterile H2O 10 ml 2 ML IV SCH (14:08)
[2024-07-13] MEDS: xanAX 0.5 MG PO PRN (17:40)
[2024-07-14 04:57] LABS: Absolute Neutrophil Ct (ANC) 6.33 x10^3/uL (1.78-5.38); Basophil (Absolute #) 0 x10^3/uL (0.01-0.08); Eosinophil (Absolute #) 0 x10^3/uL (0.04-0.54); Hematocrit 51.7 % (40.1-51.0); Hemoglobin 16.4 g/dL (13.7-17.5); IMMATURE GRAN # 0.02 x10^3u/L (0.001-0.031); IMMATURE GRAN % 0.3 % (0.001-0.429); Lymphocytes % 8.2 % (21.8-53.1); Mean Cell Volume 92.8 fL (79.0-92.2); Mean Corpuscular Hemoglobin 29.4 pg (25.7-32.2); Mean Corpuscular Hgb Concent. 31.7 g/dL (32.3-36.5); Mean Platelet Volume 12.3 fL (9.4-12.4); Monocyte (Absolute #) 0.33 x10^3/uL (0.30-0.82); Monocytes % 4.5 % (5.3-12.2); Platelet Count 56 x10^3/uL (163-337); Red Blood Count 5.57 x10^6/uL (4.63-6.08); Red Cell Distribution Width 16.2 % (11.6-14.4); White Blood Count 7.3 x10^3/uL (4.23-9.07)
--- NOTE | 2024-07-14 05:04 | PCM.NOTE ---
Date and Time: 07/14/24 0503 Subjective Assessment: Mr. Alston is a 54 year old male with a pmhx of AFIB (Eliquis), COPD(2L at baseline), hypothyroidism, depression/anxiety, cirrhosis, hepatitis, CAD, CHF, and hypertension who presented to ED 07/12/24 with complaints of fever, wheezing, cough and shortness of breath. Patient reports that symptoms began las t night. He states that he has been experiencing a productive cough with yellow sputum, sore throat, fever Tmax of 101.6, and progressive shortness of breath. At baseline he is on 2L of oxygen but was requiring 6L which prompted him to report to ED. He endorses chronic RUQ pain and occasional nausea. Denies urinary frequency, dysuria, retention, or hematuria. Does state that he experiences nocturnal urinary incontinence. Of note he did quit smoking one week ago. Upon arrival to ED patient was tachycardic with spo2 at 88% on 5L, patient placed on 6L with spo2 at 92%. CT chest w/contrast negative for PE and acute cardiopulmonary processes. Lab findings remarkable for lactic acidosis, and hypomagnesemia. BNP elevated at 1680. COVID/FLU/RSV negative. Patient given 250ml fluid bolus, solumedrol, DuoNeb treatment, and lasix in ED. Admit patient for COPD exacerbation. Patient now on BIPAP. Pulmonology consult unavailable at this time. 07/13/24: Met with patient bedside. Endorses improvement in dyspnea and cough. Patient of BIPAP now on 11L. Lung sounds coarse on auscultation with exp wheezing. Pulmonology unavailable for consult. Plan to continue abx and steroid. Most likely will be here for a few more days. Denies fever, cp, CASAS, dizziness, N/V/. 07/14: No overnight events noted. Endorses increased dyspnea. Cough with production. Now on 10L oxymask - Bipap qhs. Will obtain CXR today. Reports increase in chronic back pain, requesting higher dose of norco. Denies fever, cp, abdominal pain, CASAS, dizziness, N/V/D. - Review of Systems Constitutional: No Symptoms Eyes: No Symptoms Ears, Nose, & Throat: No Symptoms Respiratory: Cough, Short Of Breath, Wheezing Cardiac: No Symptoms Abdominal/Gastrointestinal: Abdominal Pain (chronic), Nausea, Diarrhea (lactulose) Genitourinary Symptoms: No Symptoms Musculoskeletal: No Symptoms Neurological: No Symptoms Psychological: No Symptoms Endocrine: No Symptoms Hematologic/Lymphatic: No Symptoms Immunological/Allergic: No Symptoms Objective Exam General Appearance: no apparent distress Neurologic Exam: alert, oriented x 3, cooperative Skin Exam: normal color Respiratory Exam: diminished breath sounds, crackles/rales, wheezing Cardiovascular Exam: irregular Gastrointestinal/Abdomen Exam: soft, normal bowel sounds Extremity Exam: other (pvd) Back Exam: normal inspection Male Genitalia Exam: deferred Rectal Exam: deferred Objective Data Vital Signs: Vital Signs - 24 hr Temp Pulse Resp BP Pulse Ox 07/14/24 00:00 97.9 F 86 22 117/70 95 07/13/24 20:00 97.7 F 98 H 22 123/76 94 L 07/13/24 19:13 96 H 16 94 L 07/13/24 16:15 96 07/13/24 16:00 98.9 F 93 H 20 133/93 93 L 07/13/24 13:19 101 H 24 96 07/13/24 12:00 98.1 F 90 22 195/88 94 L 07/13/24 07:53 97.9 F 82 24 143/101 96 07/13/24 06:57 91 H 26 H 96 Pain Assessment - Last Documented Pain Intensity 3 Pain Scale Used 0-10 Pain Scale Intake and Output: Intake & Output 07/11/24 07/12/24 07/13/24 07/14/24 11:59 11:59 11:59 11:59 Intake Total 0 1380 Output Total 2575 2100 Balance -2575 -720 Weight 192.4 kg 187.9 kg Lab Results: Lab Results-Last 24 Hours 07/13/24 07/13/24 07/13/24 Range/Units 04:55 05:04 05:04 WBC 7.1 (4.23-9.07) x10^3/uL RBC 5.37 (4.63-6.08) x10^6/uL Hgb 16.1 (13.7-17.5) g/dL Hct 49.2 (40.1-51.0) % MCV 91.6 (79.0-92.2) fL MCH 30.0 (25.7-32.2) pg MCHC 32.7 (32.3-36.5) g/dL RDW 16.4 H (11.6-14.4) % Plt Count 51 L (163-337) x10^3/uL MPV 11.4 (9.4-12.4) fL Gran % 87.4 H (34.0-67.9) % Immature Gran % (Auto) 0.3 (0.001-0.429) % Nucleat RBC Rel Count 0.0 (0.00-0.2) % Eos # (Auto) 0 L (0.04-0.54) x10^3/uL Immature Gran # (Auto) 0.02 (0.001-0.031) x10^3u/L Absolute Lymphs (auto) 0.55 L (1.32-3.57) x10^3/uL Absolute Monos (auto) 0.32 (0.30-0.82) x10^3/uL Absolute Nucleated RBC 0.00 (0.00-0.012) x10^3u/L Lymphocytes % 7.7 L (21.8-53.1) % Monocytes % 4.5 L (5.3-12.2) % Eosinophils % 0.0 L (0.8-7.0) % Basophils % 0.1 L (0.2-1.2) % Absolute Granulocytes 6.23 H (1.78-5.38) x10^3/uL Basophils # 0.01 (0.01-0.08) x10^3/uL Sodium 138 (135-145) mmol/L Potassium 3.6 (3.5-5.1) mmol/L Chloride 101 (98-107) mmol/L Carbon Dioxide 32 H (22-30) mmol/L Anion Gap 9.1 (5-15) MEQ/L BUN 7 L (9-20) mg/dL Creatinine 0.59 L (0.66-1.25) mg/dL Estimated GFR 114.6 ML/MIN Glucose 205 H (74-106) mg/dL Lactic Acid 3.3 H (0.4-2.0) Calcium 8.4 (8.4-10.2) mg/dL Magnesium 1.9 (1.6-2.3) mg/dL Total Bilirubin 0.70 (0.2-1.3) mg/dL AST 50 (17-59) U/L ALT 28 (0-50) U/L Alkaline Phosphatase 87 (38-126) U/L NT-Pro-B Natriuret Pep 710 (<300) pg/mL Serum Total Protein 7.2 (6.3-8.2) g/dL Albumin 3.1 L (3.5-5.0) g/dL 07/14/24 Range/Units 04:50 WBC 7.3 (4.23-9.07) x10^3/uL RBC 5.57 (4.63-6.08) x10^6/uL Hgb 16.4 (13.7-17.5) g/dL Hct 51.7 H (40.1-51.0) % MCV 92.8 H (79.0-92.2) fL MCH 29.4 (25.7-32.2) pg MCHC 31.7 L (32.3-36.5) g/dL RDW 16.2 H (11.6-14.4) % Plt Count 56 L (163-337) x10^3/uL MPV 12.3 (9.4-12.4) fL Gran % 87.0 H (34.0-67.9) % Immature Gran % (Auto) 0.3 (0.001-0.429) % Nucleat RBC Rel Count 0.0 (0.00-0.2) % Eos # (Auto) 0 L (0.04-0.54) x10^3/uL Immature Gran # (Auto) 0.02 (0.001-0.031) x10^3u/L Absolute Lymphs (auto) 0.60 L (1.32-3.57) x10^3/uL Absolute Monos (auto) 0.33 (0.30-0.82) x10^3/uL Absolute Nucleated RBC 0.00 (0.00-0.012) x10^3u/L Lymphocytes % 8.2 L (21.8-53.1) % Monocytes % 4.5 L (5.3-12.2) % Eosinophils % 0.0 L (0.8-7.0) % Basophils % 0.0 L (0.2-1.2) % Absolute Granulocytes 6.33 H (1.78-5.38) x10^3/uL Basophils # 0 L (0.01-0.08) x10^3/uL Sodium (135-145) mmol/L Potassium (3.5-5.1) mmol/L Chloride (98-107) mmol/L Carbon Dioxide (22-30) mmol/L Anion Gap (5-15) MEQ/L BUN (9-20) mg/dL Creatinine (0.66-1.25) mg/dL Estimated GFR ML/MIN Glucose (74-106) mg/dL Lactic Acid (0.4-2.0) Calcium (8.4-10.2) mg/dL Magnesium (1.6-2.3) mg/dL Total Bilirubin (0.2-1.3) mg/dL AST (17-59) U/L ALT (0-50) U/L Alkaline Phosphatase (38-126) U/L NT-Pro-B Natriuret Pep (<300) pg/mL Serum Total Protein (6.3-8.2) g/dL Albumin (3.5-5.0) g/dL Radiology Exams: Radiology Procedures Category Date Time Status CHEST 1 VIEW (PORTABLE) Stat Exams 07/12/24 08:38 Completed CHEST WITH CONTRAST [CT] Stat Exams 07/12/24 11:45 Completed Multi-Disciplinary Progress Notes: Multi-Disciplinary Progress Notes 07/13/24 13:33 Case Management Note by Charmaine Barahona S/W PRATIK- PATIENT HAS ORDERS FOR 2L/NC 22/03 WITH PORTABILITY Initialized on 07/13/24 13:33 - END OF NOTE Assessment/Plan (1) COPD exacerbation Current Visit: Yes Status: Acute Assessment & Plan: Oxygen at baseline 2L - supplemental oxygen with goal spo2 88-92% - now on 6L - wean as appropriate -DuoNeb -CT chest w/contrast reviewed and negative for PE and acute cardiopulmonary processes -COVID/Flu/RSV negative -Solumedrol 40mg q8H -titrate -Azithromycin -ABG with significant hypoxia/lethargy +flu shot/pneumococcal on discharge if appropriate -consider pulm consult (patient follows with Dr. Gallegos) if no improvement 07/13: -Pulm unavailable for consult -Solumedrol 60mg q8H -continue azithromycin -LA reviewed, improving 3.3<7.1 07/14: -continue solumedrol/azithromycin -Increased shortness of breath, lung auscultation with coarse crackles/exp wheezing -CXR -CBC reviewed, wbc wnl -LA pending -Requiring BIPAP at night - overnight sleep study OP Code(s): J44.1 - CHRONIC OBSTRUCTIVE PULMONARY DISEASE W (ACUTE) EXACERBATION (2) Acute respiratory failure with hypoxia Current Visit: Yes Status: Acute Assessment & Plan: -secondary to copd exac - see above Code(s): J96.01 - ACUTE RESPIRATORY FAILURE WITH HYPOXIA (3) Afib Current Visit: Yes Status: Acute Assessment & Plan: -continue home meds Eliquis/metoprolol -check TSH -EKG with AFIB HR 112 no acute ischemic changes 07/13: -HR controlled -Tsh reviewed, WNL Code(s): I48.91 - UNSPECIFIED ATRIAL FIBRILLATION (4) Hypothyroid Current Visit: Yes Status: Acute Assessment & Plan: --continue levothyroxine -check TSH 07/13: -TSH reviewed and WNL Code(s): E03.9 - HYPOTHYROIDISM, UNSPECIFIED (5) Cirrhosis Current Visit: Yes Status: Acute Assessment & Plan: -Follows with GI at [facility]. Yu -continue Xifaxan/lactulose (6) Depression with anxiety Current Visit: Yes Status: Acute Assessment & Plan: -continue Prozac/alprazolam Code(s): F41.8 - OTHER SPECIFIED ANXIETY DISORDERS (7) Obesities, morbid Current Visit: Yes Status: Acute Assessment & Plan: -advised diet and exercise Code(s): E66.01 - MORBID (SEVERE) OBESITY DUE TO EXCESS CALORIES (8) CAD (coronary artery disease) Current Visit: Yes Status: Acute Assessment & Plan: -Follows with Mateoruben Fierro -continue home meds -Denies chest pain -trops reviewed and WNL x 2 -BNP reviewed and at 1680 -No acute cardiopulmonary on chest CT Code(s): I25.10 - ATHSCL HEART DISEASE OF [place] CORONARY ARTERY W/O ANG PCTRS (9) CHF (congestive heart failure) Current Visit: Yes Status: Acute Assessment & Plan: -No recent echo on file -does not appear to be in exacerbation -Lasix given in ED -BNP at 1680 -No effusions/infiltrates noted on CT chest -Daily weights/elevate HOB -strict I&O -continue home meds Code(s): I50.9 - HEART FAILURE, UNSPECIFIED (10) HTN (hypertension) Current Visit: Yes Status: Acute Assessment & Plan: -BP stable, continue home meds VTE: Eliquis PPI: Protonic Dispo: 1-2 days Code Status: Full Code(s): J44.1 - CHRONIC OBSTRUCTIVE PULMONARY DISEASE W (ACUTE) EXACERBATION (2) Acute respiratory failure with hypoxia Current Visit: Yes Status: Acute Code(s): J96.01 - ACUTE RESPIRATORY FAILURE WITH HYPOXIA (3) Afib Current Visit: Yes Status: Acute Code(s): I48.91 - UNSPECIFIED ATRIAL FIBRILLATION (4) Hypothyroid Current Visit: Yes Status: Acute Code(s): E03.9 - HYPOTHYROIDISM, UNSPECIFIED (5) Cirrhosis Current Visit: Yes Status: Acute (6) Depression with anxiety Current Visit: Yes Status: Acute Code(s): F41.8 - OTHER SPECIFIED ANXIETY DISORDERS (7) Obesities, morbid Current Visit: Yes Status: Acute Code(s): E66.01 - MORBID (SEVERE) OBESITY DUE TO EXCESS CALORIES (8) CAD (coronary artery disease) Current Visit: Yes Status: Acute Code(s): I25.10 - ATHSCL HEART DISEASE OF [place] CORONARY ARTERY W/O ANG PCTRS (9) CHF (congestive heart failure) Current Visit: Yes Status: Acute Code(s): I50.9 - HEART FAILURE, UNSPECIFIED (10) HTN (hypertension) Current Visit: Yes Status: Acute Code(s): I10 - ESSENTIAL (PRIMARY) HYPERTENSION
[2024-07-14 05:17] LABS: ALBUMIN 3.1 g/dL (3.5-5.0); ANION GAP 5.2 MEQ/L (5-15); BILIRUBIN,TOTAL 0.6 mg/dL (0.2-1.3); Calcium 8.5 mg/dL (8.4-10.2); Creatinine 1 0.56 mg/dL (0.66-1.25); EST GLOMERULAR FILTRATION RATE 116.4 ML/MIN; Potassium 4.3 mmol/L (3.5-5.1); Total Protein 7.2 g/dL (6.3-8.2)
[2024-07-14] MEDS ORDERED: solu-MEDROL ONE (06:11)
--- NOTE | 2024-07-14 11:51 | XRAY ---
Indication: Increasing short of breath. Comparison: July 12, 2024 Portable chest again demonstrates chronic lung markings. No focal infiltrate, consolidation, or large effusion. Heart not enlarged for AP portable technique. Bony thorax intact again with osteopenia and degenerative changes. Impression: Nonacute chest with chronic features.
--- NOTE | 2024-07-15 05:01 | PCM.NOTE ---
Date and Time: 07/15/24 0500 Subjective Assessment: Mr. Alston is a 54 year old male with a pmhx of AFIB (Eliquis), COPD(2L at baseline), hypothyroidism, depression/anxiety, cirrhosis, hepatitis, CAD, CHF, and hypertension who presented to ED 07/12/24 with complaints of fever, wheezing, cough and shortness of breath. Patient reports that symptoms began las t night. He states that he has been experiencing a productive cough with yellow sputum, sore throat, fever Tmax of 101.6, and progressive shortness of breath. At baseline he is on 2L of oxygen but was requiring 6L which prompted him to report to ED. He endorses chronic RUQ pain and occasional nausea. Denies urinary frequency, dysuria, retention, or hematuria. Does state that he experiences nocturnal urinary incontinence. Of note he did quit smoking one week ago. Upon arrival to ED patient was tachycardic with spo2 at 88% on 5L, patient placed on 6L with spo2 at 92%. CT chest w/contrast negative for PE and acute cardiopulmonary processes. Lab findings remarkable for lactic acidosis, and hypomagnesemia. BNP elevated at 1680. COVID/FLU/RSV negative. Patient given 250ml fluid bolus, solumedrol, DuoNeb treatment, and lasix in ED. Admit patient for COPD exacerbation. Patient now on BIPAP. Pulmonology consult unavailable at this time. 07/13/24: Met with patient bedside. Endorses improvement in dyspnea and cough. Patient of BIPAP now on 11L. Lung sounds coarse on auscultation with exp wheezing. Pulmonology unavailable for consult. Plan to continue abx and steroid. Most likely will be here for a few more days. Denies fever, cp, CASAS, dizziness, N/V/. 07/14: No overnight events noted. Endorses increased dyspnea. Cough with production. Now on 10L oxymask - Bipap qhs. Will obtain CXR today. Reports increase in chronic back pain, requesting higher dose of norco. Denies fever, cp, abdominal pain, CASAS, dizziness, N/V/D. 07/15: Patient endorses improvement in dyspnea. Now on 8L oxymask. CXR from 07/14/24 with no acute findings. Encouraged patient to ambulate, use IS, and sit up in chair. Labs and vitals stable. Gram stain with Gram+/-. Will add ceftriaxone. - Review of Systems Constitutional: No Symptoms Eyes: No Symptoms Ears, Nose, & Throat: No Symptoms Respiratory: Cough, Short Of Breath Cardiac: No Symptoms Abdominal/Gastrointestinal: Abdominal Pain (chronic) Genitourinary Symptoms: No Symptoms Musculoskeletal: Back Pain (chronic) Skin: Other (PVD) Neurological: No Symptoms Psychological: No Symptoms Endocrine: No Symptoms Hematologic/Lymphatic: No Symptoms Immunological/Allergic: No Symptoms Objective Exam General Appearance: no apparent distress Neurologic Exam: alert, oriented x 3, cooperative Skin Exam: normal color, other (PVD) Eye Exam: PERRL Ears, Nose, Throat Exam: normal ENT inspection Neck Exam: normal inspection Respiratory Exam: diminished breath sounds, crackles/rales Cardiovascular Exam: regular rate/rhythm, normal peripheral pulses Gastrointestinal/Abdomen Exam: soft, normal bowel sounds Extremity Exam: normal inspection Back Exam: normal inspection Male Genitalia Exam: deferred Rectal Exam: deferred Objective Data Vital Signs: Vital Signs - 24 hr Temp Pulse Resp BP Pulse Ox 07/15/24 04:00 97.6 F 107 H 24 103/65 96 07/15/24 01:45 91 H 20 93 L 07/14/24 23:54 97.8 F 86 26 H 123/58 96 07/14/24 20:00 97.5 F 94 H 22 102/60 95 07/14/24 19:00 102 H 18 95 07/14/24 16:00 97.9 F 76 20 151/73 94 L 07/14/24 12:51 89 24 91 L 07/14/24 12:00 97.3 F 89 24 143/98 91 L 07/14/24 08:00 97.3 F 89 22 143/98 95 07/14/24 06:56 88 24 96 Pain Assessment - Last Documented Pain Intensity 5 Pain Scale Used 0-10 Pain Scale Intake and Output: Intake & Output 07/12/24 07/13/24 07/14/24 07/15/24 11:59 11:59 11:59 11:59 Intake Total 0 2700 2140 Output Total 2572 3635 1800 Balance -2575 -1025 340 Weight 192.4 kg 187.9 kg 188.6 kg 188.6 kg Lab Results: Lab Results-Last 24 Hours 07/14/24 07/14/24 07/14/24 Range/Units 04:50 04:50 11:35 WBC 7.3 (4.23-9.07) x10^3/uL RBC 5.57 (4.63-6.08) x10^6/uL Hgb 16.4 (13.7-17.5) g/dL Hct 51.7 H (40.1-51.0) % MCV 92.8 H (79.0-92.2) fL MCH 29.4 (25.7-32.2) pg MCHC 31.7 L (32.3-36.5) g/dL RDW 16.2 H (11.6-14.4) % Plt Count 56 L (163-337) x10^3/uL MPV 12.3 (9.4-12.4) fL Gran % 87.0 H (34.0-67.9) % Immature Gran % (Auto) 0.3 (0.001-0.429) % Nucleat RBC Rel Count 0.0 (0.00-0.2) % Eos # (Auto) 0 L (0.04-0.54) x10^3/uL Immature Gran # (Auto) 0.02 (0.001-0.031) x10^3u/L Absolute Lymphs (auto) 0.60 L (1.32-3.57) x10^3/uL Absolute Monos (auto) 0.33 (0.30-0.82) x10^3/uL Absolute Nucleated RBC 0.00 (0.00-0.012) x10^3u/L Lymphocytes % 8.2 L (21.8-53.1) % Monocytes % 4.5 L (5.3-12.2) % Eosinophils % 0.0 L (0.8-7.0) % Basophils % 0.0 L (0.2-1.2) % Absolute Granulocytes 6.33 H (1.78-5.38) x10^3/uL Basophils # 0 L (0.01-0.08) x10^3/uL Sodium 140 (135-145) mmol/L Potassium 4.3 (3.5-5.1) mmol/L Chloride 102 (98-107) mmol/L Carbon Dioxide 37 H (22-30) mmol/L Anion Gap 5.2 (5-15) MEQ/L BUN 9 (9-20) mg/dL Creatinine 0.56 L (0.66-1.25) mg/dL Estimated GFR 116.4 ML/MIN Glucose 166 H (74-106) mg/dL Lactic Acid 2.0 (0.4-2.0) Calcium 8.5 (8.4-10.2) mg/dL Total Bilirubin 0.60 (0.2-1.3) mg/dL AST 54 (17-59) U/L ALT 26 (0-50) U/L Alkaline Phosphatase 96 (38-126) U/L Serum Total Protein 7.2 (6.3-8.2) g/dL Albumin 3.1 L (3.5-5.0) g/dL Radiology Exams: Radiology Procedures Category Date Time Status CHEST 1 VIEW (PORTABLE) Routine Exams 07/14/24 11:13 Completed Multi-Disciplinary Progress Notes: Multi-Disciplinary Progress Notes 07/15/24 03:32 Respiratory Note by Bella Chatterjee Took patient off bipap and placed back on 8L oxymizer. Pt is requesting to come off bipap at this time. Initialized on 07/15/24 03:32 - END OF NOTE 07/14/24 11:00 (created 07/14/24 13:31) Case Management Note by Charmaine Barahona S/W PATIENT- HE CONTINUES TO DENY ANY NEW NEEDS AT TIME OF DC. HE PLANS TO RETURN WITH HIS MOTHER WHO IS HIS CAREGIVER. PATIENT REPORTS HE ALREADY HAS WORKING OXYGEN WITH PORTABILITY AT HOME. Initialized on 07/14/24 13:31 - END OF NOTE Assessment/Plan (1) COPD exacerbation Current Visit: Yes Status: Acute Assessment & Plan: Oxygen at baseline 2L - supplemental oxygen with goal spo2 88-92% - now on 6L - wean as appropriate -DuoNeb -CT chest w/contrast reviewed and negative for PE and acute cardiopulmonary processes -COVID/Flu/RSV negative -Solumedrol 40mg q8H -titrate -Azithromycin -ABG with significant hypoxia/lethargy +flu shot/pneumococcal on discharge if appropriate -consider pulm consult (patient follows with Dr. Gallegos) if no improvement 07/13: -Pulm unavailable for consult -Solumedrol 60mg q8H -continue azithromycin -LA reviewed, improving 3.3<7.1 07/14: -continue solumedrol/azithromycin -Increased shortness of breath, lung auscultation with coarse crackles/exp wheezing -CXR -CBC reviewed, wbc wnl -LA pending -Requiring BIPAP at night - overnight sleep study OP 07/15: -improving - increased aeration on lung auscultation -continue abx/steroid -CXR reviewed from 07/14 - with no acute findings -Sputum gram stain with gram+/- will add ceftriaxone -Received 1500mg of azithromycin - discontinue -2L at baseline - now on 8L oxymizer -improved from yesterday at 10L Code(s): J44.1 - CHRONIC OBSTRUCTIVE PULMONARY DISEASE W (ACUTE) EXACERBATION (2) Acute respiratory failure with hypoxia Current Visit: Yes Status: Acute Assessment & Plan: -secondary to copd exac - see above Code(s): J96.01 - ACUTE RESPIRATORY FAILURE WITH HYPOXIA (3) Afib Current Visit: Yes Status: Acute Assessment & Plan: -continue home meds Eliquis/metoprolol -check TSH -EKG with AFIB HR 112 no acute ischemic changes 07/13: -HR controlled -Tsh reviewed, WNL Code(s): I48.91 - UNSPECIFIED ATRIAL FIBRILLATION (4) Hypothyroid Current Visit: Yes Status: Acute Assessment & Plan: --continue levothyroxine -check TSH 07/13: -TSH reviewed and WNL Code(s): E03.9 - HYPOTHYROIDISM, UNSPECIFIED (5) Cirrhosis Current Visit: Yes Status: Acute Assessment & Plan: -Follows with GI at Dr. Yu -continue Xifaxan/lactulose (6) Depression with anxiety Current Visit: Yes Status: Acute Assessment & Plan: -continue Prozac/alprazolam Code(s): F41.8 - OTHER SPECIFIED ANXIETY DISORDERS (7) Obesities, morbid Current Visit: Yes Status: Acute Assessment & Plan: -advised diet and exercise Code(s): E66.01 - MORBID (SEVERE) OBESITY DUE TO EXCESS CALORIES (8) CAD (coronary artery disease) Current Visit: Yes Status: Acute Assessment & Plan: -Follows with Mateo Fierro -continue home meds -Denies chest pain -trops reviewed and WNL x 2 -BNP reviewed and at 1680 -No acute cardiopulmonary on chest CT Code(s): I25.10 - ATHSCL HEART DISEASE OF [place] CORONARY ARTERY W/O ANG PCTRS (9) CHF (congestive heart failure) Current Visit: Yes Status: Acute Assessment & Plan: -No recent echo on file -does not appear to be in exacerbation -Lasix given in ED -BNP at 1680 -No effusions/infiltrates noted on CT chest -Daily weights/elevate HOB -strict I&O -continue home meds Code(s): I50.9 - HEART FAILURE, UNSPECIFIED (10) HTN (hypertension) Current Visit: Yes Status: Acute Assessment & Plan: -BP stable, continue home meds VTE: Eliquis PPI: Protonic Dispo: 1-2 days Code Status: Full Code(s): J44.1 - CHRONIC OBSTRUCTIVE PULMONARY DISEASE W (ACUTE) EXACERBATION (2) Acute respiratory failure with hypoxia Current Visit: Yes Status: Acute Code(s): J96.01 - ACUTE RESPIRATORY FAILURE WITH HYPOXIA (3) Afib Current Visit: Yes Status: Acute Code(s): I48.91 - UNSPECIFIED ATRIAL FIBRILLATION (4) Hypothyroid Current Visit: Yes Status: Acute Code(s): E03.9 - HYPOTHYROIDISM, UNSPECIFIED (5) Cirrhosis Current Visit: Yes Status: Acute (6) Depression with anxiety Current Visit: Yes Status: Acute Code(s): F41.8 - OTHER SPECIFIED ANXIETY DISORDERS (7) Obesities, morbid Current Visit: Yes Status: Acute Code(s): E66.01 - MORBID (SEVERE) OBESITY DUE TO EXCESS CALORIES (8) CAD (coronary artery disease) Current Visit: Yes Status: Acute Code(s): I25.10 - ATHSCL HEART DISEASE OF [place] CORONARY ARTERY W/O ANG PCTRS (9) CHF (congestive heart failure) Current Visit: Yes Status: Acute Code(s): I50.9 - HEART FAILURE, UNSPECIFIED (10) HTN (hypertension) Current Visit: Yes Status: Acute Code(s): I10 - ESSENTIAL (PRIMARY) HYPERTENSION
[2024-07-15 05:55] LABS: Absolute Neutrophil Ct (ANC) 5.36 x10^3/uL (1.78-5.38); BASOPHIL % 0.2 % (0.2-1.2); Basophil (Absolute #) 0.01 x10^3/uL (0.01-0.08); Eosinophil (Absolute #) 0 x10^3/uL (0.04-0.54); Hematocrit 49.9 % (40.1-51.0); Hemoglobin 15.8 g/dL (13.7-17.5); IMMATURE GRAN # 0.02 x10^3u/L (0.001-0.031); IMMATURE GRAN % 0.3 % (0.001-0.429); Lymphocyte (Absolute #) 0.41 x10^3/uL (1.32-3.57); Lymphocytes % 6.7 % (21.8-53.1); Mean Cell Volume 94.5 fL (79.0-92.2); Mean Corpuscular Hemoglobin 29.9 pg (25.7-32.2); Mean Corpuscular Hgb Concent. 31.7 g/dL (32.3-36.5); Mean Platelet Volume 11.6 fL (9.4-12.4); Monocyte (Absolute #) 0.35 x10^3/uL (0.30-0.82); Monocytes % 5.7 % (5.3-12.2); Neutrophil % 87.1 % (34.0-67.9); Platelet Count 56 x10^3/uL (163-337); Red Blood Count 5.28 x10^6/uL (4.63-6.08); Red Cell Distribution Width 16.2 % (11.6-14.4); White Blood Count 6.2 x10^3/uL (4.23-9.07)
[2024-07-15 06:27] LABS: ALBUMIN 2.8 g/dL (3.5-5.0); ANION GAP 7.4 MEQ/L (5-15); BILIRUBIN,TOTAL 0.5 mg/dL (0.2-1.3); Calcium 8.6 mg/dL (8.4-10.2); Creatinine 1 0.59 mg/dL (0.66-1.25); EST GLOMERULAR FILTRATION RATE 114.6 ML/MIN; Potassium 4.3 mmol/L (3.5-5.1); Total Protein 6.6 g/dL (6.3-8.2)
[2024-07-15 09:22] LABS: Slide Review 1 YES
--- NOTE | 2024-07-16 04:53 | PCM.NOTE ---
Date and Time: 07/16/24 0452 Subjective Assessment: Mr. Alston is a 54 year old male with a pmhx of AFIB (Eliquis), COPD(2L at baseline), hypothyroidism, depression/anxiety, cirrhosis, hepatitis, CAD, CHF, and hypertension who presented to ED 07/12/24 with complaints of fever, wheezing, cough and shortness of breath. Patient reports that symptoms began las t night. He states that he has been experiencing a productive cough with yellow sputum, sore throat, fever Tmax of 101.6, and progressive shortness of breath. At baseline he is on 2L of oxygen but was requiring 6L which prompted him to report to ED. He endorses chronic RUQ pain and occasional nausea. Denies urinary frequency, dysuria, retention, or hematuria. Does state that he experiences nocturnal urinary incontinence. Of note he did quit smoking one week ago. Upon arrival to ED patient was tachycardic with spo2 at 88% on 5L, patient placed on 6L with spo2 at 92%. CT chest w/contrast negative for PE and acute cardiopulmonary processes. Lab findings remarkable for lactic acidosis, and hypomagnesemia. BNP elevated at 1680. COVID/FLU/RSV negative. Patient given 250ml fluid bolus, solumedrol, DuoNeb treatment, and lasix in ED. Admit patient for COPD exacerbation. Patient now on BIPAP. Pulmonology consult unavailable at this time. 07/13/24: Met with patient bedside. Endorses improvement in dyspnea and cough. Patient of BIPAP now on 11L. Lung sounds coarse on auscultation with exp wheezing. Pulmonology unavailable for consult. Plan to continue abx and steroid. Most likely will be here for a few more days. Denies fever, cp, CASAS, dizziness, N/V/. 07/14: No overnight events noted. Endorses increased dyspnea. Cough with production. Now on 10L oxymask - Bipap qhs. Will obtain CXR today. Reports increase in chronic back pain, requesting higher dose of norco. Denies fever, cp, abdominal pain, CASAS, dizziness, N/V/D. 07/15: Patient endorses improvement in dyspnea. Now on 8L oxymask. CXR from 07/14/24 with no acute findings. Encouraged patient to ambulate, use IS, and sit up in chair. Labs and vitals stable. Gram stain with Gram+/-. Will add ceftriaxone. 07/16: Patient now on 6L oxymask and endorsing improvement in shortness of breath. Cough productive states phlegm is not as thick. Patient up in chair today. Will continue current management. Discharge pending treatment response. - Review of Systems Constitutional: No Symptoms Eyes: No Symptoms Ears, Nose, & Throat: No Symptoms Respiratory: Cough, Short Of Breath Cardiac: No Symptoms Abdominal/Gastrointestinal: No Symptoms Genitourinary Symptoms: No Symptoms Musculoskeletal: Back Pain (chronic) Skin: No Symptoms, Other (PVD) Neurological: No Symptoms Psychological: No Symptoms Endocrine: No Symptoms Hematologic/Lymphatic: No Symptoms Immunological/Allergic: No Symptoms Objective Exam General Appearance: no apparent distress Neurologic Exam: alert, oriented x 3, cooperative Skin Exam: other (PVD BLE) Eye Exam: PERRL Ears, Nose, Throat Exam: normal ENT inspection Neck Exam: normal inspection Respiratory Exam: crackles/rales Cardiovascular Exam: regular rate/rhythm, normal heart sounds Gastrointestinal/Abdomen Exam: soft, normal bowel sounds Extremity Exam: normal inspection Back Exam: normal inspection Male Genitalia Exam: deferred Rectal Exam: deferred Objective Data Vital Signs: Vital Signs - 24 hr Temp Pulse Resp BP Pulse Ox 07/15/24 23:53 97.8 F 101 H 26 H 131/82 93 L 07/15/24 20:00 98.3 F 102 H 26 H 119/71 94 L 07/15/24 18:38 103 H 20 94 L 07/15/24 16:00 97.4 F 88 17 138/87 95 07/15/24 13:23 74 18 96 07/15/24 11:25 97 F 107 H 27 H 138/95 94 L 07/15/24 07:55 99 H 18 92 L 07/15/24 07:25 96.8 F 105 H 17 111/66 89 L Pain Assessment - Last Documented Pain Intensity 5 Pain Scale Used 0-10 Pain Scale Intake and Output: Intake & Output 07/13/24 07/14/24 07/15/24 07/16/24 11:59 11:59 11:59 11:59 Intake Total 0 2700 2590 1140 Output Total 2575 3905 2675 725 Balance -2575 -1025 -85 415 Weight 187.9 kg 188.6 kg 189.1 kg Lab Results: Lab Results-Last 24 Hours 07/15/24 07/15/24 07/15/24 Range/Units 04:00 05:38 05:38 WBC 6.2 (4.23-9.07) x10^3/uL RBC 5.28 (4.63-6.08) x10^6/uL Hgb 15.8 (13.7-17.5) g/dL Hct 49.9 (40.1-51.0) % MCV 94.5 H (79.0-92.2) fL MCH 29.9 (25.7-32.2) pg MCHC 31.7 L (32.3-36.5) g/dL RDW 16.2 H (11.6-14.4) % Plt Count 56 L (163-337) x10^3/uL MPV 11.6 (9.4-12.4) fL Gran % 87.1 H (34.0-67.9) % Immature Gran % (Auto) 0.3 (0.001-0.429) % Nucleat RBC Rel Count 0.0 (0.00-0.2) % Eos # (Auto) 0 L (0.04-0.54) x10^3/uL Immature Gran # (Auto) 0.02 (0.001-0.031) x10^3u/L Absolute Lymphs (auto) 0.41 L (1.32-3.57) x10^3/uL Absolute Monos (auto) 0.35 (0.30-0.82) x10^3/uL Absolute Nucleated RBC 0.00 (0.00-0.012) x10^3u/L Lymphocytes % 6.7 L (21.8-53.1) % Monocytes % 5.7 (5.3-12.2) % Eosinophils % 0.0 L (0.8-7.0) % Basophils % 0.2 (0.2-1.2) % Absolute Granulocytes 5.36 (1.78-5.38) x10^3/uL Basophils # 0.01 (0.01-0.08) x10^3/uL Sodium 139 (135-145) mmol/L Potassium 4.3 (3.5-5.1) mmol/L Chloride 100 (98-107) mmol/L Carbon Dioxide 36 H (22-30) mmol/L Anion Gap 7.4 (5-15) MEQ/L BUN 8 L (9-20) mg/dL Creatinine 0.59 L (0.66-1.25) mg/dL Estimated GFR 114.6 ML/MIN Glucose 248 H (74-106) mg/dL Lactic Acid 2.6 H (0.4-2.0) Calcium 8.6 (8.4-10.2) mg/dL Total Bilirubin 0.50 (0.2-1.3) mg/dL AST 58 (17-59) U/L ALT 32 (0-50) U/L Alkaline Phosphatase 134 H (38-126) U/L Serum Total Protein 6.6 (6.3-8.2) g/dL Albumin 2.8 L (3.5-5.0) g/dL Slides for Path Review YES Radiology Exams: Radiology Procedures Category Date Time Status CHEST 1 VIEW (PORTABLE) Routine Exams 07/14/24 11:13 Completed Assessment/Plan (1) COPD exacerbation Current Visit: Yes Status: Acute Assessment & Plan: Oxygen at baseline 2L - supplemental oxygen with goal spo2 88-92% - now on 6L - wean as appropriate -DuoNeb -CT chest w/contrast reviewed and negative for PE and acute cardiopulmonary processes -COVID/Flu/RSV negative -Solumedrol 40mg q8H -titrate -Azithromycin -ABG with significant hypoxia/lethargy +flu shot/pneumococcal on discharge if appropriate -consider pulm consult (patient follows with Dr. Gallegos) if no improvement 07/13: -Pulm unavailable for consult -Solumedrol 60mg q8H -continue azithromycin -LA reviewed, improving 3.3<7.1 07/14: -continue solumedrol/azithromycin -Increased shortness of breath, lung auscultation with coarse crackles/exp wheezing -CXR -CBC reviewed, wbc wnl -LA pending -Requiring BIPAP at night - overnight sleep study OP 07/15: -improving - increased aeration on lung auscultation -continue abx/steroid -CXR reviewed from 07/14 - with no acute findings -Sputum gram stain with gram+/- will add ceftriaxone -Received 1500mg of azithromycin - discontinue -2L at baseline - now on 8L oxymizer -improved from yesterday at 10L 07/16: -Final sputum culture with no predominant organism -vitals reviewed, patient now on 6L oxymask at 93% spo2 -continue abx and steroid Code(s): J44.1 - CHRONIC OBSTRUCTIVE PULMONARY DISEASE W (ACUTE) EXACERBATION (2) Acute respiratory failure with hypoxia Current Visit: Yes Status: Acute Assessment & Plan: -secondary to copd exac - see above Code(s): J96.01 - ACUTE RESPIRATORY FAILURE WITH HYPOXIA (3) Afib Current Visit: Yes Status: Acute Assessment & Plan: -continue home meds Eliquis/metoprolol -check TSH -EKG with AFIB HR 112 no acute ischemic changes 07/13: -HR controlled -Tsh reviewed, WNL 07/16: -HR elevated at 108 this morning -will monitor closely -continue tele Code(s): I48.91 - UNSPECIFIED ATRIAL FIBRILLATION (4) Hypothyroid Current Visit: Yes Status: Acute Assessment & Plan: --continue levothyroxine -check TSH 07/13: -TSH reviewed and WNL Code(s): E03.9 - HYPOTHYROIDISM, UNSPECIFIED (5) Cirrhosis Current Visit: Yes Status: Acute Assessment & Plan: -Follows with GI at [facility] Yu -continue Xifaxan/lactulose (6) Depression with anxiety Current Visit: Yes Status: Acute Assessment & Plan: -continue Prozac/alprazolam Code(s): F41.8 - OTHER SPECIFIED ANXIETY DISORDERS (7) Obesities, morbid Current Visit: Yes Status: Acute Assessment & Plan: -advised diet and exercise Code(s): E66.01 - MORBID (SEVERE) OBESITY DUE TO EXCESS CALORIES (8) CAD (coronary artery disease) Current Visit: Yes Status: Acute Assessment & Plan: -Follows with Mateoruben Fierro -continue home meds -Denies chest pain -trops reviewed and WNL x 2 -BNP reviewed and at 1680 -No acute cardiopulmonary on chest CT Code(s): I25.10 - ATHSCL HEART DISEASE OF [place] CORONARY ARTERY W/O ANG PCTRS (9) CHF (congestive heart failure) Current Visit: Yes Status: Acute Assessment & Plan: -No recent echo on file -does not appear to be in exacerbation -Lasix given in ED -BNP at 1680 -No effusions/infiltrates noted on CT chest -Daily weights/elevate HOB -strict I&O -continue home meds Code(s): I50.9 - HEART FAILURE, UNSPECIFIED (10) HTN (hypertension) Current Visit: Yes Status: Acute Assessment & Plan: -BP stable, continue home meds Vascular insufficiency -chronic -no edema - reviewed recent doppler and arterial US performed in 2021 VTE: Eliquis PPI: Protonic Dispo: 1-2 days Code Status: Full Code(s): J44.1 - CHRONIC OBSTRUCTIVE PULMONARY DISEASE W (ACUTE) EXACERBATION Code(s): J44.1 - CHRONIC OBSTRUCTIVE PULMONARY DISEASE W (ACUTE) EXACERBATION (2) Acute respiratory failure with hypoxia Current Visit: Yes Status: Acute Code(s): J96.01 - ACUTE RESPIRATORY FAILURE WITH HYPOXIA (3) Afib Current Visit: Yes Status: Acute Code(s): I48.91 - UNSPECIFIED ATRIAL FIBRILLATION (4) Hypothyroid Current Visit: Yes Status: Acute Code(s): E03.9 - HYPOTHYROIDISM, UNSPECIFIED (5) Cirrhosis Current Visit: Yes Status: Acute (6) Depression with anxiety Current Visit: Yes Status: Acute Code(s): F41.8 - OTHER SPECIFIED ANXIETY DISORDERS (7) Obesities, morbid Current Visit: Yes Status: Acute Code(s): E66.01 - MORBID (SEVERE) OBESITY DUE TO EXCESS CALORIES (8) CAD (coronary artery disease) Current Visit: Yes Status: Acute Code(s): I25.10 - ATHSCL HEART DISEASE OF [place] CORONARY ARTERY W/O ANG PCTRS (9) CHF (congestive heart failure) Current Visit: Yes Status: Acute Code(s): I50.9 - HEART FAILURE, UNSPECIFIED (10) HTN (hypertension) Current Visit: Yes Status: Acute Code(s): I10 - ESSENTIAL (PRIMARY) HYPERTENSION (11) Vascular insufficiency Current Visit: Yes Status: Chronic Code(s): I99.8 - OTHER DISORDER OF CIRCULATORY SYSTEM
[2024-07-16 05:18] LABS: Basophil (Absolute #) 0 x10^3/uL (0.01-0.08); Eosinophil (Absolute #) 0 x10^3/uL (0.04-0.54); Hematocrit 51.5 % (40.1-51.0); Hemoglobin 16.1 g/dL (13.7-17.5); IMMATURE GRAN # 0.04 x10^3u/L (0.001-0.031); IMMATURE GRAN % 0.7 % (0.001-0.429); Lymphocyte (Absolute #) 0.47 x10^3/uL (1.32-3.57); Lymphocytes % 8.1 % (21.8-53.1); Mean Cell Volume 95.4 fL (79.0-92.2); Mean Corpuscular Hemoglobin 29.8 pg (25.7-32.2); Mean Corpuscular Hgb Concent. 31.3 g/dL (32.3-36.5); Mean Platelet Volume 11.9 fL (9.4-12.4); Monocyte (Absolute #) 0.27 x10^3/uL (0.30-0.82); Monocytes % 4.7 % (5.3-12.2); Neutrophil % 86.5 % (34.0-67.9); Platelet Count 58 x10^3/uL (163-337); Red Cell Distribution Width 16.2 % (11.6-14.4); White Blood Count 5.8 x10^3/uL (4.23-9.07)
[2024-07-16 05:35] LABS: BILIRUBIN,TOTAL 0.6 mg/dL (0.2-1.3); Calcium 8.6 mg/dL (8.4-10.2); Creatinine 1 0.61 mg/dL (0.66-1.25); EST GLOMERULAR FILTRATION RATE 113.4 ML/MIN; Potassium 4.6 mmol/L (3.5-5.1); Total Protein 6.9 g/dL (6.3-8.2)
[2024-07-16 05:48] LABS: ANION GAP 12.6 MEQ/L (5-15)
[2024-07-16] MEDS: ROCEPHIN 1 GM / 100 ML NaCl 1 GM/100 ML IVPB IV SCH (09:48)
[2024-07-16 09:51] LABS: Slide Review 1 YES
[2024-07-17 05:17] LABS: Absolute Neutrophil Ct (ANC) 4.18 x10^3/uL (1.78-5.38); BASOPHIL % 0.2 % (0.2-1.2); Basophil (Absolute #) 0.01 x10^3/uL (0.01-0.08); Eosinophil (Absolute #) 0 x10^3/uL (0.04-0.54); Hematocrit 47.8 % (40.1-51.0); Hemoglobin 15.4 g/dL (13.7-17.5); IMMATURE GRAN # 0.04 x10^3u/L (0.001-0.031); IMMATURE GRAN % 0.8 % (0.001-0.429); Lymphocyte (Absolute #) 0.39 x10^3/uL (1.32-3.57); Lymphocytes % 7.9 % (21.8-53.1); Mean Cell Volume 93.5 fL (79.0-92.2); Mean Corpuscular Hemoglobin 30.1 pg (25.7-32.2); Mean Corpuscular Hgb Concent. 32.2 g/dL (32.3-36.5); Mean Platelet Volume 11.5 fL (9.4-12.4); Monocyte (Absolute #) 0.34 x10^3/uL (0.30-0.82); Monocytes % 6.9 % (5.3-12.2); Neutrophil % 84.2 % (34.0-67.9); Platelet Count 65 x10^3/uL (163-337); Red Blood Count 5.11 x10^6/uL (4.63-6.08); Red Cell Distribution Width 16.2 % (11.6-14.4)
[2024-07-17 05:50] LABS: ALBUMIN 2.7 g/dL (3.5-5.0); ANION GAP 4.6 MEQ/L (5-15); BILIRUBIN,TOTAL 0.6 mg/dL (0.2-1.3); Calcium 8.4 mg/dL (8.4-10.2); Creatinine 1 0.45 mg/dL (0.66-1.25); EST GLOMERULAR FILTRATION RATE 124.4 ML/MIN; Potassium 4.5 mmol/L (3.5-5.1); Total Protein 6.3 g/dL (6.3-8.2)
[2024-07-17 06:17] LABS: Slide Review 1 YES
--- NOTE | 2024-07-17 11:20 | PCM.NOTE ---
Date and Time: 07/17/24 1114 Subjective Assessment: Mr. Alston is a 54 year old male with a pmhx of AFIB (Eliquis), COPD(2L at baseline), hypothyroidism, depression/anxiety, Stage 4 liver disease, cirrhosis, hepatitis, CAD, CHF, and hypertension. He presented to ED 07/12/24 with complaints of fever, wheezing, cough and shortness of breath. Patient reports that symptoms began last night. He states that he has been experiencing a productive cough with yellow sputum, sore throat, fever Tmax of 101.6, and progressive shortness of breath. At baseline he is on 2L of oxygen but was requiring 6L which prompted him to report to ED. He endorsed chronic RUQ pain and occasional nausea. Denies urinary frequency, dysuria, retention, or hematuria. Does state that he experiences nocturnal urinary incontinence. Of note he did quit smoking one week ago. Upon arrival to ED patient was tachycardic with spo2 at 88% on 5L, patient placed on 6L with spo2 at 92%. CT chest w/contrast negative for PE and acute cardiopulmonary processes. Lab findings remarkable for lactic acidosis, and hypomagnesemia. BNP elevated at 1680. COVID/FLU/RSV negative. Patient given 250ml fluid bolus, solumedrol, DuoNeb treatment, and lasix in ED. Admitted patient for COPD exacerbation. Patient now on BIPAP at night and 5L oxymizer during the day. Pulmonology to consult today. Sputum culture + for moderate budding yeast, fluconazole daily started. Pt continues to have wheezing throughout. Advised pt to try and sit up in chair and in bed rather than lay flat as his weight is putting pressure on his chest. Pt sat up in the chair this afternoon. He romaine CP, Abd pain, N/V/D. He reports a chronic headache and states he takes IBP at home for this with some relief. - Review of Systems Constitutional: No Fever, No Chills Eyes: No Symptoms Ears, Nose, & Throat: No Symptoms Respiratory: Short Of Breath, No Cough Cardiac: No Chest Pain, No Edema, No Syncope Abdominal/Gastrointestinal: No Abdominal Pain, No Nausea, No Vomiting, No Diarrhea Genitourinary Symptoms: No Dysuria Musculoskeletal: No Back Pain, No Neck Pain Skin: No Rash Neurological: Headache, No Dizziness, No Focal Weakness, No Sensory Changes Psychological: No Symptoms Endocrine: No Symptoms Hematologic/Lymphatic: No Symptoms Immunological/Allergic: No Symptoms Objective Exam General Appearance: no apparent distress, alert, obese Neurologic Exam: alert, oriented x 3, cooperative, normal mood/affect, nml cerebellar function, sensation nml, No motor deficits Skin Exam: normal color, warm, dry Eye Exam: PERRL, EOMI, eyes nml inspection Ears, Nose, Throat Exam: normal ENT inspection, pharynx normal, moist mucous membranes Neck Exam: normal inspection, non-tender, supple, full range of motion Respiratory Exam: wheezing, No respiratory distress Cardiovascular Exam: regular rate/rhythm, normal heart sounds Gastrointestinal/Abdomen Exam: soft, No tenderness, No mass Extremity Exam: normal inspection, normal range of motion Back Exam: normal inspection, normal range of motion, No CVA tenderness, No vertebral tenderness Male Genitalia Exam: deferred Rectal Exam: deferred Objective Data Vital Signs: Vital Signs - 24 hr Temp Pulse Resp BP Pulse Ox 07/17/24 11:03 93 L 07/17/24 07:13 98.0 F 89 17 128/68 97 07/17/24 06:18 89 22 96 07/17/24 04:00 97.8 F 83 25 H 154/83 97 07/17/24 00:35 105 H 25 H 94 L 07/16/24 23:57 97.8 F 105 H 24 142/99 92 L 07/16/24 20:00 115 H 24 93 L 07/16/24 19:21 97.9 F 111 H 28 H 140/93 94 L 07/16/24 16:00 96.9 F 104 H 20 135/95 90 L 07/16/24 13:23 98 H 18 93 L 07/16/24 12:00 97 F 101 H 19 127/98 91 L Pain Assessment - Last Documented Pain Intensity 8 Pain Scale Used [facility] Intake and Output: Intake & Output 07/14/24 07/15/24 07/16/24 07/17/24 11:59 11:59 11:59 11:59 Intake Total 2700 2590 4420 4115 Output Total 3725 2675 1750 3300 Balance -1025 -85 2670 815 Weight 188.6 kg 189.1 kg 191.3 kg 194.2 kg Lab Results: Lab Results-Last 24 Hours 11/18/24 11/18/24 Range/Units 05:00 05:00 WBC 5.0 (4.23-9.07) x10^3/uL RBC 5.11 (4.63-6.08) x10^6/uL Hgb 15.4 (13.7-17.5) g/dL Hct 47.8 (40.1-51.0) % MCV 93.5 H (79.0-92.2) fL MCH 30.1 (25.7-32.2) pg MCHC 32.2 L (32.3-36.5) g/dL RDW 16.2 H (11.6-14.4) % Plt Count 65 L (163-337) x10^3/uL MPV 11.5 (9.4-12.4) fL Gran % 84.2 H (34.0-67.9) % Immature Gran % (Auto) 0.8 H (0.001-0.429) % Nucleat RBC Rel Count 0.0 (0.00-0.2) % Eos # (Auto) 0 L (0.04-0.54) x10^3/uL Immature Gran # (Auto) 0.04 H (0.001-0.031) x10^3u/L Absolute Lymphs (auto) 0.39 L (1.32-3.57) x10^3/uL Absolute Monos (auto) 0.34 (0.30-0.82) x10^3/uL Absolute Nucleated RBC 0.00 (0.00-0.012) x10^3u/L Lymphocytes % 7.9 L (21.8-53.1) % Monocytes % 6.9 (5.3-12.2) % Eosinophils % 0.0 L (0.8-7.0) % Basophils % 0.2 (0.2-1.2) % Absolute Granulocytes 4.18 (1.78-5.38) x10^3/uL Basophils # 0.01 (0.01-0.08) x10^3/uL Sodium 140 (135-145) mmol/L Potassium 4.5 (3.5-5.1) mmol/L Chloride 101 (98-107) mmol/L Carbon Dioxide 39 H (22-30) mmol/L Anion Gap 4.6 L (5-15) MEQ/L BUN 11 (9-20) mg/dL Creatinine 0.45 L (0.66-1.25) mg/dL Estimated GFR 124.4 ML/MIN Glucose 206 H (74-106) mg/dL Calcium 8.4 (8.4-10.2) mg/dL Total Bilirubin 0.60 (0.2-1.3) mg/dL AST 54 (17-59) U/L ALT 49 (0-50) U/L Alkaline Phosphatase 102 (38-126) U/L Serum Total Protein 6.3 (6.3-8.2) g/dL Albumin 2.7 L (3.5-5.0) g/dL Slides for Path Review YES Multi-Disciplinary Progress Notes: Multi-Disciplinary Progress Notes 07/17/24 09:54 Case Management Note by Charmaine Barahona S/W PATIENT ABOUT PLANS FOR DC- HE STILL ANTICIPATES TO DC HOME TO HIS PLF WITH HIS MOTHER A CAREGIVER. PATIENT HAS 24/7 OXYGEN AVAILABLE AT HOME ALREADY. PATIENT DENIES ANY NEW NEEDS AT THIS TIME Initialized on 07/17/24 09:54 - END OF NOTE Assessment/Plan (1) COPD exacerbation Current Visit: No Status: Acute Assessment & Plan: - Baseline 2LNC - Sputum culture + for budding yeast- fluconazole - On Bipap at noc and now 5L oxymizer when awake. - RT to wean O2 - Pulm consulted - Solumedrol 60mg q8H, DuoNeb, ceftriaxone, Advair - +flu shot/pneumococcal on discharge if appropriate - BC x2 negative - CBC, CMP reviewed - CXR X2 and CT chest reviewed Code(s): J44.1 - CHRONIC OBSTRUCTIVE PULMONARY DISEASE W (ACUTE) EXACERBATION (2) Budding yeast detected Current Visit: Yes Status: Acute Assessment & Plan: - In sputum culture - Start Fluconazole 100mg PO daily as pt has several med interactions and Stage 4 liver failure. Code(s): B37.9 - CANDIDIASIS, UNSPECIFIED (3) Acute respiratory failure with hypoxia Current Visit: Yes Status: Acute Assessment & Plan: - see above plan for COPD exacerbation Code(s): J96.01 - ACUTE RESPIRATORY FAILURE WITH HYPOXIA (4) Afib Current Visit: Yes Status: Chronic Assessment & Plan: - Continue Eliquis/metoprolol - TSH reviewed - Tele - HR controlled Code(s): I48.91 - UNSPECIFIED ATRIAL FIBRILLATION (5) CAD (coronary artery disease) Current Visit: Yes Status: Chronic Assessment & Plan: -Follows with Mateo Fierro -continue home meds -Denies chest pain -trops reviewed and WNL x 3 -BNP reviewed -No acute cardiopulmonary on chest CT Code(s): I25.10 - ATHSCL HEART DISEASE OF [place] CORONARY ARTERY W/O ANG PCTRS (6) CHF (congestive heart failure) Current Visit: Yes Status: Chronic Assessment & Plan: -No recent echo on file -does not appear to be in exacerbation -Lasix given in ED -BNP reviewed -No effusions/infiltrates noted on CT chest -Daily weights/elevate HOB -strict I&O -continue home meds Code(s): I50.9 - HEART FAILURE, UNSPECIFIED (7) Cirrhosis Current Visit: Yes Status: Chronic Assessment & Plan: -Follows with GI at Dr. Yu -continue Xifaxan/lactulose (8) Depression with anxiety Current Visit: Yes Status: Chronic Assessment & Plan: -continue Prozac/alprazolam - denies suicidal or homicidal ideation Code(s): F41.8 - OTHER SPECIFIED ANXIETY DISORDERS (9) HTN (hypertension) Current Visit: Yes Status: Chronic Assessment & Plan: -BP stable, continue home meds Code(s): I10 - ESSENTIAL (PRIMARY) HYPERTENSION (10) Hypothyroid Current Visit: Yes Status: Chronic Assessment & Plan: -continue levothyroxine -TSH reviewed and WNL Code(s): E03.9 - HYPOTHYROIDISM, UNSPECIFIED (11) Morbid obesity Current Visit: No Status: Chronic Assessment & Plan: -advised diet and exercise control Code(s): E66.01 - MORBID (SEVERE) OBESITY DUE TO EXCESS CALORIES (12) Thrombocytopenia Current Visit: No Status: Chronic Assessment & Plan: - Plt 65- trend- chronic - f/u with hematology at D/C - 2:2 Chronic liver disease and Eliquis (13) Vascular insufficiency Current Visit: Yes Status: Chronic Assessment & Plan: -chronic -no edema - reviewed recent doppler and arterial US performed in 2021 VTE: Eliquis PPI: Protonix Dispo: 1-2 days Code Status: Full Next of KIN: mother, Kimberli Alston [phone] Code(s): I99.8 - OTHER DISORDER OF CIRCULATORY SYSTEM
[2024-07-17] MEDS: Diflucan 100 MG PO SCH (12:52)
[2024-07-17] MEDS: Lasix 20 MG/2 ML IV SCH (14:49)
[2024-07-17] MEDS ORDERED: Advair Hfa 115/21 Common canister IH SCH (19:00)
[2024-07-18 05:10] LABS: Absolute Neutrophil Ct (ANC) 5.68 x10^3/uL (1.78-5.38); BASOPHIL % 0.2 % (0.2-1.2); Basophil (Absolute #) 0.01 x10^3/uL (0.01-0.08); Eosinophil (Absolute #) 0 x10^3/uL (0.04-0.54); Hematocrit 50.3 % (40.1-51.0); Hemoglobin 16.1 g/dL (13.7-17.5); IMMATURE GRAN # 0.08 x10^3u/L (0.001-0.031); IMMATURE GRAN % 1.2 % (0.001-0.429); Lymphocyte (Absolute #) 0.41 x10^3/uL (1.32-3.57); Lymphocytes % 6.2 % (21.8-53.1); Mean Cell Volume 93.3 fL (79.0-92.2); Mean Corpuscular Hemoglobin 29.9 pg (25.7-32.2); Mean Platelet Volume 11.6 fL (9.4-12.4); Monocyte (Absolute #) 0.42 x10^3/uL (0.30-0.82); Monocytes % 6.4 % (5.3-12.2); Platelet Count 67 x10^3/uL (163-337); Red Blood Count 5.39 x10^6/uL (4.63-6.08); White Blood Count 6.6 x10^3/uL (4.23-9.07)
[2024-07-18 05:25] LABS: ALBUMIN 2.9 g/dL (3.5-5.0); ANION GAP 7.2 MEQ/L (5-15); BILIRUBIN,TOTAL 0.6 mg/dL (0.2-1.3); Calcium 8.2 mg/dL (8.4-10.2); Creatinine 1 0.54 mg/dL (0.66-1.25); EST GLOMERULAR FILTRATION RATE 117.7 ML/MIN; Potassium 4.3 mmol/L (3.5-5.1); Total Protein 6.5 g/dL (6.3-8.2)
[2024-07-18 07:40] LABS: Slide Review 1 YES
[2024-07-18] MEDS ORDERED: HUMALOG SQ PRN (07:46)
--- NOTE | 2024-07-18 09:40 | PCM.NOTE ---
Date and Time: 07/18/24911 Subjective Assessment: 07/17/24 Mr. Alston is a 54 year old male with a pmhx of AFIB (Eliquis), COPD(2L at baseline), hypothyroidism, depression/anxiety, Stage 4 liver disease, cirrhosis, hepatitis, CAD, CHF, and hypertension. He presented to ED 07/12/24 with complaints of fever, wheezing, cough and shortness of breath. Patient reports that symptoms began last night. He states that he has been experiencing a productive cough with yellow sputum, sore throat, fever Tmax of 101.6, and progressive shortness of breath. At baseline he is on 2L of oxygen but was requiring 6L which prompted him to report to ED. He endorsed chronic RUQ pain and occasional nausea. Denies urinary frequency, dysuria, retention, or hematuria. Does state that he experiences nocturnal urinary incontinence. Of note he did quit smoking one week ago. Upon arrival to ED patient was tachycardic with spo2 at 88% on 5L, patient placed on 6L with spo2 at 92%. CT chest w/contrast negative for PE and acute cardiopulmonary processes. Lab findings remarkable for lactic acidosis, and hypomagnesemia. BNP elevated at 1680. COVID/FLU/RSV negative. Patient given 250ml fluid bolus, solumedrol, DuoNeb treatment, and lasix in ED. Admitted patient for COPD exacerbation. Patient now on BIPAP at night and 5L oxymizer during the day. Pulmonology to consult today. Sputum culture + for moderate budding yeast, fluconazole daily started. Pt continues to have wheezing throughout. Advised pt to try and sit up in chair and in bed rather than lay flat as his weight is putting pressure on his chest. Pt sat up in the chair this afternoon. He romaine CP, Abd pain, N/V/D. He reports a chronic headache and states he takes IBP at home for this with some relief. He takes Eliquis so this was not added at this time. 07/18/24 Pt sitting up in chair this AM eating breakfast. He states he is feeling better. Lung sounds have improved. He is now on 5L oxymizer.He was able to walk in the halls with staff yesterday. Per PT - they do not need to work with him since he did so well. Pt to walk TID- QID with staff. Per staff he has been urinating in he bed. Urged pt to try and get up and use the bathroom as well as sit up in chair as he does at home. Encouraged pt to walk in halls with staff. Pt would be a good candidate for Pulm rehab- discussed with case management. No changes per Pulm consult. RT to wean O2 as tolerated. Continue IV antibiotics, steroids, duonebs, advair, and fluconazole. Pt denies CP, Abd pain, N/V/D. Pt c/o lower back pain, encouraged pt to sit up in chair. Offered heating pad and pt declined. Pt asking for strong narcotics such as Morphine or Nubain. Explained strong narcotics are not appropriate at this time as it may cause respiratory depression. Will continue with [place] for pain. - Review of Systems Constitutional: No Fever, No Chills Eyes: No Symptoms Ears, Nose, & Throat: No Symptoms Respiratory: Short Of Breath, No Cough Cardiac: No Chest Pain, No Edema, No Syncope Abdominal/Gastrointestinal: No Abdominal Pain, No Nausea, No Vomiting, No Diarrhea Genitourinary Symptoms: No Dysuria Musculoskeletal: Back Pain (lumbar), No Neck Pain Skin: No Rash Neurological: No Dizziness, No Focal Weakness, No Sensory Changes Psychological: No Symptoms Endocrine: No Symptoms Hematologic/Lymphatic: No Symptoms Immunological/Allergic: No Symptoms Objective Exam General Appearance: no apparent distress, alert, obese Neurologic Exam: alert, oriented x 3, cooperative, normal mood/affect, nml cerebellar function, sensation nml, No motor deficits Skin Exam: normal color, warm, dry Eye Exam: PERRL, EOMI, eyes nml inspection Ears, Nose, Throat Exam: normal ENT inspection, pharynx normal, moist mucous membranes Neck Exam: normal inspection, non-tender, supple, full range of motion Respiratory Exam: wheezing, No respiratory distress Cardiovascular Exam: regular rate/rhythm, normal heart sounds Gastrointestinal/Abdomen Exam: soft, No tenderness, No mass Extremity Exam: normal inspection, normal range of motion Back Exam: normal inspection, normal range of motion, No CVA tenderness, No vertebral tenderness Male Genitalia Exam: deferred Rectal Exam: deferred Objective Data Vital Signs: Vital Signs - 24 hr Temp Pulse Resp BP BP Pulse Ox 07/18/24 08:00 97.3 F 85 18 133/86 91 L 07/18/24 07:31 104 H 24 91 L 11/19/24 04:00 97.5 F 106 H 22 132/87 90 L 07/18/24 01:14 106 H 22 96 07/18/24 00:00 96.0 F 101 H 22 127/92 93 L 07/17/24 20:00 97.0 F 118 H 24 113/70 92 L 07/17/24 19:40 102 H 16 94 L 07/17/24 16:00 97.9 F 103 H 16 148/103 95 07/17/24 13:10 101 H 22 94 L 07/17/24 11:30 97.4 F 94 H 16 149/94 94 L 07/17/24 11:03 93 L Pain Assessment - Last Documented Pain Intensity 7 Pain Scale Used 0-10 Pain Scale Intake and Output: Intake & Output 07/15/24 07/16/24 07/17/24 07/18/24 11:59 11:59 11:59 11:59 Intake Total 2590 4420 4115 2080 Output Total 2675 1750 3300 1400 Balance -85 2670 815 680 Weight 189.1 kg 191.3 kg 194.2 kg Lab Results: Lab Results-Last 24 Hours 07/18/24 07/18/24 07/18/24 Range/Units 04:00 05:00 05:00 WBC 6.6 (4.23-9.07) x10^3/uL RBC 5.39 (4.63-6.08) x10^6/uL Hgb 16.1 (13.7-17.5) g/dL Hct 50.3 (40.1-51.0) % MCV 93.3 H (79.0-92.2) fL MCH 29.9 (25.7-32.2) pg MCHC 32.0 L (32.3-36.5) g/dL RDW 16.0 H (11.6-14.4) % Plt Count 67 L (163-337) x10^3/uL MPV 11.6 (9.4-12.4) fL Gran % 86.0 H (34.0-67.9) % Immature Gran % (Auto) 1.2 H (0.001-0.429) % Nucleat RBC Rel Count 0.0 (0.00-0.2) % Eos # (Auto) 0 L (0.04-0.54) x10^3/uL Immature Gran # (Auto) 0.08 H (0.001-0.031) x10^3u/L Absolute Lymphs (auto) 0.41 L (1.32-3.57) x10^3/uL Absolute Monos (auto) 0.42 (0.30-0.82) x10^3/uL Absolute Nucleated RBC 0.00 (0.00-0.012) x10^3u/L Lymphocytes % 6.2 L (21.8-53.1) % Monocytes % 6.4 (5.3-12.2) % Eosinophils % 0.0 L (0.8-7.0) % Basophils % 0.2 (0.2-1.2) % Absolute Granulocytes 5.68 H (1.78-5.38) x10^3/uL Basophils # 0.01 (0.01-0.08) x10^3/uL Sodium 138 (135-145) mmol/L Potassium 4.3 (3.5-5.1) mmol/L Chloride 99 (98-107) mmol/L Carbon Dioxide 36 H (22-30) mmol/L Anion Gap 7.2 (5-15) MEQ/L BUN 15 (9-20) mg/dL Creatinine 0.54 L (0.66-1.25) mg/dL Estimated GFR 117.7 ML/MIN Glucose 292 H (74-106) mg/dL Hemoglobin A1c (4.5-6.0) % Lactic Acid 2.3 H (0.4-2.0) Calcium 8.2 L (8.4-10.2) mg/dL Total Bilirubin 0.60 (0.2-1.3) mg/dL AST 50 (17-59) U/L ALT 54 H (0-50) U/L Alkaline Phosphatase 151 H (38-126) U/L Serum Total Protein 6.5 (6.3-8.2) g/dL Albumin 2.9 L (3.5-5.0) g/dL Slides for Path Review YES 07/18/24 Range/Units 05:00 WBC (4.23-9.07) x10^3/uL RBC (4.63-6.08) x10^6/uL Hgb (13.7-17.5) g/dL Hct (40.1-51.0) % MCV (79.0-92.2) fL MCH (25.7-32.2) pg MCHC (32.3-36.5) g/dL RDW (11.6-14.4) % Plt Count (163-337) x10^3/uL MPV (9.4-12.4) fL Gran % (34.0-67.9) % Immature Gran % (Auto) (0.001-0.429) % Nucleat RBC Rel Count (0.00-0.2) % Eos # (Auto) (0.04-0.54) x10^3/uL Immature Gran # (Auto) (0.001-0.031) x10^3u/L Absolute Lymphs (auto) (1.32-3.57) x10^3/uL Absolute Monos (auto) (0.30-0.82) x10^3/uL Absolute Nucleated RBC (0.00-0.012) x10^3u/L Lymphocytes % (21.8-53.1) % Monocytes % (5.3-12.2) % Eosinophils % (0.8-7.0) % Basophils % (0.2-1.2) % Absolute Granulocytes (1.78-5.38) x10^3/uL Basophils # (0.01-0.08) x10^3/uL Sodium (135-145) mmol/L Potassium (3.5-5.1) mmol/L Chloride (98-107) mmol/L Carbon Dioxide (22-30) mmol/L Anion Gap (5-15) MEQ/L BUN (9-20) mg/dL Creatinine (0.66-1.25) mg/dL Estimated GFR ML/MIN Glucose (74-106) mg/dL Hemoglobin A1c 5.88 (4.5-6.0) % Lactic Acid (0.4-2.0) Calcium (8.4-10.2) mg/dL Total Bilirubin (0.2-1.3) mg/dL AST (17-59) U/L ALT (0-50) U/L Alkaline Phosphatase (38-126) U/L Serum Total Protein (6.3-8.2) g/dL Albumin (3.5-5.0) g/dL Slides for Path Review Multi-Disciplinary Progress Notes: Multi-Disciplinary Progress Notes 07/18/24 08:54 Respiratory Note by Blanquita Mcfadden SPLIT NIGHT SLEEP STUDY SCHEDULED FOR July @ 930PM. Initialized on 07/18/24 08:54 - END OF NOTE 07/17/24 09:54 Case Management Note by Charmaine Barahona S/W PATIENT ABOUT PLANS FOR DC- HE STILL ANTICIPATES TO DC HOME TO HIS PLF WITH HIS MOTHER A CAREGIVER. PATIENT HAS 24 OXYGEN AVAILABLE AT HOME ALREADY. PATIENT DENIES ANY NEW NEEDS AT THIS TIME Initialized on 07/17/24 09:54 - END OF NOTE Assessment/Plan (1) COPD exacerbation Current Visit: No Status: Acute Code(s): J44.1 - CHRONIC OBSTRUCTIVE PULMONARY DISEASE W (ACUTE) EXACERBATION (2) Budding yeast detected Current Visit: Yes Status: Acute Code(s): B37.9 - CANDIDIASIS, UNSPECIFIED (3) Acute respiratory failure with hypoxia Current Visit: Yes Status: Acute Code(s): J96.01 - ACUTE RESPIRATORY FAILURE WITH HYPOXIA (4) Afib Current Visit: Yes Status: Chronic Code(s): I48.91 - UNSPECIFIED ATRIAL FIBRILLATION (5) CAD (coronary artery disease) Current Visit: Yes Status: Chronic Code(s): I25.10 - ATHSCL HEART DISEASE OF [place] CORONARY ARTERY W/O ANG PCTRS (6) CHF (congestive heart failure) Current Visit: Yes Status: Chronic Code(s): I50.9 - HEART FAILURE, UNSPECIFIED (7) Cirrhosis Current Visit: Yes Status: Chronic (8) Depression with anxiety Current Visit: Yes Status: Chronic Code(s): F41.8 - OTHER SPECIFIED ANXIETY DISORDERS (9) HTN (hypertension) Current Visit: Yes Status: Chronic Code(s): I10 - ESSENTIAL (PRIMARY) HYPERTENSION (10) Hypothyroid Current Visit: Yes Status: Chronic Code(s): E03.9 - HYPOTHYROIDISM, UNSPECIFIED (11) Morbid obesity Current Visit: No Status: Chronic Code(s): E66.01 - MORBID (SEVERE) OBESITY DUE TO EXCESS CALORIES (12) Thrombocytopenia Current Visit: No Status: Chronic (13) Vascular insufficiency Current Visit: Yes Status: Chronic Assessment & Plan: (1) COPD exacerbation Current Visit: No Status: Acute Assessment & Plan: - Baseline 2LNC - Sputum culture + for budding yeast- fluconazole - On Bipap at noc and now 5L oxymizer when awake. - RT to wean O2 - Pulm consulted- no new orders - Solumedrol 60mg q8H, DuoNeb, ceftriaxone, Advair - +flu shot/pneumococcal on discharge if appropriate - BC x2 negative - CBC, CMP reviewed - CXR X2 and CT chest reviewed 07/18 - RT to wean O2 - On 5L oxymizer - Pulm ordered OP sleep study - CBC, CMP reviewed - CO2 improving 36 - Continue treatment plan - Walk on unit with staff - TID- QID Code(s): J44.1 - CHRONIC OBSTRUCTIVE PULMONARY DISEASE W (ACUTE) EXACERBATION (2) Budding yeast detected Current Visit: Yes Status: Acute Assessment & Plan: - In sputum culture - Start Fluconazole 100mg PO daily as pt has several med interactions and Stage 4 liver failure. Code(s): B37.9 - CANDIDIASIS, UNSPECIFIED (3) Acute respiratory failure with hypoxia Current Visit: Yes Status: Acute Assessment & Plan: - see above plan for COPD exacerbation Code(s): J96.01 - ACUTE RESPIRATORY FAILURE WITH HYPOXIA (4) Afib Current Visit: Yes Status: Chronic Assessment & Plan: - Continue Eliquis/metoprolol - TSH reviewed - Tele - HR controlled 07/18 - HR low 100's today on monitor Code(s): I48.91 - UNSPECIFIED ATRIAL FIBRILLATION (5) CAD (coronary artery disease) Current Visit: Yes Status: Chronic Assessment & Plan: -Follows with Mateo Fierro -continue home meds -Denies chest pain -trops reviewed and WNL x 3 -BNP reviewed -No acute cardiopulmonary on chest CT Code(s): I25.10 - ATHSCL HEART DISEASE OF [place] CORONARY ARTERY W/O ANG PCTRS (6) CHF (congestive heart failure) Current Visit: Yes Status: Chronic Assessment & Plan: -No recent echo on file -does not appear to be in exacerbation -Lasix given in ED -BNP reviewed -No effusions/infiltrates noted on CT chest -Daily weights/elevate HOB -strict I&O -continue home meds - lasix IV x1 07/18 - Wt pending today - LA 2.3- likely 2:2 CHF- WBC WNL- no fluids gave as to not cause fluid overload Code(s): I50.9 - HEART FAILURE, UNSPECIFIED (7) Cirrhosis Current Visit: Yes Status: Chronic Assessment & Plan: -Follows with GI at [facility] Yu -continue Xifaxan/lactulose (8) Depression with anxiety Current Visit: Yes Status: Chronic Assessment & Plan: -continue Prozac/alprazolam - denies suicidal or homicidal ideation Code(s): F41.8 - OTHER SPECIFIED ANXIETY DISORDERS (9) HTN (hypertension) Current Visit: Yes Status: Chronic Assessment & Plan: -BP stable, continue home meds Code(s): I10 - ESSENTIAL (PRIMARY) HYPERTENSION (10) Hypothyroid Current Visit: Yes Status: Chronic Assessment & Plan: -continue levothyroxine -TSH reviewed and WNL Code(s): E03.9 - HYPOTHYROIDISM, UNSPECIFIED (11) Morbid obesity Current Visit: No Status: Chronic Assessment & Plan: -advised diet and exercise control Code(s): E66.01 - MORBID (SEVERE) OBESITY DUE TO EXCESS CALORIES (12) Thrombocytopenia Current Visit: No Status: Chronic Assessment & Plan: - Plt 65- trend- chronic - f/u with hematology at D/C - 2:2 Chronic liver disease and Eliquis 07/18 - Plt 67- trend (13) Vascular insufficiency Current Visit: Yes Status: Chronic Assessment & Plan: -chronic -no edema - reviewed recent doppler and arterial US performed in 2021 VTE: Eliquis PPI: Protonix Dispo: 1-2 days Code Status: Full Next of KIN: motherKimberli [phone] Code(s): I99.8 - OTHER DISORDER OF CIRCULATORY SYSTEM Code(s): I99.8 - OTHER DISORDER OF CIRCULATORY SYSTEM
[2024-07-18] MEDS: PATIENT OWN MEDICATION PO SCH (16:12)
[2024-07-18] MEDS: NORCO 5/325 MG PO PRN (16:19)
[2024-07-19 05:21] LABS: Absolute Neutrophil Ct (ANC) 5.99 x10^3/uL (1.78-5.38); BASOPHIL % 0.3 % (0.2-1.2); Basophil (Absolute #) 0.02 x10^3/uL (0.01-0.08); Eosinophil % 0.1 % (0.8-7.0); Eosinophil (Absolute #) 0.01 x10^3/uL (0.04-0.54); Hematocrit 49.7 % (40.1-51.0); Hemoglobin 16.1 g/dL (13.7-17.5); IMMATURE GRAN # 0.11 x10^3u/L (0.001-0.031); IMMATURE GRAN % 1.6 % (0.001-0.429); Lymphocyte (Absolute #) 0.31 x10^3/uL (1.32-3.57); Lymphocytes % 4.6 % (21.8-53.1); Mean Cell Volume 91.9 fL (79.0-92.2); Mean Corpuscular Hemoglobin 29.8 pg (25.7-32.2); Mean Corpuscular Hgb Concent. 32.4 g/dL (32.3-36.5); Mean Platelet Volume 10.6 fL (9.4-12.4); Monocyte (Absolute #) 0.34 x10^3/uL (0.30-0.82); Neutrophil % 88.4 % (34.0-67.9); Platelet Count 69 x10^3/uL (163-337); Red Blood Count 5.41 x10^6/uL (4.63-6.08); Red Cell Distribution Width 16.3 % (11.6-14.4); White Blood Count 6.8 x10^3/uL (4.23-9.07)
[2024-07-19 06:16] LABS: Slide Review 1 YES
[2024-07-19 06:41] LABS: ALBUMIN 2.9 g/dL (3.5-5.0); ANION GAP 8.2 MEQ/L (5-15); BILIRUBIN,TOTAL 0.8 mg/dL (0.2-1.3); Calcium 8.3 mg/dL (8.4-10.2); Creatinine 1 0.51 mg/dL (0.66-1.25); EST GLOMERULAR FILTRATION RATE 119.7 ML/MIN; Potassium 4.5 mmol/L (3.5-5.1); Total Protein 6.5 g/dL (6.3-8.2)
[2024-07-19] MEDS: PATIENT OWN MEDICATION IH SCH (07:21)
[2024-07-19] MEDS: HUMALOG SQ ONE (08:01)
--- NOTE | 2024-07-19 10:38 | PCM.DS ---
Discharge Summary Date of Admission: 07/12/24 19:15 Date of Discharge: 07/19/24 Admitting Physician: MARIAM HIDALGO MD Consults: Consults on Case 07/12/24 18:07 Consult Pulmonology ROUTINE Primary Care Provider: KETAN ECHEVARRIA Allergies Allergies nitrofurantoin [From Macrobid] Allergy (Verified 07/12/24 08:34) Rash adhesive tape Adverse Reaction (Verified 07/12/24 08:34) Hospital Summary - Hospital Course Hospital Course: 07/17/24 Mr. Alston is a 54 year old male with a pmhx of AFIB (Eliquis), COPD(2L at baseline), hypothyroidism, depression/anxiety, Stage 4 liver disease, cirrhosis, hepatitis, CAD, CHF, and hypertension. He presented to ED 07/12/24 with complaints of fever, wheezing, cough and shortness of breath. Patient reports that symptoms began last night. He states that he has been experiencing a productive cough with yellow sputum, sore throat, fever Tmax of 101.6, and pro gressive shortness of breath. At baseline he is on 2L of oxygen but was requiring 6L which prompted him to report to ED. He endorsed chronic RUQ pain and occasional nausea. Denies urinary frequency, dysuria, retention, or hematuria. Does state that he experiences nocturnal urinary incontinence. Of note he did quit smoking one week ago. Upon arrival to ED patient was tachycardic with spo2 at 88% on 5L, patient placed on 6L with spo2 at 92%. CT chest w/contrast negative for PE and acute cardiopulmonary processes. Lab findings remarkable for lactic acidosis, and hypomagnesemia. BNP elevated at 1680. COVID/FLU/RSV negative. Patient given 250ml fluid bolus, solumedrol, DuoNeb treatment, and lasix in ED. Admitted patient for COPD exacerbation. Patient now on BIPAP at night and 5L oxymizer during the day. Pulmonology to consult today. Sputum culture + for moderate budding yeast, fluconazole daily started. Pt continues to have wheezing throughout. Advised pt to try and sit up in chair and in bed rather than lay flat as his weight is putting pressure on his chest. Pt sat up in the chair this afternoon. He romaine CP, Abd pain, N/V/D. He reports a chronic headache and states he takes IBP at home for this with some relief. He takes Eliquis so this was not added at this time. 07/18/24 Pt sitting up in chair this AM eating breakfast. He states he is feeling better. Lung sounds have improved. He is now on 5L oxymizer.He was able to walk in the halls with staff yesterday. Per PT - they do not need to work with him since he did so well. Pt to walk TID- QID with staff. Per staff he has been urinating in he bed. Urged pt to try and get up and use the bathroom as well as sit up in man ir as he does at home. Encouraged pt to walk in halls with staff. Pt would be a good candidate for Pulm rehab- discussed with case management. No changes per Pulm consult. RT to wean O2 as tolerated. Continue IV antibiotics, steroids, duonebs, advair, and fluconazole. Pt denies CP, Abd pain, N/V/D. Pt c/o lower back pain, encouraged pt to sit up in chair. Offered heating pad and pt declined. Pt asking for strong narcotics such as Morphine or Nubain. Explained strong narcotics are not appropriate at this time as it may cause respiratory depression. Will continue with [place] for pain. 07/19/24 Pt sitting up in chair today. He is on baseline O2 of 2LNC. He continues to have wheezing but states he also has this. He feels he is ready to go home. Will d/c with antibiotocs and steriods. He will need to F/u with PCP and pulm OP. OP sleep study ordered by Pulm and set up by case management and RT. He denies CP, SOB, abd pain, N/V/D. - Vitals & Intake/Output Vital Signs: Vital Signs Temperature 97.7 F 07/19/24 08:00 Pulse Rate 106 H 07/19/24 08:00 Respiratory Rate 16 07/19/24 08:00 Blood Pressure 136/75 07/19/24 08:00 O2 Sat by Pulse Oximetry 92 L 07/19/24 09:09 Intake & Output: Intake & Output 07/16/24 07/17/24 07/18/24 07/19/24 11:59 11:59 11:59 11:59 Intake Total 4420 4115 2560 2400 Output Total 1750 3300 2000 2350 Balance 2670 815 041 50 Weight 191.3 kg 194.2 kg 194.9 kg - Lab Result Diagrams: 07/19/24 05:05 07/19/24 05:05 Lab Results-Last 24 Hrs: Lab Results-Last 24 Hours 07/19/24 07/19/24 Range/Units 05:05 05:05 WBC 6.8 (4.23-9.07) x10^3/uL RBC 5.41 (4.63-6.08) x10^6/uL Hgb 16.1 (13.7-17.5) g/dL Hct 49.7 (40.1-51.0) % MCV 91.9 (79.0-92.2) fL MCH 29.8 (25.7-32.2) pg MCHC 32.4 (32.3-36.5) g/dL RDW 16.3 H (11.6-14.4) % Plt Count 69 L (163-337) x10^3/uL MPV 10.6 (9.4-12.4) fL Gran % 88.4 H (34.0-67.9) % Immature Gran % (Auto) 1.6 H (0.001-0.429) % Nucleat RBC Rel Count 0.0 (0.00-0.2) % Eos # (Auto) 0.01 L (0.04-0.54) x10^3/uL Immature Gran # (Auto) 0.11 H (0.001-0.031) x10^3u/L Absolute Lymphs (auto) 0.31 L (1.32-3.57) x10^3/uL Absolute Monos (auto) 0.34 (0.30-0.82) x10^3/uL Absolute Nucleated RBC 0.00 (0.00-0.012) x10^3u/L Lymphocytes % 4.6 L (21.8-53.1) % Monocytes % 5.0 L (5.3-12.2) % Eosinophils % 0.1 L (0.8-7.0) % Basophils % 0.3 (0.2-1.2) % Absolute Granulocytes 5.99 H (1.78-5.38) x10^3/uL Basophils # 0.02 (0.01-0.08) x10^3/uL Sodium 137 (135-145) mmol/L Potassium 4.5 (3.5-5.1) mmol/L Chloride 98 (98-107) mmol/L Carbon Dioxide 35 H (22-30) mmol/L Anion Gap 8.2 (5-15) MEQ/L BUN 12 (9-20) mg/dL Creatinine 0.51 L (0.66-1.25) mg/dL Estimated GFR 119.7 ML/MIN Glucose 300 H (74-106) mg/dL Calcium 8.3 L (8.4-10.2) mg/dL Total Bilirubin 0.80 (0.2-1.3) mg/dL AST 58 (17-59) U/L ALT 68 H (0-50) U/L Alkaline Phosphatase 158 H (38-126) U/L Serum Total Protein 6.5 (6.3-8.2) g/dL Albumin 2.9 L (3.5-5.0) g/dL Slides for Path Review YES Micro Results-Entire Visit: Microbiology 07/12/24 09:15 Blood Culture - Final Blood 07/12/24 09:10 Blood Culture - Final Blood 07/12/24 10:45 Gram Stain - Final Sputum - Expectorant Sputum Culture - Final ORGANISMS ISOLATED ARE CONSISTENT WITH NORMAL RESP ALTHEA MODERATE GROWTH, NO PREDOMINANT ORGANISM - Procedures and Test Procedures and Tests throughout Hospitalization: Therapy Orders & Screens 07/12/24 08:42 Respiratory Therapy Assessment DAILY Comment: 07/12/24 14:46 EKG REPEAT IN AM Comment: Respiratory Therapy Consult ONCE Comment: Reason For Exam: 07/12/24 14:51 Oxygen Oxymask LPM 6 lpm Comment: Respiratory Therapy Assessment DAILY Comment: 07/12/24 15:29 Respiratory Therapy Consult ONCE Comment: Reason For Exam: Diagnosis: fever, cough, sob 07/12/24 20:17 BiPap/CPAP ROUTINE Comment: Diagnosis: fever, cough, sob 07/13/24 12:06 Incentive Spirometry UD Comment: Diagnosis: fever, cough, sob 07/17/24 07:37 Respiratory MDI BID Comment: Diagnosis: EXAC COPD, ACUTE RESP FX WITH HYPOXIA 07/17/24 07:38 PT Eval & Treat (MD Order) ONCE Reason for Eval:: home needs vs. rehab. Diagnosis: EXAC COPD, ACUTE RESP FX WITH HYPOXIA 07/18/24 07:45 RT Miscellaneous Order ROUTINE Comment: Physician Instructions: Reason For Exam: Wean O2 keep sat > 92% Diagnosis: EXAC COPD, ACUTE RESP FX WITH HYPOXIA 07/19/24 07:00 Respiratory MDI DAILY Comment: Diagnosis: EXAC COPD, ACUTE RESP FX WITH HYPOXIA Discharge Exam General Appearance: no apparent distress, alert, obese Neurologic Exam: alert, oriented x 3, cooperative, normal mood/affect, nml cerebellar function, sensation nml, No motor deficits Eye Exam: PERRL, EOMI, eyes nml inspection Ears, Nose, Throat Exam: normal ENT inspection, pharynx normal, moist mucous membranes Neck Exam: normal inspection, non-tender, supple, full range of motion Respiratory Exam: normal breath sounds, wheezing, No respiratory distress Cardiovascular Exam: regular rate/rhythm, normal heart sounds Gastrointestinal/Abdomen Exam: soft, No tenderness, No mass Male Genitalia Exam: deferred Rectal Exam: deferred Back Exam: normal inspection, normal range of motion, No CVA tenderness, No vertebral tenderness Extremity Exam: normal inspection, normal range of motion Skin Exam: normal color, warm, dry Final Diagnosis/Problem List - Final Discharge Diagnosis/Problem (1) COPD exacerbation Current Visit: No Status: Acute Code(s): J44.1 - CHRONIC OBSTRUCTIVE PULMONARY DISEASE W (ACUTE) EXACERBATION (2) Budding yeast detected Current Visit: Yes Status: Acute Code(s): B37.9 - CANDIDIASIS, UNSPECIFIED (3) Acute respiratory failure with hypoxia Current Visit: Yes Status: Acute Code(s): J96.01 - ACUTE RESPIRATORY FAILURE WITH HYPOXIA (4) Afib Current Visit: Yes Status: Chronic Code(s): I48.91 - UNSPECIFIED ATRIAL FIBRILLATION (5) CAD (coronary artery disease) Current Visit: Yes Status: Chronic Code(s): I25.10 - ATHSCL HEART DISEASE OF [place] CORONARY ARTERY W/O ANG PCTRS (6) CHF (congestive heart failure) Current Visit: Yes Status: Chronic Code(s): I50.9 - HEART FAILURE, UNSPECIFIED (7) Cirrhosis Current Visit: Yes Status: Chronic (8) Depression with anxiety Current Visit: Yes Status: Chronic Code(s): F41.8 - OTHER SPECIFIED ANXIETY DISORDERS (9) HTN (hypertension) Current Visit: Yes Status: Chronic Code(s): I10 - ESSENTIAL (PRIMARY) HYPERTENSION (10) Hypothyroid Current Visit: Yes Status: Chronic Code(s): E03.9 - HYPOTHYROIDISM, UNSPEC IFIED (11) Morbid obesity Current Visit: No Status: Chronic Code(s): E66.01 - MORBID (SEVERE) OBESITY DUE TO EXCESS CALORIES (12) Thrombocytopenia Current Visit: No Status: Chronic (13) Vascular insufficiency Current Visit: Yes Status: Chronic Assessment & Plan: (1) COPD exacerbation Current Visit: No Status: Acute Assessment & Plan: - Baseline 2LNC - Sputum culture + for budding yeast- fluconazole - On Bipap at noc and now 5L oxymizer when awake. - RT to wean O2 - Pulm consulted- no new orders - Solumedrol 60mg q8H, DuoNeb, ceftriaxone, Advair - +flu shot/pneumococcal on discharge if appropriate - BC x2 negative - CBC, CMP reviewed - CXR X2 and CT chest reviewed 07/18 - RT to wean O2 - On 5L oxymizer - Pulm ordered OP sleep study - CBC, CMP reviewed - CO2 improving 36 - Continue treatment plan - Walk on unit with staff - TID- QID 07/19 - On baseline O2 2LNC- O2 94% - CBC, CMP reviewed - Continued wheezing - will d/c with steroids, antibiotics, and breathing treatments - f/u with Pulm and PCP OP - Would benefit from pulm rehab OP - case management to make referral Code(s): J44.1 - CHRONIC OBSTRUCTIVE PULMONARY DISEASE W (ACUTE) EXACERBATION (2) Budding yeast detected Current Visit: Yes Status: Acute Assessment & Plan: - In sputum culture - Start Fluconazole 100mg PO daily as pt has several med interactions and Stage 4 liver failure. Code(s): B37.9 - CANDIDIASIS, UNSPECIFIED (3) Acute respiratory failure with hypoxia Current Visit: Yes Status: Acute Assessment & Plan: - see above plan for COPD exacerbation Code(s): J96.01 - ACUTE RESPIRATORY FAILURE WITH HYPOXIA (4) Afib Current Visit: Yes Status: Chronic Assessment & Plan: - Continue Eliquis/metoprolol - TSH reviewed - Tele - HR controlled 07/18 - HR low 100's today on monitor 07/17 - HR controlled Code(s): I48.91 - UNSPECIFIED ATRIAL FIBRILLATION (5) CAD (coronary artery disease) Current Visit: Yes Status: Chronic Assessment & Plan: -Follows with Mateo Fierro -continue home meds -Denies chest pain -trops reviewed and WNL x 3 -BNP reviewed -No acute cardiopulmonary on chest CT Code(s): I25.10 - ATHSCL HEART DISEASE OF [place] CORONARY ARTERY W/O ANG PCTRS (6) CHF (congestive heart failure) Current Visit: Yes Status: Chronic Assessment & Plan: -No recent echo on file -does not appear to be in exacerbation -Lasix given in ED -BNP reviewed -No effusions/infiltrates noted on CT chest -Daily weights/elevate HOB -strict I&O -continue home meds - lasix IV x1 07/18 - LA 2.3- likely 2:2 CHF- WBC WNL- no fluids gave as to not cause fluid overload Code(s): I50.9 - HEART FAILURE, UNSPECIFIED (7) Cirrhosis Current Visit: Yes Status: Chronic Assessment & Plan: -Follows with GI at Dr. Yu -continue Xifaxan/lactulose (8) Depression with anxiety Current Visit: Yes Status: Chronic Assessment & Plan: -continue Prozac/alprazolam - denies suicidal or homicidal ideation Code(s): F41.8 - OTHER SPECIFIED ANXIETY DISORDERS (9) HTN (hypertension) Current Visit: Yes Status: Chronic Assessment & Plan: -BP stable, continue home meds Code(s): I10 - ESSENTIAL (PRIMARY) HYPERTENSION (10) Hypothyroid Current Visit: Yes Status: Chronic Assessment & Plan: -continue levothyroxine -TSH reviewed and WNL Code(s): E03.9 - HYPOTHYROIDISM, UNSPECIFIED (11) Morbid obesity Current Visit: No Status: Chronic Assessment & Plan: -advised diet and exercise control Code(s): E66.01 - MORBID (SEVERE) OBESITY DUE TO EXCESS CALORIES (12) Thrombocytopenia Current Visit: No Status: Chronic Assessment & Plan: - Plt 65- trend- chronic - f/u with hematology at [facility] - 2:2 Chronic liver disease and Eliquis 07/18 - Plt 67- trend (13) Vascular insufficiency Current Visit: Yes Status: Chronic Assessment & Plan: -chronic -no edema - reviewed recent doppler and arterial US performed in 2021 Code(s): I99.8 - OTHER DISORDER OF CIRCULATORY SYSTEM - Discharge Discharge Date: 07/19/24 Disposition: Home, Self-Care Condition: Fair Prescriptions: New Fluconazole 100 mg [Diflucan 100 MG] 100 mg PO DAILY 7 Days #7 tablet Continue Rifaximin [Xifaxan] 550 mg PO BID 30 Days #60 tablet Apixaban [Eliquis] 5 mg PO BID #60 tablet Metoprolol Tartrate 50 mg [Lopressor 50 MG] 100 mg PO BID Gabapentin 600 mg PO TID Levothyroxine Sodium 175 mcg PO DAILY Ropinirole HCl 0.5 mg [Requip 0.5 MG] 0.5 mg PO QHS Hydroxyzine HCl 25 mg [Atarax 25 mg] 25 mg PO TID PRN PRN #45 tablet PRN Reason: Itching Trazodone HCl 100 mg PO HS Quetiapine Fumarate [Seroquel] 50 mg PO HS ALPRAZolam [Alprazolam] 0.5 mg PO TID PRN PRN Reason: Anxiety Fluoxetine HCl 20 mg [Prozac 20 MG] 40 mg PO HS Outpatient Orders: Sleep Study Time Frame: 08/15/24, Facility: [facility], Location: RESPIRATORY THERAPY Additional Instructions: YOU WILL COME TO [facility] ON WednesdayJuly AT 9:30 PM FOR SLEEP STUDY TESTING. REFERRAL SENT TO [facility]. THEY WILL CALL YOU TO ARRANGE A TIME TO COME SEE YOU. THEIR PHONE NUMBER IS [phone] IF YOU NEED ANYTHING BEFORE THEIR FIRST VISIT Follow up with: KETAN ECHEVARRIA [Primary Care Provider] - 07/31/24 10:00 am SUMIT SCHULZ [ACTIVE STAFF] - 07/31/24 3:45 pm (AT [facility])
[2024-07-19 16:14] VITALS: BP 121/85; PULSE 108; RESP 16; TEMP 97.7; O2SAT 92
--- NOTE | 2024-07-21 11:34 | CONS ---
REASON FOR CONSULTATION: Evaluation of shortness of breath. HISTORY: The patient is a 54-year-old male who has been hospitalized at [facility] on 07/12 with complaints of shortness of breath. The patient is noted to have significant bronchospasm. He has been treated with IV antibiotics, steroids, bronchodilators with some clinical improvement. The patient has continued to experience shortness of breath and wheezing due to which a Pulmonary consultation is requested. The patient reportedly has been sick for over 10 years. He has been on oxygen for the last 2 to 3 years at home and requires usually 2L at a time. His effort tolerance has been significantly reduced as a combination of cardiopulmonary problems as well as his body habitus. He does report previous hospitalizations due to COPD exacerbation and pneumonias. 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 During his stay, he has been tried on noninvasive ventilation and does report that he is able to breathe better. However, he will need to be qualified for noninvasive ventilator at home. The patient has a chest x-ray and CT chest. I reviewed both. He is maintained on anticoagulation for atrial fibrillation. PAST MEDICAL HISTORY: As above. PAST SURGICAL HISTORY: No recent surgeries. HOME MEDICATIONS: Current medications reviewed. ALLERGIES: Reviewed. PERSONAL AND SOCIAL HISTORY: The patient had been a smoker up until this admission. He lives with his parents who are his caregivers. PHYSICAL EXAMINATION: GENERAL: This is a middle-aged male who appears fairly comfortable, able to carry on a conversation. VITAL SIGNS: Noted. HEENT: Normocephalic. He is edentulous. NECK: Supple. CARDIOVASCULAR: First and second heart sounds to be normal, regular, rhythmic. RESPIRATORY: Diminished breath sounds. Bilateral rhonchi heard. ABDOMEN: Obese. EXTREMITIES: Lower extremities show chronic dermatitis changes. LABORATORY DATA AND TESTS: Lab, x-rays, radiology, tests were all reviewed. ASSESSMENT: 1) This is a 54-year-old male admitted with COPD acute exacerbation, clinically improving gradually. 2) Acute on chronic hypoxic respiratory failure. 3) Body habitus suggestive of obstructive sleep apnea. 4) History of atrial fibrillation, on anticoagulation. 5) History of hypertension and comorbidities listed above. RECOMMENDATIONS: 1) The patient still has significant bronchospasm. 2) He would benefit from using Trelegy, which he uses at home, and was advised to have his family bring it from home so he can use that instead of Advair. 3) Gradual steroid taper. 4) Continue physical therapy. Given he is requiring longer than expected time for recovery, I believe he would benefit from swing bed. I have also talked to Respiratory Therapy that upon discharge from swing bed, if possible, a polysomnography can be performed as a split night the same night so he possibly can get noninvasive ventilation at home. 5) I have discussed with him need for complete abstinence from smoking. I would be glad to follow up with him in outpatient setting. Other recommendations awaiting clinical improvement. Thank you for allowing me to participate in the care of this patient.
== END 2024-07-19 17:02 | disposition home health service (06) | DRG 190 ==
LOC: ED 08:23 → MED SURG 14:40 → OBSVTOIN 19:15
PROVIDERS: ADMIT Internal Medicine; ATTEND Internal Medicine
DX: J44.1 Chronic obstructive pulmonary disease with (acute) exacerbation (principal); J96.01 Acute respiratory failure with hypoxia; B37.9 Candidiasis, unspecified; I48.91 Unspecified atrial fibrillation; I25.10 Atherosclerotic heart disease of native coronary artery without angina pectoris; I11.0 Hypertensive heart disease with heart failure; I50.9 Heart failure, unspecified; K74.60 Unspecified cirrhosis of liver; F41.8 Other specified anxiety disorders; E03.9 Hypothyroidism, unspecified; E66.01 Morbid (severe) obesity due to excess calories; D69.6 Thrombocytopenia, unspecified; I99.8 Other disorder of circulatory system; R32 Unspecified urinary incontinence; Z79.01 Long term (current) use of anticoagulants; Z79.899 Other long term (current) drug therapy; Z99.81 Dependence on supplemental oxygen; Z87.891 Personal history of nicotine dependence
CPT/HCPCS: 0241U; 36000; 36415; 36600; 71045; 71260; 80053; 80307; 81001; 82375; 82803; 83036; 83605; 83735; 83880; 84145; 84443; 84484; 85025; 87040; 87070; 93005; 93041; 93268; 94002; 94003; 94640; 94760; 94762; 96374; 96375; 97161; 99291; Q3014; 99285; J0456; J0696; J1817; J1940; J2405; J2919; A9270-GY; J3475

== ENCOUNTER 2024-07-22 02:33 | Emergency (ER) | payer MEDICARE ==
[2024-07-22 02:54] VITALS: TEMP 98.6
--- NOTE | 2024-07-22 03:00 | ERPHSYRPT ---
- History of Present Illness Time Seen by Provider: 07/22/24 02:58 Source: patient, family Exam Limitations: no limitations Patient Subjective Stated Complaint: c/o of post-fall right knee pain and left- lower back pain Triage Nursing Assessment: Patient brought into ED by ambulance with c/o post- fall right knee injury and left lower back pain. Patient was at home, stood up from chair, and tripped over rug. Patient hit head on end-table but denies LOC, AxOx3, no lacerations or deformities noted. Patient has right knee swelling and bruising present. no deformities noted on left lower back. Patient is on 4L per nasal cannula, slightly tachycardic, skin w/n/d, gait unassessed but patient is reported non-weightbearing to the right knee per EMS, pt dosn't appear to be in any distress at this time. Physician History: This is a morbidly obese 54-year-old white male patient who was brought to the emergency department by the thread drawer service secondary to a fall that occurred at his home prior to arrival. Patient got up from a chair and accidentally tripped over a rug hitting his head, right knee and lower back. He did not lose consciousness. However the patient does have atrial fibrillation and is on Eliquis. Patiently was recently discharged from the hospital for inpatient management of pneumonia and congestive heart failure. Patient is chronically on 4 L oxygen via nasal cannula. Patient has a history of CHF, coronary disease, hypertension, asthma, COPD, hypothyroidism, osteoarthritis, hepatitis/cirrhosis, anxiety, bipolar disorder. Occurred: just prior to arrival Reason for Fall: tripped Injuries/Pain Location: head, back, lower extremity (Right knee), lower Loss of Consciousness: no loss of consciousness Quality: aching Severity of Pain-Max: moderate Severity of Pain-Current: moderate Modifying Factors: Improves With: movement Associated Symptoms (Fall): back pain, extremity injury (Right knee pain), No confusion, No chest pain Allergies/Adverse Reactions: nitrofurantoin [From Macrobid] Allergy (Verified 07/22/24 02:54) Rash adhesive tape Adverse Reaction (Verified 07/22/24 02:54) Home Medications: Gabapentin 600 mg PO TID 05/01/22 [History] Metoprolol Tartrate 50 mg [Lopressor 50 MG] 100 mg PO BID 05/01/22 [History] Levothyroxine Sodium 175 mcg PO DAILY 08/11/22 [History] Ropinirole HCl 0.5 mg [Requip 0.5 MG] 0.5 mg PO QHS 08/11/22 [History] ALPRAZolam [Alprazolam] 0.5 mg PO TID PRN 07/12/24 [History] Fluoxetine HCl 20 mg [Prozac 20 MG] 40 mg PO HS 07/12/24 [History] Quetiapine Fumarate [Seroquel] 50 mg PO HS 07/12/24 [History] Trazodone HCl 100 mg PO HS 07/12/24 [History] Hx Tetanus, Diphtheria Vaccination/Date Given: Yes Hx Influenza Vaccination/Date Given: No Hx Pneumococcal Vaccination/Date Given: No Travel Risk - International Travel Have you traveled outside of the country in past 3 weeks: No - Emerging Infectious Disease Are you exhibiting symptoms associated with any current EIDs: No Symptoms: Cough: New Onset, Fever, Shortness of Breath - Review of Systems Constitutional: No Symptoms Eyes: No Symptoms Ears, Nose, & Throat: No Symptoms Respiratory: No Symptoms Cardiac: No Symptoms Abdominal/Gastrointestinal: No Symptoms Genitourinary Symptoms: No Symptoms Musculoskeletal: Back Pain (Lower), Fall, Injury (Patient hit head, right knee and lower back) Skin: No Symptoms Neurological: No Symptoms Psychological: No Symptoms Endocrine: No Symptoms Hematologic/Lymphatic: No Symptoms Immunological/Allergic: No Symptoms All Other Systems: Reviewed and Negative - Past Medical History Pertinent Past Medical History: Yes Neurological History: No Pertinent History ENT History: No Pertinent History Cardiac History: Arrhythmia, Congestive Heart Failure, Coronary Artery Disease, Hypertension Respiratory History: Asthma, Bronchitis, CHF, COPD, Pneumonia Endocrine Medical History: Hypothyroidism Musculoskeletal History: Osteoarthritis GI Medical History: Hepatitis, Cirrhosis History: No Pertinent History Psycho-Social History: Anxiety, Bipolar, Depression Male Reproductive Disorders: No Pertinent History Other Medical History: hepatitis A, B, C according to pt report. - Past Surgical History Past Surgical History: Yes Neuro Surgical History: No Pertinent History Cardiac: Cardiac Catheterization Respiratory: No Pertinent History Gastrointestinal: Cholecystectomy Genitourinary: No Pertinent History Musculoskeletal: Orthopedic Surgery Male Surgical History: No Pertinent History Other Surgical History: right knee arthroscopy. heart cath appx 5 years ago. Significant Family History: heart disease (Dad), cancer (mom- breast uterine) - Social History Smoking Status: Current every day smoker How long have you smoked: 40 Exposure to second hand smoke: No Drug Use: none Patient Lives Alone: No - Social Determinants of Health Will the patient participate in the screening: Yes Do you worry about a steady place to live?: No Do you have any problems with any of the following?: No known problems In the past 12 months,have you had to go without utilities?: No Transportation Issues: No Has anyone in your support network made you feel unsafe?: No Have you or anyone in your house had to go without enough: No - Nursing Vital Signs Nursing Vital Signs: Initial Vital Signs Temperature 98.6 F 07/22/24 02:36 Pulse Rate 82 07/22/24 02:36 Respiratory Rate 19 07/22/24 02:36 Blood Pressure 118/91 07/22/24 02:36 O2 Sat by Pulse Oximetry 92 L 07/22/24 02:36 Pain Scale Pain Intensity 10 - E[place] Coma Score Best Eye Response (Eolia): (4) open spontaneously Best Verbal Response (Iam): (5) oriented Best Motor Response (Iam): (6) obeys commands Iam Total: 15 - Physical Exam General Appearance: no apparent distress, alert, obese Head Injury: no evidence of injury Eye Exam: PERRL/EOMI, eyes nml inspection ENT Exam: airway nml, nml ext.inspection Neck Exam: supple, trachea midline, full range of motion, normal alignment, normal inspection Respiratory/Chest Exam: normal breath sounds, No chest tenderness, No respirator y distress, No ecchymosis, No crepitus Cardiovascular Exam: normal heart sounds, regular rate/rhythm Gastrointestinal Exam: No tenderness Rectal Exam: not done Back Exam: normal inspection, normal range of motion, No CVA tenderness, No vertebral tenderness Extremity Exam: normal range of motion, pelvis stable, other (Bilateral lower leg chronic venous stasis dermatitis/disease) Neurologic Exam: alert, oriented x 3, cooperative, investment banking analyst II-XII nml as tested, sensation nml Skin Exam: normal color, warm, dry SpO2 Interpretation: borderline oxygenation SpO2: 92 O2 Delivery: Nasal Cannula - Course Nursing assessment & vital signs reviewed: Yes Ordered Tests: Active Orders 24 hr Category Date Time Status HEAD WITHOUT CONTRAST [CT] Stat Exams 07/22/24 03:00 Completed KNEE (3 VIEWS) Stat Exams 07/22/24 03:01 Completed LUMBAR LIMITED (2 OR 3 VIEWS) Stat Exams 07/22/24 03:01 Completed Medication Summary Discontinued Medications Generic Name Dose Route Start Last Admin Trade Name Lonnie PRN Reason Stop Dose Admin Hydrocodone Bitart/Acetaminophen 1 tab 07/22/24 05:01 07/22/24 05:04 Hydrocodone/Apap 5/325 1 Tab Tablet PO 07/22/24 05:02 1 tab STAT ONE Administration Hydrocodone Bitart/Acetaminophen Confirm 07/22/24 05:04 Hydrocodone/Apap 5/325 1 Tab Tablet Administered 07/22/24 05:05 Dose 1 tab .ROUTE .STK-MED ONE - Progress Progress: improved, pain not gone completely Progress Note: 07/22/24 05:19 My medical decision making and the assignment of low complexity to this patient's medical issue today is based on review of the patient's past medical history, review the patient's medication list, review of the patient's drug allergy list, history present illness and physical findings on examination. The workup in this patient includes CT scan of the patient's head, x-ray of the right knee and x-ray of the lumbar spine. Differential diagnosis includes was not limited to acute fracture/subluxation of the spine, back strain, right knee acute fracture or dislocation, contusion right knee, acute intracranial abnormality, skull fracture Counseled pt/family regarding: diagnosis, need for follow-up, rad results Medical Desision Making - Independent Historian Additional History obtained from: Assembly Instructions Writer/EMT - External Record(s) Reviewed Records reviewed as a part of evaluation & management: Inpatient - Diagnostic Testing Diagnostic test were ordered, analyzed, and reviewed by me: Yes Radiological Interpretation: Reviewed by me, Teleradiologist Report - Risk of complications Low Risk: Low risk of morbidity from additional dx testing or treatment - Departure Departure Disposition: Home Clinical Impression: Fall with no significant injury, Low back strain, Right anterior knee pain Condition: Stable Critical Care Time: No Referrals: KETAN ECHEVARRIA [Primary Care Provider] - Follow up/PCP as directed Additional Instructions: Ice pack to tender areas 3-4 times a day for the next 3 to 4 days. May use Tylenol every 4 hours while awake (do not exceed 4 g in a 24-hour period) call your primary care provider on 07/24/2024, to arrange a follow-up appointment to be seen in the next 3 days.
--- NOTE | 2024-07-22 04:50 | XRAY ---
CLINICAL HISTORY: Fall injury COMPARISON: None. TECHNIQUE: Multiple axial images are obtained from the skull base to the vertex without contrast. CT scan was performed according to ALARA (as low as reasonably achievable). FINDINGS: The brain shows normal morphology, attenuation, and volume for age. The dior-white matter differentiation is preserved. No evidence of space occupying lesion, hemorrhage, edema, mass effect, midline shift, extra axial collection, or hydrocephalus is noted. Ventricles, sulci, and basal cisterns are symmetric and normal in size and configuration. Mild collection with air fluid level is noted in the left maxillary sinus, suggestive of acute sinusitis. Rest of the visualized paranasal sinuses and mastoid air cells are well aerated. Orbital contents are within normal limits. Bony structures are intact. IMPRESSION: 1. No evidence of acute intracranial abnormality is demonstrated. 2. Mild left acute maxillary sinusitis. Electronically Signed by: Bert Roland MD. (07/22/2024 04:46:05 EST)
--- NOTE | 2024-07-22 04:51 | XRAY ---
CLINICAL HISTORY: Fall injury COMPARISON: None. TECHNIQUE: Radiograph of lumbar spine was acquired. FINDINGS: Terminal lumbar segment vertebra is labelled as L5. Vertebral bodies are normal in height. No acute fracture. Mild retrolisthesis of L2 over L3 vertebra is noted. Reduction in L2-L3, L4-L5 disc height is noted. No lytic or blastic lesions identified. Marginal osteophytes, endplate sclerosis are noted at multiple levels. The soft tissues are grossly unremarkable. IMPRESSION: 1. No acute fracture detected. 2. Mild retrolisthesis of L2 over L3 vertebra is noted. 3. Reduction in L2-L3, L4-L5 disc height is noted. 4. Marginal osteophytes, endplate sclerosis are noted at multiple levels. Electronically Signed by: Bert Roland MD. (07/22/2024 04:47:38 EST)
--- NOTE | 2024-07-22 04:53 | XRAY ---
CLINICAL HISTORY: Fall injury COMPARISON: None. TECHNIQUE: Radiograph of knee was acquired. FINDINGS: Periarticular osteopenia is noted. There is no evidence of acute fracture, dislocation or osseous lesion. Marginal osteophytes are noted from distal femur, proximal tibia and patella. Reduction the tricompartment joint spaces noted. Subchondral sclerosis and erosions are noted. Moderate enlargement of the suprapatellar bursa is noted, possible joint effusions / bursitis. IMPRESSION: 1. No acute osseous abnormality. 2. Osteoarthritic changes involving the knee joint as described above. 3. Moderate enlargement of the suprapatellar bursa is noted, possible joint effusion / bursitis. 4. Periarticular osteopenia is noted. Electronically Signed by: Bert Roland MD. (07/22/2024 04:48:56 EST)
[2024-07-22] MEDS: NORCO 5/325 MG PO ONE ×2 (05:04→05:37)
[2024-07-22] MEDS ORDERED: NORCO 5/325 MG ONE ×2 (05:04→05:36)
[2024-07-22 06:01] VITALS: RESP 18; O2SAT 95
[2024-07-22 06:02] VITALS: BP 141/115; PULSE 67
== END 2024-07-22 06:23 | disposition home or self-care (01) ==
LOC: ED 02:33
DX: S39.012A Strain of muscle, fascia and tendon of lower back, initial encounter (principal); W01.10XA Fall on same level from slipping, tripping and stumbling with subsequent striking against unspecified object, initial encounter; M25.561 Pain in right knee; R51.9 Headache, unspecified; I11.0 Hypertensive heart disease with heart failure; I50.9 Heart failure, unspecified; Z79.899 Other long term (current) drug therapy; Z99.81 Dependence on supplemental oxygen; Z72.0 Tobacco use
CPT/HCPCS: 70450; 72100; 73562; 99283; 99284; A9270-GY

== ENCOUNTER 2024-09-21 17:28 | Inpatient (IN) | payer MEDICARE ==
[2024-09-21] MEDS ORDERED: CARDIZEM DRIP 100 MG/100 ML D5W 100 ML IV PRN (17:36)
--- NOTE | 2024-09-21 17:41 | ERPHSYRPT ---
- History of Present Illness Time Seen by Provider: 09/21/24 17:35 Source: patient, EMS Exam Limitations: clinical condition Physician History: 54-year-old morbidly obese male with history of chronic respiratory failure secondary to COPD on 4 L oxygen, cirrhosis, hypertension, hypothyroidism, atrial fibrillation on Eliquis is brought in the ER by EMS with increasing shortness of breath since yesterday. Patient also took a fall yesterday with injury to right anterior chest wall. Patient oxygen saturation was in mid 80s on EMS arrival on room air, placed on nonrebreather and is brought in the ER with saturation in low 90s. Patient is tachypneic and tachycardic and was found to be in A-fib RVR, given 15 mg IV Cardizem en route and currently heart rate in 120s. Patient reports increasing shortness of breath since yesterday. Not a good historian and history is limited. He also has a fever of 102.5. Allergies/Adverse Reactions: nitrofurantoin [From Macrobid] Allergy (Verified 09/21/24 18:46) Rash adhesive tape Adverse Reaction (Verified 09/21/24 18:46) Home Medications: Gabapentin 600 mg PO TID 05/01/22 [History] Metoprolol Tartrate 50 mg [Lopressor 50 MG] 100 mg PO BID 05/01/22 [Histor y] Levothyroxine Sodium 175 mcg PO DAILY 08/11/22 [History] Ropinirole HCl 0.5 mg [Requip 0.5 MG] 0.5 mg PO QHS 08/11/22 [History] ALPRAZolam [Alprazolam] 0.5 mg PO TID PRN 07/12/24 [History] Fluoxetine HCl 20 mg [Prozac 20 MG] 40 mg PO HS 07/12/24 [History] Quetiapine Fumarate [Seroquel] 50 mg PO HS 07/12/24 [History] Trazodone HCl 100 mg PO HS 07/12/24 [History] Hx Tetanus, Diphtheria Vaccination/Date Given: Yes Hx Influenza Vaccination/Date Given: No Hx Pneumococcal Vaccination/Date Given: No Travel Risk - Emerging Infectious Disease Are you exhibiting symptoms associated with any current EIDs: No Symptoms: Cough: New Onset, Fever, Shortness of Breath - Review of Systems Constitutional: Fever Respiratory: Cough, Dyspnea All Other Systems: Unable due to condition - Past Medical History Pertinent Past Medical History: Yes Neurological History: No Pertinent History ENT History: No Pertinent History Cardiac History: Arrhythmia, Congestive Heart Failure, Coronary Artery Disease, Hypertension Respiratory History: Asthma, Bronchitis, CHF, COPD, Pneumonia Endocrine Medical History: Hypothyroidism Musculoskeletal History: Osteoarthritis GI Medical History: Hepatitis, Cirrhosis History: No Pertinent History Psycho-Social History: Anxiety, Bipolar, Depression Male Reproductive Disorders: No Pertinent History Other Medical History: hepatitis A, B, C according to pt report. - Past Surgical History Past Surgical History: Yes Neuro Surgical History: No Pertinent History Cardiac: Cardiac Catheterization Respiratory: No Pertinent History Gastrointestinal: Cholecystectomy Genitourinary: No Pertinent History Musculoskeletal: Orthopedic Surgery Male Surgical History: No Pertinent History Other Surgical History: right knee arthroscopy. heart cath appx 5 years ago. Significant Family History: heart disease (Dad), cancer (mom- breast uterine) - Social History Smoking Status: Current every day smoker How long have you smoked: 40 Exposure to second hand smoke: No Drug Use: none Patient Lives Alone: No - Social Determinants of Health Will the patient participate in the screening: Yes Do you worry about a steady place to live?: No In the past 12 months,have you had to go without utilities?: No Transportation Issues: No Has anyone in your support network made you feel unsafe?: No Have you or anyone in your house had to go without enough: No - Nursing Vital Signs Nursing Vital Signs: Initial Vital Signs Temperature 102.7 F 09/21/24 17:31 Pulse Rate 133 H 09/21/24 17:31 Respiratory Rate 35 H 09/21/24 17:31 Blood Pressure 132/95 09/21/24 17:31 O2 Sat by Pulse Oximetry 82 L 09/21/24 17:31 Pain Scale Pain Intensity 0 - Physical Exam General Appearance: moderate distress, alert Eye Exam: PERRL/EOMI Ears, Nose, Throat Exam: hearing grossly normal, pharyngeal erythema Neck Exam: normal inspection, supple, full range of motion Respiratory Exam: respiratory distress, diminished breath sounds, crackles/rales, rhonchi, wheezing Cardiovascular/Chest Exam: normal heart sounds, tachycardia, irregular Abdominal/Gastrointestinal Exam: soft, normal bowel sounds Extremity Exam: non-tender Neurologic Exam: alert, oriented x 3, cooperative Skin Exam: normal color SpO2 Interpretation: O2 applied SpO2: 91 O2 Delivery: Non-rebreather - Course EKG Interpreted by Me: RATE ([id number]), A-fib, NORMAL AXIS, prolonged QT interval, Non-specific ST Changes Ordered Tests: Active Orders 24 hr Category Date Time Status EKG-ER Only STAT Care 09/21/24 17:35 Active Reyes [Catheter-Wayne Reyes] STAT Care 09/21/24 17:42 Active IV Insertion STAT Care 09/21/24 17:35 Active CHEST 1 VIEW (PORTABLE) Stat Exams 09/21/24 17:33 Taken ARTERIAL BLOOD GASES Stat Lab 09/21/24 17:45 Completed BLOOD CULTURE Stat Lab 09/21/24 17:35 Received CBC W DIFF Stat Lab 09/21/24 18:10 Completed CMP Stat Lab 09/21/24 18:17 Completed Lactic Acid Stat Lab 09/21/24 17:45 Completed Lactic Acid Stat Lab 09/21/24 19:54 Completed MAGNESIUM Stat Lab 09/21/24 18:17 Completed NT PRO BNPII Stat Lab 09/21/24 18:17 Completed PROCALCITONIN Stat Lab 09/21/24 18:17 Completed TROPONIN Q4H Lab 09/21/24 18:10 Completed TROPONIN Q4H Lab 09/21/24 21:35 Completed TROPONIN Q4H Lab 09/22/24 01:45 Ordered BiPap/CPAP STAT RT 09/21/24 18:15 Active Transfer Order Routine Transfer 09/21/24 Ordered Medication Summary Generic Name Dose Route Start Last Admin Trade Name Freq PRN Reason Stop Dose Admin Diltiazem HCl 100 mls @ 5 mls/hr 09/21/24 17:36 Cardizem Drip 100 Mg/100 Ml D5w IV 10/21/24 17:35 .Q20H PRN HEART RATE/ A-FIB Protocol 5 MG/HR Doxycycline Hyclate 100 mg/ 100 mls @ 100 mls/hr 09/21/24 22:00 09/21/24 18:36 Dextrose IV 10/21/24 21:59 100 mls/hr Q12HT MENDEL Administration Sodium Chloride 1,000 mls @ 150 mls/hr 09/21/24 19:30 09/21/24 19:22 Sodium Chloride 0.9% 1000 Ml IV 10/21/24 19:29 150 mls/hr .Q6H40M MENDEL Administration Discontinued Medications Generic Name Dose Route Start Last Admin Trade Name Lonnie PRN Reason Stop Dose Admin Albuterol/Ipratropium 3 ml 09/21/24 17:35 09/21/24 17:58 Ipratropium/Albuterol Sulfate 3 Ml Ampul.Neb IH 09/21/24 17:36 3 ml STAT ONE Administration Albuterol/Ipratropium Confirm 09/21/24 17:55 Ipratropium/Albuterol Sulfate 3 Ml Ampul.Neb Administered 09/21/24 17:56 Dose 3 ml IH .STK-MED ONE Doxycycline Hyclate Confirm 09/21/24 18:27 Doxycycline Hyclate 100 Mg/Vial Injection Administered 09/21/24 18:28 Dose 100 mg IV .STK-MED ONE Piperacillin Sod/Tazobactam 100 mls @ 200 mls/hr 09/21/24 17:43 09/21/24 18:28 Sod 3.375 gm/ Sodium Chloride IV 09/21/24 18:12 200 mls/hr STAT ONE Administration Acetaminophen 1,000 mg in 100 mls @ 400 mls/hr 09/21/24 17:45 09/21/24 18:02 Ofirmev IV 09/21/24 17:59 400 mls/hr 1HRPRIOR ONE Administration Acetaminophen Confirm 09/21/24 17:44 Ofirmev Administered 09/21/24 17:45 Dose 100 mls @ ud IV .STK-MED ONE Sodium Chloride Confirm 09/21/24 17:58 Sodium Chloride 0.9% 1000 Ml Administered 09/21/24 17:59 Dose 1,000 mls @ ud .ROUTE .STK-MED ONE Dextrose Confirm 09/21/24 18:27 D5w 100ml Mini Bag 100 Ml Administered 09/21/24 18:28 Dose 100 mls @ ud IV .STK-MED ONE Sodium Chloride Confirm 09/21/24 18:27 Sodium Chloride 100ml Mini-Bag Plus Administered 09/21/24 18:28 Dose 100 mls @ ud IV .STK-MED ONE Lactulose 30 g 09/21/24 19:48 09/21/24 21:56 Lactulose 10 G/15 Ml Ml PO 09/21/24 19:49 30 g ONCE STA Administration Oseltamivir Phosphate 75 mg 09/21/24 19:14 09/21/24 19:23 Oseltamivir 75 Mg Cap PO 09/21/24 19:15 75 mg STAT ONE Administration Oseltamivir Phosphate Confirm 09/21/24 19:19 Oseltamivir 75 Mg Cap Administered 09/21/24 19:20 Dose 75 mg PO .STK-MED ONE Piperacillin Sod/Tazobactam Sod Confirm 09/21/24 18:27 Piperacillin/Tazobactam Sodium 3.375 Gm Vial Administered 09/21/24 18:28 Dose 3.375 gm IV .STK-MED ONE Lab/Rad Data: Laboratory Result Diagrams 09/21/24 18:10 09/21/24 18:17 Laboratory Results 09/21/24 09/21/24 09/21/24 Range/Units Unknown 21:35 20:31 WBC (4.23-9.07) x10^3/uL RBC (4.63-6.08) x10^6/uL Hgb (13.7-17.5) g/dL Hct (40.1-51.0) % MCV (79.0-92.2) fL MCH (25.7-32.2) pg MCHC (32.3-36.5) g/dL RDW (11.6-14.4) % Plt Count (163-337) x10^3/uL MPV (9.4-12.4) fL Gran % (34.0-67.9) % Immature Gran % (Auto) (0.001-0.429) % Nucleat RBC Rel Count (0.00-0.2) % Eos # (Auto) (0.04-0.54) x10^3/uL Immature Gran # (Auto) (0.001-0.031) x10^3u/L Absolute Lymphs (auto) (1.32-3.57) x10^3/uL Absolute Monos (auto) (0.30-0.82) x10^3/uL Absolute Nucleated RBC (0.00-0.012) x10^3u/L Lymphocytes % (21.8-53.1) % Monocytes % (5.3-12.2) % Eosinophils % (0.8-7.0) % Basophils % (0.2-1.2) % Absolute Granulocytes (1.78-5.38) x10^3/uL Basophils # (0.01-0.08) x10^3/uL Puncture Site pCO2 (35-45) mmHg pO2 (75-100) mmHg Base Excess (-2.0-2.0) O2 Saturation (94-100) g/dF ABG pH (7.35-7.45) ABG HCO3 (22-28) ABG O2 Sat (Measured) (95-100) % Gideon Test A-a Gradient a/A Ratio Hemoglobin Carboxyhemoglobin (0.0-6.9) % THgb Methemoglobin (1.4-1.5) % Potassium (3.5-5.1) POC O2 Flow Rate % Sodium (135-145) mmol/L Chloride (98-107) mmol/L Carbon Dioxide (23-27) mEq/L Anion Gap (5-15) MEQ/L BUN (9-20) mg/dL Creatinine (0.66-1.25) mg/dL Estimated GFR ML/MIN Glucose (74-106) mg/dL Lactic Acid (0.4-2.0) Calcium (8.4-10.2) mg/dL Magnesium (1.6-2.3) mg/dL Total Bilirubin (0.2-1.3) mg/dL AST (17-59) U/L ALT (0-50) U/L Alkaline Phosphatase (38-126) U/L Ammonia 51 H 51 H (9-30) umol/L Troponin I 0.042 H* (0.000-0.033) ng/mL NT-Pro-B Natriuret Pep (<300) pg/mL Serum Total Protein (6.3-8.2) g/dL Albumin (3.5-5.0) g/dL Procalcitonin (0.030-0.080) ng/mL Influenza Type A Ag (NEGATIVE) Influenza Type B Ag (NEGATIVE) RSV (PCR) (NEGATIVE) SARS-CoV-2 (PCR) (NEGATIVE) Slides for Path Review 09/21/24 09/21/24 09/21/24 Range/Units 19:54 18:17 18:17 WBC (4.23-9.07) x10^3/uL RBC (4.63-6.08) x10^6/uL Hgb (13.7-17.5) g/dL Hct (40.1-51.0) % MCV (79.0-92.2) fL MCH (25.7-32.2) pg MCHC (32.3-36.5) g/dL RDW (11.6-14.4) % Plt Count (163-337) x10^3/uL MPV (9.4-12.4) fL Gran % (34.0-67.9) % Immature Gran % (Auto) (0.001-0.429) % Nucleat RBC Rel Count (0.00-0.2) % Eos # (Auto) (0.04-0.54) x10^3/uL Immature Gran # (Auto) (0.001-0.031) x10^3u/L Absolute Lymphs (auto) (1.32-3.57) x10^3/uL Absolute Monos (auto) (0.30-0.82) x10^3/uL Absolute Nucleated RBC (0.00-0.012) x10^3u/L Lymphocytes % (21.8-53.1) % Monocytes % (5.3-12.2) % Eosinophils % (0.8-7.0) % Basophils % (0.2-1.2) % Absolute Granulocytes (1.78-5.38) x10^3/uL Basophils # (0.01-0.08) x10^3/uL Puncture Site pCO2 (35-45) mmHg pO2 (75-100) mmHg Base Excess (-2.0-2.0) O2 Saturation (94-100) g/dF ABG pH (7.35-7.45) ABG HCO3 (22-28) ABG O2 Sat (Measured) (95-100) % Gideon Test A-a Gradient a/A Ratio Hemoglobin Carboxyhemoglobin (0.0-6.9) % THgb Methemoglobin (1.4-1.5) % Potassium 3.3 L (3.5-5.1) POC O2 Flow Rate % Sodium 136 (135-145) mmol/L Chloride 106 (98-107) mmol/L Carbon Dioxide 28 (23-27) mEq/L Anion Gap 5.4 (5-15) MEQ/L BUN 8 L (9-20) mg/dL Creatinine 0.73 (0.66-1.25) mg/dL Estimated GFR 107.5 ML/MIN Glucose 167 H (74-106) mg/dL Lactic Acid 1.7 (0.4-2.0) Calcium 8.1 L (8.4-10.2) mg/dL Magnesium 1.7 (1.6-2.3) mg/dL Total Bilirubin 1.00 (0.2-1.3) mg/dL AST 65 H (17-59) U/L ALT 23 (0-50) U/L Alkaline Phosphatase 88 (38-126) U/L Ammonia (9-30) umol/L Troponin I (0.000-0.033) ng/mL NT-Pro-B Natriuret Pep 4710 (<300) pg/mL Serum Total Protein 7.2 (6.3-8.2) g/dL Albumin 3.4 L (3.5-5.0) g/dL Procalcitonin 0.350 H (0.030-0.080) ng/mL Influenza Type A Ag POSITIVE A (NEGATIVE) Influenza Type B Ag NEGATIVE (NEGATIVE) RSV (PCR) NEGATIVE (NEGATIVE) SARS-CoV-2 (PCR) NEGATIVE (NEGATIVE) Slides for Path Review 09/21/24 09/21/24 09/21/24 Range/Units 18:10 18:10 17:45 WBC 6.3 (4.23-9.07) x10^3/uL RBC 4.68 (4.63-6.08) x10^6/uL Hgb 14.2 (13.7-17.5) g/dL Hct 45.5 (40.1-51.0) % MCV 97.2 H (79.0-92.2) fL MCH 30.3 (25.7-32.2) pg MCHC 31.2 L (32.3-36.5) g/dL RDW 15.6 H (11.6-14.4) % Plt Count 68 L (163-337) x10^3/uL MPV 10.5 (9.4-12.4) fL Gran % 87.0 H (34.0-67.9) % Immature Gran % (Auto) 0.8 H (0.001-0.429) % Nucleat RBC Rel Count 0.0 (0.00-0.2) % Eos # (Auto) 0.01 L (0.04-0.54) x10^3/uL Immature Gran # (Auto) 0.05 H (0.001-0.031) x10^3u/L Absolute Lymphs (auto) 0.36 L (1.32-3.57) x10^3/uL Absolute Monos (auto) 0.36 (0.30-0.82) x10^3/uL Absolute Nucleated RBC 0.00 (0.00-0.012) x10^3u/L Lymphocytes % 5.7 L (21.8-53.1) % Monocytes % 5.7 (5.3-12.2) % Eosinophils % 0.2 L (0.8-7.0) % Basophils % 0.6 (0.2-1.2) % Absolute Granulocytes 5.47 H (1.78-5.38) x10^3/uL Basophils # 0.04 (0.01-0.08) x10^3/uL Puncture Site RIGHT RADIAL pCO2 64 H* (35-45) mmHg pO2 71 L (75-100) mmHg Base Excess 2.2 H (-2.0-2.0) O2 Saturation 91 L (94-100) g/dF ABG pH 7.29 L (7.35-7.45) ABG HCO3 30.8 H* (22-28) ABG O2 Sat (Measured) 95 (95-100) % Gideon Test YES A-a Gradient 562 a/A Ratio 0.11 Hemoglobin 14.8 Carboxyhemoglobin 2.7 (0.0-6.9) % THgb Methemoglobin 1.4 (1.4-1.5) % Potassium 3.3 L (3.5-5.1) POC O2 Flow Rate 100 % Sodium (135-145) mmol/L Chloride (98-107) mmol/L Carbon Dioxide 32 H (23-27) mEq/L Anion Gap (5-15) MEQ/L BUN (9-20) mg/dL Creatinine (0.66-1.25) mg/dL Estimated GFR ML/MIN Glucose (74-106) mg/dL Lactic Acid 2.3 H (0.4-2.0) Calcium (8.4-10.2) mg/dL Magnesium (1.6-2.3) mg/dL Total Bilirubin (0.2-1.3) mg/dL AST (17-59) U/L ALT (0-50) U/L Alkaline Phosphatase (38-126) U/L Ammonia (9-30) umol/L Troponin I 0.021 (0.000-0.033) ng/mL NT-Pro-B Natriuret Pep (<300) pg/mL Serum Total Protein (6.3-8.2) g/dL Albumin (3.5-5.0) g/dL Procalcitonin (0.030-0.080) ng/mL Influenza Type A Ag (NEGATIVE) Influenza Type B Ag (NEGATIVE) RSV (PCR) (NEGATIVE) SARS-CoV-2 (PCR) (NEGATIVE) Slides for Path Review YES - Progress Progress: improved Air Movement: fair Progress Note: 09/21/24 20:20 54-year-old with multiple medical problems is evaluated in the ER for worsening shortness of breath and a fever. Patient was in A-fib RVR on presentation, also had a temperature of 102. ABG showed pH of 7.29 and CO2 of 64 which I believe patient chronically lives around. He was on nonrebreather, placed on BiPAP, given neb treatment, patient is allergic to steroids. Chest x-ray showed bilateral airspace disease reviewed by me with pending official report. Patient is started on broad-spectrum a ntibiotics Zosyn and doxycycline. EKG is A-fib RVR with no ST elevations. Patient blood pressure was in 90s, given fluid bolus and currently in low 100s. Workup showed normal white count, lactate of 2.3, procalcitonin 0.3 and stable renal functions. Patient has positive influenza A and started on Tamiflu. On reevaluation he is feeling much improved and is not in any distress. Patient has elevated ammonia level and would be started on lactulose. I have ordered Cardizem but have not started yet because patient elevated heart rate/A-fib RVR I believe is secondary to sepsis related and will continue with gentle hydration as his heart rate is improved to low 100s. Will continue to hold off on it. I have shared the results of workup with patient and family and plan of admission which they understand and agree. Discussed with Dr. Merritt hospitalist on-call, reviewed history, workup and agreed with admission. Blood Culture(s) Obtained: Yes Antibiotics given: Yes Discussed with Dr.: Other (Dr. Merirtt) Will see patient in: hospital (full admit) Counseled pt/family regarding: lab results, diagnosis, need for follow-up, rad results Medical Desision Making - Independent Historian Additional History obtained from: Mother, Father, Investigative Agent/EMT - External Record(s) Reviewed Records reviewed as a part of evaluation & management: Discharge Summary, EMS - Discussion of managment Care discussed with:: hospitalist Reviewed:: Test results Agreed on:: Treatment plan, decision to admit Will see patient: in hospital - Diagnostic Testing Diagnostic test were ordered, analyzed, and reviewed by me: Yes Radiological Interpretation: Interpreted by me, Reviewed by me - Risk of complications The pt has a mod risk of morbidity or mortality based on: Need for prescription drug management The pt has a high risk of morbidity or mortality based on: Decision regarding hospitilization or escalation of hosp level of care - Departure Departure Disposition: In-patient Admission Clinical Impression: Acute on chronic hypoxic respiratory failure, Severe sepsis, Pneumonia, In fluenza A, Atrial fibrillation with RVR, Increased ammonia level Condition: Fair Critical Care Time: Yes Critical Care Time(excluding separately billable procedures): Critical 75-104 mins Referrals: KETAN ECHEVARRIA [Primary Care Provider] - Follow up/PCP as directed
[2024-09-21] MEDS ORDERED: OFIRMEV 100 ML IV ONE (17:44)
[2024-09-21 17:51] LABS: ARTERIAL BLOOD GAS PCO2 64 mmHg (35-45); ARTERIAL BLOOD GAS pH 7.29 (7.35-7.45)
[2024-09-21 17:52] LABS: A-aADO2 562; ABG HEMOGLOBIN 14.8; ABG POTASSIUM 3.3 (3.5-5.1); ARTERIAL BLD GAS O2 SATURATION 95 % (95-100); ARTERIAL BLOOD GAS BASE EXCESS 2.2 (-2.0-2.0); ARTERIAL BLOOD GAS FIO2 100 %; ARTERIAL BLOOD GAS PO2 71 mmHg (75-100); CARBON DIOXIDE 32 mEq/L (23-27); HCO3- 30.8 (22-28); Methhemoglobin 1.4 % (1.4-1.5); paO2 pAO1 0.11
[2024-09-21 17:53] LABS: ABG SITE RIGHT RADIAL; ALLEN TEST OK? YES; CARBOXYHEMOGLOBIN 2.7 % THgb (0.0-6.9); HGB O2 SAT 91 g/dF (94-100); Lactic Acid 2.3 (0.4-2.0)
[2024-09-21] MEDS ORDERED: DUONEB 0.5-3 MG/3 ml Neb IH ONE (17:55)
[2024-09-21] MEDS: DUONEB 0.5-3 MG/3 ml Neb IH ONE (17:58)
[2024-09-21] MEDS ORDERED: Sodium Chloride 0.9% 1000 ML 1,000 ML ONE ×2 (17:58→19:19)
[2024-09-21] MEDS: OFIRMEV 1,000 MG/100 ML ML IV ONE (18:02)
[2024-09-21 18:22] LABS: Absolute Neutrophil Ct (ANC) 5.47 x10^3/uL (1.78-5.38); BASOPHIL % 0.6 % (0.2-1.2); Basophil (Absolute #) 0.04 x10^3/uL (0.01-0.08); Eosinophil % 0.2 % (0.8-7.0); Eosinophil (Absolute #) 0.01 x10^3/uL (0.04-0.54); Hematocrit 45.5 % (40.1-51.0); Hemoglobin 14.2 g/dL (13.7-17.5); IMMATURE GRAN # 0.05 x10^3u/L (0.001-0.031); IMMATURE GRAN % 0.8 % (0.001-0.429); Lymphocyte (Absolute #) 0.36 x10^3/uL (1.32-3.57); Lymphocytes % 5.7 % (21.8-53.1); Mean Cell Volume 97.2 fL (79.0-92.2); Mean Corpuscular Hemoglobin 30.3 pg (25.7-32.2); Mean Corpuscular Hgb Concent. 31.2 g/dL (32.3-36.5); Mean Platelet Volume 10.5 fL (9.4-12.4); Monocyte (Absolute #) 0.36 x10^3/uL (0.30-0.82); Monocytes % 5.7 % (5.3-12.2); Platelet Count 68 x10^3/uL (163-337); Red Blood Count 4.68 x10^6/uL (4.63-6.08); Red Cell Distribution Width 15.6 % (11.6-14.4); White Blood Count 6.3 x10^3/uL (4.23-9.07)
[2024-09-21] MEDS ORDERED: VIBRAMYCIN 100 MG IV ONE (18:27)
[2024-09-21] MEDS ORDERED: D5w 100ML Mini Bag 100 ML 100 ML IV ONE (18:27)
[2024-09-21] MEDS ORDERED: PIPERACILLIN/TAZOBACTAM IV ONE (18:27)
[2024-09-21] MEDS ORDERED: Sodium Chloride 100ML MINI-BAG PLUS 100 ML IV ONE (18:27)
[2024-09-21] MEDS: PIPERACILLIN/TAZOBACTAM 3.375 GM in Sodium Chloride 100ML MINI-BAG PLUS 100 ML IV ONE (18:28)
[2024-09-21] MEDS: VIBRAMYCIN 100 MG*** 100 MG in Dextrose 5%/Water IV Soln. 100ML PLUS BAG 100 ML IV SCH (18:36)
[2024-09-21 18:56] LABS: INFLUENZA B NEGATIVE (NEGATIVE); RESPIRATORY SYNCTIAL VIRUS NEGATIVE (NEGATIVE); SARS-CoV-2 Xpert Express NEGATIVE (NEGATIVE)
[2024-09-21 18:57] LABS: INFLUENZA A POSITIVE (NEGATIVE)
[2024-09-21] MEDS ORDERED: Tamiflu 75MG Capsule PO ONE (19:19)
[2024-09-21] MEDS: Sodium Chloride 0.9% 1000 ML 1,000 ML IV SCH (19:22)
[2024-09-21] MEDS: Tamiflu 75MG Capsule PO ONE (19:23)
[2024-09-21 19:56] LABS: ALBUMIN 3.4 g/dL (3.5-5.0); ANION GAP 5.4 MEQ/L (5-15); Calcium 8.1 mg/dL (8.4-10.2); Creatinine 1 0.73 mg/dL (0.66-1.25); EST GLOMERULAR FILTRATION RATE 107.5 ML/MIN; MAGNESIUM 1.7 mg/dL (1.6-2.3); PROCALCITONIN 0.35 ng/mL (0.030-0.080); Potassium 3.3 mmol/L (3.5-5.1); Total Protein 7.2 g/dL (6.3-8.2)
[2024-09-21 20:10] LABS: Slide Review 1 YES
[2024-09-21] MEDS: Enulose 10 GM/15 ML PO STA (21:56)
--- NOTE | 2024-09-21 22:41 | PCM.HP ---
History of Present Illness - Chief Complaint Chief Complaint: Shortness of breath Date: 09/21/24 History of Present Illness: is a 54 year old male With past medical history significant for COPD on 2 L oxygen at home congestive heart failure unknown ejection fraction, coronary artery disease, cirrhosis ,hypertension, hypothyroidism, hyperlipidemia morbid obesity, anxiety, who just got discharged from hospital on 07/19 after remained admitted for COPD exacerbation, he was advised to follow-up with pulmonary and set up for outpatient sleep study. He came back with shortness of breath productive cough and fever for last couple of days. In the ER the ini tial blood pressure was 95/70 pulse was 103 respiratory rate 14 as well blood work of concern white cell count 6.3 hemoglobin 14.2 platelets 68. Sodium 136 potassium 3.3 chloride 106 bicarb 28 BUN 8 creatinine 0.73 lactic acid was running a bit high initial set of troponin was 0.021 procalcitonin 0.350. Tested positive for influenza A chest x-ray significant for infiltrates ABG showed pH 7.29 with pCO2 64. Patient started on BiPAP received antibiotics and getting admitting to ICU for close monitoring - Review of Systems All Other Systems: Reviewed and Negative Medications & Allergies Home Medications: Home Medication List Rifaximin [Xifaxan] 550 mg PO BID 30 Days #60 tablet 08/31/20 [Rx Confirmed 07/12/24] Apixaban [Eliquis] 5 mg PO BID #60 tablet 03/08/21 [Rx Confirmed 07/12/24] Gabapentin 600 mg PO TID 05/01/22 [History Confirmed 07/12/24] Metoprolol Tartrate 50 mg [Lopressor 50 MG] 100 mg PO BID 05/01/22 [History Confirmed 07/12/24] Levothyroxine Sodium 175 mcg PO DAILY 08/11/22 [History Confirmed 07/12/24] Ropinirole HCl 0.5 mg [Requip 0.5 MG] 0.5 mg PO QHS 08/11/22 [History Confirmed 07/12/24] Hydroxyzine HCl 25 mg [Atarax 25 mg] 25 mg PO TID PRN PRN #45 tablet 11/20/23 [Rx Confirmed 07/12/24] ALPRAZolam [Alprazolam] 0.5 mg PO TID PRN 07/12/24 [History Confirmed 07/12/24] Fluoxetine HCl 20 mg [Prozac 20 MG] 40 mg PO HS 07/12/24 [History Confirmed 07/12/24] Quetiapine Fumarate [Seroquel] 50 mg PO HS 07/12/24 [History Confirmed 07/12/24] Trazodone HCl 100 mg PO HS 07/12/24 [History Confirmed 07/12/24] Albuterol 2.5 mg/3 ml Neb [Proventil 2.5 mg/3 ml Neb] 2.5 mg IH Q6H PRN PRN 7 Days #25 unit 07/19/24 [Rx] Doxycycline Hyclate 100 mg [Vibramycin 100 MG] 100 mg PO BID 7 Days #14 tab 07/19/24 [Rx] Fluconazole 100 mg [Diflucan 100 MG] 100 mg PO DAILY 7 Days #7 tablet 07/19/24 [Rx] Prednisone 20 mg [Deltasone 20 mg] 20 mg PO BID 5 Days #10 tablet 07/19/24 [Rx] Allergies/Adverse Reactions: Allergies Allergy/AdvReac Type Severity Reaction Status Date / Time nitrofurantoin Allergy Rash Verified 09/21/24 18:46 [From Macrobid] adhesive tape AdvReac Verified 09/21/24 18:46 - Past Medical History Past Medical History: Yes Neurological History: No Pertinent History ENT History: No Pertinent History Cardiac History: Arrhythmia, Congestive Heart Failure, Coronary Artery Disease, Hypertension Respiratory History: Asthma, Bronchitis, CHF, COPD, Pneumonia Endocrine Medical History: Hypothyroidism Musculoskelatal History: Osteoarthritis GI Medical History: Hepatitis, Cirrhosis History: No Pertinent History Pyscho-Social History: Anxiety, Bipolar, Depression Male Reproductive Disorders: No Pertinent History Comment: hepatitis A, B, C according to pt report. - Past Surgical History Past Surgical History: Yes Neuro Surgical History: No Pertinent History Cardiac History: Cardiac Catheterization Respiratory Surgery: No Pertinent History GI Surgical History: Cholecystectomy Genitourinary Surgical Hx: No Pertinent History Musculskeletal Surgical Hx: Orthopedic Surgery Male Surgical History: No Pertinent History Other Surgical History: right knee arthroscopy. heart cath appx 5 years ago. Significant Family History: no pertinent family hx, heart disease (Dad), cancer (mom- breast uterine) - Social History Smoking Status: Current every day smoker How long have you smoked: 40 Exposure to second hand smoke: No Alcohol: None Drug Use: none - Social Determinants of Health Will the patient participate in the screening: Yes Do you worry about a steady place to live?: No Do you have any problems with any of the following?: No known problems In the past 12 months,have you had to go without utilities?: No Have you or anyone in your house had to go without enough: No Transportation Issues: No Has anyone in your support network made you feel unsafe?: No Does the patient want assistance with any of the above?: No - Physical Exam Vital Signs: Vital Signs - 24 hr Temp Pulse Resp BP BP Pulse Ox 09/21/24 22:10 107 H 22 121/91 94 L 09/21/24 22:01 112 H 24 125/79 94 L 09/21/24 21:50 103 H 39 H 99/68 90 L 09/21/24 21:40 94 H 22 104/78 09/21/24 21:30 103 H 14 95/60 09/21/24 21:20 103 H 24 96/59 09/21/24 21:10 100.4 F 97 H 21 102/65 94 L 09/21/24 20:50 93 H 20 95/59 92 L 09/21/24 20:40 106 H 21 108/72 92 L 09/21/24 20:29 103 H 23 100/66 94 L 09/21/24 20:24 91 L 09/21/24 20:10 109 H 24 95/69 09/21/24 20:01 106 H 22 100/59 95 09/21/24 19:50 113 H 15 91/64 94 L 09/21/24 19:40 101 H 24 91/55 92 L 09/21/24 19:30 100 H 24 109/72 92 L 09/21/24 19:20 98 H 27 H 99/65 93 L 09/21/24 19:10 101.8 F 101 H 22 97/67 90 L 09/21/24 19:00 96 H 22 100/57 92 L 09/21/24 18:50 112 H 25 H 98/65 92 L 09/21/24 18:40 102.6 F 105 H 24 98/68 93 L 09/21/24 18:30 108 H 24 123/74 93 L 09/21/24 18:25 127 H 27 H 113/85 95 09/21/24 18:24 117 H 26 H 100 09/21/24 18:23 112 H 4 L 09/21/24 18:13 96 H 31 H 96 09/21/24 18:10 96 H 39 H 97 09/21/24 18:02 127 H 23 94 L 09/21/24 17:36 126 H 40 H 132/95 86 L 09/21/24 17:31 102.7 F 133 H 35 H 132/95 82 L Additional Findings: 09/21/24 22:40 HEENT Middle aged, Very obese built in Resp distress currently on BIPAP NECK Supple,no thyromegaly, CVS S1+S2 + 0, no murmers RESP Bilateral equal air entry without Crepts/Wheezes heard GIT Soft non tender,non distended Skin, No rah, no Bruises LEGS No Edema 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 , as pt on BIPAP NEURO AOX3, no focal deficit 09/21/24 23:35 Results - Labs Lab/Micro Results: Lab Results-Last 24 Hours 09/21/24 09/21/24 09/21/24 Range/Units 17:45 18:10 18:10 WBC 6.3 (4.23-9.07) x10^3/uL RBC 4.68 (4.63-6.08) x10^6/uL Hgb 14.2 (13.7-17.5) g/dL Hct 45.5 (40.1-51.0) % MCV 97.2 H (79.0-92.2) fL MCH 30.3 (25.7-32.2) pg MCHC 31.2 L (32.3-36.5) g/dL RDW 15.6 H (11.6-14.4) % Plt Count 68 L (163-337) x10^3/uL MPV 10.5 (9.4-12.4) fL Gran % 87.0 H (34.0-67.9) % Immature Gran % (Auto) 0.8 H (0.001-0.429) % Nucleat RBC Rel Count 0.0 (0.00-0.2) % Eos # (Auto) 0.01 L (0.04-0.54) x10^3/uL Immature Gran # (Auto) 0.05 H (0.001-0.031) x10^3u/L Absolute Lymphs (auto) 0.36 L (1.32-3.57) x10^3/uL Absolute Monos (auto) 0.36 (0.30-0.82) x10^3/uL Absolute Nucleated RBC 0.00 (0.00-0.012) x10^3u/L Lymphocytes % 5.7 L (21.8-53.1) % Monocytes % 5.7 (5.3-12.2) % Eosinophils % 0.2 L (0.8-7.0) % Basophils % 0.6 (0.2-1.2) % Absolute Granulocytes 5.47 H (1.78-5.38) x10^3/uL Basophils # 0.04 (0.01-0.08) x10^3/uL Puncture Site RIGHT RADIAL pCO2 64 H* (35-45) mmHg pO2 71 L (75-100) mmHg Base Excess 2.2 H (-2.0-2.0) O2 Saturation 91 L (94-100) g/dF ABG pH 7.29 L (7.35-7.45) ABG HCO3 30.8 H* (22-28) ABG O2 Sat (Measured) 95 (95-100) % Gideon Test YES A-a Gradient 562 a/A Ratio 0.11 Hemoglobin 14.8 Carboxyhemoglobin 2.7 (0.0-6.9) % THgb Methemoglobin 1.4 (1.4-1.5) % Potassium 3.3 L (3.5-5.1) POC O2 Flow Rate 100 % Sodium (135-145) mmol/L Chloride (98-107) mmol/L Carbon Dioxide 32 H (23-27) mEq/L Anion Gap (5-15) MEQ/L BUN (9-20) mg/dL Creatinine (0.66-1.25) mg/dL Estimated GFR ML/MIN Glucose (74-106) mg/dL Lactic Acid 2.3 H (0.4-2.0) Calcium (8.4-10.2) mg/dL Magnesium (1.6-2.3) mg/dL Total Bilirubin (0.2-1.3) mg/dL AST (17-59) U/L ALT (0-50) U/L Alkaline Phosphatase (38-126) U/L Ammonia (9-30) umol/L Troponin I 0.021 (0.000-0.033) ng/mL NT-Pro-B Natriuret Pep (<300) pg/mL Serum Total Protein (6.3-8.2) g/dL Albumin (3.5-5.0) g/dL Procalcitonin (0.030-0.080) ng/mL Influenza Type A Ag (NEGATIVE) Influenza Type B Ag (NEGATIVE) RSV (PCR) (NEGATIVE) SARS-CoV-2 (PCR) (NEGATIVE) Slides for Path Review YES 09/21/24 09/21/24 09/21/24 Range/Units 18:17 18:17 19:54 WBC (4.23-9.07) x10^3/uL RBC (4.63-6.08) x10^6/uL Hgb (13.7-17.5) g/dL Hct (40.1-51.0) % MCV (79.0-92.2) fL MCH (25.7-32.2) pg MCHC (32.3-36.5) g/dL RDW (11.6-14.4) % Plt Count (163-337) x10^3/uL MPV (9.4-12.4) fL Gran % (34.0-67.9) % Immature Gran % (Auto) (0.001-0.429) % Nucleat RBC Rel Count (0.00-0.2) % Eos # (Auto) (0.04-0.54) x10^3/uL Immature Gran # (Auto) (0.001-0.031) x10^3u/L Absolute Lymphs (auto) (1.32-3.57) x10^3/uL Absolute Monos (auto) (0.30-0.82) x10^3/uL Absolute Nucleated RBC (0.00-0.012) x10^3u/L Lymphocytes % (21.8-53.1) % Monocytes % (5.3-12.2) % Eosinophils % (0.8-7.0) % Basophils % (0.2-1.2) % Absolute Granulocytes (1.78-5.38) x10^3/uL Basophils # (0.01-0.08) x10^3/uL Puncture Site pCO2 (35-45) mmHg pO2 (75-100) mmHg Base Excess (-2.0-2.0) O2 Saturation (94-100) g/dF ABG pH (7.35-7.45) ABG HCO3 (22-28) ABG O2 Sat (Measured) (95-100) % Gideon Test A-a Gradient a/A Ratio Hemoglobin Carboxyhemoglobin (0.0-6.9) % THgb Methemoglobin (1.4-1.5) % Potassium 3.3 L (3.5-5.1) POC O2 Flow Rate % Sodium 136 (135-145) mmol/L Chloride 106 (98-107) mmol/L Carbon Dioxide 28 (23-27) mEq/L Anion Gap 5.4 (5-15) MEQ/L BUN 8 L (9-20) mg/dL Creatinine 0.73 (0.66-1.25) mg/dL Estimated GFR 107.5 ML/MIN Glucose 167 H (74-106) mg/dL Lactic Acid 1.7 (0.4-2.0) Calcium 8.1 L (8.4-10.2) mg/dL Magnesium 1.7 (1.6-2.3) mg/dL Total Bilirubin 1.00 (0.2-1.3) mg/dL AST 65 H (17-59) U/L ALT 23 (0-50) U/L Alkaline Phosphatase 88 (38-126) U/L Ammonia (9-30) umol/L Troponin I (0.000-0.033) ng/mL NT-Pro-B Natriuret Pep 4710 (<300) pg/mL Serum Total Protein 7.2 (6.3-8.2) g/dL Albumin 3.4 L (3.5-5.0) g/dL Procalcitonin 0.350 H (0.030-0.080) ng/mL Influenza Type A Ag POSITIVE A (NEGATIVE) Influenza Type B Ag NEGATIVE (NEGATIVE) RSV (PCR) NEGATIVE (NEGATIVE) SARS-CoV-2 (PCR) NEGATIVE (NEGATIVE) Slides for Path Review 09/21/24 09/21/24 09/21/24 Range/Units 20:31 21:35 Unknown WBC (4.23-9.07) x10^3/uL RBC (4.63-6.08) x10^6/uL Hgb (13.7-17.5) g/dL Hct (40.1-51.0) % MCV (79.0-92.2) fL MCH (25.7-32.2) pg MCHC (32.3-36.5) g/dL RDW (11.6-14.4) % Plt Count (163-337) x10^3/uL MPV (9.4-12.4) fL Gran % (34.0-67.9) % Immature Gran % (Auto) (0.001-0.429) % Nucleat RBC Rel Count (0.00-0.2) % Eos # (Auto) (0.04-0.54) x10^3/uL Immature Gran # (Auto) (0.001-0.031) x10^3u/L Absolute Lymphs (auto) (1.32-3.57) x10^3/uL Absolute Monos (auto) (0.30-0.82) x10^3/uL Absolute Nucleated RBC (0.00-0.012) x10^3u/L Lymphocytes % (21.8-53.1) % Monocytes % (5.3-12.2) % Eosinophils % (0.8-7.0) % Basophils % (0.2-1.2) % Absolute Granulocytes (1.78-5.38) x10^3/uL Basophils # (0.01-0.08) x10^3/uL Puncture Site pCO2 (35-45) mmHg pO2 (75-100) mmHg Base Excess (-2.0-2.0) O2 Saturation (94-100) g/dF ABG pH (7.35-7.45) ABG HCO3 (22-28) ABG O2 Sat (Measured) (95-100) % Gideon Test A-a Gradient a/A Ratio Hemoglobin Carboxyhemoglobin (0.0-6.9) % THgb Methemoglobin (1.4-1.5) % Potassium (3.5-5.1) POC O2 Flow Rate % Sodium (135-145) mmol/L Chloride (98-107) mmol/L Carbon Dioxide (23-27) mEq/L Anion Gap (5-15) MEQ/L BUN (9-20) mg/dL Creatinine (0.66-1.25) mg/dL Estimated GFR ML/MIN Glucose (74-106) mg/dL Lactic Acid (0.4-2.0) Calcium (8.4-10.2) mg/dL Magnesium (1.6-2.3) mg/dL Total Bilirubin (0.2-1.3) mg/dL AST (17-59) U/L ALT (0-50) U/L Alkaline Phosphatase (38-126) U/L Ammonia 51 H 51 H (9-30) umol/L Troponin I 0.042 H* (0.000-0.033) ng/mL NT-Pro-B Natriuret Pep (<300) pg/mL Serum Total Protein (6.3-8.2) g/dL Albumin (3.5-5.0) g/dL Procalcitonin (0.030-0.080) ng/mL Influenza Type A Ag (NEGATIVE) Influenza Type B Ag (NEGATIVE) RSV (PCR) (NEGATIVE) SARS-CoV-2 (PCR) (NEGATIVE) Slides for Path Review - Radiology Impressions Radiology Exams & Impressions: Radiology Procedures Category Date Time Status CHEST 1 VIEW (PORTABLE) Stat Exams 09/21/24 17:33 Taken - Other Procedures and Tests Respiratory Therapy 09/21/24 18:15 BiPap/CPAP STAT Assessment/Plan (1) Acute on chronic hypoxic respiratory failure Current Visit: Yes Status: Acute Code(s): J96.21 - ACUTE AND CHRONIC RESPIRATORY FAILURE WITH HYPOXIA (2) Atrial fibrillation with RVR Current Visit: Yes Status: Acute Code(s): I48.91 - UNSPECIFIED ATRIAL FIBRILLATION (3) Influenza A Current Visit: Yes Status: Acute Code(s): J10.1 - FLU DUE TO OTH IDENT INFLUENZA VIRUS W OTH RESP MANIFEST (4) Pneumonia Current Visit: Yes Status: Acute Qualifiers: Code(s): J18.9 - PNEUMONIA, UNSPECIFIED ORGANISM (5) COPD exacerbation Current Visit: No Status: Acute Code(s): J44.1 - CHRONIC OBSTRUCTIVE PULMONARY DISEASE W (ACUTE) EXACERBATION (6) Elevated troponin Current Visit: No Status: Acute Code(s): R77.8 - OTHER SPECIFIED ABNORMALITIES OF PLASMA PROTEINS Telemedicine Encounter - Telemedicine Encounter Telemedicine Encounter: The entirety of this encounter was performed via TelemedicineThis visit was performed using real-time audio and video connection between my location and thepatients locationwith the assistance of a surrogateat the patients location. Written or verbal consent was obtained from the patient/guardian to perform this visit usingHeadSproutROSTR technology. Any patient questions regarding the telemedicine interaction were answered. Acute hypoxemic/hypercapnic respiratory failure Due to underlying COPD exacerbation Blood gas showed pH 7.29 and pCO2 64 Patient is currently on BiPAP getting admitted in ICU will repeat ABG in 4 to 6 hours to check for improvement Pulmonary will be consulted in the morning Acute COPD exacerbation Continue breathing therapy/Pulmicort 0.5 mg twice daily Continue telemetry 6 mg IV every 8 hourly Continue steroids Acute Congestive heart failure exacerbation BNP reported 4710 Patient is volume overloaded Will continue Lasix 40 mg IV daily Will obtain echocardiogram Fluid restriction and low-salt diet to be continued Atrial fibrillation with RVR Patient initially admitted with rapid ventricular rate got corrected with 15 mg of diltiazem Heart rate currently better Consider restarting diltiazem drip if heart rate remained more than 110 Resume metoprolol/Eliquis Pneumonia Chest x-ray concerning for infiltrates Procalcitonin running high 0.3 Continue ceftriaxone and azithromycin Will check for strep pneumonia and Legionella Keep following up cultures Influenza A infection Continue Tamiflu 75 mg twice daily Elevated troponin/Ho CAD Seems type II due to underlying demand ischemia due to respiratory failure There is no echo in the file I will order 1 for the morning Keep monitoring on telemetry Resume home meds Pt f/u Dr Mateo cancino Cirrhosis Pt follows up with [facility] at [facility] Continue home meds including rifaximin mean Patient follows up with Thrombocytopenia Chronic due to cirrhotic liver disease Keep monitoring platelets closely Hypothyroidism Continue home levothyroxine Recently TSH checked unremarkable Hypertension Blood pressure stable Continue blood pressure meds Hyperlipidemia Continue statins Morbid obesity Complicating current illnesses Needs exercise and dietary advice weight reduction DVT prophylaxis SCD/Eliquis CODE STATUS full 40 minutes critical care time provided in order to assess the clinical status that seems imminent damage and decline to body function. I have reviewed patient lab vitals and imaging in detail question and concerns were addressed
[2024-09-21] MEDS ORDERED: NORCO 5/325 MG PO PRN (23:24)
[2024-09-22] MEDS ORDERED: PROVENTIL 2.5 MG/3 ML NEB IH PRN (00:43)
[2024-09-22] MEDS: xanAX 0.5 MG PO ONE ×2 (01:31→07:52)
[2024-09-22 05:11] LABS: Hematocrit 44.2 % (40.1-51.0); Hemoglobin 13.9 g/dL (13.7-17.5); Mean Cell Volume 96.5 fL (79.0-92.2); Mean Corpuscular Hemoglobin 30.3 pg (25.7-32.2); Mean Corpuscular Hgb Concent. 31.4 g/dL (32.3-36.5); Mean Platelet Volume 10.6 fL (9.4-12.4); Platelet Count 63 x10^3/uL (163-337); Red Blood Count 4.58 x10^6/uL (4.63-6.08); Red Cell Distribution Width 15.8 % (11.6-14.4); White Blood Count 3.8 x10^3/uL (4.23-9.07)
--- NOTE | 2024-09-22 05:31 | PCM.NOTE ---
Date and Time: 09/22/24523 Subjective Assessment: is a 54 year old male With past medical history significant for COPD on 2 L oxygen at home congestive heart failure unknown ejection fraction, coronary artery disease, cirrhosis ,hypertension, hypothyroidism, hyperlipidemia morbid obesity, anxiety, who just got discharged from hospital on 07/19 after admitted for COPD exacerbation, he was advised to follow-up with pulmonary and set up for outpatient sleep study. He presented to ED 09/22/24 with shortness of breath productive cough and fever for last couple of days. In the ER the initial blood pressure was 95/70 pulse was 103 respiratory rate 14. Labs remarkable for thrombocytopenia with platelets 68, hypokalemia with potassium at 3.3, lactic acid at 2.3, uprend on troponins 0.042> 0.021, and procalcitonin 0.350. Tested positive for influenza A chest x-ray significant for infiltrates ABG showed pH 7.29 with pCO2 64. Patient started on BiPAP received antibiotics and admitted with acute respiratory failure secondary to COPD exacerbation and FluA. 09/22/24: Met with patient bedside. Endorses continued dyspnea, cough, and nausea. On 15L oxymask. Lung sounds diminished on auscultation. Encouraged patient to get up in chair for meals and raise HOB as he was laying flat. Objective Data Vital Signs: Vital Signs - 24 hr Temp Pulse Resp BP BP Pulse Ox 09/22/24 04:00 97.8 F 95 H 23 151/94 96 09/22/24 00:20 101 H 24 98 09/21/24 23:31 97.9 F 105 H 25 H 148/99 95 09/21/24 22:52 91 L 09/21/24 22:30 100.6 F 108 H 28 H 129/92 96 09/21/24 22:20 108 H 25 H 135/87 98 09/21/24 22:10 107 H 22 121/91 94 L 09/21/24 22:01 112 H 24 125/79 94 L 09/21/24 21:50 103 H 39 H 99/68 90 L 09/21/24 21:40 94 H 22 104/78 09/21/24 21:30 103 H 14 95/60 09/21/24 21:20 103 H 24 96/59 09/21/24 21:10 100.4 F 97 H 21 102/65 94 L 09/21/24 20:50 93 H 20 95/59 92 L 09/21/24 20:40 106 H 21 108/72 92 L 09/21/24 20:29 103 H 23 100/66 94 L 09/21/24 20:10 109 H 24 95/69 09/21/24 20:01 106 H 22 100/59 95 09/21/24 19:50 113 H 15 91/64 94 L 09/21/24 19:40 101 H 24 91/55 92 L 09/21/24 19:30 100 H 24 109/72 92 L 09/21/24 19:20 98 H 27 H 99/65 93 L 09/21/24 19:10 101.8 F 101 H 22 97/67 90 L 09/21/24 19:00 96 H 22 100/57 92 L 09/21/24 18:50 112 H 25 H 98/65 92 L 09/21/24 18:40 102.6 F 105 H 24 98/68 93 L 09/21/24 18:30 108 H 24 123/74 93 L 09/21/24 18:25 127 H 27 H 113/85 95 09/21/24 18:24 117 H 26 H 100 09/21/24 18:23 112 H 4 L 09/21/24 18:13 96 H 31 H 96 09/21/24 18:10 96 H 39 H 97 09/21/24 18:02 127 H 23 94 L 09/21/24 17:36 126 H 40 H 132/95 86 L 09/21/24 17:31 102.7 F 133 H 35 H 132/95 82 L Pain Assessment - Last Documented Pain Intensity 0 Intake and Output: Intake & Output 09/19/24 09/20/24 09/21/24 09/22/24 11:59 11:59 11:59 11:59 Intake Total 480 Output Total 1000 Balance -520 Weight 195 kg Lab Results: Lab Results-Last 24 Hours 09/21/24 09/21/24 09/21/24 Range/Units 17:45 18:10 18:10 WBC 6.3 (4.23-9.07) x10^3/uL RBC 4.68 (4.63-6.08) x10^6/uL Hgb 14.2 (13.7-17.5) g/dL Hct 45.5 (40.1-51.0) % MCV 97.2 H (79.0-92.2) fL MCH 30.3 (25.7-32.2) pg MCHC 31.2 L (32.3-36.5) g/dL RDW 15.6 H (11.6-14.4) % Plt Count 68 L (163-337) x10^3/uL MPV 10.5 (9.4-12.4) fL Gran % 87.0 H (34.0-67.9) % Immature Gran % (Auto) 0.8 H (0.001-0.429) % Nucleat RBC Rel Count 0.0 (0.00-0.2) % Eos # (Auto) 0.01 L (0.04-0.54) x10^3/uL Immature Gran # (Auto) 0.05 H (0.001-0.031) x10^3u/L Absolute Lymphs (auto) 0.36 L (1.32-3.57) x10^3/uL Absolute Monos (auto) 0.36 (0.30-0.82) x10^3/uL Absolute Nucleated RBC 0.00 (0.00-0.012) x10^3u/L Lymphocytes % 5.7 L (21.8-53.1) % Monocytes % 5.7 (5.3-12.2) % Eosinophils % 0.2 L (0.8-7.0) % Basophils % 0.6 (0.2-1.2) % Absolute Granulocytes 5.47 H (1.78-5.38) x10^3/uL Basophils # 0.04 (0.01-0.08) x10^3/uL Puncture Site RIGHT RADIAL pCO2 64 H* (35-45) mmHg pO2 71 L (75-100) mmHg Base Excess 2.2 H (-2.0-2.0) O2 Saturation 91 L (94-100) g/dF ABG pH 7.29 L (7.35-7.45) ABG HCO3 30.8 H* (22-28) ABG O2 Sat (Measured) 95 (95-100) % Gideon Test YES A-a Gradient 562 a/A Ratio 0.11 Hemoglobin 14.8 Carboxyhemoglobin 2.7 (0.0-6.9) % THgb Methemoglobin 1.4 (1.4-1.5) % Potassium 3.3 L (3.5-5.1) POC O2 Flow Rate 100 % Sodium (135-145) mmol/L Chloride (98-107) mmol/L Carbon Dioxide 32 H (23-27) mEq/L Anion Gap (5-15) MEQ/L BUN (9-20) mg/dL Creatinine (0.66-1.25) mg/dL Estimated GFR ML/MIN Glucose (74-106) mg/dL Lactic Acid 2.3 H (0.4-2.0) Calcium (8.4-10.2) mg/dL Magnesium (1.6-2.3) mg/dL Total Bilirubin (0.2-1.3) mg/dL AST (17-59) U/L ALT (0-50) U/L Alkaline Phosphatase (38-126) U/L Ammonia (9-30) umol/L Troponin I 0.021 (0.000-0.033) ng/mL NT-Pro-B Natriuret Pep (<300) pg/mL Serum Total Protein (6.3-8.2) g/dL Albumin (3.5-5.0) g/dL Procalcitonin (0.030-0.080) ng/mL Influenza Type A Ag (NEGATIVE) Influenza Type B Ag (NEGATIVE) RSV (PCR) (NEGATIVE) SARS-CoV-2 (PCR) (NEGATIVE) Slides for Path Review YES 09/21/24 09/21/24 09/21/24 Range/Units 18:17 18:17 19:54 WBC (4.23-9.07) x10^3/uL RBC (4.63-6.08) x10^6/uL Hgb (13.7-17.5) g/dL Hct (40.1-51.0) % MCV (79.0-92.2) fL MCH (25.7-32.2) pg MCHC (32.3-36.5) g/dL RDW (11.6-14.4) % Plt Count (163-337) x10^3/uL MPV (9.4-12.4) fL Gran % (34.0-67.9) % Immature Gran % (Auto) (0.001-0.429) % Nucleat RBC Rel Count (0.00-0.2) % Eos # (Auto) (0.04-0.54) x10^3/uL Immature Gran # (Auto) (0.001-0.031) x10^3u/L Absolute Lymphs (auto) (1.32-3.57) x10^3/uL Absolute Monos (auto) (0.30-0.82) x10^3/uL Absolute Nucleated RBC (0.00-0.012) x10^3u/L Lymphocytes % (21.8-53.1) % Monocytes % (5.3-12.2) % Eosinophils % (0.8-7.0) % Basophils % (0.2-1.2) % Absolute Granulocytes (1.78-5.38) x10^3/uL Basophils # (0.01-0.08) x10^3/uL Puncture Site pCO2 (35-45) mmHg pO2 (75-100) mmHg Base Excess (-2.0-2.0) O2 Saturation (94-100) g/dF ABG pH (7.35-7.45) ABG HCO3 (22-28) ABG O2 Sat (Measured) (95-100) % Gideon Test A-a Gradient a/A Ratio Hemoglobin Carboxyhemoglobin (0.0-6.9) % THgb Methemoglobin (1.4-1.5) % Potassium 3.3 L (3.5-5.1) POC O2 Flow Rate % Sodium 136 (135-145) mmol/L Chloride 106 (98-107) mmol/L Carbon Dioxide 28 (23-27) mEq/L Anion Gap 5.4 (5-15) MEQ/L BUN 8 L (9-20) mg/dL Creatinine 0.73 (0.66-1.25) mg/dL Estimated GFR 107.5 ML/MIN Glucose 167 H (74-106) mg/dL Lactic Acid 1.7 (0.4-2.0) Calcium 8.1 L (8.4-10.2) mg/dL Magnesium 1.7 (1.6-2.3) mg/dL Total Bilirubin 1.00 (0.2-1.3) mg/dL AST 65 H (17-59) U/L ALT 23 (0-50) U/L Alkaline Phosphatase 88 (38-126) U/L Ammonia (9-30) umol/L Troponin I (0.000-0.033) ng/mL NT-Pro-B Natriuret Pep 4710 (<300) pg/mL Serum Total Protein 7.2 (6.3-8.2) g/dL Albumin 3.4 L (3.5-5.0) g/dL Procalcitonin 0.350 H (0.030-0.080) ng/mL Influenza Type A Ag POSITIVE A (NEGATIVE) Influenza Type B Ag NEGATIVE (NEGATIVE) RSV (PCR) NEGATIVE (NEGATIVE) SARS-CoV-2 (PCR) NEGATIVE (NEGATIVE) Slides for Path Review 09/21/24 09/21/24 09/21/24 Range/Units 20:31 21:35 Unknown WBC (4.23-9.07) x10^3/uL RBC (4.63-6.08) x10^6/uL Hgb (13.7-17.5) g/dL Hct (40.1-51.0) % MCV (79.0-92.2) fL MCH (25.7-32.2) pg MCHC (32.3-36.5) g/dL RDW (11.6-14.4) % Plt Count (163-337) x10^3/uL MPV (9.4-12.4) fL Gran % (34.0-67.9) % Immature Gran % (Auto) (0.001-0.429) % Nucleat RBC Rel Count (0.00-0.2) % Eos # (Auto) (0.04-0.54) x10^3/uL Immature Gran # (Auto) (0.001-0.031) x10^3u/L Absolute Lymphs (auto) (1.32-3.57) x10^3/uL Absolute Monos (auto) (0.30-0.82) x10^3/uL Absolute Nucleated RBC (0.00-0.012) x10^3u/L Lymphocytes % (21.8-53.1) % Monocytes % (5.3-12.2) % Eosinophils % (0.8-7.0) % Basophils % (0.2-1.2) % Absolute Granulocytes (1.78-5.38) x10^3/uL Basophils # (0.01-0.08) x10^3/uL Puncture Site pCO2 (35-45) mmHg pO2 (75-100) mmHg Base Excess (-2.0-2.0) O2 Saturation (94-100) g/dF ABG pH (7.35-7.45) ABG HCO3 (22-28) ABG O2 Sat (Measured) (95-100) % Gideon Test A-a Gradient a/A Ratio Hemoglobin Carboxyhemoglobin (0.0-6.9) % THgb Methemoglobin (1.4-1.5) % Potassium (3.5-5.1) POC O2 Flow Rate % Sodium (135-145) mmol/L Chloride (98-107) mmol/L Carbon Dioxide (23-27) mEq/L Anion Gap (5-15) MEQ/L BUN (9-20) mg/dL Creatinine (0.66-1.25) mg/dL Estimated GFR ML/MIN Glucose (74-106) mg/dL Lactic Acid (0.4-2.0) Calcium (8.4-10.2) mg/dL Magnesium (1.6-2.3) mg/dL Total Bilirubin (0.2-1.3) mg/dL AST (17-59) U/L ALT (0-50) U/L Alkaline Phosphatase (38-126) U/L Ammonia 51 H 51 H (9-30) umol/L Troponin I 0.042 H* (0.000-0.033) ng/mL NT-Pro-B Natriuret Pep (<300) pg/mL Serum Total Protein (6.3-8.2) g/dL Albumin (3.5-5.0) g/dL Procalcitonin (0.030-0.080) ng/mL Influenza Type A Ag (NEGATIVE) Influenza Type B Ag (NEGATIVE) RSV (PCR) (NEGATIVE) SARS-CoV-2 (PCR) (NEGATIVE) Slides for Path Review 09/22/24 Range/Units 05:06 WBC 3.8 L (4.23-9.07) x10^3/uL RBC 4.58 L (4.63-6.08) x10^6/uL Hgb 13.9 (13.7-17.5) g/dL Hct 44.2 (40.1-51.0) % MCV 96.5 H (79.0-92.2) fL MCH 30.3 (25.7-32.2) pg MCHC 31.4 L (32.3-36.5) g/dL RDW 15.8 H (11.6-14.4) % Plt Count 63 L (163-337) x10^3/uL MPV 10.6 (9.4-12.4) fL Gran % (34.0-67.9) % Immature Gran % (Auto) (0.001-0.429) % Nucleat RBC Rel Count (0.00-0.2) % Eos # (Auto) (0.04-0.54) x10^3/uL Immature Gran # (Auto) (0.001-0.031) x10^3u/L Absolute Lymphs (auto) (1.32-3.57) x10^3/uL Absolute Monos (auto) (0.30-0.82) x10^3/uL Absolute Nucleated RBC (0.00-0.012) x10^3u/L Lymphocytes % (21.8-53.1) % Monocytes % (5.3-12.2) % Eosinophils % (0.8-7.0) % Basophils % (0.2-1.2) % Absolute Granulocytes (1.78-5.38) x10^3/uL Basophils # (0.01-0.08) x10^3/uL Puncture Site pCO2 (35-45) mmHg pO2 (75-100) mmHg Base Excess (-2.0-2.0) O2 Saturation (94-100) g/dF ABG pH (7.35-7.45) ABG HCO3 (22-28) ABG O2 Sat (Measured) (95-100) % Gideon Test A-a Gradient a/A Ratio Hemoglobin Carboxyhemoglobin (0.0-6.9) % THgb Methemoglobin (1.4-1.5) % Potassium (3.5-5.1) POC O2 Flow Rate % Sodium (135-145) mmol/L Chloride (98-107) mmol/L Carbon Dioxide (23-27) mEq/L Anion Gap (5-15) MEQ/L BUN (9-20) mg/dL Creatinine (0.66-1.25) mg/dL Estimated GFR ML/MIN Glucose (74-106) mg/dL Lactic Acid (0.4-2.0) Calcium (8.4-10.2) mg/dL Magnesium (1.6-2.3) mg/dL Total Bilirubin (0.2-1.3) mg/dL AST (17-59) U/L ALT (0-50) U/L Alkaline Phosphatase (38-126) U/L Ammonia (9-30) umol/L Troponin I (0.000-0.033) ng/mL NT-Pro-B Natriuret Pep (<300) pg/mL Serum Total Protein (6.3-8.2) g/dL Albumin (3.5-5.0) g/dL Procalcitonin (0.030-0.080) ng/mL Influenza Type A Ag (NEGATIVE) Influenza Type B Ag (NEGATIVE) RSV (PCR) (NEGATIVE) SARS-CoV-2 (PCR) (NEGATIVE) Slides for Path Review Radiology Exams: Radiology Procedures Category Date Time Status CHEST 1 VIEW (PORTABLE) Stat Exams 09/21/24 17:33 Taken ECHO W/2D AND DOPPLER [US] Routine Exams 09/22/24 04:00 Ordered ECHO W/2D AND DOPPLER [US] Routine Exams 09/22/24 23:25 Stop Req Assessment/Plan (1) Acute respiratory failure with hypoxia Current Visit: No Status: Acute Assessment & Plan: -Secondary to copd exac/pneumonia/flua -CXR with infiltrates -Supplemental oxygen with goal spo2 > 91- currently on 15L oxymizer -RT eval and follow -Nebs/INH -ABG if significant hypoxia/lethargy -consider pulm consult -steroids -Tamiflu/ceftriaxone/azithromycin -Procal reviewed and elevated Code(s): J96.01 - ACUTE RESPIRATORY FAILURE WITH HYPOXIA (2) Influenza A Current Visit: Yes Status: Acute Assessment & Plan: -See ARF Code(s): J10.1 - FLU DUE TO OTH IDENT INFLUENZA VIRUS W OTH RESP MANIFEST (3) CHF exacerbation Current Visit: Yes Status: Acute Assessment & Plan: -BNP reviewed at 4710 -Patient is volume overloaded -Continue Lasix 40 mg IV daily - echocardiogram Code(s): I50.9 - HEART FAILURE, UNSPECIFIED (4) Pneumonia Current Visit: Yes Status: Acute Assessment & Plan: -See ARF Code(s): J18.9 - PNEUMONIA, UNSPECIFIED ORGANISM (5) Elevated troponin Current Visit: Yes Status: Acute Assessment & Plan: -Seems type II due to underlying demand ischemia due to respiratory failure -Troponins reviewed and uptrending 0.051>0.042>0.021 -No echo on file -Obtain echo -Keep monitoring on telemetry -Resume home meds -Pt f/u Dr Mateo cancino Code(s): R79.89 - OTHER SPECIFIED ABNORMAL FINDINGS OF BLOOD CHEMISTRY (6) Cirrhosis Current Visit: Yes Status: Acute Assessment & Plan: -Pt follows up with [facility] at Dr Yu -Continue home meds including rifaximin mean (7) Thrombocytopenia Current Visit: Yes Status: Acute Assessment & Plan: -Chronic due to cirrhotic liver disease -Keep monitoring platelets closely (8) HLD (hyperlipidemia) Current Visit: Yes Status: Acute Assessment & Plan: -continue statin Code(s): E78.5 - HYPERLIPIDEMIA, UNSPECIFIED (9) Morbid obesity Current Visit: Yes Status: Acute Assessment & Plan: -advised exercise and diet Code(s): E66.01 - MORBID (SEVERE) OBESITY DUE TO EXCESS CALORIES (10) Atrial fibrillation with RVR Current Visit: No Status: Acute Assessment & Plan: -Patient initially admitted with rapid ventricular rate got corrected with 15 mg of diltiazem -Heart rate controlled -Consider diltiazem drip if heart rate remained more than 110 -Resume metoprolol/Eliquis Code(s): I48.91 - UNSPECIFIED ATRIAL FIBRILLATION (11) COPD exacerbation Current Visit: No Status: Acute Assessment & Plan: -See ARF Code(s): J44.1 - CHRONIC OBSTRUCTIVE PULMONARY DISEASE W (ACUTE) EXACERBATION (12) HTN (hypertension) Current Visit: No Status: Chronic Code(s): I10 - ESSENTIAL (PRIMARY) HYPERTENSION (13) Hypothyroid Current Visit: No Status: Chronic Assessment & Plan: -Blood pressure stable -Continue blood pressure meds DVT prophylaxis SCD/Eliquis CODE STATUS full Code(s): E03.9 - HYPOTHYROIDISM, UNSPECIFIED (14) Hypokalemia Current Visit: Yes Status: Acute Assessment & Plan: -Potassium on admission at 3.3 - now WNL at 3.6 - resolved Code(s): E87.6 - HYPOKALEMIA
[2024-09-22 05:37] LABS: ANION GAP 4.9 MEQ/L (5-15); Creatinine 1 0.67 mg/dL (0.66-1.25); EST GLOMERULAR FILTRATION RATE 110.3 ML/MIN; PREALBUMIN 6.84 mg/dL (17.6-36.0); Potassium 3.6 mmol/L (3.5-5.1)
[2024-09-22] MEDS ORDERED: Sterile H2O 10 ml IJ ONE (05:41)
[2024-09-22] MEDS ORDERED: solu-MEDROL ONE (05:41)
[2024-09-22] MEDS: [UNRECOGNIZED DRUG - MIXTURE] IV SCH (05:48)
[2024-09-22] MEDS ORDERED: solu-MEDROL 60 MG, Sterile H2O 10 ml 2 ML IV SCH (06:00)
[2024-09-22] MEDS ORDERED: solu-MEDROL IV SCH (06:00)
[2024-09-22] MEDS ORDERED: SYNTHROID 75 MCG ONE (06:11)
[2024-09-22] MEDS ORDERED: SYNTHROID 100 MCG ONE (06:12)
[2024-09-22] MEDS: SYNTHROID 88 MCG PO SCH (06:23)
[2024-09-22] MEDS ORDERED: SYNTHROID 88 MCG PO SCH (07:00)
[2024-09-22] MEDS: PULMICORT 0.5 MG/2 ML RESPULES IH SCH (07:04)
[2024-09-22] MEDS ORDERED: MEDICATION INTERVENTION MC SCH (07:30)
[2024-09-22] MEDS: SYNTHROID PO SCH (07:59)
--- NOTE | 2024-09-22 08:49 | XRAY ---
Indication: Short of breath. Comparison: July 14, 2024 Portable chest slightly degraded by respiration artifact. Lungs demonstrates new diffuse bilateral patchy airspace disease without consolidation/large effusion. Heart borderline enlarged. Bony thorax intact again with osteopenia and degenerative changes.
[2024-09-22] MEDS ORDERED: Lasix 40 MG/4 ML IV SCH (10:00)
[2024-09-22] MEDS ORDERED: Lopressor 25MG Tab PO SCH (10:00)
[2024-09-22] MEDS ORDERED: Zithromax 500 MG/ 250 ML NaCl Premix 500 MG/250 ML IVPB IV SCH (10:00)
[2024-09-22] MEDS ORDERED: PULMICORT 0.5 MG/2 ML RESPULES IH SCH (10:00)
[2024-09-22] MEDS ORDERED: Prozac 20 MG PO SCH (10:00)
[2024-09-22] MEDS ORDERED: ELIQUIS 2.5 MG TABLET PO SCH (10:00)
[2024-09-22] MEDS ORDERED: Xifaxan 200 MG PO SCH ×2 (10:00)
[2024-09-22] MEDS ORDERED: Protonix 40MG Tablet PO SCH (10:00)
[2024-09-22] MEDS ORDERED: xanAX 0.25 MG PO SCH (10:00)
[2024-09-22] MEDS ORDERED: ROCEPHIN 1 GM / 100 ML NaCl 1 GM/100 ML IVPB IV SCH (10:00)
[2024-09-22] MEDS: xanAX 0.25 MG PO SCH (11:17)
[2024-09-22] MEDS: Tamiflu 75MG Capsule PO SCH (11:17)
[2024-09-22] MEDS: Lasix 40 MG/4 ML IV SCH (11:17)
[2024-09-22] MEDS: Lopressor 25MG Tab PO SCH (11:17)
[2024-09-22] MEDS: ELIQUIS 2.5 MG TABLET PO SCH (11:17)
[2024-09-22] MEDS: Protonix 40MG Tablet PO SCH (11:17)
[2024-09-22] MEDS: ROCEPHIN 1 GM / 100 ML NaCl 1 GM/100 ML IVPB IV SCH (11:18)
[2024-09-22] MEDS ORDERED: ATARAX 25 MG PO PRN (11:51)
[2024-09-22] MEDS: Zithromax 500 MG/ 250 ML NaCl Premix 500 MG/250 ML IVPB IV SCH (12:07)
[2024-09-22] MEDS ORDERED: PHENERGAN 25 MG ONE (13:32)
[2024-09-22] MEDS: solu-MEDROL 60 MG, Sterile H2O 10 ml 2 ML IV SCH (13:35)
[2024-09-22] MEDS: PHENERGAN 25 MG PO PRN (13:35)
[2024-09-22] MEDS: NORCO 5/325 MG PO PRN (13:35)
[2024-09-22] MEDS ORDERED: PHENERGAN 25 MG PO PRN (13:52)
[2024-09-22] MEDS: NEURONTIN PO SCH (15:21)
[2024-09-22] MEDS: Prozac 20 MG PO SCH (20:58)
[2024-09-22] MEDS: Seroquel 25 MG PO SCH (20:58)
[2024-09-22] MEDS: Lopressor 50 MG PO SCH (20:58)
[2024-09-22] MEDS: DESYREL 50 MG PO SCH (20:59)
[2024-09-22] MEDS: Requip 0.5 MG PO SCH (20:59)
[2024-09-22] MEDS ORDERED: NON-FORMULARY ITEM (Quetiapine Fumarate [Seroquel] 50 MG Tablet) PO SCH (22:00)
[2024-09-22] MEDS ORDERED: NON-FORMULARY ITEM (Trazodone Hcl [Trazodone Hcl] 100 MG Tablet) PO SCH (22:00)
[2024-09-22] MEDS ORDERED: Requip 0.5 MG PO SCH (22:00)
[2024-09-22] MEDS ORDERED: NON-FORMULARY ITEM (Rifaximin [Xifaxan] 550 MG Tablet) PO SCH (22:00)
--- NOTE | 2024-09-23 05:20 | PCM.NOTE ---
Date and Time: 09/23/24519 Subjective Assessment: is a 54 year old male With past medical history significant for COPD on 2 L oxygen at home congestive heart failure unknown ejection fraction, coronary artery disease, cirrhosis ,hypertension, hypothyroidism, hyperlipidemia morbid obesity, anxiety, who just got discharged from hospital on 07/19 after admitted for COPD exacerbation, he was advised to follow-up with pulmonary and set up for outpatient sleep study. He presented to ED 09/22/24 with shortness of breath productive cough and fever for last couple of days. In the ER the initial blood pressure was 95/70 pulse was 103 respiratory rate 14. Labs remarkable for thrombocytopenia with platelets 68, hypokalemia with potassium at 3.3, lactic acid at 2.3, uprend on troponins 0.042> 0.021, and procalcitonin 0.350. Tested positive for influenza A chest x-ray significant for infiltrates ABG showed pH 7.29 with pCO2 64. Patient started on BiPAP received antibiotics and admitted with acute respiratory failure secondary to COPD exacerbation and FluA. 09/22/24: Met with patient bedside. Endorses continued dyspnea, cough, and nausea. On 15L oxymask. Lung sounds diminished on auscultation. Encouraged patient to get up in chair for meals and raise HOB as he was laying flat. 09/23: Met with patient bedside. Laying flat in bed. Oxygen down to 12L oxymask from 15L. Endorses dyspnea improved. Cough more productive. Nausea and vomiting have resolved. Lung sounds coarse with exp wheezing on auscultation. - Review of Systems Constitutional: Weakness Eyes: No Symptoms Ears, Nose, & Throat: No Symptoms Respiratory: Cough, Short Of Breath, Wheezing Cardiac: No Symptoms Abdominal/Gastrointestinal: No Symptoms Genitourinary Symptoms: No Symptoms Musculoskeletal: No Symptoms Skin: No Symptoms Neurological: No Symptoms Psychological: No Symptoms Endocrine: No Symptoms Hematologic/Lymphatic: No Symptoms Immunological/Allergic: No Symptoms Objective Exam General Appearance: no apparent distress, obese Neurologic Exam: alert, oriented x 3, cooperative Skin Exam: normal color Wound Assessment: Skin/Wound Assessment Wound/Incision Assessment Start: 09/22/24 00:30 Text: Status: Active Freq: Q6H Protocol: Document 09/22/24 20:00 MP (Rec: 09/23/24 03:09 MP [id number]) Wound Photo Photo Taken No Eye Exam: PERRL Ears, Nose, Throat Exam: normal ENT inspection Neck Exam: normal inspection Respiratory Exam: crackles/rales, wheezing Cardiovascular Exam: regular rate/rhythm, normal heart sounds Gastrointestinal/Abdomen Exam: soft, normal bowel sounds Extremity Exam: normal inspection Back Exam: normal inspection Male Genitalia Exam: deferred Rectal Exam: deferred Objective Data Vital Signs: Vital Signs - 24 hr Temp Pulse Resp BP Pulse Ox 09/23/24 00:00 97.7 F 81 20 132/64 98 09/22/24 22:03 92 H 23 97 09/22/24 20:00 98.6 F 112 H 26 H 145/75 97 09/22/24 16:45 92 L 09/22/24 16:30 104 H 20 95 09/22/24 16:00 96.1 F 104 H 141/96 92 L 09/22/24 11:55 96.1 F 103 H 24 141/96 91 L 09/22/24 08:00 98.5 F 105 H 30 H 146/93 89 L 09/22/24 07:18 90 L 09/22/24 07:09 105 H 24 99 Pain Assessment - Last Documented Pain Intensity 5 Pain Scale Used 0-10 Pain Scale Intake and Output: Intake & Output 09/20/24 09/21/24 09/22/24 09/23/24 11:59 11:59 11:59 11:59 Intake Total 720 1730 Output Total 1000 6300 Balance -280 -4570 Weight 195 kg Lab Results: Lab Results-Last 24 Hours 09/22/24 09/22/24 09/22/24 Range/Units 05:06 05:06 07:07 Sodium 138 (135-145) mmol/L Potassium 3.6 (3.5-5.1) mmol/L Chloride 104 (98-107) mmol/L Carbon Dioxide 33 H (22-30) mmol/L Anion Gap 4.9 L (5-15) MEQ/L BUN 8 L (9-20) mg/dL Creatinine 0.67 (0.66-1.25) mg/dL Estimated GFR 110.3 ML/MIN Glucose 109 H (74-106) mg/dL POC Glucometer 99 (74 to 106) mg/dL Calcium 8.0 L (8.4-10.2) mg/dL Troponin I 0.051 H* (0.000-0.033) ng/mL Prealbumin 6.84 L (17.6-36.0) mg/dL 09/22/24 09/22/24 09/22/24 Range/Units 11:04 17:26 22:20 Sodium (135-145) mmol/L Potassium (3.5-5.1) mmol/L Chloride (98-107) mmol/L Carbon Dioxide (22-30) mmol/L Anion Gap (5-15) MEQ/L BUN (9-20) mg/dL Creatinine (0.66-1.25) mg/dL Estimated GFR ML/MIN Glucose (74-106) mg/dL POC Glucometer 139 H 124 H 130 H (74 to 106) mg/dL Calcium (8.4-10.2) mg/dL Troponin I (0.000-0.033) ng/mL Prealbumin (17.6-36.0) mg/dL Radiology Exams: Radiology Procedures Category Date Time Status CHEST 1 VIEW (PORTABLE) Stat Exams 09/21/24 17:33 Completed ECHO W/2D AND DOPPLER [US] Routine Exams 09/22/24 04:00 Taken Multi-Disciplinary Progress Notes: Multi-Disciplinary Progress Notes 09/22/24 12:07 Case Management Note by Chloe Beltre CALL TO [facility] TO REPORT THAT PT IS ADMITTED TO HOSPITAL. THEY WILL NEED TO BE NOTIFIED ON DISCHARGE. [phone]. Initialized on 09/22/24 12:07 - END OF NOTE Assessment/Plan (1) Acute respiratory failure with hypoxia Current Visit: No Status: Acute Assessment & Plan: -Secondary to copd exac/pneumonia/flua -CXR with infiltrates -Supplemental oxygen with goal spo2 > 91- currently on 15L oxymizer -RT eval and follow -Nebs/INH -ABG if significant hypoxia/lethargy -consider pulm consult -steroids -Tamiflu/ceftriaxone/azithromycin -Procal reviewed and elevated 09/23/24: -12L oxymizer from 15L -improving -continue tamiflu/ceftriaxone/azith/steroids -Labs pending collection -nausea/vomiting resolved -add flutter Code(s): J96.01 - ACUTE RESPIRATORY FAILURE WITH HYPOXIA (2) Influenza A Current Visit: Yes Status: Acute Assessment & Plan: -See ARF Code(s): J10.1 - FLU DUE TO OTH IDENT INFLUENZA VIRUS W OTH RESP MANIFEST (3) CHF exacerbation Current Visit: Yes Status: Acute Assessment & Plan: -BNP reviewed at 4710 -Patient is volume overloaded -Continue Lasix 40 mg IV daily - echocardiogram 09/23: -echo pending -continue lasix Code(s): I50.9 - HEART FAILURE, UNSPECIFIED (4) Pneumonia Current Visit: Yes Status: Acute Assessment & Plan: -See ARF Code(s): J18.9 - PNEUMONIA, UNSPECIFIED ORGANISM (5) Elevated troponin Current Visit: Yes Status: Acute Assessment & Plan: -Seems type II due to underlying demand ischemia due to respiratory failure -Troponins reviewed and uptrending 0.051>0.042>0.021 -No echo on file -Obtain echo -Keep monitoring on telemetry -Resume home meds -Pt f/u Dr Mateo cancino Code(s): R79.89 - OTHER SPECIFIED ABNORMAL FINDINGS OF BLOOD CHEMISTRY (6) Cirrhosis Current Visit: Yes Status: Acute Assessment & Plan: -Pt follows up with [facility] at Dr Yu -Continue home meds including rifaximin mean (7) Thrombocytopenia Current Visit: Yes Status: Acute Assessment & Plan: -Chronic due to cirrhotic liver disease -Keep monitoring platelets closely (8) HLD (hyperlipidemia) Current Visit: Yes Status: Acute Assessment & Plan: -continue statin Code(s): E78.5 - HYPERLIPIDEMIA, UNSPECIFIED (9) Morbid obesity Current Visit: Yes Status: Acute Assessment & Plan: -advised exercise and diet Code(s): E66.01 - MORBID (SEVERE) OBESITY DUE TO EXCESS CALORIES (10) Atrial fibrillation with RVR Current Visit: No Status: Acute Assessment & Plan: -Patient initially admitted with rapid ventricular rate got corrected with 15 mg of diltiazem -Heart rate controlled -Consider diltiazem drip if heart rate remained more than 110 -Resume metoprolol/Eliquis Code(s): I48.91 - UNSPECIFIED ATRIAL FIBRILLATION (11) COPD exacerbation Current Visit: No Status: Acute Assessment & Plan: -See ARF Code(s): J44.1 - CHRONIC OBSTRUCTIVE PULMONARY DISEASE W (ACUTE) EXACERBATION (12) HTN (hypertension) Current Visit: No Status: Chronic Code(s): I10 - ESSENTIAL (PRIMARY) HYPERTENSION (13) Hypothyroid Current Visit: No Status: Chronic Assessment & Plan: -Blood pressure stable -Continue blood pressure meds DVT prophylaxis SCD/Eliquis CODE STATUS full Code(s): J96.01 - ACUTE RESPIRATORY FAILURE WITH HYPOXIA (2) Influenza A Current Visit: Yes Status: Acute Code(s): J10.1 - FLU DUE TO OTH IDENT INFLUENZA VIRUS W OTH RESP MANIFEST (3) CHF exacerbation Current Visit: Yes Status: Acute Code(s): I50.9 - HEART FAILURE, UNSPECIFIED (4) Pneumonia Current Visit: Yes Status: Acute Code(s): J18.9 - PNEUMONIA, UNSPECIFIED ORGANISM (5) Elevated troponin Current Visit: Yes Status: Acute Code(s): R79.89 - OTHER SPECIFIED ABNORMAL FINDINGS OF BLOOD CHEMISTRY (6) Cirrhosis Current Visit: Yes Status: Acute (7) Thrombocytopenia Current Visit: Yes Status: Acute (8) HLD (hyperlipidemia) Current Visit: Yes Status: Acute Code(s): E78.5 - HYPERLIPIDEMIA, UNSPECIFIED (9) Morbid obesity Current Visit: Yes Status: Acute Code(s): E66.01 - MORBID (SEVERE) OBESITY DUE TO EXCESS CALORIES (10) Atrial fibrillation with RVR Current Visit: No Status: Acute Code(s): I48.91 - UNSPECIFIED ATRIAL FIBRILLATION (11) COPD exacerbation Current Visit: No Status: Acute Code(s): J44.1 - CHRONIC OBSTRUCTIVE PULMONARY DISEASE W (ACUTE) EXACERBATION (12) HTN (hypertension) Current Visit: No Status: Chronic Code(s): I10 - ESSENTIAL (PRIMARY) HYPERTENSION (13) Hypothyroid Current Visit: No Status: Chronic Code(s): E03.9 - HYPOTHYROIDISM, UNSPECIFIED (14) Hypokalemia Current Visit: Yes Status: Acute Code(s): E87.6 - HYPOKALEMIA
[2024-09-23] MEDS ORDERED: LEVOTHYROXINE SODIUM 175 MCG PO SCH (10:00)
[2024-09-23 16:12] LABS: Hematocrit 46.2 % (40.1-51.0); Hemoglobin 14.7 g/dL (13.7-17.5); Mean Cell Volume 95.7 fL (79.0-92.2); Mean Corpuscular Hemoglobin 30.4 pg (25.7-32.2); Mean Corpuscular Hgb Concent. 31.8 g/dL (32.3-36.5); Mean Platelet Volume 11.6 fL (9.4-12.4); Platelet Count 52 x10^3/uL (163-337); Red Blood Count 4.83 x10^6/uL (4.63-6.08); Red Cell Distribution Width 14.7 % (11.6-14.4); White Blood Count 3.2 x10^3/uL (4.23-9.07)
[2024-09-23 16:24] LABS: ALBUMIN 3.1 g/dL (3.5-5.0); BILIRUBIN,TOTAL 0.7 mg/dL (0.2-1.3); Calcium 8.2 mg/dL (8.4-10.2); Creatinine 1 0.61 mg/dL (0.66-1.25); EST GLOMERULAR FILTRATION RATE 113.4 ML/MIN; Potassium 3.2 mmol/L (3.5-5.1); Total Protein 6.8 g/dL (6.3-8.2)
[2024-09-23 16:32] LABS: ANION GAP 10.2 MEQ/L (5-15)
[2024-09-23 17:42] LABS: Slide Review YES
[2024-09-23] MEDS: Klor Con PO SCH (18:34)
[2024-09-23] MEDS: xanAX 0.5 MG PO PRN (22:39)
--- NOTE | 2024-09-24 05:22 | PCM.NOTE ---
Date and Time: 09/24/24 0519 Subjective Assessment: is a 54 year old male With past medical history significant for COPD on 2 L oxygen at home congestive heart failure unknown ejection fraction, coronary artery disease, cirrhosis ,hypertension, hypothyroidism, hyperlipidemia morbid obesity, anxiety, who just got discharged from hospital on 07/19 after admitted for COPD exacerbation, he was advised to follow-up with pulmonary and set up for outpatient sleep study. He presented to ED 09/22/24 with shortness of breath productive cough and fever for last couple of days. In the ER the initial blood pressure was 95/70 pulse was 103 respiratory rate 14. Labs remarkable for thrombocytopenia with platelets 68, hypokalemia with potassium at 3.3, lactic acid at 2.3, uprend on troponins 0.042> 0.021, and procalcitonin 0.350. Tested positive for influenza A chest x-ray significant for infiltrates ABG showed pH 7.29 with pCO2 64. Patient started on BiPAP received antibiotics and admitted with acute respiratory failure secondary to COPD exacerbation and FluA. 09/22/24: Met with patient bedside. Endorses continued dyspnea, cough, and nausea. On 15L oxymask. Lung sounds diminished on auscultation. Encouraged patient to get up in chair for meals and raise HOB as he was laying flat. 09/23: Met with patient bedside. Laying flat in bed. Oxygen down to 12L oxymask from 15L. Endorses dyspnea improved. Cough more productive. Nausea and vomiting have resolved. Lung sounds coarse with exp wheezing on auscultation. 09/24/24: Met with patient up in chair. States Dyspnea and cough much improved. N/V resolved. Oxygen requirements now at 5L oxymask from 12L yesterday. Lung sound improving - still coarse with exp wheezing. Plan to reduce steroid- continue Tamiflu and abx. - Review of Systems Constitutional: Weakness Eyes: No Symptoms Ears, Nose, & Throat: No Symptoms Respiratory: Cough, Short Of Breath, Wheezing Cardiac: No Symptoms Abdominal/Gastrointestinal: No Symptoms Genitourinary Symptoms: No Symptoms Musculoskeletal: No Symptoms Skin: No Symptoms Neurological: No Symptoms Psychological: No Symptoms Endocrine: No Symptoms Hematologic/Lymphatic: No Symptoms Immunological/Allergic: No Symptoms Objective Exam General Appearance: no apparent distress, obese Neurologic Exam: alert, oriented x 3, cooperative Skin Exam: normal color Eye Exam: PERRL Ears, Nose, Throat Exam: normal ENT inspection Neck Exam: normal inspection Respiratory Exam: crackles/rales, wheezing Cardiovascular Exam: regular rate/rhythm, normal heart sounds Gastrointestinal/Abdomen Exam: soft, normal bowel sounds Extremity Exam: normal inspection Back Exam: normal inspection Male Genitalia Exam: deferred Rectal Exam: deferred Objective Data Vital Signs: Vital Signs - 24 hr Temp Pulse Resp BP Pulse Ox 09/24/24 00:00 79 18 93 L 09/23/24 20:00 97.9 F 87 18 137/97 93 L 09/23/24 17:39 100 H 22 99 09/23/24 16:00 97.7 F 82 17 138/69 94 L 09/23/24 12:00 98.3 F 87 17 134/55 96 09/23/24 08:00 98.4 F 85 21 151/99 94 L 09/23/24 05:37 88 16 97 Pain Assessment - Last Documented Pain Intensity 5 Pain Scale Used 0-10 Pain Scale Intake and Output: Intake & Output 09/21/24 09/22/24 09/23/24 09/24/24 11:59 11:59 11:59 11:59 Intake Total 720 1850 1070 Output Total 1000 6300 6500 Balance -280 -6926 -7714 Weight 195 kg Lab Results: Lab Results-Last 24 Hours 09/23/24 09/23/24 09/23/24 Range/Units 07:47 12:10 16:06 WBC 3.2 L (4.23-9.07) x10^3/uL RBC 4.83 (4.63-6.08) x10^6/uL Hgb 14.7 (13.7-17.5) g/dL Hct 46.2 (40.1-51.0) % MCV 95.7 H (79.0-92.2) fL MCH 30.4 (25.7-32.2) pg MCHC 31.8 L (32.3-36.5) g/dL RDW 14.7 H (11.6-14.4) % Plt Count 52 L (163-337) x10^3/uL MPV 11.6 (9.4-12.4) fL Sodium (135-145) mmol/L Potassium (3.5-5.1) mmol/L Chloride (98-107) mmol/L Carbon Dioxide (22-30) mmol/L Anion Gap (5-15) MEQ/L BUN (9-20) mg/dL Creatinine (0.66-1.25) mg/dL Estimated GFR ML/MIN Glucose (74-106) mg/dL POC Glucometer 162 H 173 H (74 to 106) mg/dL Calcium (8.4-10.2) mg/dL Magnesium (1.6-2.3) mg/dL Total Bilirubin (0.2-1.3) mg/dL AST (17-59) U/L ALT (0-50) U/L Alkaline Phosphatase (38-126) U/L Serum Total Protein (6.3-8.2) g/dL Albumin (3.5-5.0) g/dL Slides for Path Review YES 09/23/24 09/23/24 09/23/24 Range/Units 16:06 16:45 16:49 WBC (4.23-9.07) x10^3/uL RBC (4.63-6.08) x10^6/uL Hgb (13.7-17.5) g/dL Hct (40.1-51.0) % MCV (79.0-92.2) fL MCH (25.7-32.2) pg MCHC (32.3-36.5) g/dL RDW (11.6-14.4) % Plt Count (163-337) x10^3/uL MPV (9.4-12.4) fL Sodium 143 (135-145) mmol/L Potassium 3.2 L (3.5-5.1) mmol/L Chloride 101 (98-107) mmol/L Carbon Dioxide 35 H (22-30) mmol/L Anion Gap 10.2 (5-15) MEQ/L BUN 10 (9-20) mg/dL Creatinine 0.61 L (0.66-1.25) mg/dL Estimated GFR 113.4 ML/MIN Glucose 160 H (74-106) mg/dL POC Glucometer 152 H (74 to 106) mg/dL Calcium 8.2 L (8.4-10.2) mg/dL Magnesium 1.7 (1.6-2.3) mg/dL Total Bilirubin 0.70 (0.2-1.3) mg/dL AST 84 H (17-59) U/L ALT 27 (0-50) U/L Alkaline Phosphatase 71 (38-126) U/L Serum Total Protein 6.8 (6.3-8.2) g/dL Albumin 3.1 L (3.5-5.0) g/dL Slides for Path Review 09/23/24 09/23/24 09/23/24 Range/Units 17:55 19:34 21:49 WBC (4.23-9.07) x10^3/uL RBC (4.63-6.08) x10^6/uL Hgb (13.7-17.5) g/dL Hct (40.1-51.0) % MCV (79.0-92.2) fL MCH (25.7-32.2) pg MCHC (32.3-36.5) g/dL RDW (11.6-14.4) % Plt Count (163-337) x10^3/uL MPV (9.4-12.4) fL Sodium (135-145) mmol/L Potassium 3.2 L 3.3 L (3.5-5.1) mmol/L Chloride (98-107) mmol/L Carbon Dioxide (22-30) mmol/L Anion Gap (5-15) MEQ/L BUN (9-20) mg/dL Creatinine (0.66-1.25) mg/dL Estimated GFR ML/MIN Glucose (74-106) mg/dL POC Glucometer 168 H (74 to 106) mg/dL Calcium (8.4-10.2) mg/dL Magnesium (1.6-2.3) mg/dL Total Bilirubin (0.2-1.3) mg/dL AST (17-59) U/L ALT (0-50) U/L Alkaline Phosphatase (38-126) U/L Serum Total Protein (6.3-8.2) g/dL Albumin (3.5-5.0) g/dL Slides for Path Review Multi-Disciplinary Progress Notes: Multi-Disciplinary Progress Notes 09/23/24 12:22 Radiology Note by JUAN DAVID RADER TRANSTHORACIC ECHOCARDIOGRAM 09/22/2024: 1. Technically difficult study. 2. Atria appear severely dilated. Ventricular sizes appear normal. 3. Mild concentric left ventricular hypertrophy 4. Left ventricular systolic function appears to be at the lower limits of normal. Estimated EF 50-55%. LVEF may be underestimated in setting of tachycardia. 5. Unable to determine grade of diastolic dysfunction due to underlying atrial fibrillation. 6. Right ventricular systolic function appears normal. 7. Valves appear grossly normal. 8. Doppler: Mild tricuspid regurgitation. 9. Mild pulmonary hypertension with an estimated PA systolic pressure 46 mmHg. 10. Severely elevated right atrial pressure. 11. No pericardial effusion. Juan David Rader MD [facility] Initialized on 09/23/24 12:22 - END OF NOTE Assessment/Plan (1) Acute respiratory failure with hypoxia Current Visit: No Status: Acute Assessment & Plan: -Secondary to copd exac/pneumonia/flua -CXR with infiltrates -Supplemental oxygen with goal spo2 > 91- currently on 15L oxymizer -RT eval and follow -Nebs/INH -ABG if significant hypoxia/lethargy -consider pulm consult -steroids -Tamiflu/ceftriaxone/azithromycin -Procal reviewed and elevated 09/23/24: -12L oxymizer from 15L -improving -continue tamiflu/ceftriaxone/azith/steroids -Labs pending collection -nausea/vomiting resolved -add flutter 09/23: -Bcult with NGTD -Gram stain pending 09/24: -5L oxymask -improved lung sounds/cough more productive -continue tamiflu/azith, ceftriaxone, reduce solumedrol to 40 q8h Code(s): J96.01 - ACUTE RESPIRATORY FAILURE WITH HYPOXIA (2) Influenza A Current Visit: Yes Status: Acute Assessment & Plan: -See ARF Code(s): J10.1 - FLU DUE TO OTH IDENT INFLUENZA VIRUS W OTH RESP MANIFEST (3) CHF exacerbation Current Visit: Yes Status: Acute Assessment & Plan: -BNP reviewed at 4710 -Patient is volume overloaded -Continue Lasix 40 mg IV daily - echocardiogram 09/23: -echo pending -continue lasix 09/24: -TRANSTHORACIC ECHOCARDIOGRAM 09/22/2024: Reviewed 1. Technically difficult study. 2. Atria appear severely dilated. Ventricular sizes appear normal. 3. Mild concentric left ventricular hypertrophy 4. Left ventricular systolic function appears to be at the lower limits of normal. Estimated EF 50-55%. LVEF may be underestimated in setting of tachycar brenda. 5. Unable to determine grade of diastolic dysfunction due to underlying atrial fibrillation. 6. Right ventricular systolic function appears normal. 7. Valves appear grossly normal. 8. Doppler: Mild tricuspid regurgitation. 9. Mild pulmonary hypertension with an estimated PA systolic pressure 46 mmHg. 10. Severely elevated right atrial pressure. 11. No pericardial effusion. -contiue lasix Code(s): I50.9 - HEART FAILURE, UNSPECIFIED (4) Pneumonia Current Visit: Yes Status: Acute Assessment & Plan: -See ARF Code(s): J18.9 - PNEUMONIA, UNSPECIFIED ORGANISM (5) Elevated troponin Current Visit: Yes Status: Acute Assessment & Plan: -Seems type II due to underlying demand ischemia due to respiratory failure -Troponins reviewed and uptrending 0.051>0.042>0.021 -No echo on file -Obtain echo -Keep monitoring on telemetry -Resume home meds -Pt f/u Dr Mateo cancino Code(s): R79.89 - OTHER SPECIFIED ABNORMAL FINDINGS OF BLOOD CHEMISTRY (6) Cirrhosis Current Visit: Yes Status: Acute Assessment & Plan: -Pt follows up with [facility] at Dr uY -Continue home meds including rifaximin mean 09/24: -repeat ammonia level -continue lactulose -No AMS (7) Thrombocytopenia Current Visit: Yes Status: Acute Assessment & Plan: -Chronic due to cirrhotic liver disease -Keep monitoring platelets closely 09/24: -Plts reviewed at 49 -continue to monitor - replace if < 10 (8) HLD (hyperlipidemia) Current Visit: Yes Status: Acute Assessment & Plan: -continue statin Code(s): E78.5 - HYPERLIPIDEMIA, UNSPECIFIED (9) Morbid obesity Current Visit: Yes Status: Acute Assessment & Plan: -advised exercise and diet Code(s): E66.01 - MORBID (SEVERE) OBESITY DUE TO EXCESS CALORIES (10) Atrial fibrillation with RVR Current Visit: No Status: Acute Assessment & Plan: -Patient initially admitted with rapid ventricular rate got corrected with 15 mg of diltiazem -Heart rate controlled -Consider diltiazem drip if heart rate remained more than 110 -Resume metoprolol/Eliquis Code(s): I48.91 - UNSPECIFIED ATRIAL FIBRILLATION (11) COPD exacerbation Current Visit: No Status: Acute Assessment & Plan: -See ARF Code(s): J44.1 - CHRONIC OBSTRUCTIVE PULMONARY DISEASE W (ACUTE) EXACERBATION (12) HTN (hypertension) Current Visit: No Status: Chronic Code(s): I10 - ESSENTIAL (PRIMARY) HYPERTENSION (13) Hypothyroid Current Visit: No Status: Chronic Assessment & Plan: -Blood pressure stable -Continue blood pressure meds DVT prophylaxis SCD/Eliquis CODE STATUS full Code(s): J96.01 - ACUTE RESPIRATORY FAILURE WITH HYPOXIA (2) Influenza A Current Visit: Yes Status: Acute Code(s): J10.1 - FLU DUE TO OTH IDENT INFLUENZA VIRUS W OTH RESP MANIFEST (3) CHF exacerbation Current Visit: Yes Status: Acute Code(s): I50.9 - HEART FAILURE, UNSPECIFIED (4) Pneumonia Current Visit: Yes Status: Acute Code(s): J18.9 - PNEUMONIA, UNSPECIFIED ORGANISM (5) Elevated troponin Current Visit: Yes Status: Acute Code(s): R79.89 - OTHER SPECIFIED ABNORMAL FINDINGS OF BLOOD CHEMISTRY (6) Cirrhosis Current Visit: Yes Status: Acute (7) Thrombocytopenia Current Visit: Yes Status: Acute (8) HLD (hyperlipidemia) Current Visit: Yes Status: Acute Code(s): E78.5 - HYPERLIPIDEMIA, UNSPECIFIED (9) Morbid obesity Current Visit: Yes Status: Acute Code(s): E66.01 - MORBID (SEVERE) OBESITY DUE TO EXCESS CALORIES (10) Atrial fibrillation with RVR Current Visit: No Status: Acute Code(s): I48.91 - UNSPECIFIED ATRIAL FIBRILLATION (11) COPD exacerbation Current Visit: No Status: Acute Code(s): J44.1 - CHRONIC OBSTRUCTIVE PULMONARY DISEASE W (ACUTE) EXACERBATION (12) HTN (hypertension) Current Visit: No Status: Chronic Code(s): I10 - ESSENTIAL (PRIMARY) HYPERTENSION (13) Hypothyroid Current Visit: No Status: Chronic Code(s): E03.9 - HYPOTHYROIDISM, UNSPECIFIED (14) Hypokalemia Current Visit: Yes Status: Acute Code(s): E87.6 - HYPOKALEMIA
[2024-09-24] MEDS ORDERED: solu-MEDROL 40 MG, Sterile H2O 10 ml 2 ML IV SCH (09:31)
[2024-09-24 09:41] LABS: Absolute Neutrophil Ct (ANC) 2.93 x10^3/uL (1.78-5.38); Basophil (Absolute #) 0 x10^3/uL (0.01-0.08); Eosinophil % 0.3 % (0.8-7.0); Eosinophil (Absolute #) 0.01 x10^3/uL (0.04-0.54); Hemoglobin 15.9 g/dL (13.7-17.5); IMMATURE GRAN # 0.01 x10^3u/L (0.001-0.031); IMMATURE GRAN % 0.3 % (0.001-0.429); Lymphocyte (Absolute #) 0.65 x10^3/uL (1.32-3.57); Lymphocytes % 16.9 % (21.8-53.1); Mean Cell Volume 98.5 fL (79.0-92.2); Mean Corpuscular Hemoglobin 30.1 pg (25.7-32.2); Mean Corpuscular Hgb Concent. 30.6 g/dL (32.3-36.5); Mean Platelet Volume 11.5 fL (9.4-12.4); Monocyte (Absolute #) 0.24 x10^3/uL (0.30-0.82); Monocytes % 6.3 % (5.3-12.2); Neutrophil % 76.2 % (34.0-67.9); Platelet Count 49 x10^3/uL (163-337); Red Blood Count 5.28 x10^6/uL (4.63-6.08); Red Cell Distribution Width 14.7 % (11.6-14.4); White Blood Count 3.8 x10^3/uL (4.23-9.07)
[2024-09-24 09:47] LABS: ALBUMIN 3.3 g/dL (3.5-5.0); BILIRUBIN,TOTAL 0.9 mg/dL (0.2-1.3); Calcium 8.4 mg/dL (8.4-10.2); Creatinine 1 0.58 mg/dL (0.66-1.25); EST GLOMERULAR FILTRATION RATE 115.2 ML/MIN; Potassium 3.8 mmol/L (3.5-5.1); Total Protein 7.4 g/dL (6.3-8.2)
[2024-09-24 09:55] LABS: ANION GAP 10.8 MEQ/L (5-15)
[2024-09-24 11:05] LABS: Slide Review 1 YES
[2024-09-24] MEDS: solu-MEDROL 40 MG, Sterile H2O 10 ml 1 ML IV SCH (17:09)
[2024-09-25 05:49] LABS: Absolute Neutrophil Ct (ANC) 2.57 x10^3/uL (1.78-5.38); BASOPHIL % 0.3 % (0.2-1.2); Basophil (Absolute #) 0.01 x10^3/uL (0.01-0.08); Eosinophil (Absolute #) 0 x10^3/uL (0.04-0.54); Hematocrit 45.9 % (40.1-51.0); Hemoglobin 14.4 g/dL (13.7-17.5); IMMATURE GRAN # 0.01 x10^3u/L (0.001-0.031); IMMATURE GRAN % 0.3 % (0.001-0.429); Lymphocyte (Absolute #) 0.48 x10^3/uL (1.32-3.57); Lymphocytes % 14.5 % (21.8-53.1); Mean Cell Volume 96.4 fL (79.0-92.2); Mean Corpuscular Hemoglobin 30.3 pg (25.7-32.2); Mean Corpuscular Hgb Concent. 31.4 g/dL (32.3-36.5); Mean Platelet Volume 12.5 fL (9.4-12.4); Monocyte (Absolute #) 0.25 x10^3/uL (0.30-0.82); Monocytes % 7.5 % (5.3-12.2); Neutrophil % 77.4 % (34.0-67.9); Platelet Count 55 x10^3/uL (163-337); Red Blood Count 4.76 x10^6/uL (4.63-6.08); Red Cell Distribution Width 14.7 % (11.6-14.4); White Blood Count 3.3 x10^3/uL (4.23-9.07)
[2024-09-25 07:06] LABS: ALBUMIN 2.9 g/dL (3.5-5.0); BILIRUBIN,TOTAL 0.9 mg/dL (0.2-1.3); Calcium 8.3 mg/dL (8.4-10.2); Creatinine 1 0.5 mg/dL (0.66-1.25); EST GLOMERULAR FILTRATION RATE 120.5 ML/MIN; Potassium 3.4 mmol/L (3.5-5.1); Total Protein 6.5 g/dL (6.3-8.2)
[2024-09-25 07:14] LABS: ANION GAP 16.4 MEQ/L (5-15)
[2024-09-25 07:33] VITALS: RESP 16
[2024-09-25 07:33] LABS: Slide Review 1 YES
[2024-09-25] MEDS: Klor Con PO SCH (09:55)
[2024-09-25] MEDS: solu-MEDROL 40 MG, Sterile H2O 10 ml 1 ML IV SCH (09:55)
--- NOTE | 2024-09-25 14:25 | PCM.DS ---
Discharge Summary Date of Admission: 09/21/24 23:23 Date of Discharge: 09/25/24 Admitting Physician: MELANIE UGARTE MD Primary Care Provider: KETAN ECHEVARRIA Allergies Allergies nitrofurantoin [From Macrobid] Allergy (Verified 09/21/24 18:46) Rash adhesive tape Adverse Reaction (Verified 09/21/24 18:46) Hospital Summary - Hospital Course Hospital Course: is a 54 year old male with past medical history significant for COPD on 2 L oxygen at home congestive heart failure unknown ejection fraction, coronary artery disease, cirrhosis ,hypertension, hypothyroidism, hyperlipidemia morbid obesity, anxiety, who just got discharged from hospital on 07/19 after admitted for COPD exacerbation, he was advised to follow-up with pulmonary and set up for outpatient sleep study. He presented to ED 09/22/24 with shortness of breath productive cough and fever for a couple of days. In the ER the initial blood pressure was 95/70 pulse was 103 respiratory rate 14. Labs remarkable for thrombocytopenia with platelets 68, hypokalemia with potassium at 3.3, lactic acid at 2.3, uprend on troponins 0.042> 0.021, and procalcitonin 0.350. Tested positive for influenza A chest x-ray significant for infiltrates ABG showed pH 7.29 with pCO2 64. Patient started on BiPAP received antibiotics and admitted with acute respiratory failure secondary to COPD exacerbation and Flu A. He is currently on baseline O2 of 4lNC. He states he feels better and would liek to d/c. Amy placed in ER in admission and order provided to d/c today as he does not meet criteria. K+ 3.4 and replaced. He would like an OP sleep study set up before he d/c's today. Will also have pt f/u with Pulm OP. Will continue antibiotics and steroids OP. Advised pt not to sleep flat as he appears to have obstructive sleep apnea. He denies any further concerns at this time. - Vitals & Intake/Output Vital Signs: Vital Signs Temperature 97.8 F 09/25/24 11:26 Pulse Rate 96 H 09/25/24 11:26 Respiratory Rate 16 09/25/24 11:26 Blood Pressure 106/81 09/25/24 11:26 O2 Sat by Pulse Oximetry 95 09/25/24 11:26 Intake & Output: Intake & Output 09/23/24 09/24/24 09/25/24 09/26/24 11:59 11:59 11:59 11:59 Intake Total 1859 7688 3011 Output Total 5107 4609 4167 4746 Balance -4450 -5790 -799 -1800 - Lab Result Diagrams: 09/25/24 05:50 09/25/24 05:50 Lab Results-Last 24 Hrs: Lab Results-Last 24 Hours 09/24/24 09/25/24 09/25/24 Range/Units 16:27 05:50 05:50 WBC 3.3 L (4.23-9.07) x10^3/uL RBC 4.76 (4.63-6.08) x10^6/uL Hgb 14.4 (13.7-17.5) g/dL Hct 45.9 (40.1-51.0) % MCV 96.4 H (79.0-92.2) fL MCH 30.3 (25.7-32.2) pg MCHC 31.4 L (32.3-36.5) g/dL RDW 14.7 H (11.6-14.4) % Plt Count 55 L (163-337) x10^3/uL MPV 12.5 H (9.4-12.4) fL Gran % 77.4 H (34.0-67.9) % Immature Gran % (Auto) 0.3 (0.001-0.429) % Nucleat RBC Rel Count 0.0 (0.00-0.2) % Eos # (Auto) 0 L (0.04-0.54) x10^3/uL Immature Gran # (Auto) 0.01 (0.001-0.031) x10^3u/L Absolute Lymphs (auto) 0.48 L (1.32-3.57) x10^3/uL Absolute Monos (auto) 0.25 L (0.30-0.82) x10^3/uL Absolute Nucleated RBC 0.00 (0.00-0.012) x10^3u/L Lymphocytes % 14.5 L (21.8-53.1) % Monocytes % 7.5 (5.3-12.2) % Eosinophils % 0.0 L (0.8-7.0) % Basophils % 0.3 (0.2-1.2) % Absolute Granulocytes 2.57 (1.78-5.38) x10^3/uL Basophils # 0.01 (0.01-0.08) x10^3/uL Sodium 139 (135-145) mmol/L Potassium 3.4 L (3.5-5.1) mmol/L Chloride 98 (98-107) mmol/L Carbon Dioxide 38 H (22-30) mmol/L Anion Gap 16.4 H (5-15) MEQ/L BUN 10 (9-20) mg/dL Creatinine 0.50 L (0.66-1.25) mg/dL Estimated GFR 120.5 ML/MIN Glucose 133 H (74-106) mg/dL POC Glucometer 152 H (74 to 106) mg/dL Calcium 8.3 L (8.4-10.2) mg/dL Total Bilirubin 0.90 (0.2-1.3) mg/dL AST 66 H (17-59) U/L ALT 28 (0-50) U/L Alkaline Phosphatase 73 (38-126) U/L Serum Total Protein 6.5 (6.3-8.2) g/dL Albumin 2.9 L (3.5-5.0) g/dL Slides for Path Review YES 09/25/24 09/25/24 Range/Units 07:44 11:49 WBC (4.23-9.07) x10^3/uL RBC (4.63-6.08) x10^6/uL Hgb (13.7-17.5) g/dL Hct (40.1-51.0) % MCV (79.0-92.2) fL MCH (25.7-32.2) pg MCHC (32.3-36.5) g/dL RDW (11.6-14.4) % Plt Count (163-337) x10^3/uL MPV (9.4-12.4) fL Gran % (34.0-67.9) % Immature Gran % (Auto) (0.001-0.429) % Nucleat RBC Rel Count (0.00-0.2) % Eos # (Auto) (0.04-0.54) x10^3/uL Immature Gran # (Auto) (0.001-0.031) x10^3u/L Absolute Lymphs (auto) (1.32-3.57) x10^3/uL Absolute Monos (auto) (0.30-0.82) x10^3/uL Absolute Nucleated RBC (0.00-0.012) x10^3u/L Lymphocytes % (21.8-53.1) % Monocytes % (5.3-12.2) % Eosinophils % (0.8-7.0) % Basophils % (0.2-1.2) % Absolute Granulocytes (1.78-5.38) x10^3/uL Basophils # (0.01-0.08) x10^3/uL Sodium (135-145) mmol/L Potassium (3.5-5.1) mmol/L Chloride (98-107) mmol/L Carbon Dioxide (22-30) mmol/L Anion Gap (5-15) MEQ/L BUN (9-20) mg/dL Creatinine (0.66-1.25) mg/dL Estimated GFR ML/MIN Glucose (74-106) mg/dL POC Glucometer 132 H 215 H (74 to 106) mg/dL Calcium (8.4-10.2) mg/dL Total Bilirubin (0.2-1.3) mg/dL AST (17-59) U/L ALT (0-50) U/L Alkaline Phosphatase (38-126) U/L Serum Total Protein (6.3-8.2) g/dL Albumin (3.5-5.0) g/dL Slides for Path Review Micro Results-Entire Visit: Microbiology 09/21/24 18:10 Blood Culture - Preliminary Blood Accuchecks Date 09/25/24 Date 09/25/24 Date 09/24/24 Time 11:53 Time 07:53 Time 17:28 - Procedures and Test Procedures and Tests throughout Hospitalization: Therapy Orders & Screens 09/21/24 18:15 BiPap/CPAP ROUTINE Comment: 09/21/24 23:34 Respiratory Therapy Consult ONCE Comment: Reason For Exam: 09/22/24 00:45 Oxygen Nasal Cannula 4 lpm Comment: Diagnosis: Shortness of breath 09/23/24 11:20 FLUTTER [Flutter Therapy] UD Comment: Diagnosis: Shortness of breath Incentive Spirometry UD Comment: Diagnosis: Shortness of breath Discharge Exam General Appearance: no apparent distress, alert, obese Neurologic Exam: alert, oriented x 3, cooperative, normal mood/affect, nml ce rebellar function, sensation nml, No motor deficits Eye Exam: PERRL, EOMI, eyes nml inspection Ears, Nose, Throat Exam: normal ENT inspection, pharynx normal, moist mucous membranes Neck Exam: normal inspection, non-tender, supple, full range of motion Respiratory Exam: normal breath sounds, lungs clear, No respiratory distress Cardiovascular Exam: regular rate/rhythm, normal heart sounds Gastrointestinal/Abdomen Exam: soft, No tenderness, No mass Male Genitalia Exam: deferred Rectal Exam: deferred Back Exam: normal inspection, normal range of motion, No CVA tenderness, No vertebral tenderness Extremity Exam: normal inspection, normal range of motion Skin Exam: normal color, warm, dry Final Diagnosis/Problem List - Final Discharge Diagnosis/Problem (1) Acute on chronic hypoxic respiratory failure Current Visit: No Status: Acute Assessment & Plan: -Bcult with NGTD - On BL 4lO@ 93% - advised to sleep sitting up - will d/c with antibiotics and steroids - Home sleep study ordered - F/U with Dr. Gallegos- PUL OP Code(s): J96.21 - ACUTE AND CHRONIC RESPIRATORY FAILURE WITH HYPOXIA (2) CHF exacerbation Current Visit: Yes Status: Acute Assessment & Plan: -TRANSTHORACIC ECHOCARDIOGRAM 09/22/2024: Reviewed 1. Technically difficult study. 2. Atria appear severely dilated. Ventricular sizes appear normal. 3. Mild concentric left ventricular hypertrophy 4. Left ventricular systolic function appears to be at the lower limits of normal. Estimated EF 50-55%. LVEF may be underestimated in setting of tachycardia. 5. Unable to determine grade of diastolic dysfunction due to underlying atrial fibrillation. 6. Right ventricular systolic function appears normal. 7. Valves appear grossly normal. 8. Doppler: Mild tricuspid regurgitation. 9. Mild pulmonary hypertension with an estimated PA systolic pressure 46 mmHg. 10. Severely elevated right atrial pressure. 11. No pericardial effusion. -contiue lasix Code(s): I50.9 - HEART FAILURE, UNSPECIFIED (3) HLD (hyperlipidemia) Current Visit: Yes Status: Chronic Assessment & Plan: -continue statin Code(s): E78.5 - HYPERLIPIDEMIA, UNSPECIFIED (4) Influenza A Current Visit: Yes Status: Acute Assessment & Plan: - Tamiflu - see ARF plan above Code(s): J10.1 - FLU DUE TO OTH IDENT INFLUENZA VIRUS W OTH RESP MANIFEST (5) Morbid obesity Current Visit: Yes Status: Chronic Assessment & Plan: - advised diet and exercise control Code(s): E66.01 - MORBID (SEVERE) OBESITY DUE TO EXCESS CALORIES (6) COPD exacerbation Current Visit: No Status: Acute Assessment & Plan: -See ARF Code(s): J44.1 - CHRONIC OBSTRUCTIVE PULMONARY DISEASE W (ACUTE) EXACERBATION (7) Elevated troponin Current Visit: No Status: Acute Assessment & Plan: -Seems type II due to underlying demand ischemia due to respiratory failure -Troponins reviewed and uptrending 0.051>0.042>0.021 -echo reviewed -telemetry -Resume home meds -Pt f/u Dr Mateo cancino Code(s): R77.8 - OTHER SPECIFIED ABNORMALITIES OF PLASMA PROTEINS (8) Pneumonia Current Visit: No Status: Acute Assessment & Plan: -See ARF Code(s): J18.9 - PNEUMONIA, UNSPECIFIED ORGANISM (9) HTN (hypertension) Current Visit: No Status: Chronic Assessment & Plan: -Blood pressure stable -Continue blood pressure meds Code(s): I10 - ESSENTIAL (PRIMARY) HYPERTENSION (10) Hypothyroid Current Visit: No Status: Chronic Assessment & Plan: - Continue synthroid Code(s): E03.9 - HYPOTHYROIDISM, UNSPECIFIED (11) Atrial fibrillation with RVR Current Visit: No Status: Chronic Assessment & Plan: -Patient initially admitted with rapid ventricular rate got corrected with 15 mg of diltiazem - Heart rate controlled - metoprolol/Eliquis Code(s): I48.91 - UNSPECIFIED ATRIAL FIBRILLATION (12) Thrombocytopenia Current Visit: Yes Status: Chronic Assessment & Plan: -Chronic due to cirrhotic liver disease - Keep monitoring platelets closely (13) Cirrhosis Current Visit: Yes Status: Chronic Assessment & Plan: -Pt follows up with GI at Dr Yu -Continue home meds including rifaximin - ammonia level < 9 on 09/24 - Discharge Discharge Date: 09/25/24 Disposition: Home, Self-Care Condition: Fair Prescriptions: Continue Rifaximin [Xifaxan] 550 mg PO BID 30 Days #60 tablet Apixaban [Eliquis] 5 mg PO BID #60 tablet Metoprolol Tartrate 50 mg [Lopressor 50 MG] 100 mg PO BID Gabapentin 600 mg PO TID Levothyroxine Sodium 175 mcg PO DAILY Ropinirole HCl 0.5 mg [Requip 0.5 MG] 0.5 mg PO QHS Hydroxyzine HCl 25 mg [Atarax 25 mg] 25 mg PO TID PRN PRN #45 tablet PRN Reason: Itching Trazodone HCl 100 mg PO HS Quetiapine Fumarate [Seroquel] 50 mg PO HS ALPRAZolam [Alprazolam] 0.5 mg PO TID PRN PRN Reason: Anxiety Fluoxetine HCl 20 mg [Prozac 20 MG] 40 mg PO HS Albuterol 2.5 mg/3 ml Neb [Proventil 2.5 mg/3 ml Neb] 2.5 mg IH Q6H PRN PRN 7 Days #25 unit PRN Reason: Shortness Of Breath/Wheezing Bumetanide 1 mg [Bumex 1 mg] 2 mg PO DAILY PRN PRN Reason: swelling Promethazine HCl 25 mg [Phenergan 25 mg] 25 mg PO DAILY PRN PRN Reason: Nausea Additional Instructions: IN HOME SLEEP STUDY TO BE COMPLETED. PLEASE FOLLOW INSTRUCTIONS OF THE RESPIRATORY DEPARTMENT. A HOME [facility] WILL CALL YOU TO ARRANGE YOUR NEXT APPOINTMENT. Follow up with: KETAN ECHEVARRIA [Primary Care Provider] - 10/02/24 1:30 pm
[2024-09-25 15:02] LABS: MAGNESIUM 1.6 mg/dL (1.6-2.3); Potassium 3.4 mmol/L (3.5-5.1)
[2024-09-25 16:11] VITALS: BP 116/62; PULSE 100; TEMP 98; O2SAT 93
== END 2024-09-25 17:36 | disposition home or self-care (01) | DRG 189 ==
LOC: ED 17:28 → MED SURG 23:23
PROVIDERS: ADMIT Internal Medicine; ATTEND Internal Medicine
DX: J96.21 Acute and chronic respiratory failure with hypoxia (principal); J18.9 Pneumonia, unspecified organism; J44.1 Chronic obstructive pulmonary disease with (acute) exacerbation; I11.0 Hypertensive heart disease with heart failure; I50.9 Heart failure, unspecified; E78.5 Hyperlipidemia, unspecified; J10.1 Influenza due to other identified influenza virus with other respiratory manifestations; E66.01 Morbid (severe) obesity due to excess calories; R77.8 Other specified abnormalities of plasma proteins; E03.9 Hypothyroidism, unspecified; I48.91 Unspecified atrial fibrillation; D69.6 Thrombocytopenia, unspecified; K74.60 Unspecified cirrhosis of liver; I25.10 Atherosclerotic heart disease of native coronary artery without angina pectoris; F17.200 Nicotine dependence, unspecified, uncomplicated; Z79.01 Long term (current) use of anticoagulants; Z79.899 Other long term (current) drug therapy; Z99.81 Dependence on supplemental oxygen
CPT/HCPCS: 0241U; 36415; 36600; 51702; 71045; 80048; 80053; 82140; 82375; 82803; 82947; 83605; 83735; 83880; 84132; 84134; 84145; 84484; 85025; 85027; 87040; 93005; 93306; 94002; 94003; 94640; 94667; 94668; 94762; 96374; 96375; 99291; 99292; Q3014; 99284; J0456; J0696; J1940; J2919; A9270-GY

== ENCOUNTER 2024-09-26 13:25 | Emergency (ER) | payer MEDICARE ==
[2024-09-26 13:40] VITALS: TEMP 99; O2SAT 96
--- NOTE | 2024-09-26 13:40 | ERPHSYRPT ---
- History of Present Illness Time Seen by Provider: 09/26/24 13:39 Source: patient, family Exam Limitations: no limitations Physician History: This is a morbidly obese 54-year-old white male patient who arrives by private vehicle and is a patient of Dr. Stern with the complaint of hypoxia. Patient continues to smoke tobacco cigarettes daily. I reviewed the recent admission note on this patient. Patient was admitted on 09/21/2024 and discharged home yesterday, 09/25/2024. I reviewed the laboratory data results of hospital stay. Patient was diagnosed with influenza A, atrial fibrillation with RVR. Since the patient's been home, even less than 24 hours, his elderly family are unable to care for him. His oxygen saturation level on 4 L of oxygen is 96 to 97%. He feels weak and cannot take care of himself. He states he is here for management and monitoring in an extended care facility if possible. Patient states he feels better than he did when he came in to the emergency department on 09/21/2024. The twelve-lead EKG performed on 09/21/2024 showed atrial fibrillation with RVR and a heart rate of 128. Patient has a history of atrial fibrillation and is on Eliquis, cirrhosis, hypertension, hypothyroidism, anxiety, bipolar disorder and CHF. Patient's oxygen saturation was apparently low. However, his oxygen tank was not working/functional. Once this was corrected patient's oxygen saturation level on his usual 4 L is 96 to 97%. Severity of Dyspnea-Max: mild Severity of Dyspnea-Current: mild Possible Cause: frequent episodes, chronic episodes Modifying Factors: Improves With: activity Associated Symptoms: No cough, No chest pain/discomfort Allergies/Adverse Reactions: nitrofurantoin [From Macrobid] Allergy (Verified 09/26/24 13:33) Rash adhesive tape Adverse Reaction (Verified 09/26/24 13:33) Home Medications: Gabapentin 600 mg PO TID 05/01/22 [History] Metoprolol Tartrate 50 mg [Lopressor 50 MG] 100 mg PO BID 05/01/22 [History] Levothyroxine Sodium 175 mcg PO DAILY 08/11/22 [History] Ropinirole HCl 0.5 mg [Requip 0.5 MG] 0.5 mg PO QHS 08/11/22 [History] ALPRAZolam [Alprazolam] 0.5 mg PO TID PRN 07/12/24 [History] Fluoxetine HCl 20 mg [Prozac 20 MG] 40 mg PO HS 07/12/24 [History] Quetiapine Fumarate [Seroquel] 50 mg PO HS 07/12/24 [History] Trazodone HCl 100 mg PO HS 07/12/24 [History] Bumetanide 1 mg [Bumex 1 mg] 2 mg PO DAILY PRN 09/22/24 [History] Promethazine HCl 25 mg [Phenergan 25 mg] 25 mg PO DAILY PRN 09/22/24 [History] Hx Tetanus, Diphtheria Vaccination/Date Given: Yes Hx Influenza Vaccination/Date Given: No Hx Pneumococcal Vaccination/Date Given: No Travel Risk - International Travel Have you traveled outside of the country in past 3 weeks: No - Emerging Infectious Disease Are you exhibiting symptoms associated with any current EIDs: Yes Symptoms: Cough: New Onset, Fever, Shortness of Breath - Review of Systems Constitutional: Weakness Eyes: No Symptoms Ears, Nose, & Throat: No Symptoms Respiratory: Dyspnea Cardiac: No Symptoms Abdominal/Gastrointestinal: No Symptoms Genitourinary Symptoms: No Symptoms Musculoskeletal: No Symptoms Skin: No Symptoms Neurological: No Symptoms Psychological: No Symptoms Endocrine: No Symptoms Hematologic/Lymphatic: No Symptoms Immunological/Allergic: No Symptoms All Other Systems: Reviewed and Negative - Past Medical History Pertinent Past Medical History: Yes Neurological History: No Pertinent History ENT History: No Pertinent History Cardiac History: Arrhythmia, Congestive Heart Failure, Coronary Artery Disease, Hypertension Respiratory History: Asthma, Bronchitis, CHF, COPD, Pneumonia Endocrine Medical History: Hypothyroidism Musculoskeletal History: Osteoarthritis GI Medical History: Hepatitis, Cirrhosis History: No Pertinent History Psycho-Social History: Anxiety, Bipolar, Depression Male Reproductive Disorders: No Pertinent History Other Medical History: hepatitis A, B, C according to pt report. - Past Surgical History Past Surgical History: Yes Neuro Surgical History: No Pertinent History Cardiac: Cardiac Catheterization Respiratory: No Pertinent History Gastrointestinal: Cholecystectomy Genitourinary: No Pertinent History Musculoskeletal: Orthopedic Surgery Male Surgical History: No Pertinent History Other Surgical History: right knee arthroscopy. heart cath appx 5 years ago. Significant Family History: no pertinent family hx, heart disease, cancer - Social History Smoking Status: Current every day smoker How long have you smoked: 40 Exposure to second hand smoke: No Drug Use: none Patient Lives Alone: No - Social Determinants of Health Will the patient participate in the screening: Yes Do you worry about a steady place to live?: No In the past 12 months,have you had to go without utilities?: No Transportation Issues: No Has anyone in your support network made you feel unsafe?: No Have you or anyone in your house had to go without enough: No - Nursing Vital Signs Nursing Vital Signs: Initial Vital Signs Pulse Rate 91 H 09/26/24 13:32 Respiratory Rate 22 09/26/24 13:32 Blood Pressure 140/97 09/26/24 13:32 O2 Sat by Pulse Oximetry 94 L 09/26/24 13:32 Pain Scale Pain Intensity 0 - Physical Exam General Appearance: no apparent distress, alert, anxiety, obese Eye Exam: PERRL/EOMI, eyes nml inspection Ears, Nose, Throat Exam: hearing grossly normal, normal ENT inspection, normal pharynx Neck Exam: normal inspection, non-tender, supple, full range of motion Respiratory Exam: normal breath sounds, lungs clear, airway intact, No chest tenderness, No respiratory distress Cardiovascular/Chest Exam: normal heart sounds, regular rate/rhythm Abdominal/Gastrointestinal Exam: soft, normal bowel sounds, No tenderness Rectal Exam: not done Extremity Exam: non-tender, normal range of motion, normal inspection Neurologic Exam: alert, oriented x 3, cooperative, chef assistant II-XII nml as tested, sensation nml Skin Exam: normal color, warm, dry Lymphatic Exam: No adenopathy SpO2 Interpretation: normal O2 Delivery: Nasal Cannula (4 L oxygen. This is his usual oxygen nasal cannula level) - Course Nursing assessment & vital signs reviewed: Yes Ordered Tests: Active Orders 24 hr Category Date Time Status Training Associate STAT Care 09/26/24 13:40 Active EKG-ER Only STAT Care 09/26/24 13:40 Active CHEST 1 VIEW (PORTABLE) Stat Exams 09/26/24 13:40 Completed ARTERIAL BLOOD GASES Stat Lab 09/26/24 13:50 Completed BLOOD CULTURE Stat Lab 09/26/24 13:40 Received CBC W DIFF Stat Lab 09/26/24 14:05 Completed CMP Stat Lab 09/26/24 14:05 Completed Lactic Acid Stat Lab 09/26/24 13:50 Completed MAGNESIUM Stat Lab 09/26/24 14:05 Completed NT PRO BNPII Stat Lab 09/26/24 14:05 Completed PROCALCITONIN Stat Lab 09/26/24 14:05 Completed PROTIME WITH INR Stat Lab 09/26/24 14:05 Completed TROPONIN Q4H Lab 09/26/24 14:05 Completed TROPONIN Q4H Lab 09/26/24 17:45 Ordered TROPONIN Q4H Lab 09/26/24 21:45 Ordered Lab/Rad Data: Laboratory Result Diagrams 09/26/24 14:05 09/26/24 14:05 Laboratory Results 09/26/24 09/26/24 09/26/24 Range/Units 14:05 14:05 14:05 WBC (4.23-9.07) x10^3/uL RBC (4.63-6.08) x10^6/uL Hgb (13.7-17.5) g/dL Hct (40.1-51.0) % MCV (79.0-92.2) fL MCH (25.7-32.2) pg MCHC (32.3-36.5) g/dL RDW (11.6-14.4) % Plt Count (163-337) x10^3/uL MPV (9.4-12.4) fL Gran % (34.0-67.9) % Immature Gran % (Auto) (0.001-0.429) % Nucleat RBC Rel Count (0.00-0.2) % Eos # (Auto) (0.04-0.54) x10^3/uL Immature Gran # (Auto) (0.001-0.031) x10^3u/L Absolute Lymphs (auto) (1.32-3.57) x10^3/uL Absolute Monos (auto) (0.30-0.82) x10^3/uL Absolute Nucleated RBC (0.00-0.012) x10^3u/L Lymphocytes % (21.8-53.1) % Monocytes % (5.3-12.2) % Eosinophils % (0.8-7.0) % Basophils % (0.2-1.2) % Absolute Granulocytes (1.78-5.38) x10^3/uL Basophils # (0.01-0.08) x10^3/uL PT 13.0 H (9.4-12.5) SECONDS INR 1.21 (0.8-3.0) Puncture Site pCO2 (35-45) mmHg pO2 (75-100) mmHg Base Excess (-2.0-2.0) O2 Saturation (94-100) g/dF ABG pH (7.35-7.45) ABG HCO3 (22-28) ABG O2 Sat (Measured) (95-100) % Gideon Test A-a Gradient a/A Ratio Hemoglobin Carboxyhemoglobin (0.0-6.9) % THgb Methemoglobin (1.4-1.5) % Potassium 3.3 L (3.5-5.1) Temperature C POC O2 Flow Rate % Sodium 142 (135-145) mmol/L Chloride 101 (98-107) mmol/L Carbon Dioxide 37 H (22-30) mmol/L Anion Gap 6.2 (5-15) MEQ/L BUN 12 (9-20) mg/dL Creatinine 0.55 L (0.66-1.25) mg/dL Estimated GFR 117.0 ML/MIN Glucose 125 H (74-106) mg/dL Lactic Acid (0.4-2.0) Calcium 8.4 (8.4-10.2) mg/dL Magnesium 1.7 (1.6-2.3) mg/dL Total Bilirubin 1.90 H (0.2-1.3) mg/dL AST 83 H (17-59) U/L ALT 49 (0-50) U/L Alkaline Phosphatase 92 (38-126) U/L Troponin I < 0.012 (0.000-0.033) ng/mL NT-Pro-B Natriuret Pep 995 (<300) pg/mL Serum Total Protein 7.1 (6.3-8.2) g/dL Albumin 3.3 L (3.5-5.0) g/dL Procalcitonin 0.181 H (0.030-0.080) ng/mL Slides for Path Review 09/26/24 09/26/24 Range/Units 14:05 13:50 WBC 5.6 (4.23-9.07) x10^3/uL RBC 5.31 (4.63-6.08) x10^6/uL Hgb 15.9 (13.7-17.5) g/dL Hct 49.6 (40.1-51.0) % MCV 93.4 H (79.0-92.2) fL MCH 29.9 (25.7-32.2) pg MCHC 32.1 L (32.3-36.5) g/dL RDW 14.5 H (11.6-14.4) % Plt Count 69 L (163-337) x10^3/uL MPV 10.7 (9.4-12.4) fL Gran % 70.3 H (34.0-67.9) % Immature Gran % (Auto) 1.1 H (0.001-0.429) % Nucleat RBC Rel Count 0.0 (0.00-0.2) % Eos # (Auto) 0 L (0.04-0.54) x10^3/uL Immature Gran # (Auto) 0.06 H (0.001-0.031) x10^3u/L Absolute Lymphs (auto) 1.03 L (1.32-3.57) x10^3/uL Absolute Monos (auto) 0.56 (0.30-0.82) x10^3/uL Absolute Nucleated RBC 0.00 (0.00-0.012) x10^3u/L Lymphocytes % 18.4 L (21.8-53.1) % Monocytes % 10.0 (5.3-12.2) % Eosinophils % 0.0 L (0.8-7.0) % Basophils % 0.2 (0.2-1.2) % Absolute Granulocytes 3.93 (1.78-5.38) x10^3/uL Basophils # 0.01 (0.01-0.08) x10^3/uL PT (9.4-12.5) SECONDS INR (0.8-3.0) Puncture Site LEFT RADIAL pCO2 51 H (35-45) mmHg pO2 73 L (75-100) mmHg Base Excess 14.0 H (-2.0-2.0) O2 Saturation 93.6 L (94-100) g/dF ABG pH 7.50 H (7.35-7.45) ABG HCO3 39.8 H* (22-28) ABG O2 Sat (Measured) 97.1 (95-100) % Gideon Test YES A-a Gradient 91 a/A Ratio 0.45 Hemoglobin 16.4 Carboxyhemoglobin 2.8 (0.0-6.9) % THgb Methemoglobin 0.7 L (1.4-1.5) % Potassium 3.1 L (3.5-5.1) Temperature 37.0 C POC O2 Flow Rate 32 % Sodium (135-145) mmol/L Chloride (98-107) mmol/L Carbon Dioxide (22-30) mmol/L Anion Gap (5-15) MEQ/L BUN (9-20) mg/dL Creatinine (0.66-1.25) mg/dL Estimated GFR ML/MIN Glucose (74-106) mg/dL Lactic Acid 2.3 H (0.4-2.0) Calcium (8.4-10.2) mg/dL Magnesium (1.6-2.3) mg/dL Total Bilirubin (0.2-1.3) mg/dL AST (17-59) U/L ALT (0-50) U/L Alkaline Phosphatase (38-126) U/L Troponin I (0.000-0.033) ng/mL NT-Pro-B Natriuret Pep (<300) pg/mL Serum Total Protein (6.3-8.2) g/dL Albumin (3.5-5.0) g/dL Procalcitonin (0.030-0.080) ng/mL Slides for Path Review YES - Progress Progress: improved, re-examined Air Movement: good Progress Note: 09/26/24 14:06 My medical decision making and the assignment of moderate complexity to this patient's medical issue today is based on review of the patient's past medical history, review the patient's medication list, reviewed patient drug allergy list, history present illness and physical findings on examination. The patient's workup includes CBC, CMP, museum level, procalcitonin, lactic acid level, ABG, chest x-ray, BNP, twelve-lead EKG, troponin level and social service consultation. Differential diagnosis includes but is not limited to myocardial infarction, CHF exacerbation, COPD exacerbation, pneumonia 09/26/24 15:53 The chest x-ray final read was by the radiologist. I reviewed the impression. The impression states compared to similar study dated 09/21/2024, there is diffuse bilateral airspace disease with interval improvement in mild clearing of bilateral lungs. There are no new cardiopulmonary abnormalities. Blood Culture(s) Obtained: Yes Antibiotics given: No Counseled pt/family regarding: lab results, diagnosis, rad results Medical Desision Making - Diagnostic Testing Diagnostic test were ordered, analyzed, and reviewed by me: Yes Radiological Interpretation: Reviewed by me, Teleradiologist Report - Risk of complications Low Risk: Low risk of morbidity from additional dx testing or treatment - Departure Departure Disposition: Extended Care Facility Clinical Impression: Shortness of breath Condition: Stable Critical Care Time: No Referrals: KETAN STERN [Primary Care Provider] - Follow up/PCP as directed
[2024-09-26 13:55] LABS: A-aADO2 91; ABG HEMOGLOBIN 16.4; ABG POTASSIUM 3.1 (3.5-5.1); ARTERIAL BLD GAS O2 SATURATION 97.1 % (95-100); ARTERIAL BLOOD GAS FIO2 32 %; ARTERIAL BLOOD GAS PCO2 51 mmHg (35-45); ARTERIAL BLOOD GAS PO2 73 mmHg (75-100); CARBOXYHEMOGLOBIN 2.8 % THgb (0.0-6.9); HCO3- 39.8 (22-28); HGB O2 SAT 93.6 g/dF (94-100); Lactic Acid 2.3 (0.4-2.0); Methhemoglobin 0.7 % (1.4-1.5); paO2 pAO1 0.45
[2024-09-26 13:56] LABS: ABG SITE LEFT RADIAL; ALLEN TEST OK? YES
[2024-09-26 14:17] LABS: Absolute Neutrophil Ct (ANC) 3.93 x10^3/uL (1.78-5.38); BASOPHIL % 0.2 % (0.2-1.2); Basophil (Absolute #) 0.01 x10^3/uL (0.01-0.08); Eosinophil (Absolute #) 0 x10^3/uL (0.04-0.54); Hematocrit 49.6 % (40.1-51.0); Hemoglobin 15.9 g/dL (13.7-17.5); IMMATURE GRAN # 0.06 x10^3u/L (0.001-0.031); IMMATURE GRAN % 1.1 % (0.001-0.429); Lymphocyte (Absolute #) 1.03 x10^3/uL (1.32-3.57); Lymphocytes % 18.4 % (21.8-53.1); Mean Cell Volume 93.4 fL (79.0-92.2); Mean Corpuscular Hemoglobin 29.9 pg (25.7-32.2); Mean Corpuscular Hgb Concent. 32.1 g/dL (32.3-36.5); Mean Platelet Volume 10.7 fL (9.4-12.4); Monocyte (Absolute #) 0.56 x10^3/uL (0.30-0.82); Neutrophil % 70.3 % (34.0-67.9); Platelet Count 69 x10^3/uL (163-337); Red Blood Count 5.31 x10^6/uL (4.63-6.08); Red Cell Distribution Width 14.5 % (11.6-14.4); White Blood Count 5.6 x10^3/uL (4.23-9.07)
[2024-09-26 14:28] LABS: INR 1.21 (0.8-3.0)
[2024-09-26 14:41] LABS: Slide Review 1 YES
[2024-09-26 14:45] LABS: ALBUMIN 3.3 g/dL (3.5-5.0); ANION GAP 6.2 MEQ/L (5-15); BILIRUBIN,TOTAL 1.9 mg/dL (0.2-1.3); Calcium 8.4 mg/dL (8.4-10.2); Creatinine 1 0.55 mg/dL (0.66-1.25); MAGNESIUM 1.7 mg/dL (1.6-2.3); PROCALCITONIN 0.181 ng/mL (0.030-0.080); Potassium 3.3 mmol/L (3.5-5.1); Total Protein 7.1 g/dL (6.3-8.2)
--- NOTE | 2024-09-26 15:13 | XRAY ---
Indication: Hypoxia. Diagnosis Influenza A Comparison: September 21, 2024 Portable chest again demonstrates diffuse bilateral airspace disease. Interval improvement with mild clearing in both upper lungs. No consolidation/large effusion. Heart not enlarged. No new cardiopulmonary abnormalities.
[2024-09-26 15:18] VITALS: RESP 19
[2024-09-26 18:46] VITALS: BP 146/96; PULSE 80
== END 2024-09-26 18:00 | disposition home or self-care (01) ==
LOC: ED 13:25
DX: R06.02 Shortness of breath (principal); I11.0 Hypertensive heart disease with heart failure; I50.9 Heart failure, unspecified; Z79.01 Long term (current) use of anticoagulants; Z79.899 Other long term (current) drug therapy; Z72.0 Tobacco use; Z99.81 Dependence on supplemental oxygen
CPT/HCPCS: 36415; 36600; 71045; 80053; 82375; 82803; 83605; 83735; 83880; 84145; 84484; 85025; 85610; 87040; 93005; 93041; 99284; 99285